=== PATIENT | female | born 1945 | race Caucasian/White ===

== ENCOUNTER 2022-07-02 09:07 | Outpatient (CLI) | payer MEDICARE, BC, SELFPAY ==
--- OUTSIDE RECORDS SUMMARY | 2022-07-02 09:15 | XMS_ITS | Encounter Summary ---
:1945 Author Organization [facility] Address [address] [place] [address] Care Team Providers Name Role Phone Elsewhere, Pcp Primary Care Provider Unavailable Encounter Details Date Type Department Care Team Description 11/05/2021 Clinical Communication Department of Arron Patricio Ophthalmology ar Knox M.D. [place], [place] [address] [place] [address] [address] [place] [phone] Social History Tobacco Use Types Packs/Day Years Used Date Smoking Tobacco: Never Smokeless Tobacco: Never Alcohol Habits Answer Date Recorded How often do you have a drink containing alcohol? Never 04/09/2022 How many drinks containing alcohol do you have on a typical Not asked day when you are drinking? How often do you have six or more drinks on one occasion? No t asked Social Isolation Answer Date Recorded In a typical week, how many times do you More than three fany es a week 04/09/2022 talk on the phone with family, friends, or neighbors? How often do you get together with friends More than three t imes a week 04/09/2022 or relatives? How often do you attend yazdanism or More than 4 times per year 04/09/2022 jain services? Do you belong to any clubs or Yes 04/09/2022 organizations such as yazdanism groups, unions, fraternal or athletic groups, or school groups? How often do you attend meetings of the More than 4 times pe r year 04/09/2022 clubs or organizations you belong to? Are you now , , , 04/09/2022 , never or living with a partner? Physical Activity Answer Date Recorded On average, how many days per week do you engage in moderate to 2 days 04/09/2022 strenuous exercise (like walking fast, running, jogging, dancing, swimming, biking, or other activities that cause a light or heavy sweat)? On average, how many minutes do you engage in exercise at th is 20 min 04/09/2022 level? Stress Answer Date Recorded Do you feel stress - tense, restless, nervous, or anxious, N ot at all 04/09/2022 or unable to sleep at night because your mind is troubled all the time - these days? Financial Resource Strain Answer Date Recorded How hard is it for you to pay for the very basics like Not h eloy at all 04/09/2022 food, housing, medical care, and heating? Intimate Partner Violence Answer Date Recorded Within the last year, have you been afraid of your partner o r No 04/09/2022 ex-partner? Within the last year, have you been humiliated or emotionall y No 04/09/2022 abused in other ways by your partner or ex-partner? Within the last year, have you been kicked, hit, slapped, or No 04/09/2022 otherwise physically hurt by your partner or ex-partner? Within the last year, have you been raped or forced to have any No 04/09/2022 kind of sexual activity by your partner or ex-partner? Food Insecurity Answer Date Recorded Within the past 12 months, you worried that your food would Never true 04/09/2022 run out before you got money to buy more. Within the past 12 months, the food you bought just didn't N ever true 04/09/2022 last and you didn't have money to get more. Transportation Needs Answer Date Recorded In the past 12 months, has lack of transportation kept you f rom No 04/09/2022 medical appointments or from getting medications? In the past 12 months, has lack of transportation kept you f rom No 04/09/2022 meetings, work, or getting things needed for daily living? Housing Stability Answer Date Recorded In the last 12 months, was there a time when you were not ab le No 04/09/2022 to pay the mortgage or rent on time? In the last 12 months, how many places have you lived? 1 04/09/2022 In the last 12 months, was there a time when you did not hav e a No 04/09/[address] or slept in a snf (including now)? Education Answer Date Recorded What is the highest level of school Associate degree: gerardo talbert, 04/02/2020 you have completed or the highest technical, or vocational p nasir degree you have received? Sex Assigned at Date Recorded Female 03/05/2018 7:34 PM CDT documented as of this encounter Miscellaneous Notes Telephone Encounter - Arielle Adams C.OMelissa - 11/05/2021 4:11 PM CDT ordered Telephone Encounter - Lalito Florentino - 11/05/2021 3:[address] order for Dr Patricio Lymphoma, ptosis lid Per CONSULTANT DIETITIAN: Slit lamp photos Thanks documented in this encounter Plan of Treatment Not on filedocumented as of this encounter Results Slit Lamp Photography - OU - Both Eyes (12/14/2021 4:03 PM CDT) Specimen (Source) Anatomical Location Collection Method / Collectio n Time Received Time / Laterality Volume Narrative OPHTHALMOLGY NON-IMAGING ORDERS - 4:49 PM CDT Left Eye Photos confirm and document clinical fin dings of diagnosis and are of sufficient quality to permit their use t o follow disease progression. Notes Subconjunctival lymphoma, left eye; ptos is, left upper eyelid; similar to previous photograph Arron Patricio M.D. 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
--- OUTSIDE RECORDS SUMMARY | 2022-07-02 09:15 | XMS_ITS | Encounter Summary ---
:1945 Author Organization [facility] Address [address] [place] [address] Care Team Providers Name Role Phone Elsewhere, Pcp Primary Care Provider Unavailable Reason for Visit Reason Comments Pre-visit Intake Intake Assessment Encounter Details Date Type Department Care Team Description 10/02/2021 Clinical Division of Kevin Pre-visit Tera hodges; Communication Hematology in Arturo Ricks, Intake As avery Castillo M.D. [place] [address] [facility] [address] [place] [phone] Social History Tobacco Use Types Packs/Day Years [...] or relatives? How often do you attend islam or More than 4 times per year 04/09/2022 scientology services? Do you belong to any clubs or Yes 04/09/2022 organizations such as islam groups, unions, fraternal or athletic groups, or [...] PM CDT documented as of this encounter Plan of Treatment Not on filedocumented as of this encounter Visit Diagnoses Not on filedocumented in this encounter Care Teams District Commercial Superintendent Relationship Specialty Start Date End Date Elsewhere, Pcp PCP - General Family Medicine 03/04/21 documented as of this encounter
--- OUTSIDE RECORDS SUMMARY | 2022-07-02 09:15 | XMS_ITS | Encounter Summary ---
:1945 Author Organization [facility] Address [address] [place] [address] Care Team Providers Name Role Phone Elsewhere, Pcp Primary Care Provider Unavailable Encounter Details Date Type Department Care Team Description 10/28/2021 Orders Only Division of [place] [facility] Hematology in Arturo Ricks Macroglobu linemia (HCC) Ana Castillo (Primary Dx) [place] [address] [facility] [address] [place] [phone] Social History Tobacco Use Types Packs/Day Years [...] or relatives? How often do you attend spiritism or More than 4 times per year 04/09/2022 mandaen services? Do you belong to any clubs or Yes 04/09/2022 organizations such as spiritism groups, unions, fraternal or athletic groups, or [...] minutes do you engage in exercise at is 20 min 04/09/2022 level? Stress Answer [...] place to sleep or slept in a penitentiary (including now)? Education Answer Date Recorded What is the highest level of school Associate degree: gerardo ubaldoraul, 04/02/2020 you have completed or the highest technical, or vocational p nasir degree you have received? Sex Assigned at Date Recorded Female 03/05/2018 7:34 PM CDT documented as of this encounter Plan of Treatment Not on filedocumented as of this encounter Results (ABNORMAL) Immunoglobulin Free Light Chains (04/07/2022 8:15 AM CDT) Analysis Performed At Patho logist Time Signature Crumpler Free 2.58 (H) 0.3300 - 04/08/2022 [facility] Light Chain, S 1.94 mg/dL 10:03 AM CDT Lambda Free 0.4300 (L) 0.5700 - 04/08/2022 [facility] Light Chain, S 2.63 mg/dL 10:18 AM CDT Crumpler/Lambda 6.00 (H) 0.2600 - 04/08/2022 [facility] FLC Ratio 1.65 10:18 AM CDT Specimen Anatomical Collection Method Collection Time Receive d Time (Source) Location / / Volume Laterality Blood (Blood, 04/07/2022 8:15 AM 04/08/20 22 6:23 Venous) CDT AM CDT Resulting Agency Comment Mailed In Specimen Arturo Ricks M.D. LAB BLOOD ADD-ON Performing Organization Address City/State/ZIP Code Phon e Number [facility] [address] [place], [place] [address] [facility] [place] [address] Laboratory Medicine and Pathology [address] [place] (ABNORMAL) Electrophoresis, Protein (04/07/2022 8:15 AM CDT) Patholo gist Method Time Signature Total Protein, 6.7 6.3 - 7.9 04/08/2022 [facility] S g/dL 7:17 AM CDT Albumin 3.5 3.4 - 4.7 04/08/2022 [facility] g/dL 1:23 PM CDT Alpha-1 0.3 0.1 - 0.3 04/08/2022 [facility] Globulin g/dL 1:23 PM CDT Alpha-2 1.1 (H) 0.6 - 1.0 04/08/2022 [facility] Globulin g/dL 1:23 PM CDT Beta-Globulin 0.9 0.7 - 1.2 04/08/2022 [facility] g/dL 1:23 PM CDT Gamma-Globulin 1.0 0.6 - 1.6 04/08/2022 [facility] g/dL 1:23 PM CDT A/G Ratio 1.12 04/08/2022 [facility] 1:23 PM CDT M spike 0.8 (H) g/dL 04/08/2022 [facility] 1:23 PM CDT Impression M-spike in 04/08/2022 [facility] gamma 1:23 PM CDT fraction. Specimen Anatomical Collection Method Collection Time Receive d Time (Source) Location / / Volume Laterality Blood (Blood, 04/07/2022 8:15 AM 04/08/20 22 6:21 Venous) CDT AM CDT Resulting Agency Comment Mailed In Specimen Authorizing Provider Result Sammi Ricks M.D. LAB BLOOD ADD-ON Performing Organization Address City/State/ZIP Code Phon e Number [facility] [address] [place], [place] [address] SUPPORT CENTER [facility] [place] [place] [address] Laboratory Medicine and Pathology [address] [place] LD (Lactate Dehydrogenase) (04/07/2022 8:15 AM CDT) Analysis Performed At Patho logist Time Signature Lactate 189 122 - 222 04/07/2022 [facility] Dehydrogenase U/L 9:31 PM CDT (LD), S Specimen Anatomical Collection Method Collection Time Receive d Time (Source) Location / / Volume Laterality Blood (Blood, 04/07/2022 8:15 AM 04/07/20 22 7:43 Venous) CDT PM CDT Resulting Agency Comment Mailed In Specimen Arturo Rciks M.D. LAB BLOOD NON ADD-ON Performing Organization Address City/State/ZIP Code Phon e Number [facility] - [address] [place], [place] [address] [facility] [place] [address] [facility] 200 [facility] (ABNORMAL) Comprehensive Metabolic Panel (04/07/2022 8:15 AM CDT) P athologist Signature Potassium, S 3.8 3.6 - 5.2 04/07/2022 DTL mmol/L 8:03 PM CDT Sodium, S 136 135 - 145 04/07/2022 DTL mmol/L 8:03 PM CDT Chloride, S 97 (L) 98 - 107 04/07/2022 DTL mmol/L 8:03 PM CDT Bicarbonate, S 26 22 - 29 04/07/2022 DTL mmol/L 8:03 PM CDT Anion Gap 13 7 - 15 04/07/2022 DTL 8:03 PM CDT BUN (Blood Urea 20 6 - 21 04/07/2022 DTL Nitrogen), S mg/dL 8:03 PM CDT Creatinine 0.76 0.59 - 04/07/2022 DTL 1.04 mg/dL 8:03 PM CDT eGFR-Non 76 >=60 04/07/2022 DTL Black/ mL/min/BSA 8:03 PM CDT Armenian Comment: ----ADDITIONAL INFORMATION---- Estimated GFR calculated using the 2009 CKD_EPI creatinine equation. eGFR-Black/ 88 >=60 mL/min/BSA 2021 8:03 PM CDT DTL Comment: ----ADDITIONAL INFORMATION---- Estimated GFR calculated using the 2009 CKD_EPI creatinine equation. Calcium, Total, S 9.0 8.8 - 10.2 mg/dL 04/07/2022 8:03 PM CDT DTL Glucose, S 96 70 - 140 mg/dL 04/07/2022 8:03 PM CDT D TL Protein, Total, S 6.6 6.3 - 7.9 g/dL 04/07/2022 8:03 P M CDT DTL Albumin, S 4.4 3.5 - 5.0 g/dL 04/07/2022 8:03 PM CDT D TL Aspartate Aminotransferase (AST), 23 8 - 43 U/L 04/07 8:03 PM CDT DTL S Alkaline Phosphatase, S 62 35 - 104 U/L 04/07/2022 8: 03 PM CDT DTL Alanine Aminotransferase (ALT), S 19 7 - 45 U/L 04/07 8:03 PM CDT DTL Bilirubin, Total, S 0.8 <=1.2 mg/dL 04/07/2022 8:03 PM CDT DTL Specimen Anatomical Collection Method Collection Time Receive d Time (Source) Location / / Volume Laterality Blood (Blood, 04/07/2022 8:15 AM 04/07/20 7:43 Venous) CDT PM CDT Resulting Agency Comment Mailed In Specimen Arturo Ricks M.D. LAB BLOOD ADD-ON Performing Organization Address City/State/ZIP Code Phon e Number [facility] - [address] [place] [address] [facility] [place] [address] [facility] 200 [facility] (ABNORMAL) CBC with Differential, Blood (04/07/2022 8:15 AM CDT) [facility] gist Method Time Signature Hemoglobin 13.0 11.6 - 04/07/2022 DTL 15.0 g/dL 7:52 PM CDT Hematocrit 39.7 35.5 - 04/07/2022 DTL 44.9 % 7:52 PM CDT Erythrocytes 4.47 3.92 - 04/07/2022 DTL 5.13 7:52 PM CDT x10(12)/L MCV 88.8 78.2 - 04/07/2022 DTL 97.9 fL 7:52 PM CDT RBC Distrib Width 12.9 12.2 - 04/07/2022 DTL 16.1 % 7:52 PM CDT Platelet Count 225 157 - 371 04/07/2022 DTL x10(9)/L 7:52 PM CDT Leukocytes 3.1 (L) 3.4 - 9.6 04/07/2022 DTL x10(9)/L 7:52 PM CDT Neutrophils 1.94 1.56 - 04/07/2022 DTL 6.45 7:52 PM CDT x10(9)/L Lymphocytes 0.65 (L) 0.95 - 04/07/2022 DTL 3.07 7:52 PM CDT x10(9)/L Monocytes 0.30 0.26 - 04/07/2022 DTL 0.81 7:52 PM CDT x10(9)/L Eosinophils 0.19 0.03 - 04/07/2022 DTL 0.48 7:52 PM CDT x10(9)/L Basophils 0.03 0.01 - 04/07/2022 DTL 0.08 7:52 PM CDT x10(9)/L Specimen Anatomical Collection Method Collection Time Receive d Time (Source) Location / / Volume Laterality Blood (Blood, 04/07/2022 8:15 AM 04/07/20 22 7:43 Venous) CDT PM CDT Resulting Agency Comment Mailed In Specimen Arturo Ricks M.D. LAB BLOOD ADD-ON Performing Organization Address City/State/ZIP Code Phon e Number [facility] - [address] [place], [place] [address] [facility] [place] [address] [facility] [address] documented in this encounter Visit Diagnoses Diagnosis Waldenstrom's Macroglobulinemia (HCC) - Primary documented in this encounter Care Teams Wellness Trainer Relationship Specialty Start Date End Date Elsewhere, Pcp PCP - General Family Medicine 03/04/21 documented as of this encounter
--- OUTSIDE RECORDS SUMMARY | 2022-07-02 09:15 | XMS_ITS | Encounter Summary ---
:1945 Author Organization [facility] Address [address] [place] [address] Care Team Providers Name Role Phone Elsewhere, Pcp Primary Care Provider Unavailable Encounter Details Date Type Department Care Team Description 05/11/2022 Ancillary Procedure Department of Ophthalmology Social History Tobacco Use Types Packs/Day Years [...] or relatives? How often do you attend hindu or More than 4 times per year 04/09/2022 mormonism services? Do you belong to any clubs or Yes 04/09/2022 organizations such as hindu groups, unions, fraternal or athletic groups, or [...] place to sleep or slept in a long-term (including now)? Education Answer Date Recorded What is the highest level of school Associate degree: gerardo talbert, 04/02/2020 you have completed or the highest technical, or vocational p nasir degree you have received? Sex Assigned at Date Recorded Female 03/05/2018 7:34 PM CDT documented as of this encounter Plan of Treatment Not on filedocumented as of this encounter Procedures Procedure Name Priority Date/Time Associated Comments Diagnosis OPHTHALMOLOGY IMAGE Routine 05/11/2022 12:00 Resu lts for this EXAM AM CDT procedure are i n the results section. documented in this encounter Results Eyes Slit Lamp-Ophthalmology Image Exam (05/11/2022 12:00 AM CDT) Specimen (Source) Anatomical Location Collection Method / Collectio n Time Received Time / Laterality Volume Narrative IIMS - 05/11/2022 2:50 PM CDT This order has been created and auto-finalized to support the import of images acquired without order. The clini italo documentation to support these images can be found on the encounter melita t produced images. Provider Not In System IMG NON RAD IMAGING PROCEDUR ES Performing Organization Address City/State/ZIP Code Phon e Number [facility] IIMS NA documented in this encounter Visit Diagnoses Not on filedocumented in this encounter Care Teams Bog Worker Relationship Specialty Start Date End Date Elsewhere, Pcp PCP - General Family Medicine 03/04/21 documented as of this encounter
--- OUTSIDE RECORDS SUMMARY | 2022-07-02 09:15 | XMS_ITS | Encounter Summary ---
:1945 Author Organization [facility] Address [address] [place] [address] Care Team Providers Name Role Phone Elsewhere, [...] More than 4 times per year 04/09/2022 islam services? Do you belong to any clubs [...] place to sleep or slept in a longterm (including now)? Education Answer Date Recorded What [...] on filedocumented in this encounter Care Teams Cutter Plastics Rolls Relationship Specialty Start Date End Date Elsewhere, Pcp PCP - General Family Medicine 03/04/21 documented as of this encounter
--- OUTSIDE RECORDS SUMMARY | 2022-07-02 09:15 | XMS_ITS | Encounter Summary ---
:1945 Author Organization [facility] Address [address] [place] [address] Care Team Providers Name Role Phone Elsewhere, Pcp Primary Care Provider Unavailable Reason for Visit Reason Comments Intraocular Lens Implant Status Post Appointment Request (Routine) - Closed Specialty Diagnoses / Procedures Referred By Contact Refer red To Contact Ophthalmology Diagnoses Ptosis Eyelid Arron Patricio M.D. [address] [place] [phone] Referral ID Status Reason Start Date Expiration Date Visits Requ ested Visits Authorized [id number] Closed 11/05/2021 11/05/2022 1 Encounter Details Date Type Department Care Team Description 12/14/2021 Office Visit Department of Arron Patricio Blurred Visserenity mazariegos Ophthalmology ar Knox M.D. (Primary Dx) [place], [place] [address] [place] [address] [place] [phone] Social History Tobacco Use Types Packs/Day Years [...] or relatives? How often do you attend druze or More than 4 times per year 04/09/2022 orthodoxy services? Do you belong to any clubs or Yes 04/09/2022 organizations such as druze groups, unions, fraternal or athletic groups, or [...] place to sleep or slept in a fci (including now)? Education Answer Date Recorded What is the highest level of school Associate degree: gerardo talbert, 04/02/2020 you have completed or the highest technical, or vocational p nasir degree you have received? Sex Assigned at Date Recorded Female 03/05/2018 7:34 PM CDT documented as of this encounter Progress Notes Arron Patricio M.D. - 12/14/2021 2:45 PM CDT #1 Blurred and double vision Mainly when she does not wear her glasses and is looking in extreme gaze. One wearing glasses she says she is doing well. Discussed and reassured that this can be normal. 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 Discussed that this might interfere with vision and if it is bothering her then we should consider treating the lymphoma followed by reassessing the eyelid position. She understands. 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 s/p chemo, ended February 2017 Today looks stable, mild thickening of subconj tissue. Plan: Continue to observe. Continue follow-up with heme. #4 Waldenstrom macroglobulinemia #5 Pseudophakia, both eyes Stable documented in this encounter Plan of Treatment Not on filedocumented as of this encounter Visit Diagnoses Diagnosis Blurred Vision - Primary documented in this encounter Care Teams Packager Relationship Specialty Start Date End Date Elsewhere, Pcp PCP - General Family Medicine 03/04/21 documented as of this encounter
--- OUTSIDE RECORDS SUMMARY | 2022-07-02 09:15 | XMS_ITS | Clinical Summary ---
:1945 Author Organization [facility] [place] [address] Care Team Providers Name Role Phone Brijesh Ken MD Primary Care Provider Allergies No known active allergies Medications Medication Sig Dispensed Refills Start Date End Date Status FISH OIL 1,000 MG 2 bid (500 mg EPA 0 01/02/2007 Active CAPIndications: + DHA per Palpitations capusule) COQ10 SG 100 100 MG-100 one daily 0 01/02/2007 Active UNIT CAPIndications: Palpitations GARLIC 400 MG TAB, two tabs daily 0 06/25/2008 Active DELAYED RELEASE VITAMIN D-3 400 UNIT taking 5000 IU 0 06/25/2009 Active TAB daily multivitamin (MVI) Take 1 tablet by 0 10/28/2009 Active tablet mouth once daily. Active Problems Problem Noted Date MDRO (multiple drug resistant organisms) resistance Unspecified essential hypertension 01/02/2007 Waldenstrom's 01/02/2007 Overview: Followed by Dr. Freitas Gets intermittan Retuxan treatment when Hemoglobin<10.0 or IGA > 6000 Immunizations Name Administration Dates Next Due Pneumococcal Poly,23-Valent (Pneumovax) 01/30/2003 Td (Age >=7 Years) 01/30/2003 Td, Preservative Free (age >= 7 Years) 04/16/2010 Family History Medical History Relation Name Comments Heart Disease Father Cancer-colon Mother Cancer Sister uterine cancer Relation Name Status Comments Father (Age 80) CHF Mother (Age 85) colon cancer Sister Social History Tobacco Use Types Packs/Day Years Used Date Never Smoker Tobacco Cessation: Counseling Given: Yes Alcohol Use Standard Drinks/Week Comments No 0 (1 standard drink = 0.6 oz pure alcoho l) Sex Assigned at Date Recorded Not on file Obstetrics History Para Term AB IAB SAB Ectopic Multiple Living Live Births 4 3 2 1 1 0 1 0 0 3 Date Outcome GA Total Labor/2nd/3rd Weight Sex Delivery Anes PTL Izzy A 1 A5 Name Clin Labor SAB Term Term Last Filed Vital Signs Vital Sign Reading Time Taken Comments Blood Pressure 158/79 08/31/2014 2:51 PM B[employer]ER [employer] BOX BUILDER Pulse 76 08/31/2014 2:51 PM [employer]OX BUILDER Temperature 36.8 ??C (98.2 ??F) 08/31/2014 2:51 PM B[employer] B[employer] BUILDER Respiratory Rate - - Oxygen Saturation 97% 08/31/2014 2:51 PM B[employer]OX BUILDER Inhaled Oxygen Concentration - - Weight 71.7 kg (158 lb) 08/31/2014 2:51 PM B[employer]ER [employer] BOX BUILDER Height 165.1 cm (5' 5) 07/11/2009 8:05 AM B[employer] BOX BUILDER Body Mass Index 26.29 07/11/2009 8:05 AM B[employer] BOX BUILDER Plan of Treatment Health Maintenance Due Date Last Done Comments COVID-19 vaccine series (#1) 05/18/1946 Tdap 11/16/1955 Depression screening for age 12+ 1956 BMI (ht and wt on same day) for age 18+ 1962 Hepatitis C screening for age 18-79 1962 Zoster (shingles) series for age 50+ (1 of 1994 2) Pneumococcal series for age 65+ (2 - PCV) 01/31/20042002 Tetanus booster 04/16/2020 04/16/2010, 01/30/2003 Influenza for age 65+ 04/22/2022 DEXA/DXA scan for age 65+ Completed 11/04/2009, 07/06/2007 Results Not on filefrom Last 3 Months Insurance Payer Benefit Plan / Subscriber ID Effective Dates Phone Addre ss Type Group BLUE CROSS MR BLUE CROSS [id number] 2014-Giselle GOMEZ [id number] [employer] BLUE MR luma [facility] [place] PB ONLY [phone] (Work) [id number] Care Teams Dry Cleaning Manager Relationship Specialty Start Date End Date Brijesh Ken MD PCP - General 08/31/141999 [place] [address]
--- OUTSIDE RECORDS SUMMARY | 2022-07-02 09:15 | XMS_ITS | Encounter Summary ---
:1945 Author Organization [facility] Address [address] [place] [address] Care Team Providers Name Role Phone Elsewhere, [...] or relatives? How often do you attend sikh or More than 4 times per year 04/09/2022 adventist services? Do you belong to any clubs or Yes 04/09/2022 organizations such as sikh groups, unions, fraternal or athletic groups, or [...] place to sleep or slept in a assisted (including now)? Education Answer Date Recorded What [...] Associated Comments Diagnosis OPHTHALMOLOGY IMAGE Routine 05/11/2022 12:20 Resu lts for this EXAM AM CDT procedure are i n the results section. documented in this encounter Results Eyes Slit Lamp-Ophthalmology Image Exam (05/11/2022 12:20 AM CDT) Specimen (Source) Anatomical Location Collection Method / Collectio n Time Received Time / Laterality Volume Narrative IIMS - 05/11/2022 3:20 PM CDT This order has been created [...] on filedocumented in this encounter Care Teams Lathe Operator Contact Lens Relationship Specialty Start Date End Date Elsewhere, Pcp PCP - General Family Medicine 03/04/21 documented as of this encounter
--- OUTSIDE RECORDS SUMMARY | 2022-07-02 09:15 | XMS_ITS | Encounter Summary ---
:1945 Author Organization [facility] Address [address] [place] [address] Care Team Providers Name Role Phone Elsewhere, [...] or relatives? How often do you attend christianity or More than 4 times per year 04/09/2022 yazidi services? Do you belong to any clubs or Yes 04/09/2022 organizations such as christianity groups, unions, fraternal or athletic groups, or [...] place to sleep or slept in a detention (including now)? Education Answer Date Recorded What [...] on filedocumented in this encounter Care Teams Inbound Sales Consultant Relationship Specialty Start Date End Date Elsewhere, Pcp PCP - General Family Medicine 03/04/21 documented as of this encounter
--- OUTSIDE RECORDS SUMMARY | 2022-07-02 09:15 | XMS_ITS | Encounter Summary ---
:1945 Author Organization [facility] Address [address] [place] [address] Care Team Providers Name Role Phone Elsewhere, Pcp Primary Care Provider Unavailable Reason for Referral Outpatient (Routine) - Closed Specialty Diagnoses / Procedures Referred By Contact Refer red To Contact Video Medicine Diagnoses Waldenstrom's Macroglobulinemia (HCC) [facility] Arturo Mckeon M.D. [address] [place] [address] Referral ID Status Reason Start Date Expiration Date Visits Requ ested Visits Authorized [id number] Closed 10/06/2021 10/06/2022 1 1 HAT LINUX ADMINISTRATOR Reason for Visit Appointment Request (Routine) - Closed Specialty Diagnoses / Procedures Referred By Contact Refer red To Contact Hematology Diagnoses Lymphoma (HCC) Referral ID Status Reason Start Date Expiration Date Visits Requ ested Visits Authorized [id number] Closed 07/23/2021 07/23/2022 1 1 Encounter Details Date Type Department Care Team Description 10/06/2021 [facility] Arturo Ricks, Macroglobu linemia (HCC) Ana Castillo (Primary Dx) [address] [place] [phone] [phone] Social History Tobacco Use Types Packs/Day Years [...] or relatives? How often do you attend adventism or More than 4 times per year 04/09/2022 yarsanism services? Do you belong to any clubs or Yes 04/09/2022 organizations such as adventism groups, unions, fraternal or athletic groups, or [...] place to sleep or slept in a correction (including now)? Education Answer Date Recorded What is the highest level of school Associate degree: gerardo talbert, 04/02/2020 you have completed or the highest technical, or vocational p nasir degree you have received? Sex Assigned at Date Recorded Female 03/05/2018 7:34 PM CDT documented as of this encounter Progress Notes Arturo Aleman M.D. - 10/06/2021 9:30 AM CST SUBJECTIVE REASON FOR VISIT Waldentrom's macroglobulinemia Consult conducted via real-time audio/video technology by Soraya Ricks M.D. in [facility] to the patient in Patient's Home HISTORY OF PRESENT ILLNESS Patient is a 75 y.o. woman with Waldentrom's macroglobulinemia whose hematological history may be summarized as follows: 1. 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 9439-2799: Treated with rituximab, intermittently, totaling 10 different series. 3. November 14 to March 07, 2012: Treated with dexamethasone plus rituximab plus cyclophosphamide for 6 cycles. 4. November 08 to January 25, 2017: Treated with rituximab plus bendamustine for 3 cycles. 5. January 2017 to present: Observed without treatment, maintaining partial response. INTERVAL HISTORY Real-time video visit to follow-up on Waldentrom's macroglobulinemia. Last visit was on April 07, 2021. No clinical events in the interim. On my interview today she reports to be feeling well and denies constitutional symptoms such as fevers, chills, drenching night sweats, unintentional weight loss. REVIEW OF SYSTEMS All systems reviewed and negative except for HPI. OBJECTIVE There were no vitals filed for this visit. There is no height or weight on file to calculate BSA. PHYSICAL EXAM General: Accompanied by . No acute distress. ECOG performance statis is 0. Real-time video visit, patient not fully examined. DIAGNOSTICS Mail-in labs from September 28, 2021 reviewed today. CBC with differential is within normal limits with exception of stable mild lymphopenia. Blood chemistry is unremarkable. LDH is normal. Special protein studies from the serum shows M spike of 0.9. [place] free light chain is 2.6 with a ratio of 6.19. IgM is 1230. ASSESSMENT / PLAN #1 Waldentrom's macroglobulinemia She continues to do well with no hematological manifestations of her disease. Special protein studies are largely stable. At this time she is maintaining a good response from her previous therapy and there is no indication for treatment at this time. Will continue to monitor with the next touch point in 6 months. She will do labs locally and send to [facility] as a mail in. I will review those results with her in a video visit. Follow-up: Local labs in 6 months followed by a video visit. Education We discussed the diagnosis and treatment plan in detail. The patient expressed understanding of the content. No apparent learning barriers were identified; learning preferences include listening. I personally spent over half of a total 35 minutes face to face with the patient in counseling and discussion and/or coordination of care as described above. Signed by: Soraya Ricks M.D. 10/06/2021 HAT LINUX ADMINISTRATOR documented in this encounter Plan of Treatment Scheduled Referrals Name Type Priority Associated Diagnoses Order S chedule Video anyplace Outpatient Routine Waldenstrom's Expected: visit Referral Macroglobulinemia (HCC) 03/23 (Approximate), Expires: 01/03/2023 documented as of this encounter Visit Diagnoses Diagnosis Waldenstrom's Macroglobulinemia (HCC) - Primary documented in this encounter Care Teams Boarder Steam Relationship Specialty Start Date End Date Elsewhere, Pcp PCP - General Family Medicine 03/04/21 documented as of this encounter
--- OUTSIDE RECORDS SUMMARY | 2022-07-02 09:15 | XMS_ITS | Encounter Summary ---
:1945 Author Organization [facility] Address [address] [place] [address] Care Team Providers Name Role Phone Elsewhere, Pcp Primary Care Provider Unavailable Reason for Referral Outpatient (Routine) - Authorized Specialty Diagnoses / Procedures Referred By Contact Refer red To Contact Video Medicine Diagnoses Waldenstrom's Macroglobulinemia (HCC) [facility] Arturo Mckeon M.D. [address] [place] [address] Referral ID Status Reason Start Date Expiration Date Visits V isits Requested Authorized [id number] Authorized 04/16/2022 04/16/2023 1 1 Reason for Visit Outpatient (Routine) - Closed Specialty Diagnoses / Procedures Referred By Contact Refer red To Contact Video Medicine Diagnoses Waldenstrom's Macroglobulinemia (HCC) [facility] Arturo Mckeon M.D. [address] [place] [address] Referral ID Status Reason Start Date Expiration Date Visits Requ ested Visits Authorized [id number] Closed 10/06/2021 10/06/2022 1 1 Encounter Details Date Type Department Care Team Description 04/16/2022 Telemedicine Division of [facility] in Arturo Ricks, Macroglobu linemia (HCC) Ana Castillo [place] [address] [place] [phone] Social History Tobacco Use Types Packs/Day Years [...] or relatives? How often do you attend amish or More than 4 times per year 04/09/2022 catholic services? Do you belong to any clubs or Yes 04/09/2022 organizations such as amish groups, unions, fraternal or athletic groups, or [...] or the highest technical, or vocational p rogram degree you have received? Sex Assigned at Date Recorded Female 03/05/2018 7:34 PM CDT documented as of this encounter Progress Notes Arturo Aleman M.D. - 04/16/2022 10:00 AM CDT SUBJECTIVE REASON FOR VISIT Waldentrom's macroglobulinemia Consult conducted via real-time audio/video technology by Soraya Ricks M.D. in [facility] to the patient in Patient's Home HISTORY OF PRESENT ILLNESS Patient is a 76 y.o. woman with Waldentrom's macroglobulinemia whose hematological history may be summarized as follows: 1. 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 [id number]: Treated with rituximab, intermittently, totaling 10 different [...] on Waldentrom's macroglobulinemia. Last visit was on September. No clinical events in the interim with the exception of an uncomplicated UTI about a month agotreated successfully with antibiotics. On my interview today she reports to [...] not fully examined. DIAGNOSTICS Mail-in labs from April 07, 2022 reviewed today. CBC with differential is within normal limits withexception of mild leukopenia with white blood cell count of 3.1 and stable mild lymphopenia. Blood chemistry is unremarkable. LDH is normal. Special protein studies from the serum shows M spike of 0.8,stable from prior. [place] free light chain is 2.6 with a ratio of 6.0, both also stable from prior. ASSESSMENT / PLAN #1 Waldentrom's macroglobulinemia She [...] will do labs locally and send to [facility] as a mail in. I will [...] described above. Signed by: Soraya Ricks M.D. 04/16/2022 documented in this encounter Plan of Treatment Scheduled Referrals Name Type Priority Associated Diagnoses Order S chedule Video anyplace Outpatient Routine Waldenstrom's Expected: visit Referral Macroglobulinemia (HCC) 09/23 (Approximate), Expires: 07/17/2023 documented as of this encounter Visit Diagnoses Diagnosis Waldenstrom's Macroglobulinemia (HCC) documented in this encounter Care Teams Customer Experience Leader Relationship Specialty Start Date End Date Elsewhere, Pcp PCP - General Family Medicine 03/04/21 documented as of this encounter
--- OUTSIDE RECORDS SUMMARY | 2022-07-02 09:15 | XMS_ITS | Encounter Summary ---
:1945 Author Organization [facility] Address [address] [place] [address] Care Team Providers Name Role Phone Elsewhere, Pcp Primary Care Provider Unavailable Encounter Details Date Type Department Care Team Description 12/14/2021 Ancillary Procedure Department of Ophthalmology Social History [...] More than 4 times per year 04/09/2022 temple services? Do you belong to any clubs [...] place to sleep or slept in a group home (including now)? Education Answer Date Recorded What [...] Date/Time Associated Comments Diagnosis OPHTHALMOLOGY IMAGE Routine 12/14/2021 12:00 Resu lts for this EXAM AM CDT procedure are i n the results section. documented in this encounter Results Eyes Slit Lamp-Ophthalmology Image Exam (12/14/2021 12:00 AM CDT) Specimen (Source) Anatomical Location Collection Method / Collectio n Time Received Time / Laterality Volume Narrative IIMS - 12/14/2021 4:05 PM CDT This order has been created [...] on filedocumented in this encounter Care Teams Labor Economist Relationship Specialty Start Date End Date Elsewhere, Pcp PCP - General Family Medicine 03/04/21 documented as of this encounter
--- OUTSIDE RECORDS SUMMARY | 2022-07-02 09:15 | XMS_ITS | Encounter Summary ---
:1945 Author Organization [facility] Address [address] [place] [address] Care Team Providers Name Role Phone Elsewhere, Pcp Primary Care Provider Unavailable Encounter Details Date Type Department Care Team Description 03/17/2022 [facility] Arturo Ricks, Macroglobul inemia (HCC) Medicine and M.D. Pathology, [place] [address] [place] [address] [facility] [address] [place] [phone] [place] [address] (Work) [place], [place] [phone] [phone] (Fax) [phone] Social History Tobacco Use Types Packs/Day Years [...] or relatives? How often do you attend uatsdin or More than 4 times per year 04/09/2022 druze services? Do you belong to any clubs or Yes 04/09/2022 organizations such as uatsdin groups, unions, fraternal or athletic groups, or [...] place to sleep or slept in a residential (including now)? Education Answer Date Recorded What is the highest level of school Associate degree: gerardo nitish, 04/02/2020 you have completed or the highest technical, or vocational p nasir degree you have received? Sex Assigned at Date Recorded Female 03/05/2018 7:34 PM CDT documented as of this encounter Medications at Time of Discharge Medication Sig Dispensed Refills Start Date End Date CALCIUM ORAL Take 1 capsule by mouth 0 12/07/2016 daily. MICROCRYSTALLINE HYDROXYAPATITE Calcium supplement cholecalciferol Take 1 tablet by mouth 0 07/12/20 13 (VITAMIN D3) 125 mcg daily. (5,000 Unit) tablet magnesium oxide daily. 0 (MAG-OX) 400 mg (241.3 mg magnesium) tablet omega-3 fatty Take 2 capsules by 0 12/07/2016 acids/fish oil (OMEGA mouth daily. 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) [employer] TURMERIC ROOT EXTRACT Take 1 tablet by mouth 0 ORAL as needed. vit A and D3 in cod daily. 0 liver oiL 1,250-135 unit capsule zinc acetate (GALZIN) Take 50 mg by mouth 2 0 25 mg (zinc) capsule (two) times a week. multivitamin tablet Take 1 tablet by mouth. 0 04/201004/16/2022 documented as of this encounter Plan of Treatment Not on filedocumented as of this encounter Procedures Procedure Name Priority Date/Time Associated Diagnosis Comme nts IMMUNOGLOBULIN FREE Routine 04/07/2022 8:15 [facility] Resu lts for LIGHT CHAINS, S AM CDT Macroglobulinemia (HCC) t his procedure are in the results section. CBC WITH Routine 04/07/2022 8:15 [facility] Results for DIFFERENTIAL, B AM CDT Macroglobulinemia (HCC) t his procedure are in the results section. ELECTROPHORESIS, Routine 04/07/2022 8:15 [facility] Results for PROTEIN, S AM CDT Macroglobulinemia (HCC) this procedure are in the results section. LACTATE DEHYDROGENASE Routine 04/07/2022 8:15 [facility] Re sults for (LD), S AM CDT Macroglobulinemia (HCC) this procedure are in the results section. COMPREHENSIVE Routine 04/07/2022 8:15 [facility]strom's Results fo r METABOLIC PANEL, S/P AM CDT Macroglobulinemia (H CC) this procedure are in the results section. documented in this encounter Results (ABNORMAL) Immunoglobulin Free Light Chains (04/07/2022 8:15 AM CDT) Analysis Performed At Patho logist Time Signature [place] Free 2.58 (H) 0.3300 - 04/08/2022 [facility] Light Chain, S 1.94 mg/dL 10:03 AM CDT Lambda Free 0.4300 (L) 0.5700 - 04/08/2022 [facility] Light Chain, S 2.63 mg/dL 10:18 AM CDT [place]/Lambda 6.00 (H) 0.2600 - 04/08/2022 [facility] FLC Ratio 1.65 10:18 AM CDT Specimen Anatomical Collection Method Collection Time Receive d Time (Source) Location / / Volume Laterality Blood (Blood, 04/07/2022 8:15 AM 04/08/20 22 6:23 Venous) CDT AM CDT Resulting Agency Comment Mailed In Specimen Arturo Ricks M.D. LAB BLOOD ADD-ON Performing Organization Address City/State/ZIP Code Phon e Number [facility] [address] [place], [place] [address] [facility] [place] [address] Laboratory Medicine and Pathology [address] [...] M.D. LAB BLOOD ADD-ON Performing Organization Address City/[facility]/ZIP [facility] Phon e Number [facility] [address] [place], [place] [address] [facility] [place] [address] Laboratory Medicine and Pathology [address] PORTILLO YI (Lactate Dehydrogenase) (04/07/2022 8:15 AM CDT) Analysis [...] In Specimen Arturo Ricks M.D. LAB BLOOD NON ADD-ON Performing Organization Address City/[facility]/ZIP [facility] Phon e Number [facility] - [address] [place], [place] [address] [facility] [place] [place] [address] Laboratories-[facility] [address] (ABNORMAL) Comprehensive Metabolic Panel (04/07/2022 8:15 AM [...] 04/07/2022 DTL Black/ mL/min/BSA 8:03 PM CDT [place]er Comment: ----ADDITIONAL INFORMATION---- Estimated GFR calculated using [...] Organization Address City/State/ZIP Code Phon e Number [facility] - [address] [place] [phone] [facility] [place] [place] [address] [facility] [address] [facility] (ABNORMAL) CBC with Differential, Blood (04/07/2022 8:15 AM CDT) [facility] gist Method Time Signature Hemoglobin 13.0 [...] Organization Address City/State/ZIP Code Phon e Number [facility] - [address] [place], [place] [address] [facility] [place] [address] Laboratories[facility] [address] documented in this encounter Visit Diagnoses Diagnosis Waldenstrom's Macroglobulinemia (HCC) documented in this encounter Care Teams Rotary Driller Relationship Specialty Start Date End Date Elsewhere, Pcp PCP - General Family Medicine 03/04/21 documented as of this encounter
--- OUTSIDE RECORDS SUMMARY | 2022-07-02 09:15 | XMS_ITS | Encounter Summary ---
:1945 Author Organization [facility] Address [address] [place] [address] Care Team Providers Name Role Phone Elsewhere, Pcp Primary Care Provider Unavailable Encounter Details Date Type Department Care Team Description 04/19/2022 Orders Only Division of [facility] Hematology in A, R.N. Macroglobulinemia (HCC) [place], [place] [address] [place] [address] (Primary Dx) [address] [place] [phone] [phone] Social History Tobacco Use Types Packs/Day Years [...] or relatives? How often do you attend mandaeism or More than 4 times per year 04/09/2022 restoration services? Do you belong to any clubs or Yes 04/09/2022 organizations such as mandaeism groups, unions, fraternal or athletic groups, or [...] place to sleep or slept in a fpc (including now)? Education Answer Date Recorded What is the highest level of school Associate degree: gerardo talbert, 04/02/2020 you have completed or the highest technical, or vocational p nasir degree you have received? Sex Assigned at Date Recorded Female 03/05/2018 7:34 PM CDT documented as of this encounter Plan of Treatment Scheduled Orders Name Type Priority Associated Diagnoses Order S chedule CBC with Differential, Lab Routine Waldenstrom's Expe cted: Blood Macroglobulinemia (HCC) 09/23 (Approximate), Expires: 07/20/2023 Comprehensive Metabolic Lab Routine Waldenstrom's Exp ected: Panel Macroglobulinemia (HCC) 09/23 (Approximate), Expires: 07/20/2023 LD (Lactate Dehydrogenase) Lab Routine [facility]strom's Expected: Macroglobulinemia (HCC) 09/23 (Approximate), Expires: 07/20/2023 Monoclonal Gammopathy Lab Routine Waldenstrom's Expec robert: Monitoring Macroglobulinemia (HCC) 09/23 (Approximate), Expires: 07/20/2023 Immunoglobulins (IgG, IgA, Lab Routine Waldenstrom's Expected: and IgM) Macroglobulinemia (HCC) 09/23 (Approximate), Expires: 07/20/2023 documented as of this encounter Visit Diagnoses Diagnosis Waldenstrom's Macroglobulinemia (HCC) - Primary documented in this encounter Care Teams Filling Machine Operator Relationship Specialty Start Date End Date Elsewhere, Pcp PCP - General Family Medicine 03/04/21 documented as of this encounter
--- OUTSIDE RECORDS SUMMARY | 2022-07-02 09:15 | XMS_ITS | Clinical Summary ---
:1945 Author Organization [facility] Address [address] [place] [address] Care Team Providers Name Role Phone Elsewhere, Pcp Primary Care Provider Unavailable Source Comments Patient records contain information from all sites at [facility]. For routine questions regarding patient records, call [phone] during business hours, M-F 8:00 AM - 5:00 PM Central Time. Record requests for emergency care only can be directed to [phone] at any time.[facility] Allergies No known active allergies Medications Medication Sig Dispensed Refills Start Date End Date Status CALCIUM ORAL Take 1 capsule by 0 12/07/2016 Active mouth daily. MICROCRYSTALLINE HYDROXYAPATITE Calcium supplement omega-3 fatty Take 2 capsules by 0 12/07/2016 Active acids/fish oil mouth daily. (OMEGA 3 FISH OIL Omega[employer]ics by ORAL) [employer]ics TURMERIC ROOT Take 1 tablet by 0 04/26/2017 Active EXTRACT ORAL mouth as needed. cholecalciferol Take 1 tablet by 0 07/12/2013 Active (VITAMIN D3) 125 mcg mouth daily. (5,000 Unit) tablet zinc acetate Take 50 mg by mouth 2 0 Active (GALZIN) 25 mg (two) times a week. (zinc) capsule magnesium oxide daily. 0 Acti ve (MAG-OX) 400 mg (241.3 mg magnesium) tablet vit A and D3 in cod daily. 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 Macroglobulinem ia (HCC) (Primary Dx) 04/16/2022 Telemedicine Hematology [place] [facility]strom's Arturo Ricks, Macroglobul inemia (HCC) Ana from Last 3 Months Family History Medical History Relation Name Comments Glaucoma Sister Macular degeneration Neg Hx Relation Name Status Comments Sister Social History Tobacco Use Types Packs/Day [...] or relatives? How often do you attend jewish or More than 4 times per year 04/09/2022 presybeterian services? Do you belong to any clubs or Yes 04/09/2022 organizations such as jewish groups, unions, fraternal or athletic groups, or [...] place to sleep or slept in a [facility] (including now)? Education Answer Date Recorded What is the highest level of school Associate degree: occupa tional, 04/02/2020 you have completed or the highest technical, or vocational p nasir degree you have received? Sex Assigned at Date Recorded Female 03/05/2018 7:34 PM CDT Last Filed Vital Signs Vital Sign Reading Time Taken Comments Blood Pressure 155/84 04/07/2021 10:32 AM CDT Pulse 68 04/07/2021 10:32 AM CDT Temperature 35.6 ??C (96.1 ??F) 04/07/2021 10:32 AM CDT Respiratory Rate 16 03/04/2021 9:40 AM CDT Oxygen Saturation 96% 03/04/2021 9:40 AM CDT Inhaled Oxygen Concentration - - Weight 66.5 kg (146 lb 9.7 oz) 04/07/2021 10:32 AM CDT Height 165.4 cm (5' 5.12) 04/07/2021 10:32 AM CDT Body Mass Index 24.31 04/07/2021 10:32 AM CDT Plan of Treatment Health Maintenance Due Date Last Done Comments Hepatitis C Screening 1945 COVID-19 Vaccine (#1) 05[birth year]18/1946 Zoster Vaccines (1 of 2) 11/16/1963 Pneumococcal vaccine (65+ years) 09/25/2016 09/25/2015, 06/2003 (3 - PCV) Office Visit for Blood Pressure 07/08/2021 04/07/2021 Check / Re-check Depression Screening (Annual 08/22/2021 PHQ-2) Influenza Vaccine (#1) 2022 DTaP,Tdap,and Td Vaccines (2 - Td 07/16/2030 07/16/2020, , or Tdap) 01/30/2003 Mammogram Discontinued 03/22/2016 (Performed elsewhere), 10/08/2015, 10/02/2012, Additional history exists Fall Risk Screen (Annual) Completed 12/14/2021 Medical Devices Implanted Type Area Cinder Pitman Device Shelf Model / Identifier Expiration Serial / Date Lot Breast Other Breast Right: Other Breast Description: Marker Conversions - Default Historical Implant Device Mesh or Patch Abdomen Implanted: 11/04/2016 (Quantity not on file) Description: Body Location - Abdominal. Device Status Text - MeshPatch. Lens Nasir 17.0d X 6.0mm - [id number] Ocular Lens Other/Leg acy - See NasirTidal Implanted: Qty: 1 on 10/23/2014 Implant Description Description: Device Cinder Pitman - Nasir [employer]. Body Location - Other. Left. Device Status Text - [id number]. Lens Tcn [id number] Bicnvx +17.5d - [id number] - [id number] Ocular Lens Right: Eye [employer] 11/02/2024 [id number] / Implanted: Qty: 1 on 03/04/2021 by Arron Patricio M.D. at [facility] (Previously [facility]) [id number] / Procedures Procedure Name Priority Date/Time Associated Diagnosis Comme nts OPHTHALMOLOGY IMAGE Routine 05/11/2022 12:20 Resu lts for EXAM AM CDT this procedure are in the results section. OPHTHALMOLOGY IMAGE Routine 05/11/2022 12:15 Resu lts for EXAM AM CDT this procedure are in the results section. OPHTHALMOLOGY IMAGE Routine 05/11/2022 12:00 Resu lts for EXAM AM CDT this procedure are in the results section. IMMUNOGLOBULIN FREE Routine 04/07/2022 8:15 Waldenstrom's Resu [...] this procedure are in the results section. CBC WITH Routine 04/07/2022 8:15 Wal[facility]strom's Results for DIFFERENTIAL, B AM CDT Macroglobulinemia (HCC) t his procedure are in the results section. from Last 3 Months Results Eyes Slit Lamp-Ophthalmology Image Exam (05/11/2022 12:20 AM CDT)Only the most recent of3 resultswithin the time period is included. Specimen (Source) Anatomical Location Collection Method / [...] Organization Address City/State/ZIP Code [facility]) Immunoglobulin Free Light Chains (04/07/2022 8:15 AM CDT) Analysis Performed At Patho logist Time Signature [place] Free 2.58 (H) 0.3300 - 04/08/2022 [facility] Light Chain, S 1.94 mg/dL 10:03 AM CDT Lambda Free 0.4300 (L) 0.5700 - 04/08/2022 [facility] Light Chain, S 2.63 mg/dL 10:18 AM CDT [place]/Lambda 6.00 (H) 0.2600 - 04/08/2022 [facility] FLC Ratio 1.65 10:18 AM CDT Specimen Anatomical Collection Method Collection Time Receive d Time (Source) Location / / Volume Laterality Blood (Blood, 04/07/2022 8:15 AM 04/08/20 22 6:23 Venous) CDT AM CDT Resulting Agency Comment Mailed In Specimen Arturo Ricks M.D. LAB BLOOD ADD-ON Performing Organization Address City/State/ZIP Code Phon e Number [facility] [address] [place], [place] [address] SUPPORT CENTER [facility] [place] [address] Laboratory Medicine and Pathology [address] [place] (ABNORMAL) CBC with Differential, Blood (04/07/2022 8:15 AM CDT) Patholo gist Method Time Signature Hemoglobin 13.0 11.6 [...] Resulting Agency Comment Mailed In Specimen Arturo Rikcs M.D. LAB BLOOD ADD-ON Performing Organization Address City/State/ZIP Code Phon e Number [facility] - [address] [place], [place] [address] [facility] [place] [address] [facility] [address] (ABNORMAL) Electrophoresis, Protein (04/07/2022 8:15 AM CDT) [facility] Method Time Signature Total Protein, 6.7 6.3 [...] LAB BLOOD ADD-ON Performing Organization Address City/[facility]/ZIP Code Phon e Number [facility] [address] [place], [place] [address] SUPPORT CENTER [facility] [place] [address] Laboratory Medicine and Pathology [address] [place] LD (Lactate Dehydrogenase) (04/07/2022 8:15 [...] City/State/ZIP Code Phon e Number [facility] - [address] [place], [place] [address] [facility] [place] [address] [facility] [address] (ABNORMAL) Comprehensive [...] 04/07/2022 DTL Black/ mL/min/BSA 8:03 PM CDT Nigerien Comment: ----ADDITIONAL INFORMATION---- Estimated GFR calculated using [...] City/State/ZIP Code Phon e Number [facility] - [address] [place], [place] [address] [facility] [place] [address] [facility] [address] from Last 3 Months Insurance Payer Benefit Plan Subscriber ID Effective Phone Address Typ e / Group Dates MEDICARE MEDICARE A [id number] 2009-Pres [address] [place] [address] BLUE CROSS BCBS [employer] [place] [id number] 2016-Pres [phone] PO SHRUTHI X Cost Share BLUE SHIELD BLUE COST ent [phone] [place] [address] Care Teams Limo Driver Relationship Specialty Start Date End Date Elsewhere, Pcp PCP - General Family Medicine 03/04/21
--- OUTSIDE RECORDS SUMMARY | 2022-07-02 09:15 | XMS_ITS | Encounter Summary ---
:1945 Author Organization [facility] Address [address] [place] [address] Care Team Providers Name Role Phone Elsewhere, [...] or relatives? How often do you attend scientology or More than 4 times per year 04/09/2022 moravian services? Do you belong to any clubs or Yes 04/09/2022 organizations such as scientology groups, unions, fraternal or athletic groups, or [...] place to sleep or slept in a jail (including now)? Education Answer Date Recorded What [...] Associated Comments Diagnosis OPHTHALMOLOGY IMAGE Routine 05/11/2022 12:15 Resu lts for this EXAM AM CDT procedure are i n the results section. documented in this encounter Results Eyes External-Ophthalmology Image Exam (05/11/2022 12:15 AM CDT) Specimen (Source) Anatomical Location Collection Method / Collectio n Time Received Time / Laterality Volume Narrative IIMS - 05/11/2022 3:19 PM CDT This order has been created [...] on filedocumented in this encounter Care Teams Ski Edge Painter Relationship Specialty Start Date End Date Elsewhere, Pcp PCP - General Family Medicine 03/04/21 documented as of this encounter
--- OUTSIDE RECORDS SUMMARY | 2022-07-02 09:15 | XMS_ITS | Encounter Summary ---
:1945 Author Organization [facility] Address [address] [place] [address] Care Team Providers Name Role Phone Elsewhere, Pcp Primary Care Provider Unavailable Encounter Details Date Type Department Care Team Description 09/28/2021 Clinical Communication Division of Kevin Ricks , Hematology in Arturo Mckeon M.D. [place], [place] [address] [facility] [address] [place] [phone] Social History Tobacco Use Types Packs/Day Years [...] More than 4 times per year 04/09/2022 synagogue services? Do you belong to any clubs [...] place to sleep or slept in a long term (including now)? Education Answer Date Recorded What [...] on filedocumented in this encounter Care Teams Water Main Inspector Relationship Specialty Start Date End Date Elsewhere, Pcp PCP - General Family Medicine 03/04/21 documented as of this encounter
--- OUTSIDE RECORDS SUMMARY | 2022-07-02 09:15 | XMS_ITS | Encounter Summary ---
:1945 Author Organization [facility] Address [address] [place] [address] Care Team Providers Name Role Phone Elsewhere, Pcp Primary Care Provider Unavailable Encounter Details Date Type Department Care Team Description 12/14/2021 Ancillary Department of Arron Patricio Lymphoma Eye (HCC) Procedure Ophthalmology ar Knox M.D. [place], [place] [address] [place] [address] [address] [place] [id number] [phone] Social History Tobacco Use Types Packs/Day Years [...] More than 4 times per year 04/09/2022 sabianism services? Do you belong to any clubs [...] place to sleep or slept in a retirement (including now)? Education Answer Date Recorded What [...] Procedure Name Priority Date/Time Associated Comments Diagnosis SLIT LAMP PHOTOGRAPHY Routine 12/14/2021 4:03 PM Lymphoma Eye (HCC) Results for this - OU - BOTH EYES CDT procedure a re in the results section. documented in this encounter Results Slit Lamp Photography - [...] encounter Visit Diagnoses Diagnosis Lymphoma Eye (HCC) documented in this encounter Care Teams Glass Cutting Machine Operator Relationship Specialty Start Date End Date Elsewhere, Pcp PCP - General Family Medicine 03/04/21 documented as of this encounter
--- OUTSIDE RECORDS SUMMARY | 2022-07-02 09:16 | XMS_ITS | Encounter Summary ---
:1945 Author Organization [facility] Address [address] [place] [address] Care Team Providers Name Role Phone Unavailable Primary Care Provider Unavailable Encounter Details Date Type Department Care Team Description 11/10/2020 Clinical Communication Department of Arron Patricio Ophthalmology ar Knox M.D. [place], [place] [address] [facility] [address] [place] [phone] Social History Tobacco Use Types Packs/Day Years [...] or relatives? How often do you attend oriental orthodox or More than 4 times per year 04/09/2022 episcopalian services? Do you belong to any clubs or Yes 04/09/2022 organizations such as oriental orthodox groups, unions, fraternal or athletic groups, or [...] or the highest technical, or vocational p karthikram degree you have received? Sex Assigned at Date Recorded Female 03/05/2018 7:34 PM CDT documented as of this encounter Miscellaneous Notes Telephone Encounter - Sergio Nix - 11/10/2020 10:49 AM CDT What is the purpose of the call?: Standard Appointment Process Standard Appointment Process Have you tested positive for COVID-19 in the last 20 days OR do you have a pending COVID-19 test because you had symptoms?: No, neither apply What region is the appointment being requested?: More than 20 days [facility], [facility] or [facility] In the past 14 days have you had close contact* with a person who has a LABORATORY CONFIRMED case ofCOVID-19?: No exposure noted. Follow local process (End Screening) Testing Recommendation Endpoint Is testing recommended? : Not recommended to test Plan: Endpoint recommendation: Followed regional [facility] *Reminder if sending patient for testing in [facility] or [facility], route encounter to the correct testing pool. documented in this encounter Plan of Treatment Not on filedocumented as of this encounter Visit Diagnoses Not on filedocumented in this encounter
--- OUTSIDE RECORDS SUMMARY | 2022-07-02 09:16 | XMS_ITS | Encounter Summary ---
:1945 Author Organization [facility] Address [address] [place] [address] Care Team Providers Name Role Phone Elsewhere, Pcp Primary Care Provider Unavailable Reason for Visit Reason Comments Intake Assessment Encounter Details Date Type Department Care Team Description 04/06/2021 Clinical Division of Kevin Intake Assessme nt Communication Hematology in Arturo Ricks [place], M.D. [place] [address] [address] [facility] [address] [place] [phone] Social History Tobacco Use Types Packs/Day Years [...] or relatives? How often do you attend shinto or More than 4 times per year 04/09/2022 jain services? Do you belong to any clubs or Yes 04/09/2022 organizations such as shinto groups, unions, fraternal or athletic groups, or [...] this encounter Miscellaneous Notes Telephone Encounter - Lyndsay Ramirez - 04/06/2021 1:05 PM CDT 04/06 campus active M&A done 03/31 documented in this encounter Plan of Treatment Not on filedocumented as of this encounter Visit Diagnoses Not on filedocumented in this encounter Care Teams Floater Operator Relationship Specialty Start Date End Date Elsewhere, Pcp PCP - General Family Medicine 03/04/21 documented as of this encounter
--- OUTSIDE RECORDS SUMMARY | 2022-07-02 09:16 | XMS_ITS | Encounter Summary ---
:1945 Author Organization [facility] Address [address] [place] [address] Care Team Providers Name Role Phone Unavailable Primary Care Provider Unavailable Reason for Visit Reason Comments Lab and urine results Encounter Details Date Type Department Care Team Description 10/03/2020 Clinical Division of [place] Lab and urine Communication Hematology in Arturo Ricks, caleb Castillo M.D. [place] [address] [facility] [address] [place] [phone] Social History Tobacco Use Types Packs/Day Years [...] or relatives? How often do you attend pentecostalism or More than 4 times per year 04/09/2022 religion services? Do you belong to any clubs or Yes 04/09/2022 organizations such as pentecostalism groups, unions, fraternal or athletic groups, or [...] place to sleep or slept in a [facility] (including now)? Education Answer Date Recorded What is the highest level of school Associate degree: gerardo talbert, 04/02/2020 you have completed or the highest technical, or vocational p nasir degree you have received? Sex Assigned at Date Recorded Female 03/05/2018 7:34 PM CDT documented as of this encounter Miscellaneous Notes Telephone Encounter - Stephanie Pierre - 10/03/2020 11:21 AM CST Name of caller: Sarah Meyer Reason for call: Patient requests that lab and urine results from 09/09/2020 be faxed to [facility] - Attention: Dr. Brijesh Ken at [phone]. Patient also requests a paper copy sent to her home address. Call back number is [phone] Is it okay to leave a voicemail on answering machine? yes Thank you, Stephanie Hematology [facility] DORA ITORY MANAGER documented in this encounter Plan of Treatment Not on filedocumented as of this encounter Visit Diagnoses Not on filedocumented in this encounter
--- OUTSIDE RECORDS SUMMARY | 2022-07-02 09:16 | XMS_ITS | Encounter Summary ---
:1945 Author Organization [facility] Address [address] [place] [address] Care Team Providers Name Role Phone Elsewhere, Pcp Primary Care Provider Unavailable Encounter Details Date Type Department Care Team Description 04/14/2021 Orders Only Division of Daisy L[facility]pez's Hematology in A, R.N. Macroglobulinemia (HCC) [place], [place] [address] [place] [address] (Primary Dx) [address] [place] [phone] Social History Tobacco Use Types Packs/Day Years [...] or relatives? How often do you attend temple or More than 4 times per year 04/09/2022 buddhism services? Do you belong to any clubs or Yes 04/09/2022 organizations such as temple groups, unions, fraternal or athletic groups, or [...] filedocumented as of this encounter Results (ABNORMAL) Monoclonal Gammopathy Monitoring (09/28/2021 10:25 AM LABEL MACHINE OPERATOR) [facility] Method Time Signature Therapeutic No 09/30/2021 SDSC Antibody 6:07 AM LABEL MACHINE OPERATOR Administered? Total Protein, S 7.1 6.3 - 7.9 09/30/2021 SDSC g/dL 8:37 AM LABEL MACHINE OPERATOR Albumin 3.8 3.4 - 4.7 09/30/2021 SDSC g/dL 3:00 PM LABEL MACHINE OPERATOR Alpha-1 Globulin 0.3 0.1 - 0.3 09/30/2021 SDSC g/dL 3:00 PM LABEL MACHINE OPERATOR Alpha-2 Globulin 1.0 0.6 - 1.0 09/30/2021 SDSC g/dL 3:00 PM LABEL MACHINE OPERATOR Beta-Globulin 0.9 0.7 - 1.2 09/30/2021 SDSC g/dL 3:00 PM LABEL MACHINE OPERATOR Gamma-Globulin 1.1 0.6 - 1.6 09/30/2021 SDSC g/dL 3:00 PM LABEL MACHINE OPERATOR A/G Ratio 1.12 09/30/2021 SDSC 3:00 PM LABEL MACHINE OPERATOR M spike 0.9 (H) g/dL 09/30/2021 SDSC 3:00 PM LABEL MACHINE OPERATOR Impression M-spike in 09/30/2021 SDSC gamma 3:00 PM LABEL MACHINE OPERATOR fraction. Specimen Anatomical Collection Method Collection Time Receive d Time (Source) Location / / Volume Laterality Blood (Blood, 09/28/2021 10:25 09/30/2021 6:07 Venous) AM LABEL MACHINE OPERATOR AM LABEL MACHINE OPERATOR Resulting Agency Comment Mailed In Specimen Arturo Ricks M.D. LAB BLOOD ADD-ON Performing Organization Address City/[facility]/ZIP Code Phon e Number [address] [place] [id number] 05 [facility] [place] [address] Laboratory Medicine and Pathology [address] [place] [address] Dr. NATH (ABNORMAL) Immunoglobulins (IgG, IgA, and IgM) (09/28/2021 10:25 AM LABEL MACHINE OPERATOR) Patholo gist Method Time Signature Immunoglobulin A 30 (L) 61 - 356 09/29/2021 SDSC (IgA), S mg/dL 5:38 PM LABEL MACHINE OPERATOR Immunoglobulin M 1230 (H) 37 - 286 09/29/2021 SDSC (IgM), S mg/dL 6:07 PM LABEL MACHINE OPERATOR Immunoglobulin G 301 (L) 767 - 09/29/2021 SDSC (IgG), S 1590 5:39 PM LABEL MACHINE OPERATOR mg/dL Specimen Anatomical Collection Method Collection Time Receive d Time (Source) Location / / Volume Laterality Blood (Blood, 09/28/2021 10:25 09/29/2021 4:22 Venous) AM LABEL MACHINE OPERATOR PM LABEL MACHINE OPERATOR Resulting Agency Comment Mailed In Specimen Arturo Ricks M.D. LAB BLOOD ADD-ON Performing Organization Address City/[facility] Code Phon e Number [address] [place] [phone] 05 SU[address] [facility] [address] Laboratory Medicine and Pathology [address] [place] [address] Dr. NATH (ABNORMAL) Immunoglobulin Free Light Chains (09/28/2021 10:25 AM LABEL MACHINE OPERATOR) Analysis Performed At Patho logist Time Signature [place] Free 2.60 (H) 0.3300 - 09/29/2021 SDSC Light Chain, S 1.94 mg/dL 5:18 PM LABEL MACHINE OPERATOR Lambda Free 0.4200 (L) 0.5700 - 09/29/2021 SDSC Light Chain, S 2.63 mg/dL 5:34 PM LABEL MACHINE OPERATOR [place]/Lambda 6.19 (H) 0.2600 - 09/29/2021 SDSC FLC Ratio 1.65 5:34 PM LABEL MACHINE OPERATOR Specimen Anatomical Collection Method Collection Time Receive d Time (Source) Location / / Volume Laterality Blood (Blood, 09/28/2021 10:25 09/29/2021 4:22 Venous) AM LABEL MACHINE OPERATOR PM LABEL MACHINE OPERATOR Resulting Agency Comment Mailed In Specimen Arturo Ricks M.D. LAB BLOOD ADD-ON Performing Organization Address City/[facility]/ZIP Code Phon e Number [facility] [address] [place], [place] [address] [address] [facility] [place] [address] Laboratory Medicine and Pathology [address] NATH LD (Lactate Dehydrogenase) (09/28/2021 10:25 AM LABEL MACHINE OPERATOR) Analysis Performed At Patho logist Time Signature Lactate 168 122 - 222 09/29/2021 DTL Dehydrogenase U/L 2:36 PM LABEL MACHINE OPERATOR (LD), S Specimen Anatomical Collection Method Collection Time Receive d Time (Source) Location / / Volume Laterality Blood (Blood, 09/28/2021 10:25 09/29/2021 Venous) AM LABEL MACHINE OPERATOR 12:43 PM LABEL MACHINE OPERATOR Resulting Agency Comment Mailed In Specimen Arturo Ricks M.D. LAB BLOOD NON ADD-ON Performing Organization Address City/[facility]/ZIP Code Phon e Number [facility]IES - 200 [place], [place] [address] [facility] [place] [address] Laboratories-[facility] 200 [facility] (ABNORMAL) Comprehensive Metabolic Panel (09/28/2021 10:25 AM LABEL MACHINE OPERATOR) P athologist Signature Potassium, S 4.0 3.6 - 5.2 09/29/2021 DTL mmol/L 2:42 PM LABEL MACHINE OPERATOR Sodium, S 137 135 - 145 09/29/2021 DTL mmol/L 2:42 PM LABEL MACHINE OPERATOR Chloride, S 95 (L) 98 - 107 09/29/2021 DTL mmol/L 2:42 PM LABEL MACHINE OPERATOR Bicarbonate, S 27 22 - 29 09/29/2021 DTL mmol/L 2:42 PM LABEL MACHINE OPERATOR Anion Gap 15 7 - 15 09/29/2021 DTL 2:42 PM LABEL MACHINE OPERATOR BUN (Blood Urea 14 6 - 21 09/29/2021 DTL Nitrogen), S mg/dL 2:42 PM LABEL MACHINE OPERATOR Creatinine 0.71 0.59 - 09/29/2021 DTL 1.04 mg/dL 2:42 PM LABEL MACHINE OPERATOR eGFR-Non 83 >=60 09/29/2021 DTL Black/ mL/min/BSA 2:42 PM LABEL MACHINE OPERATOR [place] Comment: ----ADDITIONAL INFORMATION---- Estimated GFR calculated using the 2009 CKD_EPI creatinine equation. eGFR-Black/ >90 >=60 mL/min/BSA 2021 2:42 PM LABEL MACHINE OPERATOR DTL Comment: ----ADDITIONAL INFORMATION---- Estimated GFR calculated using the 2009 CKD_EPI creatinine equation. Calcium, Total, S 9.5 8.8 - 10.2 mg/dL 09/29/2021 2:42 PM LABEL MACHINE OPERATOR DTL Glucose, S 99 70 - 140 mg/dL 09/29/2021 2:42 PM LABEL MACHINE OPERATOR D TL Protein, Total, S 7.2 6.3 - 7.9 g/dL 09/29/2021 2:42 P M LABEL MACHINE OPERATOR DTL Albumin, S 4.6 3.5 - 5.0 g/dL 09/29/2021 2:42 PM LABEL MACHINE OPERATOR D TL Aspartate Aminotransferase (AST), 23 8 - 43 U/L 09/29 2:42 PM LABEL MACHINE OPERATOR DTL S Alkaline Phosphatase, S 80 35 - 104 U/L 09/29/2021 2: 42 PM LABEL MACHINE OPERATOR DTL Alanine Aminotransferase (ALT), S 24 7 - 45 U/L 09/29 2:42 PM LABEL MACHINE OPERATOR DTL Bilirubin, Total, S 0.8 <=1.2 mg/dL 09/29/2021 2:42 PM LABEL MACHINE OPERATOR DTL Specimen Anatomical Collection Method Collection Time Receive d Time (Source) Location / / Volume Laterality Blood (Blood, 09/28/2021 10:25 09/29/2021 Venous) AM LABEL MACHINE OPERATOR 12:43 PM LABEL MACHINE OPERATOR Resulting Agency Comment Mailed In Specimen Arturo Ricks M.D. LAB BLOOD ADD-ON Performing Organization Address City/State/ZIP Code Phon e Number [facility]IES - [address] [place], [place] [address] [facility] [place] [address] Laboratories-[facility] [address] (ABNORMAL) CBC with Differential, Blood (09/28/2021 10:25 AM LABEL MACHINE OPERATOR) [facility] gist Method Time Signature Hemoglobin 14.5 11.6 - 09/29/2021 DTL 15.0 g/dL 2:15 PM LABEL MACHINE OPERATOR Hematocrit 42.1 35.5 - 09/29/2021 DTL 44.9 % 2:15 PM LABEL MACHINE OPERATOR Erythrocytes 4.79 3.92 - 09/29/2021 DTL 5.13 2:15 PM LABEL MACHINE OPERATOR x10(12)/L MCV 87.9 78.2 - 09/29/2021 DTL 97.9 fL 2:15 PM LABEL MACHINE OPERATOR RBC Distrib Width 13.2 12.2 - 09/29/2021 DTL 16.1 % 2:15 PM LABEL MACHINE OPERATOR Platelet Count 269 157 - 371 09/29/2021 DTL x10(9)/L 2:15 PM LABEL MACHINE OPERATOR Leukocytes 3.4 3.4 - 9.6 09/29/2021 DTL x10(9)/L 2:15 PM LABEL MACHINE OPERATOR Neutrophils 2.26 1.56 - 09/29/2021 DTL 6.45 2:15 PM LABEL MACHINE OPERATOR x10(9)/L Lymphocytes 0.59 (L) 0.95 - 09/29/2021 DTL 3.07 2:15 PM LABEL MACHINE OPERATOR x10(9)/L Monocytes 0.38 0.26 - 09/29/2021 DTL 0.81 2:15 PM LABEL MACHINE OPERATOR x10(9)/L Eosinophils 0.12 0.03 - 09/29/2021 DTL 0.48 2:15 PM LABEL MACHINE OPERATOR x10(9)/L Basophils <0.03 0.01 - 09/29/2021 DTL 0.08 2:15 PM LABEL MACHINE OPERATOR x10(9)/L Specimen Anatomical Collection Method Collection Time Receive d Time (Source) Location / / Volume Laterality Blood (Blood, 09/28/2021 10:25 09/29/2021 Venous) AM LABEL MACHINE OPERATOR 12:43 PM LABEL MACHINE OPERATOR Resulting Agency Comment Mailed In Specimen Arturo Ricks M.D. LAB BLOOD ADD-ON Performing Organization Address City/State/ZIP Code Phon e Number [facility] - [address] [place], [place] [address] [facility] [place] [address] Laboratories-[facility] [address] documented in this encounter Visit Diagnoses Diagnosis Waldenstrom's Macroglobulinemia (HCC) - Primary documented in this encounter Care Teams Adjustment Clerk Relationship Specialty Start Date End Date Elsewhere, Pcp PCP - General Family Medicine 03/04/21 documented as of this encounter
--- OUTSIDE RECORDS SUMMARY | 2022-07-02 09:16 | XMS_ITS | Encounter Summary ---
:1945 Author Organization [facility] Address [address] [place] [address] Care Team Providers Name Role Phone Elsewhere, Pcp Primary Care Provider Unavailable Reason for Visit Reason Comments External Lab Entry Encounter Details Date Type Department Care Team Description 02/19/2021 Clinical Department of Arron Patricio External Lab Entry Communication Ophthalmology ar Knox M.D. [place], [place] [address] [place] [address] [address] [place] [phone] Social History Tobacco Use Types Packs/Day Years [...] or relatives? How often do you attend latter day or More than 4 times per year 04/09/2022 catholic services? Do you belong to any clubs or Yes 04/09/2022 organizations such as latter day groups, unions, fraternal or athletic groups, or [...] place to sleep or slept in a custodial (including now)? Education Answer Date Recorded What [...] Name Priority Date/Time Associated Diagnosis Comme nts LABEXT SARS Routine 01/28/2021 4:15 PM Results f or this CORONAVIRUS-2 CDT procedure are in (COVID-19) RNA the results section. documented in this encounter Results (ABNORMAL) EXT SARS Coronavirus-2 (COVID-19) RNA (01/28/2021 4:15 PM CDT) [facility] gist Method Time Signature EXT Detected (A) [facility] SARS-CoV-2 [facility] RNA Indetermi LABORATORY vicente, Invalid, Negative, Not Detected, Undetecte d, Other (specify in comment) Specimen (Source) Anatomical Collection Method Collection Time Re ceived Time Location / / Volume Laterality Swab 01/28/2021 4:15 PM CDT Narrative This result has an attachment that is no t available. Arron Patricio M.D. LAB MICROBIOLOGY - GENERAL O RDERABLES Performing Organization Address City/State/ZIP Code Phon e Number [facility] [address] [place] [id number] documented in this encounter Visit Diagnoses Not on filedocumented in this encounter Care Teams Digital Marketing Coordinator Relationship Specialty Start Date End Date Elsewhere, Pcp PCP - General Family Medicine 03/04/21 documented as of this encounter
--- OUTSIDE RECORDS SUMMARY | 2022-07-02 09:16 | XMS_ITS | Encounter Summary ---
:1945 Author Organization [facility] Address [address] [place] [address] Care Team Providers Name Role Phone Elsewhere, Pcp Primary Care Provider Unavailable Reason for Visit Appointment Request (Routine) - Closed Specialty Diagnoses / Procedures Referred By Contact Refer red To Contact Ophthalmology Diagnoses Eye Examination Normal Arron Patricio M.D. [address] [place] [address] Referral ID Status Reason Start Date Expiration Date Visits Requ ested Visits Authorized [id number] Closed 07/01/2021 07/01/2022 1 1 Encounter Details Date Type Department Care Team Description 07/03/2021 Comprehensive Visit Department of Wing Lana Peter, Refract ion Disorder Ophthalmology in O.D. (Primary Dx) [place], [place] [address] [facility] [address] [place] [phone] Social History Tobacco Use Types Packs/Day Years [...] or relatives? How often do you attend nondenominational or More than 4 times per year 04/09/2022 judaism services? Do you belong to any clubs or Yes 04/09/2022 organizations such as nondenominational groups, unions, fraternal or athletic groups, or [...] place to sleep or slept in a usp (including now)? Education Answer Date Recorded What is the highest level of school Associate degree: gerardo talbert, 04/02/2020 you have completed or the highest technical, or vocational p nasir degree you have received? Sex Assigned at Date Recorded Female 03/05/2018 7:34 PM CDT documented as of this encounter Progress Notes Wing Lana Peter O.D. - 07/03/2021 10:40 AM CST Sarah Meyer was seen today for Rx check. #1 Refraction Disorder No change to spectacle prescription. Emphasized she needs to wear her glasses in order to see clearly. Her symptoms are only when the glasses are off. If her left eye feels dry, she can use over the counter artificial tears. 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 s/p chemo, ended February 2017 Plan: Continue care w/ Dr. Patricio should she develop new concerns with her left eye. O SCRIBE OPERATOR documented in this encounter Plan of Treatment Not on filedocumented as of this encounter Visit Diagnoses Diagnosis Refraction Disorder - Primary documented in this encounter Care Teams Shelter Case Manager Relationship Specialty Start Date End Date Elsewhere, Pcp PCP - General Family Medicine 03/04/21 documented as of this encounter
--- OUTSIDE RECORDS SUMMARY | 2022-07-02 09:16 | XMS_ITS | Encounter Summary ---
:1945 Author Organization [facility] Address [address] [place] [address] Care Team Providers Name Role Phone Unavailable Primary Care Provider Unavailable Reason for Visit Reason Comments Surgery questions Encounter Details Date Type Department Care Team Description 02/24/2021 Clinical Department of Arron Patricio Surgery [facility] Communication Ophthalmology ar Knox M.D. [place], [place] [address] [place] [address] [place] [phone] Social History Tobacco Use Types Packs/Day Years [...] or relatives? How often do you attend religious or More than 4 times per year 04/09/2022 anabaptism services? Do you belong to any clubs or Yes 04/09/2022 organizations such as religious groups, unions, fraternal or athletic groups, or [...] place to sleep or slept in a senior living (including now)? Education Answer Date Recorded What is the highest level of school Associate degree: gerardo talbert, 04/02/2020 you have completed or the highest technical, or vocational p nasir degree you have received? Sex Assigned at Date Recorded Female 03/05/2018 7:34 PM CDT documented as of this encounter Miscellaneous Notes Telephone Encounter - Pam Rodriguez - 02/24/2021 2:29 PM CDT Relayed the information from Dr. Patricio to the patient. She understands and will stop the baby aspirin 1 week before the surgery. Telephone Encounter - Arron Patricio M.D. - 02/24/2021 2:11 PM CDT If it is safe for her to stop the aspirin, that would be great. Otherwise will not be a major issue if still on aspirin or fish oil. Telephone Encounter - Tierney Wyatt - 02/24/2021 9:04 AM CDT Patient checking regarding if she should stop taking her baby aspirin and fish oil prior to surgery?If so, how many days ahead. She is feeling better from her Covid in January, mostly just symptoms of tired more than used to be. She will be meeting with her GP on to see what he says regarding if still move forward with eye surgery. She has Waldenstrom's. Her sodium had been very low, however that's back to more normal now. documented in this encounter Plan of Treatment Not on filedocumented as of this encounter Visit Diagnoses Not on filedocumented in this encounter
--- OUTSIDE RECORDS SUMMARY | 2022-07-02 09:16 | XMS_ITS | Encounter Summary ---
:1945 Author Organization [facility] Address [address] [place] [address] Care Team Providers Name Role Phone Elsewhere, Pcp Primary Care Provider Unavailable Reason for Visit Reason Comments appt/insurance coverage Encounter Details Date Type Department Care Team Description 04/23/2021 Clinical Department of Arron Patricio appt/insuranc e Communication Ophthalmology ar Knox M.D. coverage [place], [place] [address] [facility] [address] [place] [phone] Social History Tobacco Use Types Packs/Day Years [...] More than 4 times per year 04/09/2022 lutheran services? Do you belong to any clubs [...] this encounter Miscellaneous Notes Telephone Encounter - Arron Patricio M.D. - 04/23/2021 11:35 AM CDT I'm not clear on which exam this refers to? If this is about a postop visit, then it would be a no charge because of the global period. If this is about the preop visit, then let me know and I will look to see what I did. If this is about the refraction, then the department has asked us to bill for postop refractions. Let me know what exactly I need to address, thanks. Telephone Encounter - Tierney Cho - 04/23/2021 11:12 AM CDT Pt insurance saying no exam, they are paying for refraction however nothing showing pt had an exam. Is there something that can be changed so that she is covered for both? 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 Insurance and Business office are stating they do not have correct info and/or wording on the appt. from ophthalmology. Try home number first: [phone] Cell 2nd: [phone] documented in this encounter Plan of Treatment Not on filedocumented as of this encounter Visit Diagnoses Not on filedocumented in this encounter Care Teams Burlap Worker Relationship Specialty Start Date End Date Elsewhere, Pcp PCP - General Family Medicine 03/04/21 documented as of this encounter
--- OUTSIDE RECORDS SUMMARY | 2022-07-02 09:16 | XMS_ITS | Encounter Summary ---
:1945 Author Organization [facility] Address [address] [place] [address] Care Team Providers Name Role Phone Unavailable Primary Care Provider Unavailable Reason for Referral Outpatient (Routine) - Closed Specialty Diagnoses / Procedures Referred By Contact Refer red To Contact Ophthalmology Arron Patricio M. D. [address] [phone] Referral ID Status Reason Start Date Expiration Date Visits Requ ested Visits Authorized [id number] Closed 01/01/2021 01/01/2022 1 1 Scheduling Instructions 3-4 weeks after surgery Outpatient (Routine) - Closed Specialty Diagnoses / Procedures Referred By Contact Refer red To Contact Ophthalmology Arron Patricio M. D. [address] [address] Referral ID Status Reason Start Date Expiration Date Visits Requ ested Visits Authorized [id number] Closed 01/01/2021 01/01/2022 1 1 Reason for Visit Reason Comments Blurred Vision Appointment Request (Routine) - Closed Specialty Diagnoses / Procedures Referred By Contact Refer red To Contact Ophthalmology Diagnoses Cataract Referral ID Status Reason Start Date Expiration Date Visits Requ ested Visits Authorized [id number] Closed 11/10/2020 11/10/2021 1 1 Encounter Details Date Type Department Care Team Description 01/01/2021 Office Visit Department of Arron Patricio Combined Form s Age Related Cataract Right Eye (Primary Dx); Ophthalmology in [place] Contact With And (Suspected) Exposure To COVID-19; [place], [place] [address] [facility] Encounter For Screening For Other Viral Diseases (COVID-19); [address] [place], [place] Lymphoma Eye (HCC); [place] [phone] Intraocular Lens Implant Status Post [phone] Social History Tobacco Use Types Packs/Day Years [...] encounter Progress Notes Arron Patricio M.D. - 01/01/2021 3:00 PM CDT #1 Cataract, right eye Visually significant. Discussed the options. Plan: Cataract surgery right eye; see below. Cataract surgery was discussed in detail with the patient (or legal bottling equipment sales representative and others present during the discussion), including the risks, goals, alternatives, advanced directives, and potential complications. Patient verbalizes understanding and wishes to proceed. Will aim to match the refractive error of the fellow eye. Will proceed under local anesthesia. 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 s/p recent chemo, ended February 2017 Today looks stable, possible subtle thickening of subconj tissue. Plan: Continue to observe. Continue follow-up with heme. #3 Waldenstrom macroglobulinemia #4 Pseudophakia, left eye Stable documented in this encounter Plan of Treatment Scheduled Referrals Name Type Priority Associated Order Schedule Diagnoses Ophthalmology Post Op Outpatient Referral Routine Expected: (clinic) 03/05/2021, Expires: 01/02/2024 Ophthalmology Post Op Outpatient Referral Routine Expected: (clinic) 03/30/2021 (Approximate), Expires: 01/02/2024 documented as of this encounter Visit Diagnoses Diagnosis Combined Forms Age Related Cataract Righ t Eye - Primary Contact With And (Suspected) Exposure To COVID-19 Encounter For Screening For Other Viral Diseases (COVID-19) Lymphoma Eye (HCC) Intraocular Lens Implant Status Post documented in this encounter
--- OUTSIDE RECORDS SUMMARY | 2022-07-02 09:16 | XMS_ITS | Encounter Summary ---
:[address] [facility] Address [address] [place] [address] Care Team Providers Name Role Phone Elsewhere, Pcp Primary Care Provider Unavailable Encounter Details Date Type Department Care Team Description 03/04/2021 Hospital Encounter Outpatient [facility] [address] [facility] [address] [place] [phone] (Wo rk) Social History Tobacco Use Types Packs/Day Years [...] or relatives? How often do you attend rastafari or More than 4 times per year 04/09/2022 christian services? Do you belong to any clubs or Yes 04/09/2022 organizations such as rastafari groups, unions, fraternal or athletic groups, or [...] place to sleep or slept in a care home (including now)? Education Answer Date Recorded What is the highest level of school Associate degree: gerardo talbert, 04/02/2020 you have completed or the highest technical, or vocational p nasir degree you have received? Sex Assigned at Date Recorded Female 03/05/2018 7:34 PM CDT documented as of this encounter Last Filed Vital Signs Vital Sign Reading Time Taken Comments Blood Pressure 148/83 03/04/2021 9:38 AM CDT Pulse 74 03/04/2021 9:40 AM CDT Temperature 36.8 ??C (98.2 ??F) 03/04/2021 8:20 AM CDT Respiratory Rate 16 03/04/2021 9:40 AM CDT Oxygen Saturation 96% 03/04/2021 9:40 AM CDT Inhaled Oxygen Concentration - - Weight 66 kg (145 lb 8.1 oz) 03/04/2021 8:20 AM CDT Height - - Body Mass Index 24.07 04/04/2020 2:03 PM CDT documented in this encounter Discharge Instructions Discharge InstructionsAnay Elias R.N. - 03/04/2021 8:22 AM CDT Images from the original note were not included. Care after Cataract Surgery: Instructions for the first day and night of surgery After IV sedation After you have been sedated, it is common to have lapses of memory, slowed reaction time and impaired judgment. For the rest of the day after being sedated: ?? Rest. ?? Do not drive or operate motorized vehicles or equipment. ?? Do not return to work or school. ?? Do not take on responsibility for children or anyone who depends on your care. ?? Do not use exercise equipment or take part in rough play or sports. ?? Do not drink alcoholic beverages. ?? You can resume your usual diet as you feel able. Activities & Restrictions ?? Keep eye shield on until your next appointment. ?? You may bathe or shower; avoid getting water in the eye. ?? You may bend over and lift things that do not require straining. ?? Do not rub your operated eye. ?? Do not use eyedrops in operated eye until your next appointment. Normal Symptoms ?? Itching and mild irritation. ?? Foreign body sensation. ?? Tearing sensation. Warning Signs (call the numbers below if you experience these) ?? Severe eye pain (uncommon). ?? Headache sensation around the operated eye, especially if associated with nausea or vomiting (uncommon). For discomfort ?? Significant pain after cataract surgery is uncommon. ?? You may take acetaminophen (e.g. Tylenol) for any discomfort/irritation. Contact Information If you have immediate or urgent concerns, please contact Dr. Arron Patricio, Tue 8-5 at [phone] [facility] Hotel Staff Member, (after business hours, and ask for the building construction supervisor eye doctor) Please bring all of your eyedrops with you to your next appointment. documented in this encounter Medications at Time of Discharge Medication Sig Dispensed Refills Start Date End Date CALCIUM ORAL Take 1 capsule by mouth 0 12/07/2016 daily. MICROCRYSTALLINE HYDROXYAPATITE Calcium supplement cholecalciferol Take 1 tablet by mouth 0 07/12/20 13 (VITAMIN D3) 125 mcg daily. (5,000 Unit) tablet omega-3 fatty Take 2 capsules by 0 12/07/2016 acids/fish oil (OMEGA mouth daily. 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) [employer] by [employer] TURMERIC ROOT EXTRACT Take 1 tablet by mouth 0 ORAL as needed. zinc acetate (GALZIN) Take 50 mg by mouth 2 0 25 mg (zinc) capsule (two) times a week. ascorbic acid, vitamin Take 1,000 mg by mouth 0 03/31/2021 C, (ascorbic acid with daily. jayne hips) 500 mg tablet ascorbic acid, vitamin Take 1,000 mg by mouth. 0 03/31/2021 C, (Vitamin C) powder azithromycin See Admin Instructions. 0 12/11/2020 12/14/2021 (ZITHROMAX) 250 mg tablet B complex-vitamins Take 1 tablet by mouth 0 03/31/2021 (BALANCE B-50) tablet daily. DIETARY SUPPLEMENT Take by mouth daily. 0 017 03/31/2021 ORAL [employer] - Traditional; 1 Tablespoon by mouth daily DIETARY SUPPLEMENT Take by mouth as 0 04/26/2017 03/31/2021 ORAL needed. GI Revive- take 1 Tablespoon by mouth daily MAGNESIUM ORAL Take 0.5-1 tablets by 0 01/24/2017 03/31/2021 mouth daily as needed. 150 mg tablets, helps adrenal symptoms moxifloxacin (VIGAMOX) 1 drop to operated eye 3 mL 1 0 01/01/2021 12/14/2021 0.5 % ophthalmic 4 times per day for 1 solution week, starting the day before surgery multivitamin tablet Take 1 tablet by mouth. 0 04/201004/16/2022 nitrofurantoin Take 100 mg by mouth 2 0 1 12/14/2021 monohydrate (MACROBID) (two) times a day. 100 mg capsule prednisoLONE acetate After surgery, 1 drop 10 mL 1 12/2012/14/2021 (PRED FORTE) 1 % to operated eye 4x/day ophthalmic suspension and then as directed by your physician UNABLE TO FIND A&D capsule 1 daily Med 0 03/31/2021 Name: UNABLE TO FIND as needed. Adrena Calm Cream 0 03/31/2021 Med Name: UNABLE TO FIND adrenal resilience 0 UNABLE TO FIND Teramin - 1 tsp of powder 0 03/31/2021 Blend of minerals documented as of this encounter OR Notes Op Note - Arron Patricio M.D. 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 Complications None Description of Procedure A final pause occurred just before the start of the procedure, during which the entire procedure team actively confirmed the correct patient, procedure, site, special equipment, and special requirements. The eye was prepared and draped in the usual sterile ophthalmic fashion, and a lid speculum was placed. A paracentesis port was placed clockwise to the planned main incision, and viscoelastic was used to fill the anterior chamber. A temporal clear corneal incision was created using a 2.75-mm keratome. A continuous-tear circular capsulorrhexis was created. The lens was hydrodissected and hydrodelineated using balanced salt solution. The nucleus was removed by using phacoemulsification, and the remaining cortex was removed with irrigation and aspiration. The capsular bag was reinflated with viscoelastic, and the intraocular lens was inserted into the capsular bag and the haptics rotated into position. The intraocular lens power calculation (optical biometry) was reviewed, and the best lens power was selected to produce the desired postoperative refractive state. The viscoelastic was removed using irrigation and aspiration. The anterior chamber was reinflated with balanced salt solution, and thewound was checked to be watertight at the end of the procedure. Intracameral cefuroxime 1 mg in 0.1 mL was administered. Polymyxin B/neomycin/dexamethasone ointment was applied followed by a patch and Salomon shield. The patient tolerated the procedure well. Arron Patricio M.D. documented in this encounter Plan of Treatment Not on filedocumented as of this encounter Procedures Procedure Name Priority Date/Time Associated Comments Diagnosis PHACOEMULSIFICATION CATARACT 03/04/2021 8:56 AM Combin ed Forms Age WITH INTRAOCULAR LENS CDT Related Cataract IMPLANTATION Right Eye documented in this encounter Visit Diagnoses Diagnosis Combined Forms Age Related Cataract Righ t Eye - Primary documented in this encounter Admitting Diagnoses Diagnosis Combined Forms Age Related Cataract Righ t Eye documented in this encounter Administered Medications Inactive Administered Medications - up to 3 most recent administrations Medication Order MAR Action Action Date Dose Rate Site cyclopentolate-phenylephrine Given 03/04/2021 8:05 AM CDT 1 appl ication in hypromellose 0.125-1.25 % ophthalmic solution 1 application (DILATING DROPS) 1 application, ophthalmic, Once, On Tue03/04/21 at 0800, For 1 dose, Pre-Op, Apply over cornea in operative eye, towards superior fornix and towards inferior fornix. Apply at least 30 minutes prior to case. fentaNYL injection 25 mcg (SUBLIMAZE) Given 03/04/2021 9:09 AM CDT 25 mcg 25 mcg, intravenous, Every 2 min PRN, moderate pain or score 4-6 of 10, severe pain or score 7-10 of 10, sedation, Starting on Tue03/04/21 at 0829, Intra-Op, Administer over 1 minute immediately prior to the procedure. May repeat every 2 minutes to a maximum of 200 mcg, until pain score of 3 or less, or until the patient meets the pain comfort goal. Do not give if respiratory rate is less than 8 breaths/minute lactated ringers New Bag 03/04/2021 8:56 AM CDT 20 mL/hr 20 mL/hr 20 mL/hr, intravenous, Continuous, Starting on Tue03/04/21 at 0845, Intra-Op midazolam (PF) injection 0.5 mg (VERSED) Given 03/04/2021 9:09 AM CDT 1 mg 0.5 mg, intravenous, Every 2 min PRN, sedation, Starting on Tue03/04/21 at 0829, Intra-Op, If RASS greater than -3, give additional dose(s) of 0.5 mg IV every 2 minutes for a maximum of 5 mg. Do not give if respiratory rate is less than 8 breaths/minute. sodium chloride 0.9 % injection 10 mL 10 mL, intravenous, As needed, line care , Starting on Tue03/04/21 at 0754, Pre-Op, Peripheral Intravenous Catheter and Rapid Infusion Cat heter, prior to blood sampling, post blood transfusion or post blood samplin g sodium chloride 0.9 % injection 3 mL 3 mL, intravenous, As needed, line care, Starting on Tue03/04/21 at 0754, Pre-Op, Prior to and following infusion and betw een multiple consecutive infusions: sodium chloride 0.9 % injection sodium chloride 0.9 % injection 3 mL 3 mL, intravenous, Every 12 hours scheduled, First dos e on Tue03/04/21 at 0900, Pre-Op, Peripheral Intravenous Catheter and Rapid Infu bud Catheter, when no infusion to maintain patency documented in this encounter Active and Recently Administered Medications Times are shown in CDT. Scheduled Medication Order 03/02/2021 03/03/2021 03/04/2021 acetaminophen tablet 1,000 mg (TYLENOL) 0857 (Not Given - Provider: Anay Elias R.N. - Reason: Patient/family refused) 1,000 mg, oral, Once, On Tue03/04/21 at 0845, For 1 dose, Pre-Op cyclopentolate-phenylephrine in hypromel lose 0.125-1.25 % ophthalmic solution 1 application (DILATING DROPS) (COMPLETED) 804 (Given - Provider: Anay Elias R.N.) 1 application, ophthalmic, Once, On Tue03/04/21 at 0800, For 1 dose, Pre-Op, Apply over cornea in operative eye, towards superior fornix and towards inferior fornix. Apply at least 30 minutes prior to case. sodium chloride 0.9 % injection 3 mL 0900 (Due) 3 mL, intravenous, Every 12 hours schedu led, First dose on Tue03/04/21 at 0900, Pre-Op, Peripheral Intravenous Catheter and Rapid Infusion Catheter, when no infusion to maintain patency Continuous Medication Order 03/02/2021 03/03/2021 03/04/2021 lactated ringers 0856 (New Bag - Provider: Anay Elias R.N.)0943 (Stopped - Provider: Anay Elias R.N.) 20 mL/hr, intravenous, Continuous, Starting on Tue03/04/21 at 08 45, Intra-Op PRN Medication Order 03/02/2021 03/03/2021 03/04/2021 balanced salt solution ophthalmic irrigation (BSS) (CANCELED) 0915 (Given - Provider: Arron Patricio M.D.) As needed, Starting on Tue03/04/21 at 0915, Intra-Op cefUROXime 1 mg/0.1 mL intraocular injection 1 mg (ZINACEF) (COM PLETED) 0927 (Given - Provider: Arron Patricio M.D.) 1 mg, intraocular, Once in surgery, OR u se only, Starting on Tue03/04/21 at 0855, For 1 dose, Intra-Op, INTRAOCULAR Use Only. Amount Dispensed Exceeds Dose. 1 mL vial., Drug Monitoring Program: Pharmaci st to adjust medication dosing based on indication and drug clearance factors. EPINEPHrine (PF) 0.1 mg in balanced salt solution 500 mL ophthalmic irrigation (COMPLETED) 918 (Given - Provid er: Arron Patricio M.D.) 500 mL, intraocular irrigation, Once in surgery, OR use only, Starting on Tue03/04/21 at 0855, For 1 dose, Intra-Op fentaNYL injection 25 mcg (SUBLIMAZE) 908 (Given - Provider: Atul Arambula RBre) 25 mcg, intravenous, Every 2 min PRN, mo derate pain or score 4-6 of 10, severe pain or score 7-10 of 10, sedation, Starting on Tue03/04/21 at 0829, Intra-Op, Administer over 1 minute immediately prior t o the procedure. May repeat every 2 mary angel to a maximum of 200 mcg, until pain score of 3 or less, or until the patient meets the pain comfort goal. Do not give if respiratory rate is less than 8 breaths/minute flumazeniL injection 0.2 mg (ROMAZICON) 0.2 mg, intravenous, Once as needed, rev ersal, Starting on Tue03/04/21 at 0829, For 1 dose, Intra-Op, Administer once if patient has a RASS score of -4, -5 and has a respiratory rate less than 8 breaths/minute. dpkupggch-hliseulxznm-kdqqyedsopnug faisal n recombinant (Ophthalmic Block Solution #2) 9.5 mg-2.4 mg-7.5 Units/mL 12 mL (COMPLETED) 09 (Given - Provider: Arron Patricio M.D.) 12 mL, ophthalmic, Once in surgery, OR u se only, Starting on Tue03/04/21 at 0855, For 1 dose, Intra-Op midazolam (PF) injection 0.5 mg (VERSED) 0.5 mg, intravenous, Once as needed, sed ation, Starting on Tue03/04/21 at 0829, For 1 dose, Intra-Op midazolam (PF) injection 0.5 mg (VERSED) 09 (Given - Provider: Atul Arambula R.N.) 0.5 mg, intravenous, Every 2 min PRN, se dation, Starting on Tue03/04/21 at 0829, Intra-Op, If RASS greater than -3, give additional dose(s) of 0.5 mg IV every 2 minutes for a maximum of 5 mg. Do not giv e if respiratory rate is less than 8 breaths/minute. naloxone injection 0.2 mg (NARCAN) 0.2 mg, intravenous, Once as needed, res piratory depression, Starting on Tue03/04/21 at 0829, For 1 dose, Intra-Op, Administer once if patient has a RASS score of -4, -5 and has a respiratory rate less than 8 breaths/minute. neomycin-polymyxin B-dexameth ophthalmic ointment (MAXITROL) (CA NCELED) 0929 (Given - Provider: Arrno Patricio M.D.) As needed, Starting on Tue03/04/21 at 0929, Intra-Op ondansetron (PF) injection 4 mg (ZOFRAN) 4 mg, intravenous, Once as needed, nause a, vomiting, Starting on Tue03/04/21 at 0829, For 1 dose, Intra-Op povidone-iodine 10 % external solution (BETADINE) (CANCELED) 0913 (Given - Provider: Holley Guzman R.N.) As needed, Starting on Tue03/04/21 at 0913, Intra-Op povidone-iodine 5 % ophthalmic solution (BETADINE) (CANCELED) 09 (Given - Provider: Arron Patricio M.D.) As needed, Starting on Tue03/04/21 at 0908, Intra-Op proparacaine 0.5 % ophthalmic solution (ALCAINE) (CANCELED) 09 (Given - Provider: Arron Patricio M.D.) As needed, Starting on Tue03/04/21 at 0908, Intra-Op sodium chloride 0.9 % injection 10 mL 10 mL, intravenous, As needed, line care , Starting on Tue03/04/21 at 0754, Pre- Op, Peripheral Intravenous Catheter and Rapid Infusion Catheter, prior to blood sampling, post blood transfusion or post blood sampling sodium chloride 0.9 % injection 3 mL 3 mL, intravenous, As needed, line care, Starting on Tue03/04/21 at 0754, Pre- Op, Prior to and following infusion and between multiple consecutive infusions: sodium chloride 0.9 % injection documented in this encounter Care Teams Rope Laying Machine Operator Relationship Specialty Start Date End Date Elsewhere, Pcp PCP - General Family Medicine 03/04/21 documented as of this encounter
--- OUTSIDE RECORDS SUMMARY | 2022-07-02 09:16 | XMS_ITS | Encounter Summary ---
:1945 Author Organization [facility] Address [address] [place] [address] Care Team Providers Name Role Phone Unavailable Primary Care Provider Unavailable Reason for Visit Reason Comments Pre-Surgical COVID-19 screening Encounter Details Date Type Department Care Team Description 02/26/2021 Clinical Department of Arron Patricio Pre-Surgical Communication Ophthalmology ar Knox M.D. COVID-19 screening [place], [place] [address] [place] [address] [address] [place] [phone] Social History Tobacco Use Types Packs/Day Years [...] or relatives? How often do you attend jainism or More than 4 times per year 04/09/2022 baptist services? Do you belong to any clubs or Yes 04/09/2022 organizations such as jainism groups, unions, fraternal or athletic groups, or [...] Notes Telephone Encounter - Pam Rodriguez - 02/26/2021 2:20 PM CDT Patient is now 30-90 days out from the positive test result and is asymptomatic. Therefore, okay to proceed with surgery without completing another PCR swab test per protocol. Instructions were given for the following tests prior to surgery. A. Self-Quarantine -Pt was informed of self-quarantine at home if local/regional or in their hotel. -Pt was informed of temperature checks -Pt Understands and will contact the Membership Sales Advisor if there are any changes or new symptoms (symptoms that are listed above). documented in this encounter Plan of Treatment Not on filedocumented as of this encounter Visit Diagnoses Not on filedocumented in this encounter
--- OUTSIDE RECORDS SUMMARY | 2022-07-02 09:16 | XMS_ITS | Encounter Summary ---
:1945 Author Organization [facility] Address [address] [place] [address] Care Team Providers Name Role Phone Elsewhere, Pcp Primary Care Provider Unavailable Encounter Details Date Type Department Care Team Description 03/04/2021 Surgery Outpatient Procedure Arron Patricio V., [facility] [place] INTRAOCULAR LENS [place] [address] [facility] IMPLANTATION. [address] [place] [phone] Social History Tobacco Use Types Packs/Day Years [...] or relatives? How often do you attend anabaptism or More than 4 times per year 04/09/2022 adventism services? Do you belong to any clubs or Yes 04/09/2022 organizations such as anabaptism groups, unions, fraternal or athletic groups, or [...] urgent concerns, please contact Dr. Arron Patricio, Tue- Tue 8-5 at [phone] [facility] Senior Product Engineer, (after business hours, and ask for the cash applications analyst eye doctor) Please bring all of your [...] daily. 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) [employer] by [employer] TURMERIC ROOT EXTRACT Take 1 tablet by [...] Take 100 mg by mouth 2 0 12/14/2021 monohydrate (MACROBID) (two) times a day. [...] Related Cataract Righ t Eye - Primary Combined Forms Age Related Cataract Righ t Eye documented in this encounter Admitting Diagnoses Diagnosis Combined Forms Age Related Cataract Righ t Eye documented in this encounter Administered Medications Inactive Administered Medications - up to 3 most recent administrations Medication Order MAR Action Action Date Dose Rate Site balanced salt solution Given 03/04/2021 9:15 AM CDT 15 mL Right Eye ophthalmic irrigation (BSS) As needed, Starting on Tue03/04/21 at 0915, Intra-Op cefUROXime 1 mg/0.1 mL intraocular Given 03/04/2021 9:27 AM CDT 1 mg Right Eye injection 1 mg (ZINACEF) 1 mg, intraocular, Once in surgery, OR use only, Starting on Tue03/04/21 at 0855, For 1 dose, Intra-Op, INTRAOCULAR Use Only. Amount Dispensed Exceeds Dose. 1 mL vial., Drug Monitoring Program: Pharmacist to adjust medication dosing based on indication and drug clearance factors. cyclopentolate-phenylephrine in Given 03/04/2021 8:05 AM 1 appli cation hypromellose 0.125-1.25 % ophthalmic CDT solution 1 application (DILATING DROPS) 1 application, ophthalmic, Once, On Tue03/04/21 at 0800, For 1 dose, Pre-Op, Apply over cornea in operative eye, towards superior fornix and towards inferior fornix. Apply at least 30 minutes prior to case. EPINEPHrine (PF) 0.1 mg in balanced Given 03/04/2021 9:19 AM CDT 500 mL Right Eye salt solution 500 mL ophthalmic irrigation 500 mL, intraocular irrigation, Once in surgery, OR use only, Starting on Tue03/04/21 at 0855, For 1 dose, Intra-Op fentaNYL injection 25 mcg (SUBLIMAZE) Given 03/04/2021 [...] Continuous, Starting on Tue03/04/21 at 0845, Intra-Op acbcjbqsy-nbrffeahibh-cbnzesmklqnas human Given 03/04/2021 9:11 4.6 mL Right Eye recombinant (Ophthalmic Block Solution #2) AM CDT 9.5 mg-2.4 mg-7.5 Units/mL 12 mL 12 mL, ophthalmic, Once in surgery, OR use only, Starting [...] respiratory rate is less than 8 breaths/minute. neomycin-polymyxin B-dexameth Given 03/04/2021 9:29 AM CDT 1 sam lication Right Eye ophthalmic ointment (MAXITROL) As needed, Starting on Tue03/04/21 at 0929, Intra-Op povidone-iodine 10 % external solution Given 03/04/2021 9:13 AM CDT 5 mL Right Eye (BETADINE) As needed, Starting on Tue03/04/21 at 0913, Intra-Op povidone-iodine 5 % ophthalmic Given 03/04/2021 9:[address] Right Eye solution (BETADINE) As needed, Starting on Tue03/04/21 at 0908, Intra-Op proparacaine 0.5 % ophthalmic Given 03/04/2021 9:08 AM CDT 2 kyle ps Right Eye solution (ALCAINE) As needed, Starting on Tue03/04/21 at 0908, [...] 03/03/2021 03/04/2021 acetaminophen tablet 1,000 mg (TYLENOL) 0828 (Not Given - Provider: Anay Elias R.N. [...] (SUBLIMAZE) 908 (Given - Provider: Atul Arambula R.N.) 25 mcg, intravenous, Every 2 min PRN, [...] a respiratory rate less than 8 breaths/minute. etrmeevfl-nflngldizhj-cqzrbtomdffsj faisal n recombinant (Ophthalmic Block Solution #2) [...] (MAXITROL) (CA NCELED) 0929 (Given - Provider: Arron Patricio M.D.) As [...] povidone-iodine 5 % ophthalmic solution (BETADINE) (CANCELED) 0908 (Given - Provider: Arron Patricio M.D.) As needed, Starting on Tue03/04/21 at 0908, Intra-Op proparacaine 0.5 % ophthalmic solution (ALCAINE) (CANCELED) 0908 (Given - Provider: Arron Patricio M.D.) As [...] injection documented in this encounter Care Teams Deburr Technician Relationship Specialty Start Date End Date Elsewhere, Pcp PCP - General Family Medicine 03/04/21 documented as of this encounter
--- OUTSIDE RECORDS SUMMARY | 2022-07-02 09:16 | XMS_ITS | Encounter Summary ---
:1945 Author Organization [facility] Address [address] [place] [address] Care Team Providers Name Role Phone Elsewhere, Pcp Primary Care Provider Unavailable Reason for Visit Outpatient (Routine) - Closed Specialty Diagnoses / Procedures Referred By Contact Refer red To Contact Hematology Oncology [facility] medicineJudy Zavala M.D. [address] [place] [phone] Referral ID Status Reason Start Date Expiration Date Visits Requ ested Visits Authorized [id number] Closed 10/02/2020 10/02/2021 1 1 Encounter Details Date Type Department Care Team Description 04/07/2021 [facility] Arturo Ricks Macroglobu linechristi (HCC) Ana Castillo (Primary Dx) [address] [place] [phone] Social History Tobacco Use Types Packs/Day Years [...] or relatives? How often do you attend worship or More than 4 times per year 04/09/2022 voodoo services? Do you belong to any clubs or Yes 04/09/2022 organizations such as worship groups, unions, fraternal or athletic groups, or [...] ??F) 04/07/2021 10:32 AM CDT Respiratory Rate - - Oxygen Saturation - - Inhaled Oxygen Concentration - - Weight 66.5 kg (146 lb 9.7 oz) 04/07/2021 10:32 AM CDT Height 165.4 cm (5' 5.12) 04/07/2021 10:32 AM CDT Body Mass Index 24.31 04/07/2021 10:32 AM CDT documented in this encounter Progress Notes Arturo Aleman M.D. - 04/07/2021 10:30 AM CDT SUBJECTIVE REFERRING PROVIDER Arturo Aleman M.D. REASON FOR VISIT Waldentrom's macroglobulinemia HISTORY OF PRESENT ILLNESS Patient is a 75 y.o. woman with Waldentrom's macroglobulinemia whose hematological history may be summarized as follows: 1. 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 [id number]: Treated with rituximab, intermittently, totaling 10 different series. 3. November 14 to March 07, 2012: Treated with dexamethasone plus rituximab plus cyclophosphamide for 6 cycles. 4. November 08 to January 25, 2017: Treated with rituximab plus bendamustine for 3 cycles. 5. January 2017 to present: Observed without treatment, maintaining partial response. INTERVAL HISTORY Patient returns to the clinic for scheduled follow-up. Our last encounter was a phone visit on October 02, 2020. In January of this year she was diagnosed with COVID-19 but had only mild symptoms, did not require hospitalization. She has no residual symptoms from this infection. This month she had surgery for cataract. On interview today she reports no active symptoms or concerns. Denies constitutionalsymptoms such as fevers, chills, drenching night sweats, unintentional weight loss. REVIEW OF SYSTEMS All systems reviewed and negative except for HPI. OBJECTIVE Vitals: 04/07/21 1032 BP: 155/84 Patient Position: Sitting Pulse: 68 Temp: (!) 35.6 ??C Height: 165.4 cm Weight: 66.5 kg TempSrc: Tympanic Body surface area is 1.75 meters squared. PHYSICAL EXAM General: Accompanied by . No acute distress. ECOG performance statis is 0. Eyes: Examined and normal. ENT: No oral lesions or thrush. Lymph: No palpable lymphadenopathy on the neck, supraclavicular, infraclavicular, axillary, epitrochlear regions. Heart: Regular rate and rhythm, S1 and S2 presents, no murmurs or gallops. Lungs: Symmetric expansion, no crackles, rales, rhonchi or wheezing. Abdomen: Soft, not tender to palpation, no peritoneal signs. No palpable masses or organomegaly. Spine: No tenderness to palpation or percussion of the entire spine. Joints: Examined and normal. Extremities: No clubbing, cyanosis, or edema. Neuro: Grossly nonfocal. Vascular access: No indwelling catheter. Skin: No rash on limited examination. DIAGNOSTICS Labs from today reviewed. Monoclonal protein study and immunoglobulins are still pending. Otherwise CBCs within normal limits except for stable chronic lymphopenia. Blood chemistry is within normal limits as well. ASSESSMENT / PLAN #1 Waldentrom's macroglobulinemia She continues to do well with no hematological manifestations of her disease. Special protein studies are still pending however. At this time she is maintaining a good response from her previous therapy and there is no indication for treatment at this time. Will continue to monitor with the next touchpoint in 6 months. She will do labs locally and send sent to [facility] as a mail in. I will reviewthose results with her in a video visit. Follow-up: Local labs in 6 months followed by a p video visit. Education We discussed the diagnosis and treatment plan in detail. The patient expressed understanding of the content. No apparent learning barriers were identified; learning preferences include listening. I personally spent over half of a total 30 minutes face to face with the patient in counseling and discussion and/or coordination of care as described above. Signed by: Soraya Ricks M.D. 04/07/2021 2:33 PM CDT documented in this encounter Plan of Treatment Not on filedocumented as of this encounter Visit Diagnoses Diagnosis Waldenstrom's Macroglobulinemia (HCC) - Primary documented in this encounter Care Teams Bench Worker Binding Relationship Specialty Start Date End Date Elsewhere, Pcp PCP - General Family Medicine 03/04/21 documented as of this encounter
--- OUTSIDE RECORDS SUMMARY | 2022-07-02 09:16 | XMS_ITS | Encounter Summary ---
:1945 Author Organization [facility] Address [address] [place] [address] Care Team Providers Name Role Phone Unavailable Primary Care Provider Unavailable Encounter Details Date Type Department Care Team Description 02/19/2021 Nurse Triage Department of [facility] Jennifer Troy R.N. Medicine, [facility], in [address] [place], [place] [address] [place] [address] [place] [address] [phone] Social History Tobacco Use Types Packs/Day Years [...] or relatives? How often do you attend buddhism or More than 4 times per year 04/09/2022 pentecostal services? Do you belong to any clubs or Yes 04/09/2022 organizations such as buddhism groups, unions, fraternal or athletic groups, or [...] this encounter Miscellaneous Notes Telephone Encounter - Makenzie Troy - 02/19/2021 1:34 PM CDT Chief Complaint / Reason for Call Patient is a 75 y.o. female calling regarding upcoming cataract surgery . Assessment Concern: Surgery scheduled 03/04. Supposed to be covid swabbed presurgery on 03/01 . However, she had Covid 01/29 , was tested in [place]. She calls for further recommendations. Her call was warm transferred to Angie in Ophthalmology for further advice documented in this encounter Plan of Treatment Not on filedocumented as of this encounter Visit Diagnoses Not on filedocumented in this encounter
--- OUTSIDE RECORDS SUMMARY | 2022-07-02 09:16 | XMS_ITS | Encounter Summary ---
:1945 Author Organization [facility] Address [address] [place] [address] Care Team Providers Name Role Phone Elsewhere, Pcp Primary Care Provider Unavailable Reason for Visit Reason Comments Post-op Follow-up Outpatient (Routine) - Closed Specialty Diagnoses / Procedures Referred By Contact Refer red To Contact Ophthalmology Arron Patricio [facility]. [facility] [address] [place] [phone] Referral ID Status Reason Start Date Expiration Date Visits Requ ested Visits Authorized [id number] Closed 01/01/2021 01/01/2022 1 1 Encounter Details Date Type Department Care Team Description 03/05/2021 Office Visit Department of Arron Patricio Ophthalmology ar Knox M.D. Implant Status Post [place], [place] [address] [place] [address] (Primary Dx) [address] [place] [phone] Social History Tobacco Use Types Packs/Day Years [...] or relatives? How often do you attend yarsani or More than 4 times per year 04/09/2022 yazidi services? Do you belong to any clubs or Yes 04/09/2022 organizations such as yarsani groups, unions, fraternal or athletic groups, or [...] place to sleep or slept in a intermediate (including now)? Education Answer Date Recorded What is the highest level of school Associate degree: gerardo talbert, 04/02/2020 you have completed or the highest technical, or vocational p nasir degree you have received? Sex Assigned at Date Recorded Female 03/05/2018 7:34 PM CDT documented as of this encounter Progress Notes Arrno Patricio M.D. - 03/05/2021 10:30 AM CDT #1 s/p Cataract surgery with intraocular lens implant, right eye. Doing well. Topical antibiotic, 1 drop 4x/day for 1 week into operative eye. Prednisolone acetate 1% 4x/day, then taper by 1drop/day each week into operative eye as per written instructions. Wear shield at night and glasses during the day. Call if decreased vision, increased photophobia, pain, discharge or increased redness occurs. Follow-up in 3-4 weeks. #2 Subconjunctival lymphoma, left eye s/p incisional [...] as of this encounter Visit Diagnoses Diagnosis Intraocular Lens Implant Status Post - P rimary documented in this encounter Care Teams Grain Blender Relationship Specialty Start Date End Date Elsewhere, Pcp PCP - General Family Medicine 03/04/21 documented as of this encounter
--- OUTSIDE RECORDS SUMMARY | 2022-07-02 09:16 | XMS_ITS | Encounter Summary ---
:1945 Author Organization [facility] Address [address] [place] [address] Care Team Providers Name Role Phone Elsewhere, Pcp Primary Care Provider Unavailable Reason for Visit Reason Comments D3 level Encounter Details Date Type Department Care Team Description 09/14/2021 Clinical Communication Division of Kevin Ricks , D3 level Hematology in Arturo Mckeon M.D. [place], [place] [address] [place] [address] [address] [place] [phone] Social History Tobacco Use Types Packs/Day Years [...] or relatives? How often do you attend scientologist or More than 4 times per year 04/09/2022 advent services? Do you belong to any clubs or Yes 04/09/2022 organizations such as scientologist groups, unions, fraternal or athletic groups, or [...] this encounter Miscellaneous Notes Telephone Encounter - Daisy López RMarcelloN. - 09/14/2021 4:11 PM CST Sent a treatment letter to the [facility] to add to Mail out labs. FACTURED BUILDINGS SUPERVISOR Telephone Encounter - Mary Jo Michelle - 09/14/2021 1:20 PM CST Pt called and is wondering if you could order a D3 level with the blood tests that are coming up. Phone; [phone] FACTURED BUILDINGS SUPERVISOR documented in this encounter Plan of Treatment Not on filedocumented as of this encounter Visit Diagnoses Not on filedocumented in this encounter Care Teams Waiter/Waitress Buffet Relationship Specialty Start Date End Date Elsewhere, Pcp PCP - General Family Medicine 03/04/21 documented as of this encounter
--- OUTSIDE RECORDS SUMMARY | 2022-07-02 09:16 | XMS_ITS | Encounter Summary ---
:[address] [facility] Address [address] [place] [address] Care Team Providers Name Role Phone Elsewhere, Pcp Primary Care Provider Unavailable Encounter Details Date Type Department Care Team Description 09/07/2021 [facility] En[facility] Laboratory Arturo Ricks, Macroglobul inemia (HCC) Medicine and M.D. Pathology, [place] [address] [place] [address] in [facility] [address] [place] [phone] [place] [address] (Work) [place], [place] [phone] (Fax) [phone] Social History Tobacco Use Types Packs/Day Years [...] or relatives? How often do you attend orthodox or More than 4 times per year 04/09/2022 christian services? Do you belong to any clubs or Yes 04/09/2022 organizations such as orthodox groups, unions, fraternal or athletic groups, [...] the highest level of school Associate degree: braxtonmary talbert, 04/02/2020 you have completed or the [...] daily. 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) [employer] TURMERIC ROOT EXTRACT Take 1 tablet by mouth 0 ORAL as needed. vit A and D3 in cod daily. 0 liver oiL 1,250-135 unit capsule zinc acetate (GALZIN) Take 50 mg by mouth 2 0 25 mg (zinc) capsule (two) times a week. azithromycin See Admin Instructions. 0 12/11/2020 12/14/2021 (ZITHROMAX) 250 mg tablet calcium carbonate daily. 0 022 (OS-ERIC) 1,250 mg (500 mg calcium) tablet moxifloxacin (VIGAMOX) 1 drop to operated eye [...] and then as directed by your physician zinc sulfate (ZINCATE) Daily 0 220 (50 mg zinc) capsule documented as of this encounter Plan of Treatment Not on filedocumented as of this encounter Procedures Procedure Name Priority Date/Time Associated Diagnosis Comme nts MONOCLONAL GAMMOPATHY Routine 09/28/2021 10:25 Waldenstrom's R esults for MONITOR, S AM MACHINING TECHNICIAN Macroglobulinemia (HCC) this procedure are in the results section. IMMUNOGLOBULIN FREE Routine 09/28/2021 10:25 Waldenstrom's Res ults for LIGHT CHAINS, S AM MACHINING TECHNICIAN Macroglobulinemia (HCC) t his procedure are in the results section. CBC WITH DIFFERENTIAL, Routine 09/28/2021 10:25 Waldenstrom's Results for B AM MACHINING TECHNICIAN Macroglobulinemia (HCC) this procedure are in the results section. IMMUNOGLOBULINS (IGG, Routine 09/28/2021 10:25 Waldenstrom's R esults for IGA, AND IGM), S AM MACHINING TECHNICIAN Macroglobulinemia (HCC) this procedure are in the results section. LACTATE DEHYDROGENASE Routine 09/28/2021 10:25 Waldenstrom's R esults for (LD), S AM MACHINING TECHNICIAN Macroglobulinemia (HCC) this procedure are in the results section. COMPREHENSIVE Routine 09/28/2021 10:25 Waldenstrom's Results f or METABOLIC PANEL, S/P AM MACHINING TECHNICIAN Macroglobulinemia (H CC) this procedure are in the results section. documented in this encounter Results (ABNORMAL) Monoclonal Gammopathy Monitoring (09/28/2021 10:25 AM MACHINING TECHNICIAN) [facility] Method Time Signature Therapeutic No 09/30/2021 [facility] Antibody 6:07 AM MACHINING TECHNICIAN Administered? Total Protein, S 7.1 6.3 - 7.9 09/30/2021 [facility] g/dL 8:37 AM MACHINING TECHNICIAN Albumin 3.8 3.4 - 4.7 09/30/2021 [facility] g/dL 3:00 PM MACHINING TECHNICIAN Alpha-1 Globulin 0.3 0.1 - 0.3 09/30/2021 [facility] g/dL 3:00 PM MACHINING TECHNICIAN Alpha-2 Globulin 1.0 0.6 - 1.0 09/30/2021 [facility] g/dL 3:00 PM MACHINING TECHNICIAN Beta-Globulin 0.9 0.7 - 1.2 09/30/2021 [facility] g/dL 3:00 PM MACHINING TECHNICIAN Gamma-Globulin 1.1 0.6 - 1.6 09/30/2021 [facility] g/dL 3:00 PM MACHINING TECHNICIAN A/G Ratio 1.12 09/30/2021 [facility] 3:00 PM MACHINING TECHNICIAN M spike 0.9 (H) g/dL 09/30/2021 [facility] 3:00 PM MACHINING TECHNICIAN Impression M-spike in 09/30/2021 [facility] gamma 3:00 PM MACHINING TECHNICIAN fraction. Specimen Anatomical Collection Method Collection Time Receive d Time (Source) Location / / Volume Laterality Blood (Blood, 09/28/2021 10:25 09/30/2021 6:07 Venous) AM MACHINING TECHNICIAN AM MACHINING TECHNICIAN Resulting Agency Comment Mailed In Specimen Arturo Ricks M.D. LAB BLOOD ADD-ON Performing Organization Address City/State/ZIP Code Phon e Number [facility] [address] [place] [address] [address] [facility] [facility] [place] [address] Laboratory Medicine and Pathology [address] [place] (ABNORMAL) Immunoglobulins (IgG, IgA, and IgM) (09/28/2021 10:25 AM MACHINING TECHNICIAN) Patholo gist Method Time Signature Immunoglobulin A 30 (L) 61 - 356 09/29/2021 [facility] (IgA), S mg/dL 5:38 PM MACHINING TECHNICIAN Immunoglobulin M 1230 (H) 37 - 286 09/29/2021 [facility] (IgM), S mg/dL 6:07 PM MACHINING TECHNICIAN Immunoglobulin G 301 (L) 767 - 09/29/2021 [facility] (IgG), S 1590 5:39 PM MACHINING TECHNICIAN mg/dL Specimen Anatomical Collection Method Collection Time Receive d Time (Source) Location / / Volume Laterality Blood (Blood, 09/28/2021 10:25 09/29/2021 4:22 Venous) AM MACHINING TECHNICIAN PM MACHINING TECHNICIAN Resulting Agency Comment Mailed In Specimen Arturo Ricks M.D. LAB BLOOD ADD-ON Performing Organization Address City/State/ZIP Code Phon e Number [facility] [address] [place], [place] [address] [place] [address] Laboratory Medicine and Pathology [address] [place] [address] Dr. [place] (ABNORMAL) Immunoglobulin Free Light Chains (09/28/2021 10:25 AM MACHINING TECHNICIAN) Analysis Performed At Patho logist Time Signature Garnet Free 2.60 (H) 0.3300 - 09/29/2021 [facility] Light Chain, S 1.94 mg/dL 5:18 PM MACHINING TECHNICIAN Lambda Free 0.4200 (L) 0.5700 - 09/29/2021 [facility] Light Chain, S 2.63 mg/dL 5:34 PM MACHINING TECHNICIAN Garnet/Lambda 6.19 (H) 0.2600 - 09/29/2021 [facility] FLC Ratio 1.65 5:34 PM MACHINING TECHNICIAN Specimen Anatomical Collection Method Collection Time Receive d Time (Source) Location / / Volume Laterality Blood (Blood, 09/28/2021 10:25 09/29/2021 4:22 Venous) AM MACHINING TECHNICIAN PM MACHINING TECHNICIAN Resulting Agency Comment Mailed In Specimen Arturo Ricks M.D. LAB BLOOD ADD-ON Performing Organization Address City/[facility]/ZIP Code Phon e Number [place] [id number] [place] [address] [address] [facility] [place] [address] Laboratory Medicine and Pathology [address] [place] [address] Dr. NATH LD (Lactate Dehydrogenase) (09/28/2021 10:25 AM MACHINING TECHNICIAN) Analysis Performed At Path logis Time Signature Lactate 168 122 - 222 09/29/2021 DTL Dehydrogenase U/L 2:36 PM MACHINING TECHNICIAN (LD), S Specimen Anatomical Collection Method Collection Time Receive d Time (Source) Location / / Volume Laterality Blood (Blood, 09/28/2021 10:25 09/29/2021 Venous) AM MACHINING TECHNICIAN 12:43 PM MACHINING TECHNICIAN Resulting Agency Comment Mailed In Specimen Arturo Ricks M.D. LAB BLOOD NON ADD-ON Performing Organization Address City/State/ZIP Code Phon e Number [facility] - [address] [place], [place] [address] [facility] [place] [address] [facility] [address] [place] [address] (ABNORMAL) Comprehensive Metabolic Panel (09/28/2021 10:25 AM MACHINING TECHNICIAN) P athologist Signature Potassium, S 4.0 3.6 - 5.2 09/29/2021 DTL mmol/L 2:42 PM MACHINING TECHNICIAN Sodium, S 137 135 - 145 09/29/2021 DTL mmol/L 2:42 PM MACHINING TECHNICIAN Chloride, S 95 (L) 98 - 107 09/29/2021 DTL mmol/L 2:42 PM MACHINING TECHNICIAN Bicarbonate, S 27 22 - 29 09/29/2021 DTL mmol/L 2:42 PM MACHINING TECHNICIAN Anion Gap 15 7 - 15 09/29/2021 DTL 2:42 PM MACHINING TECHNICIAN BUN (Blood Urea 14 6 - 21 09/29/2021 DTL Nitrogen), S mg/dL 2:42 PM MACHINING TECHNICIAN Creatinine 0.71 0.59 - 09/29/2021 DTL 1.04 mg/dL 2:42 PM MACHINING TECHNICIAN eGFR-Non 83 >=60 09/29/2021 DTL Black/ mL/min/BSA 2:42 PM MACHINING TECHNICIAN Tongan Comment: ----ADDITIONAL INFORMATION---- Estimated GFR calculated using the 2009 CKD_EPI creatinine equation. eGFR-Black/ >90 >=60 mL/min/BSA 2021 2:42 PM MACHINING TECHNICIAN DTL Comment: ----ADDITIONAL INFORMATION---- Estimated GFR calculated using the 2009 CKD_EPI creatinine equation. Calcium, Total, S 9.5 8.8 - 10.2 mg/dL 09/29/2021 2:42 PM MACHINING TECHNICIAN DTL Glucose, S 99 70 - 140 mg/dL 09/29/2021 2:42 PM MACHINING TECHNICIAN D TL Protein, Total, S 7.2 6.3 - 7.9 g/dL 09/29/2021 2:42 P M MACHINING TECHNICIAN DTL Albumin, S 4.6 3.5 - 5.0 g/dL 09/29/2021 2:42 PM MACHINING TECHNICIAN D TL Aspartate Aminotransferase (AST), 23 8 - 43 U/L 09/29 2:42 PM MACHINING TECHNICIAN DTL S Alkaline Phosphatase, S 80 35 - 104 U/L 09/29/2021 2: 42 PM MACHINING TECHNICIAN DTL Alanine Aminotransferase (ALT), S 24 7 - 45 U/L 09/29 2:42 PM MACHINING TECHNICIAN DTL Bilirubin, Total, S 0.8 <=1.2 mg/dL 09/29/2021 2:42 PM MACHINING TECHNICIAN DTL Specimen Anatomical Collection Method Collection Time Receive d Time (Source) Location / / Volume Laterality Blood (Blood, 09/28/2021 10:25 09/29/2021 Venous) AM MACHINING TECHNICIAN 12:43 PM MACHINING TECHNICIAN Resulting Agency Comment Mailed In Specimen Arturo Ricks M.D. LAB BLOOD ADD-ON Performing Organization Address City/State/ZIP Code Phon e Number [facility] - [address] [place], [place] [address] [facility] [place] [place] [address] [facility] [address] [facility] (ABNORMAL) CBC with Differential, Blood (09/28/2021 10:25 AM MACHINING TECHNICIAN) [facility] gist Method Time Signature Hemoglobin 14.5 11.6 - 09/29/2021 DTL 15.0 g/dL 2:15 PM MACHINING TECHNICIAN Hematocrit 42.1 35.5 - 09/29/2021 DTL 44.9 % 2:15 PM MACHINING TECHNICIAN Erythrocytes 4.79 3.92 - 09/29/2021 DTL 5.13 2:15 PM MACHINING TECHNICIAN x10(12)/L MCV 87.9 78.2 - 09/29/2021 DTL 97.9 fL 2:15 PM MACHINING TECHNICIAN RBC Distrib Width 13.2 12.2 - 09/29/2021 DTL 16.1 % 2:15 PM MACHINING TECHNICIAN Platelet Count 269 157 - 371 09/29/2021 DTL x10(9)/L 2:15 PM MACHINING TECHNICIAN Leukocytes 3.4 3.4 - 9.6 09/29/2021 DTL x10(9)/L 2:15 PM MACHINING TECHNICIAN Neutrophils 2.26 1.56 - 09/29/2021 DTL 6.45 2:15 PM MACHINING TECHNICIAN x10(9)/L Lymphocytes 0.59 (L) 0.95 - 09/29/2021 DTL 3.07 2:15 PM MACHINING TECHNICIAN x10(9)/L Monocytes 0.38 0.26 - 09/29/2021 DTL 0.81 2:15 PM MACHINING TECHNICIAN x10(9)/L Eosinophils 0.12 0.03 - 09/29/2021 DTL 0.48 2:15 PM MACHINING TECHNICIAN x10(9)/L Basophils <0.03 0.01 - 09/29/2021 DTL 0.08 2:15 PM MACHINING TECHNICIAN x10(9)/L Specimen Anatomical Collection Method Collection Time Receive d Time (Source) Location / / Volume Laterality Blood (Blood, 09/28/2021 10:25 09/29/2021 Venous) AM MACHINING TECHNICIAN 12:43 PM MACHINING TECHNICIAN Resulting Agency Comment Mailed In Specimen Arturo Ricks M.D. LAB BLOOD ADD-ON Performing Organization Address City/State/ZIP Code Phon e Number [facility] - [address] [place], [place] [address] [facility] [place] [place] [address] [facility] [address] documented in this encounter Visit Diagnoses Diagnosis Waldenstrom's Macroglobulinemia (HCC) documented in this encounter Care Teams Plastics Technician Relationship Specialty Start Date End Date Elsewhere, Pcp PCP - General Family Medicine 03/04/21 documented as of this encounter
--- OUTSIDE RECORDS SUMMARY | 2022-07-02 09:16 | XMS_ITS | Encounter Summary ---
:1945 Author Organization [facility] Address [address] [place] [address] Care Team Providers Name Role Phone Elsewhere, Pcp Primary Care Provider Unavailable Encounter Details Date Type Department Care Team Description 04/07/2021 Hospital Department of [facility] Encounter Laboratory Arturo Ricks, Macroglobul inemia (HCC) Medicine and M.D. Pathology, [place] [address] [place] [address] in [facility] [address] [place] [phone] [place] [address] (Work) [place], [place] [phone] (Fax) [phone] Social History Tobacco Use Types Packs/Day Years [...] daily. 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 CBC NO CALL BACK, Routine 04/07/2021 8:04 [facility] Result s for REFLEX T/S AM CDT Macroglobulinemia (HCC) this procedure are in the results section. IMMUNOGLOBULIN FREE Routine 04/07/2021 8:04 [facility] Resu lts for LIGHT CHAINS, S AM CDT Macroglobulinemia (HCC) t his procedure are in the results section. IMMUNOGLOBULINS (IGG, Routine 04/07/2021 8:04 [facility] Re sults for IGA, AND IGM), S AM CDT Macroglobulinemia (HCC) this procedure are in the results section. ASPARTATE Routine 04/07/2021 8:04 [facility] Results for AMINOTRANSFERASE (AST), AM CDT Macroglobulinemia (HCC) this procedure S/P are in the results section. SODIUM, S/P Routine 04/07/2021 8:04 [facility] Results for AM CDT Macroglobulinemia (HCC) this procedure are in the results section. POTASSIUM, S/P Routine 04/07/2021 8:04 [facility] Results f or AM CDT Macroglobulinemia (HCC) this procedure are in the results section. ALKALINE PHOSPHATASE, Routine 04/07/2021 8:04 [facility] Re sults for S/P AM CDT Macroglobulinemia (HCC) this procedure are in the results section. CREATININE WITH EGFR, Routine 04/07/2021 8:04 [facility] Re sults for S/P AM CDT Macroglobulinemia (HCC) this procedure are in the results section. CALCIUM, TOT, S/P Routine 04/07/2021 8:04 [facility] Result s for AM CDT Macroglobulinemia (HCC) this procedure are in the results section. documented in this encounter Results (ABNORMAL) Immunoglobulins (IgG, IgA, and IgM) (04/07/2021 8:04 AM CDT) Patholo gist Method Time Signature Immunoglobulin A 29 (L) 61 - 356 04/07/2021 SDSC (IgA), S mg/dL 10:57 AM CDT Immunoglobulin M 1050 (H) 37 - 286 04/07/2021 SDSC (IgM), S mg/dL 11:26 AM CDT Immunoglobulin G 321 (L) 767 - 04/07/2021 SDS (IgG), S 1590 10:57 AM CDT mg/dL Specimen Anatomical Collection Method Collection Time Receive d Time (Source) Location / / Volume Laterality Blood (Blood, 04/07/2021 8:04 AM 04/07/20 Venous) CDT 10:21 AM CDT Arturo Ricks M.D. LAB BLOOD ADD-ON Performing Organization Address City/[facility]/ZIP [facility] Phon e Number [facility] [address] [place], [place] [address] [facility] [place] [address] Laboratory Medicine and Pathology [address] [place] Sodium (04/07/2021 8:04 AM CDT) athologist Signature Sodium, S 137 135 - 145 04/07/2021 9:29 DTL mmol/L AM CDT Specimen Anatomical Collection Method Collection Time Receive d Time (Source) Location / / Volume Laterality Blood (Blood, 04/07/2021 8:04 AM 04/07/20 21 8:58 Venous) CDT AM CDT Authorizing Provider Result Sammi Ricks M.D. LAB BLOOD ADD-ON Performing Organization Address City/[facility]/ZIP [facility] Phon e Number [facility] - [address] [place], [place] [address] [facility] [place] [place] [address] [facility] [address] Potassium (04/07/2021 8:04 AM CDT) P athologist Signature Potassium, S 4.0 3.6 - 5.2 04/07/2021 DTL mmol/L 9:29 AM CDT Specimen Anatomical Collection Method Collection Time Receive d Time (Source) Location / / Volume Laterality Blood (Blood, 04/07/2021 8:04 AM 04/07/20 8:58 Venous) CDT AM CDT Arturo Ricks M.D. LAB BLOOD ADD-ON Performing Organization Address City/State/ZIP Code Phon e Number [facility] - [address] [place], [place] [address] [facility] [place] [address] [facility] [address] (ABNORMAL) Monoclonal Gammopathy Monitoring (04/07/2021 8:04 AM CDT) Patholo gist Method Time Signature Therapeutic Unspecified 04/07/2021 SDSC Antibody 10:25 AM Administered? CDT Total Protein, 6.3 6.3 - 7.9 04/07/2021 SDSC S g/dL 10:40 AM CDT Albumin 3.4 3.4 - 4.7 04/07/2021 SDSC g/dL 4:53 PM CDT Alpha-1 0.3 0.1 - 0.3 04/07/2021 SDSC Globulin g/dL 4:53 PM CDT Alpha-2 0.9 0.6 - 1.0 04/07/2021 SDSC Globulin g/dL 4:53 PM CDT Beta-Globulin 0.8 0.7 - 1.2 04/07/2021 SDSC g/dL 4:53 PM CDT Gamma-Globulin 1.0 0.6 - 1.6 04/07/2021 SDSC g/dL 4:53 PM CDT A/G Ratio 1.20 04/07/2021 SDSC 4:53 PM CDT M spike 0.7 (H) g/dL 04/07/2021 SDSC 4:53 PM CDT Impression M-spike in 04/07/2021 SDSC gamma fraction. 4:53 PM CDT Specimen Anatomical Collection Method Collection Time Receive d Time (Source) Location / / Volume Laterality Blood (Blood, 04/07/2021 8:04 AM 04/07/20 Venous) CDT 10:21 AM CDT Arturo Ricks M.D. LAB BLOOD ADD-ON Performing Organization Address City/[facility]/ZIP Code Phon e Number [facility] [address] [place] [address] [facility] [place] [address] Laboratory Medicine and Pathology [address] [place] [address] Dr. NATH (ABNORMAL) Immunoglobulin Free Light Chains (04/07/2021 8:04 AM CDT) Analysis Performed At Patho logist Time Signature [place] Free 2.17 (H) 0.3300 - 04/07/2021 SDSC Light Chain, S 1.94 mg/dL 11:18 AM CDT Lambda Free 0.4200 (L) 0.5700 - 04/07/2021 SDSC Light Chain, S 2.63 mg/dL 11:33 AM CDT [place]/Lambda 5.17 (H) 0.2600 - 04/07/2021 SDS FLC Ratio 1.65 11:33 AM CDT Specimen Anatomical Collection Method Collection Time Receive d Time (Source) Location / / Volume Laterality Blood (Blood, 04/07/2021 8:04 AM 04/07/20 Venous) CDT 10:52 AM CDT Arturo Ricks M.D. LAB BLOOD ADD-ON Performing Organization Address City/[facility] Code Phon e Number [facility] [address] [place] [address] [facility] [place] [place] [address] Laboratory Medicine and Pathology [address] [place] [address] Dr. NATH Creatinine with Estimated GFR (04/07/2021 8:04 AM CDT) P athologist Signature Creatinine 0.69 0.59 - 04/07/2021 DTL 1.04 mg/dL 9:29 AM CDT eGFR-Non 85 >=60 04/07/2021 DTL Black/ mL/min/BSA 9:29 AM CDT [place] Comment: ----ADDITIONAL INFORMATION---- Estimated GFR calculated using the 2009 CKD_EPI creatinine equation. eGFR-Black/ >90 >=60 mL/min/BSA 2020 9:29 AM CDT DTL Comment: ----ADDITIONAL INFORMATION---- Estimated GFR calculated using the 2009 CKD_EPI creatinine equation. Specimen Anatomical Collection Method Collection Time Receive d Time (Source) Location / / Volume Laterality Blood (Blood, 04/07/2021 8:04 AM 04/07/20 8:58 Venous) CDT AM CDT Arturo Ricks M.D. LAB BLOOD ADD-ON Performing Organization Address City/State/ZIP Code Phon e Number [facility] - [address] [place], [place] [address] [facility] [place] [address] Laboratories[facility] [address] (ABNORMAL) CBC no call back, reflex T/S HGB <8 (04/07/2021 8:04 AM CDT) [facility] gist Method Time Signature Hemoglobin 13.0 11.6 - 04/07/2021 DTL 15.0 g/dL 8:54 AM CDT Hematocrit 39.2 35.5 - 04/07/2021 DTL 44.9 % 8:54 AM CDT Erythrocytes 4.42 3.92 - 04/07/2021 DTL 5.13 8:54 AM CDT x10(12)/L MCV 88.7 78.2 - 04/07/2021 DTL 97.9 fL 8:54 AM CDT RBC Distrib Width 14.0 12.2 - 04/07/2021 DTL 16.1 % 8:54 AM CDT Platelet Count 236 157 - 371 04/07/2021 DTL x10(9)/L 8:54 AM CDT Leukocytes 3.0 (L) 3.4 - 9.6 04/07/2021 DTL x10(9)/L 8:54 AM CDT Neutrophils 1.89 1.56 - 04/07/2021 DTL 6.45 8:54 AM CDT x10(9)/L Lymphocytes 0.53 (L) 0.95 - 04/07/2021 DTL 3.07 8:54 AM CDT x10(9)/L Monocytes 0.34 0.26 - 04/07/2021 DTL 0.81 8:54 AM CDT x10(9)/L Eosinophils 0.18 0.03 - 04/07/2021 DTL 0.48 8:54 AM CDT x10(9)/L Basophils <0.03 0.01 - 04/07/2021 DTL 0.08 8:54 AM CDT x10(9)/L Specimen Anatomical Collection Method Collection Time Receive d Time (Source) Location / / Volume Laterality Blood (Blood, 04/07/2021 8:04 AM 04/07/20 8:29 Venous) CDT AM CDT Authorizing Provider Result Sammi Ricks M.D. LAB BLOOD NON ADD-ON Performing Organization Address City/[facility]/ZIP Code Phon e Number [facility] - [address] [place], [place] [address] [facility] [place] [place] [address] Calcium, Total (04/07/2021 8:04 AM CDT) P athologist Signature Calcium, Total, 9.6 8.8 - 10.2 04/07/2021 DTL S mg/dL 9:29 AM CDT Specimen Anatomical Collection Method Collection Time Receive d Time (Source) Location / / Volume Laterality Blood (Blood, 04/07/2021 8:04 AM 04/07/20 8:58 Venous) CDT AM CDT Authorizing Provider Result Sammi Ricks M.D. LAB BLOOD ADD-ON Performing Organization Address City/[facility]/ZIP Code Phon e Number [facility] - [address] [place], [place] [address] [facility] [place] [address] [place] [address] AST (Aspartate Aminotransferase) (04/07/2021 8:04 AM CDT) Patholo gist Method Time Signature Aspartate 20 8 - 43 04/07/2021 DTL Aminotransferase U/L 9:29 AM CDT (AST), S Specimen Anatomical Collection Method Collection Time Receive d Time (Source) Location / / Volume Laterality Blood (Blood, 04/07/2021 8:04 AM 04/07/20 8:58 Venous) CDT AM CDT Arturo Ricks M.D. LAB BLOOD ADD-ON Performing Organization Address City/State/ZIP Code Phon e Number [facility] - [address] [place], [place] [address] [place] [address] [facility] [address] [facility] Alkaline Phosphatase (04/07/2021 8:04 AM CDT) athologist Signature Alkaline 70 35 - 104 04/07/2021 DTL Phosphatase, S U/L 9:29 AM CDT Specimen Anatomical Collection Method Collection Time Receive d Time (Source) Location / / Volume Laterality Blood (Blood, 04/07/2021 8:04 AM 04/07/20 8:58 Venous) CDT AM CDT Arturo Ricks M.D. LAB BLOOD ADD-ON Performing Organization Address City/State/ZIP Code Phon e Number [facility] - [address] [place], [place] [address] [place] [address] Laboratories-[place] [address] [address] [facility] documented in this encounter Visit Diagnoses Diagnosis Waldenstrom's Macroglobulinemia (HCC) documented in this encounter Care Teams Anesthesia Assistant Relationship Specialty Start Date End Date Elsewhere, Pcp PCP - General Family Medicine 03/04/21 documented as of this encounter
--- OUTSIDE RECORDS SUMMARY | 2022-07-02 09:16 | XMS_ITS | Encounter Summary ---
:1945 Author Organization [facility] Address [address] [place] [address] Care Team Providers Name Role Phone Elsewhere, Pcp Primary Care Provider Unavailable Reason for Visit Reason Comments Post-op Follow-up Outpatient (Routine) - Closed Specialty Diagnoses / Procedures Referred By Contact Refer red To Contact Ophthalmology Arorn Patricio M. D. [facility] [address] [place] [phone] Referral ID Status Reason Start Date Expiration Date Visits Requ ested Visits Authorized [id number] Closed 01/01/2021 01/01/2022 1 1 Encounter Details Date Type Department Care Team Description 03/31/2021 Office Visit Department of Arron Patricio Ophthalmology ar Knox M.D. Implant Status Post [place], [place] [address] [place] [address] (Primary Dx) [address] [place] [phone] Social History Tobacco Use Types Packs/Day Years [...] or relatives? How often do you attend jain or More than 4 times per year 04/09/2022 gnosticist services? Do you belong to any clubs or Yes 04/09/2022 organizations such as jain groups, unions, fraternal or athletic groups, or [...] encounter Progress Notes Arron Patricio M.D. - 03/31/2021 10:45 AM CDT #1 s/p Cataract surgery with intraocular lens implant, right eye. Doing well. Discontinue postoperative drops. Rx given. #2 Subconjunctival lymphoma, left eye s/p incisional [...] rimary documented in this encounter Care Teams Digester Operator Helper Relationship Specialty Start Date End Date Elsewhere, Pcp PCP - General Family Medicine 03/04/21 documented as of this encounter
--- OUTSIDE RECORDS SUMMARY | 2022-07-02 09:17 | XMS_ITS | Encounter Summary ---
:1945 Author Organization [facility] Address [address] [place] [address] Care Team Providers Name Role Phone Unavailable Primary Care Provider Unavailable Reason for Referral Outpatient (Routine) - Closed Specialty Diagnoses / Procedures Referred By Referred To Contact Contact Hematology Oncology Diagnoses Waldenstrom's Macroglobulinemia (HCC) Rika Cameron M.D. [address] [place] [address] Referral ID Status Reason Start Date Expiration Date Visits Requ ested Visits Authorized [id number] Closed 09/11/2018 09/11/2019 1 1 OTECHNOLOGIST SUPERVISOR Reason for Visit Outpatient (Routine) - Closed Specialty Diagnoses / Procedures Referred By Contact Refer red To Contact Hematology Oncology Rika Cameron [place] M.D. [address] [place] [address] Referral ID Status Reason Start Date Expiration Date Visits Requ ested Visits Authorized [id number] Closed 03/09/2018 03/09/2019 1 1 Encounter Details Date Type Department Care Team Description 09/11/2018 Office Visit Division of Kiko Cameron (Primary Dx); Hematology in Rika Smith M.D. Waldenstrom's Macroglobulinemia (HCC) [place], [place] [address] [facility] [address] [place] [address] [phone] Social History Tobacco Use Types Packs/Day Years [...] More than 4 times per year 04/09/2022 zoroastrianism services? Do you belong to any clubs [...] slept in a group home (including now)? Sex Assigned at Date Recorded Female 03/05/2018 7:34 PM CDT documented as of this encounter Last Filed Vital Signs Vital Sign Reading Time Taken Comments Blood Pressure 128/74 09/11/2018 10:12 AM HISTOTECHNOLOGIST SUPERVISOR Pulse 69 09/11/2018 10:12 AM HISTOTECHNOLOGIST SUPERVISOR Temperature 36.5 ??C (97.7 ??F) 09/11/2018 10:12 AM HISTOTECHNOLOGIST SUPERVISOR Respiratory Rate - - Oxygen Saturation - - Inhaled Oxygen Concentration - - Weight 64.7 kg (142 lb 10.2 oz) 09/11/2018 10:12 AM HISTOTECHNOLOGIST SUPERVISOR Height 167.3 cm (5' 5.87) 09/11/2018 10:12 AM HISTOTECHNOLOGIST SUPERVISOR Body Mass Index 23.12 09/11/2018 10:12 AM HISTOTECHNOLOGIST SUPERVISOR documented in this encounter Progress Notes Rika Cameron M.D. - 09/11/2018 10:00 AM CST SUBJECTIVE REASON FOR VISIT Follow-up Waldenstrom's macroglobulinemia HISTORY OF PRESENT ILLNESS Sarah Meyer is a 72 y.o. year old female who presents today for follow-up of Waldenstrom's macroglobulinemia. The history of lymphoma as listed below. Patient is doing well. She denies lymphadenopathy, fevers, unexplained weight loss, and drenching night sweats. Since I last saw her, she did have laser treatment to the left eye which greatly improvedher vision. She was under quite a bit of stress with the illness and subsequent of her [id number] in July. About a week after the , she developed symptoms of anxiousness, palpitations, and weakness. She found that the symptoms improved when she ate food or drink liquids that contained sodium. She also found that exercise helped. Her chiropractor suggested that she may have adrenalexhaustion and gave her a supplement. The supplement was not particularly helpful. However, she started using a topical cream for adrenal insufficiency and her symptoms have greatly improved over the last few days. She denies any GI symptoms, respiratory symptoms, fever, or sleep difficulties. Waldenstrom's Macroglobulinemia (HCC) 2001 Initial Diagnosis Waldenstrom's Macroglobulinemia (HCC) 2001 - 2010 Chemotherapy Intermittent Rituxan x10 different series. 2011 - 03/07/2012 Chemotherapy Dexamethasone + Rituximab + Cyclophosphamide x6 cycles for Waldenstrom Macroglobulinemia 11/08/2016 - 01/25/2017 Chemotherapy Rituxan-Bendamustine x3 cycles. The following portions of the patient's history were reviewed and updated as appropriate: allergies,current medications, family history, medical history, social history, surgical history and problem list. REVIEW OF SYSTEMS Psychiatric/Behavioral: Positive for feeling nervous, anxious, or on edge in past two weeks. The following systems were negative: Constitutional, Skin, Eyes, ENT, CV, Respiratory, GI, , Hematologic, Musculoskeletal, Neuro OBJECTIVE Vitals: 09/11/18 1012 BP: 128/74 Patient Position: Sitting Pulse: 69 Temp: 36.5 ??C Height: 167.3 cm Weight: 64.7 kg TempSrc: Tympanic Body surface area is 1.73 meters squared. PHYSICAL EXAM Constitutional: She is oriented to person, place, and time. She appears well- developed and well-nourished. Eyes: Left eye lid drooping, conjunctival Framingham colored lesion noted at the superior portion of the globe, improved Cardiovascular: Normal rate, regular rhythm and normal heart sounds. Pulmonary/Chest: Effort normal and breath sounds normal. Abdominal: Soft. Bowel sounds are normal. There is no hepatosplenomegaly. Lymphadenopathy: She has no cervical adenopathy. She has no axillary adenopathy. Right: No inguinal and no supraclavicular adenopathy present. Left: No inguinal and no supraclavicular adenopathy present. Neurological: She is alert and oriented to person, place, and time. Skin: Skin is warm and dry. Psychiatric: She has a normal mood and affect. Her behavior is normal. Judgment and thought content normal. Nursing note and vitals reviewed. DIAGNOSTICS I have reviewed the recent relevant labs. No results found. Recent Results (from the past 72 hour(s)) Alkaline Phosphatase Collection Time: 09/11/18 7:04 AM Result Value Alkaline Phosphatase, S 62 AST (Aspartate Aminotransferase) Collection Time: 09/11/18 7:04 AM Result Value Aspartate Aminotransferase (AST), S 15 Bilirubin, Total Collection Time: 09/11/18 7:04 AM Result Value Bilirubin, Total, S 0.7 CBC with Differential Collection Time: 09/11/18 7:04 AM Result Value Hemoglobin 13.3 Hematocrit 38.9 Erythrocytes 4.38 MCV 88.8 RBC Distrib Width 13.4 Platelet Count 194 Leukocytes 2.8 (L) Neutrophils 1.96 Lymphocytes 0.29 (L) Monocytes 0.26 Eosinophils 0.24 Basophils <0.03 Creatinine with Estimated GFR Collection Time: 09/11/18 7:04 AM Result Value Creatinine, S 0.72 eGFR-Non Black 83 eGFR-Black >90 Glucose, Fasting Collection Time: 09/11/18 7:04 AM Result Value Glucose, P 95 Last Intake 13 ASSESSMENT / PLAN #1 Weakness General Unclear if this was related to exhaustion related to chronic stressful events versus other etiology.Symptoms thankfully have started to improve. I have added on a.m. cortisol, sodium, and potassium levels on to the labs that were drawn this morning and I will let her know the results via the patient portal. #2 Waldenstrom's macroglobulinemia Full laboratory studies are pending including a monoclonal gammopathy studies and IgM level. I will let her know the results later today. However, hemoglobin is normal and total protein level is similar to 6 months ago, so I suspect that her monoclonal protein levels are stable and will continue observation every 6 months. Notably, patient had a bone density test checked locally which reported about a 10% decrease in the total mean bone mineral density, meeting osteopenia definition. Likely the steroids and chemotherapy that she really has received over the years has exacerbated this. I encouraged her to continue weight-bearing exercise such as walking. Follow-up: Return to clinic in 6 months Education We discussed the diagnosis and treatment plan in detail. The patient expressed understanding of the content. No apparent learning barriers were identified; learning preferences include listening. I personally spent over half of a total 30 minutes face to face with the patient in counseling and discussion and/or coordination of care as described above. Signed by: Rika Cameron M.D. 09/11/2018 11:12 AM OTECHNOLOGIST SUPERVISOR documented in this encounter Plan of Treatment Scheduled Referrals Name Type Priority Associated Diagnoses Order S [facility] Hematology office Outpatient Routine Waldenstrom's Expected: visit (clinic) Referral Macroglobulinemia (HCC) (Approximate), Expires: 09/11/2019 documented as of this encounter Procedures Procedure Name Priority Date/Time Associated Diagnosis Comme nts SODIUM, S/P Routine 09/11/2018 7:01 AM Weakness General Resul ts for this HISTOTECHNOLOGIST SUPERVISOR procedure are i n the results section . POTASSIUM, S/P Routine 09/11/2018 7:01 AM Weakness General Res ults for this HISTOTECHNOLOGIST SUPERVISOR procedure are i n the results section . CORTISOL, S Routine 09/11/2018 7:01 AM Weakness General Resul ts for this HISTOTECHNOLOGIST SUPERVISOR procedure are i n the results section . documented in this encounter Results (ABNORMAL) Immunoglobulin M (IgM) (03/05/2019 9:18 AM CDT) [facility] Method Time Signature Immunoglobulin M 1310 (H) 37 - 286 03/05/2019 (IgM), S mg/dL 5:13 PM CDT Specimen Anatomical Collection Method Collection Time Receive d Time (Source) Location / / Volume Laterality Blood (Blood, 03/05/2019 9:18 AM 03/05/20 19 1:27 Venous) CDT PM CDT Rika Cameron M.D. LAB BLOOD ADD-ON Performing Organization Address City/State/ZIP Code Phon e Number [facility] [address] [place] [phone] [address] [facility] Sodium (03/05/2019 9:18 AM CDT) P athologist Signature Sodium, S 136 135 - 145 03/05/2019 mmol/L 10:21 AM CDT Specimen Anatomical Collection Method Collection Time Receive d Time (Source) Location / / Volume Laterality Blood (Blood, 03/05/2019 9:18 AM 03/05/20 19 9:39 Venous) CDT AM CDT Rika Cameron M.D. LAB BLOOD ADD-ON Performing Organization Address City/[facility]/ZIP Code Phon e Number [facility] - [address] [place] [address] [facility] Potassium (03/05/2019 9:18 AM CDT) P athologist Signature Potassium, S 3.9 3.6 - 5.2 03/05/2019 mmol/L 10:21 AM CDT Specimen Anatomical Collection Method Collection Time Receive d Time (Source) Location / / Volume Laterality Blood (Blood, 03/05/2019 9:18 AM 03/05/20 19 9:39 Venous) CDT AM CDT Rika Cameron M.D. LAB BLOOD ADD-ON Performing Organization Address City/[facility]/ZIP Code Phon e Number [facility] - [address] [place] [address] [address] [facility] (ABNORMAL) Monoclonal Gammopathy Screen (03/05/2019 9:18 AM CDT) Component Value Ref Test Analysis Performed At Patholo gist Range Method Time Signature Total 6.5 6.3 - 03/05/2019 Protein, S 7.9 g/dL 2:44 PM CDT [place] Free 2.25 (H) 0.3300 - 03/05/2019 Light Chain, 1.94 7:08 PM CDT S mg/dL Lambda Free 0.5970 0.5700 - 03/05/2019 Light Chain, 2.63 4:33 PM CDT S mg/dL [place]/Lambda 3.77 (H) 0.2600 - 03/05/2019 FLC Ratio 1.65 7:08 PM CDT Albumin 3.3 (L) 3.4 - 03/06/2019 4.7 g/dL 12:05 PM CDT Alpha-1 0.3 0.1 - 03/06/2019 Globulin 0.3 g/dL 12:05 PM CDT Alpha-2 1.0 0.6 - 03/06/2019 Globulin 1.0 g/dL 12:05 PM CDT Beta-Globulin 0.8 0.7 - 03/06/2019 1.2 g/dL 12:05 PM CDT Gamma-Globuli 1.2 0.6 - 03/06/2019 n 1.6 g/dL 12:05 PM CDT A/G Ratio 1.01 03/06/2019 12:05 PM CDT M spike 0.9 g/dL 03/06/2019 12:05 PM CDT Impression M-spike in gamma fraction. 03/06/2019 See Isotype. 12:05 PM CDT M-protein Monoclonal IgM 03/07/2019 Isotype kappa.D~Suggest 5:17 PM CDT MALDI-TOF MS protein electrophoresis to follow patient rather than isotyping. Comment: ----ADDITIONAL INFORMATION---- The submitted sample was assayed by five separate immunopurifications for IgG, IgA, IgM, kappa and lambda. ??The r esult reflects the findings of either no monoclonal protein detected or those monoclonal immunoglobulins that were detected. This test was developed and its performa nce characteristics determined by [facility] in a manner consistent with CLIA requirements. This test has not been cleared or approved by the [place] d and Drug Administration. Specimen Anatomical Collection Method Collection Time Receive d Time (Source) Location / / Volume Laterality Blood (Blood, 03/05/2019 9:18 AM 03/05/20 19 1:27 Venous) CDT PM CDT Rika Cameron M.D. LAB BLOOD ADD-ON Performing Organization Address City/State/ZIP Code Phon e Number [facility] [address] [place], [place] [address] [facility] Creatinine with Estimated GFR (03/05/2019 9:18 AM CDT) athologist Signature Creatinine 0.64 0.59 - 03/05/2019 1.04 mg/dL 10:21 AM CDT eGFR-Non 88 >=60 03/05/2019 Black/ mL/min/BSA 10:21 AM CDT [place] Comment: ----ADDITIONAL INFORMATION---- Estimated GFR calculated using the 2009 CKD_EPI creatinine equation. eGFR-Black/ >90 >=60 mL/min/BSA 2018 10:21 AM CDT Comment: ----ADDITIONAL INFORMATION---- Estimated GFR calculated using the 2009 CKD_EPI creatinine equation. Specimen Anatomical Collection Method Collection Time Receive d Time (Source) Location / / Volume Laterality Blood (Blood, 03/05/2019 9:18 AM 03/05/20 19 9:39 Venous) CDT AM CDT Rika Cameron M.D. LAB BLOOD ADD-ON Performing Organization Address City/State/ZIP Code Phon e Number [facility] - [address] [place], [place] [address] [facility] (ABNORMAL) CBC with Differential (03/05/2019 9:18 AM CDT) [facility] Method Time Signature Hemoglobin 12.4 11.6 - 03/05/2019 15.0 g/dL 9:54 AM CDT Hematocrit 38.4 35.5 - 03/05/2019 44.9 % 9:54 AM CDT Erythrocytes 4.28 3.92 - 03/05/2019 5.13 9:54 AM CDT x10(12)/L MCV 89.7 78.2 - 03/05/2019 97.9 fL 9:54 AM CDT RBC Distrib Width 13.7 12.2 - 03/05/2019 16.1 % 9:54 AM CDT Platelet Count 215 157 - 371 03/05/2019 x10(9)/L 9:54 AM CDT Leukocytes 3.6 3.4 - 9.6 03/05/2019 x10(9)/L 9:54 AM CDT Neutrophils 2.24 1.56 - 03/05/2019 6.45 9:54 AM CDT x10(9)/L Lymphocytes 0.45 (L) 0.95 - 03/05/2019 3.07 9:54 AM CDT x10(9)/L Monocytes 0.37 0.26 - 03/05/2019 0.81 9:54 AM CDT x10(9)/L Eosinophils 0.49 (H) 0.03 - 03/05/2019 0.48 9:54 AM CDT x10(9)/L Basophils <0.03 0.01 - 03/05/2019 0.08 9:54 AM CDT x10(9)/L Specimen Anatomical Collection Method Collection Time Receive d Time (Source) Location / / Volume Laterality Blood (Blood, 03/05/2019 9:18 AM 03/05/20 9:39 Venous) CDT AM CDT Rika Cameron M.D. LAB BLOOD ADD-ON Performing Organization Address City/[facility]/ZIP [facility] Phon e Number [facility] - [address] Bilirubin, Total (03/05/2019 9:18 AM CDT) P athologist Signature Bilirubin, 0.5 <=1.2 mg/dL 03/05/2019 Total, S 10:21 AM CDT Specimen Anatomical Collection Method Collection Time Receive d Time (Source) Location / / Volume Laterality Blood (Blood, 03/05/2019 9:18 AM 03/05/20 9:39 Venous) CDT AM CDT Rika Cameron M.D. LAB BLOOD ADD-ON Performing Organization Address City/[facility] Code Phon e Number [facility] - [address] AST (Aspartate Aminotransferase) (03/05/2019 9:18 AM CDT) Patholo gist Method Time Signature Aspartate 16 8 - 43 03/05/2019 Aminotransferase U/L 10:21 AM CDT (AST), S Specimen Anatomical Collection Method Collection Time Receive d Time (Source) Location / / Volume Laterality Blood (Blood, 03/05/2019 9:18 AM 03/05/20 9:39 Venous) CDT AM CDT Rika Cameron M.D. LAB BLOOD ADD-ON Performing Organization Address City/[facility] Phon e Number [facility] - [address] Alkaline Phosphatase (03/05/2019 9:18 AM CDT) P athologist Signature Alkaline 58 35 - 104 03/05/2019 Phosphatase, S U/L 10:21 AM CDT Specimen Anatomical Collection Method Collection Time Receive d Time (Source) Location / / Volume Laterality Blood (Blood, 03/05/2019 9:18 AM 03/05/20 9:39 Venous) CDT AM CDT Rika Cameron M.D. LAB BLOOD ADD-ON Performing Organization Address City/[facility]/ZIP Code Phon e Number [facility] - [address] [place] [phone] [address] [facility] Potassium (09/11/2018 7:01 AM HISTOTECHNOLOGIST SUPERVISOR) P athologist Signature Potassium, S 4.4 3.6 - 5.2 09/11/2018 [facility] mmol/L 11:23 AM HISTOTECHNOLOGIST SUPERVISOR [facility] Specimen Anatomical Collection Method Collection Time Receive d Time (Source) Location / / Volume Laterality Blood (Blood, 09/11/2018 7:01 AM 09/11/19 Venous) HISTOTECHNOLOGIST SUPERVISOR 10:59 AM HISTOTECHNOLOGIST SUPERVISOR Rika Cameron M.D. LAB BLOOD ADD-ON Performing Organization Address City/[facility]/ZIP Code Phon e Number [facility] - [address] [place] [phone] [address] [facility] Sodium (09/11/2018 7:01 AM HISTOTECHNOLOGIST SUPERVISOR) P athologist Signature Sodium, S 136 135 - 145 09/11/2018 [facility] mmol/L 11:23 AM HISTOTECHNOLOGIST SUPERVISOR [facility] Specimen Anatomical Collection Method Collection Time Receive d Time (Source) Location / / Volume Laterality Blood (Blood, 09/11/2018 7:01 AM 09/11/19 Venous) HISTOTECHNOLOGIST SUPERVISOR 10:59 AM HISTOTECHNOLOGIST SUPERVISOR Rika Cameron M.D. LAB BLOOD ADD-ON Performing Organization Address City/[facility]/ZIP [facility] Phon e Number [facility] - [address] [place] [address] [address] [facility] Cortisol (09/11/2018 7:01 AM HISTOTECHNOLOGIST SUPERVISOR) P athologist Signature Cortisol AM 19 7 - 25 09/11/2018 [facility] Result mcg/dL 12:03 PM HISTOTECHNOLOGIST SUPERVISOR LAB[facility]ATORIES [facility] Specimen Anatomical Collection Method Collection Time Receive d Time (Source) Location / / Volume Laterality Blood (Blood, 09/11/2018 7:01 AM 09/11/19 Venous) HISTOTECHNOLOGIST SUPERVISOR 10:59 AM HISTOTECHNOLOGIST SUPERVISOR Rika Cameron M.D. LAB BLOOD ADD-ON Performing Organization Address City/State/ZIP Code Phon e Number [facility] - [address] [place] [address] [address] [facility] documented in this encounter Visit Diagnoses Diagnosis Weakness General - Primary Waldenstrom's Macroglobulinemia (HCC) documented in this encounter
--- OUTSIDE RECORDS SUMMARY | 2022-07-02 09:17 | XMS_ITS | Encounter Summary ---
:1945 Author Organization [facility] Address [address] [place] [address] Care Team Providers Name Role Phone Unavailable Primary Care Provider Unavailable Encounter Details Date Type Department Care Team Description 03/31/2020 Clinical Communication Division of Kevin Ricks , Hematology in Arturo Mckeon M.D. [place], [place] [address] [facility] [address] [place] [phone] Social History Tobacco Use Types Packs/Day Years [...] or relatives? How often do you attend cheondoism or More than 4 times per year 04/09/2022 islam services? Do you belong to any clubs or Yes 04/09/2022 organizations such as cheondoism groups, unions, fraternal or athletic groups, or [...] the highest level of school Associate degree: academ program 03/01/2019 you have completed or the highest degree you have received? Sex Assigned at Date Recorded Female 03/05/2018 7:34 PM CDT documented as of this encounter Plan of Treatment Not on filedocumented as of this encounter Visit Diagnoses Not on filedocumented in this encounter
--- OUTSIDE RECORDS SUMMARY | 2022-07-02 09:17 | XMS_ITS | Encounter Summary ---
:1945 Author Organization [facility] Address [address] [place] [address] Care Team Providers Name Role Phone Unavailable Primary Care Provider Unavailable Reason for Visit Reason Comments Please call pt Encounter Details Date Type Department Care Team Description 03/25/2020 Clinical Communication Division of Rika Cameron call pt Hematology in Ana Smith [place], [place] [address] [place] [address] [place] [phone] Social History Tobacco Use Types Packs/Day Years [...] or relatives? How often do you attend synagogue or More than 4 times per year 04/09/2022 congregational services? Do you belong to any clubs or Yes 04/09/2022 organizations such as synagogue groups, unions, fraternal or athletic groups, or [...] place to sleep or slept in a skilled nursing (including now)? Education Answer Date Recorded What is the highest level of school Associate degree: [employer] program 03/01/2019 you have completed or the highest degree you have received? Sex Assigned at Date Recorded Female 03/05/2018 7:34 PM CDT documented as of this encounter Miscellaneous Notes Telephone Encounter - Bel Gomez R.N. - 03/28/2020 3:17 PM CDT Returned call to patient. Because of her 's appointments in [place] next week, patient asks to have her labs done Tuesday at the [facility] (not part of the [facility]). That way, her full set of resultsshould be available when she sees Dr. Brown on Tuesday, 04/04. Patient's blood tests here will be cancelled. Patient appreciated the phone call. Telephone Encounter - Arturo Aleman M.D. - 03/28/2020 3:12 PM CDT I am fine with her doing labs locally. Regarding the appointment, yes I can see her in the afternoonbut I will ask her to keep her appointment as is. In essence, she can just show up late. Telephone Encounter - Mary Majano - 03/27/2020 11:10 AM CDT Patient called to follow up on this. She wanted to know if a lab order had been sent yet. Please send to the [facility] She is requesting that we please call her to let her know when the order has been sent: [phone] Or send her a portal message Thank you, Mary Telephone Encounter - Daisy López R.N. - 03/26/2020 8:[address] Brown, Sarah's also was diagnosed with Waldnstrom's with treatment in [place]. Micah, , has appointments on April 04. Sarah would like to draw her labs in [place] (I will arrange in advance of the appointment), but she questions if you could see her in the afternoon on April 04. 1 pm or later? She cannot make the morning appointment. Telephone Encounter - Ann Marie Massey - 03/25/2020 4:29 PM CDT Summer, Please call pt at [phone]. She wanted to speak with a nurse regarding her upcoming appointments. Thank you for your time. documented in this encounter Plan of Treatment Not on filedocumented as of this encounter Visit Diagnoses Not on filedocumented in this encounter
--- OUTSIDE RECORDS SUMMARY | 2022-07-02 09:17 | XMS_ITS | Encounter Summary ---
:1945 Author Organization [facility] Address [address] [place] [address] Care Team Providers Name Role Phone Unavailable Primary Care Provider Unavailable Reason for Visit Reason Comments Outside labs Encounter Details Date Type Department Care Team Description 04/03/2020 Clinical Communication Division of R[facility] Cameron labs Hematology in [place], [place] [address] [place] [address] [address] [place] [phone] Social History Tobacco Use Types Packs/Day Years [...] or relatives? How often do you attend [employer] or More than 4 times per year 04/09/2022 amish services? Do you belong to any clubs or Yes 04/09/2022 organizations such as [employer] groups, unions, fraternal or athletic groups, or [...] place to sleep or slept in a alf (including now)? Education Answer Date Recorded What is the highest level of school Associate degree: gerardo talbert, 04/02/2020 you have completed or the highest technical, or vocational p nasir degree you have received? Sex Assigned at Date Recorded Female 03/05/2018 7:34 PM CDT documented as of this encounter Miscellaneous Notes Telephone Encounter - Tricia Emery - 04/03/2020 2:36 PM CDT Outside labs collected on March 31, 2020, have been received. The fax has been placed in the eFax folder, and the CBC results are as noted below. Hemoglobin: 12.6 Hematocrit: 37.6 WBC: 3.29 ANC: 2.04 Platelets: 241 documented in this encounter Plan of Treatment Not on filedocumented as of this encounter Procedures Procedure Name Priority Date/Time Associated Diagnosis Comme nts HEMATOLOGY/ONCOLOGY - Routine 03/31/2020 Result s for this BLOOD, EXTERNAL LAB procedur e are in the RESULTS results section . documented in this encounter Results Hematology/Oncology - Blood, External Lab Results (03/31/2020) Analysis Performed At Patho logist Time Signature EXT Hemoglobin 12.6 EXT Hematocrit 37.6 EXT Leukocytes 3.29 EXT Absolute 2.04 Neutrophil Count EXT Lymphs 0.63 Absolute EXT Platelet Count 241 EXT AST 29 EXT Alkaline 55 Phosphatase EXT Bilirubin, 0.7 Total EXT Lactate 508 Dehydrogenase (LD), S EXT Potassium 4.2 EXT Calcium, Total 9.1 EXT Creatinine 0.4 mg/dL Comment: GFR 109 EXT [place]/Lambda-Free Light Chain Ratio 3.70 EXT 25-Hydroxy D Total 48.6 ng/mL EXT Total IgG 233 IgA 17 EXT Toxoplasma Ab, IgM, S 1110 Specimen (Source) Anatomical Location Collection Method / Collectio n Time Received Time / Laterality Volume Blood 03/31/2020 Narrative This result has an attachment that is no t available. Historical Provider LAB BLOOD NON ADD-ON documented in this encounter Visit Diagnoses Not on filedocumented in this encounter
--- OUTSIDE RECORDS SUMMARY | 2022-07-02 09:17 | XMS_ITS | Encounter Summary ---
:[address] [facility] Address [address] [place] [address] Care Team Providers Name Role Phone Unavailable Primary Care Provider Unavailable Encounter Details Date Type Department Care Team Description 08/28/2020 Hospital Encounter Department of [facility] Laboratory Medicine Macroglo bulinemia (HCC) and Pathology, [facility], in [place], [place] [address] [place] [address] Social History Tobacco Use Types Packs/Day Years [...] More than 4 times per year 04/09/2022 restorationist services? Do you belong to any clubs [...] daily. 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 B complex-vitamins Take 1 tablet by mouth [...] needed. 150 mg tablets, helps adrenal symptoms multivitamin tablet Take 1 tablet by mouth. 0 04/201004/16/2022 UNABLE TO FIND A&D capsule 1 daily Med 0 03/31/2021 Name: UNABLE TO FIND as needed. Adrena Calm Cream 0 03/31/2021 Med Name: documented as of this encounter Plan of Treatment Not on filedocumented as of this encounter Procedures Procedure Name Priority Date/Time Associated Diagnosis Comme nts CBC NO CALL BACK, Routine 09/09/2020 1:25 [facility] Result s for REFLEX T/S PM LIVER TRIMMER Macroglobulinemia (HCC) this procedure are in the results section. M-SPIKE FOLLOW-UP, S Routine 09/09/2020 1:25 [facility] Res ults for PM LIVER TRIMMER Macroglobulinemia (HCC) this procedure are in the results section. IMMUNOGLOBULIN FREE Routine 09/09/2020 1:25 [facility] Resu lts for LIGHT CHAINS, S PM LIVER TRIMMER Macroglobulinemia (HCC) t his procedure are in the results section. IMMUNOGLOBULINS (IGG, Routine 09/09/2020 1:25 [facility] Re sults for IGA, AND IGM), S PM LIVER TRIMMER Macroglobulinemia (HCC) this procedure are in the results section. ASPARTATE Routine 09/09/2020 1:25 [facility] Results for AMINOTRANSFERASE (AST), PM LIVER TRIMMER Macroglobulinemia (HCC) this procedure S/P are in the results section. SODIUM, S/P Routine 09/09/2020 1:25 [facility] Results for PM LIVER TRIMMER Macroglobulinemia (HCC) this procedure are in the results section. POTASSIUM, S/P Routine 09/09/2020 1:25 [facility] Results f or PM LIVER TRIMMER Macroglobulinemia (HCC) this procedure are in the results section. ALKALINE PHOSPHATASE, Routine 09/09/2020 1:25 [facility] Re sults for S/P PM LIVER TRIMMER Macroglobulinemia (HCC) this procedure are in the results section. CREATININE WITH EGFR, Routine 09/09/2020 1:25 [facility] Re sults for S/P PM LIVER TRIMMER Macroglobulinemia (HCC) this procedure are in the results section. CALCIUM, TOT, S/P Routine 09/09/2020 1:25 [facility] Result s for PM LIVER TRIMMER Macroglobulinemia (HCC) this procedure are in the results section. documented in this encounter Results Sodium (09/09/2020 1:25 PM LIVER TRIMMER) P athologist Signature Sodium, S 135 135 - 145 09/10/2020 9:46 DTL mmol/L AM LIVER TRIMMER Specimen Anatomical Collection Method Collection Time Receive d Time (Source) Location / / Volume Laterality Blood (Blood, 09/09/2020 1:25 PM 09/10/19 21 8:37 Venous) LIVER TRIMMER AM LIVER TRIMMER Resulting Agency Comment Mailed In Specimen Arturo Ricks M.D. LAB BLOOD ADD-ON Performing Organization Address City/State/[facility] Phon e Number [facility] - [address] (ABNORMAL) Potassium (09/09/2020 1:25 PM LIVER TRIMMER) P athologist Signature Potassium, S 3.5 (L) 3.6 - 5.2 09/10/2020 DTL mmol/L 9:46 AM LIVER TRIMMER Specimen Anatomical Collection Method Collection Time Receive d Time (Source) Location / / Volume Laterality Blood (Blood, 09/09/2020 1:25 PM 09/10/19 8:37 Venous) LIVER TRIMMER AM LIVER TRIMMER Resulting Agency Comment Mailed In Specimen Arturo Ricks M.D. LAB BLOOD ADD-ON Performing Organization Address [facility] Phon e Number [facility] - [address] [place] [phone] (ABNORMAL) M-Alok Follow-Up (09/09/2020 1:25 PM LIVER TRIMMER) Patholo gist Method Time Signature Total Protein, 6.6 6.3 - 7.9 09/10/2020 [facility] S g/dL 12:28 PM LIVER TRIMMER Albumin 3.4 3.4 - 4.7 09/10/2020 [facility] g/dL 4:10 PM LIVER TRIMMER Alpha-1 0.3 0.1 - 0.3 09/10/2020 [facility] Globulin g/dL 4:10 PM LIVER TRIMMER Alpha-2 1.1 (H) 0.6 - 1.0 09/10/2020 [facility] Globulin g/dL 4:10 PM LIVER TRIMMER Beta-Globulin 0.8 0.7 - 1.2 09/10/2020 [facility] g/dL 4:10 PM LIVER TRIMMER Gamma-Globulin 1.0 0.6 - 1.6 09/10/2020 [facility] g/dL 4:10 PM LIVER TRIMMER A/G Ratio 1.05 09/10/2020 [facility] 4:10 PM LIVER TRIMMER M spike 0.8 (H) g/dL 09/10/2020 [facility] 4:10 PM LIVER TRIMMER Impression M-spike in 09/10/2020 [facility] gamma 4:10 PM LIVER TRIMMER fraction. Specimen Anatomical Collection Method Collection Time Receive d Time (Source) Location / / Volume Laterality Blood (Blood, 09/09/2020 1:25 PM 09/10/19 Venous) LIVER TRIMMER 10:27 AM LIVER TRIMMER Resulting Agency Comment Mailed In Specimen Arturo Ricks M.D. LAB BLOOD ADD-ON Performing Organization Address City/[facility] Phon e Number [facility] [address] [place] [phone] [address] [facility] [place] [address] Laboratory Medicine and Pathology [address] [place] [address] Dr. NATH (ABNORMAL) Immunoglobulin Free Light Chains (09/09/2020 1:25 PM LIVER TRIMMER) athologist Signature [place] Free 1.89 0.3300 - 09/10/2020 [facility] Light Chain, S 1.94 mg/dL 5:20 PM LIVER TRIMMER Lambda Free 0.6380 0.5700 - 09/10/2020 [facility] Light Chain, S 2.63 mg/dL 5:20 PM LIVER TRIMMER [place]/Lambda 2.96 (H) 0.2600 - 09/10/2020 [facility] FLC Ratio 1.65 5:20 PM LIVER TRIMMER Comment: Elevated free light chain ratios between 1.66 and 3.00 may occur due to polyclonal hypergammaglobul inemia or impaired renal clearance. An isolated increased f ree light chain ratio in this range should be interprete d with caution, and clinical correlation is recommended. Specimen Anatomical Collection Method Collection Time Receive d Time (Source) Location / / Volume Laterality Blood (Blood, 09/09/2020 1:25 PM 09/10/19 Venous) LIVER TRIMMER 10:29 AM LIVER TRIMMER Resulting Agency Comment Mailed In Specimen Arturo Ricks M.D. LAB BLOOD ADD-ON Performing Organization Address City/[facility] Code Phon e Number [facility] [address] [place], [place] [address] [facility] [facility] [place] [address] Laboratory Medicine and Pathology [address] [place] [address] Dr. NATH (ABNORMAL) Immunoglobulins (IgG, IgA, and IgM) (09/09/2020 1:25 PM LIVER TRIMMER) Patholo gist Method Time Signature Immunoglobulin A 19 (L) 61 - 356 09/10/2020 [facility] (IgA), S mg/dL 2:35 PM LIVER TRIMMER Immunoglobulin M 1020 (H) 37 - 286 09/10/2020 [facility] (IgM), S mg/dL 2:18 PM LIVER TRIMMER Immunoglobulin G 279 (L) 767 - 09/10/2020 [facility] (IgG), S 1590 1:35 PM LIVER TRIMMER mg/dL Specimen Anatomical Collection Method Collection Time Receive d Time (Source) Location / / Volume Laterality Blood (Blood, 09/09/2020 1:25 PM 09/10/19 21 Venous) LIVER TRIMMER 10:29 AM LIVER TRIMMER Resulting Agency Comment Mailed In Specimen Arturo Ricks M.D. LAB BLOOD ADD-ON Performing Organization Address City/[facility] Code Phon e Number [facility] [address] [place] [address] CENTER [facility] [place] [address] Laboratory Medicine and Pathology [address] NATH (ABNORMAL) Creatinine with Estimated GFR (09/09/2020 1:25 PM LIVER TRIMMER) Analysis Performed At Patho logist Time Signature Creatinine 1.09 (H) 0.59 - 09/10/2020 DTL 1.04 mg/dL 9:46 AM LIVER TRIMMER eGFR-Non 50 (L) >=60 09/10/2020 DTL Black/ mL/min/BSA 9:46 AM LIVER TRIMMER [place] Comment: ----ADDITIONAL INFORMATION---- Estimated GFR calculated using the 2009 CKD_EPI creatinine equation. eGFR-Black/ 57 (L) >=60 mL/min/BSA 2020 9:46 AM LIVER TRIMMER DTL Comment: ----ADDITIONAL INFORMATION---- Estimated GFR calculated using the 2009 CKD_EPI creatinine equation. Specimen Anatomical Collection Method Collection Time Receive d Time (Source) Location / / Volume Laterality Blood (Blood, 09/09/2020 1:25 PM 09/10/19 21 8:37 Venous) LIVER TRIMMER AM LIVER TRIMMER Resulting Agency Comment Mailed In Specimen Arturo Ricks M.D. LAB BLOOD ADD-ON Performing Organization Address City/State/ZIP Code Phon e Number [facility] - [address] [facility] [place] [address] [facility] [place] [address] Laboratories-[facility] 200 [facility] (ABNORMAL) CBC no call back, reflex T/S HGB <8 (09/09/2020 1:25 PM LIVER TRIMMER) [facility] Method Time Signature Hemoglobin 13.0 11.6 - 09/10/2020 DTL 15.0 g/dL 9:09 AM LIVER TRIMMER Hematocrit 39.6 35.5 - 09/10/2020 DTL 44.9 % 9:09 AM LIVER TRIMMER Erythrocytes 4.43 3.92 - 09/10/2020 DTL 5.13 9:09 AM LIVER TRIMMER x10(12)/L MCV 89.4 78.2 - 09/10/2020 DTL 97.9 fL 9:09 AM LIVER TRIMMER RBC Distrib Width 13.2 12.2 - 09/10/2020 DTL 16.1 % 9:09 AM LIVER TRIMMER Platelet Count 248 157 - 371 09/10/2020 DTL x10(9)/L 9:09 AM LIVER TRIMMER Leukocytes 3.9 3.4 - 9.6 09/10/2020 DTL x10(9)/L 9:09 AM LIVER TRIMMER Neutrophils 2.82 1.56 - 09/10/2020 DTL 6.45 9:09 AM LIVER TRIMMER x10(9)/L Lymphocytes 0.56 (L) 0.95 - 09/10/2020 DTL 3.07 9:09 AM LIVER TRIMMER x10(9)/L Monocytes 0.34 0.26 - 09/10/2020 DTL 0.81 9:09 AM LIVER TRIMMER x10(9)/L Eosinophils 0.16 0.03 - 09/10/2020 DTL 0.48 9:09 AM LIVER TRIMMER x10(9)/L Basophils 0.03 0.01 - 09/10/2020 DTL 0.08 9:09 AM LIVER TRIMMER x10(9)/L Specimen Anatomical Collection Method Collection Time Receive d Time (Source) Location / / Volume Laterality Blood (Blood, 09/09/2020 1:25 PM 09/10/19 21 8:37 Venous) LIVER TRIMMER AM LIVER TRIMMER Resulting Agency Comment Mailed In Specimen Arturo Ricks M.D. LAB BLOOD NON ADD-ON Performing Organization Address City/State/[facility] Phon e Number [facility] - [address] [place], [place] [address] [place], [place] [phone] [place] [address] Calcium, Total (09/09/2020 1:25 PM LIVER TRIMMER) P athologist Signature Calcium, Total, 9.6 8.8 - 10.2 09/10/2020 DTL S mg/dL 9:46 AM LIVER TRIMMER Specimen Anatomical Collection Method Collection Time Receive d Time (Source) Location / / Volume Laterality Blood (Blood, 09/09/2020 1:25 PM 09/10/19 8:37 Venous) LIVER TRIMMER AM LIVER TRIMMER Resulting Agency Comment Mailed In Specimen Arturo Ricks M.D. LAB BLOOD ADD-ON Performing Organization Address City/[facility]/ZIP [facility] Phon e Number [facility] - [address] [place], [place] [address] [place], [place] [phone] [place] [address]-[facility] [address] AST (Aspartate Aminotransferase) (09/09/2020 1:25 PM LIVER TRIMMER) Patholo gist Method Time Signature Aspartate 17 8 - 43 09/10/2020 DTL Aminotransferase U/L 9:46 AM LIVER TRIMMER (AST), S Specimen Anatomical Collection Method Collection Time Receive d Time (Source) Location / / Volume Laterality Blood (Blood, 09/09/2020 1:25 PM 09/10/19 21 8:37 Venous) LIVER TRIMMER AM LIVER TRIMMER Resulting Agency Comment Mailed In Specimen Arturo Ricks M.D. LAB BLOOD ADD-ON Performing Organization Address City/State/ZIP Code Phon e Number [facility] - [address] [place], [place] [address] [facility] [place] [phone] [place] [address] Alkaline Phosphatase (09/09/2020 1:25 PM LIVER TRIMMER) P athologist Signature Alkaline 65 35 - 104 09/10/2020 DTL Phosphatase, S U/L 9:46 AM LIVER TRIMMER Specimen Anatomical Collection Method Collection Time Receive d Time (Source) Location / / Volume Laterality Blood (Blood, 09/09/2020 1:25 PM 09/10/19 21 8:37 Venous) LIVER TRIMMER AM LIVER TRIMMER Resulting Agency Comment Mailed In Specimen Arturo Ricks M.D. LAB BLOOD ADD-ON Performing Organization Address City/State/ZIP Code Phon e Number [facility] - [address] [place], [place] [address] [facility] [place] [address] Laboratories-[facility] [address] documented in this encounter Visit Diagnoses Diagnosis Waldenstrom's Macroglobulinemia (HCC) documented in this encounter
--- OUTSIDE RECORDS SUMMARY | 2022-07-02 09:17 | XMS_ITS | Encounter Summary ---
:1945 Author Organization [facility] Address [address] [place] [address] Care Team Providers Name Role Phone Unavailable Primary Care Provider Unavailable Reason for Referral Outpatient (Routine) - Closed Specialty Diagnoses / Procedures Referred By Contact Refer red To Contact Hematology Oncology Rika Cameron [place] M.D. 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 Macroglobulinemia (HCC) [place], [place] [address] [place] [address] (Primary Dx) [address] [place] [phone] Social History Tobacco Use Types Packs/Day Years [...] or relatives? How often do you attend restorationism or More than 4 times per year 04/09/2022 shinto services? Do you belong to any clubs or Yes 04/09/2022 organizations such as restorationism groups, unions, fraternal or athletic groups, or [...] the highest level of school Associate degree: [employer] 03/01/2019 you have completed or the highest degree you have received? Sex Assigned at Date Recorded Female 03/05/2018 7:34 PM CDT documented as of this encounter Plan of Treatment Scheduled Referrals Name Type Priority Associated Order Schedule Diagnoses Hematology office Outpatient Referral Routine Exp ected: visit (clinic) 03/26/2020 (Approximate), Expires: 09/26/2022 documented as of this encounter Visit Diagnoses Diagnosis Waldenstrom's Macroglobulinemia (HCC) - Primary documented in this encounter
--- OUTSIDE RECORDS SUMMARY | 2022-07-02 09:17 | XMS_ITS | Encounter Summary ---
:1945 Author Organization [facility] Address [address] [place] [id number] Care Team Providers Name Role Phone Unavailable Primary Care Provider Unavailable Encounter Details Date Type Department Care Team Description 03/05/2019 Hospital Department of [facility] Encounter Laboratory Rika Smith M.D. Macroglobulinemia (HCC) Medicine and [address] [place] [address] [facility] [address] [facility] [phone] [place] (Work) [address] [place] [address] [place], [place] (Fax) [phone] Social History Tobacco Use Types Packs/Day [...] the highest level of school Associate degree: [employer] program 03/01/2019 you have completed or the [...] daily. 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 CBC WITH DIFFERENTIAL, Routine 03/05/2019 9:18 [facility] R esults for B AM CDT Macroglobulinemia (HCC) this procedure are in the results section. ASPARTATE Routine 03/05/2019 9:18 [facility] Results for AMINOTRANSFERASE (AST), AM CDT Macroglobulinemia (HCC) this procedure S/P are in the results section. SODIUM, S/P Routine 03/05/2019 9:18 [facility] Results for AM CDT Macroglobulinemia (HCC) this procedure are in the results section. POTASSIUM, S/P Routine 03/05/2019 9:18 [facility] Results f or AM CDT Macroglobulinemia (HCC) this procedure are in the results section. ALKALINE PHOSPHATASE, Routine 03/05/2019 9:18 [facility] Re sults for S/P AM CDT Macroglobulinemia (HCC) this procedure are in the results section. IMMUNOGLOBULIN M (IGM), Routine 03/05/2019 9:18 [facility] Results for S AM CDT Macroglobulinemia (HCC) this procedure are in the results section. CREATININE WITH EGFR, Routine 03/05/2019 9:18 [facility] Re sults for S/P AM CDT Macroglobulinemia (HCC) this procedure are in the results section. BILIRUBIN, TOT, S/P Routine 03/05/2019 9:18 [facility] Resu lts for AM CDT Macroglobulinemia (HCC) this procedure are in the results section. documented in this encounter Results (ABNORMAL) Immunoglobulin M (IgM) (03/05/2019 9:18 AM CDT) [facility] Method Time Signature Immunoglobulin M 1310 (H) 37 - 286 03/05/2019 (IgM), S mg/dL 5:13 PM CDT Specimen Anatomical Collection Method Collection Time Receive d Time (Source) Location / / Volume Laterality Blood (Blood, 03/05/2019 9:18 AM 03/05/20 19 1:27 Venous) CDT PM CDT Rika Cameron M.D. LAB BLOOD ADD-ON Performing Organization Address City/[facility]/ZIP Code Phon e Number [facility] [address] [place] [phone] [facility] Sodium (03/05/2019 9:18 AM CDT) athologist Signature Sodium, S 136 135 - 145 03/05/2019 mmol/L 10:21 AM CDT Specimen Anatomical Collection Method Collection Time Receive d Time (Source) Location / / Volume Laterality Blood (Blood, 03/05/2019 9:18 AM 03/05/20 9:39 Venous) CDT AM CDT Rika Cameron M.D. LAB BLOOD ADD-ON Performing Organization Address [facility]/ZIP Code Phon e Number [facility] - [address] [place] [phone] [facility] Potassium (03/05/2019 9:18 AM CDT) athologist Signature Potassium, S 3.9 3.6 - 5.2 03/05/2019 mmol/L 10:21 AM CDT Specimen Anatomical Collection Method Collection Time Receive d Time (Source) Location / / Volume Laterality Blood (Blood, 03/05/2019 9:18 AM 03/05/20 9:39 Venous) CDT AM CDT Rika Cameron M.D. LAB BLOOD ADD-ON Performing Organization Address City/[facility] Code Phon e Number [facility] - [address] [place] [phone] [facility] (ABNORMAL) Monoclonal Gammopathy Screen (03/05/2019 9:18 AM CDT) Component Value Ref Test Analysis Performed At [facility] Range Method Time Signature Total 6.5 6.3 - 03/05/2019 Protein, S 7.9 g/dL 2:44 PM CDT Institute Free 2.25 (H) 0.3300 - 03/05/2019 Light Chain, 1.94 7:08 PM CDT S mg/dL Lambda Free 0.5970 0.5700 - 03/05/2019 Light Chain, 2.63 4:33 PM CDT S mg/dL Institute/Lambda 3.77 (H) 0.2600 - 03/05/2019 FLC Ratio [...] and its performa nce characteristics determined by [facility] in a manner consistent with CLIA requirements. [...] Address City/State/ZIP Code Phon e Number [facility] [address] [place], [place] [address] [facility] Creatinine with Estimated GFR (03/05/2019 9:18 AM CDT) P athologist Signature Creatinine 0.64 0.59 - 03/05/2019 1.04 mg/dL 10:21 AM CDT eGFR-Non 88 >=60 03/05/2019 Black/ mL/min/BSA 10:21 AM CDT [place] Comment: ----ADDITIONAL INFORMATION---- Estimated GFR calculated using [...] Address City/State/ZIP Code Phon e Number [facility] - [address] [place], [place] [address] [facility] (ABNORMAL) CBC with Differential (03/05/2019 9:18 AM CDT) [facility] Method Time Signature Hemoglobin 12.4 11.6 - [...] M.D. LAB BLOOD ADD-ON Performing Organization Address City/[facility]/ZIP Code Phon e Number [facility] - [address] [place] [phone] [facility] Bilirubin, Total (03/05/2019 9:18 AM CDT) P athologist Signature Bilirubin, 0.5 <=1.2 mg/dL 03/05/2019 Total, S 10:21 AM CDT Specimen Anatomical Collection Method Collection Time Receive d Time (Source) Location / / Volume Laterality Blood (Blood, 03/05/2019 9:18 AM 03/05/20 9:39 Venous) CDT AM CDT Rika Cameron M.D. LAB BLOOD ADD-ON Performing Organization Address City/[facility]/ZIP Code Phon e Number [facility] - [address] [place] [phone] [facility] AST (Aspartate Aminotransferase) (03/05/2019 9:18 AM CDT) [facility] Method Time Signature Aspartate 16 8 - 43 03/05/2019 Aminotransferase U/L 10:21 AM CDT (AST), S Specimen Anatomical Collection Method Collection Time Receive d Time (Source) Location / / Volume Laterality Blood (Blood, 03/05/2019 9:18 AM 03/05/20 19 9:39 Venous) CDT AM CDT Rika Cameron M.D. LAB BLOOD ADD-ON Performing Organization Address City/[facility]/ZIP Code Phon e Number [facility] - [address] [place] [phone] [facility] Alkaline Phosphatase (03/05/2019 9:18 AM CDT) P athologist Signature Alkaline 58 35 - 104 03/05/2019 Phosphatase, S U/L 10:21 AM CDT Specimen Anatomical Collection Method Collection Time Receive d Time (Source) Location / / Volume Laterality Blood (Blood, 03/05/2019 9:18 AM 03/05/20 9:39 Venous) CDT AM CDT Rika Cameron M.D. LAB BLOOD ADD-ON Performing Organization Address City/State/ZIP Code Phon e Number [facility] - [address] [place] [address] [facility] documented in this encounter Visit Diagnoses Diagnosis Wal[facility]strom's Macroglobulinemia (HCC) documented in this encounter
--- OUTSIDE RECORDS SUMMARY | 2022-07-02 09:17 | XMS_ITS | Encounter Summary ---
:1945 Author Organization [facility] Address [address] [place] [address] Care Team Providers Name Role Phone Unavailable Primary Care Provider Unavailable Encounter Details Date Type Department Care Team Description 08/28/2020 Hospital Encounter Department of [facility] Laboratory Medicine Macroglo bulinemia (HCC) and Pathology, [facility], in [place], [place] [address] [place] [address] Social History Tobacco Use Types Packs/Day Years [...] More than 4 times per year 04/09/2022 mormon services? Do you belong to any clubs [...] daily. 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 documented in this encounter Results Electrophoresis, Protein, 24 Hour, Urine (09/09/2020 7:00 AM UTILITY MECHANIC SUPERVISOR) P athologist Signature Total Protein, <142 <229 mg/24 09/10/2020 ED 24 HR, U h 9:12 AM UTILITY MECHANIC SUPERVISOR Comment: ----ADDITIONAL INFORMATION---- On 02/15/2017 the total protein assay me thod changed resulting in approximately a 15% increase in prote in values. Collection Duration 24 h 09/10/2020 7:[address] ED Urine Volume 3550 mL 09/10/2020 7:22 AM UTILITY MECHANIC SUPERVISOR ED Concentration <4 mg/dL 09/10/2020 9:12 AM UTILITY MECHANIC SUPERVISOR SCOTT A Albumin, % 100 % 09/11/2020 4:23 PM UTILITY MECHANIC SUPERVISOR SDSC Impression Albumin is the only protein 09/11/2020 4:23 PM UTILITY MECHANIC SUPERVISOR SDSC detected. Specimen Anatomical Collection Method Collection Time Receive d Time (Source) Location / / Volume Laterality Urine (Urine, 24 09/09/2020 7:00 AM 09/10 7:21 Hours) UTILITY MECHANIC SUPERVISOR AM UTILITY MECHANIC SUPERVISOR Resulting Agency Comment Mailed In Specimen Arturo Ricks M.D. LAB URINE ORDERABLES Performing Organization Address City/State/ZIP Code Phon e Number [facility] [address] [place], [place] [address] [place] [address] [facility] [address] [facility] [place] [address] Laboratory Medicine and Pathology [address] [place] documented in this encounter Visit Diagnoses Diagnosis Waldenstrom's Macroglobulinemia (HCC) documented in this encounter
--- OUTSIDE RECORDS SUMMARY | 2022-07-02 09:17 | XMS_ITS | Encounter Summary ---
:1945 Author Organization [facility] Address [address] [place] [address] Care Team Providers Name Role Phone Unavailable Primary Care Provider Unavailable Reason for Visit Outpatient (Routine) - Closed Specialty Diagnoses / Procedures Referred By Referred To Contact Contact Hematology Oncology Diagnoses [facility]strom's Macroglobulinemia (HCC) Rika Cameron M.D. [address] [place] [address] Referral ID Status Reason Start Date Expiration Date Visits Requ ested Visits Authorized [id number] Closed 09/11/2018 09/11/2019 1 1 Encounter Details Date Type Department Care Team Description 03/05/2019 Office Visit Division of Rika Cameron M.D. [address] [place] [phone] [facility] Hematology in Woo Valdez M.D. Macroglobulinemia (HCC) [facility] (Primary Dx) [place] [address] [place] [phone] Social History Tobacco Use Types Packs/Day Years [...] or relatives? How often do you attend gnosticism or More than 4 times per year 04/09/2022 christianity services? Do you belong to any clubs or Yes 04/09/2022 organizations such as gnosticism groups, unions, fraternal or athletic groups, or [...] the highest level of school Associate degree: [employer] program 03/01/2019 you have completed or the highest degree you have received? Sex Assigned at Date Recorded Female 03/05/2018 7:34 PM CDT documented as of this encounter Last Filed Vital Signs Vital Sign Reading Time Taken Comments Blood Pressure 152/75 03/05/2019 2:16 PM CDT Pulse 65 03/05/2019 2:16 PM CDT Temperature 36.3 ??C (97.3 ??F) 03/05/2019 2:16 PM CDT Respiratory Rate - - Oxygen Saturation - - Inhaled Oxygen Concentration - - Weight 64.7 kg (142 lb 10.2 oz) 03/05/2019 2:16 PM CDT Height 166 cm (5' 5.35) 03/05/2019 2:16 PM CDT Body Mass Index 23.48 03/05/2019 2:16 PM CDT documented in this encounter Progress Notes Woo Valdez M.D. - 03/05/2019 3:00 PM CDT SUBJECTIVE CHIEF COMPLAINT / REASON FOR VISIT Sarah Meyer is a 73 y.o. female who presents for follow up regarding her Waldenstroms macroglobulinemia. HISTORY OF PRESENT ILLNESS 73 year old female who presents with follow up with Waldenstr??m macroglobulinemia. Overall since her follow-up visit 6 months ago the patient is doing well. She reports no vision issues, fevers. She reports that her weakness and exhaustion feel improved from August. She reports no chest pain, shortness of breath no headaches or diarrhea. She does not have any dyspnea on exertion. She has continued seeing a chiropractor locally. Continues to take magnesium supplement and eating a healthy balanced diet with kale and salads. She continues to exercise. ?? Waldenstrom's Macroglobulinemia (HCC) ?? 2001 Initial Diagnosis ? Waldenstrom's Macroglobulinemia (HCC) ? 2001 - 2010 Chemotherapy ? Intermittent Rituxan x10 different series. ? 2011 - 03/07/2012 Chemotherapy ? Dexamethasone + Rituximab + Cyclophosphamide x6 cycles for Waldenstrom Macroglobulinemia ? 11/08/2016 - 01/25/2017 Chemotherapy ? Rituxan-Bendamustine x3 cycles. REVIEW OF SYSTEMS ENT: Positive for difficulty hearing. Cardiovascular: Positive for rapid or fluttering heart beat. Psychiatric/Behavioral: Positive for feeling nervous, anxious, or on edge in past two weeks. The following systems were negative: Constitutional, Skin, Eyes, Respiratory, GI, , Hematologic, Musculoskeletal, Neuro OBJECTIVE PHYSICAL EXAM Constitutional: She is oriented to person, place, and time. She appears well- developed and well-nourished. No distress. HENT: Head: Normocephalic and atraumatic. Eyes: Right eye exhibits no discharge. Left eye exhibits no discharge. No scleral icterus. Cardiovascular: Normal rate, regular rhythm, normal heart sounds and intact distal pulses. She exhibits no edema. Exam reveals no gallop and no friction rub. No murmur heard. Pulmonary/Chest: Effort normal, breath sounds normal and breasts normal. No respiratory distress. She has no wheezes. She has no rales. She exhibits no tenderness. Lymphadenopathy: She has no cervical adenopathy. Neurological: She is alert and oriented to person, place, and time. Skin: Skin is warm and dry. No rash noted. She is not diaphoretic. No erythema. No pallor. ASSESSMENT / PLAN # Waldenstrom's macroglobulinemia Patient's history and initial laboratory studies including CBC, BMP and liver function testing are all very reassuring. She continues to stay active and to eat a balanced diet. Her vision has been stable to improved. We are still awaiting total IgM and results of her serum protein study. However her total protein has come back at 6.5. Down from 7.1 in August of 2018. Discussed with her and encouraged continued balance diet and exercise. She will plan on checking a common blood count locally with her primary care physician. Discussed that if results of her IgM and total serum protein study come back reassuring she can follow up with Hematology in 1 year in the summer. We will be in contact with her regarding her pending lab studies and send out a letter. Recommendations 1. Will continue to await IgM, SPEP results 2. CBC in 6 months with local PCP 3. If lab testing remains stable will plan on follow up in 1 year. Associated attestation - Rika Cameron M.D. - 03/05/2019 5:02 PM CDT This is a supervisory note for Dr. Valdez. I have discussed the evaluation and management plans for Mrs. Sarah Meyer. I agree with the note dated 03/05/19. Patient is doing quite well. We are waitingher full serum protein electrophoresis studies, and I will review them when available in send her a n ote with the final results. As long as the numbers are stable, she can have a CBC done with her local provider in [place] in about 6 months and return to [facility] in about a year to see me. For additional details, please see associated progress note. Rika Cameron M.D. documented in this encounter Plan of Treatment Not on filedocumented as of this encounter Visit Diagnoses Diagnosis Waldenstrom's Macroglobulinemia (HCC) - Primary documented in this encounter
--- OUTSIDE RECORDS SUMMARY | 2022-07-02 09:17 | XMS_ITS | Encounter Summary ---
:1945 Author Organization [facility] Address [address] [place] [address] Care Team Providers Name Role Phone Unavailable Primary Care Provider Unavailable Reason for Visit Reason Onset Date Comments Reschedule 09/08/2018 Automatic Appointmen t Reminder Encounter Details Date Type Department Care Team Description 09/08/2018 Clinical Communication Division of Jenny Cameron Hematology in Rika Smith M.D. ([employer] [place], 200 [facility] Appointment [place], [place] Reminder) [address] [facility] [address] [place], [place] [phone] (Work) [phone] Social History Tobacco Use Types Packs/Day Years [...] or relatives? How often do you attend restorationist or More than 4 times per year 04/09/2022 christianity services? Do you belong to any clubs or Yes 04/09/2022 organizations such as restorationist groups, unions, fraternal or athletic groups, or [...] place to sleep or slept in a fdc (including now)? Sex Assigned at Date Recorded Female 03/05/2018 7:34 PM CDT documented as of this encounter Miscellaneous Notes Telephone Encounter - Casey Urban - 09/08/2018 2:08 PM CST Patient submitted an Automated Appointment Reminder to reschedule appointments. Please contact the patient to determine which appointments to update and reschedule as appropriate. Thank you. 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
--- OUTSIDE RECORDS SUMMARY | 2022-07-02 09:17 | XMS_ITS | Encounter Summary ---
:1945 Author Organization [facility] Address [address] [place] [address] Care Team Providers Name Role Phone Unavailable Primary Care Provider Unavailable Encounter Details Date Type Department Care Team Description 09/11/2018 Hospital Department of CameronA[facility]antrom[facility] Encounter Laboratory Rika Smith M.D. Macroglobulinemia (HCC) Medicine and [address] [place] [address] [facility] [place] [address] [facility] [phone] [place] (Work) [address] [place] [address] [place], [place] (Fax) [phone] Social History Tobacco Use [...] or relatives? How often do you attend episcopal or More than 4 times per year 04/09/2022 hinduism services? Do you belong to any clubs or Yes 04/09/2022 organizations such as episcopal groups, unions, fraternal or athletic groups, or [...] place to sleep or slept in a [place] [facility] [place] (including now)? Sex Assigned at Date Recorded [...] daily. 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) [employer] by [employer] TURMERIC ROOT EXTRACT Take 1 tablet by [...] Name Priority Date/Time Associated Diagnosis Comme nts PROT ELECTROPHORESIS Routine 09/11/2018 7:04 Resu lts for AND ISOTYPE, S AM [employer] this procedur e are in the results section. 25-HYDROXYVITAMIN D2 Routine 09/11/2018 7:04 Waldenstrom's Res ults for AND D3, S AM [employer] Macroglobulinemia (HCC) this procedure are in the results section. CBC WITH DIFFERENTIAL, Routine 09/11/2018 7:04 Waldenstrom's R esults for B AM [employer] Macroglobulinemia (HCC) this procedure are in the results section. ASPARTATE Routine 09/11/2018 7:04 Waldenstrom's Results for AMINOTRANSFERASE (AST), AM [employer] Macroglobulinemia (HCC) this procedure S/P are in the results section. ALKALINE PHOSPHATASE, Routine 09/11/2018 7:04 Wal[facility]strom's Re sults for S/P AM [employer] Macroglobulinemia (HCC) this procedure are in the results section. GLUCOSE, FASTING, S/P Routine 09/11/2018 7:04 Waldenstrom's Re sults for AM [employer] Macroglobulinemia (HCC) this procedure are in the results section. IMMUNOGLOBULIN M (IGM), Routine 09/11/2018 7:04 Waldenstrom's Results for S AM [employer] Macroglobulinemia (HCC) this procedure are in the results section. CREATININE WITH EGFR, Routine 09/11/2018 7:04 Waldenstrom's Re sults for S/P AM [employer] Macroglobulinemia (HCC) this procedure are in the results section. BILIRUBIN, TOT, S/P Routine 09/11/2018 7:04 Waldenstrom's Resu lts for AM [employer] Macroglobulinemia (HCC) this procedure are in the results section. documented in this encounter Results Prot Electrophoresis and Isotype (09/11/2018 7:04 AM [employer]) Component Value Ref Test Analysis Performed At [facility] gist Range Method Time Signature Total 7.1 6.3 - 09/11/2018 [facility] Protein, S 7.9 g/dL 9:12 AM [facility] Albumin 3.6 3.4 - 09/11/2018 [facility] 4.7 g/dL 3:07 PM [facility] Alpha-1 0.3 0.1 - 09/11/2018 [facility] Globulin 0.3 g/dL 3:07 PM [facility] Alpha-2 1.0 0.6 - 09/11/2018 [facility] Globulin 1.0 g/dL 3:07 PM [facility] Beta-Globulin 0.8 0.7 - 09/11/2018 [facility] 1.2 g/dL 3:07 PM [facility] Gamma-Globuli 1.4 0.6 - 09/11/2018 [facility] n 1.6 g/dL 3:07 PM [facility] A/G Ratio 1.02 09/11/2018 [facility] 3:07 PM [facility] M spike 1.2 g/dL 09/11/2018 [facility] 3:07 PM [facility] Impression M-spike in gamma fraction. 09/11/2018 [facility] See Isotype. 3:07 PM [facility] M-protein Monoclonal IgM 09/12/2018 [facility] Isotype kappa.D~Size of 3:30 PM [facility] monoclonal protein [facility] decreased [facility] since 04/26/2017.D~Sug st protein electrophoresis to follow patient rather than isotyping. Comment: ----ADDITIONAL INFORMATION---- The submitted sample was assayed by five separate immunopurifications for IgG, IgA, IgM, kappa and lambda. ??The r esult reflects the findings of either no monoclonal protein detected or those monoclonal immunoglobulins that were detected. This test was developed and its performa nce characteristics determined by [facility] in a manner consistent with CLIA requirements. This test has not been cleared or approved by the [place] d and Drug Administration. Specimen Anatomical Collection Method Collection Time Receive d Time (Source) Location / / Volume Laterality Blood 09/11/2018 7:04 AM 9 8:20 [facility] AM [employer] Rika Cameron M.D. LAB BLOOD ADD-ON Performing Organization Address City/State/ZIP Code Phon e Number [facility] - [address] [place], [place] [address] [facility] 25-Hydroxyvitamin D2 and D3 (09/11/2018 7:04 AM [employer]) athologist Signature 25-Hydroxy D2 <4.0 ng/mL 09/12/2018 [facility] 3:17 PM [facility] [facility] [address] [facility] 25-Hydroxy D3 59 ng/mL 09/12/2018 [facility] 3:17 PM [facility] [employer] [facility] [address] [facility] 25-Hydroxy D 59 ng/mL 09/12/2018 [facility] Total 3:17 PM [facility] [employer] [address] [facility] Comment: Interpretation: 51-80 ng/mL (increased r isk of hypercalciuria) ----REFERENCE VALUE---- 25-HYDROXY D TOTAL (D2+D3) Optimum level s in the healthy population are 20-50, patients with bone disease may benefit from higher levels within this r jean-pierre. ----ADDITIONAL INFORMATION---- This test was developed and its performa nce characteristics determined by [facility] in a manner consistent with CLIA requirements. This test has not been cleared or approved by the [place] d and Drug Administration. Specimen Anatomical Collection Method Collection Time Receive d Time (Source) Location / / Volume Laterality Blood (Blood, 09/11/2018 7:04 AM 09/11/19 Venous) [facility] 10:31 AM [employer] Rika Cameron M.D. LAB BLOOD ADD-ON Performing Organization Address City/[facility]/ZIP Code Phon e Number [facility] [address] [address] [facility] (ABNORMAL) Immunoglobulin M (IgM) (09/11/2018 7:04 AM [employer]) Patholo gist Method Time Signature Immunoglobulin M 1490 (H) 37 - 286 09/11/2018 [facility] (IgM), S mg/dL 11:47 AM [facility] Specimen Anatomical Collection Method Collection Time Receive d Time (Source) Location / / Volume Laterality Blood (Blood, 09/11/2018 7:04 AM 09/11/19 8:20 Venous) [employer] AM [employer] Rika Cameron M.D. LAB BLOOD ADD-ON Performing Organization Address City/State/ZIP Code Phon e Number [facility] - [address] [place] [address] [facility] Glucose, Fasting (09/11/2018 7:04 AM [employer]) P athologist Signature Glucose, P 95 70 - 100 09/11/2018 [facility] mg/dL 8:03 AM [facility] Last Intake 13 hr 09/11/2018 [facility] 7:26 AM [facility] [employer] [facility] Specimen Anatomical Collection Method Collection Time Receive d Time (Source) Location / / Volume Laterality Blood (Blood, 09/11/2018 7:04 AM 09/11/19 7:26 Venous) [employer] AM [employer] Rika Cameron M.D. LAB BLOOD NON ADD-ON Performing Organization Address City/[facility] Code Phon e Number [facility] - [address] [place] [address] [facility] Creatinine with Estimated GFR (09/11/2018 7:04 AM [employer]) Analysis Performed At [facility] logist Time Signature Creatinine 0.72 0.59 - 09/11/2018 [facility] 1.04 mg/dL 8:09 AM [facility]IES - [facility] eGFR-Non 83 >=60 09/11/2018 [facility] Black/ mL/min/BSA 8:09 AM [facility] [facility]ATOR[facility] - [facility] Comment: ----ADDITIONAL INFORMATION---- Estimated GFR calculated using the 2009 CKD_EPI creatinine equation. eGFR-Black/ >90 >=60 mL/min/BSA 09/11/2018 8:09 [facility] [place] AM [employer] [facility] - [facility] Comment: ----ADDITIONAL INFORMATION---- Estimated GFR calculated using the 2009 CKD_EPI creatinine equation. Specimen Anatomical Collection Method Collection Time Receive d Time (Source) Location / / Volume Laterality Blood (Blood, 09/11/2018 7:04 AM 09/11/19 19 7:25 Venous) [employer] AM [employer] Rika Cameron M.D. LAB BLOOD ADD-ON Performing Organization Address City/[facility] Code Phon e Number [facility] - [address] [place] [address] [facility] (ABNORMAL) CBC with Differential (09/11/2018 7:04 AM [employer]) [facility] gist Method Time Signature Hemoglobin 13.3 11.6 - 09/11/2018 [facility] 15.0 g/dL 7:30 AM [facility]ATORIES - [facility] Hematocrit 38.9 35.5 - 09/11/2018 [facility] 44.9 % 7:30 AM [facility] LAB[facility]ATORIES - [facility] Erythrocytes 4.38 3.92 - 09/11/2018 [facility] 5.13 7:30 AM [facility] [employer] LABORATORIES - x10(12)/L [facility] MCV 88.8 78.2 - 09/11/2018 [facility] 97.9 fL 7:30 AM [facility] [employer] [facility]ATORIES - [facility] RBC Distrib 13.4 12.2 - 09/11/2018 [facility] Width 16.1 % 7:30 AM [facility] [facility]ATORIES - [facility] Platelet Count 194 157 - 371 09/11/2018 [facility] x10(9)/L 7:30 AM [facility] [facility]ATORIES - [facility] Leukocytes 2.8 (L) 3.4 - 9.6 09/11/2018 [facility] x10(9)/L 7:30 AM [facility]ATORIES - [facility] Neutrophils 1.96 1.56 - 09/11/2018 [facility] 6.45 7:30 AM [facility] [facility] LABORATORIES - x10(9)/L [facility] Lymphocytes 0.29 (L) 0.95 - 09/11/2018 [facility] 3.07 7:30 AM [facility] [facility] LABORATORIES - x10(9)/L [facility] Monocytes 0.26 0.26 - 09/11/2018 [facility] 0.81 7:30 AM [facility] LABORATORIES - x10(9)/L [facility] Eosinophils 0.24 0.03 - 09/11/2018 [facility] 0.48 7:30 AM [facility] LABORATORIES - x10(9)/L [facility] Basophils <0.03 0.01 - 09/11/2018 [facility] 0.08 7:30 AM [facility] [facility] LABORATORIES - x10(9)/L [facility] Specimen Anatomical Collection Method Collection Time Receive d Time (Source) Location / / Volume Laterality Blood (Blood, 09/11/2018 7:04 AM 09/11/19 7:26 Venous) [employer] AM [employer] Rika Cameron M.D. LAB BLOOD ADD-ON Performing Organization Address City/[facility] Code Phon e Number [facility] - [address] Bilirubin, Total (09/11/2018 7:04 AM [employer]) P athologist Signature Bilirubin, 0.7 <=1.2 09/11/2018 [facility] Total, S mg/dL 8:09 AM [facility] LABORATORIES - [facility] Specimen Anatomical Collection Method Collection Time Receive d Time (Source) Location / / Volume Laterality Blood (Blood, 09/11/2018 7:04 AM 09/11/19 7:25 Venous) [employer] AM [employer] Rika Cameron M.D. LAB BLOOD ADD-ON Performing Organization Address [facility] Phon e Number [facility] - [address] [place] [address] [address] [facility] AST (Aspartate Aminotransferase) (09/11/2018 7:04 AM [employer]) Patholo gist Method Time Signature Aspartate 15 8 - 43 09/11/2018 [facility] Aminotransferase U/L 8:09 AM [facility] LABORATORIE S - (AST), S [facility] Specimen Anatomical Collection Method Collection Time Receive d Time (Source) Location / / Volume Laterality Blood (Blood, 09/11/2018 7:04 AM 09/11/19 19 7:25 Venous) [employer] AM [employer] Rika Cameron M.D. LAB BLOOD ADD-ON Performing Organization Address City/[facility] Phon e Number [facility] - [address] [place] [address] [address] [facility] Alkaline Phosphatase (09/11/2018 7:04 AM [employer]) P athologist Signature Alkaline 62 35 - 104 09/11/2018 [facility] Phosphatase, S U/L 9:24 AM [facility] [facility]ATORIES - [facility] Specimen Anatomical Collection Method Collection Time Receive d Time (Source) Location / / Volume Laterality Blood (Blood, 09/11/2018 7:04 AM 09/11/19 19 7:25 Venous) [employer] AM [employer] Rika Cameron M.D. LAB BLOOD ADD-ON Performing Organization Address City/[facility] Phon e Number [facility] - [address] documented in this encounter Visit Diagnoses Diagnosis Waldenstrom's Macroglobulinemia (HCC) documented in this encounter
--- OUTSIDE RECORDS SUMMARY | 2022-07-02 09:17 | XMS_ITS | Encounter Summary ---
:1945 Author Organization [facility] Address [address] [place] [address] Care Team Providers Name Role Phone Unavailable Primary Care Provider Unavailable Reason for Visit Reason Comments Lab work question Encounter Details Date Type Department Care Team Description 09/04/2020 Clinical Division of [facility]oc[facility] Lab work questi on Communication Hematology in Arturo Ricks [place], M.D. [place] [address] [facility] [address] [place] [phone] Social History Tobacco Use Types Packs/Day Years [...] place to sleep or slept in a halfway (including now)? Education Answer Date Recorded What is the highest level of school Associate degree: ger[employer], 04/02/2020 you have completed or the highest technical, or vocational p nasir degree you have received? Sex Assigned at Date Recorded Female 03/05/2018 7:34 PM CDT documented as of this encounter Miscellaneous Notes Telephone Encounter - Daisy López R.N. - 09/04/2020 10:58 AM CST Phoned patient. She does not need to fast for labs. Patient verbalized understanding. [facility]CE SPECIALIST Telephone Encounter - Mary Majano - 09/04/2020 10:08 AM CST Patient called. She is wondering if she will need to fast for her lab kit collection. Please reach her at: [phone] Thank you, Mary UCE SPECIALIST documented in this encounter Plan of Treatment Not on filedocumented as of this encounter Visit Diagnoses Not on filedocumented in this encounter
--- OUTSIDE RECORDS SUMMARY | 2022-07-02 09:17 | XMS_ITS | Encounter Summary ---
:1945 Author Organization [facility] Address [address] [place] [address] Care Team Providers Name Role Phone Unavailable Primary Care Provider Unavailable Reason for Visit Reason Comments COVID Nurse Line Encounter Details Date Type Department Care Team Description 02/07/2020 Clinical Communication Division of ALVINA Cameron Nurse Rosalie Hematology in Rika Smith M.D. [place], [address] [place], [place] [address] [place] [address] [place], [place] [phone] (Work) [phone] Social History Tobacco Use Types Packs/Day Years [...] or relatives? How often do you attend sabianist or More than 4 times per year 04/09/2022 mandaen services? Do you belong to any clubs or Yes 04/09/2022 organizations such as sabianist groups, unions, fraternal or athletic groups, or [...] encounter Miscellaneous Notes Telephone Encounter - Makenzie Fontanez - 02/07/2020 1:50 PM CDT (Note for [facility] locations only: If the patient states they are asking for testing because attended a protest, villanueva, community cleanup or other mass gathering in the last 7 days and is asking for testing, complete the below questions and transfer to the COVID Nurse Line). Do you have a pending COVID test because you had symptoms or exposure to someone with COVID or you have tested positive for COVID in the last 30 days?no 1. In the past 14 days, do you, anyone in the household, or anyone you have had prolonged exposure have any of the following? a. Fever greater than or equal to 37.8 C (100.0 F)? no New symptoms (Specifically: headache, cough, shortness of breath, respiratory distress, sore throat,diarrhea, nausea, vomiting, chills and repeated shaking with chills, myalgia's (muscle aches), loss of smell, or change or loss of taste sensation)? no b. Had close contact with a patient with known or possible COVID-19 in the last 14 days? no Route reply to:benedicto hem psychic reader Scheduling Contact Number: [phone] documented in this encounter Plan of Treatment Not on filedocumented as of this encounter Visit Diagnoses Not on filedocumented in this encounter
--- OUTSIDE RECORDS SUMMARY | 2022-07-02 09:17 | XMS_ITS | Encounter Summary ---
:1945 Author Organization [facility] Address [address] [place] [address] Care Team Providers Name Role Phone Unavailable Primary Care Provider Unavailable Reason for Visit Reason Comments April 04 appt Encounter Details Date Type Department Care Team Description 04/01/2020 Clinical Communication Division of Rika Cameron 14 appt Hematology in Ana Smith [place], [place] [address] [place] [address] [place] [phone] Social History Tobacco Use Types Packs/Day Years [...] or relatives? How often do you attend holiness or More than 4 times per year 04/09/2022 adventism services? Do you belong to any clubs or Yes 04/09/2022 organizations such as holiness groups, unions, fraternal or athletic groups, or [...] place to sleep or slept in a [facility] (including now)? Education Answer Date Recorded What is the highest level of school Associate degree: [employer] program 03/01/2019 you have completed or the highest degree you have received? Sex Assigned at Date Recorded Female 03/05/2018 7:34 PM CDT documented as of this encounter Miscellaneous Notes Telephone Encounter - Daisy López, RMarcelloN. - 04/01/2020 3:49 PM CDT Sarah had her blood drawn today. Reviewed April [address] Brown. Telephone Encounter - Erika Denise - 04/01/2020 2:44 PM CDT Due to her 's appointments, the earliest she is able to be here on April 04, is 1:00pm. Please let her know if this will not work. She can be reached at [phone]. documented in this encounter Plan of Treatment Not on filedocumented as of this encounter Visit Diagnoses Not on filedocumented in this encounter
--- OUTSIDE RECORDS SUMMARY | 2022-07-02 09:17 | XMS_ITS | Encounter Summary ---
:1945 Author Organization [facility] Address [address] [place] [address] Care Team Providers Name Role Phone Unavailable Primary Care Provider Unavailable Reason for Referral Outpatient (Routine) - Closed Specialty Diagnoses / Procedures Referred By Contact Refer red To Contact Arturo Aleman M.D. [address] [phone] Referral ID Status Reason Start Date Expiration Date Visits Requ ested Visits Authorized [id number] Closed 04/04/2020 04/04/2021 1 1 Reason for Visit Outpatient (Routine) - Closed Specialty Diagnoses / Procedures Referred By Contact Refer red To Contact Hematology Oncology Rika Cameron [place] M.D. [address] [place] [phone] Referral ID Status Reason Start Date Expiration Date Visits Requ ested Visits Authorized [id number] Closed 10/02/2019 10/01/2020 1 1 Encounter Details Date Type Department Care Team Description 04/04/2020 Office Visit Division of [facility] in Arturo Ricks Macroglperez linechristi (HCC) Ana Castillo (Primary Dx) [place] [address] [address] [facility] [address] [place] [phone] Social History Tobacco Use Types Packs/Day [...] or relatives? How often do you attend voodoo or More than 4 times per year 04/09/2022 bahai services? Do you belong to any clubs or Yes 04/09/2022 organizations such as voodoo groups, unions, fraternal or athletic groups, or [...] Sign Reading Time Taken Comments Blood Pressure 148/80 04/04/2020 2:03 PM CDT Pulse 71 04/04/2020 2:03 PM CDT Temperature 36.3 ??C (97.3 ??F) 04/04/2020 2:03 PM CDT Respiratory Rate - - Oxygen Saturation - - Inhaled Oxygen Concentration - - Weight 66.7 kg (147 lb 0.8 oz) 04/04/2020 2:03 PM CDT Height 165.6 cm (5' 5.2) 04/04/2020 2:03 PM CDT Body Mass Index 24.32 04/04/2020 2:03 PM CDT documented in this encounter Progress Notes Arturo Aleman M.D. - 04/04/2020 10:30 AM CDT SUBJECTIVE REFERRING PROVIDER Rika Cameron M.D. REASON FOR VISIT Waldentrom's macroglobulinemia HISTORY OF PRESENT ILLNESS Patient is a 74 y.o. woman with Waldentrom's macroglobulinemia whose hematological history may be summarized as follows: 1. 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 [id number]: Treated with rituximab, intermittently, totaling 10 different series. 3. November 14 to March 07, 2012: Treated with dexamethasone plus rituximab plus cyclophosphamide for 6 cycles. 4. November 08 to January 25, 2017: Treated with rituximab plus bendamustine for 3 cycles. 5. January 2017 to present: Observed without treatment, maintaining partial response. INTERVAL HISTORY Patient returns to the clinic for scheduled follow-up. She was a patient of my colleague Dr. Cameron and her care is now being transition to me. She was last seen in clinic on March 05, 2019. She had aset of labs in August of 2019 for follow-up. Since August there had been no clinical events. On myinterview today she denies any symptoms including fevers, chills, drenching night sweats, unintentional weight loss, pruritus, lymphadenopathy, abdominal pain, cough, shortness of breath, chest pain, peripheral neuropathy, headaches. On a personal note, her was recently diagnosed with Waldentrom's macroglobulinemia himself and has started treatment with bortezomib plus rituximab with local oncologist. REVIEW OF SYSTEMS All systems reviewed and negative except for HPI. OBJECTIVE Vitals: 04/04/20 1403 BP: 148/80 Patient Position: Sitting Pulse: 71 Temp: 36.3 ??C Height: 165.6 cm Weight: 66.7 kg TempSrc: Tympanic Body surface area is [...] Skin: No rash on limited examination. DIAGNOSTICS I have reviewed the recent relevant labs obtained at her local laboratory. They have been added to our EPIC chart. Blood counts are normal, renal function and liver profile normal, LDH is within normallimit for the reference of the laboratory. Paraprotein studies remain stable including a IgM level, M spike, and light chain ratio. ASSESSMENT / PLAN #1 Waldentrom's macroglobulinemia She seems to be maintaining a very good partial response. She is asymptomatic and laboratory resultshave remained stable. There is no evidence of disease progression this time. I am glad she is enjoying a long remission with excellent quality of life. I recommend we continue to monitor her without intervention at this time. We have agreed on a follow-up visit in 1 year from now. However, I would like her to draw labs locally in about 6 months so that we can review via a phone visit. Should there beany new issues or concerns in the meantime she knows how to reach me. Follow-up: Local labs in 6 months followed by a phone call. Return to clinic in 1 year. Education We discussed the diagnosis and treatment plan in detail. The patient expressed understanding of the content. No apparent learning barriers were identified; learning preferences include listening. I personally spent over half of a total 30 minutes face to face with the patient in counseling and discussion and/or coordination of care as described above. Signed by: Soraya Ricks M.D. 04/04/2020 2:33 PM CDT documented in this encounter Plan of Treatment Scheduled Referrals Name Type Priority Associated Diagnoses Order S chedule NonF2F phone Outpatient Referral Routine Expected : visit 10/05/2020, Expires: 2022 documented as of this encounter Visit Diagnoses Diagnosis Waldenstrom's Macroglobulinemia (HCC) - Primary documented in this encounter
--- OUTSIDE RECORDS SUMMARY | 2022-07-02 09:17 | XMS_ITS | Encounter Summary ---
:1945 Author Organization [facility] Address [address] [place] [address] Care Team Providers Name Role Phone Unavailable Primary Care Provider Unavailable Reason for Referral Outpatient (Routine) - Closed Specialty Diagnoses / Procedures Referred By Contact Refer red To Contact Hematology Oncology Judy Aleman [facility] Arturo Mckeon M.D. 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 [address] [phone] Referral ID Status Reason Start Date Expiration Date Visits Requ ested Visits Authorized [id number] Closed 04/04/2020 04/04/2021 1 1 Encounter Details Date Type Department Care Team Description 10/02/2020 [facility] Arturo Ricks Macroglobu linechristi (HCC) Ana Castillo (Primary Dx) [address] [phone] Social History Tobacco Use Types Packs/Day Years [...] More than 4 times per year 04/09/2022 anglican services? Do you belong to any clubs [...] encounter Progress Notes Arturo Aleman M.D. - 10/02/2020 2:00 PM CST Sarah Meyer last appoingment date: April 04, 2020 I personally spent 35 minutes completing extensive medical record review and an extensive phone callwith the patient and/or family member. concerning Sarah Sherly [place] 's Waldentrom's macroglobulinemia. Patient last seen by me on April 04, 2020. No major clinical events in the interim. On July 23, 2020 she underwent surgery for a torn meniscus on the left knee. This was uneventful and she has recovered well. Denies constitutional symptoms such as fevers, chills, drenching night sweats, unintentional weight loss. Reviewed with her results of her lab tests obtained September 09, 2020. Pertinent results include a normal CBC, interval increase in creatinine to 1.09 (compared to 0.4 on March 2020). Stable free lightchains and IgM levels. Stable M spike. No evidence of monoclonal protein on 24 hour urine electrophoresis. From a Waldentrom's standpoint I recommend to continue observation with a repeat visit, [id number], in approximately 6 months. Orders placed. We discussed the elevation of her creatinine and the only contributing factor I could identify from her history is the presence of untreated hypertension. She has a primary care physician who she sees routinely. I asked her to connect with this provider to begin investigation for CKD and looking to starting treatment for hypertension. I offered an appointment at the Nephrology hypertension Clinic here [facility] if he needs a 2nd opinion. I recommended immunization against COVID-19 as soon as available in her community. No further questions at this time. SHOVEL OPERATOR documented in this encounter Plan of Treatment Scheduled Referrals Name Type Priority Associated Order Schedule Diagnoses Hematology office Outpatient Referral Routine Exp ected: visit (clinic) 04/01/2021 (Approximate), Expires: 10/02/2023 documented as of this encounter Results (ABNORMAL) Immunoglobulins (IgG, IgA, and IgM) (04/07/2021 8:04 AM CDT) [facility] gist Method Time Signature Immunoglobulin A 29 (L) 61 - 356 04/07/2021 SDSC (IgA), S mg/dL 10:57 AM CDT Immunoglobulin M 1050 (H) 37 - 286 04/07/2021 SDSC (IgM), S mg/dL 11:26 AM CDT Immunoglobulin G 321 (L) 767 - 04/07/2021 SDSC (IgG), S 1590 10:57 AM CDT mg/dL Specimen Anatomical Collection Method Collection Time Receive d Time (Source) Location / / Volume Laterality Blood (Blood, 04/07/2021 8:04 AM 04/07/20 Venous) CDT 10:21 AM CDT Authorizing Provider Result Sammi Ricsk M.D. LAB BLOOD ADD-ON Performing Organization Address City/[facility]/ZIP Code Phon e Number [facility] [address] [place], [place] [address] [facility] [place] [address] Laboratory Medicine and Pathology [address] [place] Sodium (04/07/2021 8:04 AM CDT) P athologist Signature Sodium, S 137 135 - 145 04/07/2021 9:29 DTL mmol/L AM CDT Specimen Anatomical Collection Method Collection Time Receive d Time (Source) Location / / Volume Laterality Blood (Blood, 04/07/2021 8:04 AM 04/07/20 8:58 Venous) CDT AM CDT Arturo Ricks M.D. LAB BLOOD ADD-ON Performing Organization Address City/State/ZIP Code Phon e Number [facility] - [address] [place], [place] [address] [facility] [place] [address] [facility] [address] Potassium (04/07/2021 8:04 [...] Organization Address City/State/ZIP Code Phon e Number [facility] - [address] [place], [place] [address] [facility] [place] [address] [facility] [address] (ABNORMAL) Monoclonal Gammopathy Monitoring [...] Organization Address City/State/ZIP Code Phon e Number [facility] [address] [place], [place] [address] [facility] [place] [address] Laboratory Medicine and Pathology [address] [place] (ABNORMAL) Immunoglobulin Free Light Chains (04/07/2021 8:04 AM CDT) Analysis Performed At Patho logist Time Signature [place] Free 2.17 (H) 0.3300 - 04/07/2021 SDSC Light Chain, S 1.94 mg/dL 11:18 AM CDT Lambda Free 0.4200 (L) 0.5700 - 04/07/2021 SDSC Light Chain, S 2.63 mg/dL 11:33 AM CDT [place]/Lambda 5.17 (H) 0.2600 - 04/07/2021 [facility] Ratio 1.65 11:33 AM CDT Specimen Anatomical Collection Method Collection Time Receive d Time (Source) Location / / Volume Laterality Blood (Blood, 04/07/2021 8:04 AM 04/07/20 21 Venous) CDT 10:52 AM CDT Arturo Rikcs M.D. LAB BLOOD ADD-ON Performing Organization Address City/State/ZIP Code Phon e Number [facility] [address] [place], [place] [address] SUPPORT CENTER [facility] [place] [address] Laboratory Medicine and Pathology [address] [place] Creatinine with Estimated GFR (04/07/2021 8:04 AM CDT) P athologist Signature Creatinine 0.69 0.59 - 04/07/2021 DTL 1.04 mg/dL 9:29 AM CDT eGFR-Non 85 >=60 04/07/2021 DTL Black/ mL/min/BSA 9:29 AM CDT [place] Comment: ----ADDITIONAL INFORMATION---- Estimated GFR calculated using the 2009 CKD_EPI creatinine equation. eGFR-Black/ >90 >=60 mL/min/BSA 2020 9:29 AM CDT DTL Comment: ----ADDITIONAL INFORMATION---- Estimated GFR calculated using the 2009 CKD_EPI creatinine equation. Specimen Anatomical Collection Method Collection Time Receive d Time (Source) Location / / Volume Laterality Blood (Blood, 04/07/2021 8:04 AM 04/07/20 21 8:58 Venous) CDT AM CDT Arturo Ricks M.D. LAB BLOOD ADD-ON Performing Organization Address City/State/ZIP Code Phon e Number [facility] - [address] [place], [place] [address] [facility] [place] [address] [facility] [address] (ABNORMAL) CBC no call back, reflex T/S HGB <8 (04/07/2021 8:04 AM CDT) Patholo gist Method [...] Blood (Blood, 04/07/2021 8:04 AM 04/07/20 21 8:29 Venous) CDT AM CDT Arturo Ricks M.D. LAB BLOOD NON ADD-ON Performing Organization Address City/State/ZIP Code Phon e Number [facility] - [address] [place], [place] [address] [facility] [place] [address] [facility] [address] Calcium, Total (04/07/2021 8:04 AM CDT) P athologist Signature Calcium, Total, 9.6 8.8 - 10.2 04/07/2021 DTL S mg/dL 9:29 AM CDT Specimen Anatomical Collection Method Collection Time Receive d Time (Source) Location / / Volume Laterality Blood (Blood, 04/07/2021 8:04 AM 04/07/20 8:58 Venous) CDT AM CDT Authorizing Provider Result Sammi Ricks M.D. LAB BLOOD ADD-ON Performing Organization Address City/State/[facility] Phon e Number [facility] - [address] [place], [place] [address] [place] [address] First [facility] AST (Aspartate Aminotransferase) (04/07/2021 8:04 AM CDT) [...] M.D. LAB BLOOD ADD-ON Performing Organization Address City/[facility]/ZIP Code Phon e Number [facility] - 200 [place], [place] [address] [place] [address] [place], [place] [id number] [place] [address] Alkaline Phosphatase (04/07/2021 8:04 AM CDT) P athologist Signature Alkaline 70 35 - 104 04/07/2021 DTL Phosphatase, S U/L 9:29 AM CDT Specimen Anatomical Collection Method Collection Time Receive d Time (Source) Location / / Volume Laterality Blood (Blood, 04/07/2021 8:04 AM 04/07/20 8:58 Venous) CDT AM CDT Authorizing Provider Result Sammi Ricks M.D. LAB BLOOD ADD-ON Performing Organization Address City/State/ZIP Code Phon e Number [facility] - [address] [place], [place] [address] [place] [address] [place], [place] [id number] [place] [address] [place] [address] documented in this encounter Visit Diagnoses Diagnosis Waldenstrom's Macroglobulinemia (HCC) - Primary documented in this encounter
--- OUTSIDE RECORDS SUMMARY | 2022-07-02 09:17 | XMS_ITS | Encounter Summary ---
:1945 Author Organization [facility] Address [address] [place] [address] Care Team Providers Name Role Phone Unavailable Primary Care Provider Unavailable Reason for Visit Reason Comments Intake Assessment Encounter Details Date Type Department Care Team Description 09/29/2020 [facility] Communication Hematology in Arturo Ricks [place], M.D. [address] [place] [phone] Social History Tobacco Use Types Packs/Day Years [...] or relatives? How often do you attend roman catholic or More than 4 times per year 04/09/2022 spiritism services? Do you belong to any clubs or Yes 04/09/2022 organizations such as roman catholic groups, unions, fraternal or athletic groups, or [...] this encounter Miscellaneous Notes Telephone Encounter - Dayami Virgen - 09/29/2020 2:58 PM CST Intake completed 09/29 BOX WIRER documented in this encounter Plan of Treatment Not on filedocumented as of this encounter Visit Diagnoses Not on filedocumented in this encounter
--- OUTSIDE RECORDS SUMMARY | 2022-07-02 09:17 | XMS_ITS | Encounter Summary ---
:1945 Author Organization [facility] Address [address] [place] [address] Care Team Providers Name Role Phone Unavailable Primary Care Provider Unavailable Reason for Visit Reason Comments COVID Inquiry Encounter Details Date Type Department Care Team Description 04/03/2020 Clinical Communication Division of Kevin Ricks , COVID Inquiry Hematology in Arturo Mckeon M.D. [place], [address] [place], [place] [address] [place] [phone] [place], [place] [phone] (Wo rk) [phone] Social History Tobacco Use Types Packs/Day Years [...] this encounter Miscellaneous Notes Telephone Encounter - Deisi Feng - 04/03/2020 9:54 AM CDT ([facility] and [facility] locations only: If the patient is not having symptoms and is requesting COVID-19 Nasal Swab testing only, use the process listed in the COVID-19 Patient Requesting COVID PCR Test OTG COVID-19 [place] Patient Requesting COVID PCR Test). 1. Do you have a pending COVID test because you had symptoms or exposure to someone with COVID or you have tested positive for COVID in the last 30 days? no 2. In the past 14 days, do you, anyone in the household, or anyone you have had prolonged exposure have any of the following? a. Fever greater than or equal to 37.8 C (100.0 F)? no b. New symptoms (Specifically: headache, cough, shortness of breath, respiratory distress, sore throat, diarrhea, nausea, vomiting, chills and repeated shaking with chills, myalgia's (muscle aches), loss of smell, or change or loss of taste sensation)? no c. Had close contact with a patient with known or possible COVID-19 in the last 14 days? no Route reply to: desk 1 Scheduling Contact Number: [phone] documented in this encounter Plan of Treatment Not on filedocumented as of this encounter Visit Diagnoses Not on filedocumented in this encounter
--- OUTSIDE RECORDS SUMMARY | 2022-07-02 09:17 | XMS_ITS | Encounter Summary ---
:1945 Author Organization [facility] Address [address] [place] [address] Care Team Providers Name Role Phone Unavailable Primary Care Provider Unavailable Encounter Details Date Type Department Care Team Description 07/04/2018 Clinical Communication Division of Hematology Rika Cameron in Sarah Castillo M.D. [place] [address] [address] [facility] [address] [place] [phone] Social History Tobacco Use Types Packs/Day Years [...] or relatives? How often do you attend samaritan or More than 4 times per year 04/09/2022 moravian services? Do you belong to any clubs or Yes 04/09/2022 organizations such as samaritan groups, unions, fraternal or athletic groups, or [...] slept in a care home (including now)? Sex Assigned at Date Recorded Female 03/05/2018 7:34 PM CDT documented as of this encounter Miscellaneous Notes Telephone Encounter - Rika Cameron M.D. - 07/04/2018 3:01 PM MISSIONARY COORDINATOR That would be fine, thanks IONARY COORDINATOR documented in this encounter Plan of Treatment Not on filedocumented as of this encounter Visit Diagnoses Not on filedocumented in this encounter
--- OUTSIDE RECORDS SUMMARY | 2022-07-02 09:17 | XMS_ITS | Encounter Summary ---
:1945 Author Organization [facility] Address [address] [place] [address] Care Team Providers Name Role Phone Unavailable Primary Care Provider Unavailable Encounter Details Date Type Department Care Team Description 04/08/2020 Orders Only Division of Daisy L[facility]pez[facility] Hematology in A, R.N. Macroglobulinemia (HCC) [place], [place] [address] [place] [address] (Primary Dx) [address] [place] [phone] Social History Tobacco Use Types Packs/Day Years [...] or relatives? How often do you attend adventist or More than 4 times per year 04/09/2022 synagogue services? Do you belong to any clubs or Yes 04/09/2022 organizations such as adventist groups, unions, fraternal or athletic groups, or [...] or slept in a fdc (including now)? Education Answer Date Recorded What [...]
--- OUTSIDE RECORDS SUMMARY | 2022-07-02 09:18 | XMS_ITS | Encounter Summary ---
:1945 Author Organization [facility] Address [address] [place] [address] Care Team Providers Name Role Phone Elsewhere, Pcp Primary Care Provider Unavailable Encounter Details Date Type Department Care Team Description 09/29/2016 Historical Ophthalmology [facility] Arron Patricio M.D. [address] [place], [place] [phone] (Wo rk) Social History Tobacco Use Types Packs/Day Years Used Date Smoking Tobacco: Never Assessed Alcohol Habits Answer Date Recorded How often [...] or slept in a alf (including now)? Sex Assigned at Date Recorded Female 03/05/2018 7:34 PM CDT documented as of this encounter Progress Notes Arron Patricio M.D. - 09/29/2016 9:10 AM CST Eye General CHIEF COMPLAINT Follow-up left eye lymphoma HISTORY OF PRESENT ILLNESS Blurred vision; left eye; x several years; on and off. Dryness; discomfort; left eye x several years; on and off. Patient notes increased dryness and fluctuating vision in the left eye since last visit. 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 Plan: Get SL photos today or Oct 13. See Dr. Cameron Oct 13 to determine if systemic therapy will be implemented; if not, consider intralesional rituximab. Photo Interpretation: Photos confirm and document clinical findings of diagnosis and are of sufficient quality to permit their use to follow disease progression. #[address] Waldenstrom [address] Cameron. #3 Pseudophakia, left eye Stable #4 Cataract, right eye She is seeing well. Observe. 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
--- OUTSIDE RECORDS SUMMARY | 2022-07-02 09:18 | XMS_ITS | Encounter Summary ---
:1945 Author Organization [facility] Address [address] [place] [address] Care Team Providers Name Role Phone Unavailable Primary Care Provider Unavailable Encounter Details Date Type Department Care Team Description 12/06/2016 Hospital Encounter HX NO MAPPING Social History Tobacco Use Types Packs/Day Years [...] or relatives? How often do you attend restoration or More than 4 times per year 04/09/2022 nondenominational services? Do you belong to any clubs or Yes 04/09/2022 organizations such as restoration groups, unions, fraternal or athletic groups, or [...] Sig Dispensed Refills Start Date End Date cholecalciferol (VITAMIN Take 1 tablet by 0 07/12 D3) 125 mcg (5,000 Unit) mouth daily. tablet multivitamin tablet Take 1 tablet by 0 10/28/2009 04/16/2022 mouth. documented as of this encounter Plan of Treatment Not on filedocumented as of this encounter Visit Diagnoses Not on filedocumented in this encounter
--- OUTSIDE RECORDS SUMMARY | 2022-07-02 09:18 | XMS_ITS | Encounter Summary ---
:1945 Author Organization [facility] Address [address] [place] [address] Care Team Providers Name Role Phone Elsewhere, Pcp Primary Care Provider Unavailable Encounter Details Date Type Department Care Team Description 01/10/2013 Historical Ophthalmology RST OPH Arron Patricio M.D. [address] [place], [place] [phone] (Wo rk) Social History [...] encounter Progress Notes Arron Patricio M.D. - 01/10/2013 9:04 AM CDT Eye General CHIEF COMPLAINT Subconjunctival lymphoma, left eye, recheck HISTORY OF PRESENT ILLNESS pt denies any big changes since her last visit. occasional dryness. uses refresh optive as needed for this. given by her DR at home IMPRESSION / REPORT / PLAN The following tests have been completed and need interpretation. Slit Lamp photos..... 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 Recommend continue observation without biopsy after discussion with her. Recheck 6 months. #[address] Cameron #3 Cataract, both eyes Mild, observe. DIAGNOSIS #1 Subconjunctival lymphoma, left eye #2 Waldenstrom macroglobulinemia #3 Cataract, both eyes CDM Reports - EYEGEN Id: [id number] Status: Fnl documented in this encounter Plan of Treatment Not on filedocumented as of this encounter Visit Diagnoses Not on filedocumented in this encounter Care Teams Ornamental Plasterer Helper Relationship Specialty Start Date End Date Elsewhere, Pcp PCP - General Family Medicine 03/04/21 documented as of this encounter
--- OUTSIDE RECORDS SUMMARY | 2022-07-02 09:18 | XMS_ITS | Encounter Summary ---
:1945 Author Organization [facility] Address [address] [place] [address] Care Team Providers Name Role Phone Unavailable Primary Care Provider Unavailable Encounter Details Date Type Department Care Team Description 02/27/2018 Clinical Communication Division of Hematology Rika Cameron in Sarah Castillo M.D. [place] [address] [facility] [address] [place] [phone] Social History Tobacco Use Types Packs/Day Years Used Date Smoking Tobacco: Never Alcohol Habits Answer Date Recorded [...] or relatives? How often do you attend congregation or More than 4 times per year 04/09/2022 shinto services? Do you belong to any clubs or Yes 04/09/2022 organizations such as congregation groups, unions, fraternal or athletic groups, or [...] or slept in a longterm (including now)? Sex Assigned at Date Recorded Female 03/05/2018 7:34 PM CDT documented as of this encounter Plan of Treatment Not on filedocumented as of this encounter Results (ABNORMAL) Lipid Panel (03/09/2018 8:44 AM CDT) [facility] Method Time Signature Cholesterol, 228 (H) mg/dL 03/09/2018 [facility] Total 9:50 AM CDT [facility] Comment: ----REFERENCE VALUE---- Desirable: < 200 Borderline high: 200 - 239 High: > or = 240 Triglycerides 55 mg/dL 03/09/2018 9:50 AM CDT [facility] Comment: ----REFERENCE VALUE---- Normal: <150 Borderline high: 150-199 High: 200-499 Very high: > or =500 Cholesterol, HDL, S 75 >=50 mg/dL 03/09/2018 9:50 AM [facility] S Calculated LDL 142 (H) mg/dL 03/09/2018 9:50 AM [facility] Comment: ----REFERENCE VALUE---- Desirable: <100 Above Desirable: 100-129 Borderline high: 130-159 High: 160-189 Very high: > or =190 Cholesterol, Non-HDL, 153 mg/dL 03/09/2018 9:5 0 AM CDT [facility] Comment: ----REFERENCE VALUE---- Desirable: <130 Above Desirable: 130-159 Borderline high: 160-189 High: 190-219 Very high: > or =220 Specimen Anatomical Collection Method Collection Time Receive d Time (Source) Location / / Volume Laterality Blood (Blood, 03/09/2018 8:44 AM 03/09/20 18 9:07 Venous) CDT AM CDT Rika Cameron M.D. LAB BLOOD ADD-ON Performing Organization Address City/State/ZIP Code Phon e Number [facility] - [address] [place], [place] [address] [facility] documented in this encounter Visit Diagnoses Diagnosis Hyperlipidemia - Primary documented in this encounter
--- OUTSIDE RECORDS SUMMARY | 2022-07-02 09:18 | XMS_ITS | Encounter Summary ---
:[address] [facility] Address [address] [place] [address] Care Team Providers Name Role Phone Elsewhere, Pcp Primary Care Provider Unavailable Encounter Details Date Type Department Care Team Description 07/12/2013 Historical Ophthalmology RST OPH Arron Patricio M.D. [address] [place], [place] [phone] (Wo rk) Social History [...] or relatives? How often do you attend baptist or More than 4 times per year 04/09/2022 scientologist services? Do you belong to any clubs or Yes 04/09/2022 organizations such as baptist groups, unions, fraternal or athletic groups, or [...] or slept in a intermediate (including now)? Sex Assigned at Date Recorded Female 03/05/2018 7:34 PM CDT documented as of this encounter Progress Notes Arron Patricio M.D. - 07/12/2013 9:09 AM CST Eye General CHIEF COMPLAINT Subconjunctival lymphoma, left eye, recheck HISTORY OF PRESENT ILLNESS No vision changes either eye, constant since December visit. Patient denies ocular pain, floaters or flashing lights. No conjunctiva changes. IMPRESSION / REPORT / PLAN The following tests have been completed and need interpretation. Slit Lamp photos..... stable subconj thickening from before #1 Subconjunctival lymphoma, left eye s/p incisional biopsy. s/p 6 cycles of chemo (last in February 2012) Overall has improved from September 2011; still has residual subconjunctival thickening which might represent infiltration.....discussed again and can only prove with biopsy. Plan: Discussed, and OK to observe for now unless changing/growing. She is getting systemic evaluation today. Recheck in 9 months with SL photos then. #[address] Cameron #3 Cataract, both eyes Mild, observe. DIAGNOSIS #1 Subconjunctival lymphoma, left eye #2 Waldenstrom macroglobulinemia #3 Cataract, both eyes CDM Reports - EYEGEN Id: [id number] Status: Fnl documented in this encounter Plan of Treatment Not on filedocumented as of this encounter Visit Diagnoses Not on filedocumented in this encounter Care Teams Operations Intelligence Relationship Specialty Start Date End Date Elsewhere, Pcp PCP - General Family Medicine 03/04/21 documented as of this encounter
--- OUTSIDE RECORDS SUMMARY | 2022-07-02 09:18 | XMS_ITS | Encounter Summary ---
:1945 Author Organization [facility] Address [address] [place] [address] Care Team Providers Name Role Phone Unavailable Primary Care Provider Unavailable Reason for Visit Reason Onset Date Comments Outside labs 12/28/2017 Encounter Details Date Type Department Care Team Description 12/28/2017 Clinical Communication Division of Rika Cameron [facility] Hematology in [place], [place] [address] [place] [address] [address] [place] [phone] Social History Tobacco Use Types Packs/Day Years [...] or relatives? How often do you attend evangelical or More than 4 times per year 04/09/2022 mandaen services? Do you belong to any clubs or Yes 04/09/2022 organizations such as evangelical groups, unions, fraternal or athletic groups, or [...] or slept in a fpc (including now)? Sex Assigned at Date Recorded Female 03/05/2018 7:34 PM CDT documented as of this encounter Miscellaneous Notes Telephone Encounter - Mary Lam - 12/28/2017 9:11 AM CDT Outside labs from 12/27/17 received. The fax has been placed in the eFax folder, and the CBC results are as noted below. Hemoglobin: 11.9 Hematocrit: 35.9 WBC: 3.16 ANC: 2.14 Platelets: 226 documented in this encounter Plan of Treatment Not on filedocumented as of this encounter Visit Diagnoses Not on filedocumented in this encounter
--- OUTSIDE RECORDS SUMMARY | 2022-07-02 09:18 | XMS_ITS | Encounter Summary ---
:1945 Author Organization [facility] Address [address] [place] [address] Care Team Providers Name Role Phone Unavailable Primary Care Provider Unavailable Encounter Details Date Type Department Care Team Description 05/16/2017 Telemedicine Department of Ophthalmology Social History Tobacco Use [...] or relatives? How often do you attend anabaptist or More than 4 times per year 04/09/2022 hindu services? Do you belong to any clubs or Yes 04/09/2022 organizations such as anabaptist groups, unions, fraternal or athletic groups, or [...] or slept in a retirement (including now)? Sex Assigned at Date Recorded Female 03/05/2018 7:34 PM CDT documented as of this encounter Plan of Treatment Not on filedocumented as of this encounter Procedures Procedure Name Priority Date/Time Associated Comments Diagnosis OPHTHALMOLOGY IMAGE Routine 05/16/2017 12:00 Resu lts for this EXAM PM CDT procedure are i n the results section. documented in this encounter Results OPHTHALMOLOGY IMAGE EXAM (05/16/2017 12:00 PM CDT) Specimen (Source) Anatomical Collection Method Collection Time Re ceived Time Location / / Volume Laterality 05/16/2017 12:00 PM CDT Narrative [facility] - 05/16/2017 3:10 PM CDT This order has been created [...]
--- OUTSIDE RECORDS SUMMARY | 2022-07-02 09:18 | XMS_ITS | Encounter Summary ---
:1945 Author Organization [facility] Address [address] [place] [address] Care Team Providers Name Role Phone Elsewhere, Pcp Primary Care Provider Unavailable Encounter Details Date Type Department Care Team Description 11/14/2014 Historical Ophthalmology RST OPH Arron Patricio M.D. [address] [place], [place] [phone] (Wo rk) Social History [...] or relatives? How often do you attend mormon or More than 4 times per year 04/09/2022 muslim services? Do you belong to any clubs or Yes 04/09/2022 organizations such as mormon groups, unions, fraternal or athletic groups, or [...] or slept in a fci (including now)? Sex Assigned at Date Recorded Female 03/05/2018 7:34 PM CDT documented as of this encounter Progress Notes Arron Patricio M.D. - 11/14/2014 7:28 AM CDT Eye General CHIEF COMPLAINT s/p IOL left eye HISTORY OF PRESENT ILLNESS Patient denies ocular pain. Vision improved. IMPRESSION / REPORT / PLAN #1 Subconjunctival lymphoma, left eye s/p incisional biopsy 09/2011 s/p 6 cycles of chemo (last in February 2012) s/p repeat biopsy 10/2014......showed lymphoma Systemic workup pending next month. Consider intralesional treatment if isolated to eye, ?rituxan. Will await Dr. Cameron's thoughts. #2 Waldenstrom [address] Cameron. #3 s/p Cataract surgery with intraocular lens implant, left eye. Doing well. Discontinue all postoperative drops. Spectacle prescription given. DIAGNOSIS #1 Subconjunctival lymphoma, left eye #2 Waldenstrom macroglobulinemia #3 s/p Cataract surgery with intraocular lens implant, left eye. CD Reports - EYEGEN Id: [id number] Status: Fnl documented in this encounter Plan of Treatment Not on filedocumented as of this encounter Visit Diagnoses Not on filedocumented in this encounter Care Teams Chief Of Vital Statistics Relationship Specialty Start Date End Date Elsewhere, Pcp PCP - General Family Medicine 03/04/21 documented as of this encounter
--- OUTSIDE RECORDS SUMMARY | 2022-07-02 09:18 | XMS_ITS | Encounter Summary ---
:1945 Author Organization [facility] Address [address] [place] [address] Care Team Providers Name Role Phone Elsewhere, Pcp Primary Care Provider Unavailable Encounter Details Date Type Department Care Team Description 04/15/2014 Historical Ophthalmology RST OPH Arron Patricio M.D. [address] [place], [place] [phone] (Wo rk) Social History [...] or relatives? How often do you attend latter-day or More than 4 times per year 04/09/2022 taoist services? Do you belong to any clubs or Yes 04/09/2022 organizations such as latter-day groups, unions, fraternal or athletic groups, or [...] encounter Progress Notes Arron Patricio M.D. - 04/15/2014 1:33 PM CDT Eye General CHIEF COMPLAINT Subconjunctival lymphoma, left eye, recheck HISTORY OF PRESENT ILLNESS Blurred vision; left eye; x 9 months; slowly progressive; symptoms are moderate. Feels the eye gets more tired when on the computer. Reading has gotten more difficult. Is not notingan increase in glare or halos. IMPRESSION / REPORT / PLAN The following tests have been completed and need interpretation. Slit Lamp photos....Photo Interpretation: Photos confirm and document clinical findings of diagnosis and are of sufficient quality to permit their use to follow disease progression. #1 Subconjunctival lymphoma, left eye s/p incisional biopsy. s/p 6 cycles of chemo (last in February 2012) Overall has improved from September 2011; still has residual subconjunctival thickening which might represent infiltration.....discussed again and can only prove with biopsy. Plan: Discussed, and continue to observe for now unless #2 Waldenstrom [address] Cameron. Systemically is stable #3 Cataract, left>right eye Mild, observe for now, though could consider surgery OS when bothers.....consider combining with conj biopsy OS. Recheck in 6 months. DIAGNOSIS #1 Subconjunctival lymphoma, left eye #2 Waldenstrom macroglobulinemia #3 Cataract, left>right eye CDM Reports - EYEGEN Id: [id number] Status: Fnl documented in this encounter Plan of Treatment Not on filedocumented as of this encounter Visit Diagnoses Not on filedocumented in this encounter Care Teams Clothes Marker Relationship Specialty Start Date End Date Elsewhere, Pcp PCP - General Family Medicine 03/04/21 documented as of this encounter
--- OUTSIDE RECORDS SUMMARY | 2022-07-02 09:18 | XMS_ITS | Encounter Summary ---
:1945 Author Organization [facility] Address [address] [place] [id number] Care Team Providers Name Role Phone Unavailable Primary Care Provider Unavailable Encounter Details Date Type Department Care Team Description 03/09/2018 Hospital Department of Cameron, Waldenstrom's Macroglobulinemia (HCC); Encounter Laboratory Rika Smith M.D. Hyperlipidemia Medicine and [address] [place] [address], [place] [phone] [facility] [phone] [place] (Work) [address] [place] [address] [place], [place] (Fax) [phone] Social History Tobacco Use [...] daily. 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 DIETARY SUPPLEMENT Take by mouth daily. 0 [...] Name Priority Date/Time Associated Diagnosis Comme nts GLUCOSE, FASTING, S/P Routine 03/09/2018 8:45 Waldenstrom's Re sults for AM CDT Macroglobulinemia (HCC) this procedure are in the results section. LIPID PANEL, S Routine 03/09/2018 8:44 Hyperlipidemia Results for AM CDT this procedure are in the results section. MONOCLONAL PROTEIN Routine 03/09/2018 8:44 Waldenstrom's Resul ts for STUDY, S AM CDT Macroglobulinemia (HCC) this procedure are in the results section. CBC WITH DIFFERENTIAL, Routine 03/09/2018 8:44 Waldenstrom's R esults for B AM CDT Macroglobulinemia (HCC) this procedure are in the results section. ASPARTATE Routine 03/09/2018 8:44 Waldenstrom's Results for AMINOTRANSFERASE (AST), AM CDT Macroglobulinemia (HCC) this procedure S/P are in the results section. SODIUM, S/P Routine 03/09/2018 8:44 Waldenstrom's Results for AM CDT Macroglobulinemia (HCC) this procedure are in the results section. POTASSIUM, S/P Routine 03/09/2018 8:44 Waldenstrom's Results f or AM CDT Macroglobulinemia (HCC) this procedure are in the results section. ALKALINE PHOSPHATASE, Routine 03/09/2018 8:44 Waldenstrom's Re sults for S/P AM CDT Macroglobulinemia (HCC) this procedure are in the results section. IMMUNOGLOBULIN M (IGM), Routine 03/09/2018 8:44 Waldenstrom's Results for S AM CDT Macroglobulinemia (HCC) this procedure are in the results section. CREATININE WITH EGFR, Routine 03/09/2018 8:44 Waldenstrom's Re sults for S/P AM CDT Macroglobulinemia (HCC) this procedure are in the results section. BILIRUBIN, TOT, S/P Routine 03/09/2018 8:44 Waldenstrom's Resu lts for AM CDT Macroglobulinemia (HCC) this procedure are in the results section. documented in this encounter Results Glucose, Fasting (03/09/2018 8:45 AM CDT) P athologist Signature Glucose, P 85 70 - 100 03/09/2018 [facility] mg/dL 9:41 AM CDT [facility] Last Intake 13 hr 03/09/2018 [facility] 9:08 AM CDT [facility] Specimen Anatomical Collection Method Collection Time Receive d Time (Source) Location / / Volume Laterality Blood 03/09/2018 8:45 AM 8 9:08 CDT AM CDT Rika Cameron M.D. LAB BLOOD NON ADD-ON Performing Organization Address City/State/ZIP Code Phon e Number [facility] LABORATORIES - [address] [place] [address] 05 [facility] (ABNORMAL) Lipid Panel (03/09/2018 8:44 AM CDT) Patholo gist Method Time Signature Cholesterol, 228 (H) mg/dL 03/09/2018 [facility] Total 9:50 AM CDT [facility] Comment: ----REFERENCE VALUE---- Desirable: < 200 Borderline high: 200 - 239 High: > or = 240 Triglycerides 55 mg/dL 03/09/2018 9:50 AM CDT [facility] [place] Comment: ----REFERENCE VALUE---- Normal: <150 Borderline high: 150-199 High: 200-499 Very high: > or =500 Cholesterol, HDL, S 75 >=50 mg/dL 03/09/2018 9:50 AM [facility] Calculated LDL 142 (H) mg/dL 03/09/2018 9:50 AM [facility] Comment: ----REFERENCE VALUE---- Desirable: <100 Above Desirable: 100-129 Borderline high: 130-159 High: 160-189 Very high: > or =190 Cholesterol, Non-HDL, 153 mg/dL 03/09/2018 9:5 0 AM CDT [facility] [place] [facility] Comment: ----REFERENCE VALUE---- Desirable: <130 Above Desirable: 130-159 Borderline high: 160-189 High: 190-219 Very high: > or =220 Specimen Anatomical Collection Method Collection Time Receive d Time (Source) Location / / Volume Laterality Blood (Blood, 03/09/2018 8:44 AM 03/09/20 18 9:07 Venous) CDT AM CDT Rika Cameron M.D. LAB BLOOD ADD-ON Performing Organization Address City/State/ZIP Code Phon e Number [facility] LABORATORIES - [address] [place] [address] 05 [facility] Sodium (03/09/2018 8:44 AM CDT) P athologist Signature Sodium, S 138 135 - 145 03/09/2018 [facility] mmol/L 9:51 AM CDT [facility] Specimen Anatomical Collection Method Collection Time Receive d Time (Source) Location / / Volume Laterality Blood 03/09/2018 8:44 AM 8 9:07 CDT AM CDT Rika Cameron M.D. LAB BLOOD ADD-ON Performing Organization Address City/State/ZIP Code Phon e Number [facility]IES - [address] [place] [address] [facility] Potassium (03/09/2018 8:44 AM CDT) P athologist Signature Potassium, S 4.0 3.6 - 5.2 03/09/2018 [facility] mmol/L 9:51 AM CDT LABORATORIES - [facility] Specimen Anatomical Collection Method Collection Time Receive d Time (Source) Location / / Volume Laterality Blood 03/09/2018 8:44 AM 8 9:07 CDT AM CDT Rika Cameron M.D. LAB BLOOD ADD-ON Performing Organization Address City/[facility] Phon e Number [facility]IES - [address] [place] [address] [facility] Monoclonal Protein Study (03/09/2018 8:44 AM CDT) Component Value Ref Test Analysis Performed At Patholo gist Range Method Time Signature Total Protein, S 7.1 6.3 - 03/09/2018 [facility] 7.9 10:34 AM LABORATORIES - g/dL CDT [facility] Albumin 3.4 3.4 - 03/09/2018 [facility] 4.7 3:28 PM LABORATORIES - g/dL CDT [facility] Alpha-1 Globulin 0.3 0.1 - 03/09/2018 [facility] 0.3 3:28 PM LABORATORIES - g/dL CDT [facility] Alpha-2 Globulin 1.0 0.6 - 03/09/2018 [facility] 1.0 3:28 PM LABORATORIES - g/dL CDT [facility] Beta-Globulin 0.8 0.7 - 03/09/2018 [facility] 1.2 3:28 PM LABORATORIES - g/dL CDT [facility] Gamma-Globulin 1.5 0.6 - 03/09/2018 [facility] 1.6 3:28 PM LABORATORIES - g/dL CDT [facility] A/G Ratio 0.92 03/09/2018 [facility] 3:28 PM LABORATORIES - CDT [facility] M spike 1.4 g/dL 03/09/2018 [facility] 3:28 PM LABORATORIES - CDT [facility] Impression M-spike in gamma fraction. 03/09/2018 [facility] See Immunofixation. 3:28 PM LABORATORI ES - CDT [facility] Immunofixation Monoclonal IgM kappa. 03/10/2018 [facility] Size of monoclonal protein not changed significantly s andria 11/18/2017. 1:39 PM LABORATORIES - Suggest protein electrophoresis only to follow the patient rather than CDT [facility] immunofixation. JARRATT Specimen Anatomical Collection Method Collection Time Receive d Time (Source) Location / / Volume Laterality Blood 03/09/2018 8:44 AM 8 9:37 CDT AM CDT Rika Cameron M.D. LAB BLOOD ADD-ON Performing Organization Address City/[facility]/ZIP Code Phon e Number [facility]IES - [address] [place] [address] [facility] (ABNORMAL) Immunoglobulin M (IgM) (03/09/2018 8:44 AM CDT) Patholo gist Method Time Signature Immunoglobulin M 1800 (H) 37 - 286 03/09/2018 [facility] (IgM), S mg/dL 12:20 PM LABORATORIES - CDT [facility] Specimen Anatomical Collection Method Collection Time Receive d Time (Source) Location / / Volume Laterality Blood 03/09/2018 8:44 AM 8 9:37 CDT AM CDT Rika Cameron M.D. LAB BLOOD ADD-ON Performing Organization Address City/[facility]/ZIP Code Phon e Number [facility]IES - [address] [place] [address] [facility] Creatinine with Estimated GFR (MDRD) (03/09/2018 8:44 AM CDT) Analysis Performed At Path logist Time Signature Creatinine 0.74 0.59 - 03/09/2018 [facility] 1.04 mg/dL 9:51 AM CDT LABORATORIES - [facility] eGFR-Non 81 >=60 03/09/2018 [facility] Black/ mL/min/BSA 9:51 AM CDT LABORATORIES - [facility] Comment: ----ADDITIONAL INFORMATION---- Estimated GFR calculated using the 2009 CKD_EPI creatinine equation. eGFR-Black/ >90 >=60 mL/min/BSA 03/09/2018 9:51 [facility] South African AM CDT LABORATORIES - [facility] Comment: ----ADDITIONAL INFORMATION---- Estimated GFR calculated using the 2009 CKD_EPI creatinine equation. Specimen Anatomical Collection Method Collection Time Receive d Time (Source) Location / / Volume Laterality Blood 03/09/2018 8:44 AM 8 9:07 CDT AM CDT Rika Cameron M.D. LAB BLOOD ADD-ON Performing Organization Address City/State/ZIP Code Phon e Number [facility] LABORATORIES - [address] [place], [place] [address] [facility] (ABNORMAL) CBC with Differential (03/09/2018 8:44 AM CDT) [facility] gist Method Time Signature Hemoglobin 12.6 11.6 - 03/09/2018 [facility] 15.0 g/dL 9:30 AM CDT LABORATORIES - [facility] Hematocrit 37.7 35.5 - 03/09/2018 [facility] 44.9 % 9:30 AM CDT LABORATORIES - [facility] Erythrocytes 4.27 3.92 - 03/09/2018 [facility] 5.13 9:30 AM CDT LABORATORIES - x10(12)/L [facility] MCV 88.3 78.2 - 03/09/2018 [facility] 97.9 fL 9:30 AM CDT LABORATORIES - [facility] RBC Distrib 13.8 12.2 - 03/09/2018 [facility] Width 16.1 % 9:30 AM CDT LABORATORIES - [facility] Platelet Count 205 157 - 371 03/09/2018 [facility] x10(9)/L 9:30 AM CDT LABORATORIES - [facility] Leukocytes 2.9 (L) 3.4 - 9.6 03/09/2018 [facility] x10(9)/L 9:30 AM CDT LABORATORIES - [facility] Neutrophils 1.94 1.56 - 03/09/2018 [facility] 6.45 9:30 AM CDT LABORATORIES - x10(9)/L [facility] Lymphocytes 0.30 (L) 0.95 - 03/09/2018 [facility] 3.07 9:30 AM CDT LABORATORIES - x10(9)/L [facility] Monocytes 0.32 0.26 - 03/09/2018 [facility] 0.81 9:30 AM CDT LABORATORIES - x10(9)/L [facility] Eosinophils 0.36 0.03 - 03/09/2018 [facility] 0.48 9:30 AM CDT LABORATORIES - x10(9)/L [facility] Basophils <0.03 0.01 - 03/09/2018 [facility] 0.08 9:30 AM CDT LABORATORIES - x10(9)/L [facility] Specimen Anatomical Collection Method Collection Time Receive d Time (Source) Location / / Volume Laterality Blood 03/09/2018 8:44 AM 8 9:08 CDT AM CDT Rika Cameron M.D. LAB BLOOD ADD-ON Performing Organization Address City/State/ZIP Code Phon e Number [facility] LABORATORIES - [address] [place] [address] [facility] Bilirubin, Total (03/09/2018 8:44 AM CDT) P athologist Signature Bilirubin, 0.8 <=1.2 03/09/2018 [facility] Total, S mg/dL 9:51 AM CDT LABORATORIES - [facility] Specimen Anatomical Collection Method Collection Time Receive d Time (Source) Location / / Volume Laterality Blood 03/09/2018 8:44 AM 8 9:07 CDT AM CDT Rika Cameron M.D. LAB BLOOD ADD-ON Performing Organization Address City/State/ZIP Code Phon e Number [facility]IES - [address] [place] [address] [facility] AST (Aspartate Aminotransferase) (03/09/2018 8:44 AM CDT) Patholo gist Method Time Signature Aspartate 15 8 - 43 03/09/2018 [facility] Aminotransferase U/L 9:51 AM CDT LABORATORIE S - (AST), S [facility] Specimen Anatomical Collection Method Collection Time Receive d Time (Source) Location / / Volume Laterality Blood 03/09/2018 8:44 AM 8 9:07 CDT AM CDT Rika Cameron M.D. LAB BLOOD ADD-ON Performing Organization Address City/State/ZIP Code Phon e Number [facility]IES - [address] [place] [address] [facility] Alkaline Phosphatase (03/09/2018 8:44 AM CDT) P athologist Signature Alkaline 57 55 - 142 03/09/2018 [facility] Phosphatase, S U/L 9:51 AM CDT LABORATORIES - [facility] Specimen Anatomical Collection Method Collection Time Receive d Time (Source) Location / / Volume Laterality Blood 03/09/2018 8:44 AM 8 9:07 CDT AM CDT Rika Cameron M.D. LAB BLOOD ADD-ON Performing Organization Address City/State/ZIP Code Phon e Number [facility] LABORATORIES - [address] [place], [place] [address] [facility] documented in this encounter Visit Diagnoses Diagnosis Waldenstrom's Macroglobulinemia (HCC) Hyperlipidemia documented in this encounter
--- OUTSIDE RECORDS SUMMARY | 2022-07-02 09:18 | XMS_ITS | Encounter Summary ---
:1945 Author Organization [facility] Address [address] [place] [address] Care Team Providers Name Role Phone Unavailable Primary Care Provider Unavailable Reason for Referral Outpatient (Routine) - Closed Specialty Diagnoses / Procedures Referred By Contact Refer red To Contact Hematology Oncology Rika Cameron [place] M.D. [address] [place] [address] Referral ID Status Reason Start Date Expiration Date Visits Requ ested Visits Authorized [id number] Closed 03/09/2018 03/09/2019 1 1 Reason for Visit Outpatient (Routine) - Closed Specialty Diagnoses / Procedures Referred By Referred To Contact Contact Hematology Oncology Diagnoses Waldenstrom's Macroglobulinemia (HCC) Rika aCmeron M.D. [address] [place] [address] Referral ID Status Reason Start Date Expiration Date Visits Requ ested Visits Authorized [id number] Closed 12/09/2017 06/07/2018 1 1 Encounter Details Date Type Department Care Team Description 03/09/2018 Office Visit Division of Sumit Cameron (Primar y Dx); Hematology in Rika Smith M.D. Waldenstrom's Macroglobulinemia (HCC) [place], [place] [address] [facility] [address] [place] [phone] Social History Tobacco Use Types Packs/Day Years [...] or relatives? How often do you attend mormonism or More than 4 times per year 04/09/2022 jainism services? Do you belong to any clubs or Yes 04/09/2022 organizations such as mormonism groups, unions, fraternal or athletic groups, or [...] Sign Reading Time Taken Comments Blood Pressure 140/73 03/09/2018 1:50 PM CDT Pulse 61 03/09/2018 1:50 PM CDT Temperature 36 ??C (96.8 ??F) 03/09/2018 1:50 PM CDT Respiratory Rate - - Oxygen Saturation - - Inhaled Oxygen Concentration - - Weight 68.6 kg (151 lb 5.5 oz) 03/09/2018 1:50 PM CDT Height 167 cm (5' 5.75) 03/09/2018 1:50 PM CDT Body Mass Index 24.62 03/09/2018 1:50 PM CDT documented in this encounter Progress Notes Rika Cameron M.D. - 03/09/2018 2:00 PM CDT SUBJECTIVE REASON FOR VISIT Follow-up Waldenstrom's macroglobulinemia HISTORY OF PRESENT ILLNESS Sarah Meyer is a 72 y.o. year old female who presents today for follow-up of Waldenstrom's macroglobulinemia. Her hematological history is listed below. Patient is doing well, in general. She denies lymphadenopathy, fevers, unexplained weight loss, and drenching night sweats. The history is significant for significant fatigue over the last week, which is better today. She has not had any symptoms of infection. Patient and her have been alternating spending nights with the patient elderly [id number], which may contribute to her fatigue. Otherwise, she notes that the vision in her left eye is not as sharp as it use to be. The eyelid has notchanged significantly, but she describes seeing as if there is a smudge on her glasses at times. Shecalled to see Dr. Patricio today, but he was unable to fit her in. She is exploring the option of seeing his colleague in [place], [place] which would be closer her home. She also states that she had breast tomosynthesis done in [place]. There was a slight abnormalitynoted in the outer quadrant of the left breast. Followup done 3 months later showed stability. She has not noted any palpable abnormalities in this region. [facility] the near future. Waldenstrom's Macroglobulinemia (HCC) 2002 Initial Diagnosis Waldenstrom's [...] history and problem list. REVIEW OF SYSTEMS The following systems were negative: Constitutional, Skin, Eyes, ENT, CV, Respiratory, GI, , Hematologic, Musculoskeletal, Neuro, Psych OBJECTIVE Vitals: 03/09/18 1350 BP: 140/73 Patient Position: Sitting Pulse: 61 Temp: 36 ??C Height: 167 cm Weight: 68.6 kg TempSrc: Tympanic Body surface area is 1.78 meters squared. PHYSICAL EXAM Constitutional: She is oriented to person, place, and time. She appears well- developed and well-nourished. Cardiovascular: Normal rate, regular rhythm and normal [...] is normal. Judgment and thought content normal. Vitals reviewed. DIAGNOSTICS I have reviewed the recent relevant labs. No results found. Recent Results (from the past 72 hour(s)) Alkaline Phosphatase Collection Time: 03/09/18 8:44 AM Result Value Alkaline Phosphatase, S 57 AST (Aspartate Aminotransferase) Collection Time: 03/09/18 8:44 AM Result Value Aspartate Aminotransferase (AST), S 15 Bilirubin, Total Collection Time: 03/09/18 8:44 AM Result Value Bilirubin, Total, S 0.8 CBC with Differential Collection Time: 03/09/18 8:44 AM Result Value Hemoglobin 12.6 Hematocrit 37.7 Erythrocytes 4.27 MCV 88.3 RBC Distrib Width 13.8 Platelet Count 205 Leukocytes 2.9 (L) Neutrophils 1.94 Lymphocytes 0.30 (L) Monocytes 0.32 Eosinophils 0.36 Basophils <0.03 Creatinine with Estimated GFR (MDRD) Collection Time: 03/09/18 8:44 AM Result Value Creatinine, S 0.74 eGFR-Non Black 81 eGFR-Black >90 Immunoglobulin M (IgM) Collection Time: 03/09/18 8:44 AM Result Value Immunoglobulin M (IgM), S 1800 (H) Potassium Collection Time: 03/09/18 8:44 AM Result Value Potassium, S 4.0 Sodium Collection Time: 03/09/18 8:44 AM Result Value Sodium, S 138 Lipid Panel Collection Time: 03/09/18 8:44 AM Result Value Cholesterol, Total, S 228 (H) Triglycerides, S 55 Cholesterol, HDL, S 75 Calculated LDL 142 (H) Non HDL Cholesterol 153 Glucose, Fasting Collection Time: 03/09/18 8:45 AM Result Value Glucose, P 85 Last Intake 13 ASSESSMENT / PLAN #1 Waldenstrom's Macroglobulinemia (HCC) Overall, patient is doing well. The IgM is 1800, which is improved compared to 3 months ago. In addition, hemoglobin and platelets are normal, and leukocytes are much improved compared to 3 months ago.We will continue to monitor her at regular intervals. #2 Fatigue I suspect this was related to poor sleep patterns in recent weeks as results of watching her elderlymother in law, versus an infectious virus. However, I will send her down for additional laboratory studies to be certain there are no other abnormalities. I will let her know these results in follow-up. Follow-up: Return to clinic in 6 months [...] described above. Signed by: Rika Cameron M.D. 03/09/2018 2:39 PM documented in this encounter Plan of Treatment Scheduled Referrals Name Type Priority Associated Order Schedule Diagnoses Hematology office Outpatient Referral Routine Exp ected: visit (clinic) 09/09/2018 (Approximate), Expires: 03/09/2021 documented as of this encounter Results 25-Hydroxyvitamin D2 and D3 (09/11/2018 7:04 AM RN FACULTY) P athologist Signature 25-Hydroxy D2 <4.0 ng/mL 09/12/[address] [facility] 3:17 PM RN FACULTY [address] [facility] 25-Hydroxy D3 59 ng/mL 09/12/[address] [facility] 3:17 PM RN FACULTY [address] [facility] 25-Hydroxy D 59 ng/mL 09/12/[address] [facility] Total 3:17 PM RN FACULTY [address] [facility] Comment: Interpretation: 51-80 ng/mL (increased r isk of hypercalciuria) ----REFERENCE VALUE---- 25-HYDROXY D TOTAL (D2+D3) Optimum level s in the healthy population are 20-50, patients with bone disease may benefit from higher levels within this r jean-pierre. ----ADDITIONAL INFORMATION---- This test was developed and its performa nce characteristics determined by [facility] in a manner consistent with CLIA requirements. This test has not been cleared or approved by the [place] d and Drug Administration. Specimen Anatomical Collection Method Collection Time Receive d Time (Source) Location / / Volume Laterality Blood (Blood, 09/11/2018 7:04 AM 09/11/19 Venous) RN FACULTY 10:31 AM RN FACULTY Rika Cameron M.D. LAB BLOOD ADD-ON Performing Organization Address City/[facility]/ZIP Code Phon e Number [facility] [address], [place] [address] [facility] (ABNORMAL) Immunoglobulin M (IgM) (09/11/2018 7:04 AM RN FACULTY) Patholo gist Method Time Signature Immunoglobulin M 1490 (H) 37 - 286 09/11/[address] [facility] (IgM), S mg/dL 11:47 AM LABORATORIES - [facility] Specimen Anatomical Collection Method Collection Time Receive d Time (Source) Location / / Volume Laterality Blood (Blood, 09/11/2018 7:04 AM 09/11/19 8:20 Venous) RN FACULTY AM RN FACULTY Rika Cameron M.D. LAB BLOOD ADD-ON Performing Organization Address City/[facility]/ZIP Code Phon e Number [facility] LABORATORIES - [address] [phone] [facility] Glucose, Fasting (09/11/2018 7:04 AM RN FACULTY) P athologist Signature Glucose, P 95 70 - 100 09/11/[address] [facility] mg/dL 8:03 AM RN FACULTY LABORATORIES - [facility] Last Intake 13 hr 09/11/[address] [facility] 7:26 AM RN FACULTY LABORATORIES - [facility] Specimen Anatomical Collection Method Collection Time Receive d Time (Source) Location / / Volume Laterality Blood (Blood, 09/11/2018 7:04 AM 09/11/19 7:26 Venous) RN FACULTY AM RN FACULTY Rika Cameron M.D. LAB BLOOD NON ADD-ON Performing Organization Address City/[facility]/ZIP Code Phon e Number [facility] LABORATORIES - [address] [phone] [facility] Creatinine with Estimated GFR (09/11/2018 7:04 AM RN FACULTY) Analysis Performed At [facility] logist Time Signature Creatinine 0.72 0.59 - 09/11/[address] [facility] 1.04 mg/dL 8:09 AM RN FACULTY LABORATORIES [facility] eGFR-Non 83 >=60 09/11/[address] [facility] Black/ mL/min/BSA 8:09 AM RN FACULTY LABORATORIES - [facility] Comment: ----ADDITIONAL INFORMATION---- Estimated GFR calculated using the 2009 CKD_EPI creatinine equation. eGFR-Black/ >90 >=60 mL/min/BSA 09/11/2018 8:[address] [facility] Palauan AM RN FACULTY LABORATORIES [facility] Comment: ----ADDITIONAL INFORMATION---- Estimated GFR calculated using the 2009 CKD_EPI creatinine equation. Specimen Anatomical Collection Method Collection Time Receive d Time (Source) Location / / Volume Laterality Blood (Blood, 09/11/2018 7:04 AM 09/11/19 19 7:25 Venous) RN FACULTY AM RN FACULTY Rika Cameron M.D. LAB BLOOD ADD-ON Performing Organization Address City/State/ZIP Code Phon e Number [facility] LABORATORIES - [address] [place] [address] [facility] (ABNORMAL) CBC with Differential (09/11/2018 7:04 AM RN FACULTY) [facility] gist Method Time Signature Hemoglobin 13.3 11.6 - 09/11/[address] [facility] 15.0 g/dL 7:30 AM RN FACULTY LABORATORIES [facility] Hematocrit 38.9 35.5 - 09/11/2018 [facility] 44.9 % 7:30 AM RN FACULTY LABORATORIES [facility] Erythrocytes 4.38 3.92 - 09/11/[address] [facility] 5.13 7:30 AM RN FACULTY LABORATORIES - x10(12)/L [facility] MCV 88.8 78.2 - 09/11/[address] [facility] 97.9 fL 7:30 AM RN FACULTY LABORATORIES [facility] RBC Distrib 13.4 12.2 - 09/11/[address] [facility] Width 16.1 % 7:30 AM RN FACULTY LABORATORIES [facility] Platelet Count 194 157 - 371 09/11/[address] [facility] x10(9)/L 7:30 AM RN FACULTY LABORATORIES [facility] Leukocytes 2.8 (L) 3.4 - 9.6 09/11/[address] [facility] x10(9)/L 7:30 AM RN FACULTY LABORATORIES - [facility] Neutrophils 1.96 1.56 - 09/11/[address] [facility] 6.45 7:30 AM RN FACULTY LABORATORIES - x10(9)/L [facility] Lymphocytes 0.29 (L) 0.95 - 09/11/[address] [facility] 3.07 7:30 AM RN FACULTY LABORATORIES - x10(9)/L [facility] Monocytes 0.26 0.26 - 09/11/[address] [facility] 0.81 7:30 AM RN FACULTY LABORATORIES - x10(9)/L [facility] Eosinophils 0.24 0.03 - 09/11/[address] [facility] 0.48 7:30 AM RN FACULTY LABORATORIES - x10(9)/L [facility] Basophils <0.03 0.01 - 09/11/[address] [facility] 0.08 7:30 AM RN FACULTY LABORATORIES - x10(9)/L [facility] Specimen Anatomical Collection Method Collection Time Receive d Time (Source) Location / / Volume Laterality Blood (Blood, 09/11/2018 7:04 AM 09/11/19 19 7:26 Venous) RN FACULTY AM RN FACULTY Rika Cameron M.D. LAB BLOOD ADD-ON Performing Organization Address City/State/ZIP Code Phon e Number [facility] LABORATORIES - [address] Bilirubin, Total (09/11/2018 7:04 AM RN FACULTY) P athologist Signature Bilirubin, 0.7 <=1.2 09/11/[address] [facility] Total, S mg/dL 8:09 AM RN FACULTY LABORATORIES - [facility] Specimen Anatomical Collection Method Collection Time Receive d Time (Source) Location / / Volume Laterality Blood (Blood, 09/11/2018 7:04 AM 09/11/19 19 7:25 Venous) RN FACULTY AM RN FACULTY Rika Cameron M.D. LAB BLOOD ADD-ON Performing Organization Address City/State/[facility] Code Phon e Number [facility] LABORATORIES - [address] [phone] [facility] AST (Aspartate Aminotransferase) (09/11/2018 7:04 AM RN FACULTY) Patholo gist Method Time Signature Aspartate 15 8 - 43 09/11/[address] [facility] Aminotransferase U/L 8:09 AM RN FACULTY LABORATORIE S - (AST), S [facility] Specimen Anatomical Collection Method Collection Time Receive d Time (Source) Location / / Volume Laterality Blood (Blood, 09/11/2018 7:04 AM 09/11/19 19 7:25 Venous) RN FACULTY AM RN FACULTY Rika Cameron M.D. LAB BLOOD ADD-ON Performing Organization Address City/[facility]/ZIP Code Phon e Number [facility] LABORATORIES - [address] [phone] [facility] Alkaline Phosphatase (09/11/2018 7:04 AM RN FACULTY) athologist Signature Alkaline 62 35 - 104 09/11/[address] [facility] Phosphatase, S U/L 9:24 AM RN FACULTY LABORATORIES - [facility] Specimen Anatomical Collection Method Collection Time Receive d Time (Source) Location / / Volume Laterality Blood (Blood, 09/11/2018 7:04 AM 09/11/19 19 7:25 Venous) RN FACULTY AM RN FACULTY Rika Cameron M.D. LAB BLOOD ADD-ON Performing Organization Address City/[facility]/ZIP Code Phon e Number [facility] LABORATORIES - [address] [phone] [facility] CK (Creatine Kinase) (03/09/2018 3:01 PM CDT) athologist Signature Creatine 63 26 - 192 03/09/[address] [facility] Kinase (CK), S U/L 3:57 PM CDT LABORATORIES - [facility] Specimen Anatomical Collection Method Collection Time Receive d Time (Source) Location / / Volume Laterality Blood (Blood, 03/09/2018 3:01 PM 03/09/20 18 3:20 Venous) CDT PM CDT Rika Cameron M.D. LAB BLOOD ADD-ON Performing Organization Address City/[facility] Phon e Number [facility] LABORATORIES - [address] [phone] [facility] C-Reactive Protein, High Sensitivity (03/09/2018 3:01 PM CDT) athologist Signature C-Reactive 1.8 <2.0 mg/L 03/10/[address] [facility] Protein, High 9:21 AM CDT LABORATORIES - Sens, S [facility] Comment: Lower risk Specimen Anatomical Collection Method Collection Time Receive d Time (Source) Location / / Volume Laterality Blood (Blood, 03/09/2018 3:01 PM 03/09/20 18 4:22 Venous) CDT PM CDT Rika Cameron M.D. LAB BLOOD ADD-ON Performing Organization Address City/[facility]/ZIP Code Phon e Number [facility] LABORATORIES - [address] [phone] [facility] Iron (03/09/2018 3:01 PM CDT) P athologist Signature Iron, S 71 35 - 145 03/09/[address] [facility] mcg/dL 3:57 PM CDT LABORATORIES [facility] Specimen Anatomical Collection Method Collection Time Receive d Time (Source) Location / / Volume Laterality Blood (Blood, 03/09/2018 3:01 PM 03/09/20 18 3:20 Venous) CDT PM CDT Rika Cameron M.D. LAB BLOOD ADD-ON Performing Organization Address City/[facility]/ZIP Code Phon e Number [facility] LABORATORIES - [address] [phone] [facility] S-TSH (Thyroid-Stimulating Hormone - Sensitive) (03/09/2018 3:01 PM CDT) athologist [facility] TSH, Sensitive 3.2 0.3 - 4.2 03/09/[address] [facility] mIU/L 3:57 PM CDT [facility] Specimen Anatomical Collection Method Collection Time Receive d Time (Source) Location / / Volume Laterality Blood (Blood, 03/09/2018 3:01 PM 03/09/20 18 3:20 Venous) CDT PM CDT Rika Cameron M.D. LAB BLOOD ADD-ON Performing Organization Address City/State/ZIP Code Phon e Number [facility] LABORATORIES - [address] [phone] [facility] Lipase (03/09/2018 3:01 PM CDT) athologist Signature Lipase, S 27 12 - 61 U/L 03/09/[address] [facility] 3:57 PM CDT LABORATORIES [facility] Specimen Anatomical Collection Method Collection Time Receive d Time (Source) Location / / Volume Laterality Blood (Blood, 03/09/2018 3:01 PM 03/09/20 18 3:20 Venous) CDT PM CDT Rika Cameron M.D. LAB BLOOD ADD-ON Performing Organization Address City/[facility]/ZIP Code Phon e Number [facility] LABORATORIES - [address] [phone] [facility] GGT (Gamma-Glutamyltransferase) (03/09/2018 3:01 PM CDT) Component Value Ref Test Analysis Performed At Patholo gist Range Method Time Signature Gamma 12 5 - 36 03/09/[address] [facility] Glutamyltransferase U/L 3:57 PM CDT LABORATO ARYAN - (GGT), S [facility] Specimen Anatomical Collection Method Collection Time Receive d Time (Source) Location / / Volume Laterality Blood (Blood, 03/09/2018 3:01 PM 03/09/20 18 3:20 Venous) CDT PM CDT Rika Cameron M.D. LAB BLOOD ADD-ON Performing Organization Address City/[facility]/ZIP Code Phon e Number [facility] LABORATORIES - [address] [phone] [facility] BUN (Blood Urea Nitrogen) (03/09/2018 3:01 PM CDT) P athologist Signature BUN (Blood 19 6 - 21 03/09/[address] [facility] Urea mg/dL 3:57 PM CDT LABORATORIES - Nitrogen), [facility] Specimen Anatomical Collection Method Collection Time Receive d Time (Source) Location / / Volume Laterality Blood (Blood, 03/09/2018 3:01 PM 03/09/20 18 3:20 Venous) CDT PM CDT Rika Cameron M.D. LAB BLOOD ADD-ON Performing Organization Address City/[facility]/ZIP Code Phon e Number [facility] LABORATORIES - [address] [phone] [facility] Uric Acid (03/09/2018 3:01 PM CDT) P athologist Signature Uric Acid, S 3.9 2.7 - 6.1 03/09/[address] [facility] mg/dL 3:57 PM CDT LABORATORIES - [facility] Specimen Anatomical Collection Method Collection Time Receive d Time (Source) Location / / Volume Laterality Blood (Blood, 03/09/2018 3:01 PM 03/09/20 18 3:20 Venous) CDT PM CDT Rika A Cameron M.D. LAB BLOOD ADD-ON Performing Organization Address City/[facility]/ZIP Code Phon e Number [facility] LABORATORIES - [address] [place], [place] [address] [facility] LD (Lactate Dehydrogenase) (03/09/2018 3:01 PM CDT) [facility] Method Time Signature Lactate 149 122 - 222 03/09/[address] [facility] Dehydrogenase U/L 3:57 PM CDT LABORATORIES - (LD), [facility] Specimen Anatomical Collection Method Collection Time Receive d Time (Source) Location / / Volume Laterality Blood (Blood, 03/09/2018 3:01 PM 03/09/20 18 3:20 Venous) CDT PM CDT Rika Cameron M.D. LAB BLOOD NON ADD-ON Performing Organization Address City/[facility]/ZIP Code Phon e Number [facility] LABORATORIES - [address] [phone] [facility] Calcium, Total (03/09/2018 3:01 PM CDT) P athologist Signature Calcium, 9.3 8.8 - 10.2 03/09/[address] [facility] Total, S mg/dL 3:57 PM CDT LABORATORIES - [facility] Specimen Anatomical Collection Method Collection Time Receive d Time (Source) Location / / Volume Laterality Blood (Blood, 03/09/2018 3:01 PM 03/09/20 18 3:20 Venous) CDT PM CDT Rika Cameron M.D. LAB BLOOD ADD-ON Performing Organization Address City/[facility]/ZIP Code Phon e Number [facility] LABORATORIES - [address] [phone] [facility] ALT (Alanine Aminotransferase) (03/09/2018 3:01 PM CDT) [facility] Method Time Signature Alanine 18 7 - 45 03/09/[address] [facility] Aminotransferase U/L 3:57 PM CDT LABORATORIE S - (ALT), S [facility] Specimen Anatomical Collection Method Collection Time Receive d Time (Source) Location / / Volume Laterality Blood (Blood, 03/09/2018 3:01 PM 03/09/20 18 3:20 Venous) CDT PM CDT Rika Cameron M.D. LAB BLOOD ADD-ON Performing Organization Address City/[facility]/ZIP Code Phon e Number [facility] LABORATORIES - [address] [phone] [facility] documented in this encounter Visit Diagnoses Diagnosis Fatigue - Primary Waldenstrom's Macroglobulinemia (HCC) documented in this encounter
--- OUTSIDE RECORDS SUMMARY | 2022-07-02 09:18 | XMS_ITS | Encounter Summary ---
:1945 Author Organization [facility] Address [address] [place] [address] Care Team Providers Name Role Phone Unavailable Primary Care Provider Unavailable Encounter Details Date Type Department Care Team Description 02/15/2018 Abstract DATA ABSTRACTION Provider, Historical Social History Tobacco Use Types Packs/Day Years [...] or relatives? How often do you attend episcopalian or More than 4 times per year 04/09/2022 catholic services? Do you belong to any clubs or Yes 04/09/2022 organizations such as episcopalian groups, unions, fraternal or athletic groups, or [...]
--- OUTSIDE RECORDS SUMMARY | 2022-07-02 09:18 | XMS_ITS | Encounter Summary ---
:1945 Author Organization [facility] Address [address] [place] [address] Care Team Providers Name Role Phone Elsewhere, Pcp Primary Care Provider Unavailable Encounter Details Date Type Department Care Team Description 10/16/2014 Historical Ophthalmology RST OPH Arron Patricio M.D. [address] [place], [place] [phone] (Wo rk) Social History [...] or relatives? How often do you attend judaism or More than 4 times per year 04/09/2022 hinduism services? Do you belong to any clubs or Yes 04/09/2022 organizations such as judaism groups, unions, fraternal or athletic groups, or [...] or slept in a long-term (including now)? Sex Assigned at Date Recorded Female 03/05/2018 7:34 PM CDT documented as of this encounter Progress Notes Arron Patricio M.D. - 10/16/2014 9:17 AM CST Eye General CHIEF COMPLAINT 6 month f/u Subconjunctival lymphoma, left eye HISTORY OF PRESENT ILLNESS Patient states others have noticed her eyelid coming down more. She agrees. Some dryness noticed this winter. Vision unchanged from last visit. 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 Plan: Incisional biopsy with cataract surgery, left eye Discussed risks, goals, alternatives, advance directives, and the necessity of other members of the healthcare team participating in the procedure with the patient (or legal major account representative and others present during the discussion). The patient understands. All questions answered and consent given. #[address] Cameron. #3 Cataract, left>right eye Visually significant Plan: Cataract surgery, left eye The alternatives to cataract surgery were discussed in detail with the patient (or legal major account representative and others present during the discussion). The risks, goals, advanced directives, alternatives and potential complications of surgery were discussed. Also discussed the necessity of other members ofthe surgical team participating in the interventional procedure. Patient verbalizes understanding and wishes to proceed with cataract surgery and probable intraocular lens implantation left eye (OS) atthe present time. This is a reasonable course. Will aim for -2.00 diopters. Will proceed under local anesthesia. Get IOL measurements both eyes (OU). DIAGNOSIS #1 Subconjunctival lymphoma, left eye #2 Waldenstrom macroglobulinemia #3 Cataract, left>right eye CDM Reports - EYEGEN Id: [id number] Status: Fnl documented in this encounter Plan of Treatment Not on filedocumented as of this encounter Visit Diagnoses Not on filedocumented in this encounter Care Teams Animal Care Attendant Relationship Specialty Start Date End Date Elsewhere, Pcp PCP - General Family Medicine 03/04/21 documented as of this encounter
--- OUTSIDE RECORDS SUMMARY | 2022-07-02 09:18 | XMS_ITS | Encounter Summary ---
:1945 Author Organization [facility] Address [address] [place] [address] Care Team Providers Name Role Phone Unavailable Primary Care Provider Unavailable Encounter Details Date Type Department Care Team Description 11/04/2016 Hospital Encounter HX RST BONE MARROW ITC Estrellita Acevedo, MEGAN R.N. Social History Tobacco Use Types Packs/Day Years [...] or relatives? How often do you attend zoroastrianism or More than 4 times per year 04/09/2022 rastafari services? Do you belong to any clubs or Yes 04/09/2022 organizations such as zoroastrianism groups, unions, fraternal or athletic groups, or [...] or slept in a chcf (including now)? Sex Assigned at Date Recorded [...]
--- OUTSIDE RECORDS SUMMARY | 2022-07-02 09:18 | XMS_ITS | Encounter Summary ---
:1945 Author Organization [facility] Address [address] [place] [address] Care Team Providers Name Role Phone Elsewhere, Pcp Primary Care Provider Unavailable Encounter Details Date Type Department Care Team Description 09/14/2012 Historical Ophthalmology RST OPH Arron Patricio M.D. [address] [place], [place] [phone] (Wo rk) Social History [...] or relatives? How often do you attend congregational or More than 4 times per year 04/09/2022 quaker services? Do you belong to any clubs or Yes 04/09/2022 organizations such as congregational groups, unions, fraternal or athletic groups, or [...] encounter Progress Notes Arron Patricio M.D. - 09/14/2012 8:49 AM CST Eye General CHIEF COMPLAINT Subconjunctival lymphoma, left eye, recheck HISTORY OF PRESENT ILLNESS Patient denies changes since last visit; new glasses (from elsewhere) working very well. 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 Plan: Get SL photos today. Patient will see Dr. Cameron today for systemic evaluation. If no systemic treatment indicated, will need to decide between repeat biopsy (to determine if residual disease present) versus empiric radiation. ?role of perilesional rituximab? Photo Interpretation: Photos confirm and document clinical findings of today. Suggest increased salmon appearance compared to May 2012. #[address] Cameron DIAGNOSIS #1 Subconjunctival lymphoma, left eye #2 Waldenstrom macroglobulinemia CDM Reports - EYEGEN Id: [id number] Status: Fnl documented in this encounter Plan of Treatment Not on filedocumented as of this encounter Visit Diagnoses Not on filedocumented in this encounter Care Teams Documentation Coordinator Relationship Specialty Start Date End Date Elsewhere, Pcp PCP - General Family Medicine 03/04/21 documented as of this encounter
--- OUTSIDE RECORDS SUMMARY | 2022-07-02 09:18 | XMS_ITS | Encounter Summary ---
:1945 Author Organization [facility] Address [address] [place] [address] Care Team Providers Name Role Phone Elsewhere, Pcp Primary Care Provider Unavailable Encounter Details Date Type Department Care Team Description 06/26/2015 Historical Ophthalmology RST OPH Arron Patricio M.D. [address] [place], [place] [phone] (Wo rk) Social History [...] More than 4 times per year 04/09/2022 samaritan services? Do you belong to any clubs [...] place to sleep or slept in a prison (including now)? Sex Assigned at Date Recorded Female 03/05/2018 7:34 PM CDT documented as of this encounter Progress Notes Arron Patricio M.D. - 06/26/2015 9:12 AM CST Eye General CHIEF COMPLAINT Decreased vision HISTORY OF PRESENT ILLNESS Vision left eye fluctuates. Eyes don't work well together since October. History of subconjunctival lymphoma, left eye. Occasional monocular shadowing left eye. 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 Cameron today. The lesion is more obvious than previous. Consider intralesional (?rituximab) treatment if isolated to eye, versus systemic treatment per Dr. Cameron. See back in 6 months, unless wants to proceed with intralesional treatment. #[address] Waldenstrom [address] Cameron. #3 Pseudophakia, left eye Stable #4 Cataract, right eye She is seeing well. Observe. DIAGNOSIS #1 Subconjunctival lymphoma, left eye #2 Waldenstrom macroglobulinemia #3 Pseudophakia, left eye #4 Cataract, right eye CDM Reports - EYEGEN Id: [id number] Status: Fnl documented in this encounter Plan of Treatment Not on filedocumented as of this encounter Visit Diagnoses Not on filedocumented in this encounter Care Teams Waiter/Waitress Dining Car Relationship Specialty Start Date End Date Elsewhere, Pcp PCP - General Family Medicine 03/04/21 documented as of this encounter
--- OUTSIDE RECORDS SUMMARY | 2022-07-02 09:18 | XMS_ITS | Encounter Summary ---
:1945 Author Organization [facility] Address [address] [place] [address] Care Team Providers Name Role Phone Unavailable Primary Care Provider Unavailable Reason for Referral Outpatient (Routine) - Closed Specialty Diagnoses / Procedures Referred By Referred To Contact Contact Hematology Oncology Diagnoses Waldenstrom's Macroglobulinemia (HCC) Rika Cameron [facility] [place] [address] [place] [address] Referral ID Status Reason Start Date Expiration Date Visits Requ ested Visits Authorized [id number] Closed 12/09/2017 06/07/2018 1 1 Encounter Details Date Type Department Care Team Description 12/09/2017 Orders Only Division of Rika Cameron oz Hematology in [place] Macroglobulinemia (HCC) [place], [place] [address] [place] [address] [place] [phone] Social History Tobacco Use Types Packs/Day Years [...] More than 4 times per year 04/09/2022 sabianist services? Do you belong to any clubs [...] place to sleep or slept in a nursing home (including now)? Sex Assigned at Date Recorded Female 03/05/2018 7:34 PM CDT documented as of this encounter Plan of Treatment Scheduled Referrals Name Type Priority Associated Diagnoses Order S [facility] Hematology office Outpatient Routine Waldenstrom's Expected: visit (clinic) Referral Macroglobulinemia (HCC) (Approximate), Expires: 12/09/2020 documented as of this encounter Results Glucose, Fasting (03/09/2018 8:45 AM CDT) athologist Signature Glucose, P 85 70 - 100 03/09/2018 [facility] mg/dL 9:[address] [facility] Last Intake 13 hr 03/09/2018 [facility] 9:[address] [facility] Specimen Anatomical Collection Method Collection Time Receive d Time (Source) Location / / Volume Laterality Blood 03/09/2018 8:45 AM 8 9:08 CDT AM CDT Rika Cameron M.D. LAB BLOOD NON ADD-ON Performing Organization Address City/State/ZIP Code Phon e Number [facility] LABORATORIES - [address] [place], [place] [address] [facility] Sodium (03/09/2018 8:44 AM CDT) athologist Signature Sodium, S 138 135 - 145 03/09/2018 [facility] mmol/L 9:51 AM CDT LABORATORIES - [facility] Specimen Anatomical Collection Method Collection Time Receive d Time (Source) Location / / Volume Laterality Blood 03/09/2018 8:44 AM 8 9:07 CDT AM CDT Rika Cameron M.D. LAB BLOOD ADD-ON Performing Organization Address City/[facility] Phon e Number [facility] LABORATORIES - [address] [place] [address] [facility] Potassium (03/09/2018 8:44 AM CDT) P athologist Signature Potassium, S 4.0 3.6 - 5.2 03/09/2018 [facility] mmol/L 9:51 AM CDT LABORATORIES - [facility] Specimen Anatomical Collection Method Collection Time Receive d Time (Source) Location / / Volume Laterality Blood 03/09/2018 8:44 AM 8 9:07 CDT AM CDT Rika Cameron M.D. LAB BLOOD ADD-ON Performing Organization Address City/[facility] Code Phon e Number [facility] LABORATORIES - [address] [place] [address] [facility] Monoclonal Protein Study (03/09/2018 8:44 AM CDT) Component Value Ref Test Analysis Performed At Patholo gist Range Method Time Signature Total Protein, S 7.1 6.3 - 03/09/2018 [facility] 7.9 10:34 AM LABORATORIES - g/dL CDT [facility] Albumin 3.4 3.4 - 03/09/2018 [facility] 4.7 3:28 PM LABORATORIES - g/dL CDT [facility] Alpha-1 Globulin 0.3 0.1 - 03/09/2018 [facility] 0.3 3:28 PM LABORATORIES - g/dL CDT [facility] Alpha-2 Globulin 1.0 0.6 - 03/09/2018 [facility] 1.0 3:28 PM LABORATORIES - g/dL CDT [facility] Beta-Globulin 0.8 0.7 - 03/09/2018 [facility] 1.2 3:28 PM LABORATORIES - g/dL CDT [facility] Gamma-Globulin 1.5 0.6 - 03/09/2018 [facility] 1.6 3:28 PM LABORATORIES - g/dL CDT [facility] A/G Ratio 0.92 03/09/2018 [facility] 3:28 PM LABORATORIES - T [facility] M spike 1.4 g/dL 03/09/2018 [facility] 3:28 PM LABORATORIES - T [facility] Impression M-spike in gamma fraction. 03/09/2018 [facility] See Immunofixation. 3:28 PM LABORATORI ES - T [facility] Immunofixation Monoclonal IgM kappa. 03/10/2018 [facility] Size of monoclonal protein not changed significantly s andria 11/18/2017. 1:39 PM LABORATORIES - Suggest protein electrophoresis only to follow the patient rather than CDT [facility] immunofixation. CAMPUS Specimen Anatomical Collection Method Collection Time Receive d Time (Source) Location / / Volume Laterality Blood 03/09/2018 8:44 AM 8 9:37 CDT AM CDT Rika Cameron M.D. LAB BLOOD ADD-ON Performing Organization Address City/[facility]/ZIP Code Phon e Number [facility] LABORATORIES - [address] [place] [address] [facility] (ABNORMAL) Immunoglobulin M (IgM) (03/09/2018 8:44 AM CDT) Patholo gist Method Time Signature Immunoglobulin M 1800 (H) 37 - 286 03/09/2018 [facility] (IgM), S mg/dL 12:20 PM LABORATORIES - T [facility] Specimen Anatomical Collection Method Collection Time Receive d Time (Source) Location / / Volume Laterality Blood 03/09/2018 8:44 AM 8 9:37 CDT AM CDT Rika Cameron M.D. LAB BLOOD ADD-ON Performing Organization Address City/State/ZIP Code Phon e Number [facility] LABORATORIES - [address] [address] [facility] Creatinine with Estimated GFR (MDRD) (03/09/2018 8:44 AM CDT) Analysis Performed At Patho logist Time Signature Creatinine 0.74 0.59 - 03/09/2018 [facility] 1.04 mg/dL 9:51 AM CDT LABORATORIES - [facility] eGFR-Non 81 >=60 03/09/2018 [facility] Black/ mL/min/BSA 9:51 AM CDT LABORATORIES - [place] [facility] Comment: ----ADDITIONAL INFORMATION---- Estimated GFR calculated using the 2009 CKD_EPI creatinine equation. eGFR-Black/ >90 >=60 mL/min/BSA 03/09/2018 9:51 [facility] [place] AM CDT LABORATORIES - [facility] Comment: ----ADDITIONAL INFORMATION---- Estimated GFR calculated using the 2009 CKD_EPI creatinine equation. Specimen Anatomical Collection Method Collection Time Receive d Time (Source) Location / / Volume Laterality Blood 03/09/2018 8:44 AM 8 9:07 CDT AM CDT Rika Cameron M.D. LAB BLOOD ADD-ON Performing Organization Address City/State/ZIP Code Phon e Number [facility] LABORATORIES - [address] [place], [place] [address] [facility] (ABNORMAL) CBC with Differential (03/09/2018 8:44 AM CDT) [facility] Method Time Signature Hemoglobin 12.6 11.6 - 03/09/2018 [facility] 15.0 g/dL 9:30 AM CDT LABORATORIES - [facility] Hematocrit 37.7 35.5 - 03/09/2018 [facility] 44.9 % 9:30 AM CDT LABORATORIES - [facility] Erythrocytes 4.27 3.92 - 03/09/2018 [facility] 5.13 9:30 AM CDT LABORATORIES - x10(12)/L [facility] MCV 88.3 78.2 - 03/09/2018 [facility] 97.9 fL 9:30 AM CDT LABORATORIES [place] RBC Distrib 13.8 12.2 - 03/09/2018 [facility] Width 16.1 % 9:30 AM CDT LABORATORIES - [facility] Platelet Count 205 157 - 371 03/09/2018 [facility] x10(9)/L 9:30 AM CDT LABORATORIES [place] Leukocytes 2.9 (L) 3.4 - 9.6 03/09/2018 [facility] x10(9)/L 9:30 AM CDT LABORATORIES - [facility] Neutrophils 1.94 1.56 - 03/09/2018 [facility] 6.45 9:30 AM CDT LABORATORIES - x10(9)/L [facility] Lymphocytes 0.30 (L) 0.95 - 03/09/2018 [facility] 3.07 9:30 AM CDT LABORATORIES - x10(9)/L [facility] Monocytes 0.32 0.26 - 03/09/2018 [facility] 0.81 9:30 AM CDT LABORATORIES - x10(9)/L [facility] Eosinophils 0.36 0.03 - 03/09/2018 [facility] 0.48 9:30 AM CDT LABORATORIES - x10(9)/L [facility] Basophils <0.03 0.01 - 03/09/2018 [facility] 0.08 9:30 AM CDT LABORATORIES - x10(9)/L [facility] Specimen Anatomical Collection Method Collection Time Receive d Time (Source) Location / / Volume Laterality Blood 03/09/2018 8:44 AM 8 9:08 CDT AM CDT Rika Cameron M.D. LAB BLOOD ADD-ON Performing Organization Address City/[facility]/ZIP Code Phon e Number [facility] LABORATORIES - [address] [place] [address] [facility] Bilirubin, Total (03/09/2018 8:44 AM CDT) P athologist Signature Bilirubin, 0.8 <=1.2 03/09/2018 [facility] Total, S mg/dL 9:51 AM CDT LABORATORIES - [facility] Specimen Anatomical Collection Method Collection Time Receive d Time (Source) Location / / Volume Laterality Blood 03/09/2018 8:44 AM 8 9:07 CDT AM CDT Rika Cameron M.D. LAB BLOOD ADD-ON Performing Organization Address City/State/ZIP Code Phon e Number [facility] LABORATORIES - [address] [place] [address] [facility] AST (Aspartate Aminotransferase) (03/09/2018 8:44 AM CDT) Patholo gist Method Time Signature Aspartate 15 8 - 43 03/09/2018 [facility] Aminotransferase U/L 9:51 AM CDT LABORATORIE S - (AST), S [facility] Specimen Anatomical Collection Method Collection Time Receive d Time (Source) Location / / Volume Laterality Blood 03/09/2018 8:44 AM 8 9:07 CDT AM CDT Rika Cameron M.D. LAB BLOOD ADD-ON Performing Organization Address City/State/ZIP Code Phon e Number [facility] LABORATORIES - [address] [address] [facility] Alkaline Phosphatase (03/09/2018 8:44 AM CDT) P athologist Signature Alkaline 57 55 - 142 03/09/2018 [facility] Phosphatase, S U/L 9:51 AM CDT LABORATORIES - [facility] Specimen Anatomical Collection Method Collection Time Receive d Time (Source) Location / / Volume Laterality Blood 03/09/2018 8:44 AM 8 9:07 CDT AM CDT Rika Cameron M.D. LAB BLOOD ADD-ON Performing Organization Address City/State/ZIP Code Phon e Number [facility] LABORATORIES - [address] [place] [address] [facility] documented in this encounter Visit Diagnoses Diagnosis Waldenstrom's Macroglobulinemia (HCC) documented in this encounter
--- OUTSIDE RECORDS SUMMARY | 2022-07-02 09:18 | XMS_ITS | Encounter Summary ---
:1945 Author Organization [facility] Address [address] [place] [id number] Care Team Providers Name Role Phone Unavailable Primary Care Provider Unavailable Encounter Details Date Type Department Care Team Description 03/09/2018 Hospital Department of Cameron, Waldenstrom's Macroglobulinemia (HCC); Encounter Laboratory Rika Smith M.D. Fatigue Medicine and [address] [place] [address], [place] [address] [facility] [phone] [place] (Work) [address] [place] [address] [place], [place] (Fax) [phone] Social History Tobacco Use [...] daily. 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 URIC ACID, S/P Routine 03/09/2018 3:01 Fatouenstrom's Results f or PM CDT Macroglobulinemi a (HCC) this procedure Fatigue are in the results section. BUN (BLOOD UREA Routine 03/09/2018 3:01 Waldenstrom's Results for NITROGEN), S/P PM CDT Macroglobulinemi a (HCC) this procedure Fatigue are in the results section. ALANINE Routine 03/09/2018 3:01 Waldenstrom's Results for AMINOTRANSFERASE (ALT), PM CDT Macroglo bulinemia (HCC) this procedure S/P Fatigue are in the results section. THYROID-STIMULATING Routine 03/09/2018 3:01 Waldenstrom's Resu lts for HORMONE-SENSITIVE PM CDT Macroglobuline christi (HCC) this procedure (S-TSH) Fatigue are in the results section. LIPASE, S/P Routine 03/09/2018 3:01 Waldenstrom's Results for PM CDT Macroglobulinemi a (HCC) this procedure Fatigue are in the results section. LACTATE DEHYDROGENASE Routine 03/09/2018 3:01 Waldenstrom's Re sults for (LD), S PM CDT Macroglobulinemi a (HCC) this procedure Fatigue are in the results section. IRON, S/P Routine 03/09/2018 3:01 Waldenstrom's Results for PM CDT Macroglobulinemi a (HCC) this procedure Fatigue are in the results section. GAMMA-GLUTAMYLTRANSFERA Routine 03/09/2018 3:01 Waldenstrom's Results for SE (GGT), S/P PM CDT Macroglobulinemi a (HCC) this procedure Fatigue are in the results section. CREATINE KINASE (CK), S Routine 03/09/2018 3:01 Waldenstrom's Results for PM CDT Macroglobulinemi a (HCC) this procedure Fatigue are in the results section. CALCIUM, TOT, S/P Routine 03/09/2018 3:01 Waldenstrom's Result s for PM CDT Macroglobulinemi a (HCC) this procedure Fatigue are in the results section. documented in this encounter Results CK (Creatine Kinase) (03/09/2018 3:01 PM CDT) P athologist Signature Creatine 63 26 - 192 03/09/2018 [facility] Kinase (CK), S U/L 3:57 PM CDT LABORATORIES - [facility] Specimen Anatomical Collection Method Collection Time Receive d Time (Source) Location / / Volume Laterality Blood (Blood, 03/09/2018 3:01 PM 07/19/20 18 3:20 Venous) CDT PM CDT Rika Cameron M.D. LAB BLOOD ADD-ON Performing Organization Address City/[facility] Code Phon e Number [facility] LABORATORIES - [address] C-Reactive Protein, High Sensitivity (03/09/2018 3:01 PM CDT) athologist [facility] C-Reactive 1.8 <2.0 mg/L 03/10/2018 [facility] Protein, High 9:21 AM CDT LABORATORIES - Sens, S [facility] Comment: Lower risk Specimen Anatomical Collection Method Collection Time Receive d Time (Source) Location / / Volume Laterality Blood (Blood, 03/09/2018 3:01 PM 03/09/20 18 4:22 Venous) CDT PM CDT Rika Cameron M.D. LAB BLOOD ADD-ON Performing Organization Address [facility] Phon e Number [facility] LABORATORIES - [address] [place] [address] 05 [facility] Iron (03/09/2018 3:01 PM CDT) athologist [facility] Iron, S 71 35 - 145 03/09/2018 [facility] mcg/dL 3:57 PM CDT LABORATORIES - [facility] Specimen Anatomical Collection Method Collection Time Receive d Time (Source) Location / / Volume Laterality Blood (Blood, 03/09/2018 3:01 PM 03/09/20 18 3:20 Venous) CDT PM CDT Rika Cameron M.D. LAB BLOOD ADD-ON Performing Organization Address City/[facility] Code Phon e Number [facility] LABORATORIES - [address] S-TSH (Thyroid-Stimulating Hormone - Sensitive) (03/09/2018 3:01 PM CDT) athologist [facility] TSH, Sensitive 3.2 0.3 - 4.2 03/09/2018 [facility] mIU/L 3:57 PM CDT LABORATORIES - [facility] Specimen Anatomical Collection Method Collection Time Receive d Time (Source) Location / / Volume Laterality Blood (Blood, 03/09/2018 3:01 PM 03/09/20 18 3:20 Venous) CDT PM CDT Rika Cameron M.D. LAB BLOOD ADD-ON Performing Organization Address City/State/ZIP Code Phon e Number [facility] LABORATORIES - [address] [place] [address] [facility] Lipase (03/09/2018 3:01 PM CDT) P athologist Signature Lipase, S 27 12 - 61 U/L 03/09/2018 [facility] 3:57 PM CDT LABORATORIES - [facility] Specimen Anatomical Collection Method Collection Time Receive d Time (Source) Location / / Volume Laterality Blood (Blood, 03/09/2018 3:01 PM 03/09/20 18 3:20 Venous) CDT PM CDT Rika Cameron M.D. LAB BLOOD ADD-ON Performing Organization Address City/[facility]/ZIP Code Phon e Number [facility] LABORATORIES - [address] [place] [address] [facility] GGT (Gamma-Glutamyltransferase) (03/09/2018 3:01 PM CDT) Component Value Ref Test Analysis Performed At [facility] gist Range Method Time Signature Gamma 12 5 - 36 03/09/2018 [facility] Glutamyltransferase U/L 3:57 PM CDT LABORATO ARYAN - (GGT), [facility] Specimen Anatomical Collection Method Collection Time Receive d Time (Source) Location / / Volume Laterality Blood (Blood, 03/09/2018 3:01 PM 03/09/20 18 3:20 Venous) CDT PM CDT Rika Cameron M.D. LAB BLOOD ADD-ON Performing Organization Address City/[facility]/ZIP Code Phon e Number [facility] LABORATORIES - [address] [place] [address] [facility] BUN (Blood Urea Nitrogen) (03/09/2018 3:01 PM CDT) P athologist Signature BUN (Blood 19 6 - 21 03/09/2018 [facility] Urea mg/dL 3:57 PM CDT LABORATORIES - Nitrogen), [facility] Specimen Anatomical Collection Method Collection Time Receive d Time (Source) Location / / Volume Laterality Blood (Blood, 03/09/2018 3:01 PM 03/09/20 18 3:20 Venous) CDT PM CDT Rika Cameron M.D. LAB BLOOD ADD-ON Performing Organization Address City/State/ZIP Code Phon e Number [facility] LABORATORIES - [address] [place] [address] [facility] Uric Acid (03/09/2018 3:01 PM CDT) athologist Signature Uric Acid, S 3.9 2.7 - 6.1 03/09/2018 [facility] mg/dL 3:57 PM CDT LABORATORIES - [facility] Specimen Anatomical Collection Method Collection Time Receive d Time (Source) Location / / Volume Laterality Blood (Blood, 03/09/2018 3:01 PM 03/09/20 18 3:20 Venous) CDT PM CDT Rika Cameron M.D. LAB BLOOD ADD-ON Performing Organization Address City/[facility]/ZIP Code Phon e Number [facility] LABORATORIES - [address] [place] [address] [facility] LD (Lactate Dehydrogenase) (03/09/2018 3:01 PM CDT) [facility] gist Method Time Signature Lactate 149 122 - 222 03/09/2018 [facility] Dehydrogenase U/L 3:57 PM CDT LABORATORIES - (LD), S [facility] Specimen Anatomical Collection Method Collection Time Receive d Time (Source) Location / / Volume Laterality Blood (Blood, 03/09/2018 3:01 PM 03/09/20 18 3:20 Venous) CDT PM CDT Rika Cameron M.D. LAB BLOOD NON ADD-ON Performing Organization Address City/State/ZIP Code Phon e Number [facility] LABORATORIES - [address] [place] [address] [facility] Calcium, Total (03/09/2018 3:01 PM CDT) athologist [facility] Calcium, 9.3 8.8 - 10.2 03/09/2018 [facility] Total, S mg/dL 3:57 PM CDT LABORATORIES - [facility] Specimen Anatomical Collection Method Collection Time Receive d Time (Source) Location / / Volume Laterality Blood (Blood, 03/09/2018 3:01 PM 03/09/20 18 3:20 Venous) CDT PM CDT Rika Cameron M.D. LAB BLOOD ADD-ON Performing Organization Address City/State/ZIP Code Phon e Number [facility] LABORATORIES - [address] [place] [address] [facility] ALT (Alanine Aminotransferase) (03/09/2018 3:01 PM CDT) Patholo gist Method Time Signature Alanine 18 7 - 45 03/09/2018 [facility] Aminotransferase U/L 3:57 PM CDT LABORATORIE S - (ALT), S [facility] Specimen Anatomical Collection Method Collection Time Receive d Time (Source) Location / / Volume Laterality Blood (Blood, 03/09/2018 3:01 PM 03/09/20 18 3:20 Venous) CDT PM CDT Rika Cameron M.D. LAB BLOOD ADD-ON Performing Organization Address City/State/ZIP Code Phon e Number [facility] LABORATORIES - [address] [place], [place] [address] [facility] documented in this encounter Visit Diagnoses Diagnosis Waldenstrom's Macroglobulinemia (HCC) Fatigue documented in this encounter
--- OUTSIDE RECORDS SUMMARY | 2022-07-02 09:18 | XMS_ITS | Encounter Summary ---
:[address] [facility] Address [address] [place] [address] Care Team Providers Name Role Phone Unavailable Primary Care Provider Unavailable Encounter Details Date Type Department Care Team Description 01/24/2017 - Hospital Encounter HX RST INFUSION Ban Jacome, 01/31/2017 THERAPY R.N. [address] [place] [address] Social History Tobacco Use Types Packs/Day Years [...] Sign Reading Time Taken Comments Blood Pressure 136/70 01/24/2017 4:31 PM CDT Pulse 70 01/24/2017 4:31 PM CDT Temperature - - Respiratory Rate 16 01/24/2017 4:31 PM CDT Oxygen Saturation - - Inhaled Oxygen Concentration - - Weight - - Height - - Body Mass Index - - documented in this encounter Medications at Time [...] daily. 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 0 017 03/31/2021 ORAL [employer] - Traditional; 1 Tablespoon by mouth daily MAGNESIUM ORAL Take 0.5-1 tablets by 0 01/24/2017 03/31/2021 mouth daily as needed. 150 mg tablets, helps adrenal symptoms multivitamin tablet Take 1 tablet by mouth. 0 04/201004/16/2022 documented as of this encounter Plan of Treatment Not on filedocumented as of this encounter Visit Diagnoses Not on filedocumented in this encounter
--- OUTSIDE RECORDS SUMMARY | 2022-07-02 09:18 | XMS_ITS | Encounter Summary ---
:1945 Author Organization [facility] Address [address] [place] [address] Care Team Providers Name Role Phone Unavailable Primary Care Provider Unavailable Encounter Details Date Type Department Care Team Description 10/23/2014 Hospital Encounter HX NO MAPPING Social History [...] More than 4 times per year 04/09/2022 holiness services? Do you belong to any clubs [...]
--- OUTSIDE RECORDS SUMMARY | 2022-07-02 09:18 | XMS_ITS | Encounter Summary ---
:1945 Author Organization [facility] Address [address] [place] [address] Care Team Providers Name Role Phone Unavailable Primary Care Provider Unavailable Reason for Visit Reason Onset Date Comments Appointment 02/21/2018 Encounter Details Date Type Department Care Team Description 02/21/2018 Clinical Communication Department of Arron Patricio Ophthalmology ar Knox M.D. [place], [place] [address] [place] [address] [address] [place] [phone] Social History Tobacco Use Types Packs/Day Years [...] this encounter Miscellaneous Notes Telephone Encounter - Matt Kasper - 02/21/2018 3:57 PM CDT Patient called requesting to see Dr. Patricio again. She says her vision is not clear in her left eye. She had cataract surgery with Dr. 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 She is requesting an appointment of 03/09. documented in this encounter Plan of Treatment Not on filedocumented as of this encounter Visit Diagnoses Not on filedocumented in this encounter
--- OUTSIDE RECORDS SUMMARY | 2022-07-02 09:18 | XMS_ITS | Encounter Summary ---
:1945 Author Organization [facility] Address [address] [place] [address] Care Team Providers Name Role Phone Unavailable Primary Care Provider Unavailable Encounter Details Date Type Department Care Team Description 11/26/2017 Abstract Division of Hematology in Daisy López R.N. [place], [place] [address] [facility] [address] [place] [address] [place] [address] [phone] Social History Tobacco Use Types Packs/Day Years [...] or slept in a detention (including now)? Sex Assigned at Date Recorded Female 03/05/2018 7:34 PM CDT documented as of this encounter Plan of Treatment Not on filedocumented as of this encounter Visit Diagnoses Not on filedocumented in this encounter
--- OUTSIDE RECORDS SUMMARY | 2022-07-02 09:18 | XMS_ITS | Encounter Summary ---
:1945 Author Organization [facility] Address [address] [place] [address] Care Team Providers Name Role Phone Unavailable Primary Care Provider Unavailable Encounter Details Date Type Department Care Team Description 01/24/2017 Hospital Encounter HX NO MAPPING Social History [...] or relatives? How often do you attend yazidism or More than 4 times per year 04/09/2022 druze services? Do you belong to any clubs or Yes 04/09/2022 organizations such as yazidism groups, unions, fraternal or athletic groups, or [...] or slept in a residential (including now)? Sex Assigned at Date Recorded [...] daily. 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 0 [...]
--- OUTSIDE RECORDS SUMMARY | 2022-07-02 09:18 | XMS_ITS | Encounter Summary ---
:1945 Author Organization [facility] Address [address] [place] [address] Care Team Providers Name Role Phone Elsewhere, Pcp Primary Care Provider Unavailable Encounter Details Date Type Department Care Team Description 10/24/2014 Historical Ophthalmology RST OPH Arron Patricio M.D. [address] [place], [place] [phone] (Wo rk) Social History [...] or relatives? How often do you attend yazidi or More than 4 times per year 04/09/2022 yarsanism services? Do you belong to any clubs or Yes 04/09/2022 organizations such as yazidi groups, unions, fraternal or athletic groups, or [...] encounter Progress Notes Arron Patricio M.D. - 10/24/2014 7:02 AM CST Eye General CHIEF COMPLAINT one day s/p IOL left eye. HISTORY OF PRESENT ILLNESS Patient denies ocular pain. IMPRESSION / REPORT / PLAN #1 Subconjunctival lymphoma, left eye s/p incisional biopsy 09/2011 s/p 6 cycles of chemo (last in February 2012) s/p repeat biopsy 10/2014......result pending #[address]den[address] Cameron. #3 s/p Cataract surgery with intraocular lens implant, left eye. Doing well. Moxifloxacin 0.5%, 1 drop 4x/day for 1 week into operative eye. Prednisolone acetate 1% 4x/day, thentaper by 1drop/day each week into operative eye as per written instructions. Wear shield at night and glasses during the day. , Call if decreased vision, increased photophobia, pain, discharge or increased redness occurs., Instruction pamphlet given, Care following cataract surgery ( [id number]) Follow-up in 3-4 weeks. DIAGNOSIS #1 Subconjunctival lymphoma, left eye #2 Waldenstrom macroglobulinemia #3 s/p Cataract surgery with intraocular lens implant, left eye. CDM Reports - [facility] Id: [id number] Status: Fnl documented in this encounter Plan of Treatment Not on filedocumented as of this encounter Visit Diagnoses Not on filedocumented in this encounter Care Teams Jet Dyeing Machine Tender Relationship Specialty Start Date End Date Elsewhere, Pcp PCP - General Family Medicine 03/04/21 documented as of this encounter
--- OUTSIDE RECORDS SUMMARY | 2022-07-02 09:18 | XMS_ITS | Encounter Summary ---
:1945 Author Organization [facility] Address [address] [place] [address] Care Team Providers Name Role Phone Elsewhere, Pcp Primary Care Provider Unavailable Encounter Details Date Type Department Care Team Description 05/16/2017 Historical Ophthalmology RST OPH Arron Patricio M.D. [address] [place], [place] [phone] (Wo rk) Social History [...] More than 4 times per year 04/09/2022 anabaptist services? Do you belong to any clubs [...] encounter Progress Notes Arron Patricio M.D. - 05/16/2017 1:23 PM CDT Eye General CHIEF COMPLAINT Follow-up left eye lymphoma HISTORY OF PRESENT ILLNESS chemo from October to March; thinks the lymphoma is decreased but still present. Eyelid droop has gotten better, but still drooping more than her right. Vision has not changed, fluctuates throughout theday. IMPRESSION / REPORT / PLAN The following [...] s/p recent chemo, ended February 2017 Today has almost complete regression of the conj lesion and there is no indication for local treatment. Plan: See me as needed. Continue follow-up with heme. #[address]den[address] Cameron. #3 Pseudophakia, left eye Stable #4 Cataract, right eye She is seeing well. Observe. DIAGNOSIS #1 Subconjunctival lymphoma, left eye #2 Waldenstrom macroglobulinemia #3 Pseudophakia, left eye #4 Cataract, right eye CDM Reports - [facility] Id: [id number] Status: Fnl documented in this encounter Plan of Treatment Not on filedocumented as of this encounter Visit Diagnoses Not on filedocumented in this encounter Care Teams Fish Housekeeper Relationship Specialty Start Date End Date Elsewhere, Pcp PCP - General Family Medicine 03/04/21 documented as of this encounter
--- OUTSIDE RECORDS SUMMARY | 2022-07-02 09:19 | XMS_ITS | Encounter Summary ---
:1945 Author Organization [facility] Address [address] [place] [address] Care Team Providers Name Role Phone Elsewhere, Pcp Primary Care Provider Unavailable Encounter Details Date Type Department Care Team Description 02/07/2012 Historical Ophthalmology RST OPH Arron Patricio M.D. [address] [place], [place] [phone] (Wo rk) Social History [...] More than 4 times per year 04/09/2022 methodist services? Do you belong to any clubs [...] for the very basics like Not h leoy at all 04/09/2022 food, housing, medical care, [...] encounter Progress Notes Arron Patricio M.D. - 02/07/2012 1:34 PM CDT Eye General CHIEF COMPLAINT s/p biopsy of subconjunctival mass, left eye HISTORY OF PRESENT ILLNESS Patient denies ocular pain. 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 s/p 4 cycles of chemo.....2 remain. Mild improvement, but not resolved. The SL photos show a reduction in density of the salmon patch with underlying large vessels more visible than before. Plan: Will recheck in 4 months. #[address] Cameron DIAGNOSIS #1 Subconjunctival lymphoma, left eye #2 Waldenstrom macroglobulinemia [facility] Id: [id number] Status: Fnl documented in this encounter Plan of Treatment Not on filedocumented as of this encounter Visit Diagnoses Not on filedocumented in this encounter Care Teams Agricultural Produce Washer Relationship Specialty Start Date End Date Elsewhere, Pcp PCP - General Family Medicine 03/04/21 documented as of this encounter
--- OUTSIDE RECORDS SUMMARY | 2022-07-02 09:19 | XMS_ITS | Encounter Summary ---
:1945 Author Organization [facility] Address [address] [place] [address] Care Team Providers Name Role Phone Unavailable Primary Care Provider Unavailable Encounter Details Date Type Department Care Team Description 12/07/2011 - Hospital Encounter HX RST INFUSION Nneka Grier, 12/14/2011 THERAPY R.N. [address] [place] [address] Social History Tobacco Use Types Packs/Day Years [...] or slept in a custodial (including now)? Sex Assigned at Date Recorded Female 03/05/2018 7:34 PM CDT documented as of this encounter Last Filed Vital Signs Vital Sign Reading Time Taken Comments Blood Pressure 155/83 12/07/2011 4:09 PM CDT Pulse 85 12/07/2011 4:09 PM CDT Temperature - - Respiratory Rate 16 12/07/2011 4:09 PM CDT Oxygen Saturation - - Inhaled Oxygen Concentration - - Weight - - Height - - Body Mass Index - - documented in this encounter Medications at Time of Discharge Medication Sig Dispensed Refills Start Date End Date multivitamin tablet Take 1 tablet by mouth. 0 04/201004/16/2022 documented as of this encounter Plan of Treatment Not on filedocumented as of this encounter Visit Diagnoses Not on filedocumented in this encounter
--- OUTSIDE RECORDS SUMMARY | 2022-07-02 09:19 | XMS_ITS | Encounter Summary ---
:1945 Author Organization [facility] Address [address] [place] [address] Care Team Providers Name Role Phone Elsewhere, Pcp Primary Care Provider Unavailable Encounter Details Date Type Department Care Team Description 10/07/2011 Historical Ophthalmology RST OPH Arron Patricio M.D. [address] [place], [place] [phone] (Wo rk) Social History [...] More than 4 times per year 04/09/2022 orthodox services? Do you belong to any clubs [...] encounter Progress Notes Arron Patricio M.D. - 10/07/2011 8:38 AM CST Eye General CHIEF COMPLAINT blurred vision HISTORY OF PRESENT ILLNESS Blurred vision; both eyes (right > left); x several months; slowly progressive; symptoms are moderate. Noted redness in left eye 2-3 weeks ago, no change. Occasional sticky tears, left eye more than right, for past 1-2 weeks. Has occasional pressure and swelling sensation in left eye especiallywhen working at computer. Old floaters unchanged; no flashes or diplopia. IMPRESSION / REPORT / PLAN Consult requested by: hJonatan [id number] #1 Subconjunctival mass, less eye Etiology uncertain. Get external and SL photos LE superior conj. Will consider biopsy (CBC wnl). Slit-lamp and external photos document the exam findings from today are of sufficient quality to monitor progression. #2 Waldenstrom macroglobulinemia Overall controlled, with occasional rituximab when IgM>6000. Currently systemically well and without any concerns. ADDENDUM Rare reports in the literature of solid lymphoplasmoid tumors associated with Waldenstrom. Discussedwith patient and indicated that we should proceed to biopsy. She agrees. MAC. Consent on day of surgery. DIAGNOSIS #1 Subconjunctival mass, less eye #2 Waldenstrom macroglobulinemia CDM Reports - [facility] Id: [id number] Status: Fnl documented in this encounter Plan of Treatment Not on filedocumented as of this encounter Visit Diagnoses Not on filedocumented in this encounter Care Teams Route Salesman Relationship Specialty Start Date End Date Elsewhere, Pcp PCP - General Family Medicine 03/04/21 documented as of this encounter
--- OUTSIDE RECORDS SUMMARY | 2022-07-02 09:19 | XMS_ITS | Encounter Summary ---
:1945 Author Organization [facility] Address [address] [place] [address] Care Team Providers Name Role Phone Unavailable Primary Care Provider Unavailable Encounter Details Date Type Department Care Team Description 10/13/2011 Hospital Encounter HX NO MAPPING Social History [...] More than 4 times per year 04/09/2022 cheondoism services? Do you belong to any clubs [...]
--- OUTSIDE RECORDS SUMMARY | 2022-07-02 09:19 | XMS_ITS | Encounter Summary ---
:1945 Author Organization [facility] Address [address] [place] [address] Care Team Providers Name Role Phone Unavailable Primary Care Provider Unavailable Encounter Details Date Type Department Care Team Description 2011 - Hospital Encounter HX RST INFUSION Doreen Dukes 11/22/2011 THERAPY N, MOLDING LINE OPERATOR, CNM [address] [place] [phone] Social History Tobacco Use Types Packs/Day Years [...] More than 4 times per year 04/09/2022 alevism services? Do you belong to any clubs [...] or slept in a penitentiary (including now)? Sex Assigned at Date Recorded Female 03/05/2018 7:34 PM CDT documented as of this encounter Last Filed Vital Signs Vital Sign Reading Time Taken Comments Blood Pressure 154/80 2011 2:13 PM CDT Pulse 88 2011 2:13 PM CDT Temperature - - Respiratory Rate 16 2011 2:13 PM CDT Oxygen Saturation - - Inhaled [...]
--- OUTSIDE RECORDS SUMMARY | 2022-07-02 09:19 | XMS_ITS | Encounter Summary ---
:1945 Author Organization [facility] Address [address] [place] [address] Care Team Providers Name Role Phone Unavailable Primary Care Provider Unavailable Encounter Details Date Type Department Care Team Description 03/07/2012 - Hospital Encounter HX RST INFUSION Roni Wharton 03/14/2012 THERAPY E, R.N. [address] [place] [address] Social History Tobacco Use Types Packs/Day Years [...] slept in a skilled nursing (including now)? Sex Assigned at Date Recorded Female 03/05/2018 7:34 PM CDT documented as of this encounter Last Filed Vital Signs Vital Sign Reading Time Taken Comments Blood Pressure 139/73 03/07/2012 11:02 AM CDT Pulse 70 03/07/2012 11:02 AM CDT Temperature - - Respiratory Rate 18 03/07/2012 11:02 AM CDT Oxygen Saturation - - Inhaled Oxygen [...]
--- OUTSIDE RECORDS SUMMARY | 2022-07-02 09:19 | XMS_ITS | Encounter Summary ---
:1945 Author Organization [facility] Address [address] [place] [address] Care Team Providers Name Role Phone Unavailable Primary Care Provider Unavailable Encounter Details Date Type Department Care Team Description 12/28/2011 - Hospital Encounter HX RST INFUSION Doreen Dukes 01/04/2012 THERAPY N, SOLAR PROCESS ENGINEER, CNM [address] [place] [phone] Social History Tobacco Use Types Packs/Day Years [...] More than 4 times per year 04/09/2022 tenriism services? Do you belong to any clubs [...] or slept in a halfway (including now)? Sex Assigned at Date Recorded Female 03/05/2018 7:34 PM CDT documented as of this encounter Last Filed Vital Signs Vital Sign Reading Time Taken Comments Blood Pressure 149/75 12/28/2011 6:19 PM CDT Pulse 79 12/28/2011 6:19 PM CDT Temperature - - Respiratory Rate 18 12/28/2011 6:19 PM CDT Oxygen Saturation - - Inhaled [...]
--- OUTSIDE RECORDS SUMMARY | 2022-07-02 09:19 | XMS_ITS | Encounter Summary ---
:1945 Author Organization [facility] Address [address] [place] [address] Care Team Providers Name Role Phone Unavailable Primary Care Provider Unavailable Encounter Details Date Type Department Care Team Description 11/08/2011 Hospital Encounter HX RST BONE MARROW ITC Curt Garcia, MEGAN R.N. [address] [place] [address] Social History Tobacco Use Types Packs/Day Years [...] or relatives? How often do you attend zoroastrian or More than 4 times per year 04/09/2022 holiness services? Do you belong to any clubs or Yes 04/09/2022 organizations such as zoroastrian groups, unions, fraternal or athletic groups, or [...] slept in a long term (including now)? Sex Assigned at Date Recorded Female 03/05/2018 7:34 PM CDT documented as of this encounter Medications at Time of Discharge Medication Sig Dispensed Refills Start Date End Date multivitamin tablet Take 1 tablet by mouth. 0 04/201004/16/2022 documented as of this encounter Plan of Treatment Not on filedocumented as of this encounter Procedures Procedure Name Priority Date/Time Associated Comments Diagnosis CT CHEST WITH IV Routine 11/08/2011 2:49 PM Resul ts for this CONTRAST WITH 3D CDT procedure a re in DEPENDENT WORKSTATION the re sults section. CT ABDOMEN PELVIS Routine 11/08/2011 2:49 PM Resu lts for this WITH IV CONTRAST CDT procedure a re in the results section. HX PLASMA CELL Routine 11/08/2011 10:40 Results f or this LABELING INDEX AM CDT procedure are in PROFILE the results section. documented in this encounter Results CT Abdomen Pelvis with IV Contrast (11/08/2011 2:49 PM CDT) Anatomical Region Laterality Modality Abdomen, Pelvis N/A Computed Tomography Specimen (Source) Anatomical Collection Method Collection Time Re ceived Time Location / / Volume Laterality 11/08/2011 2:49 PM CDT Narrative 11/08/2011 5:24 PM CDT 08-Nov-2011 14:49:00 ??Exam: CT ABDOMEN w & PELVIS w Indications: Lymphoma NOS ORIGINAL REPORT - 08-Nov-2011 17:24:00 EXAM: CT scan of the Chest with IV contr ast including 3D maximum intensity projections/volume renderings on a non-independent workstation and CT scan of the Abdomen and Pelvis with IV contrast. ??No prior CTs are available for comparison. ? SUMMARY: No abnormal lymphadenopathy in the chest, abdomen or pelvis. ??Normal spleen size. ?? CHEST CT: No hilar, mediastinal or axill melisa lymphadenopathy. ??No pulmonary nodules or infiltrates. ??Mild apical fibrosis. ?? ABDOMEN AND PELVIS CT: No retroperitonea l or iliac lymphadenopathy. ??The spleen size is normal. ??Benign hepatic cysts. ??Cholelithiasis. Mild dilatation of the left gonadal vein measuring 10mm in diam eter. ??Subcutaneous inflammatory change s in the anterior abdominal wall most consistent with subcutaneous injection. ??Hypertrophic and degenerative changes in the lumbar spine. ??Benign vertebral hemangiomas at L3 and L4. ?? [id number] Electronically signed by: ?? Patricia Gallego MD. ?? [phone] 08-Nov-2011 1 7:24 Procedure Note Milagros Gallego M.D. - 11/19/2017Forma tting of this note might be different from the original. 08-Nov-2011 14:49:00 Exam: CT ABDOMEN w & PELVIS w Indications: Lymphoma NOS ORIGINAL REPORT - 08-Nov-2011 17:24:00 EXAM: CT scan of the Chest with IV contr ast including 3D maximum intensity projections/volume renderings on a non-independent workstation and CT scan of the Abdomen and Pelvis with IV contrast. No prior CTs are available for comparison. SUMMARY: No abnormal lymphadenopathy in the chest, abdomen or pelvis. Normal spleen size. CHEST CT: No hilar, mediastinal or axill melisa lymphadenopathy. No pulmonary nodules or infiltrates. Mild apical fibrosis. ABDOMEN AND PELVIS CT: No retroperitonea l or iliac lymphadenopathy. The spleen size is normal. Benign hepatic cysts. Cholelithiasis. Mild dilatation of the left gonadal vein measuring 10mm in diameter. Subcutaneous inflammatory changes in the anterior abdominal wall most consistent with subcutaneous injection. Hypertrophic and degenerative changes in the lumbar spine. Benign vertebral hemangiomas at L3 and L4. [id number] Electronically signed by: Patricia Gallego MD. [phone] 08-Nov-2011 17:2 4 Rika Cameron M.D. [facility] CT PROCEDURES CT Chest with IV Contrast with 3D Dependent Workstation (11/08/2011 2:49 PM CDT) Anatomical Region Laterality Modality Abdomen, Pelvis Computed Tomography Specimen (Source) Anatomical Collection Method Collection Time Re ceived Time Location / / Volume Laterality 11/08/2011 2:49 PM CDT Narrative 11/08/2011 5:24 PM CDT 08-Nov-2011 14:49:00 ??Exam: CT CHEST w + 3D Depend WS Indications: Lymphoma NOS ORIGINAL REPORT - 08-Nov-2011 17:24:00 EXAM: CT scan of the Chest with IV contr ast including 3D maximum intensity projections/volume renderings on a non-independent workstation and CT scan of the Abdomen and Pelvis with IV contrast. ??No prior CTs are available for comparison. ? SUMMARY: No abnormal lymphadenopathy in the chest, abdomen or pelvis. ??Normal spleen size. ?? CHEST CT: No hilar, mediastinal or axill melisa lymphadenopathy. ??No pulmonary nodules or infiltrates. ??Mild apical fibrosis. ?? ABDOMEN AND PELVIS CT: No retroperitonea l or iliac lymphadenopathy. ??The spleen size is normal. ??Benign hepatic cysts. ??Cholelithiasis. Mild dilatation of the left gonadal vein measuring 10mm in diam eter. ??Subcutaneous inflammatory change s in the anterior abdominal wall most consistent with subcutaneous injection. ??Hypertrophic and degenerative changes in the lumbar spine. ??Benign vertebral hemangiomas at L3 and L4. ?? [id number] Electronically signed by: ?? Patricia Gallego MD. ?? [phone] 08-Nov-2011 1 7:24 Procedure Note Milagros Gallego M.D. - 11/19/2017Forma tting of this note might be different from the original. 08-Nov-2011 14:49:00 Exam: CT CHEST w + 3D Depend WS Indications: Lymphoma NOS ORIGINAL REPORT - 08-Nov-2011 17:24:00 EXAM: CT scan of the Chest with IV contr ast including 3D maximum intensity projections/volume renderings on a non-independent workstation and CT scan of the Abdomen and Pelvis with IV contrast. No prior CTs are available for comparison. SUMMARY: No abnormal lymphadenopathy in the chest, abdomen or pelvis. Normal spleen size. CHEST CT: No hilar, mediastinal or axill melisa lymphadenopathy. No pulmonary nodules or infiltrates. Mild apical fibrosis. ABDOMEN AND PELVIS CT: No retroperitonea l or iliac lymphadenopathy. The spleen size is normal. Benign hepatic cysts. Cholelithiasis. Mild dilatation of the left gonadal vein measuring 10mm in diameter. Subcutaneous inflammatory changes in the anterior abdominal wall most consistent with subcutaneous injection. Hypertrophic and degenerative changes in the lumbar spine. Benign vertebral hemangiomas at L3 and L4. [id number] Electronically signed by: Patricia Gallego MD. [phone] 08-Nov-2011 17:2 4 Rika Cameron M.D. IMG CT PROCEDURES HX Plasma Cell Labeling Index Profile (11/08/2011 10:40 AM CDT) athologist Signature HX %PC (Cyto 3 [facility] lg pos) LABORATORIES - [facility] HX Labeling 0.0 [facility] Index [facility] Comment . 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 ??A ccording to the [place] Stratification of Myeloma and Risk Adapted Therapy (mSMART) this labeling index res ult is in the standard risk category. ??However, comprehensive mSMART assessment requires correlation w ith cytogenetic analyses. ??If mSMART testing has been ordered, please see the Cytogenetics report for a complete interpretation of results. ??mSMART stratification is for multiple myeloma only, and is not in tended for application in other plasma cell proliferative or B-cell lymphoproliferative disorders. Reviewed by: MONY STORM 0 9:13:33 Blood Plasma Cell Light Chain . [facility] Comment: Monotypic kappa plasma cells pr esent. HX Flow Reviewed By. . [facility] Comment: The monotypic plasma cells are CD19 and CD45 positive. ??In addition,monotypic [place] B-cell lymphocytes are present. ??These findings suggest a lymphoplasmacytic proliferative disorder. Reviewed by: John Ya II, M.D. , Ph.D. 02:28:15 Specimen Anatomical Collection Method Collection Time Receive d Time (Source) Location / / Volume Laterality 11/08/2011 10:40 11/08/2011 AM CDT 10:40 AM CDT Rika Cameron M.D. LAB HISTORICAL ORDERS Performing Organization Address City/State/ZIP Code Phon e Number [facility] LABORATORIES - [address] [place], [place] [address] [facility] documented in this encounter Visit Diagnoses Not on filedocumented in this encounter
--- OUTSIDE RECORDS SUMMARY | 2022-07-02 09:19 | XMS_ITS | Encounter Summary ---
:1945 Author Organization [facility] Address [address] [place] [address] Care Team Providers Name Role Phone Unavailable Primary Care Provider Unavailable Encounter Details Date Type Department Care Team Description 2011 - 11/22/2011 Hospital Encounter HX NO MAPPING Social History [...]
--- OUTSIDE RECORDS SUMMARY | 2022-07-02 09:19 | XMS_ITS | Encounter Summary ---
:1945 Author Organization [facility] Address [address] [place] [address] Care Team Providers Name Role Phone Elsewhere, Pcp Primary Care Provider Unavailable Encounter Details Date Type Department Care Team Description 06/01/2012 Historical Ophthalmology RST OPH Arron Patricio M.D. [address] [place], [place] [phone] (Wo rk) Social History [...] or slept in a mcc (including now)? Sex Assigned at Date Recorded Female 03/05/2018 7:34 PM CDT documented as of this encounter Progress Notes Arron Patricio M.D. - 06/01/2012 9:09 AM CDT Eye General CHIEF COMPLAINT s/p biopsy of subconjunctival mass, left eye HISTORY OF PRESENT ILLNESS Vision better than when she was here in January. Offered a refraction today and pt declined, get her glasses at home. We come here for the hard stuff. 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 s/p 6 cycles of chemo Overall has improved from September, though might be some residual subconjunctival infiltration. Vision is stable and unlikely to be affected by this disease process. Further chemo would be per Dr. Cameron (seeing today). Will get SL photos again today, left eye. Photo Interpretation: Photos confirm and document clinical findings of diagnosis and are of sufficient quality to permit their use to follow disease progression. #[address] Waldenstrom [address] Cameron DIAGNOSIS #1 Subconjunctival lymphoma, left eye #2 Waldenstrom macroglobulinemia CDM Reports - [facility] Id: [id number] Status: Fnl documented in this encounter Plan of Treatment Not on filedocumented as of this encounter Visit Diagnoses Not on filedocumented in this encounter Care Teams Tube Machine Operator Helper Relationship Specialty Start Date End Date Elsewhere, Pcp PCP - General Family Medicine 03/04/21 documented as of this encounter
--- OUTSIDE RECORDS SUMMARY | 2022-07-02 09:19 | XMS_ITS | Encounter Summary ---
:1945 Author Organization [facility] Address [address] [place] [address] Care Team Providers Name Role Phone Unavailable Primary Care Provider Unavailable Encounter Details Date Type Department Care Team Description 03/07/2012 - 03/14/2012 Hospital Encounter HX NO MAPPING Social History [...] or slept in a [facility] (including now)? Sex Assigned at Date Recorded [...]
--- OUTSIDE RECORDS SUMMARY | 2022-07-02 09:19 | XMS_ITS | Encounter Summary ---
:1945 Author Organization [facility] Address [address] [place] [address] Care Team Providers Name Role Phone Unavailable Primary Care Provider Unavailable Encounter Details Date Type Department Care Team Description 01/18/2012 - Hospital Encounter HX RST INFUSION Jeff Betancur, 01/25/2012 THERAPY R.N. [address] [place] [address] Social History Tobacco Use Types Packs/Day Years [...] for the very basics like Not h eoly at all 04/09/2022 food, housing, medical care, [...] Sign Reading Time Taken Comments Blood Pressure 150/82 01/18/2012 3:35 PM CDT Pulse 82 01/18/2012 3:35 PM CDT Temperature - - Respiratory Rate 18 01/18/2012 3:35 PM CDT Oxygen Saturation - - Inhaled [...]
--- OUTSIDE RECORDS SUMMARY | 2022-07-02 09:19 | XMS_ITS | Encounter Summary ---
:1945 Author Organization [facility] Address [address] [place] [address] Care Team Providers Name Role Phone Elsewhere, Pcp Primary Care Provider Unavailable Encounter Details Date Type Department Care Team Description 10/28/2011 Historical Ophthalmology RST OPH Arron Patricio M.D. [address] [place], [place] [phone] (Wo rk) Social History [...] or relatives? How often do you attend mosque or More than 4 times per year 04/09/2022 judaism services? Do you belong to any clubs or Yes 04/09/2022 organizations such as mosque groups, unions, fraternal or athletic groups, or [...] encounter Progress Notes Arron Patricio M.D. - 10/28/2011 8:51 AM CST Eye General CHIEF COMPLAINT s/p biopsy of subconjunctival mass, left eye HISTORY OF PRESENT ILLNESS Slight increased blurred vision left eye, notes in the distance, since last visit. Patient denies ocular pain. Difficulty reading signs when driving, Increased mattering left eye when first awakens. 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 Plan: Get CT orbits axial and coronal to rule out orbital extension/component. Obtain Hematology opinion or advice and possible management or treatment options for lymphoma/#2. Patient would like to do all imaging at once if possible.....D/w Dr. Cameron.....will need CT chest, abdomen, pelvis too. Return after treatment to assess ocular mass. #2 Waldenstrom macroglobulinemia DIAGNOSIS #1 Subconjunctival lymphoma, left eye #2 Waldenstrom macroglobulinemia CDM Reports - [facility] Id: [id number] Status: Fnl documented in this encounter Plan of Treatment Not on filedocumented as of this encounter Visit Diagnoses Not on filedocumented in this encounter Care Teams Leather Repairer Relationship Specialty Start Date End Date Elsewhere, Pcp PCP - General Family Medicine 03/04/21 documented as of this encounter
--- OUTSIDE RECORDS SUMMARY | 2022-07-02 09:19 | XMS_ITS | Encounter Summary ---
:1945 Author Organization [facility] Address [address] [place] [address] Care Team Providers Name Role Phone Unavailable Primary Care Provider Unavailable Encounter Details Date Type Department Care Team Description 02/08/2012 - Hospital Encounter HX RST INFUSION Joyce Lianet 02/15/2012 THERAPY B, R.N. Social History Tobacco Use Types Packs/Day [...] More than 4 times per year 04/09/2022 latter-day services? Do you belong to any clubs [...] or slept in a correction (including now)? Sex Assigned at Date Recorded Female 03/05/2018 7:34 PM CDT documented as of this encounter Last Filed Vital Signs Vital Sign Reading Time Taken Comments Blood Pressure 147/80 02/08/2012 12:53 PM CDT Pulse 73 02/08/2012 12:53 PM CDT Temperature - - Respiratory Rate 18 02/08/2012 12:53 PM CDT Oxygen Saturation - - Inhaled [...]
--- OUTSIDE RECORDS SUMMARY | 2022-07-02 09:19 | XMS_ITS | Encounter Summary ---
:1945 Author Organization [facility] Address [address] [place] [address] Care Team Providers Name Role Phone Unavailable Primary Care Provider Unavailable Encounter Details Date Type Department Care Team Description 12/28/2011 Hospital Encounter HX NO MAPPING Natividad Monte Phar m.D., R.Ph. [address] [place], [place] [phone] Social History Tobacco Use Types Packs/Day Years [...] or relatives? How often do you attend caodaism or More than 4 times per year 04/09/2022 cheondoism services? Do you belong to any clubs or Yes 04/09/2022 organizations such as caodaism groups, unions, fraternal or athletic groups, or [...] Sign Reading Time Taken Comments Blood Pressure 157/76 12/28/2011 1:57 PM CDT Pulse 82 12/28/2011 1:57 PM CDT Temperature - - Respiratory Rate 18 12/28/2011 1:57 PM CDT Oxygen Saturation - - Inhaled [...]
--- OUTSIDE RECORDS SUMMARY | 2022-07-02 09:19 | XMS_ITS | Encounter Summary ---
:1945 Author Organization [facility] Address [address] [place] [address] Care Team Providers Name Role Phone Elsewhere, Pcp Primary Care Provider Unavailable Encounter Details Date Type Department Care Team Description 10/14/2011 Historical Ophthalmology RST OPH Arron Patricio M.D. [address] [place], [place] [phone] (Wo rk) Social History [...] place to sleep or slept in a half-way (including now)? Sex Assigned at Date Recorded Female 03/05/2018 7:34 PM CDT documented as of this encounter Progress Notes Arron Patricio M.D. - 10/14/2011 8:28 AM CST Eye General CHIEF COMPLAINT s/p conj bx Lt 1 day HISTORY OF PRESENT ILLNESS Patient denies ocular pain. IMPRESSION / REPORT / PLAN #1 s/p biopsy of subconjunctival mass, left eye Doing well. Ofloxacin 1 drop left eye 4x/day for [address] orbits to rule out orbital extension. Recheck in [address] Will call with biopsy results. #2 Waldenstrom macroglobulinemia DIAGNOSIS #1 s/p biopsy of subconjunctival mass, left eye #2 Waldenstrom macroglobulinemia CDM Reports - [facility] Id: [id number] Status: Fnl documented in this encounter Plan of Treatment Not on filedocumented as of this encounter Visit Diagnoses Not on filedocumented in this encounter Care Teams Inspector Heating And Refrigeration Relationship Specialty Start Date End Date Elsewhere, Pcp PCP - General Family Medicine 03/04/21 documented as of this encounter
[2022-07-02 09:59] LABS: Creatinine* 0.5 mg/dL (0.5-1.5); Estimated Glomerular Filt Rate 97 ml/min
--- NOTE | 2022-07-02 10:00 | CRLHL7_ITS ---
For Patients: As a result of the Century Cures Act, medical imaging exams and procedure reports are released immediately into your electronic medical record. You may view this report before your referring provider. If you have questions, please contact your health care provider. INDICATION: Mass of neck not otherwise specified. Tonsillectomy. COMPARISON: None. TECHNIQUE: A CT volumetric acquisition was performed of the neck during intravenous infusion of 71 cc of Isovue 370 nonionic intravenous contrast. FINDINGS: The CT images demonstrate normal aeration of the mastoid air cells and middle ear cavities. Subtotal opacification of the left maxillary sinus, a few left-sided ethmoid sinuses, and mucosal thickening/partial opacification within the left sphenoid sinus. The left ostiomeatal complex is obscured. The paranasal sinuses are otherwise clear. The nasopharynx appears normal. The parotid and submandibular glands are of normal size and have uniform enhancement. The oropharynx appears normal. The tonsils are surgically absent. The valleculae, epiglottis, aryepiglottic folds and piriform sinuses appear normal. There is a normal appearance of the larynx and subglottic trachea. The thyroid gland is of normal size and has uniform density. There is no evidence of lymphadenopathy within the anterior and posterior cervical triangles or within the supraclavicular region. Clear lung apices. Normal medial clavicular heads. Mild degenerative disc disease at C5 and C6. IMPRESSION: No neck mass identified. Mucosal thickening and partial opacification within the left maxillary sinus, a few left-sided ethmoid air cell, and left sphenoid sinuses as described above. Please note that all CT scans at this facility use dose modulation, iterative reconstruction, and/or weight-based dosing when appropriate to reduce radiation dose to as low as reasonably achievable. Dictated by Kenny Jacobo MD @ 07/02/2022 11:29:46 AM (Electronically Signed)
== END 2022-07-02 09:08 | disposition home or self-care (01) ==
LOC: CT 09:07
PROVIDERS: PCP Internal Medicine; Visit Provider Internal Medicine
DX: R22.1 Localized swelling, mass and lump, neck (principal)
CPT/HCPCS: 36415; 70491; 82565; Q9967

== ENCOUNTER 2022-07-10 23:19 | Emergency (ER) | payer MEDICARE, BC, SELFPAY ==
[2022-07-10 23:36] VITALS: BP 192/103; PULSE 84; RESP 16; TEMP 36.2; O2SAT 97
--- NOTE | 2022-07-10 23:37 | CRLHL7_ITS ---
For Patients: As a result of the Century Cures Act, medical imaging exams and procedure reports are released immediately into your electronic medical record. You may view this report before your referring provider. If you have questions, please contact your health care provider. INDICATION: Right-sided weakness.. TECHNIQUE: Head CT without contrast. COMPARISON: None. FINDINGS: CSF spaces: Within normal limits for age. Brain parenchyma and extra-axial spaces: There are nonspecific low attenuation white matter changes consistent with chronic microvascular disease. No sign of mass, hemorrhage, or midline shift. Skull base and calvarium: Opacification the left maxillary sinus otherwise, the visualized paranasal sinuses and mastoid air cells demonstrate no acute or significant findings. The visualized orbits are grossly unremarkable. Bilateral lens prostheses. No skull fractures. IMPRESSION: No definite acute intra cranial process identified. If there is persistent concern for acute infarct, consider further evaluation with MRI. Nonspecific low-attenuation white matter changes consistent chronic microvascular disease. Left maxillary sinus disease. Please note that all CT scans at this facility use dose modulation, iterative reconstruction, and/or weight-based dosing when appropriate to reduce radiation dose to as low as reasonably achievable. Dictated by Sylvie Rogers MD @ 07/11/2022 12:29:55 AM (Electronically Signed)
--- NOTE | 2022-07-10 23:57 | ED_ITS ---
HPI - Weakness General Time Seen by Provider: 23:58 Date Seen: 07/10/22 Chief complaint: Weakness Stated complaint: Right side weakness Time Seen by Provider: 07/10/22 23:57 Source: patient, RN notes reviewed and old records reviewed Mode of arrival: ambulatory Limitations: no limitations History of Present Illness HPI Narrative: Sarah is a very pleasant 76-year-old female with a history of Waldenstrom's macroglobulinemia who presents to the emergency room with ongoing symptoms of right hand and leg tingling. Patient notes that throughout the afternoon of July 10 she had been experiencing some tingling in her right sided extremities. She states initially this tingling was in her toes and her right leg but she felt her pulse in her foot and felt that that was okay. She states it felt like her toes were asleep. This occurred after her nap. She states that it faded to the point where was only in her toes but then she noticed that this would occur in her hand and fingers. She had no loss of strength during this time. She notes that she took her evening shower and had symptoms in both her arm and hand fingers and toes and decided to go to bed at approximately 0750. She went to sleep at 0815 and awoke at 2230 hours and states that her right arm and her right leg felt like they were heavy logs. In spite of that she was able to walk downstairs and had no difficulty holding onto items or reaching for items. Because she felt her symptoms had worsened she and her presented to the [facility] emergency room shortly before midnight. As I am seeing her she has already returned from CT. Has a contrast allergy with recent rash. At this time patient notes that she is feeling better. She notes that she still has some residual tingling in her right fingertips but only notices that when she tries to touch with her thumb. She notes no loss of strength and shows me that she has a negative Romberg. 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 She is not currently on any treatment. Patient did take a whole aspirin this afternoon. Otherwise, she is not on any blood thinners. She denies rapid heart rate or skipped beats. She denies shortness of breath. Patient notes that she did have a sinus infection 2 weeks ago but that is now clearing up. She still has a mild cough during the day and often laryngitis at night but she states even that is improved. Today she would have an occasional headache but relates this to the sinus infection and notes that that is improved as well. No recent fever or chills. No dysuria hematuria. No nausea vomiting. Also notes history of hyponatremia in the past. Related Data Home Medications Medication Instructions Recorded Confirmed ascorbic acid (vitamin C) 1,000 mg 1 g PO DAILY 07/10/22 07/10/22 capsule calcium carbonate 500 mg calcium 500 mg PO DAILY 07/10/22 07/10/22 (1,250 mg) tablet cholecalciferol (vitamin D3) 100 400 unit PO DAILY 07/10/22 07/10/22 mcg (4,000 unit) tablet cod liver oil 1 cap PO DAILY 07/10/22 07/10/22 magnesium oxide 400 mg PO DAILY 07/10/22 07/10/22 turmeric 400 mg capsule 450 mg PO DAILY 07/10/22 07/10/22 vitamins A and D 1 cap PO DAILY 07/10/22 07/10/22 zinc sulfate 50 mg zinc (220 mg) 50 mg PO DAILY 07/10/22 07/10/22 capsule Allergies Allergy/AdvReac Type Severity Reaction Status Date / Time contrast dye Allergy Mild Rash Uncoded 07/10/22 23:58 Review of Systems Status of ROS: Reports: 10 or more systems reviewed and unremarkable except as noted in History and below Const: Denies: fever, chills or fatigue Eyes: Denies: change in vision ENMT: Reports: hoarseness (Improving); Denies: throat pain or difficulty swallowing Cardio: Denies: chest pain, palpitations, swelling of feet/ankles or shortness of breath with exertion Resp: Reports: cough (Mild); Denies: shortness of breath or wheezing GI: Denies: abdominal pain, nausea, vomiting or difficulty swallowing : Denies: painful urination Musculo: Denies: back pain or extremity swelling Integ/Breast: Reports: changes in skin color (Right posterior medial half with resolving ecchymosis.) Neuro: Reports: headache and numbness in extremities; Denies: weakness in extremities, lack of coordination, dizziness or confusion Endo: Denies: fatigue Allergy/Immuno: Denies: wheezing PFSH [facility] Medical History Elevated blood pressure reading Encounter for screening for severe acute respiratory syndrome coronavirus 2 (SARS-CoV-2) infection Social History Smoking Status: Never smoker How often do you have a drink containing alcohol: never AUDIT-C Alcohol total score: 0 Non-prescribed substance use: denies use Exam Narrative: Exam Narrative: Patient is alert and oriented. No acute distress. Mentation normal and very well-spoken. EOM is full. Pupils are equal round reactive. Left eyelid ptosis. Raising of eyebrows symmetrical. Puffing of the cheeks and smile symmetrical. Tongue is midline. Neck is supple. Heart with a regular rate and rhythm. Rare additional systole with without compensatory pause. No murmur or rub. Lungs are clear in all lung cobb. Patient has good trunk strengthen able to sit up without difficulty. Lower extremities without edema. No calf tenderness. No significant erythema or ecchymosis noted on the right calf. Upper and lower extremity strength 5/5. DTRs on lower extremities intact at 1 to 2+. Visual cobb intact bilaterally. Romberg is negative. Finger to nose intact. Subjected altered sensation on fingertips especially 4 in 5 and toes. Const: Vital Signs, click to edit/add: Vital Signs - 24 hr 07/10/22 23:36 07/11/22 00:04 07/11/22 01:00 Temperature 97.2 F L Pulse Rate Pulse Rate [Left P ulse Oximeter] 84 81 Respiratory Rate 16 16 Blood Pressure Blood Pressure [Le ft Upper Arm] 192/103 H 185/94 H 187/83 H Pulse Oximetry 97 96 Oxygen Delivery Me thod Room Air Room Air 07/11/22 02:00 07/11/22 03:00 07/11/22 04:00 Temperature Pulse Rate Pulse Rate [Left P ulse Oximeter] 85 85 77 Respiratory Rate 16 16 Blood Pressure Blood Pressure [Le ft Upper Arm] 162/79 H 165/84 H 149/70 H Pulse Oximetry 96 96 98 Oxygen Delivery Me thod Room Air Room Air Room Air 07/11/22 05:01 07/11/22 06:01 Temperature Pulse Rate 73 70 Pulse Rate [Left P ulse Oximeter] Respiratory Rate Blood Pressure 150/81 H 150/75 H Blood Pressure [Le ft Upper Arm] Pulse Oximetry 95 95 Oxygen Delivery Me thod Documenting provider has reviewed patient's vital signs: yes Course Course Hospital Course: Patient noted to have waxing and waning subjective alteration of sensation since approximately 1400 hours on 07/10/2022. Worsened during sleeping hours and now improving once again. Head CT done and awaiting results at this time. Will also check laboratory values to include a CBC, comprehensive panel, CRP, urinalysis, troponin as well as EKG. Unable to follow with CT a given patient's recently diagnosed contrast allergy. Reevaluation(s) Reevaluation #1: Patient noted to have improvement of her symptoms. I did state to her that I had spoken with neurology and they feel MRI is of course the next step. We do not have MRI coverage at this time but will have that available to us tomorrow morning at approximately 0900 hours. Neurology felt that this was okay. I will keep patient in the ED with neuro checks. Will give additional dose of aspirin 324. Patient is tested positive for COVID. However she describes illness 2 weeks ago in which she had sinus type symptoms that have been gradually resolving. In addition 1 month ago she had 2-3 days of a fever like illness. At neither of those times did she test for COVID. I have added a COVID antigen as I suspect that the PCR is actually picking up old infection. Reevaluation #2: Patient observed overnight without any changes. Vital Signs Vital signs: Initial Vital Signs Temperature 97.2 F L 07/10/22 23:36 Temperature Source Temporal Artery Scan 07/10/22 23:36 Pulse Rate 84 07/10/22 23:36 Pulse Rhythm 07/10/22 23:36 Respiratory Rate 16 07/10/22 23:36 Blood Pressure 192/103 H 07/10/22 23:36 Blood Pressure Mean 132 07/10/22 23:36 Blood Pressure Position Sitting 07/10/22 23:36 Pulse Oximetry 97 07/10/22 23:36 Oxygen Delivery Method 07/10/22 23:36 Vital Signs Temperature 97.2 F L 07/10/22 23:36 Pulse Rate 84 07/10/22 23:36 Respiratory Rate 16 07/10/22 23:36 Blood Pressure 192/103 H 07/10/22 23:36 Pulse Oximetry 97 07/10/22 23:36 Oxygen Delivery Method 07/10/22 23:36 Temperature 97.2 F L 07/10/22 23:36 Pulse Rate 70 07/11/22 06:01 Respiratory Rate 16 07/11/22 04:00 Blood Pressure 150/75 H 07/11/22 06:01 Pulse Oximetry 95 07/11/22 06:01 Oxygen Delivery Method 07/11/22 04:00 MDM - Weakness MDM Narrative Medical decision making narrative: 1. Right-sided altered sensation -head CT negative. NIHSS 0. Spoke to Neurology who felt that MRI was next step. MRI scheduled for 0900 hours this morning. 2.Waldenstrom's macroglobulinemia-stable 3. COVID positive-patient is COVID positive on PCR testing. However, given recent ?sinus infection? 2 weeks ago and a febrile illness for about month ago I elected to do a antigen thinking that perhaps this was a reflection of past infection. Antigen was negative. Patient has no COVID symptoms at this time. If, however, she develops URI type symptoms she would be a candidate for Paxilovid given her Waldentroms. 3. Disposition -this case was be signed out to my partner Dr. Tariq for radiological review and disposition. Medical Records Attestation: I reviewed the patient's medical records. Lab Data Attestation: I reviewed the patient's lab results. Labs: Lab Results 07/11/22 07/11/22 07/11/22 Range/Units 00:05 00:47 01:10 WBC 5.17 (4.50-11.00) K/uL RBC 4.53 (4.00-5.20) m/uL Hgb 13.2 (12.0-16.0) gm/dL Hct 39.8 (33.0-51.0) % MCV 88 (80-100) fL MCH 29 (26-34) pg MCHC 33 (32-36) gm/dL RDW Coeff of Dilia 13.0 (11.5-15.5) % Plt Count 249 (140-440) K/uL Neut % (Auto) 73.1 H (42.0-72.0) % Lymph % (Auto) 15.9 L (20-44) % [place] % (Auto) 7.5 (0.0-11.0) % Eos % (Auto) 3.1 (0.0-7.0) % Baso % (Auto) 0.2 (0.0-3.0) % Neut # (Auto) 3.80 (1.7-7.0) K/uL Lymph # (Auto) 0.80 L (0.90-2.90) K/uL [place] # (Auto) 0.40 (0.00-0.90) K/UL Eos # (Auto) 0.16 (0.00-0.50) K/uL Baso # (Auto) 0.01 (0.00-0.30) K/uL Abs Immat Gran (auto) 0.01 (0.00-0.30) K/uL Imm/Tot Granulo (auto) 0.2 % Sodium (135-149) mmol/L Potassium (3.6-5.1) mmol/L Chloride (96-114) mmol/L Carbon Dioxide (20-32) mmol/L BUN (7-30) mg/dL Creatinine (0.5-1.5) mg/dL Estimated Creat Clear Estimated GFR ml/min Glucose (60-115) mg/dL Calcium (8.4-10.6) mg/dL Total Bilirubin (0.1-1.5) mg/dL AST (12-35) U/L ALT (4-35) U/L Alkaline Phosphatase (40-150) U/L Troponin I (0.01-0.04) ng/mL C-Reactive Protein (0.5-1.0) mg/dL Total Protein (6.0-8.3) g/dL Albumin (3.3-5.0) g/dL Urine Color Yellow (Yellow) Urine Appearance Clear (Clear) Urine pH 7.5 (5.0-8.5) Ur Specific [place] 1.015 (1.000-1.030) Urine Protein Negative (Negative) Urine Glucose (UA) Negative (Negative) Urine Ketones Negative (Negative) Urine Blood Negative (Negative) Urine Nitrite Negative (Negative) Urine Bilirubin Negative (Negative) Urine Urobilinogen 0.2 (0.2-1.0) Ur Leukocyte Esterase Negative (Negative) Urine RBC 0-2 (0-2) Urine WBC 0-2 (0-5) Ur Squamous Epith Cells None (None-Few) Urine Bacteria None (None) SARS-CoV-2 (PCR) POSITIVE SARS-CoV-2 A (Negative) SARS-CoV-2 Ag (Rapid) (Negative) 07/11/22 07/11/22 Range/Units 01:10 01:45 WBC (4.50-11.00) K/uL RBC (4.00-5.20) m/uL Hgb (12.0-16.0) gm/dL Hct (33.0-51.0) % MCV (80-100) fL MCH (26-34) pg MCHC (32-36) gm/dL RDW Coeff of Dilia (11.5-15.5) % Plt Count (140-440) K/uL Neut % (Auto) (42.0-72.0) % Lymph % (Auto) (20-44) % [place] % (Auto) (0.0-11.0) % Eos % (Auto) (0.0-7.0) % Baso % (Auto) (0.0-3.0) % Neut # (Auto) (1.7-7.0) K/uL Lymph # (Auto) (0.90-2.90) K/uL [place] # (Auto) (0.00-0.90) K/UL Eos # (Auto) (0.00-0.50) K/uL Baso # (Auto) (0.00-0.30) K/uL Abs Immat Gran (auto) (0.00-0.30) K/uL Imm/Tot Granulo (auto) % Sodium 137 (135-149) mmol/L Potassium 3.7 (3.6-5.1) mmol/L Chloride 100 (96-114) mmol/L Carbon Dioxide 30 (20-32) mmol/L BUN 18 (7-30) mg/dL Creatinine 0.6 (0.5-1.5) mg/dL Estimated Creat Clear 48.92 Estimated GFR 92 ml/min Glucose 126 H (60-115) mg/dL Calcium 8.8 (8.4-10.6) mg/dL Total Bilirubin 0.5 (0.1-1.5) mg/dL AST 27 (12-35) U/L ALT 29 (4-35) U/L Alkaline Phosphatase 70 (40-150) U/L Troponin I < 0.01 L (0.01-0.04) ng/mL C-Reactive Protein < 0.5 L (0.5-1.0) mg/dL Total Protein 7.7 (6.0-8.3) g/dL Albumin 4.4 (3.3-5.0) g/dL Urine Color (Yellow) Urine Appearance (Clear) Urine pH (5.0-8.5) Ur Specific [place] (1.000-1.030) Urine Protein (Negative) Urine Glucose (UA) (Negative) Urine Ketones (Negative) Urine Blood (Negative) Urine Nitrite (Negative) Urine Bilirubin (Negative) Urine Urobilinogen (0.2-1.0) Ur Leukocyte Esterase (Negative) Urine RBC (0-2) Urine WBC (0-5) Ur Squamous Epith Cells (None-Few) Urine Bacteria (None) SARS-CoV-2 (PCR) (Negative) SARS-CoV-2 Ag (Rapid) Negative (Negative) Imaging Data CT scan - head: Attestation: I have reviewed the pertinent imaging results. My impression: No acute evidence of bleed or stroke Radiologist's impression: CSF spaces: Within normal limits for age.? Brain parenchyma and extra-axial spaces: There are nonspecific low attenuation white matter changes consistent with chronic microvascular disease.? No sign of mass, hemorrhage, or midline shift.? Skull base and calvarium: Opacification the left maxillary sinus otherwise, the visualized paranasal sinuses and mastoid air cells demonstrate no acute or significant findings.? The visualized orbits are grossly unremarkable. Bilateral lens prostheses. No skull fractures.? ? ? IMPRESSION: No definite acute intra cranial process identified. If there is persistent concern for acute infarct, consider further evaluation with MRI. Nonspecific low-attenuation white matter changes consistent chronic microvascular disease. Left maxillary sinus disease. ECG Data Attestation: I personally reviewed and interpreted this ECG as follows: ECG interpretation date: 07/11/22 ECG interpretation time: 00:40 Interpretation: EKG by my read shows sinus rhythm at a rate of 75. I do not note any acute ST or T-wave changes. Perhaps evidence of old septal infarct. Discharge Plan Discharge Clinical Impression: Waldenstrom's macroglobulinemia, Neurological complaint Patient Disposition: Home, Self-Care Condition: Improved Additional Instructions: If you would developed COVID like symptoms with fever, runny nose, cough, contact your physician as you are a candidate for the antiviral called Paxlovid Prescriptions: No Action ascorbic acid (vitamin C) 1,000 mg capsule 1 g PO DAILY zinc sulfate 50 mg zinc (220 mg) capsule 50 mg PO DAILY turmeric 400 mg capsule 450 mg PO DAILY magnesium oxide 400 mg magnesium tablet 400 mg PO DAILY vitamins A and D Capsule 1 cap PO DAILY Rx Instructions: administer with a meal calcium carbonate 500 mg calcium (1,250 mg) tablet 500 mg PO DAILY cod liver oil Capsule 1 cap PO DAILY cholecalciferol (vitamin D3) 100 mcg (4,000 unit) tablet 400 unit PO DAILY Follow Up/Referrals: Brijesh Ken MD [Primary Care Provider] - Stand Alone Forms: [facility] Info Instructions
[2022-07-11] VITALS (10 sets, daily range): BP systolic 149–187; BP diastolic 70–94; PULSE 70–85; RESP 16–18; O2SAT 95–98
[2022-07-11 00:30] LABS: Appearance Urine Clear (Clear); Bilirubin Urine Negative (Negative); Blood Urine Negative (Negative); Color Urine Yellow (Yellow); Glucose Urine Negative (Negative); Ketones Urine Negative (Negative); Leukocyte Esterase Urine Negative (Negative); Nitrite Urine Negative (Negative); Protein Urine Negative (Negative); Specific Gravity Urine 1.015 (1.000-1.030); Urobilinogen Urine 0.2 (0.2-1.0); pH Urine 7.5 (5.0-8.5)
--- OUTSIDE RECORDS SUMMARY | 2022-07-11 01:12 | XMS_ITS | Clinical Summary ---
:1945 Author Organization [employer] [facility] [place] [address] Care Team Providers Name Role Phone Brijesh [...] Comments Blood Pressure 158/79 08/31/2014 2:51 PM DIRECTOR ENVIRONMENTAL Pulse 76 08/31/2014 2:51 PM DIRECTOR ENVIRONMENTAL Temperature 36.8 ??C (98.2 ??F) 08/31/2014 2:51 PM DIRECTOR ENVIRONMENTAL Respiratory Rate - - Oxygen Saturation 97% 08/31/2014 2:51 PM DIRECTOR ENVIRONMENTAL Inhaled Oxygen Concentration - - Weight 71.7 kg (158 lb) 08/31/2014 2:51 PM DIRECTOR ENVIRONMENTAL Height 165.1 cm (5' 5) 07/11/2009 8:05 AM DIRECTOR ENVIRONMENTAL Body Mass Index 26.29 07/11/2009 8:05 AM DIRECTOR ENVIRONMENTAL Plan of Treatment Health Maintenance Due Date [...] Type Group BLUE CROSS MR BLUE CROSS [id number] 2014-Giselle GOMEZ [id number] [facility] BLUE MR luma [facility] [place] PB ONLY [id number] (Work) [id number] Care Teams [employer] Dispatcher Relationship Specialty Start Date End Date Brijesh Ken MD PCP - General 08/31/141999 [place] [address]
--- OUTSIDE RECORDS SUMMARY | 2022-07-11 01:13 | XMS_ITS | Encounter Summary ---
:1945 Author Organization [facility] Address [address] [place] [address] Care Team Providers Name Role Phone Elsewhere, Pcp Primary Care Provider Unavailable Reason for Referral Outpatient (Routine) - Authorized Specialty Diagnoses / Procedures Referred By Contact Refer red To Contact Video Medicine Diagnoses Waldenstrom's Macroglobulinemia (HCC) [facility] Arturo Mckeon M.D. [address] [place] [address] Referral ID Status Reason Start Date Expiration Date Visits V isits Requested Authorized [id number] Authorized 04/16/2022 04/16/2023 1 1 Reason for Visit Outpatient (Routine) - Closed Specialty Diagnoses / Procedures Referred By Contact Refer red To Contact Video Medicine Diagnoses Waldenstrom's Macroglobulinemia (HCC) [facility] Arturo Mckeon M.D. [address] [place] [address] Referral ID Status Reason Start Date Expiration Date Visits Requ ested Visits Authorized [id number] Closed 10/06/2021 10/06/2022 1 1 Encounter Details Date Type Department Care Team Description 04/16/2022 Telemedicine Division of [facility] Waldenstrom's Hematology in Arturo Ricks, Macroglobu linemia (HCC) Ana Castillo [place] [address] [facility] [address] [place] [id number] [phone] Social History Tobacco Use Types Packs/Day Years [...] audio/video technology by Soraya Ricks M.D. in [facility] to the patient in Patient's Home HISTORY OF PRESENT ILLNESS Patient is a 76 y.o. woman with Waldentrom's macroglobulinemia whose hematological history may be summarized as follows: 1. 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 [id number]: Treated with rituximab, intermittently, totaling 10 different [...] shows M spike of 0.8,stable from prior. [place] free light chain is 2.6 with a [...] will do labs locally and send to [facility] as a mail in. I will review [...] (HCC) documented in this encounter Care Teams Engineering Department Chair Relationship Specialty Start Date End Date Elsewhere, Pcp PCP - General Family Medicine 03/04/21 documented as of this encounter
--- OUTSIDE RECORDS SUMMARY | 2022-07-11 01:13 | XMS_ITS | Encounter Summary ---
:1945 Author Organization [facility] Address [address] [place] [address] Care Team Providers Name Role Phone Elsewhere, [...] on filedocumented in this encounter Care Teams Carbon Grinder Relationship Specialty Start Date End Date Elsewhere, Pcp PCP - General Family Medicine 03/04/21 documented as of this encounter
--- OUTSIDE RECORDS SUMMARY | 2022-07-11 01:13 | XMS_ITS | Encounter Summary ---
:1945 Author Organization [facility] Address [address] [place] [address] Care Team Providers Name Role Phone Elsewhere, [...] or relatives? How often do you attend hoahaoism or More than 4 times per year 04/09/2022 sikh services? Do you belong to any clubs or Yes 04/09/2022 organizations such as hoahaoism groups, unions, fraternal or athletic groups, or [...] or slept in a half-way (including now)? Education Answer Date Recorded What [...] on filedocumented in this encounter Care Teams Senior Officer Relationship Specialty Start Date End Date Elsewhere, Pcp PCP - General Family Medicine 03/04/21 documented as of this encounter
--- OUTSIDE RECORDS SUMMARY | 2022-07-11 01:13 | XMS_ITS | Encounter Summary ---
:1945 Author Organization [facility] Address [address] [place] [address] Care Team Providers Name Role Phone Elsewhere, [...] or relatives? How often do you attend hinduism or More than 4 times per year 04/09/2022 restoration services? Do you belong to any clubs or Yes 04/09/2022 organizations such as hinduism groups, unions, fraternal or athletic groups, or [...] on filedocumented in this encounter Care Teams Research Soil Scientist Relationship Specialty Start Date End Date Elsewhere, Pcp PCP - General Family Medicine 03/04/21 documented as of this encounter
--- OUTSIDE RECORDS SUMMARY | 2022-07-11 01:13 | XMS_ITS | Clinical Summary ---
:1945 Author Organization [facility] Address [address] [place] [address] Care Team Providers Name Role Phone Elsewhere, Pcp Primary Care Provider Unavailable Source Comments Patient records contain information from all sites at [facility]. For routine questions regarding patient records, call [phone] during business hours, M-F 8:00 AM - 5:00 PM Central Time. Record requests for emergency care only can be directed to [phone] at any time.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 How often do you attend taoism or More than 4 times per year 04/09/2022 religion services? Do you belong to any clubs or Yes 04/09/2022 organizations such as taoism groups, unions, fraternal or athletic groups, or [...] or slept in a prison (including now)? Education Answer Date Recorded What [...] Completed 12/14/2021 Medical Devices Implanted Type Area Vision Care Associate Device Shelf Model / Identifier Expiration Serial / Date Lot Breast Other Breast Right: Other Breast Description: Marker Conversions - Default Historical Implant Device Mesh or Patch Abdomen Implanted: 11/04/2016 (Quantity not on file) Description: Body Location - Abdominal. Device Status Text - MeshPatch. Lens Nasir 17.0d X 6.0mm - [id number] Ocular Lens Other/Leg acy - See [facility] Implanted: Qty: 1 on 10/23/2014 Implant Description Description: Device Vision Care Associate - [employer]. Body Location - Other. Left. Device Status Text - [id number]. Lens Tcn [id number] Bicnvx +17.5d - [id number] - [id number] Ocular Lens Right: Eye [employer] 11/02/2024 [id number] / Implanted: Qty: 1 on 03/04/2021 by Arron Patricio M.D. at [facility] (Previously GUY) [id number] / Procedures Procedure Name Priority Date/Time Associated Comments Diagnosis OPHTHALMOLOGY IMAGE Routine 05/11/2022 12:20 Resu lts for this EXAM AM CDT procedure are i n the results section. OPHTHALMOLOGY IMAGE Routine 05/11/2022 12:15 Resu lts for this EXAM AM CDT procedure are i n the results section. OPHTHALMOLOGY IMAGE Routine 05/11/2022 12:00 Resu lts for this EXAM AM CDT procedure are i n the results section. from Last 3 Months [...] Code Phon e Number IIMS IIMS NA from Last 3 Months Insurance Payer Benefit Plan Subscriber ID Effective Phone Address Typ e / Group Dates MEDICARE MEDICARE A [id number] 2009-Pres [address] [place] [address] BLUE CROSS BCBS [place] [id number] 2016-Pres [phone] PO SHRUTHI X Cost Share BLUE SHIELD BLUE COST ent [phone] [place] [address] Care Teams Gravure Press Set Up Operator Relationship Specialty Start Date End Date Elsewhere, Pcp PCP - General Family Medicine 03/04/21
--- OUTSIDE RECORDS SUMMARY | 2022-07-11 01:13 | XMS_ITS | Encounter Summary ---
:1945 Author Organization [facility] Address [address] [place] [address] Care Team Providers Name Role Phone Elsewhere, Pcp Primary Care Provider Unavailable Encounter Details Date Type Department Care Team Description 10/28/2021 Orders Only Division of [place] [facility]'s Hematology in Arturo Ricks, Macroglobu samaria (HCC) Ana Castillo (Primary Dx) [place] [address] [place] [address] [address] [place] [phone] [phone] Social History Tobacco Use Types Packs/Day Years [...] More than 4 times per year 04/09/2022 jehovah's witness services? Do you belong to any clubs [...] Analysis Performed At Patho logist Time Signature [place] Free 2.58 (H) 0.3300 - 04/08/2022 [facility] Light Chain, S 1.94 mg/dL 10:03 AM CDT Lambda Free 0.4300 (L) 0.5700 - 04/08/2022 [facility] Light Chain, S 2.63 mg/dL 10:18 AM CDT [place]/Lambda 6.00 (H) 0.2600 - 04/08/2022 [facility] FLC Ratio 1.65 10:18 AM CDT Specimen Anatomical Collection Method Collection Time Receive d Time (Source) Location / / Volume Laterality Blood (Blood, 04/07/2022 8:15 AM 04/08/20 6:23 Venous) CDT AM CDT Resulting Agency Comment Mailed In Specimen Arturo Ricks M.D. LAB BLOOD ADD-ON Performing Organization Address City/State/ZIP Code Phon e Number [facility] [address] [place], [place] [address] SUPPORT CENTER [facility] [place] [address] Laboratory Medicine and Pathology [address] [place] (ABNORMAL) Electrophoresis, Protein (04/07/2022 8:15 AM CDT) [facility] gist Method Time Signature Total Protein, 6.7 [...] CENTER [address] [place], [place] [address] SUPPORT CENTER [facility] [place] [address] Laboratory Medicine and Pathology [address] [...] REGIONAL MEDICAL [facility] LABORATORIES - [address] [place], [place] [address] [facility] [place] [address] Laboratories-[facility] [address] [facility] (ABNORMAL) Comprehensive Metabolic Panel (04/07/2022 8:15 AM [...] 04/07/2022 DTL Black/ mL/min/BSA 8:03 PM CDT Malian Comment: ----ADDITIONAL INFORMATION---- Estimated GFR calculated using [...] Number [facility] LABORATORIES - [address] [place] [address] [facility] [place] [address] Laboratories-[facility] 200 [facility] (ABNORMAL) CBC with Differential, Blood (04/07/2022 8:15 AM CDT) [facility] gist Method Time Signature Hemoglobin 13.0 [...] MEDICAL CENTER LABORATORIES - [address] [place], [place] [address] [facility] [place] [address] Laboratories-[facility] [address] documented in this encounter Visit Diagnoses Diagnosis Waldenstrom's Macroglobulinemia (HCC) - Primary documented in this encounter Care Teams Machine Pecan Gatherer Relationship Specialty Start Date End Date Elsewhere, Pcp PCP - General Family Medicine 03/04/21 documented as of this encounter
--- OUTSIDE RECORDS SUMMARY | 2022-07-11 01:13 | XMS_ITS | Encounter Summary ---
:1945 Author Organization [facility] Address [address] [place] [address] Care Team Providers Name Role Phone Elsewhere, [...] or relatives? How often do you attend mandaen or More than 4 times per year 04/09/2022 christianity services? Do you belong to any clubs or Yes 04/09/2022 organizations such as mandaen groups, unions, fraternal or athletic groups, or [...] on filedocumented in this encounter Care Teams Oil Drilling Engineer Relationship Specialty Start Date End Date Elsewhere, Pcp PCP - General Family Medicine 03/04/21 documented as of this encounter
--- OUTSIDE RECORDS SUMMARY | 2022-07-11 01:13 | XMS_ITS | Encounter Summary ---
:1945 Author Organization [facility] Address [address] [place] [address] Care Team Providers Name Role Phone Elsewhere, [...] More than 4 times per year 04/09/2022 yazdanism services? Do you belong to any clubs [...] on filedocumented in this encounter Care Teams Technical Laboratory Asst Relationship Specialty Start Date End Date Elsewhere, Pcp PCP - General Family Medicine 03/04/21 documented as of this encounter
--- OUTSIDE RECORDS SUMMARY | 2022-07-11 01:13 | XMS_ITS | Encounter Summary ---
:1945 Author Organization [facility] Address [address] [place] [address] Care Team Providers Name Role Phone Elsewhere, Pcp Primary Care Provider Unavailable Encounter Details Date Type Department Care Team Description 04/19/2022 Orders Only Division of Daisy López's Hematology in A, R.N. Macroglobulinemia (HCC) [place], [place] [address] [place] [address] (Primary Dx) [address] [place] [phone] Social History Tobacco Use Types Packs/Day Years [...] or relatives? How often do you attend catholic or More than 4 times per year 04/09/2022 nondenominational services? Do you belong to any clubs or Yes 04/09/2022 organizations such as catholic groups, unions, fraternal or athletic groups, [...] Primary documented in this encounter Care Teams Marketing Finance Manager Relationship Specialty Start Date End Date Elsewhere, Pcp PCP - General Family Medicine 03/04/21 documented as of this encounter
--- OUTSIDE RECORDS SUMMARY | 2022-07-11 01:13 | XMS_ITS | Encounter Summary ---
:1945 Author Organization [facility] Address [address] [place] [address] Care Team Providers Name Role Phone Elsewhere, Pcp Primary Care Provider Unavailable Encounter Details Date Type Department Care Team Description 03/17/2022 Hospital Department of [place] Wal[facility]strom's Encounter Laboratory Arturo Ricks, Macroglobul inemia (HCC) Medicine and M.D. Pathology, [place] [address] [place] [address] [facility] [address] [place] [phone] [place] [address] (Work) [place], [place] [phone] [phone] (Fax) [phone] Social History Tobacco Use Types Packs/Day Years [...] More than 4 times per year 04/09/2022 mu-ism services? Do you belong to any clubs [...] daily. 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) [employer] by [employer] TURMERIC ROOT EXTRACT Take 1 tablet by [...] Analysis Performed At Patho logist Time Signature [place] Free 2.58 (H) 0.3300 - 04/08/2022 [facility] Light Chain, S 1.94 mg/dL 10:03 AM CDT Lambda Free 0.4300 (L) 0.5700 - 04/08/2022 [facility] Light Chain, S 2.63 mg/dL 10:18 AM CDT [place]/Lambda 6.00 (H) 0.2600 - 04/08/2022 [facility] FLC Ratio 1.65 10:18 AM CDT Specimen Anatomical Collection Method Collection Time Receive d Time (Source) Location / / Volume Laterality Blood (Blood, 04/07/2022 8:15 AM 04/08/20 22 6:23 Venous) CDT AM CDT Resulting Agency Comment Mailed In Specimen Arturo Ricks M.D. LAB BLOOD ADD-ON Performing Organization Address City/State/ZIP Code Phon e Number [facility] [address] [place], [place] [address] SUPPORT CENTER [facility] [place] [address] Laboratory Medicine and Pathology [address] [...] [facility]/ZIP Code Phon e Number [facility] [address] [place], [place] [address] SUPPORT CENTER [facility] [place] [address] Laboratory Medicine and Pathology [address] [...] City/State/ZIP Code Phon e Number [facility] LABORATORIES - [address] [place], [place] [address] [place] [address] Laboratories-[facility] [address] (ABNORMAL) Comprehensive Metabolic [...] 04/07/2022 DTL Black/ mL/min/BSA 8:03 PM CDT Bolivian Comment: ----ADDITIONAL INFORMATION---- Estimated GFR calculated using [...] City/State/ZIP Code Phon e Number [facility] LABORATORIES - [address] [place], [place] [address] [facility] [place] [address] Laboratories-[facility] [address] [facility] (ABNORMAL) CBC with Differential, Blood (04/07/2022 8:15 AM CDT) [employer] gist Method Time Signature Hemoglobin 13.0 11.6 [...] City/State/ZIP Code Phon e Number [facility] LABORATORIES - [address] [place], [place] [address] [facility] [place] [address] Laboratories-[facility] [address] documented in this encounter Visit Diagnoses Diagnosis Waldenstrom's Macroglobulinemia (HCC) documented in this encounter Care Teams Accounting Generalist Relationship Specialty Start Date End Date Elsewhere, Pcp PCP - General Family Medicine 03/04/21 documented as of this encounter
--- OUTSIDE RECORDS SUMMARY | 2022-07-11 01:13 | XMS_ITS | Encounter Summary ---
:1945 Author Organization [facility] Address [address] [place] [address] Care Team Providers Name Role Phone Elsewhere, Pcp Primary Care Provider Unavailable Encounter Details Date Type Department Care Team Description 12/14/2021 Ancillary Department of Arron Patricio Lymphoma Eye (HCC) Procedure Ophthalmology ar Knox M.D. [place], [place] [address] [place] [address] [address] [place] [phone] [phone] Social History Tobacco Use Types Packs/Day Years [...] (HCC) documented in this encounter Care Teams Lead Slot Technician Relationship Specialty Start Date End Date Elsewhere, Pcp PCP - General Family Medicine 03/04/21 documented as of this encounter
--- OUTSIDE RECORDS SUMMARY | 2022-07-11 01:13 | XMS_ITS | Encounter Summary ---
:1945 Author Organization [facility] Address [address] [place] [address] Care Team Providers Name Role Phone Elsewhere, Pcp Primary Care Provider Unavailable Reason for Visit Reason Comments Intraocular Lens Implant Status Post Appointment Request (Routine) - Closed Specialty Diagnoses / Procedures Referred By Contact Refer red To Contact Ophthalmology Diagnoses Ptosis Eyelid Arron Patricio M.D. [address] [place] [phone] Referral ID Status Reason Start Date Expiration Date Visits Requ ested Visits Authorized [id number] Closed 11/05/2021 11/05/2022 1 Encounter Details Date Type Department Care Team Description 12/14/2021 Office Visit Department of Arron Patricio Blurred Visio yair Ophthalmology ar Knox M.D. (Primary Dx) [place], [place] [address] [place] [address] [place] [phone] [phone] Social History Tobacco Use Types Packs/Day Years [...] Primary documented in this encounter Care Teams Fairground Operator Relationship Specialty Start Date End Date Elsewhere, Pcp PCP - General Family Medicine 03/04/21 documented as of this encounter
--- OUTSIDE RECORDS SUMMARY | 2022-07-11 01:13 | XMS_ITS | Encounter Summary ---
:1945 Author Organization [facility] Address [address] [place] [address] Care Team Providers Name Role Phone Elsewhere, Pcp Primary Care Provider Unavailable Encounter Details Date Type Department Care Team Description 11/05/2021 Clinical Communication Department of Arron Patricio Ophthalmology ar Knox M.D. [place], [place] [address] [place] [address] [address] [place] [phone] [phone] Social History Tobacco Use Types Packs/Day Years [...] More than 4 times per year 04/09/2022 yarsani services? Do you belong to any clubs [...] Miscellaneous Notes Telephone Encounter - Arielle Adams C.O.Peter - 11/05/2021 4:11 PM CDT ordered Telephone Encounter - Lalito Florentino - 11/05/2021 3:[address] order for Dr Patricio Lymphoma, ptosis lid Per INSEAM LEVELER: Slit lamp photos Thanks documented in this [...] (HCC) documented in this encounter Care Teams Adult Ministries Director Relationship Specialty Start Date End Date Elsewhere, Pcp PCP - General Family Medicine 03/04/21 documented as of this encounter
--- OUTSIDE RECORDS SUMMARY | 2022-07-11 01:13 | XMS_ITS | Encounter Summary ---
:[address] [facility] Address [address] [place] [address] Care Team Providers Name Role Phone Elsewhere, [...] More than 4 times per year 04/09/2022 roman catholic services? Do you belong to any [...] filedocumented in this encounter Care Teams Chief Concierge Relationship Specialty Start Date End Date Elsewhere, Pcp PCP - General Family Medicine 03/04/21 documented as of this encounter
--- OUTSIDE RECORDS SUMMARY | 2022-07-11 01:14 | XMS_ITS | Encounter Summary ---
:1945 Author Organization [facility] Address [address] [place] [address] Care Team Providers Name Role Phone Elsewhere, Pcp Primary Care Provider Unavailable Reason for Visit Outpatient (Routine) - Closed Specialty Diagnoses / Procedures Referred By Contact Refer red To Contact Hematology Oncology Judy Aleman M.D. [address] [place] [phone] Referral ID Status Reason Start Date Expiration Date Visits Requ ested Visits Authorized [id number] Closed 10/02/2020 10/02/2021 1 1 Encounter Details Date Type Department Care Team Description 04/07/2021 [facility] Arturo Ricks, Macroglobu linemia (HCC) Ana Castillo (Primary Dx) [address] [place] [phone] Social History Tobacco Use Types Packs/Day Years [...] 1. 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 9790-0125: Treated with rituximab, intermittently, totaling 10 different [...] do labs locally and send sent to [facility] as a mail in. I will reviewthose [...] Primary documented in this encounter Care Teams Benefit Authorizer Relationship Specialty Start Date End Date Elsewhere, Pcp PCP - General Family Medicine 03/04/21 documented as of this encounter
--- OUTSIDE RECORDS SUMMARY | 2022-07-11 01:14 | XMS_ITS | Encounter Summary ---
:1945 Author Organization [facility] Address [address] [place] [address] Care Team Providers Name Role Phone Elsewhere, Pcp Primary Care Provider Unavailable Reason for Visit Reason Comments D3 level Encounter Details Date Type Department Care Team Description 09/14/2021 Clinical Communication Division of Kevin Ricks , D3 level Hematology in Arturo Mckeon M.D. [place], [place] [address] [facility] [address] [place] [phone] Social History Tobacco Use Types Packs/Day Years [...] CST Sent a treatment letter to the [facility] to add to Mail out labs. SURANCE CLAIM ANALYST Telephone Encounter - Mary Jo Michelle - 09/14/2021 1:20 PM CST Pt called and is wondering if you could order a D3 level with the blood tests that are coming up. Phone; [phone] SURANCE CLAIM ANALYST documented in this encounter Plan of Treatment Not on filedocumented as of this encounter Visit Diagnoses Not on filedocumented in this encounter Care Teams Supervisor Pipe Finishing Relationship Specialty Start Date End Date Elsewhere, Pcp PCP - General Family Medicine 03/04/21 documented as of this encounter
--- OUTSIDE RECORDS SUMMARY | 2022-07-11 01:14 | XMS_ITS | Encounter Summary ---
:[address] [facility] Address [address] [place] [address] Care Team Providers Name Role Phone Elsewhere, Pcp Primary Care Provider Unavailable Encounter Details Date Type Department Care Team Description 04/14/2021 Orders Only Division of Daisy López's Hematology in A, R.N. Macroglobulinemia (HCC) [place], [place] [address] [place] [address] (Primary Dx) [address] [place] [phone] Social History Tobacco Use Types Packs/Day Years [...] (ABNORMAL) Monoclonal Gammopathy Monitoring (09/28/2021 10:25 AM DINING ROOM MANAGER) [facility] Method Time Signature Therapeutic No 09/30/2021 SDSC Antibody 6:07 AM DINING ROOM MANAGER Administered? Total Protein, S 7.1 6.3 - 7.9 09/30/2021 SDSC g/dL 8:37 AM DINING ROOM MANAGER Albumin 3.8 3.4 - 4.7 09/30/2021 [facility]SC g/dL 3:00 PM DINING ROOM MANAGER Alpha-1 Globulin 0.3 0.1 - 0.3 09/30/2021 SDSC g/dL 3:00 PM DINING ROOM MANAGER Alpha-2 Globulin 1.0 0.6 - 1.0 09/30/2021 SDSC g/dL 3:00 PM DINING ROOM MANAGER Beta-Globulin 0.9 0.7 - 1.2 09/30/2021 [facility]SC g/dL 3:00 PM DINING ROOM MANAGER Gamma-Globulin 1.1 0.6 - 1.6 09/30/2021 SDSC g/dL 3:00 PM DINING ROOM MANAGER A/G Ratio 1.12 09/30/2021 SDSC 3:00 PM DINING ROOM MANAGER M spike 0.9 (H) g/dL 09/30/2021 SDSC 3:00 PM DINING ROOM MANAGER Impression M-spike in 09/30/2021 SDSC gamma 3:00 PM DINING ROOM MANAGER fraction. Specimen Anatomical Collection Method Collection Time Receive d Time (Source) Location / / Volume Laterality Blood (Blood, 09/28/2021 10:25 09/30/2021 6:07 Venous) AM DINING ROOM MANAGER AM DINING ROOM MANAGER Resulting Agency Comment Mailed In Specimen Arturo Ricks M.D. LAB BLOOD ADD-ON Performing Organization Address City/State/ZIP Code Phon e Number [facility] [address] [place] [phone] [address] [facility] [facility] [place] [address] Laboratory Medicine and Pathology [address] [place] [address] Dr. NATH (ABNORMAL) Immunoglobulins (IgG, IgA, and IgM) (09/28/2021 10:25 AM DINING ROOM MANAGER) Patholo gist Method Time Signature Immunoglobulin A 30 (L) 61 - 356 09/29/2021 SDSC (IgA), S mg/dL 5:38 PM DINING ROOM MANAGER Immunoglobulin M 1230 (H) 37 - 286 09/29/2021 [facility] (IgM), S mg/dL 6:07 PM DINING ROOM MANAGER Immunoglobulin G 301 (L) 767 - 09/29/2021 SDSC (IgG), S 1590 5:39 PM DINING ROOM MANAGER mg/dL Specimen Anatomical Collection Method Collection Time Receive d Time (Source) Location / / Volume Laterality Blood (Blood, 09/28/2021 10:25 09/29/2021 4:22 Venous) AM DINING ROOM MANAGER PM DINING ROOM MANAGER Resulting Agency Comment Mailed In Specimen Arturo Ricks M.D. LAB BLOOD ADD-ON Performing Organization Address City/[facility] Phon e Number [address] [place] [phone] [facility] [facility] [address] Laboratory Medicine and Pathology [address] [place] [address] Dr. NATH (ABNORMAL) Immunoglobulin Free Light Chains (09/28/2021 10:25 AM DINING ROOM MANAGER) Analysis Performed At Patho logist Time Signature [place] Free 2.60 (H) 0.3300 - 09/29/2021 SDSC Light Chain, S 1.94 mg/dL 5:18 PM DINING ROOM MANAGER Lambda Free 0.4200 (L) 0.5700 - 09/29/2021 SDSC Light Chain, S 2.63 mg/dL 5:34 PM DINING ROOM MANAGER [place]/Lambda 6.19 (H) 0.2600 - 09/29/2021 SDSC FLC Ratio 1.65 5:34 PM DINING ROOM MANAGER Specimen Anatomical Collection Method Collection Time Receive d Time (Source) Location / / Volume Laterality Blood (Blood, 09/28/2021 10:25 09/29/2021 4:22 Venous) AM DINING ROOM MANAGER PM DINING ROOM MANAGER Resulting Agency Comment Mailed In Specimen Arturo Ricks M.D. LAB BLOOD ADD-ON Performing Organization Address City/[facility]/ZIP Code Phon e Number [facility] [address] [place], [place] [address] [address] [facility] [place] [address] Laboratory Medicine and Pathology [address] [place] LD (Lactate Dehydrogenase) (09/28/2021 10:25 AM DINING ROOM MANAGER) Analysis Performed At Patho logist Time Signature Lactate 168 122 - 222 09/29/2021 DTL Dehydrogenase U/L 2:36 PM DINING ROOM MANAGER (LD), S Specimen Anatomical Collection Method Collection Time Receive d Time (Source) Location / / Volume Laterality Blood (Blood, 09/28/2021 10:25 09/29/2021 Venous) AM DINING ROOM MANAGER 12:43 PM DINING ROOM MANAGER Resulting Agency Comment Mailed In Specimen Arturo Ricks M.D. LAB BLOOD NON ADD-ON Performing Organization Address City/[facility]/ZIP Code Phon e Number [facility] - [address] [place], [place] [address] [facility] [place] [address] Laboratories-[facility] 200 [facility] (ABNORMAL) Comprehensive Metabolic Panel (09/28/2021 10:25 AM DINING ROOM MANAGER) P athologist Signature Potassium, S 4.0 3.6 - 5.2 09/29/2021 DTL mmol/L 2:42 PM DINING ROOM MANAGER Sodium, S 137 135 - 145 09/29/2021 DTL mmol/L 2:42 PM DINING ROOM MANAGER Chloride, S 95 (L) 98 - 107 09/29/2021 DTL mmol/L 2:42 PM DINING ROOM MANAGER Bicarbonate, S 27 22 - 29 09/29/2021 DTL mmol/L 2:42 PM DINING ROOM MANAGER Anion Gap 15 7 - 15 09/29/2021 DTL 2:42 PM DINING ROOM MANAGER BUN (Blood Urea 14 6 - 21 09/29/2021 DTL Nitrogen), S mg/dL 2:42 PM DINING ROOM MANAGER Creatinine 0.71 0.59 - 09/29/2021 DTL 1.04 mg/dL 2:42 PM DINING ROOM MANAGER eGFR-Non 83 >=60 09/29/2021 DTL Black/ mL/min/BSA 2:42 PM DINING ROOM MANAGER Tanz[place] Comment: ----ADDITIONAL INFORMATION---- Estimated GFR calculated using the 2009 CKD_EPI creatinine equation. eGFR-Black/ >90 >=60 mL/min/BSA 2021 2:42 PM DINING ROOM MANAGER DTL Comment: ----ADDITIONAL INFORMATION---- Estimated GFR calculated using the 2009 CKD_EPI creatinine equation. Calcium, Total, S 9.5 8.8 - 10.2 mg/dL 09/29/2021 2:42 PM DINING ROOM MANAGER DTL Glucose, S 99 70 - 140 mg/dL 09/29/2021 2:42 PM DINING ROOM MANAGER D TL Protein, Total, S 7.2 6.3 - 7.9 g/dL 09/29/2021 2:42 P M DINING ROOM MANAGER DTL Albumin, S 4.6 3.5 - 5.0 g/dL 09/29/2021 2:42 PM DINING ROOM MANAGER D TL Aspartate Aminotransferase (AST), 23 8 - 43 U/L 09/29 2:42 PM DINING ROOM MANAGER DTL S Alkaline Phosphatase, S 80 35 - 104 U/L 09/29/2021 2: 42 PM DINING ROOM MANAGER DTL Alanine Aminotransferase (ALT), S 24 7 - 45 U/L 09/29 2:42 PM DINING ROOM MANAGER DTL Bilirubin, Total, S 0.8 <=1.2 mg/dL 09/29/2021 2:42 PM DINING ROOM MANAGER DTL Specimen Anatomical Collection Method Collection Time Receive d Time (Source) Location / / Volume Laterality Blood (Blood, 09/28/2021 10:25 09/29/2021 Venous) AM DINING ROOM MANAGER 12:43 PM DINING ROOM MANAGER Resulting Agency Comment Mailed In Specimen Arturo Ricks M.D. LAB BLOOD ADD-ON Performing Organization Address City/State/ZIP Code Phon e Number [facility] - [address] [place], [place] [address] [facility] [address] Laboratories-[facility] [address] (ABNORMAL) CBC with Differential, Blood (09/28/2021 10:25 AM DINING ROOM MANAGER) Patholo gist Method Time Signature Hemoglobin 14.5 11.6 - 09/29/2021 DTL 15.0 g/dL 2:15 PM DINING ROOM MANAGER Hematocrit 42.1 35.5 - 09/29/2021 DTL 44.9 % 2:15 PM DINING ROOM MANAGER Erythrocytes 4.79 3.92 - 09/29/2021 DTL 5.13 2:15 PM DINING ROOM MANAGER x10(12)/L MCV 87.9 78.2 - 09/29/2021 DTL 97.9 fL 2:15 PM DINING ROOM MANAGER RBC Distrib Width 13.2 12.2 - 09/29/2021 DTL 16.1 % 2:15 PM DINING ROOM MANAGER Platelet Count 269 157 - 371 09/29/2021 DTL x10(9)/L 2:15 PM DINING ROOM MANAGER Leukocytes 3.4 3.4 - 9.6 09/29/2021 DTL x10(9)/L 2:15 PM DINING ROOM MANAGER Neutrophils 2.26 1.56 - 09/29/2021 DTL 6.45 2:15 PM DINING ROOM MANAGER x10(9)/L Lymphocytes 0.59 (L) 0.95 - 09/29/2021 DTL 3.07 2:15 PM DINING ROOM MANAGER x10(9)/L Monocytes 0.38 0.26 - 09/29/2021 DTL 0.81 2:15 PM DINING ROOM MANAGER x10(9)/L Eosinophils 0.12 0.03 - 09/29/2021 DTL 0.48 2:15 PM DINING ROOM MANAGER x10(9)/L Basophils <0.03 0.01 - 09/29/2021 DTL 0.08 2:15 PM DINING ROOM MANAGER x10(9)/L Specimen Anatomical Collection Method Collection Time Receive d Time (Source) Location / / Volume Laterality Blood (Blood, 09/28/2021 10:25 09/29/2021 Venous) AM DINING ROOM MANAGER 12:43 PM DINING ROOM MANAGER Resulting Agency Comment Mailed In Specimen Arturo Ricks M.D. LAB BLOOD ADD-ON Performing Organization Address City/State/ZIP Code Phon e Number [facility] - [address] [place], [place] [address] [facility] [address] Laboratories-[facility] [address] documented in this encounter Visit Diagnoses Diagnosis Waldenstrom's Macroglobulinemia (HCC) - Primary documented in this encounter Care Teams Production Controller Relationship Specialty Start Date End Date Elsewhere, Pcp PCP - General Family Medicine 03/04/21 documented as of this encounter
--- OUTSIDE RECORDS SUMMARY | 2022-07-11 01:14 | XMS_ITS | Encounter Summary ---
:1945 Author Organization [facility] Address [address] [place] [address] Care Team Providers Name Role Phone Unavailable Primary Care Provider Unavailable Reason for Visit Reason Comments Lab and urine results Encounter Details Date Type Department Care Team Description 10/03/2020 Clinical Division of [place] Lab and urine Communication Hematology in Arturo Ricks, results [place] [address] [place] [address] [address] [place] [phone] Social History Tobacco Use Types Packs/Day Years [...] or relatives? How often do you attend orthodoxy or More than 4 times per year 04/09/2022 temple services? Do you belong to any clubs or Yes 04/09/2022 organizations such as orthodoxy groups, unions, fraternal or athletic groups, or school groups? How often do you attend meetings of the More than 4 times pe belkis year 04/09/2022 clubs or organizations you belong [...] urine results from 09/09/2020 be faxed to [facility] - Attention: Dr. Brijesh Ken at [phone]. Patient also requests a paper copy sent to her home address. Call back number is [phone] Is it okay to leave a voicemail on answering machine? yes Thank you, Stephanie Hematology [facility] DORA TION ACCOUNTANT documented in this encounter Plan of Treatment Not on filedocumented as of this encounter Visit Diagnoses Not on filedocumented in this encounter
--- OUTSIDE RECORDS SUMMARY | 2022-07-11 01:14 | XMS_ITS | Encounter Summary ---
:1945 Author Organization [facility] Address [address] [place] [address] Care Team Providers Name Role Phone Elsewhere, Pcp Primary Care Provider Unavailable Reason for Visit Appointment Request (Routine) - Closed Specialty Diagnoses / Procedures Referred By Contact Refer red To Contact Ophthalmology Diagnoses Eye Examination Normal Arron Patricio M.D. [address] [place] [address] Referral ID Status Reason Start Date Expiration Date Visits Requ ested Visits Authorized [id number] Closed 07/01/2021 07/01/2022 1 1 Encounter Details Date Type Department Care Team Description 07/03/2021 Comprehensive Visit Department of Wing Lana Peter, Refract ion Disorder Ophthalmology in O.D. (Primary Dx) [place], [place] [address] [place] [address] [address] [place] [phone] Social History Tobacco Use Types Packs/Day Years [...] develop new concerns with her left eye. 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
--- OUTSIDE RECORDS SUMMARY | 2022-07-11 01:14 | XMS_ITS | Encounter Summary ---
:1945 Author Organization [facility] Address [address] [place] [address] Care Team Providers Name Role Phone Elsewhere, Pcp Primary Care Provider Unavailable Encounter Details Date Type Department Care Team Description 09/28/2021 Clinical Communication Division of Kevin Ricks , Hematology in Arturo Mckeon M.D. [place], [place] [address] [place] [address] [address] [place] [phone] Social History Tobacco Use Types Packs/Day Years [...] or relatives? How often do you attend quaker or More than 4 times per year 04/09/2022 taoist services? Do you belong to any clubs or Yes 04/09/2022 organizations such as quaker groups, unions, fraternal or athletic groups, or [...] on filedocumented in this encounter Care Teams Replanter Relationship Specialty Start Date End Date Elsewhere, Pcp PCP - General Family Medicine 03/04/21 documented as of this encounter
--- OUTSIDE RECORDS SUMMARY | 2022-07-11 01:14 | XMS_ITS | Encounter Summary ---
:1945 Author Organization [facility] Address [address] [place] [address] Care Team Providers Name Role Phone Elsewhere, Pcp Primary Care Provider Unavailable Reason for Visit Reason Comments External Lab Entry Encounter Details Date Type Department Care Team Description 02/19/2021 Clinical Department of Arron Patricio External Lab Entry Communication Ophthalmology ar Knox M.D. [place], [place] [address] [place] [address] [address] [place] [phone] Social History Tobacco Use Types Packs/Day Years [...] More than 4 times per year 04/09/2022 yazidism services? Do you belong to any clubs [...] Coronavirus-2 (COVID-19) RNA (01/28/2021 4:15 PM CDT) [facility] gist Method Time Signature EXT Detected (A) [facility] SARS-CoV-2 [facility] RNA Indetermi LABORATORY vicente, Invalid, Negative, Not Detected, Undetecte d, Other (specify in comment) Specimen (Source) Anatomical Collection Method Collection Time Re ceived Time Location / / Volume Laterality Swab 01/28/2021 4:15 PM CDT Narrative This result has an attachment that is no t available. Arron Patricio M.D. LAB MICROBIOLOGY - GENERAL O RDERABLES Performing Organization Address City/State/ZIP Code Phon e Number [facility] [address] [place] [address] documented in this encounter Visit Diagnoses Not on filedocumented in this encounter Care Teams Healthcare Risk Control Consultant Relationship Specialty Start Date End Date Elsewhere, Pcp PCP - General Family Medicine 03/04/21 documented as of this encounter
--- OUTSIDE RECORDS SUMMARY | 2022-07-11 01:14 | XMS_ITS | Encounter Summary ---
:1945 Author Organization [facility] Address [address] [place] [address] Care Team Providers Name Role Phone Elsewhere, Pcp Primary Care Provider Unavailable Encounter Details Date Type Department Care Team Description 03/04/2021 Surgery Outpatient Procedure Arron Patricio V., [facility] [place] in [place] Castillo INTRAOCULAR LENS [place] [address] [facility] IMPLANTATION. [address] [place] [address] [phone] Social History Tobacco Use Types Packs/Day Years [...] Dr. Arron Patricio, Tue- Tue 8-5 at [phone] [facility] Planting Material Unloader, (after business hours, and ask for the subcontract administrator eye doctor) Please bring all of your [...] daily. 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) [email or web address] TURMERIC ROOT EXTRACT Take 1 tablet by [...] Continuous, Starting on Tue03/04/21 at 0845, Intra-Op cxxfectxp-uifcjuhqybp-gzacapbkntjsk human Given 03/04/2021 9:11 4.6 mL Right [...] 03/03/2021 03/04/2021 acetaminophen tablet 1,000 mg (TYLENOL) 0847 (Not Given - Provider: Anay Elias R.N. - Reason: Patient/family refused) 1,000 mg, oral, Once, On Tue03/04/21 at 0845, For 1 dose, Pre-Op cyclopentolate-phenylephrine in hypromel lose 0.125-1.25 % ophthalmic solution 1 application (DILATING DROPS) (COMPLETED) 08 (Given - Provider: Anay Elias R.N.) 1 [...] salt solution 500 mL ophthalmic irrigation (COMPLETED) 09 (Given - Provid er: Arron Patricio M.D.) 500 mL, intraocular irrigation, Once in surgery, OR use only, Starting on Tue03/04/21 at 0855, For 1 dose, Intra-Op fentaNYL injection 25 mcg (SUBLIMAZE) 908 (Given - Provider: Atul Arambula RMarcelloNMarcello) 25 mcg, intravenous, Every 2 min PRN, [...] a respiratory rate less than 8 breaths/minute. yxpaoxpfu-znjijoypplq-ufwjqfcuqqlmb faisal n recombinant (Ophthalmic Block Solution #2) 9.5 mg-2.4 mg-7.5 Units/mL 12 mL (COMPLETED) 910 (Given - Provider: Arron Patricio M.D.) 12 mL, ophthalmic, Once in surgery, OR u se only, Starting on Tue03/04/21 at 0855, For 1 dose, Intra-Op midazolam (PF) injection 0.5 mg (VERSED) 0.5 mg, intravenous, Once as needed, sed ation, Starting on Tue03/04/21 at 0829, For 1 dose, Intra-Op midazolam (PF) injection 0.5 mg (VERSED) 908 (Given - Provider: Atul Arambula R.N.) 0.5 [...] injection documented in this encounter Care Teams Head Start Coordinator Relationship Specialty Start Date End Date Elsewhere, Pcp PCP - General Family Medicine 03/04/21 documented as of this encounter
--- OUTSIDE RECORDS SUMMARY | 2022-07-11 01:14 | XMS_ITS | Encounter Summary ---
:1945 Author Organization [facility] Address [address] [place] [address] Care Team Providers Name Role Phone Unavailable Primary Care Provider Unavailable Encounter Details Date Type Department Care Team Description 02/19/2021 Nurse Triage Department of [facility] Jennifer Troy R.N. Medicine, [facility], in [address] [place], [place] [address] [place] [address] [place] [address] [phone] Social History Tobacco Use Types Packs/Day Years [...] had Covid 01/29 , was tested in [place]. She calls for further recommendations. Her call was warm transferred to Angie in Ophthalmology for further advice documented in this encounter Plan of Treatment Not on filedocumented as of this encounter Visit Diagnoses Not on filedocumented in this encounter
--- OUTSIDE RECORDS SUMMARY | 2022-07-11 01:14 | XMS_ITS | Encounter Summary ---
:1945 Author Organization [facility] Address [address] [place] [address] Care Team Providers Name Role Phone Elsewhere, Pcp Primary Care Provider Unavailable Encounter Details Date Type Department Care Team Description 04/07/2021 [facility] Arturo Ricks, Macroglobul inemia (HCC) Medicine and M.D. Pathology, [place] [address] [place] [address] [facility] [address] [place] [phone] [place] [address] (Work) [place], [place] [phone] (Fax) [phone] Social History Tobacco Use Types Packs/Day Years [...] daily. 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) [employer] by [employer] TURMERIC ROOT EXTRACT Take 1 tablet by [...] M 1050 (H) 37 - 286 04/07/2021 SDS (IgM), S mg/dL 11:26 AM CDT Immunoglobulin G 321 (L) 767 - 04/07/2021 SDS (IgG), S 1590 10:57 AM CDT mg/dL Specimen Anatomical Collection Method Collection Time Receive d Time (Source) Location / / Volume Laterality Blood (Blood, 04/07/2021 8:04 AM 04/07/20 Venous) CDT 10:21 AM CDT Arturo Ricks M.D. LAB BLOOD ADD-ON Performing Organization Address City/[facility] Phon e Number [facility] [address] NATH [place], [place] [address] [facility] [place] [address] Laboratory Medicine and Pathology [address] NATH Sodium (04/07/2021 8:04 AM CDT) P athologist Signature Sodium, S 137 135 - 145 04/07/2021 9:29 DTL mmol/L AM CDT Specimen Anatomical Collection Method Collection Time Receive d Time (Source) Location / / Volume Laterality Blood (Blood, 04/07/2021 8:04 AM 04/07/20 8:58 Venous) CDT AM CDT Arturo Ricks M.D. LAB BLOOD ADD-ON Performing Organization Address City/[facility]/ZIP [facility] Phon e Number [facility] - [address] [place], [place] [address] [facility] [place] [address] Laboratories-[facility] [address] Potassium (04/07/2021 8:04 AM CDT) P athologist Signature Potassium, S 4.0 3.6 - 5.2 04/07/2021 DTL mmol/L 9:29 AM CDT Specimen Anatomical Collection Method Collection Time Receive d Time (Source) Location / / Volume Laterality Blood (Blood, 04/07/2021 8:04 AM 04/07/20 8:58 Venous) CDT AM CDT Arturo Ricks M.D. LAB BLOOD ADD-ON Performing Organization Address City/State/ZIP Code Phon e Number [facility] - [address] [place] [address] [facility] [place] [place] [address] [address] (ABNORMAL) Monoclonal Gammopathy Monitoring (04/07/2021 8:04 [...] Organization Address City/State/ZIP Code Phon e Number [facility] [address] [place] [address] [facility] [place] [address] Laboratory Medicine and Pathology [address] NATH (ABNORMAL) Immunoglobulin Free Light Chains (04/07/2021 8:04 AM CDT) Analysis Performed At Patho logist Time Signature [place] Free 2.17 (H) 0.3300 - 04/07/2021 SDSC Light Chain, S 1.94 mg/dL 11:18 AM CDT Lambda Free 0.4200 (L) 0.5700 - 04/07/2021 SDSC Light Chain, S 2.63 mg/dL 11:33 AM CDT [place]/Lambda 5.17 (H) 0.2600 - 04/07/2021 SDSC FLC Ratio 1.65 11:33 AM CDT Specimen Anatomical Collection Method Collection Time Receive d Time (Source) Location / / Volume Laterality Blood (Blood, 04/07/2021 8:04 AM 04/07/20 Venous) CDT 10:52 AM CDT Arturo Ricks M.D. LAB BLOOD ADD-ON Performing Organization Address City/State/ZIP Code Phon e Number [facility] [address] [place], [place] [address] [facility] [place] [address] Laboratory Medicine and Pathology [address] [place] [address] Dr. NATH Creatinine with Estimated GFR (04/07/2021 8:04 AM CDT) P athologist Signature Creatinine 0.69 0.59 - 04/07/2021 DTL 1.04 mg/dL 9:29 AM CDT eGFR-Non 85 >=60 04/07/2021 DTL Black/ mL/min/BSA 9:29 AM CDT Guyanese Comment: ----ADDITIONAL INFORMATION---- Estimated GFR calculated using [...] Organization Address City/State/ZIP Code Phon e Number [facility] - [address] [place], [place] [address] [facility] [place] [place] [address] Laboratories-[facility] [address] (ABNORMAL) CBC no call back, reflex T/S HGB <8 (04/07/2021 8:04 AM CDT) [facility] gist Method Time Signature Hemoglobin 13.0 [...] AM 04/07/20 8:29 Venous) CDT AM CDT Arturo Ricks M.D. LAB BLOOD NON ADD-ON Performing Organization Address City/[facility]/ZIP [facility] Phon e Number [facility] - 200 [place], [place] [address] [place] [address] [place] [id number] Calcium, Total (04/07/2021 8:04 AM CDT) P athologist Signature Calcium, Total, 9.6 8.8 - 10.2 04/07/2021 DTL S mg/dL 9:29 AM CDT Specimen Anatomical Collection Method Collection Time Receive d Time (Source) Location / / Volume Laterality Blood (Blood, 04/07/2021 8:04 AM 04/07/20 8:58 Venous) CDT AM CDT Authorizing Provider Result Sammi Ricks M.D. LAB BLOOD ADD-ON Performing Organization Address City/[facility] Phon e Number [facility] - 200 [place], [place] [address] [facility] [place] [place] [address] AST (Aspartate Aminotransferase) (04/07/2021 8:04 AM [...] M.D. LAB BLOOD ADD-ON Performing Organization Address City/State/[facility] Phon e Number [facility] - [address] [address] Laboratories-[facility] [address] [facility] Alkaline Phosphatase (04/07/2021 8:04 AM CDT) athologist Signature Alkaline 70 35 - 104 04/07/2021 DTL Phosphatase, S U/L 9:29 AM CDT Specimen Anatomical Collection Method Collection Time Receive d Time (Source) Location / / Volume Laterality Blood (Blood, 04/07/2021 8:04 AM 04/07/20 8:58 Venous) CDT AM CDT Arturo Ricks M.D. LAB BLOOD ADD-ON Performing Organization Address City/[facility] Phon e Number [facility] - [address] documented in this encounter Visit Diagnoses Diagnosis Waldenstrom's Macroglobulinemia (HCC) documented in this encounter Care Teams Oil Well Logging Engineer Relationship Specialty Start Date End Date Elsewhere, Pcp PCP - General Family Medicine 03/04/21 documented as of this encounter
--- OUTSIDE RECORDS SUMMARY | 2022-07-11 01:14 | XMS_ITS | Encounter Summary ---
:1945 Author Organization [facility] Address [address] [place] [address] Care Team Providers Name Role Phone Unavailable Primary Care Provider Unavailable Reason for Visit Reason Comments Surgery questions Encounter Details Date Type Department Care Team Description 02/24/2021 Clinical Department of Arron Patricio Surgery [facility] Communication Ophthalmology ar Knox M.D. [place], [place] [address] [place] [address] [address] [place] [address] [phone] Social History Tobacco Use Types Packs/Day Years [...]
--- OUTSIDE RECORDS SUMMARY | 2022-07-11 01:14 | XMS_ITS | Encounter Summary ---
:1945 Author Organization [facility] Address [address] [place] [address] Care Team Providers Name Role Phone Elsewhere, Pcp Primary Care Provider Unavailable Encounter Details Date Type Department Care Team Description 03/04/2021 Hospital Encounter Outpatient Procedure Arron Patricio V., [place] [facility] [place] [address] [place] [address] [address] [place] [address] [phone] (Wo rk) Social History Tobacco Use Types [...] More than 4 times per year 04/09/2022 congregation services? Do you belong to any clubs [...] Dr. Arron Patricio, Tue- Tue 8-5 at [phone] [facility] Facility Assistant, (after business hours, and ask for the education program manager eye doctor) Please bring all of your [...] daily. 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) [employer] by [employer] TURMERIC ROOT EXTRACT Take 1 tablet by [...] 03/03/2021 03/04/2021 acetaminophen tablet 1,000 mg (TYLENOL) 0835 (Not Given - Provider: Anay Elias R.N. [...] a respiratory rate less than 8 breaths/minute. abekarfgg-nxsdbodzizd-gaelcdwojhbdg faisal n recombinant (Ophthalmic Block Solution #2) [...] injection documented in this encounter Care Teams Plan Coordinator Relationship Specialty Start Date End Date Elsewhere, Pcp PCP - General Family Medicine 03/04/21 documented as of this encounter
--- OUTSIDE RECORDS SUMMARY | 2022-07-11 01:14 | XMS_ITS | Encounter Summary ---
:1945 Author Organization [facility] Address [address] [place] [address] Care Team Providers Name Role Phone Elsewhere, Pcp Primary Care Provider Unavailable Reason for Visit Reason Comments Post-op Follow-up Outpatient (Routine) - Closed Specialty Diagnoses / Procedures Referred By Contact Refer red To Contact Ophthalmology Arron Patricio M. D. [facility] [address] [place] [phone] Referral ID Status Reason Start Date Expiration Date Visits Requ ested Visits Authorized [id number] Closed 01/01/2021 01/01/2022 1 1 Encounter Details Date Type Department Care Team Description 03/05/2021 Office Visit Department of Arron Patricio Ophthalmology ar Knox M.D. Implant Status Post [place], [place] [address] [place] [address] (Primary Dx) [address] [place] [phone] [phone] Social History Tobacco Use Types Packs/Day Years [...] or relatives? How often do you attend confucianist or More than 4 times per year 04/09/2022 mu-ism services? Do you belong to any clubs or Yes 04/09/2022 organizations such as confucianist groups, unions, fraternal or athletic groups, or [...] encounter Progress Notes Arron Patricio M.D. - 03/05/2021 10:30 AM CDT [...] rimary documented in this encounter Care Teams Quantitative Software Engineer Relationship Specialty Start Date End Date Elsewhere, Pcp PCP - General Family Medicine 03/04/21 documented as of this encounter
--- OUTSIDE RECORDS SUMMARY | 2022-07-11 01:14 | XMS_ITS | Encounter Summary ---
:1945 Author Organization [facility] Address [address] [place] [address] Care Team Providers Name Role Phone Elsewhere, Pcp Primary Care Provider Unavailable Reason for Visit Reason Comments Pre-visit Intake Intake Assessment Encounter Details Date Type Department Care Team Description 10/02/2021 Clinical Division of Kevin Pre-visit Tera hodges; Communication Hematology in Arturo Ricks, Intake As avery Castillo M.D. [place] [address] [place] [address] [address] [place] [address] [phone] Social History Tobacco Use Types Packs/Day Years [...] on filedocumented in this encounter Care Teams Detective Homicide Squad Relationship Specialty Start Date End Date Elsewhere, Pcp PCP - General Family Medicine 03/04/21 documented as of this encounter
--- OUTSIDE RECORDS SUMMARY | 2022-07-11 01:14 | XMS_ITS | Encounter Summary ---
:[address] [facility] Address [address] [place] [address] Care Team Providers Name Role Phone Unavailable Primary Care Provider Unavailable Encounter Details Date Type Department Care Team Description 11/10/2020 Clinical Communication Department of Arron Patricio Ophthalmology ar Knox M.D. [place], [place] [address] [place] [address] [address] [place] [address] [phone] Social History Tobacco Use Types Packs/Day Years [...] More than 4 times per year 04/09/2022 jewish services? Do you belong to any clubs [...]
--- OUTSIDE RECORDS SUMMARY | 2022-07-11 01:14 | XMS_ITS | Encounter Summary ---
:1945 Author Organization [facility] Address [address] [place] [address] Care Team Providers Name Role Phone Elsewhere, Pcp Primary Care Provider Unavailable Reason for Visit Reason Comments Post-op Follow-up Outpatient (Routine) - Closed Specialty Diagnoses / Procedures Referred By Contact Refer red To Contact Ophthalmology Arron Patricio M. D. [facility] [address] [place] [phone] Referral ID Status Reason Start Date Expiration Date Visits Requ ested Visits Authorized [id number] Closed 01/01/2021 01/01/2022 1 1 Encounter Details Date Type Department Care Team Description 03/31/2021 Office Visit Department of Arron Patricio Ophthalmology ar Knox M.D. Implant Status Post [place], [place] [address] [place] [address] (Primary Dx) [address] [place] [phone] Social History Tobacco Use Types Packs/Day Years [...] rimary documented in this encounter Care Teams Aircraft Time Clerk Relationship Specialty Start Date End Date Elsewhere, Pcp PCP - General Family Medicine 03/04/21 documented as of this encounter
--- OUTSIDE RECORDS SUMMARY | 2022-07-11 01:14 | XMS_ITS | Encounter Summary ---
:1945 Author Organization [facility] Address [address] [place] [address] Care Team Providers Name Role Phone Unavailable Primary Care Provider Unavailable Reason for Visit Reason Comments Pre-Surgical COVID-19 screening Encounter Details Date Type Department Care Team Description 02/26/2021 Clinical Department of Arron Patricio Pre-Surgical Communication Ophthalmology ar Knox M.D. COVID-19 screening [place], [place] [address] [place] [address] [address] [place] [phone] [phone] Social History Tobacco Use Types Packs/Day Years [...] or relatives? How often do you attend christian or More than 4 times per year 04/09/2022 jainism services? Do you belong to any clubs or Yes 04/09/2022 organizations such as christian groups, unions, fraternal or athletic groups, or [...] checks -Pt Understands and will contact the Room Manager if there are any changes or new symptoms (symptoms that are listed above). documented in this encounter Plan of Treatment Not on filedocumented as of this encounter Visit Diagnoses Not on filedocumented in this encounter
--- OUTSIDE RECORDS SUMMARY | 2022-07-11 01:14 | XMS_ITS | Encounter Summary ---
:1945 Author Organization [facility] Address [address] [place] [address] Care Team Providers Name Role Phone Elsewhere, Pcp Primary Care Provider Unavailable Reason for Referral Outpatient (Routine) - Closed Specialty Diagnoses / Procedures Referred By Contact Refer red To Contact Video Medicine Diagnoses [facility]CC[facility] Arturo Mckeon M.[facility] [address] [place] [address] Referral ID Status Reason Start Date Expiration Date Visits Requ ested Visits Authorized [id number] Closed 10/06/2021 10/06/2022 1 1 DING INSPECTOR Reason for Visit Appointment Request (Routine) - Closed Specialty Diagnoses / Procedures Referred By Contact Refer red To Contact Hematology Diagnoses Lymphoma (HCC) Referral ID Status Reason Start Date Expiration Date Visits Requ ested Visits Authorized [id number] Closed 07/23/2021 07/23/2022 1 1 Encounter Details Date Type Department Care Team Description 10/06/2021 Telemedicine Division of [facility] Waldenstrom's Hematology in Arturo Ricks Macroglobu linemia (HCC) [place] (Primary Dx) [place] [address] [facility] [address] [place] [phone] Social History Tobacco Use Types Packs/Day Years [...] audio/video technology by Soraya Ricks M.D. in [facility] to the patient in Patient's Home HISTORY OF PRESENT ILLNESS Patient is a 75 y.o. woman with Waldentrom's macroglobulinemia whose hematological history may be summarized as follows: 1. 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 6837-2280: Treated with rituximab, intermittently, totaling 10 different [...] the serum shows M spike of 0.9. [place]ona free light chain is 2.6 with a [...] labs locally and send to [facility] as a mail in. I will [...] above. Signed by: Soraya Ricks M.D. 10/06/2021 DING INSPECTOR documented in this encounter Plan of Treatment Scheduled Referrals Name Type Priority Associated Diagnoses Order S chedule Video anyplace Outpatient Routine Waldenstrom's Expected: visit Referral Macroglobulinemia (HCC) 03/23 (Approximate), Expires: 01/03/2023 documented as of this encounter Visit Diagnoses Diagnosis Waldenstrom's Macroglobulinemia (HCC) - Primary documented in this encounter Care Teams Hand Candle Molder Relationship Specialty Start Date End Date Elsewhere, Pcp PCP - General Family Medicine 03/04/21 documented as of this encounter
--- OUTSIDE RECORDS SUMMARY | 2022-07-11 01:14 | XMS_ITS | Encounter Summary ---
:1945 Author Organization [facility] Address [address] [place] [address] Care Team Providers Name Role Phone Unavailable Primary Care Provider Unavailable Reason for Referral Outpatient (Routine) - Closed Specialty Diagnoses / Procedures Referred By Contact Refer red To Contact Ophthalmology Arron Patricio M. D. [address] [phone] Referral ID Status Reason Start Date Expiration Date Visits Requ ested Visits Authorized [id number] Closed 01/01/2021 01/01/2022 1 1 Scheduling Instructions 3-4 weeks after surgery Outpatient (Routine) - Closed Specialty Diagnoses / Procedures Referred By Contact Refer red To Contact Ophthalmology Arron Patricio M. D. [address] [phone] Referral ID Status Reason Start Date Expiration Date Visits Requ ested Visits Authorized [id number] Closed 01/01/2021 01/01/2022 1 1 Reason for Visit Reason Comments Blurred Vision Appointment Request (Routine) - Closed Specialty Diagnoses / Procedures Referred By Contact Refer red To Contact Ophthalmology Diagnoses Cataract Referral ID Status Reason Start Date Expiration Date Visits Requ ested Visits Authorized [id number] Closed 11/10/2020 11/10/2021 1 1 Encounter Details Date Type Department Care Team Description 01/01/2021 Office Visit Department of Arron Patricio 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
--- OUTSIDE RECORDS SUMMARY | 2022-07-11 01:14 | XMS_ITS | Encounter Summary ---
:1945 Author Organization [facility] Address [address] [place] [address] Care Team Providers Name Role Phone Elsewhere, Pcp Primary Care Provider Unavailable Reason for Visit Reason Comments appt/insurance coverage Encounter Details Date Type Department Care Team Description 04/23/2021 Clinical Department of Arron Patricio appt/insuranc e Communication Ophthalmology ar Knox M.D. coverage [place], [place] [address] [place] [address] [address] [place] [phone] [phone] Social History Tobacco Use Types Packs/Day Years [...] or relatives? How often do you attend methodist or More than 4 times per year 04/09/2022 anabaptist services? Do you belong to any clubs or Yes 04/09/2022 organizations such as methodist groups, unions, fraternal or athletic groups, or [...] is covered for both? She had an financial analyst intern that day along w/provider so checking to see if entry was different. Insurance and Business office are stating they do not have correct info and/or wording on the appt. from ophthalmology. Try home number first: [phone] Cell 2nd: [phone] documented in this encounter Plan of Treatment Not on filedocumented as of this encounter Visit Diagnoses Not on filedocumented in this encounter Care Teams Car Worker Relationship Specialty Start Date End Date Elsewhere, Pcp PCP - General Family Medicine 03/04/21 documented as of this encounter
--- OUTSIDE RECORDS SUMMARY | 2022-07-11 01:14 | XMS_ITS | Encounter Summary ---
:1945 Author Organization [facility] Address [address] [place] [address] Care Team Providers Name Role Phone Elsewhere, Pcp Primary Care Provider Unavailable Encounter Details Date Type Department Care Team Description 09/07/2021 Hospital Department of Odeboltbo Waldenstrom's Encounter Laboratory Arturo Rciks, Macroglobul inemia (HCC) Medicine and M.D. Pathology, [place] [address] [place] [address] in [facility] [phone] [place] [phone] [place] [address] (Work) [place], [place] [phone] (Fax) [phone] Social History Tobacco Use Types Packs/Day Years [...] daily. 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 IMMUNOGLOBULIN FREE Routine 09/28/2021 10:25 Waldenstrom's Res ults for LIGHT CHAINS, S AM PASSEMENTERIE WORKER Macroglobulinemia (HCC) t his procedure are in the results section. CBC WITH DIFFERENTIAL, Routine 09/28/2021 10:25 Waldenstrom's Results for B AM PASSEMENTERIE WORKER Macroglobulinemia (HCC) this procedure are in the results section. IMMUNOGLOBULINS (IGG, Routine 09/28/2021 10:25 Waldenstrom's R esults for IGA, AND IGM), S AM PASSEMENTERIE WORKER Macroglobulinemia (HCC) this procedure are in the results section. LACTATE DEHYDROGENASE Routine 09/28/2021 10:25 Waldenstrom's R esults for (LD), S AM PASSEMENTERIE WORKER Macroglobulinemia (HCC) this procedure are in the results section. COMPREHENSIVE Routine 09/28/2021 10:25 Waldenstrom's Results f or METABOLIC PANEL, S/P AM PASSEMENTERIE WORKER Macroglobulinemia (H CC) this procedure are in the results section. documented in this encounter Results (ABNORMAL) Monoclonal Gammopathy Monitoring (09/28/2021 10:25 AM PASSEMENTERIE WORKER) [facility] Method Time Signature Therapeutic No 09/30/2021 [facility] Antibody 6:07 AM PASSEMENTERIE WORKER Administered? Total Protein, S 7.1 6.3 - 7.9 09/30/2021 [facility] g/dL 8:37 AM PASSEMENTERIE WORKER Albumin 3.8 3.4 - 4.7 09/30/2021 [facility] g/dL 3:00 PM PASSEMENTERIE WORKER Alpha-1 Globulin 0.3 0.1 - 0.3 09/30/2021 [facility] g/dL 3:00 PM PASSEMENTERIE WORKER Alpha-2 Globulin 1.0 0.6 - 1.0 09/30/2021 [facility] g/dL 3:00 PM PASSEMENTERIE WORKER Beta-Globulin 0.9 0.7 - 1.2 09/30/2021 [facility] g/dL 3:00 PM PASSEMENTERIE WORKER Gamma-Globulin 1.1 0.6 - 1.6 09/30/2021 [facility] g/dL 3:00 PM PASSEMENTERIE WORKER A/G Ratio 1.12 09/30/2021 [facility] 3:00 PM PASSEMENTERIE WORKER M spike 0.9 (H) g/dL 09/30/2021 [facility] 3:00 PM PASSEMENTERIE WORKER Impression M-spike in 09/30/2021 [facility] gamma 3:00 PM PASSEMENTERIE WORKER fraction. Specimen Anatomical Collection Method Collection Time Receive d Time (Source) Location / / Volume Laterality Blood (Blood, 09/28/2021 10:25 09/30/2021 6:07 Venous) AM PASSEMENTERIE WORKER AM PASSEMENTERIE WORKER Resulting Agency Comment Mailed In Specimen Arturo Ricks M.D. LAB BLOOD ADD-ON Performing Organization Address City/State/ZIP Code Phon e Number [facility] [address] [place] [address] [facility] [place] [address] Laboratory Medicine and Pathology [address] NATH (ABNORMAL) Immunoglobulins (IgG, IgA, and IgM) (09/28/2021 10:25 AM PASSEMENTERIE WORKER) Patholo gist Method Time Signature Immunoglobulin A 30 (L) 61 - 356 09/29/2021 [facility] (IgA), S mg/dL 5:38 PM PASSEMENTERIE WORKER Immunoglobulin M 1230 (H) 37 - 286 09/29/2021 [facility] (IgM), S mg/dL 6:07 PM PASSEMENTERIE WORKER Immunoglobulin G 301 (L) 767 - 09/29/2021 [facility] (IgG), S 1590 5:39 PM PASSEMENTERIE WORKER mg/dL Specimen Anatomical Collection Method Collection Time Receive d Time (Source) Location / / Volume Laterality Blood (Blood, 09/28/2021 10:25 09/29/2021 4:22 Venous) AM PASSEMENTERIE WORKER PM PASSEMENTERIE WORKER Resulting Agency Comment Mailed In Specimen Arturo Ricks M.D. LAB BLOOD ADD-ON Performing Organization Address City/State/ZIP Code Phon e Number [facility] [address] [place] [address] [facility] [place] [address] Laboratory Medicine and Pathology [address] [place] [address] Dr. NATH (ABNORMAL) Immunoglobulin Free Light Chains (09/28/2021 10:25 AM PASSEMENTERIE WORKER) Analysis Performed At Patho logist Time Signature [place] Free 2.60 (H) 0.3300 - 09/29/2021 [facility] Light Chain, S 1.94 mg/dL 5:18 PM PASSEMENTERIE WORKER Lambda Free 0.4200 (L) 0.5700 - 09/29/2021 [facility] Light Chain, S 2.63 mg/dL 5:34 PM PASSEMENTERIE WORKER [place]/Lambda 6.19 (H) 0.2600 - 09/29/2021 [facility] FLC Ratio 1.65 5:34 PM PASSEMENTERIE WORKER Specimen Anatomical Collection Method Collection Time Receive d Time (Source) Location / / Volume Laterality Blood (Blood, 09/28/2021 10:25 09/29/2021 4:22 Venous) AM PASSEMENTERIE WORKER PM PASSEMENTERIE WORKER Resulting Agency Comment Mailed In Specimen Arturo Ricks M.D. LAB BLOOD ADD-ON Performing Organization Address City/[facility]/ZIP Code Phon e Number [facility] [address] [place] [address] [place] [place] [address] Laboratory Medicine and Pathology [address] [place] [address] Dr. NATH LD (Lactate Dehydrogenase) (09/28/2021 10:25 AM PASSEMENTERIE WORKER) Analysis Performed At Patho logis Time Signature Lactate 168 122 - 222 09/29/2021 DTL Dehydrogenase U/L 2:36 PM PASSEMENTERIE WORKER (LD), S Specimen Anatomical Collection Method Collection Time Receive d Time (Source) Location / / Volume Laterality Blood (Blood, 09/28/2021 10:25 09/29/2021 Venous) AM PASSEMENTERIE WORKER 12:43 PM PASSEMENTERIE WORKER Resulting Agency Comment Mailed In Specimen Arturo Ricks M.D. LAB BLOOD NON ADD-ON Performing Organization Address City/State/ZIP Code Phon e Number [facility]IES - [address] [place], [place] [address] [facility] [place] [address] Laboratories-[facility] [address] (ABNORMAL) Comprehensive Metabolic Panel (09/28/2021 10:25 AM PASSEMENTERIE WORKER) P athologist Signature Potassium, S 4.0 3.6 - 5.2 09/29/2021 DTL mmol/L 2:42 PM PASSEMENTERIE WORKER Sodium, S 137 135 - 145 09/29/2021 DTL mmol/L 2:42 PM PASSEMENTERIE WORKER Chloride, S 95 (L) 98 - 107 09/29/2021 DTL mmol/L 2:42 PM PASSEMENTERIE WORKER Bicarbonate, S 27 22 - 29 09/29/2021 DTL mmol/L 2:42 PM PASSEMENTERIE WORKER Anion Gap 15 7 - 15 09/29/2021 DTL 2:42 PM PASSEMENTERIE WORKER BUN (Blood Urea 14 6 - 21 09/29/2021 DTL Nitrogen), S mg/dL 2:42 PM PASSEMENTERIE WORKER Creatinine 0.71 0.59 - 09/29/2021 DTL 1.04 mg/dL 2:42 PM PASSEMENTERIE WORKER eGFR-Non 83 >=60 09/29/2021 DTL Black/ mL/min/BSA 2:42 PM PASSEMENTERIE WORKER [place] Comment: ----ADDITIONAL INFORMATION---- Estimated GFR calculated using the 2009 CKD_EPI creatinine equation. eGFR-Black/ >90 >=60 mL/min/BSA 2021 2:42 PM PASSEMENTERIE WORKER DTL Comment: ----ADDITIONAL INFORMATION---- Estimated GFR calculated using the 2009 CKD_EPI creatinine equation. Calcium, Total, S 9.5 8.8 - 10.2 mg/dL 09/29/2021 2:42 PM PASSEMENTERIE WORKER DTL Glucose, S 99 70 - 140 mg/dL 09/29/2021 2:42 PM PASSEMENTERIE WORKER D TL Protein, Total, S 7.2 6.3 - 7.9 g/dL 09/29/2021 2:42 P M PASSEMENTERIE WORKER DTL Albumin, S 4.6 3.5 - 5.0 g/dL 09/29/2021 2:42 PM PASSEMENTERIE WORKER D TL Aspartate Aminotransferase (AST), 23 8 - 43 U/L 09/29 2:42 PM PASSEMENTERIE WORKER DTL S Alkaline Phosphatase, S 80 35 - 104 U/L 09/29/2021 2: 42 PM PASSEMENTERIE WORKER DTL Alanine Aminotransferase (ALT), S 24 7 - 45 U/L 09/29 2:42 PM PASSEMENTERIE WORKER DTL Bilirubin, Total, S 0.8 <=1.2 mg/dL 09/29/2021 2:42 PM PASSEMENTERIE WORKER DTL Specimen Anatomical Collection Method Collection Time Receive d Time (Source) Location / / Volume Laterality Blood (Blood, 09/28/2021 10:25 09/29/2021 Venous) AM PASSEMENTERIE WORKER 12:43 PM PASSEMENTERIE WORKER Resulting Agency Comment Mailed In Specimen Arturo Ricks M.D. LAB BLOOD ADD-ON Performing Organization Address City/State/ZIP Code Phon e Number [facility]IES - [address] [place], [place] [address] [facility] [place] [address] Laboratories-[facility] [address] [facility] (ABNORMAL) CBC with Differential, Blood (09/28/2021 10:25 AM PASSEMENTERIE WORKER) [facility] gist Method Time Signature Hemoglobin 14.5 11.6 - 09/29/2021 DTL 15.0 g/dL 2:15 PM PASSEMENTERIE WORKER Hematocrit 42.1 35.5 - 09/29/2021 DTL 44.9 % 2:15 PM PASSEMENTERIE WORKER Erythrocytes 4.79 3.92 - 09/29/2021 DTL 5.13 2:15 PM PASSEMENTERIE WORKER x10(12)/L MCV 87.9 78.2 - 09/29/2021 DTL 97.9 fL 2:15 PM PASSEMENTERIE WORKER RBC Distrib Width 13.2 12.2 - 09/29/2021 DTL 16.1 % 2:15 PM PASSEMENTERIE WORKER Platelet Count 269 157 - 371 09/29/2021 DTL x10(9)/L 2:15 PM PASSEMENTERIE WORKER Leukocytes 3.4 3.4 - 9.6 09/29/2021 DTL x10(9)/L 2:15 PM PASSEMENTERIE WORKER Neutrophils 2.26 1.56 - 09/29/2021 DTL 6.45 2:15 PM PASSEMENTERIE WORKER x10(9)/L Lymphocytes 0.59 (L) 0.95 - 09/29/2021 DTL 3.07 2:15 PM PASSEMENTERIE WORKER x10(9)/L Monocytes 0.38 0.26 - 09/29/2021 DTL 0.81 2:15 PM PASSEMENTERIE WORKER x10(9)/L Eosinophils 0.12 0.03 - 09/29/2021 DTL 0.48 2:15 PM PASSEMENTERIE WORKER x10(9)/L Basophils <0.03 0.01 - 09/29/2021 DTL 0.08 2:15 PM PASSEMENTERIE WORKER x10(9)/L Specimen Anatomical Collection Method Collection Time Receive d Time (Source) Location / / Volume Laterality Blood (Blood, 09/28/2021 10:25 09/29/2021 Venous) AM PASSEMENTERIE WORKER 12:43 PM PASSEMENTERIE WORKER Resulting Agency Comment Mailed In Specimen Arturo Ricks M.D. LAB BLOOD ADD-ON Performing Organization Address City/State/ZIP Code Phon e Number [facility] - [address] [place], [place] [address] [facility] [place] [address] Laboratories-[facility] [address] documented in this encounter Visit Diagnoses Diagnosis Waldenstrom's Macroglobulinemia (HCC) documented in this encounter Care Teams Military Administrative Technician Relationship Specialty Start Date End Date Elsewhere, Pcp PCP - General Family Medicine 03/04/21 documented as of this encounter
--- OUTSIDE RECORDS SUMMARY | 2022-07-11 01:15 | XMS_ITS | Encounter Summary ---
:1945 Author Organization [facility] Address [address] [place] [address] Care Team Providers Name Role Phone Unavailable Primary Care Provider Unavailable Reason for Referral Outpatient (Routine) - Closed Specialty Diagnoses / Procedures Referred By Contact Refer red To Contact Hematology Oncology Rika [place] M.D. [address] [place] [phone] Referral ID Status Reason Start Date Expiration Date Visits Requ ested Visits Authorized [id number] Closed 10/02/2019 10/01/2020 1 1 PRODUCTION WORKER Encounter Details Date Type Department Care Team Description 09/26/2019 Orders Only Division of Daisy López's Hematology in A, R.N. Macroglobulinemia (HCC) [place], [place] [address] [place] [address] (Primary Dx) [address] [place] [phone] Social History Tobacco Use Types Packs/Day Years [...] or relatives? How often do you attend sabianism or More than 4 times per year 04/09/2022 congregational services? Do you belong to any clubs or Yes 04/09/2022 organizations such as sabianism groups, unions, fraternal or athletic groups, or [...] highest level of school Associate degree: academ [email or web address] program 03/01/2019 you have completed or the [...]
--- OUTSIDE RECORDS SUMMARY | 2022-07-11 01:15 | XMS_ITS | Encounter Summary ---
:1945 Author Organization [facility] Address [address] [place] [address] Care Team Providers Name Role Phone Unavailable Primary Care Provider Unavailable Encounter Details Date Type Department Care Team Description 03/09/2018 Hospital Department of Cameron, Waldenstrom's Macroglobulinemia (HCC); Encounter Laboratory Rika Smith M.D. [facility] Medicine and [address] [place] [address] [place] [address] [facility] [phone] [place] (Work) [address] [place] [address] [place], [place] (Fax) [phone] Social History Tobacco Use [...] daily. 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 URIC ACID, S/P Routine 03/09/2018 3:01 Waldenstrom's Results f or PM CDT Macroglobulinemi a [...] Signature Creatine 63 26 - 192 03/09/2018 [facility] Kinase (CK), S U/L 3:57 PM CDT LABORATORIES - [facility] Specimen Anatomical Collection Method Collection Time Receive d Time (Source) Location / / Volume Laterality Blood (Blood, 03/09/2018 3:01 PM 03/09/20 18 3:20 Venous) CDT PM CDT Rika Cameron M.D. LAB BLOOD ADD-ON Performing Organization Address City/[facility]/ZIP Code Phon e Number [facility] LABORATORIES - [address] C-Reactive Protein, High Sensitivity (03/09/2018 3:01 PM CDT) athologist [facility] C-Reactive 1.8 <2.0 mg/L 03/10/2018 [facility] Protein, High 9:21 AM CDT LABORATORIES - Sens, S [facility] Comment: Lower risk Specimen Anatomical Collection Method Collection Time Receive d Time (Source) Location / / Volume Laterality Blood (Blood, 03/09/2018 3:01 PM 03/09/20 18 4:22 Venous) CDT PM CDT Rika Cameron M.D. LAB BLOOD ADD-ON Performing Organization Address [facility]/ZIP Code Phon e Number [facility] LABORATORIES - 200 [place] [address] [facility] Iron (03/09/2018 3:01 PM CDT) athologist [facility] Iron, S 71 35 - 145 03/09/2018 [facility] mcg/dL 3:57 PM CDT [facility] - [facility] Specimen Anatomical Collection Method Collection Time Receive d Time (Source) Location / / Volume Laterality Blood (Blood, 03/09/2018 3:01 PM 03/09/20 18 3:20 Venous) CDT PM CDT Rika Cameron M.D. LAB BLOOD ADD-ON Performing Organization Address City/[facility]/ZIP Code Phon e Number [facility] LABORATORIES - 200 [place] [address] [facility] S-TSH (Thyroid-Stimulating Hormone - Sensitive) (03/09/2018 3:01 PM CDT) athologist [facility] TSH, Sensitive 3.2 0.3 - 4.2 03/09/2018 [facility] mIU/L 3:57 PM CDT LABORATORIES - [facility] Specimen Anatomical Collection Method Collection Time Receive d Time (Source) Location / / Volume Laterality Blood (Blood, 03/09/2018 3:01 PM 03/09/20 18 3:20 Venous) CDT PM CDT Rika Cameron M.D. LAB BLOOD ADD-ON Performing Organization Address City/State/ZIP Code Phon e Number [facility] LABORATORIES - 200 [place] [address] [facility] Lipase (03/09/2018 3:01 PM CDT) P athologist Signature Lipase, S 27 12 - 61 U/L 03/09/2018 [facility] 3:57 PM CDT LABORATORIES - [facility] Specimen Anatomical Collection Method Collection Time Receive d Time (Source) Location / / Volume Laterality Blood (Blood, 03/09/2018 3:01 PM 03/09/20 18 3:20 Venous) CDT PM CDT Rika Cameron M.D. LAB BLOOD ADD-ON Performing Organization Address City/State/ZIP Code Phon e Number [facility] LABORATORIES - 200 [place] [address] 05 [facility] GGT (Gamma-Glutamyltransferase) (03/09/2018 3:01 PM CDT) Component Value Ref Test Analysis Performed At Patholo gist Range Method Time Signature Gamma 12 5 - 36 03/09/2018 [facility] Glutamyltransferase U/L 3:57 PM CDT LABORATO ARYAN - (GGT), [facility] Specimen Anatomical Collection Method Collection Time Receive d Time (Source) Location / / Volume Laterality Blood (Blood, 03/09/2018 3:01 PM 03/09/20 18 3:20 Venous) CDT PM CDT Rika Cameron M.D. LAB BLOOD ADD-ON Performing Organization Address City/State/ZIP Code Phon e Number [facility] LABORATORIES - [address] [place] [address] 05 [facility] BUN (Blood Urea Nitrogen) (03/09/2018 3:01 PM CDT) P athologist Signature BUN (Blood 19 6 - 21 03/09/2018 [facility] Urea mg/dL 3:57 PM CDT LABORATORIES - Nitrogen), [facility] Specimen Anatomical Collection Method Collection Time Receive d Time (Source) Location / / Volume Laterality Blood (Blood, 03/09/2018 3:01 PM 03/09/20 18 3:20 Venous) CDT PM CDT Rika Cameron M.D. LAB BLOOD ADD-ON Performing Organization Address City/State/ZIP Code Phon e Number [facility] LABORATORIES - [address] [place] [address] [facility] Uric Acid (03/09/2018 3:01 PM CDT) athologist Signature Uric Acid, S 3.9 2.7 - 6.1 03/09/2018 [facility] mg/dL 3:57 PM CDT LABORATORIES - [facility] Specimen Anatomical Collection Method Collection Time Receive d Time (Source) Location / / Volume Laterality Blood (Blood, 03/09/2018 3:01 PM 03/09/20 18 3:20 Venous) CDT PM CDT Rika Cameron M.D. LAB BLOOD ADD-ON Performing Organization Address City/[facility]/ZIP Code Phon e Number [facility] LABORATORIES - [address] [place] [address] [facility] LD (Lactate Dehydrogenase) (03/09/2018 3:01 PM CDT) [facility] gist Method Time Signature Lactate 149 122 - 222 03/09/2018 [facility] Dehydrogenase U/L 3:57 PM CDT LABORATORIES - (LD), S [facility] Specimen Anatomical Collection Method Collection Time Receive d Time (Source) Location / / Volume Laterality Blood (Blood, 03/09/2018 3:01 PM 03/09/20 18 3:20 Venous) CDT PM CDT Rika Cameron M.D. LAB BLOOD NON ADD-ON Performing Organization Address City/[facility]/ZIP Code Phon e Number [facility] LABORATORIES - [address] [place] [address] [facility] Calcium, Total (03/09/2018 3:01 PM CDT) athologist [facility] Calcium, 9.3 8.8 - 10.2 03/09/2018 [facility] Total, S mg/dL 3:57 PM CDT LABORATORIES - [facility] Specimen Anatomical Collection Method Collection Time Receive d Time (Source) Location / / Volume Laterality Blood (Blood, 03/09/2018 3:01 PM 03/09/20 18 3:20 Venous) CDT PM CDT Rika Cameron M.D. LAB BLOOD ADD-ON Performing Organization Address City/State/ZIP Code Phon e Number [facility] LABORATORIES - [address] [place] [address] 05 [facility] ALT (Alanine Aminotransferase) (03/09/2018 3:01 PM CDT) Patholo gist Method Time Signature Alanine 18 7 - 45 03/09/2018 [facility] Aminotransferase U/L 3:57 PM CDT LABORATORIE S - (ALT), S [facility] Specimen Anatomical Collection Method Collection Time Receive d Time (Source) Location / / Volume Laterality Blood (Blood, 03/09/2018 3:01 PM 03/09/20 18 3:20 Venous) CDT PM CDT Rika Cameron M.D. LAB BLOOD ADD-ON Performing Organization Address City/State/ZIP Code Phon e Number [facility] LABORATORIES - [address] [place], [place] [address] [facility] documented in this encounter Visit Diagnoses Diagnosis Waldenstrom's Macroglobulinemia (HCC) Fatigue documented in this encounter
--- OUTSIDE RECORDS SUMMARY | 2022-07-11 01:15 | XMS_ITS | Encounter Summary ---
:1945 Author Organization [facility] Address [address] [place] [address] Care Team Providers Name Role Phone Unavailable Primary Care Provider Unavailable Reason for Visit Reason Comments Please call pt Encounter Details Date Type Department Care Team Description 03/25/2020 Clinical Communication Division of Rika Cameron call pt Hematology in [place], [place] [address] [place] [address] [address] [place] [address] [phone] Social History Tobacco Use Types Packs/Day Years [...] More than 4 times per year 04/09/2022 zoroastrian services? Do you belong to any clubs [...] the highest level of school Associate degree: [employer] program 03/01/2019 you have completed or the highest degree you have received? Sex Assigned at Date Recorded Female 03/05/2018 7:34 PM CDT documented as of this encounter Miscellaneous Notes Telephone Encounter - Bel Gomez R.N. - 03/28/2020 3:17 PM CDT Returned call to patient. Because of her 's appointments in [place] next week, patient asks to have her labs done Tuesday at the [facility] (not part of the [facility]). That way, her full set [...] been sent yet. Please send to the [facility] She is requesting that we please call her to let her know when the order has been sent: [phone] Or send her a portal message Thank you, Mary Telephone Encounter - Daisy López R.N. - 03/26/2020 8:[address] Brown, Sarah's also was diagnosed with Waldnstrom's with treatment in [place]. Micah, , has appointments on April 04. Sarah would like to draw her labs in [place] (I will arrange in advance of the appointment), but she questions if you could see her in the afternoon on April 04. 1 pm or later? She cannot make the morning appointment. Telephone Encounter - Ann Marie Massey - 03/25/2020 4:29 PM CDT Summer, Please call pt at [phone]. She wanted to speak with a nurse regarding her upcoming appointments. Thank you for your time. documented in this encounter Plan of Treatment Not on filedocumented as of this encounter Visit Diagnoses Not on filedocumented in this encounter
--- OUTSIDE RECORDS SUMMARY | 2022-07-11 01:15 | XMS_ITS | Encounter Summary ---
:1945 Author Organization [facility] Address [address] [place] [address] Care Team Providers Name Role Phone Unavailable Primary Care Provider Unavailable Encounter Details Date Type Department Care Team Description 12/23/2018 Clinical Communication Division of Hematology Rika Cameron in Sarah Castillo M.D. [address] [place] [phone] Social History Tobacco Use Types Packs/Day Years [...] Telephone Encounter - Rika Cameron M.D. - 12/25/2018 1:16 PM CDT I can see her when I am scheduled on [facility] - Mon 03/05 at 3pm. Thanks! Telephone Encounter - Ann Marie Massey - 12/23/2018 11:[address] Cameron, I called pt to schedule her February return. She is fine seeing Yuan but would prefer to see you - I explained I only have openings with Yuan the last couple weeks in February so far. She was wondering, since her labs last time were fine - could she have labs done locally again and sent for your review and if they continue to be fine, she could skip the trip here for a visit? Please advise, and thank you for your time. AO: Call pt at [phone]. documented in this encounter Plan of Treatment Not on filedocumented as of this encounter Visit Diagnoses Not on filedocumented in this encounter
--- OUTSIDE RECORDS SUMMARY | 2022-07-11 01:15 | XMS_ITS | Encounter Summary ---
:1945 Author Organization [facility] Address [address] [place] [address] Care Team Providers Name Role Phone Unavailable Primary Care Provider Unavailable Reason for Referral Outpatient (Routine) - Closed Specialty Diagnoses / Procedures Referred By Contact Refer red To Contact Hematology Oncology Judy Aleman [facility] Arturo Mckeon M.D. [address] [place] [phone] Referral ID Status Reason Start Date Expiration Date Visits Requ ested Visits Authorized [id number] Closed 10/02/2020 10/02/2021 1 1 YARD SUPERVISOR Reason for Visit Outpatient (Routine) - Closed Specialty Diagnoses / Procedures Referred By Contact Refer red To Contact Arturo Aleman M.D. [address] [phone] Referral ID Status Reason Start Date Expiration Date Visits Requ ested Visits Authorized [id number] Closed 04/04/2020 04/04/2021 1 1 Encounter Details Date Type Department Care Team Description 10/02/2020 Virtual Visit Division of [place] [facility] Hematology in Arturo Ricks Macroglperez linechristi (HCC) Ana Castillo (Primary Dx) [address] [phone] Social History Tobacco Use Types Packs/Day Years [...] the patient and/or family member. concerning Sarah Meyer 's Waldentrom's macroglobulinemia. Patient last seen by [...] to continue observation with a repeat visit, fgor-eg-sdyu, in approximately 6 months. Orders placed. We [...] the Nephrology hypertension Clinic here [facility] if he needs a 2nd opinion. I recommended immunization against COVID-19 as soon as available in her community. No further questions at this time. YARD SUPERVISOR documented in this encounter Plan of Treatment Scheduled Referrals Name Type Priority Associated Order Schedule Diagnoses Hematology office Outpatient Referral Routine Exp ected: visit (clinic) 04/01/2021 (Approximate), Expires: 10/02/2023 documented as of this encounter Results (ABNORMAL) Immunoglobulins (IgG, IgA, and IgM) (04/07/2021 8:04 AM CDT) [facility] Time Signature Immunoglobulin A 29 (L) 61 [...] 10:21 AM CDT Authorizing Provider Result Sammi Ricks M.D. LAB BLOOD ADD-ON Performing Organization Address City/State/ZIP Code Phon e Number [facility] [address] [place], [place] [address] [facility] [place] [address] Laboratory Medicine and Pathology [address] [...] [facility] [address] [place], [place] [address] [facility] [place] [address] [facility] [place] [address] Potassium (04/07/2021 8:04 AM CDT) athologist Signature Potassium, S 4.0 3.6 - [...] [facility] - [address] [place], [place] [address] [facility] [place] [address] [facility] [place] [address] (ABNORMAL) Monoclonal Gammopathy Monitoring [...] HOSPITAL [address] [place], [place] [address] [facility] [place] [address] Laboratory Medicine and Pathology [address] [place] (ABNORMAL) Immunoglobulin Free Light Chains (04/07/2021 8:04 AM CDT) Analysis Performed At Patho logist Time Signature [place] Free 2.17 (H) 0.3300 - 04/07/2021 [facility] Light Chain, S 1.94 mg/dL 11:18 AM CDT Lambda Free 0.4200 (L) 0.5700 - 04/07/2021 [facility] Light Chain, S 2.63 mg/dL 11:33 AM CDT [place]/Lambda 5.17 (H) 0.2600 - 04/07/2021 [facility] Ratio 1.65 11:33 AM CDT Specimen Anatomical Collection Method Collection Time Receive d Time (Source) Location / / Volume Laterality Blood (Blood, 04/07/2021 8:04 AM 04/07/20 Venous) CDT 10:52 AM CDT Arturo Ricks M.D. LAB BLOOD ADD-ON Performing Organization Address City/State/ZIP Code Phon e Number [facility] [address] [place], [place] [address] [facility] [place] [address] Laboratory Medicine and Pathology [address] [place] Creatinine with Estimated GFR (04/07/2021 8:04 AM CDT) P athologist Signature Creatinine 0.69 0.59 - 04/07/2021 DTL 1.04 mg/dL 9:29 AM CDT eGFR-Non 85 >=60 04/07/2021 DTL Black/ mL/min/BSA 9:29 AM CDT [place] Comment: ----ADDITIONAL INFORMATION---- Estimated GFR calculated using [...] [facility] - [address] [place], [place] [address] [facility] [place] [address] [facility] [address] (ABNORMAL) CBC no call back, reflex T/S [...] [facility] - [address] [place], [place] [address] [facility] [place] [address] [facility] [address] Calcium, Total (04/07/2021 8:04 AM CDT) P athologist Signature Calcium, Total, 9.6 8.8 - 10.2 04/07/2021 DTL S mg/dL 9:29 AM CDT Specimen Anatomical Collection Method Collection Time Receive d Time (Source) Location / / Volume Laterality Blood (Blood, 04/07/2021 8:04 AM 04/07/20 8:58 Venous) CDT AM CDT Arturo Ricks M.D. LAB BLOOD ADD-ON Performing Organization Address City/State/[facility] Code Phon e Number [facility] - [address] [place], [place] [address] [place] [address] First [facility] AST (Aspartate Aminotransferase) (04/07/2021 8:04 [...] M.D. LAB BLOOD ADD-ON Performing Organization Address City/[facility]/ZIP Code Phon e Number [facility] - 200 [place], [place] [address] [place] [address] [place] [address] [address] [facility] Alkaline Phosphatase (04/07/2021 8:04 AM CDT) P athologist Signature Alkaline 70 35 - 104 04/07/2021 DTL Phosphatase, S U/L 9:29 AM CDT Specimen Anatomical Collection Method Collection Time Receive d Time (Source) Location / / Volume Laterality Blood (Blood, 04/07/2021 8:04 AM 04/07/20 8:58 Venous) CDT AM CDT Authorizing Provider Result Sammi Ricks M.D. LAB BLOOD ADD-ON Performing Organization Address City/[facility]/ZIP Code Phon e Number [facility] - [address] [place], [place] [address] [place] [address] [facility] [address] documented in this encounter Visit Diagnoses Diagnosis Waldenstrom's Macroglobulinemia (HCC) - Primary documented in this encounter
--- OUTSIDE RECORDS SUMMARY | 2022-07-11 01:15 | XMS_ITS | Encounter Summary ---
:1945 Author Organization [facility] Address [address] [place] [address] Care Team Providers Name Role Phone Unavailable Primary Care Provider Unavailable Reason for Visit Reason Comments April 04 appt Encounter Details Date Type Department Care Team Description 04/01/2020 Clinical Communication Division of Rika Cameron 14 appt Hematology in Ana Smith [place], [place] [address] [facility] [address] [place] [phone] Social History Tobacco Use Types Packs/Day Years [...] the highest level of school Associate degree: [employer] program 03/01/2019 you have completed or the highest degree you have received? Sex Assigned at Date Recorded Female 03/05/2018 7:34 PM CDT documented as of this encounter Miscellaneous Notes Telephone Encounter - Daisy López RGhislaine. - 04/01/2020 3:49 PM CDT Sarah had her blood drawn today. Reviewed April [address] Brown. Telephone Encounter - Erika Denise - 04/01/2020 2:44 PM CDT Due to her 's appointments, the earliest she is able to be here on April 04, is 1:00pm. Please let her know if this will not work. She can be reached at [phone]. documented in this encounter Plan of Treatment Not on filedocumented as of this encounter Visit Diagnoses Not on filedocumented in this encounter
--- OUTSIDE RECORDS SUMMARY | 2022-07-11 01:15 | XMS_ITS | Encounter Summary ---
:1945 Author Organization [facility] Address [address] [place] [address] Care Team Providers Name Role Phone Unavailable Primary Care Provider Unavailable Reason for Visit Reason Comments COVID Inquiry Encounter Details Date Type Department Care Team Description 04/03/2020 Clinical Communication Division of Kevin Ricks , ALVINA Cast Hematology in Arturo Mckeon M.D. [place], [facility] [address] [place], [place] [address] [place] [phone] [place], [place] [phone] (Wo rk) [phone] Social History Tobacco Use Types Packs/Day Years [...] More than 4 times per year 04/09/2022 protestant services? Do you belong to any clubs [...] - 04/03/2020 9:54 AM CDT ([facility] and [facility] locations only: If the patient is [...] reply to: desk 1 Scheduling Contact Number: [phone] documented in this encounter Plan of Treatment Not on filedocumented as of this encounter Visit Diagnoses Not on filedocumented in this encounter
--- OUTSIDE RECORDS SUMMARY | 2022-07-11 01:15 | XMS_ITS | Encounter Summary ---
:1945 Author Organization [facility] Address [address] [place] [address] Care Team Providers Name Role Phone Unavailable Primary Care Provider Unavailable Reason for Visit Reason Comments COVID Nurse Line Encounter Details Date Type Department Care Team Description 02/07/2020 Clinical Communication Division of ALVINA Cameron Nurse Rosalie Hematology in Rika Smith M.D. [place], [address] [place], [place] [address] [address] [place], [place] [phone] (Work) [phone] Social History Tobacco Use Types Packs/Day Years [...] highest level of school Associate degree: [employer] 03/01/2019 you have completed or the highest degree you have received? Sex Assigned at Date Recorded Female 03/05/2018 7:34 PM CDT documented as of this encounter Miscellaneous Notes Telephone Encounter - Makenzie Fontanez - 02/07/2020 1:50 PM CDT (Note for [facility] locations only: If the patient states [...] 14 days? 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
--- OUTSIDE RECORDS SUMMARY | 2022-07-11 01:15 | XMS_ITS | Encounter Summary ---
:1945 Author Organization [facility] Address [address] [place] [address] Care Team Providers Name Role Phone Unavailable Primary Care Provider Unavailable Reason for Referral Outpatient (Routine) - Closed Specialty Diagnoses / Procedures Referred By Referred To Contact Contact Hematology Oncology Diagnoses Waldenstrom's Macroglobulinemia (HCC) Rika Cameron M.D. [address] [place] [address] Referral ID Status Reason Start Date Expiration Date Visits Requ ested Visits Authorized [id number] Closed 09/11/2018 09/11/2019 1 1 WORK FINISHER HAND Reason for Visit Outpatient (Routine) - Closed Specialty Diagnoses / Procedures Referred By Contact Refer red To Contact Hematology Oncology Rika Cameron [place] M.D. [address] [place] [address] Referral ID Status Reason Start Date Expiration Date Visits Requ ested Visits Authorized [id number] Closed 03/09/2018 03/09/2019 1 1 Encounter Details Date Type Department Care Team Description 09/11/2018 Office Visit Division of Kiko Cameron (Primary Dx); Hematology in Rika Smith M.D. Waldenstrom's Macroglobulinemia (HCC) [place], [place] [address] [facility] [address] [place] [phone] Social History Tobacco Use Types Packs/Day Years [...] More than 4 times per year 04/09/2022 church services? Do you belong to any clubs [...] Comments Blood Pressure 128/74 09/11/2018 10:12 AM FLATWORK FINISHER HAND Pulse 69 09/11/2018 10:12 AM FLATWORK FINISHER HAND Temperature 36.5 ??C (97.7 ??F) 09/11/2018 10:12 AM FLATWORK FINISHER HAND Respiratory Rate - - Oxygen Saturation - - Inhaled Oxygen Concentration - - Weight 64.7 kg (142 lb 10.2 oz) 09/11/2018 10:12 AM FLATWORK FINISHER HAND Height 167.3 cm (5' 5.87) 09/11/2018 10:12 AM FLATWORK FINISHER HAND Body Mass Index 23.12 09/11/2018 10:12 AM FLATWORK FINISHER HAND documented in this encounter Progress Notes Rika [...] with the illness and subsequent of her lrlidt-pa-epl in July. About a week after the [...] well-nourished. Eyes: Left eye lid drooping, conjunctival [place] colored lesion noted at the superior portion [...] by: Rika Cameron M.D. 09/11/2018 11:12 AM WORK FINISHER HAND documented in this encounter Plan of Treatment Scheduled Referrals Name Type Priority Associated Diagnoses Order S [facility] Hematology office Outpatient Routine Waldenstrom's Expected: visit (clinic) Referral Macroglobulinemia (HCC) (Approximate), Expires: 09/11/2019 documented as of this encounter Procedures Procedure Name Priority Date/Time Associated Diagnosis Comme nts SODIUM, S/P Routine 09/11/2018 7:01 AM Weakness General Resul ts for this FLATWORK FINISHER HAND procedure are i n the results section . POTASSIUM, S/P Routine 09/11/2018 7:01 AM Weakness General Res ults for this FLATWORK FINISHER HAND procedure are i n the results section . CORTISOL, S Routine 09/11/2018 7:01 AM Weakness General Resul ts for this FLATWORK FINISHER HAND procedure are i n the results section . documented in this encounter Results (ABNORMAL) Immunoglobulin M (IgM) (03/05/2019 9:18 AM CDT) [facility] Method Time Signature Immunoglobulin M 1310 (H) 37 - 286 03/05/2019 (IgM), S mg/dL 5:13 PM CDT Specimen Anatomical Collection Method Collection Time Receive d Time (Source) Location / / Volume Laterality Blood (Blood, 03/05/2019 9:18 AM 03/05/20 19 1:27 Venous) CDT PM CDT Rika Cameron M.D. LAB BLOOD ADD-ON Performing Organization Address City/State/ZIP Code Phon e Number [facility] [address], [place] [address] [facility] Sodium (03/05/2019 9:18 AM CDT) P athologist Signature Sodium, S 136 135 - 145 03/05/2019 mmol/L 10:21 AM CDT Specimen Anatomical Collection Method Collection Time Receive d Time (Source) Location / / Volume Laterality Blood (Blood, 03/05/2019 9:18 AM 03/05/20 19 9:39 Venous) CDT AM CDT Rika Cameron M.D. LAB BLOOD ADD-ON Performing Organization Address City/[facility]/ZIP Code Phon e Number [facility] - [address] [place] [address] [facility] Potassium (03/05/2019 9:18 AM CDT) P athologist Signature Potassium, S 3.9 3.6 - 5.2 03/05/2019 mmol/L 10:21 AM CDT Specimen Anatomical Collection Method Collection Time Receive d Time (Source) Location / / Volume Laterality Blood (Blood, 03/05/2019 9:18 AM 03/05/20 19 9:39 Venous) CDT AM CDT Rika Cameron M.D. LAB BLOOD ADD-ON Performing Organization Address City/[facility]/ZIP Code Phon e Number [facility] - [address] [place] [address] [facility] (ABNORMAL) Monoclonal Gammopathy Screen (03/05/2019 9:18 AM CDT) Component Value Ref Test Analysis Performed At Patholo gist Range Method Time Signature Total 6.5 6.3 - 03/05/2019 Protein, S 7.9 g/dL 2:44 PM CDT [place] Free 2.25 (H) 0.3300 - 03/05/2019 Light Chain, 1.94 7:08 PM CDT S mg/dL Lambda Free 0.5970 0.5700 - 03/05/2019 Light Chain, 2.63 4:33 PM CDT S mg/dL [place]/Lambda 3.77 (H) 0.2600 - 03/05/2019 [facility] Ratio [...] and its performa nce characteristics determined by [facility] in a manner consistent with CLIA requirements. [...] Address City/State/ZIP Code Phon e Number [facility] [address], [place] [address] [facility] Creatinine with Estimated GFR (03/05/2019 9:18 AM CDT) P athologist Signature Creatinine 0.64 0.59 - 03/05/2019 1.04 mg/dL 10:21 AM CDT eGFR-Non 88 >=60 03/05/2019 Black/ mL/min/BSA 10:21 AM CDT [place] Comment: ----ADDITIONAL INFORMATION---- Estimated GFR calculated using [...] Address City/State/ZIP Code Phon e Number [facility] - [address] [place] [address] [facility] (ABNORMAL) CBC with Differential (03/05/2019 9:18 AM CDT) [facility] Method Time Signature Hemoglobin 12.4 11.6 [...] M.D. LAB BLOOD ADD-ON Performing Organization Address City/[facility]/ZIP [facility] [place] Number [facility] - [address] Bilirubin, Total (03/05/2019 9:18 AM CDT) P athologist Signature Bilirubin, 0.5 <=1.2 mg/dL 03/05/2019 Total, S 10:21 AM CDT Specimen Anatomical Collection Method Collection Time Receive d Time (Source) Location / / Volume Laterality Blood (Blood, 03/05/2019 9:18 AM 03/05/20 9:39 Venous) CDT AM CDT Rika Cameron M.D. LAB BLOOD ADD-ON Performing Organization Address City/[facility]/ZIP Code Phon e Number [facility] - [address] AST (Aspartate Aminotransferase) (03/05/2019 9:18 AM CDT) [facility] Method Time Signature Aspartate 16 8 - 43 03/05/2019 Aminotransferase U/L 10:21 AM CDT (AST), S Specimen Anatomical Collection Method Collection Time Receive d Time (Source) Location / / Volume Laterality Blood (Blood, 03/05/2019 9:18 AM 03/05/20 9:39 Venous) CDT AM CDT Rika Cameron M.D. LAB BLOOD ADD-ON Performing Organization Address City/[facility]/ZIP Code Phon e Number [facility] - [address] [place] [address] [facility] Alkaline Phosphatase (03/05/2019 9:18 AM CDT) P athologist Signature Alkaline 58 35 - 104 03/05/2019 Phosphatase, S U/L 10:21 AM CDT Specimen Anatomical Collection Method Collection Time Receive d Time (Source) Location / / Volume Laterality Blood (Blood, 03/05/2019 9:18 AM 03/05/20 9:39 Venous) CDT AM CDT Rika Cameron M.D. LAB BLOOD ADD-ON Performing Organization Address City/[facility]/ZIP Code Phon e Number [facility] - [address] [place] [address] [facility] Potassium (09/11/2018 7:01 AM FLATWORK FINISHER HAND) P athologist Signature Potassium, S 4.4 3.6 - 5.2 09/11/2018 [facility] mmol/L 11:23 AM FLATWORK FINISHER HAND [facility]ATORIES [facility] Specimen Anatomical Collection Method Collection Time Receive d Time (Source) Location / / Volume Laterality Blood (Blood, 09/11/2018 7:01 AM 09/11/19 Venous) FLATWORK FINISHER HAND 10:59 AM FLATWORK FINISHER HAND Rika Cameron M.D. LAB BLOOD ADD-ON Performing Organization Address City/[facility]/ZIP Code Phon e Number [facility] - [address] [place] [address] [facility] Sodium (09/11/2018 7:01 AM FLATWORK FINISHER HAND) P athologist Signature Sodium, S 136 135 - 145 09/11/2018 [facility] mmol/L 11:23 AM FLATWORK FINISHER HAND [facility] Specimen Anatomical Collection Method Collection Time Receive d Time (Source) Location / / Volume Laterality Blood (Blood, 09/11/2018 7:01 AM 09/11/19 Venous) FLATWORK FINISHER HAND 10:59 AM FLATWORK FINISHER HAND Rika Cameron M.D. LAB BLOOD ADD-ON Performing Organization Address City/[facility]/ZIP Code Phon e Number [facility] - [address] [place] [address] [facility] Cortisol (09/11/2018 7:01 AM FLATWORK FINISHER HAND) P athologist Signature Cortisol AM 19 7 - 25 09/11/2018 [facility] Result mcg/dL 12:03 PM FLATWORK FINISHER HAND [facility] Specimen Anatomical Collection Method Collection Time Receive d Time (Source) Location / / Volume Laterality Blood (Blood, 09/11/2018 7:01 AM 09/11/19 19 Venous) FLATWORK FINISHER HAND 10:59 AM FLATWORK FINISHER HAND Rika Cameron M.D. LAB BLOOD ADD-ON Performing Organization Address City/State/ZIP Code Phon e Number [facility] - [address] [place] [address] [facility] documented in this encounter Visit Diagnoses Diagnosis Weakness General - Primary Waldenstrom's Macroglobulinemia (HCC) documented in this encounter
--- OUTSIDE RECORDS SUMMARY | 2022-07-11 01:15 | XMS_ITS | Encounter Summary ---
:1945 Author Organization [facility] Address [address] [place] [address] Care Team Providers Name Role Phone Unavailable Primary Care Provider Unavailable Encounter Details Date Type Department Care Team Description 04/08/2020 Orders Only Division of Daisy López's Hematology in A, R.N. Macroglobulinemia (HCC) [place], [place] [address] [place] [address] (Primary Dx) [address] [place] [address] [phone] Social History Tobacco Use Types Packs/Day Years [...]
--- OUTSIDE RECORDS SUMMARY | 2022-07-11 01:15 | XMS_ITS | Encounter Summary ---
:1945 Author Organization [facility] Address [address] [place] [address] Care Team Providers Name Role Phone Unavailable Primary Care Provider Unavailable Reason for Visit Reason Onset Date Comments Reschedule 09/08/2018 Automatic Appointmen t Reminder Encounter Details Date Type Department Care Team Description 09/08/2018 Clinical Communication Division of Jenny Cameron Hematology in Rika Smith M.D. (Automatic [place], [address] Appointment [place], [place] Reminder) [address] [facility] [address] [place], [place] [phone] (Work) [phone] Social History Tobacco Use Types Packs/Day Years [...] update and reschedule as appropriate. Thank you. AGENT documented in this encounter Plan of Treatment Not on filedocumented as of this encounter Visit Diagnoses Not on filedocumented in this encounter
--- OUTSIDE RECORDS SUMMARY | 2022-07-11 01:15 | XMS_ITS | Encounter Summary ---
:1945 Author Organization [facility] Address [address] [place] [address] Care Team Providers Name Role Phone Unavailable Primary Care Provider Unavailable Encounter Details Date Type Department Care Team Description 03/31/2020 Clinical Communication Division of Kevin Ricks , Hematology in Arturo Mckeon M.D. [place], [place] [address] [place] [address] [address] [place] [address] [phone] Social History Tobacco Use Types Packs/Day Years [...] the highest level of school Associate degree: [employer] program 03/01/2019 you have completed or the highest degree you have received? Sex Assigned at Date Recorded Female 03/05/2018 7:34 PM CDT documented as of this encounter Plan of Treatment Not on filedocumented as of this encounter Visit Diagnoses Not on filedocumented in this encounter
--- OUTSIDE RECORDS SUMMARY | 2022-07-11 01:15 | XMS_ITS | Encounter Summary ---
:1945 Author Organization [facility] Address [address] [place] [address] Care Team Providers Name Role Phone Unavailable Primary Care Provider Unavailable Reason for Visit Reason Comments Lab work question Encounter Details Date Type Department Care Team Description 09/04/2020 Clinical Division of J[facility] Lab work questi on Communication Hematology in Arturo Ricks [place], M.D. [place] [address] [place] [address] [address] [place] [phone] Social History Tobacco Use Types Packs/Day Years [...] More than 4 times per year 04/09/2022 worship services? Do you belong to any clubs [...] to sleep or slept in a senior care (including now)? Education Answer Date Recorded What [...] to fast for labs. Patient verbalized understanding. PS ENGINEER Telephone Encounter - Mary Majano - 09/04/2020 10:08 AM CST Patient called. She is wondering if she will need to fast for her lab kit collection. Please reach her at: [phone] Thank you, Mary PS ENGINEER documented in this encounter Plan of Treatment Not on filedocumented as of this encounter Visit Diagnoses Not on filedocumented in this encounter
--- OUTSIDE RECORDS SUMMARY | 2022-07-11 01:15 | XMS_ITS | Encounter Summary ---
:1945 Author Organization [facility] Address [address] [place] [address] Care Team Providers Name Role Phone Unavailable Primary Care Provider Unavailable Reason for Visit Outpatient (Routine) - Closed Specialty Diagnoses / Procedures Referred By Referred To Contact Contact Hematology Oncology Diagnoses Wal[facility]strom's Macroglobulinemia (HCC) Rika Cameron M.D. [address] [place] [address] Referral ID Status Reason Start Date Expiration Date Visits Requ ested Visits Authorized [id number] Closed 09/11/2018 09/11/2019 1 1 Encounter Details Date Type Department Care Team Description 03/05/2019 Office Visit Division of Rika Cameron M.D. [address] [place] [phone] [facility] Hematology in [place] M.D. Macroglobulinemia (HCC) [facility] (Primary Dx) [place] [address] [place] [phone] Social History Tobacco Use Types Packs/Day Years [...] the highest level of school Associate degree: [employer] program 03/01/2019 you have completed or the [...] CBC done with her local provider in [place] in about 6 months and return to [facility] in about a year to see me. For additional details, please see associated progress note. Rika Cameron M.D. documented in this encounter Plan of Treatment Not on filedocumented as of this encounter Visit Diagnoses Diagnosis Waldenstrom's Macroglobulinemia (HCC) - Primary documented in this encounter
--- OUTSIDE RECORDS SUMMARY | 2022-07-11 01:15 | XMS_ITS | Encounter Summary ---
:1945 Author Organization [facility] Address [address] [place] [address] Care Team Providers Name Role Phone Unavailable Primary Care Provider Unavailable Reason for Referral Outpatient (Routine) - Closed Specialty Diagnoses / Procedures Referred By Contact Refer red To Contact Arturo Aleman M.D. [address] [phone] Referral ID Status Reason Start Date Expiration Date Visits Requ ested Visits Authorized [id number] Closed 04/04/2020 04/04/2021 1 1 Reason for Visit Outpatient (Routine) - Closed Specialty Diagnoses / Procedures Referred By Contact Refer red To Contact Hematology Oncology Rika Cameron [place] M.D. [address] [place] [phone] Referral ID Status Reason Start Date Expiration Date Visits Requ ested Visits Authorized [id number] Closed 10/02/2019 10/01/2020 1 1 Encounter Details Date Type Department Care Team Description 04/04/2020 Office Visit Division of Annieastrisha [facility] Hematology in Arturo Ricks Macroglperez linechristi (HCC) [facility] (Primary Dx) [address] [place] [phone] Social History Tobacco Use Types Packs/Day [...] or relatives? How often do you attend mu-ism or More than 4 times per year 04/09/2022 jehovah's witness services? Do you belong to any clubs or Yes 04/09/2022 organizations such as mu-ism groups, unions, fraternal or athletic groups, or [...] 1. 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 [id number]: Treated with rituximab, intermittently, totaling 10 different [...]
--- OUTSIDE RECORDS SUMMARY | 2022-07-11 01:15 | XMS_ITS | Encounter Summary ---
:1945 Author Organization [facility] Address [address] [place] [address] Care Team Providers Name Role Phone Unavailable Primary Care Provider Unavailable Reason for Visit Reason Comments Outside labs Encounter Details Date Type Department Care Team Description 04/03/2020 Clinical Communication Division of Rika Cameron labs Hematology in [place], [place] [address] [place] [address] [address] [place] [phone] Social History Tobacco Use Types Packs/Day Years [...] More than 4 times per year 04/09/2022 restorationism services? Do you belong to any clubs [...] Creatinine 0.4 mg/dL Comment: GFR 109 EXT [place]/Lambda-Free Light Chain Ratio 3.70 EXT 25-Hydroxy D [...]
--- OUTSIDE RECORDS SUMMARY | 2022-07-11 01:15 | XMS_ITS | Encounter Summary ---
:1945 Author Organization [facility] Address [address] [place] [address] Care Team Providers Name Role Phone Unavailable Primary Care Provider Unavailable Encounter Details Date Type Department Care Team Description 08/28/2020 Hospital Encounter Department of [facility] Laboratory Medicine Macroglo bulinemia (HCC) and Pathology, [facility] in [place], [place] [address] [place] [address] Social History Tobacco Use Types Packs/Day Years [...] highest level of school Associate degree: gerardo talbetr, 04/02/2020 you have completed or the highest technical, or vocational shakira best degree you have received? Sex Assigned at [...] daily. 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 M-SPIKE FOLLOW-UP, S Routine 09/09/2020 1:25 [facility] Res ults for PM GLOST TILE SHADER Macroglobulinemia (HCC) this procedure are in the results section. IMMUNOGLOBULIN FREE Routine 09/09/2020 1:25 [facility] Resu lts for LIGHT CHAINS, S PM GLOST TILE SHADER Macroglobulinemia (HCC) t his procedure are in the results section. IMMUNOGLOBULINS (IGG, Routine 09/09/2020 1:25 [facility] Re sults for IGA, AND IGM), S PM GLOST TILE SHADER Macroglobulinemia (HCC) this procedure are in the results section. ASPARTATE Routine 09/09/2020 1:25 [facility] Results for AMINOTRANSFERASE (AST), PM GLOST TILE SHADER Macroglobulinemia (HCC) this procedure S/P are in the results section. SODIUM, S/P Routine 09/09/2020 1:25 [facility] Results for PM GLOST TILE SHADER Macroglobulinemia (HCC) this procedure are in the results section. POTASSIUM, S/P Routine 09/09/2020 1:25 [facility] Results f or PM GLOST TILE SHADER Macroglobulinemia (HCC) this procedure are in the results section. ALKALINE PHOSPHATASE, Routine 09/09/2020 1:25 [facility] Re sults for S/P PM GLOST TILE SHADER Macroglobulinemia (HCC) this procedure are in the results section. CREATININE WITH EGFR, Routine 09/09/2020 1:25 [facility] Re sults for S/P PM GLOST TILE SHADER Macroglobulinemia (HCC) this procedure are in the results section. CALCIUM, TOT, S/P Routine 09/09/2020 1:25 [facility] Result s for PM GLOST TILE SHADER Macroglobulinemia (HCC) this procedure are in the results section. documented in this encounter Results Sodium (09/09/2020 1:25 PM GLOST TILE SHADER) athologist Signature Sodium, S 135 135 - 145 09/10/2020 9:46 DTL mmol/L AM GLOST TILE SHADER Specimen Anatomical Collection Method Collection Time Receive d Time (Source) Location / / Volume Laterality Blood (Blood, 09/09/2020 1:25 PM 09/10/19 8:37 Venous) GLOST TILE SHADER AM GLOST TILE SHADER Resulting Agency Comment Mailed In Specimen Arturo Ricks M.D. LAB BLOOD ADD-ON Performing Organization Address City/State/ZIP [facility] Phon e Number [facility] - [address] [place] [address] (ABNORMAL) Potassium (09/09/2020 1:25 PM GLOST TILE SHADER) P athologist Signature Potassium, S 3.5 (L) 3.6 - 5.2 09/10/2020 DTL mmol/L 9:46 AM GLOST TILE SHADER Specimen Anatomical Collection Method Collection Time Receive d Time (Source) Location / / Volume Laterality Blood (Blood, 09/09/2020 1:25 PM 09/10/19 8:37 Venous) GLOST TILE SHADER AM GLOST TILE SHADER Resulting Agency Comment Mailed In Specimen Arturo Ricks M.D. LAB BLOOD ADD-ON Performing Organization Address [facility] Phon e Number [facility] - [address] (ABNORMAL) M-Alok Follow-Up (09/09/2020 1:25 PM GLOST TILE SHADER) Patholo gist Method Time Signature Total Protein, 6.6 6.3 - 7.9 09/10/2020 [facility]SC S g/dL 12:28 PM GLOST TILE SHADER Albumin 3.4 3.4 - 4.7 09/10/2020 [facility] g/dL 4:10 PM GLOST TILE SHADER Alpha-1 0.3 0.1 - 0.3 09/10/2020 [facility] Globulin g/dL 4:10 PM GLOST TILE SHADER Alpha-2 1.1 (H) 0.6 - 1.0 09/10/2020 [facility] Globulin g/dL 4:10 PM GLOST TILE SHADER Beta-Globulin 0.8 0.7 - 1.2 09/10/2020 [facility] g/dL 4:10 PM GLOST TILE SHADER Gamma-Globulin 1.0 0.6 - 1.6 09/10/2020 [facility] g/dL 4:10 PM GLOST TILE SHADER A/G Ratio 1.05 09/10/2020 [facility]SC 4:10 PM GLOST TILE SHADER M spike 0.8 (H) g/dL 09/10/2020 [facility] 4:10 PM GLOST TILE SHADER Impression M-spike in 09/10/2020 [facility] gamma 4:10 PM GLOST TILE SHADER fraction. Specimen Anatomical Collection Method Collection Time Receive d Time (Source) Location / / Volume Laterality Blood (Blood, 09/09/2020 1:25 PM 09/10/19 Venous) GLOST TILE SHADER 10:27 AM GLOST TILE SHADER Resulting Agency Comment Mailed In Specimen Arturo Ricks M.D. LAB BLOOD ADD-ON Performing Organization Address City/State/ZIP Code Phon e Number [facility] [address] [place] [phone] 05 SUPPORT CENTER [facility] [place] [address] Laboratory Medicine and Pathology [address] [place] [address] Dr. NATH (ABNORMAL) Immunoglobulin Free Light Chains (09/09/2020 1:25 PM GLOST TILE SHADER) athologist Signature [place] Free 1.89 0.3300 - 09/10/2020 SD[facility] Light Chain, S 1.94 mg/dL 5:20 PM GLOST TILE SHADER Lambda Free 0.6380 0.5700 - 09/10/2020 [facility] Light Chain, S 2.63 mg/dL 5:20 PM GLOST TILE SHADER [place]/Lambda 2.96 (H) 0.2600 - 09/10/2020 [facility] FLC Ratio 1.65 5:20 PM GLOST TILE SHADER Comment: Elevated free light chain ratios between [...] (Blood, 09/09/2020 1:25 PM 09/10/19 21 Venous) GLOST TILE SHADER 10:29 AM GLOST TILE SHADER Resulting Agency Comment Mailed In Specimen Arturo Ricks M.D. LAB BLOOD ADD-ON Performing Organization Address City/State/ZIP Code Phon e Number [facility] [address] [address] [place], [place] [address] [facility] [place] [address] Laboratory Medicine and Pathology [address] [place] [address] Dr. NATH (ABNORMAL) Immunoglobulins (IgG, IgA, and IgM) (09/09/2020 1:25 PM GLOST TILE SHADER) Patholo gist Method Time Signature Immunoglobulin A 19 (L) 61 - 356 09/10/2020 [facility]SC (IgA), S mg/dL 2:35 PM GLOST TILE SHADER Immunoglobulin M 1020 (H) 37 - 286 09/10/2020 [facility] (IgM), S mg/dL 2:18 PM GLOST TILE SHADER Immunoglobulin G 279 (L) 767 - 09/10/2020 [facility] (IgG), S 1590 1:35 PM GLOST TILE SHADER mg/dL Specimen Anatomical Collection Method Collection Time Receive d Time (Source) Location / / Volume Laterality Blood (Blood, 09/09/2020 1:25 PM 09/10/19 21 Venous) GLOST TILE SHADER 10:29 AM GLOST TILE SHADER Resulting Agency Comment Mailed In Specimen Arturo Ricks M.D. LAB BLOOD ADD-ON Performing Organization Address City/State/ZIP Code Phon e Number [facility] [address] [place], [place] [address] SU[facility] CENTER [facility] [place] [address] Laboratory Medicine and Pathology [address] [place] (ABNORMAL) Creatinine with Estimated GFR (09/09/2020 1:25 PM GLOST TILE SHADER) Analysis Performed At Patho logist Time Signature Creatinine 1.09 (H) 0.59 - 09/10/2020 DTL 1.04 mg/dL 9:46 AM GLOST TILE SHADER eGFR-Non 50 (L) >=60 09/10/2020 DTL Black/ mL/min/BSA 9:46 AM GLOST TILE SHADER Danish Comment: ----ADDITIONAL INFORMATION---- Estimated GFR calculated using the 2009 CKD_EPI creatinine equation. eGFR-Black/ 57 (L) >=60 mL/min/BSA 2020 9:46 AM GLOST TILE SHADER DTL Comment: ----ADDITIONAL INFORMATION---- Estimated GFR calculated using the 2009 CKD_EPI creatinine equation. Specimen Anatomical Collection Method Collection Time Receive d Time (Source) Location / / Volume Laterality Blood (Blood, 09/09/2020 1:25 PM 09/10/19 21 8:37 Venous) GLOST TILE SHADER AM GLOST TILE SHADER Resulting Agency Comment Mailed In Specimen Arturo Ricks M.D. LAB BLOOD ADD-ON Performing Organization Address City/State/ZIP Code Phon e Number [facility] [address] [place] [address] [facility] [place] [address] [facility] 200 [facility] (ABNORMAL) CBC no call back, reflex T/S HGB <8 (09/09/2020 1:25 PM GLOST TILE SHADER) [facility] Method Time Signature Hemoglobin 13.0 11.6 - 09/10/2020 DTL 15.0 g/dL 9:09 AM GLOST TILE SHADER Hematocrit 39.6 35.5 - 09/10/2020 DTL 44.9 % 9:09 AM GLOST TILE SHADER Erythrocytes 4.43 3.92 - 09/10/2020 DTL 5.13 9:09 AM GLOST TILE SHADER x10(12)/L MCV 89.4 78.2 - 09/10/2020 DTL 97.9 fL 9:09 AM GLOST TILE SHADER RBC Distrib Width 13.2 12.2 - 09/10/2020 DTL 16.1 % 9:09 AM GLOST TILE SHADER Platelet Count 248 157 - 371 09/10/2020 DTL x10(9)/L 9:09 AM GLOST TILE SHADER Leukocytes 3.9 3.4 - 9.6 09/10/2020 DTL x10(9)/L 9:09 AM GLOST TILE SHADER Neutrophils 2.82 1.56 - 09/10/2020 DTL 6.45 9:09 AM GLOST TILE SHADER x10(9)/L Lymphocytes 0.56 (L) 0.95 - 09/10/2020 DTL 3.07 9:09 AM GLOST TILE SHADER x10(9)/L Monocytes 0.34 0.26 - 09/10/2020 DTL 0.81 9:09 AM GLOST TILE SHADER x10(9)/L Eosinophils 0.16 0.03 - 09/10/2020 DTL 0.48 9:09 AM GLOST TILE SHADER x10(9)/L Basophils 0.03 0.01 - 09/10/2020 DTL 0.08 9:09 AM GLOST TILE SHADER x10(9)/L Specimen Anatomical Collection Method Collection Time Receive d Time (Source) Location / / Volume Laterality Blood (Blood, 09/09/2020 1:25 PM 09/10/19 8:37 Venous) GLOST TILE SHADER AM GLOST TILE SHADER Resulting Agency Comment Mailed In Specimen Arturo Ricks M.D. LAB BLOOD NON ADD-ON Performing Organization Address City/[facility]/ZIP [facility] Phon e Number [facility] - [address] [place], [place] [address] [place] [address] [address] [facility] Calcium, Total (09/09/2020 1:25 PM GLOST TILE SHADER) P athologist Signature Calcium, Total, 9.6 8.8 - 10.2 09/10/2020 DTL S mg/dL 9:46 AM GLOST TILE SHADER Specimen Anatomical Collection Method Collection Time Receive d Time (Source) Location / / Volume Laterality Blood (Blood, 09/09/2020 1:25 PM 09/10/19 8:37 Venous) GLOST TILE SHADER AM GLOST TILE SHADER Resulting Agency Comment Mailed In Specimen Arturo Ricks M.D. LAB BLOOD ADD-ON Performing Organization Address City/[facility] Phon e Number [facility] - [address] [place] [address] 200 [facility] AST (Aspartate Aminotransferase) (09/09/2020 1:25 PM GLOST TILE SHADER) [facility] gist Method Time Signature Aspartate 17 8 - 43 09/10/2020 DTL Aminotransferase U/L 9:46 AM GLOST TILE SHADER (AST), S Specimen Anatomical Collection Method Collection Time Receive d Time (Source) Location / / Volume Laterality Blood (Blood, 09/09/2020 1:25 PM 09/10/19 8:37 Venous) GLOST TILE SHADER AM GLOST TILE SHADER Resulting Agency Comment Mailed In Specimen Arturo Ricks M.D. LAB BLOOD ADD-ON Performing Organization Address City/[facility] Phon e Number [facility] - [address] [place], [place] [address] 200 [facility] Alkaline Phosphatase (09/09/2020 1:25 PM GLOST TILE SHADER) P athologist Signature Alkaline 65 35 - 104 09/10/2020 DTL Phosphatase, S U/L 9:46 AM GLOST TILE SHADER Specimen Anatomical Collection Method Collection Time Receive d Time (Source) Location / / Volume Laterality Blood (Blood, 09/09/2020 1:25 PM 09/10/19 21 8:37 Venous) GLOST TILE SHADER AM GLOST TILE SHADER Resulting Agency Comment Mailed In Specimen Arturo Ricks M.D. LAB BLOOD ADD-ON Performing Organization Address City/State/ZIP Code Phon e Number [facility] - [address] [place], [place] [address] [facility] [place] [address] [facility] [address] documented in this encounter Visit Diagnoses Diagnosis Waldenstrom's Macroglobulinemia (HCC) documented in this encounter
--- OUTSIDE RECORDS SUMMARY | 2022-07-11 01:15 | XMS_ITS | Encounter Summary ---
:1945 Author Organization [facility] Address [address] [place] [address] Care Team Providers Name Role Phone Unavailable Primary Care Provider Unavailable Encounter Details Date Type Department Care Team Description 09/11/2018 Hospital Department of Andrey Cameron's Encounter Laboratory Rika Smith M.D. Macroglobulinemia (HCC) Medicine and [address] [place] [address] [place] [address] [facility] [phone] [place] (Work) [address] [place] [address] [place], [place] (Fax) [phone] Social History Tobacco Use [...] or relatives? How often do you attend anglican or More than 4 times per year 04/09/2022 restoration services? Do you belong to any clubs or Yes 04/09/2022 organizations such as anglican groups, unions, fraternal or athletic groups, or [...] daily. 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) [employer] by [employer] TURMERIC ROOT EXTRACT Take 1 tablet by [...] Resu lts for AND ISOTYPE, S AM MANAGEMENT SUPERVISOR this procedur e are in the results section. 25-HYDROXYVITAMIN D2 Routine 09/11/2018 7:04 Waldenstrom's Res ults for AND D3, S AM MANAGEMENT SUPERVISOR Macroglobulinemia (HCC) this procedure are in the results section. CBC WITH DIFFERENTIAL, Routine 09/11/2018 7:04 Waldenstrom's R esults for B AM MANAGEMENT SUPERVISOR Macroglobulinemia (HCC) this procedure are in the results section. ASPARTATE Routine 09/11/2018 7:04 Waldenstrom's Results for AMINOTRANSFERASE (AST), AM MANAGEMENT SUPERVISOR Macroglobulinemia (HCC) this procedure S/P are in the results section. ALKALINE PHOSPHATASE, Routine 09/11/2018 7:04 Waldenstrom's Re sults for S/P AM MANAGEMENT SUPERVISOR Macroglobulinemia (HCC) this procedure are in the results section. GLUCOSE, FASTING, S/P Routine 09/11/2018 7:04 Waldenstrom's Re sults for AM MANAGEMENT SUPERVISOR Macroglobulinemia (HCC) this procedure are in the results section. IMMUNOGLOBULIN M (IGM), Routine 09/11/2018 7:04 Waldenstrom's Results for S AM MANAGEMENT SUPERVISOR Macroglobulinemia (HCC) this procedure are in the results section. CREATININE WITH EGFR, Routine 09/11/2018 7:04 Waldenstrom's Re sults for S/P AM MANAGEMENT SUPERVISOR Macroglobulinemia (HCC) this procedure are in the results section. BILIRUBIN, TOT, S/P Routine 09/11/2018 7:04 Waldenstrom's Resu lts for AM MANAGEMENT SUPERVISOR Macroglobulinemia (HCC) this procedure are in the results section. documented in this encounter Results Prot Electrophoresis and Isotype (09/11/2018 7:04 AM MANAGEMENT SUPERVISOR) Component Value Ref Test Analysis Performed At [facility] gist Range Method Time Signature Total 7.1 6.3 - 09/11/2018 [facility] Protein, S 7.9 g/dL 9:12 AM [facility] - [facility] Albumin 3.6 3.4 - 09/11/2018 [facility] 4.7 g/dL 3:07 PM [facility] - [facility] Alpha-1 0.3 0.1 - 09/11/2018 [facility] Globulin 0.3 g/dL 3:07 PM [facility] - [facility] Alpha-2 1.0 0.6 - 09/11/2018 [facility] Globulin 1.0 g/dL 3:07 PM [facility] - [facility] Beta-Globulin 0.8 0.7 - 09/11/2018 [facility] 1.2 g/dL 3:07 PM [facility] - [facility] Gamma-Globuli 1.4 0.6 - 09/11/2018 [facility] n 1.6 g/dL 3:07 PM [facility] - [facility] A/G Ratio 1.02 09/11/2018 [facility] 3:07 PM [facility] M spike 1.2 g/dL 09/11/2018 [facility] 3:07 PM [facility] Impression M-spike in gamma fraction. 09/11/2018 M [facility] See Isotype. 3:07 PM [facility] - [facility] M-protein Monoclonal IgM 09/12/2018 [facility] Isotype kappa.D~Size of 3:30 PM LABORATORIES - [facility]-TOF MS monoclonal protein [facility] PERRYWill [facility] decreased [facility] since 04/26/2017.D~Sug st protein electrophoresis to follow patient rather than isotyping. Comment: ----ADDITIONAL INFORMATION---- The submitted sample was assayed by five separate immunopurifications for IgG, IgA, IgM, kappa and lambda. ??The r esult reflects the findings of either no monoclonal protein detected or those monoclonal immunoglobulins that were detected. This test was developed and its performa nce characteristics determined by [facility] in a manner consistent with CLIA requirements. This test has not been cleared or approved by the U.[place] d and Drug Administration. Specimen Anatomical Collection Method Collection Time Receive d Time (Source) Location / / Volume Laterality Blood 09/11/2018 7:04 AM 9 8:20 MANAGEMENT SUPERVISOR AM MANAGEMENT SUPERVISOR Rika Cameron M.D. LAB BLOOD ADD-ON Performing Organization Address City/State/ZIP Code Phon e Number [facility] LABORATORIES - [address] [place], [place] [address] [facility] 25-Hydroxyvitamin D2 and D3 (09/11/2018 7:04 AM MANAGEMENT SUPERVISOR) P athologist Signature 25-Hydroxy D2 <4.0 ng/mL 09/12/2018 [facility] 3:17 PM MANAGEMENT SUPERVISOR [address] [facility] 25-Hydroxy D3 59 ng/mL 09/12/2018 [facility] 3:17 PM MANAGEMENT SUPERVISOR [address] [facility] 25-Hydroxy D 59 ng/mL 09/12/2018 [facility] Total 3:17 PM [facility] Comment: Interpretation: 51-80 ng/mL (increased r isk of hypercalciuria) ----REFERENCE VALUE---- 25-HYDROXY D TOTAL (D2+D3) Optimum level s in the healthy population are 20-50, patients with bone disease may benefit from higher levels within this r jean-pierre. ----ADDITIONAL INFORMATION---- This test was developed and its performa nce characteristics determined by [facility] in a manner consistent with CLIA requirements. This test has not been cleared or approved by the U.[place]. Jenn d and Drug Administration. Specimen Anatomical Collection Method Collection Time Receive d Time (Source) Location / / Volume Laterality Blood (Blood, 09/11/2018 7:04 AM 09/11/19 19 Venous) MANAGEMENT SUPERVISOR 10:31 AM MANAGEMENT SUPERVISOR Rika Cameron M.D. LAB BLOOD ADD-ON Performing Organization Address City/[facility]/ZIP [facility] Phon e Number [facility] [address] [place] [address] [facility] (ABNORMAL) Immunoglobulin M (IgM) (09/11/2018 7:04 AM MANAGEMENT SUPERVISOR) Patholo gist Method Time Signature Immunoglobulin M 1490 (H) 37 - 286 09/11/2018 [facility] (IgM), S mg/dL 11:47 AM [facility] - [facility] Specimen Anatomical Collection Method Collection Time Receive d Time (Source) Location / / Volume Laterality Blood (Blood, 09/11/2018 7:04 AM 09/11/19 8:20 Venous) MANAGEMENT SUPERVISOR AM MANAGEMENT SUPERVISOR Rika Cameron M.D. LAB BLOOD ADD-ON Performing Organization Address City/[facility]/ZIP [facility] Phon e Number [facility] LABORATORIES - [address] [place] [address] [facility] Glucose, Fasting (09/11/2018 7:04 AM MANAGEMENT SUPERVISOR) P athologist Signature Glucose, P 95 70 - 100 09/11/2018 [facility] mg/dL 8:03 AM MANAGEMENT SUPERVISOR LABORATORIES [facility] Last Intake 13 hr 09/11/2018 [facility] 7:26 AM MANAGEMENT SUPERVISOR LABORATORIES [facility] Specimen Anatomical Collection Method Collection Time Receive d Time (Source) Location / / Volume Laterality Blood (Blood, 09/11/2018 7:04 AM 09/11/19 7:26 Venous) MANAGEMENT SUPERVISOR AM MANAGEMENT SUPERVISOR Rika Cameron M.D. LAB BLOOD NON ADD-ON Performing Organization Address City/[facility] Code Phon e Number [facility] LABORATORIES - [address] [place] [address] [facility] Creatinine with Estimated GFR (09/11/2018 7:04 AM MANAGEMENT SUPERVISOR) Analysis Performed At [facility] logist Time Signature Creatinine 0.72 0.59 - 09/11/2018 [facility] 1.04 mg/dL 8:09 AM MANAGEMENT SUPERVISOR LABORATORIES - [facility] eGFR-Non 83 >=60 09/11/2018 [facility] Black/ mL/min/BSA 8:09 AM MANAGEMENT SUPERVISOR LABORATORIES - [facility] Comment: ----ADDITIONAL INFORMATION---- Estimated GFR calculated using the 2009 CKD_EPI creatinine equation. eGFR-Black/ >90 >=60 mL/min/BSA 09/11/2018 8:09 [facility] [place] AM MANAGEMENT SUPERVISOR LABORATORIES - [facility] Comment: ----ADDITIONAL INFORMATION---- Estimated GFR calculated using the 2009 CKD_EPI creatinine equation. Specimen Anatomical Collection Method Collection Time Receive d Time (Source) Location / / Volume Laterality Blood (Blood, 09/11/2018 7:04 AM 09/11/19 19 7:25 Venous) MANAGEMENT SUPERVISOR AM MANAGEMENT SUPERVISOR Rika Cameron M.D. LAB BLOOD ADD-ON Performing Organization Address City/[facility] Code Phon e Number [facility] LABORATORIES - [address] [place] [address] [facility] (ABNORMAL) CBC with Differential (09/11/2018 7:04 AM MANAGEMENT SUPERVISOR) [facility] gist Method Time Signature Hemoglobin 13.3 11.6 - 09/11/2018 [facility] 15.0 g/dL 7:30 AM MANAGEMENT SUPERVISOR LABORATORIES - [facility] Hematocrit 38.9 35.5 - 09/11/2018 [facility] 44.9 % 7:30 AM MANAGEMENT SUPERVISOR LABORATORIES - [facility] Erythrocytes 4.38 3.92 - 09/11/2018 [facility] 5.13 7:30 AM MANAGEMENT SUPERVISOR LABORATORIES - x10(12)/L [facility] MCV 88.8 78.2 - 09/11/2018 [facility] 97.9 fL 7:30 AM MANAGEMENT SUPERVISOR LABORATORIES [facility] RBC Distrib 13.4 12.2 - 09/11/2018 [facility] Width 16.1 % 7:30 AM MANAGEMENT SUPERVISOR LABORATORIES - [facility] Platelet Count 194 157 - 371 09/11/2018 [facility] x10(9)/L 7:30 AM MANAGEMENT SUPERVISOR LABORATORIES - [facility] Leukocytes 2.8 (L) 3.4 - 9.6 09/11/2018 [facility] x10(9)/L 7:30 AM MANAGEMENT SUPERVISOR LABORATORIES - [facility] Neutrophils 1.96 1.56 - 09/11/2018 [facility] 6.45 7:30 AM MANAGEMENT SUPERVISOR LABORATORIES - x10(9)/L [facility] Lymphocytes 0.29 (L) 0.95 - 09/11/2018 [facility] 3.07 7:30 AM MANAGEMENT SUPERVISOR LABORATORIES - x10(9)/L [facility] Monocytes 0.26 0.26 - 09/11/2018 [facility] 0.81 7:30 AM MANAGEMENT SUPERVISOR LABORATORIES - x10(9)/L [facility] Eosinophils 0.24 0.03 - 09/11/2018 [facility] 0.48 7:30 AM MANAGEMENT SUPERVISOR LABORATORIES - x10(9)/L [facility] Basophils <0.03 0.01 - 09/11/2018 [facility] 0.08 7:30 AM MANAGEMENT SUPERVISOR LABORATORIES - x10(9)/L [facility] Specimen Anatomical Collection Method Collection Time Receive d Time (Source) Location / / Volume Laterality Blood (Blood, 09/11/2018 7:04 AM 09/11/19 19 7:26 Venous) MANAGEMENT SUPERVISOR AM MANAGEMENT SUPERVISOR Rika Cameron M.D. LAB BLOOD ADD-ON Performing Organization Address [facility] Code Phon e Number [facility] LABORATORIES - [address] [place] [address] [facility] Bilirubin, Total (09/11/2018 7:04 AM MANAGEMENT SUPERVISOR) P athologist Signature Bilirubin, 0.7 <=1.2 09/11/2018 [facility] Total, S mg/dL 8:09 AM MANAGEMENT SUPERVISOR LABORATORIES - [facility] Specimen Anatomical Collection Method Collection Time Receive d Time (Source) Location / / Volume Laterality Blood (Blood, 09/11/2018 7:04 AM 09/11/19 19 7:25 Venous) MANAGEMENT SUPERVISOR AM MANAGEMENT SUPERVISOR Rika Cameron M.D. LAB BLOOD ADD-ON Performing Organization Address City/[facility] Phon e Number [facility] LABORATORIES - [address] [place] [address] [facility] AST (Aspartate Aminotransferase) (09/11/2018 7:04 AM MANAGEMENT SUPERVISOR) Patholo gist Method Time Signature Aspartate 15 8 - 43 09/11/2018 [facility] Aminotransferase U/L 8:09 AM MANAGEMENT SUPERVISOR LABORATORIE S - (AST), S [facility] Specimen Anatomical Collection Method Collection Time Receive d Time (Source) Location / / Volume Laterality Blood (Blood, 09/11/2018 7:04 AM 09/11/19 19 7:25 Venous) MANAGEMENT SUPERVISOR AM MANAGEMENT SUPERVISOR Rika Cameron M.D. LAB BLOOD ADD-ON Performing Organization Address City/State/[facility] Phon e Number [facility] LABORATORIES - [address] [place] [address] [facility] Alkaline Phosphatase (09/11/2018 7:04 AM MANAGEMENT SUPERVISOR) P athologist Signature Alkaline 62 35 - 104 09/11/2018 [facility] Phosphatase, S U/L 9:24 AM MANAGEMENT SUPERVISOR LABORATORIES - [facility] Specimen Anatomical Collection Method Collection Time Receive d Time (Source) Location / / Volume Laterality Blood (Blood, 09/11/2018 7:04 AM 09/11/19 19 7:25 Venous) MANAGEMENT SUPERVISOR AM MANAGEMENT SUPERVISOR Rika Cameron M.D. LAB BLOOD ADD-ON Performing Organization Address City/[facility]/ZIP Code Phon e Number [facility] LABORATORIES - [address] documented in this encounter Visit Diagnoses Diagnosis Waldenstrom's Macroglobulinemia (HCC) documented in this encounter
--- OUTSIDE RECORDS SUMMARY | 2022-07-11 01:15 | XMS_ITS | Encounter Summary ---
:1945 Author Organization [facility] Address [address] [place] [address] Care Team Providers Name Role Phone Unavailable Primary Care Provider Unavailable Reason for Visit Reason Comments Intake Assessment Encounter Details Date Type Department Care Team Description 09/29/2020 [facility] Communication Hematology in Arturo Ricks [place], M.D. [place] [address] [facility] [address] [place] [phone] Social History Tobacco Use Types Packs/Day Years [...] or relatives? How often do you attend jehovah's witness or More than 4 times per year 04/09/2022 congregational services? Do you belong to any clubs or Yes 04/09/2022 organizations such as jehovah's witness groups, unions, fraternal or athletic groups, or [...] 09/29/2020 2:58 PM CST Intake completed 09/29 CTOR OF HEMOPHILIA documented in this encounter Plan of Treatment Not on filedocumented as of this encounter Visit Diagnoses Not on filedocumented in this encounter
--- OUTSIDE RECORDS SUMMARY | 2022-07-11 01:15 | XMS_ITS | Encounter Summary ---
:1945 Author Organization [facility] Address [address] [place] [address] Care Team Providers Name Role Phone Unavailable Primary Care Provider Unavailable Encounter Details Date Type Department Care Team Description 03/05/2019 Hospital Department of Andrey Cameron's Encounter Laboratory Rika Smith M.D. Macroglobulinemia (HCC) Medicine and [address] [place] [address] [place] [address] [facility] [phone] [place] (Work) [address] [place] [address] [place], [place] (Fax) [phone] Social History Tobacco Use [...] slept in a nursing home (including now)? Education Answer Date Recorded What is the highest level of school Associate degree: EQ works program 03/01/2019 you have completed or the [...] daily. 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) [employer] TURMERIC ROOT EXTRACT Take 1 tablet by [...] Immunoglobulin M (IgM) (03/05/2019 9:18 AM CDT) [facility] Method Time Signature Immunoglobulin M 1310 (H) [...] EMERGENC[address] [place] [address] [facility] Sodium (03/05/2019 9:18 AM CDT) athologist Signature Sodium, S 136 135 - 145 03/05/2019 mmol/L 10:21 AM CDT Specimen Anatomical Collection Method Collection Time Receive d Time (Source) Location / / Volume Laterality Blood (Blood, 03/05/2019 9:18 AM 03/05/20 19 9:39 Venous) CDT AM CDT Rika Cameron M.D. LAB BLOOD ADD-ON Performing Organization Address City/[facility]/ZIP Code Phon e Number [facility] - [address] [place] [address] [facility] Potassium (03/05/2019 9:18 AM CDT) athologist Signature Potassium, S 3.9 3.6 - 5.2 03/05/2019 mmol/L 10:21 AM CDT Specimen Anatomical Collection Method Collection Time Receive d Time (Source) Location / / Volume Laterality Blood (Blood, 03/05/2019 9:18 AM 03/05/20 19 9:39 Venous) CDT AM CDT Rika Cameron M.D. LAB BLOOD ADD-ON Performing Organization Address City/[facility] Phon e Number [facility] - [address] [place] [address] [facility] (ABNORMAL) Monoclonal Gammopathy Screen (03/05/2019 9:18 AM CDT) Component Value Ref Test Analysis Performed At [facility] gist Range Method Time Signature Total 6.5 6.3 - 03/05/2019 Protein, S 7.9 g/dL 2:44 PM CDT [place] Free 2.25 (H) 0.3300 - 03/05/2019 Light Chain, 1.94 7:08 PM CDT S mg/dL Lambda Free 0.5970 0.5700 - 03/05/2019 Light Chain, 2.63 4:33 PM CDT S mg/dL [place]/Lambda 3.77 (H) 0.2600 - 03/05/2019 [facility] Ratio [...] and its performa nce characteristics determined by [facility] in a manner consistent with CLIA requirements. [...] EMERGENC[address] [place], [place] [address] [facility] Creatinine with Estimated GFR (03/05/2019 9:18 AM CDT) P athologist Signature Creatinine 0.64 0.59 - 03/05/2019 1.04 mg/dL 10:21 AM CDT eGFR-Non 88 >=60 03/05/2019 Black/ mL/min/BSA 10:21 AM CDT [place] Comment: ----ADDITIONAL INFORMATION---- Estimated GFR calculated using [...] [facility] - [address] [place], [place] [address] [facility] (ABNORMAL) CBC with Differential (03/05/2019 9:18 AM CDT) [facility] Method Time Signature Hemoglobin 12.4 11.6 - [...] M.D. LAB BLOOD ADD-ON Performing Organization Address City/[facility]/ZIP Code Phon e Number [facility] - [address] [place] [address] [facility] Bilirubin, Total (03/05/2019 9:18 AM CDT) P athologist Signature Bilirubin, 0.5 <=1.2 mg/dL 03/05/2019 Total, S 10:21 AM CDT Specimen Anatomical Collection Method Collection Time Receive d Time (Source) Location / / Volume Laterality Blood (Blood, 03/05/2019 9:18 AM 03/05/20 9:39 Venous) CDT AM CDT Rika Cameron M.D. LAB BLOOD ADD-ON Performing Organization Address City/[facility]/ZIP Code Phon e Number [facility] - [address] [place] [address] [facility] AST (Aspartate Aminotransferase) (03/05/2019 9:18 AM CDT) [facility] Signature Aspartate 16 8 - 43 03/05/2019 Aminotransferase U/L 10:21 AM CDT (AST), S Specimen Anatomical Collection Method Collection Time Receive d Time (Source) Location / / Volume Laterality Blood (Blood, 03/05/2019 9:18 AM 03/05/20 19 9:39 Venous) CDT AM CDT Rika Cameron M.D. LAB BLOOD ADD-ON Performing Organization Address City/[facility]/ZIP Code Phon e Number [facility] - [address] [place] [address] [facility] Alkaline Phosphatase (03/05/2019 9:18 AM CDT) P [...] [facility] - [address] [place] [address] [facility] documented in this encounter Visit Diagnoses Diagnosis Waldenstrom's Macroglobulinemia (HCC) documented in this encounter
--- OUTSIDE RECORDS SUMMARY | 2022-07-11 01:15 | XMS_ITS | Encounter Summary ---
:1945 Author Organization [facility] Address [address] [place] [address] Care Team Providers Name Role Phone Unavailable Primary Care Provider Unavailable Encounter Details Date Type Department Care Team Description 07/04/2018 Clinical Communication Division of Hematology Rika Cameron in Sarah Castillo M.D. [address] [place] [phone] [phone] Social History Tobacco Use Types Packs/Day Years [...] or relatives? How often do you attend muslim or More than 4 times per year 04/09/2022 holiness services? Do you belong to any clubs or Yes 04/09/2022 organizations such as muslim groups, unions, fraternal or athletic groups, or [...] Rika Cameron M.D. - 07/04/2018 3:01 PM CUTTING SUPERVISOR That would be fine, thanks ING SUPERVISOR documented in this encounter Plan of Treatment Not on filedocumented as of this encounter Visit Diagnoses Not on filedocumented in this encounter
--- OUTSIDE RECORDS SUMMARY | 2022-07-11 01:15 | XMS_ITS | Encounter Summary ---
:1945 Author Organization [facility] Address [address] [place] [address] Care Team Providers Name Role Phone Unavailable Primary Care Provider Unavailable Encounter Details Date Type Department Care Team Description 08/28/2020 Hospital Encounter Department of [facility] Laboratory Medicine Macroglo bulinemia (HCC) and Pathology, [facility] in [place], [place] [address] [place] [address] Social History Tobacco Use Types Packs/Day Years [...] More than 4 times per year 04/09/2022 oriental orthodox services? Do you belong to any [...] daily. 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) [employer] by [employer] TURMERIC ROOT EXTRACT Take 1 tablet by [...] for this PROTEIN, 24 HR, U AM [facility] Macroglobulinemia (HCC) procedure are in the results section. documented in this encounter Results Electrophoresis, Protein, 24 Hour, Urine (09/09/2020 7:00 AM BOTTOM TURNER) P athologist Signature Total Protein, <142 <229 mg/24 09/10/2020 ED 24 HR, U h 9:12 AM B[facility] TURNER Comment: ----ADDITIONAL INFORMATION---- On 02/15/2017 the total protein assay me thod changed resulting in approximately a 15% increase in prote in values. Collection Duration 24 h 09/10/2020 7:[address] ED Urine Volume 3550 mL 09/10/2020 7:22 AM [facility] ED Concentration <4 mg/dL 09/10/2020 9:12 AM [facility] T[facility] SCOTT A Albumin, % 100 % 09/11/2020 4:23 PM [facility] SDSC Impression Albumin is the only protein 09/11/2020 4:23 PM [facility] SDSC detected. Specimen Anatomical Collection Method Collection Time Receive d Time (Source) Location / / Volume Laterality Urine (Urine, 24 09/09/2020 7:00 AM 09/10 7:21 Hours) [facility] AM [facility] Resulting Agency Comment Mailed In Specimen Arturo Ricks M.D. LAB URINE ORDERABLES Performing Organization Address City/State/ZIP Code Phon e Number [facility] [address] [place], [place] [address] [place] [address] Laboratories-[facility] [address] [facility] [place] [address] Laboratory Medicine and Pathology [address] [place] documented in this encounter Visit Diagnoses Diagnosis Waldenstrom's Macroglobulinemia (HCC) documented in this encounter
--- OUTSIDE RECORDS SUMMARY | 2022-07-11 01:16 | XMS_ITS | Encounter Summary ---
:1945 Author Organization [facility] Address [address] [place] [address] Care Team Providers Name Role Phone Elsewhere, Pcp Primary Care Provider Unavailable Encounter Details Date Type Department Care Team Description 11/14/2014 Historical Ophthalmology RST OPH rAron Patricio M.D. [address] [place], [place] [phone] (Wo rk) Social History [...] or relatives? How often do you attend advent or More than 4 times per year 04/09/2022 restoration services? Do you belong to any clubs or Yes 04/09/2022 organizations such as advent groups, unions, fraternal or athletic groups, or [...] left eye. CD Reports - EYEGEN Id: [id number] Status: Fnl documented in this encounter Plan of Treatment Not on filedocumented as of this encounter Visit Diagnoses Not on filedocumented in this encounter Care Teams Skill Training Program Coordinator Relationship Specialty Start Date End Date Elsewhere, Pcp PCP - General Family Medicine 03/04/21 documented as of this encounter
--- OUTSIDE RECORDS SUMMARY | 2022-07-11 01:16 | XMS_ITS | Encounter Summary ---
:1945 Author Organization [facility] Address [address] [place] [address] Care Team Providers Name Role Phone Unavailable [...] More than 4 times per year 04/09/2022 baptism services? Do you belong to any clubs [...]
--- OUTSIDE RECORDS SUMMARY | 2022-07-11 01:16 | XMS_ITS | Encounter Summary ---
:1945 Author Organization [facility] Address [address] [place] [address] Care Team Providers Name Role Phone Unavailable [...] or slept in a jail (including now)? Sex Assigned at Date Recorded [...]
--- OUTSIDE RECORDS SUMMARY | 2022-07-11 01:16 | XMS_ITS | Encounter Summary ---
:1945 Author Organization [facility] Address [address] [place] [address] Care Team Providers Name Role Phone Elsewhere, Pcp Primary Care Provider Unavailable Encounter Details Date Type Department Care Team Description 01/10/2013 Historical Ophthalmology RST OPH Arron Patricio M.D. [address] [place], [place] [phone] (Wo rk) Social History [...] both eyes CDM Reports - EYEGEN Id: [id number] Status: Fnl documented in this encounter Plan of Treatment Not on filedocumented as of this encounter Visit Diagnoses Not on filedocumented in this encounter Care Teams Solar Project Engineer Relationship Specialty Start Date End Date Elsewhere, Pcp PCP - General Family Medicine 03/04/21 documented as of this encounter
--- OUTSIDE RECORDS SUMMARY | 2022-07-11 01:16 | XMS_ITS | Encounter Summary ---
:1945 Author Organization [facility] Address [address] [place] [address] Care Team Providers Name Role Phone Unavailable Primary Care Provider Unavailable Reason for Referral Outpatient (Routine) - Closed Specialty Diagnoses / Procedures Referred By Contact Refer red To Contact Hematology Oncology Rika Cameron [place] M.D. [address] [place] [address] Referral ID Status Reason Start Date Expiration Date Visits Requ ested Visits Authorized [id number] Closed 03/09/2018 03/09/2019 1 1 Reason for Visit Outpatient (Routine) - Closed Specialty Diagnoses / Procedures Referred By Referred To Contact Contact Hematology Oncology Diagnoses Waldenstrom's Macroglobulinemia (HCC) Rika Cameron M.D. [address] [place] [address] Referral ID Status Reason Start Date Expiration Date Visits Requ ested Visits Authorized [id number] Closed 12/09/2017 06/07/2018 1 1 Encounter Details Date Type Department Care Team Description 03/09/2018 Office Visit Division of Sumit Cameron (Primar y Dx); Hematology in Rika Smith M.D. Waldenstrom's Macroglobulinemia (HCC) [place], [place] [address] [facility] [address] [place] [phone] Social History Tobacco Use Types Packs/Day Years [...] alternating spending nights with the patient elderly [id number], which may contribute to her fatigue. Otherwise, [...] the option of seeing his colleague in [place], [place] which would be closer her home. She also states that she had breast tomosynthesis done in [place]. There was a slight abnormalitynoted in the [...] 25-Hydroxyvitamin D2 and D3 (09/11/2018 7:04 AM RADIATION PROTECTION TECHNICIAN) P athologist Signature 25-Hydroxy D2 <4.0 ng/mL 09/12/2018 [facility] 3:17 PM RADIATION PROTECTION TECHNICIAN [address] [facility] 25-Hydroxy D3 59 ng/mL 09/12/2018 [facility] 3:17 PM RADIATION PROTECTION TECHNICIAN [address] [facility] 25-Hydroxy D 59 ng/mL 09/12/2018 [facility] Total 3:17 PM RADIATION PROTECTION TECHNICIAN [address] [facility] Comment: Interpretation: 51-80 ng/mL (increased r isk of hypercalciuria) ----REFERENCE VALUE---- 25-HYDROXY D TOTAL (D2+D3) Optimum level s in the healthy population are 20-50, patients with bone disease may benefit from higher levels within this r jean-pierre. ----ADDITIONAL INFORMATION---- This test was developed and its performa nce characteristics determined by [facility] in a manner consistent with CLIA requirements. This test has not been cleared or approved by the [place] d and Drug Administration. Specimen Anatomical Collection Method Collection Time Receive d Time (Source) Location / / Volume Laterality Blood (Blood, 09/11/2018 7:04 AM 09/11/19 19 Venous) RADIATION PROTECTION TECHNICIAN 10:31 AM RADIATION PROTECTION TECHNICIAN Rika Cameron M.D. LAB BLOOD ADD-ON Performing Organization Address City/[facility]/ZIP Code Phon e Number [facility] [address] [place] [phone] [facility] (ABNORMAL) Immunoglobulin M (IgM) (09/11/2018 7:04 AM RADIATION PROTECTION TECHNICIAN) Patholo gist Method Time Signature Immunoglobulin M 1490 (H) 37 - 286 09/11/2018 [facility] (IgM), S mg/dL 11:47 AM LABORATORIES - [facility] Specimen Anatomical Collection Method Collection Time Receive d Time (Source) Location / / Volume Laterality Blood (Blood, 09/11/2018 7:04 AM 09/11/19 8:20 Venous) RADIATION PROTECTION TECHNICIAN AM RADIATION PROTECTION TECHNICIAN Rika Cameron M.D. LAB BLOOD ADD-ON Performing Organization Address City/[facility]/ZIP Code Phon e Number [facility] LABORATORIES - [address] [place] [address] [facility] Glucose, Fasting (09/11/2018 7:04 AM RADIATION PROTECTION TECHNICIAN) P athologist Signature Glucose, P 95 70 - 100 09/11/2018 [facility] mg/dL 8:03 AM RADIATION PROTECTION TECHNICIAN LABORATORIES - [facility] Last Intake 13 hr 09/11/2018 [facility] 7:26 AM RADIATION PROTECTION TECHNICIAN LABORATORIES - [facility] Specimen Anatomical Collection Method Collection Time Receive d Time (Source) Location / / Volume Laterality Blood (Blood, 09/11/2018 7:04 AM 09/11/19 7:26 Venous) RADIATION PROTECTION TECHNICIAN AM RADIATION PROTECTION TECHNICIAN Rika Cameron M.D. LAB BLOOD NON ADD-ON Performing Organization Address City/State/ZIP Code Phon e Number [facility] LABORATORIES - [address] [place] [address] [facility] Creatinine with Estimated GFR (09/11/2018 7:04 AM RADIATION PROTECTION TECHNICIAN) Analysis Performed At [facility] logist Time Signature Creatinine 0.72 0.59 - 09/11/2018 [facility] 1.04 mg/dL 8:09 AM RADIATION PROTECTION TECHNICIAN LABORATORIES [facility] eGFR-Non 83 >=60 09/11/2018 [facility] Black/ mL/min/BSA 8:09 AM RADIATION PROTECTION TECHNICIAN LABORATORIES - [facility] Comment: ----ADDITIONAL INFORMATION---- Estimated GFR calculated using the 2009 CKD_EPI creatinine equation. eGFR-Black/ >90 >=60 mL/min/BSA 09/11/2018 8:09 [facility] [place] RADIATION PROTECTION TECHNICIAN LABORATORIES [facility] Comment: ----ADDITIONAL INFORMATION---- Estimated GFR calculated using the 2009 CKD_EPI creatinine equation. Specimen Anatomical Collection Method Collection Time Receive d Time (Source) Location / / Volume Laterality Blood (Blood, 09/11/2018 7:04 AM 09/11/19 19 7:25 Venous) RADIATION PROTECTION TECHNICIAN AM RADIATION PROTECTION TECHNICIAN Rika Cameron M.D. LAB BLOOD ADD-ON Performing Organization Address City/State/[facility] Code Phon e Number [facility] LABORATORIES - [address] [place] [address] [facility] (ABNORMAL) CBC with Differential (09/11/2018 7:04 AM RADIATION PROTECTION TECHNICIAN) [facility] gist Method Time Signature Hemoglobin 13.3 11.6 - 09/11/2018 [facility] 15.0 g/dL 7:30 AM RADIATION PROTECTION TECHNICIAN LABORATORIES [facility] Hematocrit 38.9 35.5 - 09/11/2018 [facility] 44.9 % 7:30 AM RADIATION PROTECTION TECHNICIAN LABORATORIES [facility] Erythrocytes 4.38 3.92 - 09/11/2018 [facility] 5.13 7:30 AM RADIATION PROTECTION TECHNICIAN LABORATORIES - x10(12)/L [facility] MCV 88.8 78.2 - 09/11/2018 [facility] 97.9 fL 7:30 AM RADIATION PROTECTION TECHNICIAN LABORATORIES [facility] RBC Distrib 13.4 12.2 - 09/11/2018 [facility] Width 16.1 % 7:30 AM RADIATION PROTECTION TECHNICIAN LABORATORIES [facility] Platelet Count 194 157 - 371 09/11/2018 [facility] x10(9)/L 7:30 AM RADIATION PROTECTION TECHNICIAN LABORATORIES [facility] Leukocytes 2.8 (L) 3.4 - 9.6 09/11/2018 [facility] x10(9)/L 7:30 AM RADIATION PROTECTION TECHNICIAN LABORATORIES - [facility] Neutrophils 1.96 1.56 - 09/11/2018 [facility] 6.45 7:30 AM RADIATION PROTECTION TECHNICIAN LABORATORIES - x10(9)/L [facility] Lymphocytes 0.29 (L) 0.95 - 09/11/2018 [facility] 3.07 7:30 AM RADIATION PROTECTION TECHNICIAN LABORATORIES - x10(9)/L [facility] Monocytes 0.26 0.26 - 09/11/2018 [facility] 0.81 7:30 AM RADIATION PROTECTION TECHNICIAN LABORATORIES - x10(9)/L [facility] Eosinophils 0.24 0.03 - 09/11/2018 [facility] 0.48 7:30 AM RADIATION PROTECTION TECHNICIAN LABORATORIES - x10(9)/L [facility] Basophils <0.03 0.01 - 09/11/2018 [facility] 0.08 7:30 AM RADIATION PROTECTION TECHNICIAN LABORATORIES - x10(9)/L [facility] Specimen Anatomical Collection Method Collection Time Receive d Time (Source) Location / / Volume Laterality Blood (Blood, 09/11/2018 7:04 AM 09/11/19 19 7:26 Venous) RADIATION PROTECTION TECHNICIAN AM RADIATION PROTECTION TECHNICIAN Rika Cameron M.D. LAB BLOOD ADD-ON Performing Organization Address City/State/[facility] Code Phon e Number [facility] LABORATORIES - [address] Bilirubin, Total (09/11/2018 7:04 AM RADIATION PROTECTION TECHNICIAN) P athologist Signature Bilirubin, 0.7 <=1.2 09/11/2018 [facility] Total, S mg/dL 8:09 AM RADIATION PROTECTION TECHNICIAN LABORATORIES - [facility] Specimen Anatomical Collection Method Collection Time Receive d Time (Source) Location / / Volume Laterality Blood (Blood, 09/11/2018 7:04 AM 09/11/19 19 7:25 Venous) RADIATION PROTECTION TECHNICIAN AM RADIATION PROTECTION TECHNICIAN Rika Cameron M.D. LAB BLOOD ADD-ON Performing Organization Address City/State/[facility] Phon e Number [facility] LABORATORIES - [address] [place] [address] [facility] AST (Aspartate Aminotransferase) (09/11/2018 7:04 AM RADIATION PROTECTION TECHNICIAN) Patholo gist Method Time Signature Aspartate 15 8 - 43 09/11/2018 [facility] Aminotransferase U/L 8:09 AM RADIATION PROTECTION TECHNICIAN LABORATORIE S - (AST), S [facility] Specimen Anatomical Collection Method Collection Time Receive d Time (Source) Location / / Volume Laterality Blood (Blood, 09/11/2018 7:04 AM 09/11/19 19 7:25 Venous) RADIATION PROTECTION TECHNICIAN AM RADIATION PROTECTION TECHNICIAN Rika Cameron M.D. LAB BLOOD ADD-ON Performing Organization Address City/[facility] Phon e Number [facility] LABORATORIES - [address] [place] [address] [facility] Alkaline Phosphatase (09/11/2018 7:04 AM RADIATION PROTECTION TECHNICIAN) athologist Signature Alkaline 62 35 - 104 09/11/2018 [facility] Phosphatase, S U/L 9:24 AM RADIATION PROTECTION TECHNICIAN LABORATORIES - [facility] Specimen Anatomical Collection Method Collection Time Receive d Time (Source) Location / / Volume Laterality Blood (Blood, 09/11/2018 7:04 AM 09/11/19 19 7:25 Venous) RADIATION PROTECTION TECHNICIAN AM RADIATION PROTECTION TECHNICIAN Rika Cameron M.D. LAB BLOOD ADD-ON Performing Organization Address City/[facility] Code Phon e Number [facility] LABORATORIES - [address] [place] [address] [facility] CK (Creatine Kinase) (03/09/2018 3:01 PM CDT) athologist Signature Creatine 63 26 - 192 03/09/2018 [facility] Kinase (CK), S U/L 3:57 PM CDT LABORATORIES - [facility] Specimen Anatomical Collection Method Collection Time Receive d Time (Source) Location / / Volume Laterality Blood (Blood, 03/09/2018 3:01 PM 03/09/20 18 3:20 Venous) CDT PM CDT Rika Cameron M.D. LAB BLOOD ADD-ON Performing Organization Address City/[facility] Phon e Number [facility] LABORATORIES - [address] [place] [address] [facility] C-Reactive Protein, High Sensitivity (03/09/2018 3:01 PM CDT) athologist Signature C-Reactive 1.8 <2.0 mg/L 03/10/2018 [facility] Protein, High 9:21 AM CDT LABORATORIES - Sens, S [facility] Comment: Lower risk Specimen Anatomical Collection Method Collection Time Receive d Time (Source) Location / / Volume Laterality Blood (Blood, 03/09/2018 3:01 PM 03/09/20 18 4:22 Venous) CDT PM CDT Rika Cameron M.D. LAB BLOOD ADD-ON Performing Organization Address City/[facility]/ZIP Code Phon e Number [facility] LABORATORIES - [address] [place] [address] [facility] Iron (03/09/2018 3:01 PM CDT) athologist Signature Iron, S 71 35 - 145 03/09/2018 [facility] mcg/dL 3:57 PM CDT LABORATORIES - [facility] Specimen Anatomical Collection Method Collection Time Receive d Time (Source) Location / / Volume Laterality Blood (Blood, 03/09/2018 3:01 PM 03/09/20 18 3:20 Venous) CDT PM CDT Rika Cameron M.D. LAB BLOOD ADD-ON Performing Organization Address City/[facility]/ZIP Code Phon e Number [facility] LABORATORIES - [address] [place] [address] [facility] S-TSH (Thyroid-Stimulating Hormone - Sensitive) (03/09/2018 3:01 PM CDT) athologist [facility] TSH, Sensitive 3.2 0.3 - 4.2 03/09/2018 [facility] mIU/L 3:57 PM CDT LABORATORIES - [facility] Specimen Anatomical Collection Method Collection Time Receive d Time (Source) Location / / Volume Laterality Blood (Blood, 03/09/2018 3:01 PM 03/09/20 18 3:20 Venous) CDT PM CDT Rika Cameron M.D. LAB BLOOD ADD-ON Performing Organization Address City/[facility]/ZIP Code Phon e Number [facility] LABORATORIES - [address] [address] [facility] Lipase (03/09/2018 3:01 PM CDT) athologist Signature Lipase, S 27 12 - 61 U/L 03/09/2018 [facility] 3:57 PM CDT LABORATORIES [facility] Specimen Anatomical Collection Method Collection Time Receive d Time (Source) Location / / Volume Laterality Blood (Blood, 03/09/2018 3:01 PM 03/09/20 18 3:20 Venous) CDT PM CDT Rika Cameron M.D. LAB BLOOD ADD-ON Performing Organization Address City/[facility]/ZIP Code Phon e Number [facility] LABORATORIES - [address] [place] [address] [facility] GGT (Gamma-Glutamyltransferase) (03/09/2018 3:01 PM CDT) Component Value Ref Test [facility] gist Range Method Time Signature Gamma 12 5 - 36 03/09/2018 [facility] Glutamyltransferase U/L 3:57 PM CDT LABORATO ARYAN - (GGT), S [facility] Specimen Anatomical Collection Method Collection Time Receive d Time (Source) Location / / Volume Laterality Blood (Blood, 03/09/2018 3:01 PM 03/09/20 18 3:20 Venous) CDT PM CDT Rika Cameron M.D. LAB BLOOD ADD-ON Performing Organization Address [facility]/ZIP Code Phon e Number [facility] LABORATORIES - [address] [place] [address] [facility] BUN (Blood Urea Nitrogen) (03/09/2018 3:01 PM CDT) P athologist Signature BUN (Blood 19 6 - 21 03/09/2018 [facility] Urea mg/dL 3:57 PM CDT LABORATORIES - Nitrogen), S [facility] Specimen Anatomical Collection Method Collection Time Receive d Time (Source) Location / / Volume Laterality Blood (Blood, 03/09/2018 3:01 PM 03/09/20 18 3:20 Venous) CDT PM CDT Rika Cameron M.D. LAB BLOOD ADD-ON Performing Organization Address City/[facility]/ZIP Code Phon e Number [facility] LABORATORIES - [address] [place] [address] [facility] Uric Acid (03/09/2018 3:01 PM CDT) P athologist Signature Uric Acid, S 3.9 2.7 - 6.1 03/09/2018 [facility] mg/dL 3:57 PM CDT LABORATORIES - [facility] Specimen Anatomical Collection Method Collection Time Receive d Time (Source) Location / / Volume Laterality Blood (Blood, 03/09/2018 3:01 PM 03/09/20 18 3:20 Venous) CDT PM CDT Rika Cameron M.D. LAB BLOOD ADD-ON Performing Organization Address City/State/ZIP Code Phon e Number [facility] LABORATORIES - [address] [place] [address] [facility] LD (Lactate Dehydrogenase) (03/09/2018 3:01 PM CDT) [facility] Method Time Signature Lactate 149 122 - 222 03/09/2018 [facility] Dehydrogenase U/L 3:57 PM CDT LABORATORIES - (LD), [facility] Specimen Anatomical Collection Method Collection Time Receive d Time (Source) Location / / Volume Laterality Blood (Blood, 03/09/2018 3:01 PM 03/09/20 18 3:20 Venous) CDT PM CDT Rika Cameron M.D. LAB BLOOD NON ADD-ON Performing Organization Address City/[facility] Code Phon e Number [facility] LABORATORIES - [address] [place] [address] [facility] Calcium, Total (03/09/2018 3:01 PM CDT) P athologist Signature Calcium, 9.3 8.8 - 10.2 03/09/2018 [facility] Total, S mg/dL 3:57 PM CDT LABORATORIES - [facility] Specimen Anatomical Collection Method Collection Time Receive d Time (Source) Location / / Volume Laterality Blood (Blood, 03/09/2018 3:01 PM 03/09/20 18 3:20 Venous) CDT PM CDT Rika Cameron M.D. LAB BLOOD ADD-ON Performing Organization Address City/[facility]/ZIP Code Phon e Number [facility] LABORATORIES - [address] [place] [address] [facility] ALT (Alanine Aminotransferase) (03/09/2018 3:01 PM CDT) [facility] Method Time Signature Alanine 18 7 - 45 03/09/2018 [facility] Aminotransferase U/L 3:57 PM CDT LABORATORIE S - (ALT), S [facility] Specimen Anatomical Collection Method Collection Time Receive d Time (Source) Location / / Volume Laterality Blood (Blood, 03/09/2018 3:01 PM 03/09/20 18 3:20 Venous) CDT PM CDT Rika Cameron M.D. LAB BLOOD ADD-ON Performing Organization Address City/[facility]/ZIP Code Phon e Number [facility] LABORATORIES - [address] [place], [place] [address] [facility] documented in this encounter Visit Diagnoses Diagnosis Fatigue - Primary Waldenstrom's Macroglobulinemia (HCC) documented in this encounter
--- OUTSIDE RECORDS SUMMARY | 2022-07-11 01:16 | XMS_ITS | Encounter Summary ---
:1945 Author Organization [facility] Address [address] [place] [address] Care Team Providers Name Role Phone Unavailable Primary Care Provider Unavailable Encounter Details Date Type Department Care Team Description 02/27/2018 Clinical Communication Division of Hematology Rika Cameron in Sarah Castillo M.D. [address] [place] [phone] Social History Tobacco Use Types Packs/Day Years [...] (ABNORMAL) Lipid Panel (03/09/2018 8:44 AM CDT) [facility] Method Time Signature Cholesterol, 228 (H) mg/dL 03/09/2018 [facility] Total 9:50 AM CDT [facility] Comment: ----REFERENCE VALUE---- Desirable: < 200 Borderline high: 200 - 239 High: > or = 240 Triglycerides 55 mg/dL 03/09/2018 9:50 AM CDT [facility] Comment: ----REFERENCE VALUE---- Normal: <150 Borderline high: 150-199 High: 200-499 Very high: > or =500 Cholesterol, HDL, S 75 >=50 mg/dL 03/09/2018 9:50 AM [facility] Calculated LDL 142 (H) mg/dL 03/09/2018 9:50 AM [facility] Comment: ----REFERENCE VALUE---- Desirable: <100 Above Desirable: 100-129 Borderline high: 130-159 High: 160-189 Very high: > or =190 Cholesterol, Non-HDL, 153 mg/dL 03/09/2018 9:[address] [facility] Comment: ----REFERENCE VALUE---- Desirable: <130 Above Desirable: 130-159 Borderline high: 160-189 High: 190-219 Very high: > or =220 Specimen Anatomical Collection Method Collection Time Receive d Time (Source) Location / / Volume Laterality Blood (Blood, 03/09/2018 8:44 AM 03/09/20 9:07 Venous) CDT AM CDT Rika A Cameron M.D. LAB BLOOD ADD-ON Performing Organization Address City/State/ZIP Code Phon e Number [facility] - [address] [place], [place] [address] [facility] documented in this encounter Visit Diagnoses Diagnosis Hyperlipidemia - Primary documented in this encounter
--- OUTSIDE RECORDS SUMMARY | 2022-07-11 01:16 | XMS_ITS | Encounter Summary ---
:1945 Author Organization [facility] Address [address] [place] [address] Care Team Providers Name Role Phone Unavailable [...] or relatives? How often do you attend faith or More than 4 times per year 04/09/2022 hoahaoism services? Do you belong to any clubs or Yes 04/09/2022 organizations such as faith groups, unions, fraternal or athletic groups, or [...]
--- OUTSIDE RECORDS SUMMARY | 2022-07-11 01:16 | XMS_ITS | Encounter Summary ---
:1945 Author Organization [facility] Address [address] [place] [address] Care Team Providers Name Role Phone Elsewhere, Pcp Primary Care Provider Unavailable Encounter Details Date Type Department Care Team Description 09/14/2012 Historical Ophthalmology RST OPH Arron Patricio M.D. [address] [place], [place] [phone] (Wo rk) Social History [...] Waldenstrom macroglobulinemia CDM Reports - EYEGEN Id: [id number] Status: Fnl documented in this encounter Plan of Treatment Not on filedocumented as of this encounter Visit Diagnoses Not on filedocumented in this encounter Care Teams Manager Talent Management Relationship Specialty Start Date End Date Elsewhere, Pcp PCP - General Family Medicine 03/04/21 documented as of this encounter
--- OUTSIDE RECORDS SUMMARY | 2022-07-11 01:16 | XMS_ITS | Encounter Summary ---
:1945 Author Organization [facility] Address [address] [place] [address] Care Team Providers Name Role Phone Unavailable Primary Care Provider Unavailable Encounter Details Date Type Department Care Team Description 11/26/2017 Abstract Division of Hematology in Daisy López R.N. [place], [place] [address] [facility] [address] [place] [address] [place] [address] [phone] Social History Tobacco Use Types Packs/Day Years [...] More than 4 times per year 04/09/2022 latter day services? Do you belong to any clubs [...] slept in a senior living (including now)? Sex Assigned at Date Recorded Female 03/05/2018 7:34 PM CDT documented as of this encounter Plan of Treatment Not on filedocumented as of this encounter Visit Diagnoses Not on filedocumented in this encounter
--- OUTSIDE RECORDS SUMMARY | 2022-07-11 01:16 | XMS_ITS | Encounter Summary ---
:1945 Author Organization [facility] Address [address] [place] [address] Care Team Providers Name Role Phone Unavailable [...] for the very basics like Not h elyo at all 04/09/2022 food, housing, medical care, [...]
--- OUTSIDE RECORDS SUMMARY | 2022-07-11 01:16 | XMS_ITS | Encounter Summary ---
:1945 Author Organization [facility] Address [address] [place] [address] Care Team Providers Name Role Phone Elsewhere, Pcp Primary Care Provider Unavailable Encounter Details Date Type Department Care Team Description 09/29/2016 Historical Ophthalmology RST OPH Arron Patricio M.D. 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 Plan: Get SL photos today or Nov 01. See Dr. Cameron Nov 01 to determine if systemic therapy will be [...] right eye CDM Reports - EYEGEN Id: [id number] Status: Fnl documented in this encounter Plan of Treatment Not on filedocumented as of this encounter Visit Diagnoses Not on filedocumented in this encounter Care Teams Fagot Maker Relationship Specialty Start Date End Date Elsewhere, Pcp PCP - General Family Medicine 03/04/21 documented as of this encounter
--- OUTSIDE RECORDS SUMMARY | 2022-07-11 01:16 | XMS_ITS | Encounter Summary ---
:1945 Author Organization [facility] Address [address] [place] [address] Care Team Providers Name Role Phone Elsewhere, Pcp Primary Care Provider Unavailable Encounter Details Date Type Department Care Team Description 06/01/2012 Historical Ophthalmology RST OPH Arron Patricio M.D. [address] [place], [place] [phone] (Wo rk) Social History [...] More than 4 times per year 04/09/2022 taoism services? Do you belong to any clubs [...] or slept in a snf (including now)? Sex Assigned at Date Recorded [...] eye #2 Waldenstrom macroglobulinemia [facility] Id: [id number] Status: Fnl documented in this encounter Plan of Treatment Not on filedocumented as of this encounter Visit Diagnoses Not on filedocumented in this encounter Care Teams Director Of Medical Staff Services Relationship Specialty Start Date End Date Elsewhere, Pcp PCP - General Family Medicine 03/04/21 documented as of this encounter
--- OUTSIDE RECORDS SUMMARY | 2022-07-11 01:16 | XMS_ITS | Encounter Summary ---
:1945 Author Organization [facility] Address [address] [place] [address] Care Team Providers Name Role Phone Unavailable Primary Care Provider Unavailable Reason for Visit Reason Onset Date Comments Appointment 02/21/2018 Encounter Details Date Type Department Care Team Description 02/21/2018 Clinical Communication Department of Arron Patricio Ophthalmology ar Knox M.D. [place], [place] [address] [place] [address] [address] [place] [address] [phone] Social History Tobacco Use Types Packs/Day Years [...]
--- OUTSIDE RECORDS SUMMARY | 2022-07-11 01:16 | XMS_ITS | Encounter Summary ---
:1945 Author Organization [facility] Address [address] [place] [address] Care Team Providers Name Role Phone Unavailable Primary Care Provider Unavailable Reason for Visit Reason Onset Date Comments Outside labs 12/28/2017 Encounter Details Date Type Department Care Team Description 12/28/2017 Clinical Communication Division of Rika Cameron labs Hematology ar Smith M.D. [place], [place] [address] [place] [address] [address] [place] [phone] Social History Tobacco Use Types Packs/Day Years [...]
--- OUTSIDE RECORDS SUMMARY | 2022-07-11 01:16 | XMS_ITS | Encounter Summary ---
:1945 Author Organization [facility] [place] Address [address] [place] [address] Care Team Providers Name Role Phone Unavailable [...] or slept in a assisted (including now)? Sex Assigned at Date Recorded [...] daily. 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 0 [...]
--- OUTSIDE RECORDS SUMMARY | 2022-07-11 01:16 | XMS_ITS | Encounter Summary ---
:1945 Author Organization [facility] Address [address] [place] [address] Care Team Providers Name Role Phone Elsewhere, Pcp Primary Care Provider Unavailable Encounter Details Date Type Department Care Team Description 05/16/2017 Historical Ophthalmology RST OPH Arron Patricio M.D. [address] [place], [place] [phone] (Wo rk) Social History [...] More than 4 times per year 04/09/2022 confucianism services? Do you belong to any clubs [...] right eye CDM Reports - EYEGEN Id: [id number] Status: Fnl documented in this encounter Plan of Treatment Not on filedocumented as of this encounter Visit Diagnoses Not on filedocumented in this encounter Care Teams Road Machine Operator Relationship Specialty Start Date End Date Elsewhere, Pcp PCP - General Family Medicine 03/04/21 documented as of this encounter
--- OUTSIDE RECORDS SUMMARY | 2022-07-11 01:16 | XMS_ITS | Encounter Summary ---
:1945 Author Organization [facility] Address [address] [place] [address] Care Team Providers Name Role Phone Elsewhere, Pcp Primary Care Provider Unavailable Encounter Details Date Type Department Care Team Description 04/15/2014 Historical Ophthalmology RST OPH Arron Patricio M.D. [address] [place], [place] [phone] (Wo rk) Social History [...] left>right eye CDM Reports - EYEGEN Id: [id number] Status: Fnl documented in this encounter Plan of Treatment Not on filedocumented as of this encounter Visit Diagnoses Not on filedocumented in this encounter Care Teams Cosmetics Demonstrator Relationship Specialty Start Date End Date Elsewhere, Pcp PCP - General Family Medicine 03/04/21 documented as of this encounter
--- OUTSIDE RECORDS SUMMARY | 2022-07-11 01:16 | XMS_ITS | Encounter Summary ---
:1945 Author Organization [facility] Address [address] [place] [address] Care Team Providers Name Role Phone Unavailable Primary Care Provider Unavailable Reason for Referral Outpatient (Routine) - Closed Specialty Diagnoses / Procedures Referred By Referred To Contact Contact Hematology Oncology Diagnoses Waldenstrom's Macroglobulinemia (HCC) Rika Cameron [facility] Ana Smith [address] [place] [address] Referral ID Status Reason Start Date Expiration Date Visits Requ ested Visits Authorized [id number] Closed 12/09/2017 06/07/2018 1 1 Encounter Details Date Type Department Care Team Description 12/09/2017 Orders Only Division of Rika Cameron 'oz Hematology ut Ana Smith Macroglobulinemia (HCC) [place], [place] [address] [place] [address] [address] [place] [phone] Social History Tobacco Use Types Packs/Day Years [...] Name Type Priority Associated Diagnoses Order S [facility] Hematology office Outpatient Routine Waldenstrom's Expected: visit (clinic) Referral Macroglobulinemia (HCC) (Approximate), Expires: 12/09/2020 documented as of this encounter Results Glucose, Fasting (03/09/2018 8:45 AM CDT) athologist Signature Glucose, P 85 70 - 100 03/09/2018 [facility] mg/dL 9:41 AM CDT [facility] Last Intake 13 hr 03/09/2018 [facility] 9:08 AM CDT [facility] Specimen Anatomical Collection Method Collection Time Receive d Time (Source) Location / / Volume Laterality Blood 03/09/2018 8:45 AM 8 9:08 CDT AM CDT Rika Cameron M.D. LAB BLOOD NON ADD-ON Performing Organization Address City/State/ZIP Code Phon e Number [facility]ORATORIES - [address] [place], [place] [address] [facility] Sodium (03/09/2018 8:44 AM CDT) P athologist Signature Sodium, S 138 135 - 145 03/09/2018 [facility] mmol/L 9:51 AM CDT LABORATORIES - [facility] Specimen Anatomical Collection Method Collection Time Receive d Time (Source) Location / / Volume Laterality Blood 03/09/2018 8:44 AM 8 9:07 CDT AM CDT Rika Cameron M.D. LAB BLOOD ADD-ON Performing Organization Address City/[facility] Phon e Number [facility]ORATORIES - [address] [place] [address] [facility] Potassium (03/09/2018 8:44 AM CDT) P athologist Signature Potassium, S 4.0 3.6 - 5.2 03/09/2018 [facility] mmol/L 9:51 AM CDT LABORATORIES - [facility] Specimen Anatomical Collection Method Collection Time Receive d Time (Source) Location / / Volume Laterality Blood 03/09/2018 8:44 AM 8 9:07 CDT AM CDT Rika Cameron M.D. LAB BLOOD ADD-ON Performing Organization Address City/State/[facility] Code Phon e Number [facility] LABORATORIES - [address] [place] [address] [facility] Monoclonal Protein Study (03/09/2018 8:44 AM CDT) Component Value Ref Test Analysis Performed At [facility] gist Range Method Time Signature Total Protein, S 7.1 6.3 - 03/09/2018 [facility] 7.9 10:34 AM LABORATORIES - g/dL CDT [facility] Albumin 3.4 3.4 - 03/09/2018 [facility] 4.7 3:28 PM LABORATORIES - g/dL CDT [facility] Alpha-1 Globulin 0.3 0.1 - 03/09/2018 [facility] 0.3 3:28 PM LABORATORIES - g/dL CDT [facility] Alpha-2 Globulin 1.0 0.6 - 03/09/2018 [facility] 1.0 3:28 PM LABORATORIES - g/dL T [facility] Beta-Globulin 0.8 0.7 - 03/09/2018 [facility] 1.2 3:28 PM LABORATORIES - g/dL T [facility] Gamma-Globulin 1.5 0.6 - 03/09/2018 [facility] 1.6 3:28 PM LABORATORIES - g/dL T [facility] A/G Ratio 0.92 03/09/2018 [facility] 3:28 PM LABORATORIES - [facility] M spike 1.4 g/dL 03/09/2018 [facility] 3:28 PM LABORATORIES - T [facility] Impression M-spike in gamma fraction. 03/09/2018 [facility] See Immunofixation. 3:28 PM LABORATORI ES - T [facility] Immunofixation Monoclonal IgM kappa. 03/10/2018 [facility] Size of monoclonal protein not changed significantly s andria 11/18/2017. 1:39 PM LABORATORIES - Suggest protein electrophoresis only to follow the patient rather than CDT [facility] immunofixation. CAMPUS Specimen Anatomical Collection Method Collection Time Receive d Time (Source) Location / / Volume Laterality Blood 03/09/2018 8:44 AM 8 9:37 CDT AM CDT Rika Cameron M.D. LAB BLOOD ADD-ON Performing Organization Address City/[facility]/ZIP Code Phon e Number [facility] LABORATORIES - [address] [place] [address] [facility] (ABNORMAL) Immunoglobulin M (IgM) (03/09/2018 8:44 AM CDT) Patholo gist Method Time Signature Immunoglobulin M 1800 (H) 37 - 286 03/09/2018 [facility] (IgM), S mg/dL 12:20 PM LABORATORIES - T [facility] Specimen Anatomical Collection Method Collection Time Receive d Time (Source) Location / / Volume Laterality Blood 03/09/2018 8:44 AM 8 9:37 CDT AM CDT Rika Cameron M.D. LAB BLOOD ADD-ON Performing Organization Address City/State/[facility] Code Phon e Number [facility] LABORATORIES - [address] [place] [address] [facility] Creatinine with Estimated GFR (MDRD) (03/09/2018 8:44 AM CDT) Analysis Performed At Path logist Time Signature Creatinine 0.74 0.59 - 03/09/2018 [facility] 1.04 mg/dL 9:51 AM CDT LABORATORIES - [facility] eGFR-Non 81 >=60 03/09/2018 [facility] Black/ mL/min/BSA 9:51 AM CDT LABORATORIES - [facility] Comment: ----ADDITIONAL INFORMATION---- Estimated GFR calculated using the 2009 CKD_EPI creatinine equation. eGFR-Black/ >90 >=60 mL/min/BSA 03/09/2018 9:51 [facility] Namibian AM CDT LABORATORIES - [facility] Comment: ----ADDITIONAL INFORMATION---- Estimated GFR calculated using the 2009 CKD_EPI creatinine equation. Specimen Anatomical Collection Method Collection Time Receive d Time (Source) Location / / Volume Laterality Blood 03/09/2018 8:44 AM 8 9:07 CDT AM CDT Rika Cameron M.D. LAB BLOOD ADD-ON Performing Organization Address City/State/ZIP Code Phon e Number [facility] LABORATORIES - [address] [place], [place] [address] [facility] (ABNORMAL) CBC with Differential (03/09/2018 8:44 AM CDT) [facility] Method Time Signature Hemoglobin 12.6 11.6 - 03/09/2018 [facility] 15.0 g/dL 9:30 AM CDT LABORATORIES - [facility] Hematocrit 37.7 35.5 - 03/09/2018 [facility] 44.9 % 9:30 AM CDT LABORATORIES - [facility] Erythrocytes 4.27 3.92 - 03/09/2018 [facility] 5.13 9:30 AM CDT LABORATORIES - x10(12)/L [facility] MCV 88.3 78.2 - 03/09/2018 [facility] 97.9 fL 9:30 AM CDT LABORATORIES [facility] RBC Distrib 13.8 12.2 - 03/09/2018 [facility] Width 16.1 % 9:30 AM CDT LABORATORIES - [facility] Platelet Count 205 157 - 371 03/09/2018 [facility] x10(9)/L 9:30 AM CDT LABORATORIES [facility] Leukocytes 2.9 (L) 3.4 - 9.6 03/09/2018 [facility] x10(9)/L 9:30 AM CDT LABORATORIES - [facility] Neutrophils 1.94 1.56 - 03/09/2018 [facility] 6.45 9:30 AM CDT LABORATORIES - x10(9)/L [facility] Lymphocytes 0.30 (L) 0.95 - 03/09/2018 [facility] 3.07 9:30 AM CDT LABORATORIES - x10(9)/L [facility] Monocytes 0.32 0.26 - 03/09/2018 [facility] 0.81 9:30 AM CDT LABORATORIES - x10(9)/L [facility] Eosinophils 0.36 0.03 - 03/09/2018 [facility] 0.48 9:30 AM CDT LABORATORIES - x10(9)/L [facility] Basophils <0.03 0.01 - 03/09/2018 [facility] 0.08 9:30 AM CDT LABORATORIES - x10(9)/L [facility] Specimen Anatomical Collection Method Collection Time Receive d Time (Source) Location / / Volume Laterality Blood 03/09/2018 8:44 AM 8 9:08 CDT AM CDT Rika Cameron M.D. LAB BLOOD ADD-ON Performing Organization Address City/[facility]/ZIP Code Phon e Number [facility] LABORATORIES - [address] [place] [address] [facility] Bilirubin, Total (03/09/2018 8:44 AM CDT) P athologist Signature Bilirubin, 0.8 <=1.2 03/09/2018 [facility] Total, S mg/dL 9:51 AM CDT LABORATORIES - [facility] Specimen Anatomical Collection Method Collection Time Receive d Time (Source) Location / / Volume Laterality Blood 03/09/2018 8:44 AM 8 9:07 CDT AM CDT Rika Cameron M.D. LAB BLOOD ADD-ON Performing Organization Address City/[facility]/ZIP Code Phon e Number [facility] LABORATORIES - [address] [place] [address] [facility] AST (Aspartate Aminotransferase) (03/09/2018 8:44 AM CDT) Patholo gist Method Time Signature Aspartate 15 8 - 43 03/09/2018 [facility] Aminotransferase U/L 9:51 AM CDT LABORATORIE S - (AST), S [facility] Specimen Anatomical Collection Method Collection Time Receive d Time (Source) Location / / Volume Laterality Blood 03/09/2018 8:44 AM 8 9:07 CDT AM CDT Rika Cameron M.D. LAB BLOOD ADD-ON Performing Organization Address City/[facility]/ZIP Code Phon e Number [facility] LAB[facility]ATORIES - [address] [place] [address] [facility] Alkaline Phosphatase (03/09/2018 8:44 AM CDT) P athologist Signature Alkaline 57 55 - 142 03/09/2018 [facility] Phosphatase, S U/L 9:51 AM CDT LABORATORIES - [facility] Specimen Anatomical Collection Method Collection Time Receive d Time (Source) Location / / Volume Laterality Blood 03/09/2018 8:44 AM 8 9:07 CDT AM CDT Rika Cameron M.D. LAB BLOOD ADD-ON Performing Organization Address City/State/ZIP Code Phon e Number [facility] LAB[facility]ATORIES - [address] [place] [address] [facility] documented in this encounter Visit Diagnoses Diagnosis Waldenstrom's Macroglobulinemia (HCC) documented in this encounter
--- OUTSIDE RECORDS SUMMARY | 2022-07-11 01:16 | XMS_ITS | Encounter Summary ---
:1945 Author Organization [facility] Address [address] [place] [address] Care Team Providers Name Role Phone Elsewhere, Pcp Primary Care Provider Unavailable Encounter Details Date Type Department Care Team Description 10/16/2014 Historical Ophthalmology RST OPH Arron Patricio M.D. [address] [place], [place] [phone] (Wo rk) Social History [...] the procedure with the patient (or legal outside industrial sales representative and others present during the discussion). The patient understands. All questions answered and consent given. #[address]strom [address] Cameron. #3 Cataract, left>right eye Visually significant Plan: Cataract surgery, left eye The alternatives to cataract surgery were discussed in detail with the patient (or legal outside industrial sales representative and others present during the discussion). [...] left>right eye CDM Reports - EYEGEN Id: [id number] Status: Fnl documented in this encounter Plan of Treatment Not on filedocumented as of this encounter Visit Diagnoses Not on filedocumented in this encounter Care Teams Community Pharmacist Relationship Specialty Start Date End Date Elsewhere, Pcp PCP - General Family Medicine 03/04/21 documented as of this encounter
--- OUTSIDE RECORDS SUMMARY | 2022-07-11 01:16 | XMS_ITS | Encounter Summary ---
:1945 Author Organization [facility] Address [address] [place] [address] Care Team Providers Name Role Phone Unavailable Primary Care Provider Unavailable Encounter Details Date Type Department Care Team Description 01/24/2017 - Hospital Encounter HX RST INFUSION Ban Jacome, 01/31/2017 THERAPY R.N. [address] [place] [address] Social History Tobacco Use Types Packs/Day Years [...] daily. 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 0 [...]
--- OUTSIDE RECORDS SUMMARY | 2022-07-11 01:16 | XMS_ITS | Encounter Summary ---
:1945 Author Organization [facility] Address [address] [place] [address] Care Team Providers Name Role Phone Unavailable [...] or relatives? How often do you attend protestant or More than 4 times per year 04/09/2022 mandaeism services? Do you belong to any clubs or Yes 04/09/2022 organizations such as protestant groups, unions, fraternal or athletic groups, or [...]
--- OUTSIDE RECORDS SUMMARY | 2022-07-11 01:16 | XMS_ITS | Encounter Summary ---
:1945 Author Organization [facility] Address [address] [place] [address] Care Team Providers Name Role Phone Elsewhere, Pcp Primary Care Provider Unavailable Encounter Details Date Type Department Care Team Description 06/26/2015 Historical Ophthalmology RST OPH Arron Patricio M.D. [address] [place], [place] [phone] (Wo rk) Social History [...] / PLAN Consult requested by: Bereket Espino [id number] #1 Subconjunctival lymphoma, left eye s/p incisional [...] right eye CDM Reports - EYEGEN Id: [id number] Status: Fnl documented in this encounter Plan of Treatment Not on filedocumented as of this encounter Visit Diagnoses Not on filedocumented in this encounter Care Teams Training Systems Officer Relationship Specialty Start Date End Date Elsewhere, Pcp PCP - General Family Medicine 03/04/21 documented as of this encounter
--- OUTSIDE RECORDS SUMMARY | 2022-07-11 01:16 | XMS_ITS | Encounter Summary ---
:1945 Author Organization [facility] Address [address] [place] [address] Care Team Providers Name Role Phone Elsewhere, Pcp Primary Care Provider Unavailable Encounter Details Date Type Department Care Team Description 10/24/2014 Historical Ophthalmology RST OPH Arron Patricio M.D. [address] [place], [place] [phone] (Wo rk) Social History [...] or relatives? How often do you attend rastafarian or More than 4 times per year 04/09/2022 jehovah's witness services? Do you belong to any clubs or Yes 04/09/2022 organizations such as rastafarian groups, unions, fraternal or athletic groups, or [...] left eye. CDM Reports - EYEGEN Id: [id number] Status: Fnl documented in this encounter Plan of Treatment Not on filedocumented as of this encounter Visit Diagnoses Not on filedocumented in this encounter Care Teams Control Panel Operator Crude Unit Relationship Specialty Start Date End Date Elsewhere, Pcp PCP - General Family Medicine 03/04/21 documented as of this encounter
--- OUTSIDE RECORDS SUMMARY | 2022-07-11 01:16 | XMS_ITS | Encounter Summary ---
:1945 Author Organization [facility] Address [address] [place] [address] Care Team Providers Name Role Phone Elsewhere, Pcp Primary Care Provider Unavailable Encounter Details Date Type Department Care Team Description 07/12/2013 Historical Ophthalmology RST OPH Arron Patricio M.D. [address] [place], [place] [phone] (Wo rk) Social History [...] as of this encounter Progress Notes Arron Patrciio M.D. - 07/12/2013 9:09 AM CST Eye [...] both eyes CDM Reports - EYEGEN Id: [id number] Status: Fnl documented in this encounter Plan of Treatment Not on filedocumented as of this encounter Visit Diagnoses Not on filedocumented in this encounter Care Teams Guest Specialist Relationship Specialty Start Date End Date Elsewhere, Pcp PCP - General Family Medicine 03/04/21 documented as of this encounter
--- OUTSIDE RECORDS SUMMARY | 2022-07-11 01:16 | XMS_ITS | Encounter Summary ---
:[address] [facility] Address [address] [place] [address] Care Team Providers Name Role Phone Unavailable Primary Care Provider Unavailable Encounter Details Date Type Department Care Team Description 03/09/2018 Hospital Department of Cameron, Waldenstrom's Macroglobulinemia (HCC); Encounter Laboratory Rika Smith M.D. Hyperlipidemia Medicine and [address] [place] [address] [place] [address] [facility] [phone] [place] (Work) [address] [place] [address] [place], [place] (Fax) [phone] Social History Tobacco Use [...] daily. 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 LAB BLOOD NON ADD-ON Performing Organization Address City/State/ZIP Code Phon e Number [facility] LABORATORIES - [address] [place] [address] [facility] (ABNORMAL) Lipid Panel (03/09/2018 8:44 AM CDT) Patholo gist Method Time Signature Cholesterol, 228 (H) mg/dL 03/09/2018 [facility] Total 9:50 AM CDT [facility] Comment: ----REFERENCE VALUE---- Desirable: < 200 Borderline high: 200 - 239 High: > or = 240 Triglycerides 55 mg/dL 03/09/2018 9:50 AM CDT [facility] Comment: ----REFERENCE VALUE---- Normal: <150 Borderline high: 150-199 High: 200-499 Very high: > or =500 Cholesterol, HDL, S 75 >=50 mg/dL 03/09/2018 9:50 AM [facility] Calculated LDL 142 (H) mg/dL 03/09/2018 9:50 AM [facility] Comment: ----REFERENCE VALUE---- Desirable: <100 Above Desirable: 100-129 Borderline high: 130-159 High: 160-189 Very high: > or =190 Cholesterol, Non-HDL, 153 mg/dL 03/09/2018 9:5 0 AM CDT [facility] Comment: ----REFERENCE VALUE---- Desirable: [...] Phon e Number [facility] - [address] [place] [address] [facility] Sodium (03/09/2018 8:44 AM CDT) P athologist Signature Sodium, S 138 135 - 145 03/09/2018 [facility] mmol/L 9:51 AM CDT [facility] Specimen Anatomical Collection Method Collection Time Receive d Time (Source) Location / / Volume Laterality Blood 03/09/2018 8:44 AM 8 9:07 CDT AM CDT Rika Cameron M.D. LAB BLOOD ADD-ON Performing Organization Address City/[facility]/ZIP Code Phon e Number [facility] LABORATORIES - [address] [place] [address] [facility] Potassium (03/09/2018 8:44 AM CDT) P athologist Signature Potassium, S 4.0 3.6 - 5.2 03/09/2018 [facility] mmol/L 9:51 AM CDT LABORATORIES - [facility] Specimen Anatomical Collection Method Collection Time Receive d Time (Source) Location / / Volume Laterality Blood 03/09/2018 8:44 AM 8 9:07 CDT AM CDT Rika Cameron M.D. LAB BLOOD ADD-ON Performing Organization Address City/[facility] Phon e Number [facility] LABORATORIES - [address] [place] [address] [facility] Monoclonal Protein Study (03/09/2018 8:44 AM CDT) Component Value Ref Test Analysis Performed At Patholo gist Range Method Time Signature Total Protein, S 7.1 6.3 - 03/09/2018 [facility] 7.9 10:34 AM LABORATORIES - g/dL CDT [facility] Albumin 3.4 3.4 - 03/09/2018 [facility] 4.7 3:28 PM LABORATORIES - g/dL CDT [facility] Alpha-1 Globulin 0.3 0.1 - 03/09/2018 [facility] 0.3 3:28 PM LABORATORIES - g/dL CDT [facility] Alpha-2 Globulin 1.0 0.6 - 03/09/2018 [facility] 1.0 3:28 PM LABORATORIES - g/dL CDT [facility] Beta-Globulin 0.8 0.7 - 03/09/2018 [facility] 1.2 3:28 PM LABORATORIES - g/dL CDT [facility] Gamma-Globulin 1.5 0.6 - 03/09/2018 [facility] 1.6 3:28 PM LABORATORIES - g/dL CDT [facility] A/G Ratio 0.92 03/09/2018 [facility] 3:28 PM LABORATORIES - CDT [facility] M spike 1.4 g/dL 03/09/2018 [facility] 3:28 PM LABORATORIES - CDT [facility] Impression M-spike in gamma fraction. 03/09/2018 [facility] See Immunofixation. 3:28 PM LABORATORI ES - CDT [facility] Immunofixation Monoclonal IgM kappa. 03/10/2018 [facility] Size of monoclonal protein not changed significantly s andria 11/18/2017. 1:39 PM LABORATORIES - Suggest protein electrophoresis only to follow the patient rather than CDT [facility] immunofixation. CAMPUS Specimen Anatomical Collection Method Collection Time Receive d Time (Source) Location / / Volume Laterality Blood 03/09/2018 8:44 AM 8 9:37 CDT AM CDT Rika Cameron M.D. LAB BLOOD ADD-ON Performing Organization Address City/[facility]/ZIP Code Phon e Number [facility] LABORATORIES - [address] [place] [phone] [facility] (ABNORMAL) Immunoglobulin M (IgM) (03/09/2018 8:44 AM CDT) [facility] Method Time Signature Immunoglobulin M 1800 (H) 37 - 286 03/09/2018 [facility] (IgM), S mg/dL 12:20 PM LABORATORIES - CDT [facility] Specimen Anatomical Collection Method Collection Time Receive d Time (Source) Location / / Volume Laterality Blood 03/09/2018 8:44 AM 8 9:37 CDT AM CDT Rika Cameron M.D. LAB BLOOD ADD-ON Performing Organization Address City/State/ZIP Code Phon e Number [facility] LABORATORIES - [address] [place] [address] [facility] Creatinine with Estimated GFR (MDRD) (03/09/2018 8:44 AM CDT) Analysis Performed At Path logist Time Signature Creatinine 0.74 0.59 - 03/09/2018 [facility] 1.04 mg/dL 9:51 AM CDT LABORATORIES - [facility] eGFR-Non 81 >=60 03/09/2018 [facility] Black/ mL/min/BSA 9:51 AM CDT LABORATORIES - [facility] Comment: ----ADDITIONAL INFORMATION---- Estimated GFR calculated using the 2009 CKD_EPI creatinine equation. eGFR-Black/ >90 >=60 mL/min/BSA 03/09/2018 9:51 [facility] Senegalese AM CDT LABORATORIES - [facility] Comment: ----ADDITIONAL INFORMATION---- Estimated GFR calculated using the 2009 CKD_EPI creatinine equation. Specimen Anatomical Collection Method Collection Time Receive d Time (Source) Location / / Volume Laterality Blood 03/09/2018 8:44 AM 8 9:07 CDT AM CDT Rika Cameron M.D. LAB BLOOD ADD-ON Performing Organization Address City/State/ZIP Code Phon e Number [facility] LABORATORIES - [address] [place], [place] [address] [facility] (ABNORMAL) CBC with Differential (03/09/2018 8:44 AM CDT) [facility] Method Time Signature Hemoglobin 12.6 11.6 - 03/09/2018 [facility] 15.0 g/dL 9:30 AM CDT LABORATORIES - [facility] Hematocrit 37.7 35.5 - 03/09/2018 [facility] 44.9 % 9:30 AM CDT LABORATORIES - [facility] Erythrocytes 4.27 3.92 - 03/09/2018 [facility] 5.13 9:30 AM CDT LABORATORIES - x10(12)/L [facility] MCV 88.3 78.2 - 03/09/2018 [facility] 97.9 fL 9:30 AM CDT LABORATORIES - [facility] RBC Distrib 13.8 12.2 - 03/09/2018 [facility] Width 16.1 % 9:30 AM CDT LABORATORIES - [facility] Platelet Count 205 157 - 371 03/09/2018 [facility] x10(9)/L 9:30 AM CDT LABORATORIES - [facility] Leukocytes 2.9 (L) 3.4 - 9.6 03/09/2018 [facility] x10(9)/L 9:30 AM CDT LABORATORIES - [facility] Neutrophils 1.94 1.56 - 03/09/2018 [facility] 6.45 9:30 AM CDT LABORATORIES - x10(9)/L [facility] Lymphocytes 0.30 (L) 0.95 - 03/09/2018 [facility] 3.07 9:30 AM CDT LABORATORIES - x10(9)/L [facility] Monocytes 0.32 0.26 - 03/09/2018 [facility] 0.81 9:30 AM CDT LABORATORIES - x10(9)/L [facility] Eosinophils 0.36 0.03 - 03/09/2018 [facility] 0.48 9:30 AM CDT LABORATORIES - x10(9)/L [facility] Basophils <0.03 0.01 - 03/09/2018 [facility] 0.08 9:30 AM CDT LABORATORIES - x10(9)/L [facility] Specimen Anatomical Collection Method Collection Time Receive d Time (Source) Location / / Volume Laterality Blood 03/09/2018 8:44 AM 8 9:08 CDT AM CDT Rika Cameron M.D. LAB BLOOD ADD-ON Performing Organization Address City/State/ZIP Code Phon e Number [facility] LABORATORIES - [address] [place] [address] [facility] Bilirubin, Total (03/09/2018 8:44 AM CDT) P athologist Signature Bilirubin, 0.8 <=1.2 03/09/2018 [facility] Total, S mg/dL 9:51 AM CDT LABORATORIES - [facility] Specimen Anatomical Collection Method Collection Time Receive d Time (Source) Location / / Volume Laterality Blood 03/09/2018 8:44 AM 8 9:07 CDT AM CDT Rika Cameron M.D. LAB BLOOD ADD-ON Performing Organization Address City/State/ZIP Code Phon e Number [facility] LABORATORIES - [address] [place] [address] [facility] AST (Aspartate Aminotransferase) (03/09/2018 8:44 AM CDT) Patholo gist Method Time Signature Aspartate 15 8 - 43 03/09/2018 [facility] Aminotransferase U/L 9:51 AM CDT LABORATORIE S - (AST), S [facility] Specimen Anatomical Collection Method Collection Time Receive d Time (Source) Location / / Volume Laterality Blood 03/09/2018 8:44 AM 8 9:07 CDT AM CDT Rika Cameron M.D. LAB BLOOD ADD-ON Performing Organization Address City/State/ZIP Code Phon e Number [facility] LABORATORIES - [address] [place] [address] [facility] Alkaline Phosphatase (03/09/2018 8:44 AM CDT) P athologist Signature Alkaline 57 55 - 142 03/09/2018 [facility] Phosphatase, S U/L 9:51 AM CDT LABORATORIES - [facility] Specimen Anatomical Collection Method Collection Time Receive d Time (Source) Location / / Volume Laterality Blood 03/09/2018 8:44 AM 8 9:07 CDT AM CDT Rika Cameron M.D. LAB BLOOD ADD-ON Performing Organization Address City/State/ZIP Code Phon e Number [facility] LABORATORIES - [address] [place] [address] [facility] documented in this encounter Visit Diagnoses Diagnosis Waldenstrom's Macroglobulinemia (HCC) Hyperlipidemia documented in this encounter
--- OUTSIDE RECORDS SUMMARY | 2022-07-11 01:17 | XMS_ITS | Encounter Summary ---
:1945 Author Organization [facility] Address [address] [place] [address] Care Team Providers Name Role Phone Unavailable [...]
--- OUTSIDE RECORDS SUMMARY | 2022-07-11 01:17 | XMS_ITS | Encounter Summary ---
:1945 Author Organization [facility] Address [address] [place] [address] Care Team Providers Name Role Phone Unavailable [...]
--- OUTSIDE RECORDS SUMMARY | 2022-07-11 01:17 | XMS_ITS | Encounter Summary ---
:1945 Author Organization [facility] Address [address] [place] [address] Care Team Providers Name Role Phone Elsewhere, Pcp Primary Care Provider Unavailable Encounter Details Date Type Department Care Team Description 10/28/2011 Historical Ophthalmology RST OPH Arron Patricio M.D. [address] [place], [place] [phone] (Wo rk) Social History [...] More than 4 times per year 04/09/2022 episcopal services? Do you belong to any clubs [...] Waldenstrom macroglobulinemia CDM Reports - EYEGEN Id: [id number] Status: Fnl documented in this encounter Plan of Treatment Not on filedocumented as of this encounter Visit Diagnoses Not on filedocumented in this encounter Care Teams Forestry And Wildlife Manager Relationship Specialty Start Date End Date Elsewhere, Pcp PCP - General Family Medicine 03/04/21 documented as of this encounter
--- OUTSIDE RECORDS SUMMARY | 2022-07-11 01:17 | XMS_ITS | Encounter Summary ---
:1945 Author Organization [facility] Address [address] [place] [address] Care Team Providers Name Role Phone Unavailable Primary Care Provider Unavailable Encounter Details Date Type Department Care Team Description 12/07/2011 - Hospital Encounter HX RST INFUSION Nneka Grier, 12/14/2011 THERAPY R.N. [address] [place] [address] Social History Tobacco Use Types Packs/Day Years [...] or relatives? How often do you attend lutheran or More than 4 times per year 04/09/2022 episcopalian services? Do you belong to any clubs or Yes 04/09/2022 organizations such as lutheran groups, unions, fraternal or athletic groups, or [...]
--- OUTSIDE RECORDS SUMMARY | 2022-07-11 01:17 | XMS_ITS | Encounter Summary ---
:[address] [facility] Address [address] [place] [address] Care Team Providers Name Role Phone Elsewhere, Pcp Primary Care Provider Unavailable Encounter Details Date Type Department Care Team Description 10/07/2011 Historical Ophthalmology RST OPH Arron Patricio M.D. [address] [place], [place] [phone] (Wo rk) Social History [...] / REPORT / PLAN Consult requested by: Jhonatan [id number] #1 Subconjunctival mass, less eye Etiology uncertain. [...] Waldenstrom macroglobulinemia CDM Reports - EYEGEN Id: [id number] Status: Fnl documented in this encounter Plan of Treatment Not on filedocumented as of this encounter Visit Diagnoses Not on filedocumented in this encounter Care Teams Admission Nurse Coordinator Relationship Specialty Start Date End Date Elsewhere, Pcp PCP - General Family Medicine 03/04/21 documented as of this encounter
--- OUTSIDE RECORDS SUMMARY | 2022-07-11 01:17 | XMS_ITS | Encounter Summary ---
:1945 Author Organization [facility] Address [address] [place] [address] Care Team Providers Name Role Phone Unavailable Primary Care Provider Unavailable Encounter Details Date Type Department Care Team Description 02/08/2012 - Hospital Encounter HX RST INFUSION Lianet Cook 02/15/2012 THERAPY B, R.N. Social History Tobacco [...]
--- OUTSIDE RECORDS SUMMARY | 2022-07-11 01:17 | XMS_ITS | Encounter Summary ---
:[address] [facility] Address [address] [place] [address] Care Team Providers Name Role Phone Unavailable Primary Care Provider Unavailable Encounter Details Date Type Department Care Team Description 12/28/2011 - Hospital Encounter HX RST INFUSION Doreen Dukes 01/04/2012 THERAPY N, COKE STILL CLEANER, CNM [address] [place] [phone] Social History Tobacco Use Types Packs/Day Years [...] slept in a senior care (including now)? Sex Assigned at Date Recorded [...]
--- OUTSIDE RECORDS SUMMARY | 2022-07-11 01:17 | XMS_ITS | Encounter Summary ---
:1945 Author Organization [facility] Address [address] [place] [address] Care Team Providers Name Role Phone Unavailable Primary Care Provider Unavailable Encounter Details Date Type Department Care Team Description 2011 - Hospital Encounter HX RST INFUSION Doreen Dukes 11/22/2011 THERAPY N, SET OFF BLOCKER, CNM [address] [place] [phone] Social History Tobacco Use Types Packs/Day Years [...]
--- OUTSIDE RECORDS SUMMARY | 2022-07-11 01:17 | XMS_ITS | Encounter Summary ---
:1945 Author Organization [facility] Address [address] [place] [address] Care Team Providers Name Role Phone Unavailable Primary Care Provider Unavailable Encounter Details Date Type Department Care Team Description 01/18/2012 - Hospital Encounter HX RST INFUSION Jeff Betancur, 01/25/2012 THERAPY R.N. [address] [place] [address] Social History Tobacco Use Types Packs/Day Years [...]
--- OUTSIDE RECORDS SUMMARY | 2022-07-11 01:17 | XMS_ITS | Encounter Summary ---
:1945 Author Organization [facility] Address [address] [place] [address] Care Team Providers Name Role Phone Unavailable Primary Care Provider Unavailable Encounter Details Date Type Department Care Team Description 03/07/2012 - Hospital Encounter HX RST INFUSION Roni Wharton 03/14/2012 THERAPY E, R.N. [address] [place] [address] Social History Tobacco Use Types Packs/Day Years [...]
--- OUTSIDE RECORDS SUMMARY | 2022-07-11 01:17 | XMS_ITS | Encounter Summary ---
:1945 Author Organization [facility] Address [address] [place] [address] Care Team Providers Name Role Phone Unavailable Primary Care Provider Unavailable Encounter Details Date Type Department Care Team Description 11/08/2011 Hospital Encounter HX RST BONE MARROW ITC Curt Garcia, MEGAN R.N. [address] [place] [address] Social History Tobacco Use Types Packs/Day Years [...] More than 4 times per year 04/09/2022 confucianist services? Do you belong to any clubs [...] [id number] 08-Nov-2011 17:2 4 Rika Cameron M.D. IMJohn CT PROCEDURES CT Chest with IV Contrast [...] [phone] 08-Nov-2011 17:2 4 Rika Cameron M[address] IMG [address] PROCEDURES HX Plasma Cell Labeling Index Profile (11/08/2011 10:40 AM CDT) P athologist Signature HX %PC (Cyto 3 [facility] lg pos) LABORATORIES - [facility] HX Labeling 0.0 [facility] Index LABORATORIES [facility] Comment . 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 ??A ccording to the [place] Stratification of Myeloma and Risk Adapted Therapy [...] 9:13:33 Blood Plasma Cell Light Chain . [facility] Comment: Monotypic kappa plasma cells pr esent. HX Flow Reviewed By. . [facility] Comment: The monotypic plasma cells are CD19 and CD45 positive. ??In addition,monotypic [place] B-cell lymphocytes are present. ??These findings suggest a lymphoplasmacytic proliferative disorder. Reviewed by: John Ya II, M.D. , Ph.D. 02:28:15 Specimen Anatomical Collection Method Collection Time Receive d Time (Source) Location / / Volume Laterality 11/08/2011 10:40 11/08/2011 AM CDT 10:40 AM CDT Rika Cameron M.D. LAB HISTORICAL ORDERS Performing Organization Address City/State/ZIP Code Phon e Number [facility] LABORATORIES - [address] [place], [place] [address] [facility] documented in this encounter Visit Diagnoses Not on filedocumented in this encounter
--- OUTSIDE RECORDS SUMMARY | 2022-07-11 01:17 | XMS_ITS | Encounter Summary ---
:1945 Author Organization [facility] Address [address] [place] [address] Care Team Providers Name Role Phone Elsewhere, Pcp Primary Care Provider Unavailable Encounter Details Date Type Department Care Team Description 10/14/2011 Historical Ophthalmology RST OPH Arron Patricio M.D. [address] [place], [place] [phone] (Wo rk) Social History [...] More than 4 times per year 04/09/2022 faith services? Do you belong to any clubs [...] Waldenstrom macroglobulinemia CDM Reports - EYEGEN Id: [id number] Status: Fnl documented in this encounter Plan of Treatment Not on filedocumented as of this encounter Visit Diagnoses Not on filedocumented in this encounter Care Teams Scientologist Relationship Specialty Start Date End Date Elsewhere, Pcp PCP - General Family Medicine 03/04/21 documented as of this encounter
--- OUTSIDE RECORDS SUMMARY | 2022-07-11 01:17 | XMS_ITS | Encounter Summary ---
:1945 Author Organization [facility] Address [address] [place] [address] Care Team Providers Name Role Phone Unavailable [...] or relatives? How often do you attend yarsanism or More than 4 times per year 04/09/2022 restorationism services? Do you belong to any clubs or Yes 04/09/2022 organizations such as yarsanism groups, unions, fraternal or athletic groups, or [...]
--- OUTSIDE RECORDS SUMMARY | 2022-07-11 01:17 | XMS_ITS | Encounter Summary ---
:1945 Author Organization [facility] Address [address] [place] [address] Care Team Providers Name Role Phone Elsewhere, Pcp Primary Care Provider Unavailable Encounter Details Date Type Department Care Team Description 02/07/2012 Historical Ophthalmology RST OPH Arron Patricio M.D. [address] [place], [place] [phone] (Wo rk) Social History [...] eye #2 Waldenstrom macroglobulinemia CDM Reports - [facility] Id: [id number] Status: Fnl documented in this encounter Plan of Treatment Not on filedocumented as of this encounter Visit Diagnoses Not on filedocumented in this encounter Care Teams Software Lead Relationship Specialty Start Date End Date Elsewhere, Pcp PCP - General Family Medicine 03/04/21 documented as of this encounter
--- OUTSIDE RECORDS SUMMARY | 2022-07-11 01:17 | XMS_ITS | Encounter Summary ---
:1945 Author Organization [facility] Address [address] [place] [address] Care Team Providers Name Role Phone Unavailable Primary Care Provider Unavailable Encounter Details Date Type Department Care Team Description 12/28/2011 Hospital Encounter HX NO MAPPING Natividad Monte Phar m.D., R.Ph. [address] [place], [place] [phone] Social History Tobacco Use [...]
[2022-07-11 01:27] LABS: Basophils Absolute Auto 0.01 K/uL (0.00-0.30); Basophils Percent Auto 0.2 % (0.0-3.0); Eosinophils Absolute Auto 0.16 K/uL (0.00-0.50); Eosinophils Percent Auto 3.1 % (0.0-7.0); Hematocrit 39.8 % (33.0-51.0); Hemoglobin* 13.2 gm/dL (12.0-16.0); Immature Granulocytes Abs Auto 0.01 K/uL (0.00-0.30); Immature Granulocytes Pct Auto 0.2 %; Lymphocytes Percent Auto 15.9 % (20-44); Mean Corpuscular HGB Conc 33 gm/dL (32-36); Mean Corpuscular Hemoglobin 29 pg (26-34); Mean Corpuscular Volume 88 fL (80-100); Monocytes Percent Auto 7.5 % (0.0-11.0); Neutrophils Percent Auto 73.1 % (42.0-72.0); Platelet Count* 249 K/uL (140-440); Red Blood Count 4.53 m/uL (4.00-5.20); White Blood Count* 5.17 K/uL (4.50-11.00)
[2022-07-11 01:32] LABS: SARS PCR* POSITIVE SARS-CoV-2 (Negative)
[2022-07-11 01:33] LABS: Slide Review Reflex No
[2022-07-11 01:40] LABS: Albumin* 4.4 g/dL (3.3-5.0); Chloride* 100 mmol/L (96-114); Sodium* 137 mmol/L (135-149)
[2022-07-11 01:41] LABS: RBC Urine 0-2 (0-2); WBC Urine 0-2 (0-5)
[2022-07-11 01:41] LABS: Potassium* 3.7 mmol/L (3.6-5.1)
[2022-07-11 01:43] LABS: Bilirubin Total* 0.5 mg/dL (0.1-1.5); Creatinine* 0.6 mg/dL (0.5-1.5); Est. Creatinine Clearance* 48.92; Estimated Glomerular Filt Rate 92 ml/min
[2022-07-11 01:44] LABS: Alanine Aminotransferase* 29 U/L (4-35); Alkaline Phosphatase* 70 U/L (40-150); Aspartate Amino Transferase* 27 U/L (12-35); Blood Urea Nitrogen* 18 mg/dL (7-30); Calcium* 8.8 mg/dL (8.4-10.6); Carbon Dioxide* 30 mmol/L (20-32); Glucose* 126 mg/dL (60-115); Total Protein* 7.7 g/dL (6.0-8.3)
[2022-07-11 01:53] LABS: C Reactive Protein* < 0.5 mg/dL (0.5-1.0)
[2022-07-11] MEDS: ASPIRIN 81 MG TAB.CHEW 324 MG PO (01:55)
[2022-07-11 01:59] LABS: Troponin I* < 0.01 ng/mL (0.01-0.04)
[2022-07-11 02:48] LABS: SARS Antigen* Negative (Negative)
--- NOTE | 2022-07-11 04:38 | ED.NURSE ---
pt states no change in tingle/numb in R side, up to bathroom then back to bed.
--- NOTE | 2022-07-11 06:24 | ED.NURSE ---
pt up in bed, denies any changes in neuro status.
--- NOTE | 2022-07-11 08:18 | CRLHL7_ITS ---
For Patients: As a result of the Century Cures Act, medical imaging exams and procedure reports are released immediately into your electronic medical record. You may view this report before your referring provider. If you have questions, please contact your health care provider. INDICATION: Right arm and leg weakness. Tingling. TECHNIQUE: Multiplanar multisequence noncontrast MR images acquired through the brain. COMPARISON: CT brain 07/10/2022. FINDINGS: Prominence of the ventricles and sulci compatible with minimal diffuse cerebral volume loss. No mass effect or midline shift. Patchy T2 FLAIR hyperintensities in the supratentorial white matter and renetta, typical for moderate chronic microvascular ischemic changes. Chronic lacunar infarctions in the bilateral basal ganglia, thalami, and right cerebellar hemisphere. No diffusion restriction to suggest acute infarction. No recent intracranial hemorrhage or pathologic extra-axial fluid collection. The major arterial flow voids of the skullbase are preserved. Thinning of the ocular lenses. The left maxillary sinus is severely opacified secondary to mucosal thickening and aerated secretions. Trace mastoid fluid bilaterally. IMPRESSION: 1. No acute infarction, mass effect, or intracranial hemorrhage. 2. Moderate chronic microvascular changes with superimposed chronic lacunar infarctions in the bilateral basal ganglia, thalami, and right cerebellar hemisphere. 3. Severe left maxillary sinus opacification secondary to mucosal thickening and aerated secretions. Findings can be seen in the setting of acute sinusitis. Dictated by Fred Sahu MD @ 07/11/2022 10:37:25 AM (Electronically Signed)
== END 2022-07-11 11:30 | disposition home or self-care (01) ==
PROVIDERS: Family Medicine; Emergency Provider Family Medicine; PCP Internal Medicine
DX: R20.2 Paresthesia of skin (principal); Z85.79 Personal history of other malignant neoplasms of lymphoid, hematopoietic and related tissues
CPT/HCPCS: 36415; 70450; 70551; 80053; 81001; 84484; 85025; 86140; 87426; 87635; 93005; 99284; 99285; A9270

== ENCOUNTER 2022-07-13 08:21 | Outpatient (CLI) | payer MEDICARE, BC, SELFPAY ==
--- OUTSIDE RECORDS SUMMARY | 2022-07-13 09:05 | XMS_ITS | Clinical Summary ---
:1945 Author Organization [facility] [place] [address] Care Team Providers Name Role Phone Brijesh [...] Comments Blood Pressure 158/79 08/31/2014 2:51 PM FOUNDRY WORKER APPRENTICE Pulse 76 08/31/2014 2:51 PM FOUNDRY WORKER APPRENTICE Temperature 36.8 ??C (98.2 ??F) 08/31/2014 2:51 PM FOUNDRY WORKER APPRENTICE Respiratory Rate - - Oxygen Saturation 97% 08/31/2014 2:51 PM FOUNDRY WORKER APPRENTICE Inhaled Oxygen Concentration - - Weight 71.7 kg (158 lb) 08/31/2014 2:51 PM FOUNDRY WORKER APPRENTICE Height 165.1 cm (5' 5) 07/11/2009 8:05 AM FOUNDRY WORKER APPRENTICE Body Mass Index 26.29 07/11/2009 8:05 AM FOUNDRY WORKER APPRENTICE Plan of Treatment Health Maintenance Due Date [...] Type Group BLUE CROSS MR BLUE CROSS [id number] 2014-Giselle GOMEZ [id number] [place] [employer] [place] BLUE MR luma [facility] [place], [place] PB ONLY [phone] (Work) [address] Care Teams Carry In Worker Relationship Specialty Start Date End Date Brijesh eKn MD PCP - General 08/31/141999 [place] [address]
--- OUTSIDE RECORDS SUMMARY | 2022-07-13 09:05 | XMS_ITS | Encounter Summary ---
:1945 Author Organization [facility] Address [address] [place] [address] Care Team Providers Name Role Phone Elsewhere, [...] on filedocumented in this encounter Care Teams Cable Tender Relationship Specialty Start Date End Date Elsewhere, Pcp PCP - General Family Medicine 03/04/21 documented as of this encounter
--- OUTSIDE RECORDS SUMMARY | 2022-07-13 09:05 | XMS_ITS | Clinical Summary ---
:1945 Author Organization [facility] Address [address] [place] [address] Care Team Providers Name Role Phone Elsewhere, Pcp Primary Care Provider Unavailable Source Comments Patient records contain information from all sites at [facility]. For routine questions regarding patient records, call [phone] during business hours, M-F 8:00 AM - 5:00 PM Central Time. Record requests for emergency care only can be directed to [phone] at any time.[facility] Allergies No known active allergies Medications [...] Completed 12/14/2021 Medical Devices Implanted Type Area Horse Wrangler Device Shelf Model / Identifier Expiration Serial / Date Lot Breast Other Breast Right: Other Breast Description: Marker Conversions - Default Historical Implant Device Mesh or Patch Abdomen Implanted: 11/04/2016 (Quantity not on file) Description: Body Location - Abdominal. Device Status Text - MeshPatch. Lens Nasir 17.0d X 6.0mm - [id number] Ocular Lens Other/Leg acy - See [facility] Implanted: Qty: 1 on 10/23/2014 Implant Description Description: Device Horse Wrangler - [employer]. Body Location - Other. Left. Device Status Text - [id number]. Lens Tcn [id number] Bicnvx +17.5d - [id number] - [id number] Ocular Lens Right: Eye [employer] 11/02/2024 [id number] / Implanted: Qty: 1 on 03/04/2021 by Arron Patricio M.D. at [facility] (Previously GUY) [id number] / Procedures Procedure Name Priority Date/Time Associated [...] e / Group Dates MEDICARE MEDICARE A [id number] 2009-Pres [address] [place] [address] BLUE CROSS BCBS [place] [id number] 2016-Pres [phone] PO SHRUTHI X Cost Share BLUE SHIELD BLUE COST ent [phone] [place] [address] Care Teams Egg Caser Relationship Specialty Start Date End Date Elsewhere, Pcp PCP - General Family Medicine 03/04/21
--- OUTSIDE RECORDS SUMMARY | 2022-07-13 09:06 | XMS_ITS | Encounter Summary ---
:1945 Author Organization [facility] Address [address] [place] [address] Care Team Providers Name Role Phone Elsewhere, Pcp Primary Care Provider Unavailable Encounter Details Date Type Department Care Team Description 09/07/2021 Hospital Department of [place] Waldenstrom's Encounter Laboratory Arturo Ricks, Macroglobul inemia (HCC) Medicine and M.D. Pathology, [place] [address] [place] [address] [facility] [address] [place] [phone] [place] [address] (Work) [place], [place] [phone] (Fax) [phone] Social History Tobacco Use Types Packs/Day Years [...] daily. 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 IMMUNOGLOBULIN FREE Routine 09/28/2021 10:25 Waldenstrom's Res ults for LIGHT CHAINS, S AM ENTERPRISE SOFTWARE ENGINEER Macroglobulinemia (HCC) t his procedure are in the results section. CBC WITH DIFFERENTIAL, Routine 09/28/2021 10:25 Waldenstrom's Results for B AM ENTERPRISE SOFTWARE ENGINEER Macroglobulinemia (HCC) this procedure are in the results section. IMMUNOGLOBULINS (IGG, Routine 09/28/2021 10:25 Waldenstrom's R esults for IGA, AND IGM), S AM ENTERPRISE SOFTWARE ENGINEER Macroglobulinemia (HCC) this procedure are in the results section. LACTATE DEHYDROGENASE Routine 09/28/2021 10:25 Waldenstrom's R esults for (LD), S AM ENTERPRISE SOFTWARE ENGINEER Macroglobulinemia (HCC) this procedure are in the results section. COMPREHENSIVE Routine 09/28/2021 10:25 Waldenstrom's Results f or METABOLIC PANEL, S/P AM ENTERPRISE SOFTWARE ENGINEER Macroglobulinemia (H CC) this procedure are in the results section. documented in this encounter Results (ABNORMAL) Monoclonal Gammopathy Monitoring (09/28/2021 10:25 AM ENTERPRISE SOFTWARE ENGINEER) [facility] Method Time Signature Therapeutic No 09/30/2021 SD[facility] Antibody 6:07 AM ENTERPRISE SOFTWARE ENGINEER Administered? Total Protein, S 7.1 6.3 - 7.9 09/30/2021 [facility] g/dL 8:37 AM ENTERPRISE SOFTWARE ENGINEER Albumin 3.8 3.4 - 4.7 09/30/2021 [facility] g/dL 3:00 PM ENTERPRISE SOFTWARE ENGINEER Alpha-1 Globulin 0.3 0.1 - 0.3 09/30/2021 [facility] g/dL 3:00 PM ENTERPRISE SOFTWARE ENGINEER Alpha-2 Globulin 1.0 0.6 - 1.0 09/30/2021 [facility] g/dL 3:00 PM ENTERPRISE SOFTWARE ENGINEER Beta-Globulin 0.9 0.7 - 1.2 09/30/2021 [facility] g/dL 3:00 PM ENTERPRISE SOFTWARE ENGINEER Gamma-Globulin 1.1 0.6 - 1.6 09/30/2021 [facility] g/dL 3:00 PM ENTERPRISE SOFTWARE ENGINEER A/G Ratio 1.12 09/30/2021 [facility] 3:00 PM ENTERPRISE SOFTWARE ENGINEER M spike 0.9 (H) g/dL 09/30/2021 [facility] 3:00 PM ENTERPRISE SOFTWARE ENGINEER Impression M-spike in 09/30/2021 [facility] gamma 3:00 PM ENTERPRISE SOFTWARE ENGINEER fraction. Specimen Anatomical Collection Method Collection Time Receive d Time (Source) Location / / Volume Laterality Blood (Blood, 09/28/2021 10:25 09/30/2021 6:07 Venous) AM ENTERPRISE SOFTWARE ENGINEER AM ENTERPRISE SOFTWARE ENGINEER Resulting Agency Comment Mailed In Specimen Arturo Ricks M.D. LAB BLOOD ADD-ON Performing Organization Address City/State/ZIP Code Phon e Number [facility] [address] [place] [address] SUPPORT CENTER [facility] [place] [address] Laboratory Medicine and Pathology [address] [place] (ABNORMAL) Immunoglobulins (IgG, IgA, and IgM) (09/28/2021 10:25 AM ENTERPRISE SOFTWARE ENGINEER) Patholo gist Method Time Signature Immunoglobulin A 30 (L) 61 - 356 09/29/2021 [facility] (IgA), S mg/dL 5:38 PM ENTERPRISE SOFTWARE ENGINEER Immunoglobulin M 1230 (H) 37 - 286 09/29/2021 [facility] (IgM), S mg/dL 6:07 PM ENTERPRISE SOFTWARE ENGINEER Immunoglobulin G 301 (L) 767 - 09/29/2021 [facility] (IgG), S 1590 5:39 PM ENTERPRISE SOFTWARE ENGINEER mg/dL Specimen Anatomical Collection Method Collection Time Receive d Time (Source) Location / / Volume Laterality Blood (Blood, 09/28/2021 10:25 09/29/2021 4:22 Venous) AM ENTERPRISE SOFTWARE ENGINEER PM ENTERPRISE SOFTWARE ENGINEER Resulting Agency Comment Mailed In Specimen Arturo Ricks M.D. LAB BLOOD ADD-ON Performing Organization Address City/State/ZIP Code Phon e Number [facility] [address] [place] [address] SUPPORT [facility] [address] Laboratory Medicine and Pathology [address] [place] [address] Dr. NATH (ABNORMAL) Immunoglobulin Free Light Chains (09/28/2021 10:25 AM ENTERPRISE SOFTWARE ENGINEER) Analysis Performed At Patho logist Time Signature [place] Free 2.60 (H) 0.3300 - 09/29/2021 SDSC Light Chain, S 1.94 mg/dL 5:18 PM ENTERPRISE SOFTWARE ENGINEER Lambda Free 0.4200 (L) 0.5700 - 09/29/2021 SD[facility] Light Chain, S 2.63 mg/dL 5:34 PM ENTERPRISE SOFTWARE ENGINEER [place]/Lambda 6.19 (H) 0.2600 - 09/29/2021 [facility] FLC Ratio 1.65 5:34 PM ENTERPRISE SOFTWARE ENGINEER Specimen Anatomical Collection Method Collection Time Receive d Time (Source) Location / / Volume Laterality Blood (Blood, 09/28/2021 10:25 09/29/2021 4:22 Venous) AM ENTERPRISE SOFTWARE ENGINEER PM ENTERPRISE SOFTWARE ENGINEER Resulting Agency Comment Mailed In Specimen Arturo Ricks M.D. LAB BLOOD ADD-ON Performing Organization Address City/[facility]/ZIP Code Phon e Number [facility] [address] [place] [address] SU[address] [facility] [address] Laboratory Medicine and Pathology [address] [place] [address] Dr. NATH LD (Lactate Dehydrogenase) (09/28/2021 10:25 AM ENTERPRISE SOFTWARE ENGINEER) Analysis Performed At Patho logis Time Signature Lactate 168 122 - 222 09/29/2021 DTL Dehydrogenase U/L 2:36 PM ENTERPRISE SOFTWARE ENGINEER (LD), S Specimen Anatomical Collection Method Collection Time Receive d Time (Source) Location / / Volume Laterality Blood (Blood, 09/28/2021 10:25 09/29/2021 Venous) AM ENTERPRISE SOFTWARE ENGINEER 12:43 PM ENTERPRISE SOFTWARE ENGINEER Resulting Agency Comment Mailed In Specimen Arturo Ricks M.D. LAB BLOOD NON ADD-ON Performing Organization Address City/State/ZIP Code Phon e Number [facility] - [address] [place], [place] [address] [facility] [place] [address] Laboratories-[facility] [address] (ABNORMAL) Comprehensive Metabolic Panel (09/28/2021 10:25 AM ENTERPRISE SOFTWARE ENGINEER) P athologist Signature Potassium, S 4.0 3.6 - 5.2 09/29/2021 DTL mmol/L 2:42 PM ENTERPRISE SOFTWARE ENGINEER Sodium, S 137 135 - 145 09/29/2021 DTL mmol/L 2:42 PM ENTERPRISE SOFTWARE ENGINEER Chloride, S 95 (L) 98 - 107 09/29/2021 DTL mmol/L 2:42 PM ENTERPRISE SOFTWARE ENGINEER Bicarbonate, S 27 22 - 29 09/29/2021 DTL mmol/L 2:42 PM ENTERPRISE SOFTWARE ENGINEER Anion Gap 15 7 - 15 09/29/2021 DTL 2:42 PM ENTERPRISE SOFTWARE ENGINEER BUN (Blood Urea 14 6 - 21 09/29/2021 DTL Nitrogen), S mg/dL 2:42 PM ENTERPRISE SOFTWARE ENGINEER Creatinine 0.71 0.59 - 09/29/2021 DTL 1.04 mg/dL 2:42 PM ENTERPRISE SOFTWARE ENGINEER eGFR-Non 83 >=60 09/29/2021 DTL Black/ mL/min/BSA 2:42 PM ENTERPRISE SOFTWARE ENGINEER [place] Comment: ----ADDITIONAL INFORMATION---- Estimated GFR calculated using the 2009 CKD_EPI creatinine equation. eGFR-Black/ >90 >=60 mL/min/BSA 2021 2:42 PM ENTERPRISE SOFTWARE ENGINEER DTL Comment: ----ADDITIONAL INFORMATION---- Estimated GFR calculated using the 2009 CKD_EPI creatinine equation. Calcium, Total, S 9.5 8.8 - 10.2 mg/dL 09/29/2021 2:42 PM ENTERPRISE SOFTWARE ENGINEER DTL Glucose, S 99 70 - 140 mg/dL 09/29/2021 2:42 PM ENTERPRISE SOFTWARE ENGINEER D TL Protein, Total, S 7.2 6.3 - 7.9 g/dL 09/29/2021 2:42 P M ENTERPRISE SOFTWARE ENGINEER DTL Albumin, S 4.6 3.5 - 5.0 g/dL 09/29/2021 2:42 PM ENTERPRISE SOFTWARE ENGINEER D TL Aspartate Aminotransferase (AST), 23 8 - 43 U/L 09/29 2:42 PM ENTERPRISE SOFTWARE ENGINEER DTL S Alkaline Phosphatase, S 80 35 - 104 U/L 09/29/2021 2: 42 PM ENTERPRISE SOFTWARE ENGINEER DTL Alanine Aminotransferase (ALT), S 24 7 - 45 U/L 09/29 2:42 PM ENTERPRISE SOFTWARE ENGINEER DTL Bilirubin, Total, S 0.8 <=1.2 mg/dL 09/29/2021 2:42 PM ENTERPRISE SOFTWARE ENGINEER DTL Specimen Anatomical Collection Method Collection Time Receive d Time (Source) Location / / Volume Laterality Blood (Blood, 09/28/2021 10:25 09/29/2021 Venous) AM ENTERPRISE SOFTWARE ENGINEER 12:43 PM ENTERPRISE SOFTWARE ENGINEER Resulting Agency Comment Mailed In Specimen Arturo Ricks M.D. LAB BLOOD ADD-ON Performing Organization Address City/State/ZIP Code Phon e Number [facility] - [address] [place], [place] [address] [facility] [place] [place] [address] Laboratories-[facility] [address] [facility] (ABNORMAL) CBC with Differential, Blood (09/28/2021 10:25 AM ENTERPRISE SOFTWARE ENGINEER) [facility] gist Method Time Signature Hemoglobin 14.5 11.6 - 09/29/2021 DTL 15.0 g/dL 2:15 PM ENTERPRISE SOFTWARE ENGINEER Hematocrit 42.1 35.5 - 09/29/2021 DTL 44.9 % 2:15 PM ENTERPRISE SOFTWARE ENGINEER Erythrocytes 4.79 3.92 - 09/29/2021 DTL 5.13 2:15 PM ENTERPRISE SOFTWARE ENGINEER x10(12)/L MCV 87.9 78.2 - 09/29/2021 DTL 97.9 fL 2:15 PM ENTERPRISE SOFTWARE ENGINEER RBC Distrib Width 13.2 12.2 - 09/29/2021 DTL 16.1 % 2:15 PM ENTERPRISE SOFTWARE ENGINEER Platelet Count 269 157 - 371 09/29/2021 DTL x10(9)/L 2:15 PM ENTERPRISE SOFTWARE ENGINEER Leukocytes 3.4 3.4 - 9.6 09/29/2021 DTL x10(9)/L 2:15 PM ENTERPRISE SOFTWARE ENGINEER Neutrophils 2.26 1.56 - 09/29/2021 DTL 6.45 2:15 PM ENTERPRISE SOFTWARE ENGINEER x10(9)/L Lymphocytes 0.59 (L) 0.95 - 09/29/2021 DTL 3.07 2:15 PM ENTERPRISE SOFTWARE ENGINEER x10(9)/L Monocytes 0.38 0.26 - 09/29/2021 DTL 0.81 2:15 PM ENTERPRISE SOFTWARE ENGINEER x10(9)/L Eosinophils 0.12 0.03 - 09/29/2021 DTL 0.48 2:15 PM ENTERPRISE SOFTWARE ENGINEER x10(9)/L Basophils <0.03 0.01 - 09/29/2021 DTL 0.08 2:15 PM ENTERPRISE SOFTWARE ENGINEER x10(9)/L Specimen Anatomical Collection Method Collection Time Receive d Time (Source) Location / / Volume Laterality Blood (Blood, 09/28/2021 10:25 09/29/2021 Venous) AM ENTERPRISE SOFTWARE ENGINEER 12:43 PM ENTERPRISE SOFTWARE ENGINEER Resulting Agency Comment Mailed In Specimen Arturo Ricks M.D. LAB BLOOD ADD-ON Performing Organization Address City/State/ZIP Code Phon e Number [facility] - [address] [place], [place] [address] [facility] [place] [place] [address] [facility] [address] documented in this encounter Visit Diagnoses Diagnosis Waldenstrom's Macroglobulinemia (HCC) documented in this encounter Care Teams Laminator Relationship Specialty Start Date End Date Elsewhere, Pcp PCP - General Family Medicine 03/04/21 documented as of this encounter
--- OUTSIDE RECORDS SUMMARY | 2022-07-13 09:06 | XMS_ITS | Encounter Summary ---
:1945 Author Organization [facility] Address [address] [place] [address] Care Team Providers Name Role Phone Elsewhere, Pcp Primary Care Provider Unavailable Encounter Details Date Type Department Care Team Description 03/17/2022 Hospital Department of [place] Wal[place]strom's Encounter Laboratory Arturo Ricks, Macroglobul inemia (HCC) Medicine and M.D. Pathology, [place] [address] [place] [address] in [facility][1] [address] [place] [phone] [place] [address] (Work) [place], [place] [phone] [address] (Fax) [phone] Social History Tobacco Use Types Packs/Day Years [...] daily. 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) [employer] by [employer] TURMERIC ROOT EXTRACT Take 1 tablet by [...] Analysis Performed At Patho logist Time Signature [place] Free 2.58 (H) 0.3300 - 04/08/2022 [facility] Light Chain, S 1.94 mg/dL 10:03 AM CDT Lambda Free 0.4300 (L) 0.5700 - 04/08/2022 SD[facility] Light Chain, S 2.63 mg/dL 10:18 AM CDT [place]/Lambda 6.00 (H) 0.2600 - 04/08/2022 [facility] FLC Ratio 1.65 10:18 AM CDT Specimen Anatomical Collection Method Collection Time Receive d Time (Source) Location / / Volume Laterality Blood (Blood, 04/07/2022 8:15 AM 04/08/20 22 6:23 Venous) CDT AM CDT Resulting Agency Comment Mailed In Specimen Arturo Ricks M.D. LAB BLOOD ADD-ON Performing Organization Address City/State/ZIP Code Phon e Number [facility] [address] [place], [place] [address] SUPPORT CENTER [facility] [place] [address] Laboratory Medicine and Pathology [address] [...] BLOOD ADD-ON Performing Organization Address City/[facility]/ZIP Code Phon e Number [facility] [address] [place], [place] [address] SUPPORT [facility]ENTER [place] [address] Laboratory Medicine and Pathology [address] [...] City/State/ZIP Code Phon e Number [facility] - [address] [place], [place] [address] [place] [address] [facility] [address] (ABNORMAL) Comprehensive Metabolic [...] 04/07/2022 DTL Black/ mL/min/BSA 8:03 PM CDT [place] Comment: ----ADDITIONAL INFORMATION---- Estimated GFR calculated using [...] City/State/ZIP Code Phon e Number [facility] - [address] [place], [place] [address] [facility] [place] [address] [facility] [address] [facility] (ABNORMAL) CBC with Differential, Blood (04/07/2022 8:15 AM CDT) [facility] [place] gist Method Time Signature Hemoglobin 13.0 11.6 [...] City/State/ZIP Code Phon e Number [facility] - [address] [place], [place] [address] [facility] [place] [place] [address] [facility] [address] documented in this encounter Visit Diagnoses Diagnosis Waldenstrom's Macroglobulinemia (HCC) documented in this encounter Care Teams Container Packer Operator Relationship Specialty Start Date End Date Elsewhere, Pcp PCP - General Family Medicine 03/04/21 documented as of this encounter
--- OUTSIDE RECORDS SUMMARY | 2022-07-13 09:06 | XMS_ITS | Encounter Summary ---
:1945 Author Organization [facility] Address [address] [place] [address] Care Team Providers Name Role Phone Elsewhere, Pcp Primary Care Provider Unavailable Reason for Visit Reason Comments Intraocular Lens Implant Status Post Appointment Request (Routine) - Closed Specialty Diagnoses / Procedures Referred By Contact Refer red To Contact Ophthalmology Diagnoses Ptosis Eyelid Arron Patricio M.D. [address] [place] [phone] Referral ID Status Reason Start Date Expiration Date Visits Requ ested Visits Authorized [id number] Closed 11/05/2021 11/05/2022 1 Encounter Details Date Type Department Care Team Description 12/14/2021 Office Visit Department of Arron Patricio Blurred Visio yair Ophthalmology ar Knox M.D. (Primary Dx) [place], [place] [address] [place] [address] [place] [phone] [phone] Social History Tobacco Use Types Packs/Day Years [...] Primary documented in this encounter Care Teams Mineral Economist Relationship Specialty Start Date End Date Elsewhere, Pcp PCP - General Family Medicine 03/04/21 documented as of this encounter
--- OUTSIDE RECORDS SUMMARY | 2022-07-13 09:06 | XMS_ITS | Encounter Summary ---
:1945 Author Organization [facility] Address [address] [place] [address] Care Team Providers Name Role Phone Elsewhere, Pcp Primary Care Provider Unavailable Encounter Details Date Type Department Care Team Description 04/19/2022 Orders Only Division of Daisy López's Hematology in A, R.N. Macroglobulinemia (HCC) [place], [place] [address] [place] [address] (Primary Dx) [address] [place] [phone] Social History Tobacco Use Types Packs/Day Years [...] Primary documented in this encounter Care Teams Shove Up Relationship Specialty Start Date End Date Elsewhere, Pcp PCP - General Family Medicine 03/04/21 documented as of this encounter
--- OUTSIDE RECORDS SUMMARY | 2022-07-13 09:06 | XMS_ITS | Encounter Summary ---
:1945 Author Organization [facility] Address [address] [place] [address] Care Team Providers Name Role Phone Elsewhere, Pcp Primary Care Provider Unavailable Reason for Visit Appointment Request (Routine) - Closed Specialty Diagnoses / Procedures Referred By Contact Refer red To Contact Ophthalmology Diagnoses Eye Examination Normal Arron Patricio M.D. [address] [place] [address] Referral ID Status Reason Start Date Expiration Date Visits Requ ested Visits Authorized [id number] Closed 07/01/2021 07/01/2022 1 1 Encounter Details Date Type Department Care Team Description 07/03/2021 Comprehensive Visit Department of Wing Lana Peter, Refract ion Disorder Ophthalmology in O.D. (Primary Dx) [place], [place] [address] [place] [address] [address] [place] [address] [phone] Social History Tobacco Use Types Packs/Day Years [...] develop new concerns with her left eye. NING ROOM OPERATOR documented in this encounter Plan of Treatment Not on filedocumented as of this encounter Visit Diagnoses Diagnosis Refraction Disorder - Primary documented in this encounter Care Teams Infusion Rn Relationship Specialty Start Date End Date Elsewhere, Pcp PCP - General Family Medicine 03/04/21 documented as of this encounter
--- OUTSIDE RECORDS SUMMARY | 2022-07-13 09:06 | XMS_ITS | Encounter Summary ---
:1945 Author Organization [facility] Address [address] [place] [address] Care Team Providers Name Role Phone Elsewhere, Pcp Primary Care Provider Unavailable Encounter Details Date Type Department Care Team Description 10/28/2021 Orders Only Division of [place] [facility] H[facility] in Arturo Ricks, Macroglobu samaria (HCC) Ana Castillo (Primary Dx) [place] [address] [place] [address] [address] [place] [phone] Social History Tobacco Use Types Packs/Day Years [...] Analysis Performed At Patho logist Time Signature [place] Free 2.58 (H) 0.3300 - 04/08/2022 [facility] Light Chain, S 1.94 mg/dL 10:03 AM CDT [place] Free 0.4300 (L) 0.5700 - 04/08/2022 [facility] Light Chain, S 2.63 mg/dL 10:18 AM CDT [place]/Lambda 6.00 (H) 0.2600 - 04/08/2022 [facility] FLC Ratio 1.65 10:18 AM CDT Specimen Anatomical Collection Method Collection Time Receive d Time (Source) Location / / Volume Laterality Blood (Blood, 04/07/2022 8:15 AM 04/08/20 6:23 Venous) CDT AM CDT Resulting Agency Comment Mailed In Specimen Arturo Ricks M.D. LAB BLOOD ADD-ON Performing Organization Address City/State/ZIP Code Phon e Number [facility] [address] [place], [place] [address] SUPPORT CENTER [facility] [place] [address] Laboratory Medicine and Pathology [address] [place] (ABNORMAL) Electrophoresis, Protein (04/07/2022 8:15 AM CDT) [facility] gist Method Time Signature Total Protein, 6.7 [...] Organization Address City/State/ZIP Code Phon e Number [facility] [address] [place], [place] [address] SUPPORT CENTER [facility] [place] [address] Laboratory Medicine and Pathology [address] [...] Organization Address City/State/ZIP Code Phon e Number [facility] - [address] [place], [place] [address] [facility] [address] [facility] [address] [facility] (ABNORMAL) Comprehensive Metabolic Panel (04/07/2022 8:15 [...] 04/07/2022 DTL Black/ mL/min/BSA 8:03 PM CDT Icelandic Comment: ----ADDITIONAL INFORMATION---- Estimated GFR calculated using [...] Organization Address City/State/ZIP Code Phon e Number [facility] - [address] [place] [address] [facility] [place] [address] [facility] 200 [facility] (ABNORMAL) CBC with Differential, Blood (04/07/2022 8:15 AM CDT) [facility] gist Method Time Signature Hemoglobin 13.0 11.6 [...] Organization Address City/State/ZIP Code Phon e Number [facility] - [address] [place], [place] [address] [facility] [place] [address] [facility] [address] documented in this encounter Visit Diagnoses Diagnosis Waldenstrom's Macroglobulinemia (HCC) - Primary documented in this encounter Care Teams Sampler Radioactive Waste Relationship Specialty Start Date End Date Elsewhere, Pcp PCP - General Family Medicine 03/04/21 documented as of this encounter
--- OUTSIDE RECORDS SUMMARY | 2022-07-13 09:06 | XMS_ITS | Encounter Summary ---
:1945 Author Organization [facility] Address [address] [place] [address] Care Team Providers Name Role Phone Elsewhere, Pcp Primary Care Provider Unavailable Reason for Referral Outpatient (Routine) - Authorized Specialty Diagnoses / Procedures Referred By Contact Refer red To Contact Video Medicine Diagnoses Waldenstrom's Macroglobulinemia (HCC) [facility] Arturo Mckeon M.D. [address] [place] [address] Referral ID Status Reason Start Date Expiration Date Visits V isits Requested Authorized [id number] Authorized 04/16/2022 04/16/2023 1 1 Reason for Visit Outpatient (Routine) - Closed Specialty Diagnoses / Procedures Referred By Contact Refer red To Contact Video Medicine Diagnoses Waldenstrom's Macroglobulinemia (HCC) [facility] Arturo Mckeon M.D. [address] [place] [address] Referral ID Status Reason Start Date Expiration Date Visits Requ ested Visits Authorized [id number] Closed 10/06/2021 10/06/2022 1 1 Encounter Details Date Type Department Care Team Description 04/16/2022 Telemedicine Division of [facility] in Arturo Ricks, Macroglobu linemia (HCC) Ana Castillo [place] [address] [facility] [address] [place] [phone] Social History Tobacco Use Types Packs/Day Years [...] audio/video technology by Soraya Ricks M.D. in [facility] to the patient in Patient's Home HISTORY OF PRESENT ILLNESS Patient is a 76 y.o. woman with Waldentrom's macroglobulinemia whose hematological history may be summarized as follows: 1. 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 [id number]: Treated with rituximab, intermittently, totaling 10 different [...] shows M spike of 0.8,stable from prior. [place] free light chain is 2.6 with a [...] labs locally and send to [facility] as a mail in. I will [...] (HCC) documented in this encounter Care Teams Religious Leader Relationship Specialty Start Date End Date Elsewhere, Pcp PCP - General Family Medicine 03/04/21 documented as of this encounter
--- OUTSIDE RECORDS SUMMARY | 2022-07-13 09:06 | XMS_ITS | Encounter Summary ---
:1945 Author Organization [facility] Address [address] [place] [address] Care Team Providers Name Role Phone Elsewhere, [...] or relatives? How often do you attend buddhist or More than 4 times per year 04/09/2022 sikh services? Do you belong to any clubs or Yes 04/09/2022 organizations such as buddhist groups, unions, fraternal or athletic groups, or [...] on filedocumented in this encounter Care Teams Medical Researcher Relationship Specialty Start Date End Date Elsewhere, Pcp PCP - General Family Medicine 03/04/21 documented as of this encounter
--- OUTSIDE RECORDS SUMMARY | 2022-07-13 09:06 | XMS_ITS | Encounter Summary ---
:1945 Author Organization [facility] Address [address] [place] [address] Care Team Providers Name Role Phone Elsewhere, Pcp Primary Care Provider Unavailable Encounter Details Date Type Department Care Team Description 09/28/2021 Clinical Communication Division of Kevin Ricks , Hematology in Arturo Mckeon M.D. [place], [place] [address] [place] [address] [address] [place] [phone] Social History Tobacco Use Types Packs/Day Years [...] on filedocumented in this encounter Care Teams Epic Stork Specialists Relationship Specialty Start Date End Date Elsewhere, Pcp PCP - General Family Medicine 03/04/21 documented as of this encounter
--- OUTSIDE RECORDS SUMMARY | 2022-07-13 09:06 | XMS_ITS | Encounter Summary ---
:1945 Author Organization [facility] Address [address] [place] [address] Care Team Providers Name Role Phone Elsewhere, Pcp Primary Care Provider Unavailable Encounter Details Date Type Department Care Team Description 11/05/2021 Clinical Communication Department of Arron Patricio Ophthalmology ar Knox M.D. [place], [place] [address] [place] [address] [address] [place] [phone] Social History Tobacco Use Types Packs/Day Years [...] for Dr Patricio Lymphoma, ptosis lid Per OLIVER FILTER OPERATOR: Slit lamp photos Thanks documented in this [...] (HCC) documented in this encounter Care Teams Multimedia Assistant Relationship Specialty Start Date End Date Elsewhere, Pcp PCP - General Family Medicine 03/04/21 documented as of this encounter
--- OUTSIDE RECORDS SUMMARY | 2022-07-13 09:06 | XMS_ITS | Encounter Summary ---
:1945 Author Organization [facility] Address [address] [place] [address] Care Team Providers Name Role Phone Elsewhere, Pcp Primary Care Provider Unavailable Reason for Visit Reason Comments D3 level Encounter Details Date Type Department Care Team Description 09/14/2021 Clinical Communication Division of Kevin Ricks , D3 level Hematology in Arturo Mckeon M.D. [place], [place] [address] [facility] [address] [place] [phone] [phone] Social History Tobacco Use Types Packs/Day Years [...] CST Sent a treatment letter to the [facility] to add to Mail out labs. [employer] Telephone Encounter - Mary Jo Michelle - 09/14/2021 1:20 PM CST Pt called and is wondering if you could order a D3 level with the blood tests that are coming up. Phone; [phone] [employer] documented in this encounter Plan of Treatment Not on filedocumented as of this encounter Visit Diagnoses Not on filedocumented in this encounter Care Teams Senior Talent Management Consultant Relationship Specialty Start Date End Date Elsewhere, Pcp PCP - General Family Medicine 03/04/21 documented as of this encounter
--- OUTSIDE RECORDS SUMMARY | 2022-07-13 09:06 | XMS_ITS | Encounter Summary ---
:1945 Author Organization [facility] Address [address] [place] [address] Care Team Providers Name Role Phone Elsewhere, Pcp Primary Care Provider Unavailable Reason for Visit Reason Comments appt/insurance coverage Encounter Details Date Type Department Care Team Description 04/23/2021 Clinical Department of Arron Patricio appt/insuranc e Communication Ophthalmology ar Knox M.D. coverage [place], [place] [address] [place] [address] [address] [place] [phone] Social History Tobacco Use Types Packs/Day Years [...] is covered for both? She had an corporate communications intern that day along w/provider so checking to see if entry was different. Insurance and Business office are stating they do not have correct info and/or wording on the appt. from ophthalmology. Try home number first: [phone] Cell 2nd: [phone] documented in this encounter Plan of Treatment Not on filedocumented as of this encounter Visit Diagnoses Not on filedocumented in this encounter Care Teams Scow Hand Relationship Specialty Start Date End Date Elsewhere, Pcp PCP - General Family Medicine 03/04/21 documented as of this encounter
--- OUTSIDE RECORDS SUMMARY | 2022-07-13 09:06 | XMS_ITS | Encounter Summary ---
:1945 Author Organization [facility] Address [address] [place] [address] Care Team Providers Name Role Phone Elsewhere, [...] on filedocumented in this encounter Care Teams Transportation Department Supervisor Relationship Specialty Start Date End Date Elsewhere, Pcp PCP - General Family Medicine 03/04/21 documented as of this encounter
--- OUTSIDE RECORDS SUMMARY | 2022-07-13 09:06 | XMS_ITS | Encounter Summary ---
:1945 Author Organization [facility] Address [address] [place] [address] Care Team Providers Name Role Phone Elsewhere, [...] on filedocumented in this encounter Care Teams Principal Statistical Scientist Relationship Specialty Start Date End Date Elsewhere, Pcp PCP - General Family Medicine 03/04/21 documented as of this encounter
--- OUTSIDE RECORDS SUMMARY | 2022-07-13 09:06 | XMS_ITS | Encounter Summary ---
:1945 Author Organization [facility] Address [address] [place] [address] Care Team Providers Name Role Phone Elsewhere, Pcp Primary Care Provider Unavailable Encounter Details Date Type Department Care Team Description 04/14/2021 Orders Only Division of Daisy López's Hematology in A, R.N. Macroglobulinemia (HCC) [place], [place] [address] [place] [address] (Primary Dx) [address] [place] [phone] Social History Tobacco Use Types Packs/Day Years [...] (ABNORMAL) Monoclonal Gammopathy Monitoring (09/28/2021 10:25 AM CONSTRUCTION IRONWORKER) [facility] Method Time Signature Therapeutic No 09/30/2021 [facility] Antibody 6:07 AM CONSTRUCTION IRONWORKER Administered? Total Protein, S 7.1 6.3 - 7.9 09/30/2021 [facility] g/dL 8:37 AM CONSTRUCTION IRONWORKER Albumin 3.8 3.4 - 4.7 09/30/2021 [facility] g/dL 3:00 PM CONSTRUCTION IRONWORKER Alpha-1 Globulin 0.3 0.1 - 0.3 09/30/2021 [facility] g/dL 3:00 PM CONSTRUCTION IRONWORKER Alpha-2 Globulin 1.0 0.6 - 1.0 09/30/2021 [facility] g/dL 3:00 PM CONSTRUCTION IRONWORKER Beta-Globulin 0.9 0.7 - 1.2 09/30/2021 [facility] g/dL 3:00 PM CONSTRUCTION IRONWORKER Gamma-Globulin 1.1 0.6 - 1.6 09/30/2021 [facility] g/dL 3:00 PM CONSTRUCTION IRONWORKER A/G Ratio 1.12 09/30/2021 [facility] 3:00 PM CONSTRUCTION IRONWORKER M spike 0.9 (H) g/dL 09/30/2021 [facility] 3:00 PM CONSTRUCTION IRONWORKER Impression M-spike in 09/30/2021 [facility] gamma 3:00 PM CONSTRUCTION IRONWORKER fraction. Specimen Anatomical Collection Method Collection Time Receive d Time (Source) Location / / Volume Laterality Blood (Blood, 09/28/2021 10:25 09/30/2021 6:07 Venous) AM CONSTRUCTION IRONWORKER AM CONSTRUCTION IRONWORKER Resulting Agency Comment Mailed In Specimen Arturo Ricks M.D. LAB BLOOD ADD-ON Performing Organization Address City/State/ZIP Code Phon e Number [facility] [address] [place] [address] SUPPORT [facility] [place] [address] Laboratory Medicine and Pathology [address] [place] [address] Dr. NATH (ABNORMAL) Immunoglobulins (IgG, IgA, and IgM) (09/28/2021 10:25 AM CONSTRUCTION IRONWORKER) Patholo gist Method Time Signature Immunoglobulin A 30 (L) 61 - 356 09/29/2021 [facility] (IgA), S mg/dL 5:38 PM CONSTRUCTION IRONWORKER Immunoglobulin M 1230 (H) 37 - 286 09/29/2021 [facility] (IgM), S mg/dL 6:07 PM CONSTRUCTION IRONWORKER Immunoglobulin G 301 (L) 767 - 09/29/2021 [facility] (IgG), S 1590 5:39 PM CONSTRUCTION IRONWORKER mg/dL Specimen Anatomical Collection Method Collection Time Receive d Time (Source) Location / / Volume Laterality Blood (Blood, 09/28/2021 10:25 09/29/2021 4:22 Venous) AM CONSTRUCTION IRONWORKER PM CONSTRUCTION IRONWORKER Resulting Agency Comment Mailed In Specimen Arturo Ricks M.D. LAB BLOOD ADD-ON Performing Organization Address City/[facility] Phon e Number [address] [place] [address] SUPPORT CENTER [facility] [place] [address] Laboratory Medicine and Pathology [address] [place] [address] Dr. NATH (ABNORMAL) Immunoglobulin Free Light Chains (09/28/2021 10:25 AM CONSTRUCTION IRONWORKER) Analysis Performed At Patho logist Time Signature [place] Free 2.60 (H) 0.3300 - 09/29/2021 [facility] Light Chain, S 1.94 mg/dL 5:18 PM CONSTRUCTION IRONWORKER Lambda Free 0.4200 (L) 0.5700 - 09/29/2021 [facility] Light Chain, S 2.63 mg/dL 5:34 PM CONSTRUCTION IRONWORKER [place]/Lambda 6.19 (H) 0.2600 - 09/29/2021 [facility] FLC Ratio 1.65 5:34 PM CONSTRUCTION IRONWORKER Specimen Anatomical Collection Method Collection Time Receive d Time (Source) Location / / Volume Laterality Blood (Blood, 09/28/2021 10:25 09/29/2021 4:22 Venous) AM CONSTRUCTION IRONWORKER PM CONSTRUCTION IRONWORKER Resulting Agency Comment Mailed In Specimen Arturo Ricks M.D. LAB BLOOD ADD-ON Performing Organization Address City/[facility]/ZIP Code Phon e Number [facility] [address] [place], [place] [address] SUPPORT CENTER [facility] [place] [address] Laboratory Medicine and Pathology [address] [place] LD (Lactate Dehydrogenase) (09/28/2021 10:25 AM CONSTRUCTION IRONWORKER) Analysis Performed At Patho logist Time Signature Lactate 168 122 - 222 09/29/2021 DTL Dehydrogenase U/L 2:36 PM CONSTRUCTION IRONWORKER (LD), S Specimen Anatomical Collection Method Collection Time Receive d Time (Source) Location / / Volume Laterality Blood (Blood, 09/28/2021 10:25 09/29/2021 Venous) AM CONSTRUCTION IRONWORKER 12:43 PM CONSTRUCTION IRONWORKER Resulting Agency Comment Mailed In Specimen Arturo Ricks M.D. LAB BLOOD NON ADD-ON Performing Organization Address City/[facility]/ZIP Code Phon e Number [facility] - [address] [place], [place] [address] [facility] [place] [address] [facility] 200 [facility] (ABNORMAL) Comprehensive Metabolic Panel (09/28/2021 10:25 AM CONSTRUCTION IRONWORKER) P athologist Signature Potassium, S 4.0 3.6 - 5.2 09/29/2021 DTL mmol/L 2:42 PM CONSTRUCTION IRONWORKER Sodium, S 137 135 - 145 09/29/2021 DTL mmol/L 2:42 PM CONSTRUCTION IRONWORKER Chloride, S 95 (L) 98 - 107 09/29/2021 DTL mmol/L 2:42 PM CONSTRUCTION IRONWORKER Bicarbonate, S 27 22 - 29 09/29/2021 DTL mmol/L 2:42 PM CONSTRUCTION IRONWORKER Anion Gap 15 7 - 15 09/29/2021 DTL 2:42 PM CONSTRUCTION IRONWORKER BUN (Blood Urea 14 6 - 21 09/29/2021 DTL Nitrogen), S mg/dL 2:42 PM CONSTRUCTION IRONWORKER Creatinine 0.71 0.59 - 09/29/2021 DTL 1.04 mg/dL 2:42 PM CONSTRUCTION IRONWORKER eGFR-Non 83 >=60 09/29/2021 DTL Black/ mL/min/BSA 2:42 PM CONSTRUCTION IRONWORKER [place] Citizen Comment: ----ADDITIONAL INFORMATION---- Estimated GFR calculated using the 2009 CKD_EPI creatinine equation. eGFR-Black/ >90 >=60 mL/min/BSA 2021 2:42 PM CONSTRUCTION IRONWORKER DTL Comment: ----ADDITIONAL INFORMATION---- Estimated GFR calculated using the 2009 CKD_EPI creatinine equation. Calcium, Total, S 9.5 8.8 - 10.2 mg/dL 09/29/2021 2:42 PM CONSTRUCTION IRONWORKER DTL Glucose, S 99 70 - 140 mg/dL 09/29/2021 2:42 PM CONSTRUCTION IRONWORKER D TL Protein, Total, S 7.2 6.3 - 7.9 g/dL 09/29/2021 2:42 P M CONSTRUCTION IRONWORKER DTL Albumin, S 4.6 3.5 - 5.0 g/dL 09/29/2021 2:42 PM CONSTRUCTION IRONWORKER D TL Aspartate Aminotransferase (AST), 23 8 - 43 U/L 09/29 2:42 PM CONSTRUCTION IRONWORKER DTL S Alkaline Phosphatase, S 80 35 - 104 U/L 09/29/2021 2: 42 PM CONSTRUCTION IRONWORKER DTL Alanine Aminotransferase (ALT), S 24 7 - 45 U/L 09/29 2:42 PM CONSTRUCTION IRONWORKER DTL Bilirubin, Total, S 0.8 <=1.2 mg/dL 09/29/2021 2:42 PM CONSTRUCTION IRONWORKER DTL Specimen Anatomical Collection Method Collection Time Receive d Time (Source) Location / / Volume Laterality Blood (Blood, 09/28/2021 10:25 09/29/2021 Venous) AM CONSTRUCTION IRONWORKER 12:43 PM CONSTRUCTION IRONWORKER Resulting Agency Comment Mailed In Specimen Arturo Ricks M.D. LAB BLOOD ADD-ON Performing Organization Address City/State/ZIP Code Phon e Number [facility] - [address] [place], [place] [address] [facility] [place] [address] [facility] [address] (ABNORMAL) CBC with Differential, Blood (09/28/2021 10:25 AM CONSTRUCTION IRONWORKER) Patholo gist Method Time Signature Hemoglobin 14.5 11.6 - 09/29/2021 DTL 15.0 g/dL 2:15 PM CONSTRUCTION IRONWORKER Hematocrit 42.1 35.5 - 09/29/2021 DTL 44.9 % 2:15 PM CONSTRUCTION IRONWORKER Erythrocytes 4.79 3.92 - 09/29/2021 DTL 5.13 2:15 PM CONSTRUCTION IRONWORKER x10(12)/L MCV 87.9 78.2 - 09/29/2021 DTL 97.9 fL 2:15 PM CONSTRUCTION IRONWORKER RBC Distrib Width 13.2 12.2 - 09/29/2021 DTL 16.1 % 2:15 PM CONSTRUCTION IRONWORKER Platelet Count 269 157 - 371 09/29/2021 DTL x10(9)/L 2:15 PM CONSTRUCTION IRONWORKER Leukocytes 3.4 3.4 - 9.6 09/29/2021 DTL x10(9)/L 2:15 PM CONSTRUCTION IRONWORKER Neutrophils 2.26 1.56 - 09/29/2021 DTL 6.45 2:15 PM CONSTRUCTION IRONWORKER x10(9)/L Lymphocytes 0.59 (L) 0.95 - 09/29/2021 DTL 3.07 2:15 PM CONSTRUCTION IRONWORKER x10(9)/L Monocytes 0.38 0.26 - 09/29/2021 DTL 0.81 2:15 PM CONSTRUCTION IRONWORKER x10(9)/L Eosinophils 0.12 0.03 - 09/29/2021 DTL 0.48 2:15 PM CONSTRUCTION IRONWORKER x10(9)/L Basophils <0.03 0.01 - 09/29/2021 DTL 0.08 2:15 PM CONSTRUCTION IRONWORKER x10(9)/L Specimen Anatomical Collection Method Collection Time Receive d Time (Source) Location / / Volume Laterality Blood (Blood, 09/28/2021 10:25 09/29/2021 Venous) AM CONSTRUCTION IRONWORKER 12:43 PM CONSTRUCTION IRONWORKER Resulting Agency Comment Mailed In Specimen Arturo Ricks M.D. LAB BLOOD ADD-ON Performing Organization Address City/State/ZIP Code Phon e Number [facility] - [address] [place], [place] [address] [facility] [place] [address] [facility] [address] documented in this encounter Visit Diagnoses Diagnosis Waldenstrom's Macroglobulinemia (HCC) - Primary documented in this encounter Care Teams Media Analytics Manager Relationship Specialty Start Date End Date Elsewhere, Pcp PCP - General Family Medicine 03/04/21 documented as of this encounter
--- OUTSIDE RECORDS SUMMARY | 2022-07-13 09:06 | XMS_ITS | Encounter Summary ---
:1945 Author Organization [facility] Address [address] [place] [address] Care Team Providers Name Role Phone Elsewhere, [...] on filedocumented in this encounter Care Teams Elevator Repairer Relationship Specialty Start Date End Date Elsewhere, Pcp PCP - General Family Medicine 03/04/21 documented as of this encounter
--- OUTSIDE RECORDS SUMMARY | 2022-07-13 09:06 | XMS_ITS | Encounter Summary ---
:1945 Author Organization [facility] Address [address] [place] [address] Care Team Providers Name Role Phone Elsewhere, Pcp Primary Care Provider Unavailable Reason for Visit Reason Comments Pre-visit Intake Intake Assessment Encounter Details Date Type Department Care Team Description 10/02/2021 Clinical Division of Kevin Pre-visit Tera hodges; Communication Hematology in Arturo Ricks, Intake As avery Castillo M.D. [place] [address] [place] [address] [address] [place] [phone] Social History Tobacco Use Types Packs/Day Years [...] More than 4 times per year 04/09/2022 sikhism services? Do you belong to any clubs [...] on filedocumented in this encounter Care Teams Laboratory Chemist Relationship Specialty Start Date End Date Elsewhere, Pcp PCP - General Family Medicine 03/04/21 documented as of this encounter
--- OUTSIDE RECORDS SUMMARY | 2022-07-13 09:06 | XMS_ITS | Encounter Summary ---
:1945 Author Organization [facility] Address [address] [place] [address] Care Team Providers Name Role Phone Elsewhere, Pcp Primary Care Provider Unavailable Reason for Referral Outpatient (Routine) - Closed Specialty Diagnoses / Procedures Referred By Contact Refer red To Contact Video Medicine Diagnoses Waldenstrom's Macroglobulinemia [facility]HCC[facility] Arturo Mckeon M.D. [address] [place] [address] Referral ID Status Reason Start Date Expiration Date Visits Requ ested Visits Authorized [id number] Closed 10/06/2021 10/06/2022 1 1 BOX ROUTEMAN Reason for Visit Appointment Request (Routine) - Closed Specialty Diagnoses / Procedures Referred By Contact Refer red To Contact Hematology Diagnoses Lymphoma (HCC) Referral ID Status Reason Start Date Expiration Date Visits Requ ested Visits Authorized [id number] Closed 07/23/2021 07/23/2022 1 1 Encounter Details Date Type Department Care Team Description 10/06/2021 Telemedicine Division of [facility] Waldenstrom's Hematology in Arturo Ricks Macroglobu linemia (HCC) [place] (Primary Dx) [place] [address] [facility] [address] [place] [phone] Social History Tobacco Use Types Packs/Day Years [...] More than 4 times per year 04/09/2022 gnosticism services? Do you belong to any clubs [...] audio/video technology by Soraya Ricks M.D. in [facility] to the patient in Patient's Home HISTORY OF PRESENT ILLNESS Patient is a 75 y.o. woman with Waldentrom's macroglobulinemia whose hematological history may be summarized as follows: 1. 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 [id number]: Treated with rituximab, intermittently, totaling 10 different [...] the serum shows M spike of 0.9. [place] free light chain is 2.6 with a [...] will do labs locally and send to [facility] as a mail in. I will [...] above. Signed by: Soraya Ricks M.D. 10/06/2021 BOX ROUTEMAN documented in this encounter Plan of Treatment Scheduled Referrals Name Type Priority Associated Diagnoses Order S chedule Video anyplace Outpatient Routine Waldenstrom's Expected: visit Referral Macroglobulinemia (HCC) 03/23 (Approximate), Expires: 01/03/2023 documented as of this encounter Visit Diagnoses Diagnosis Waldenstrom's Macroglobulinemia (HCC) - Primary documented in this encounter Care Teams Command And Control Officer Relationship Specialty Start Date End Date Elsewhere, Pcp PCP - General Family Medicine 03/04/21 documented as of this encounter
--- OUTSIDE RECORDS SUMMARY | 2022-07-13 09:06 | XMS_ITS | Encounter Summary ---
:1945 Author Organization [facility] Address [address] [place] [address] Care Team Providers Name Role Phone Elsewhere, Pcp Primary Care Provider Unavailable Encounter Details Date Type Department Care Team Description 12/14/2021 Ancillary Department of Arron Patricio Lymphoma Eye (HCC) Procedure Ophthalmology ar Knox M.D. [place], [place] [address] [place] [address] [address] [place] [address] [phone] Social History Tobacco Use Types Packs/Day Years [...] (HCC) documented in this encounter Care Teams Student Teaching Coordinator Relationship Specialty Start Date End Date Elsewhere, Pcp PCP - General Family Medicine 03/04/21 documented as of this encounter
--- OUTSIDE RECORDS SUMMARY | 2022-07-13 09:06 | XMS_ITS | Encounter Summary ---
:1945 Author Organization [facility] Address [address] [place] [address] Care Team Providers Name Role Phone Elsewhere, Pcp Primary Care Provider Unavailable Encounter Details Date Type Department Care Team Description 04/07/2021 [facility] Arturo Ricks, Macroglobul inemia (HCC) Medicine and M.D. Pathology, [place] [address] [place] [address] in [facility] [place] [address] [place] [phone] [place] [address] (Work) [place], [place] [phone] (Fax) [phone] Social History Tobacco Use Types Packs/Day Years [...] daily. 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) [employer] by 2can TURMERIC ROOT EXTRACT Take 1 tablet by [...] LAB BLOOD ADD-ON Performing Organization Address City/[facility] Phon e Number [facility] [address] [place], [place] [address] [facility] [place] [address] Laboratory Medicine and Pathology [address] [...] LAB BLOOD ADD-ON Performing Organization Address City/[facility]/ZIP [facility] Phon e Number [facility] - [address] [place], [place] [address] [facility] [place] [address] Laboratories-[facility] [address] Potassium (04/07/2021 8:04 [...] City/State/ZIP Code Phon e Number [facility] - [address] [place] [address] [facility] [place] [address] [address] (ABNORMAL) Monoclonal Gammopathy Monitoring (04/07/2021 8:04 [...] Organization Address City/State/ZIP Code Phon e Number [facility] [address] [place] [address] [facility] [place] [address] Laboratory Medicine and Pathology [address] [place] (ABNORMAL) Immunoglobulin Free Light Chains (04/07/2021 8:04 AM CDT) Analysis Performed At Patho logist Time Signature [place] Free 2.17 (H) 0.3300 - 04/07/2021 [facility] Light Chain, S 1.94 mg/dL 11:18 AM CDT Lambda Free 0.4200 (L) 0.5700 - 04/07/2021 [facility] Light Chain, S 2.63 mg/dL 11:33 AM CDT T[place]/Lambda 5.17 (H) 0.2600 - 04/07/2021 [facility] FLC Ratio 1.65 11:33 AM CDT Specimen Anatomical Collection Method Collection Time Receive d Time (Source) Location / / Volume Laterality Blood (Blood, 04/07/2021 8:04 AM 04/07/20 Venous) CDT 10:52 AM CDT Arturo Ricks M.D. LAB BLOOD ADD-ON Performing Organization Address City/State/ZIP Code Phon e Number [facility] [address] [place], [place] [address] [facility] [place] [address] Laboratory Medicine and Pathology [address] [place] [address] Dr. NATH Creatinine with Estimated GFR (04/07/2021 8:04 AM CDT) P athologist Signature Creatinine 0.69 0.59 - 04/07/2021 DTL 1.04 mg/dL 9:29 AM CDT eGFR-Non 85 >=60 04/07/2021 DTL Black/ mL/min/BSA 9:29 AM CDT [place]ese Comment: ----ADDITIONAL INFORMATION---- Estimated GFR calculated using the 2009 CKD_EPI creatinine equation. eGFR-Black/ >90 >=60 mL/min/BSA 2020 9:29 AM CDT DTL Comment: ----ADDITIONAL INFORMATION---- Estimated GFR calculated using the 2009 CKD_EPI creatinine equation. Specimen Anatomical Collection Method Collection Time Receive d Time (Source) Location / / Volume Laterality Blood (Blood, 04/07/2021 8:04 AM 04/07/20 8:58 Venous) CDT AM CDT Authorizing Provider Result aSmmi Ricks M.D. LAB BLOOD ADD-ON Performing Organization Address City/State/ZIP Code Phon e Number [facility] - [address] [place], [place] [address] [facility] [place] [address] [facility] [address] (ABNORMAL) CBC no call back, reflex T/S HGB <8 (04/07/2021 8:04 AM CDT) [facility] gist Method Time Signature Hemoglobin 13.0 11.6 [...] BLOOD NON ADD-ON Performing Organization Address City/[facility]/ZIP [facility] Phon e Number [facility] - 200 [place], [place] [address] [place] [address] [place] [phone] [address] Calcium, Total (04/07/2021 8:04 AM CDT) P athologist Signature Calcium, Total, 9.6 8.8 - 10.2 04/07/2021 DTL S mg/dL 9:29 AM CDT Specimen Anatomical Collection Method Collection Time Receive d Time (Source) Location / / Volume Laterality Blood (Blood, 04/07/2021 8:04 AM 04/07/20 8:58 Venous) CDT AM CDT Authorizing Provider Result Sammi Ricks M.D. LAB BLOOD ADD-ON Performing Organization Address City/[facility] Phon e Number [facility] - [address] [place], [place] [address] [facility] [place] [place] [address] AST (Aspartate Aminotransferase) (04/07/2021 8:04 AM [...] M.D. LAB BLOOD ADD-ON Performing Organization Address City/State/[facility] Phon e Number [facility] - [address] [address] [facility] [address] [facility] Alkaline Phosphatase (04/07/2021 8:04 AM CDT) athologist Signature Alkaline 70 35 - 104 04/07/2021 DTL Phosphatase, S U/L 9:29 AM CDT Specimen Anatomical Collection Method Collection Time Receive d Time (Source) Location / / Volume Laterality Blood (Blood, 04/07/2021 8:04 AM 04/07/20 8:58 Venous) CDT AM CDT Arturo Ricks M.D. LAB BLOOD ADD-ON Performing Organization Address City/[facility] Phon e Number [facility] - [address] documented in this encounter Visit Diagnoses Diagnosis Waldenstrom's Macroglobulinemia (HCC) documented in this encounter Care Teams Braided Rug Maker Relationship Specialty Start Date End Date Elsewhere, Pcp PCP - General Family Medicine 03/04/21 documented as of this encounter
--- OUTSIDE RECORDS SUMMARY | 2022-07-13 09:06 | XMS_ITS | Encounter Summary ---
:1945 Author Organization [facility] Address [address] [place] [address] Care Team Providers Name Role Phone Elsewhere, [...] on filedocumented in this encounter Care Teams Hearing Examiner Relationship Specialty Start Date End Date Elsewhere, Pcp PCP - General Family Medicine 03/04/21 documented as of this encounter
--- OUTSIDE RECORDS SUMMARY | 2022-07-13 09:07 | XMS_ITS | Encounter Summary ---
:1945 Author Organization [facility] Address [address] [place] [address] Care Team Providers Name Role Phone Elsewhere, Pcp Primary Care Provider Unavailable Reason for Visit Reason Comments Post-op Follow-up Outpatient (Routine) - Closed Specialty Diagnoses / Procedures Referred By Contact Refer red To Contact Ophthalmology Arron Patricio M. D. [facility] [address] [place] [phone] Referral ID Status Reason Start Date Expiration Date Visits Requ ested Visits Authorized [id number] Closed 01/01/2021 01/01/2022 1 1 Encounter Details Date Type Department Care Team Description 03/31/2021 Office Visit Department of Arron Patricio Ophthalmology ar Knox M.D. Implant Status Post [place], [place] [address] [place] [address] (Primary Dx) [address] [place] [phone] Social History Tobacco Use Types Packs/Day Years [...] rimary documented in this encounter Care Teams Blow Torch Operator Relationship Specialty Start Date End Date Elsewhere, Pcp PCP - General Family Medicine 03/04/21 documented as of this encounter
--- OUTSIDE RECORDS SUMMARY | 2022-07-13 09:07 | XMS_ITS | Encounter Summary ---
:1945 Author Organization [facility] Address [address] [place] [address] Care Team Providers Name Role Phone Unavailable Primary Care Provider Unavailable Reason for Visit Reason Comments Lab work question Encounter Details Date Type Department Care Team Description 09/04/2020 Clinical Division of [facility] Lab work questi on Communication Hematology in Arturo Ricks [place], M.D. [place] [address] [place] [address] [address] [place] [address] Social History Tobacco Use Types Packs/Day Years [...] or relatives? How often do you attend moravian or More than 4 times per year 04/09/2022 yazdanism services? Do you belong to any clubs or Yes 04/09/2022 organizations such as moravian groups, unions, fraternal or athletic groups, or [...] to fast for labs. Patient verbalized understanding. ER CHIEF Telephone Encounter - Mary Majano - 09/04/2020 10:08 AM CST Patient called. She is wondering if she will need to fast for her lab kit collection. Please reach her at: [phone] Thank you, Mary ER CHIEF documented in this encounter Plan of Treatment Not on filedocumented as of this encounter Visit Diagnoses Not on filedocumented in this encounter
--- OUTSIDE RECORDS SUMMARY | 2022-07-13 09:07 | XMS_ITS | Encounter Summary ---
:1945 Author Organization [facility] Address [address] [place] [address] Care Team Providers Name Role Phone Unavailable Primary Care Provider Unavailable Reason for Visit Reason Comments COVID Inquiry Encounter Details Date Type Department Care Team Description 04/03/2020 Clinical Communication Division of Kevin Ricks , ALVINA Cast Hematology in Arturo Mckeon M.D. [place], Formerly named [facility] [address] [place], [place] [address] [place] [address] [place], [place] [phone] (Wo rk) [phone] Social History Tobacco Use Types Packs/Day Years [...] - 04/03/2020 9:54 AM CDT (RST and [facility] locations only: If the patient is not [...] reply to: desk 1 Scheduling Contact Number: [phone] documented in this encounter Plan of Treatment Not on filedocumented as of this encounter Visit Diagnoses Not on filedocumented in this encounter
--- OUTSIDE RECORDS SUMMARY | 2022-07-13 09:07 | XMS_ITS | Encounter Summary ---
:1945 Author Organization [facility] Address [address] [place] [address] Care Team Providers Name Role Phone Unavailable Primary Care Provider Unavailable Encounter Details Date Type Department Care Team Description 04/08/2020 Orders Only Division of Daisy López's Hematology in A, R.N. Macroglobulinemia (HCC) [place], [place] [address] [place] [address] (Primary Dx) [address] [place] [address] [phone] Social History Tobacco Use Types Packs/Day Years [...]
--- OUTSIDE RECORDS SUMMARY | 2022-07-13 09:07 | XMS_ITS | Encounter Summary ---
:1945 Author Organization [facility] Address [address] [place] [address] Care Team Providers Name Role Phone Unavailable Primary Care Provider Unavailable Encounter Details Date Type Department Care Team Description 08/28/2020 Hospital Encounter Department of [facility] Laboratory Medicine Macroglo bulinemia (HCC) and Pathology, [facility] in [place], [place] [address] [place] [address] Social History Tobacco Use Types Packs/Day Years [...] daily. 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) [employer] TURMERIC ROOT EXTRACT Take 1 tablet by [...] Waldenstrom's Result s for REFLEX T/S PM CODE INSPECTOR Macroglobulinemia (HCC) this procedure are in the results section. M-SPIKE FOLLOW-UP, S Routine 09/09/2020 1:25 Waldenstrom's Res ults for PM CODE INSPECTOR Macroglobulinemia (HCC) this procedure are in the results section. IMMUNOGLOBULIN FREE Routine 09/09/2020 1:25 Waldenstrom's Resu lts for LIGHT CHAINS, S PM CODE INSPECTOR Macroglobulinemia (HCC) t his procedure are in the results section. IMMUNOGLOBULINS (IGG, Routine 09/09/2020 1:25 Waldenstrom's Re sults for IGA, AND IGM), S PM CODE INSPECTOR Macroglobulinemia (HCC) this procedure are in the results section. ASPARTATE Routine 09/09/2020 1:25 Waldenstrom's Results for AMINOTRANSFERASE (AST), PM CODE INSPECTOR Macroglobulinemia (HCC) this procedure S/P are in the results section. SODIUM, S/P Routine 09/09/2020 1:25 Waldenstrom's Results for PM CODE INSPECTOR Macroglobulinemia (HCC) this procedure are in the results section. POTASSIUM, S/P Routine 09/09/2020 1:25 Waldenstrom's Results f or PM CODE INSPECTOR Macroglobulinemia (HCC) this procedure are in the results section. ALKALINE PHOSPHATASE, Routine 09/09/2020 1:25 Waldenstrom's Re sults for S/P PM CODE INSPECTOR Macroglobulinemia (HCC) this procedure are in the results section. CREATININE WITH EGFR, Routine 09/09/2020 1:25 Waldenstrom's Re sults for S/P PM CODE INSPECTOR Macroglobulinemia (HCC) this procedure are in the results section. CALCIUM, TOT, S/P Routine 09/09/2020 1:25 Waldenstrom's Result s for PM CODE INSPECTOR Macroglobulinemia (HCC) this procedure are in the results section. documented in this encounter Results Sodium (09/09/2020 1:25 PM CODE INSPECTOR) athologist Signature Sodium, S 135 135 - 145 09/10/2020 9:46 DTL mmol/L AM CODE INSPECTOR Specimen Anatomical Collection Method Collection Time Receive d Time (Source) Location / / Volume Laterality Blood (Blood, 09/09/2020 1:25 PM 09/10/19 8:37 Venous) CODE INSPECTOR AM CODE INSPECTOR Resulting Agency Comment Mailed In Specimen Arturo Ricks M.D. LAB BLOOD ADD-ON Performing Organization Address City/State/ZIP [facility] Phon e Number [facility] - [address] [place] [address] (ABNORMAL) Potassium (09/09/2020 1:25 PM CODE INSPECTOR) P athologist Signature Potassium, S 3.5 (L) 3.6 - 5.2 09/10/2020 DTL mmol/L 9:46 AM CODE INSPECTOR Specimen Anatomical Collection Method Collection Time Receive d Time (Source) Location / / Volume Laterality Blood (Blood, 09/09/2020 1:25 PM 09/10/19 8:37 Venous) CODE INSPECTOR AM CODE INSPECTOR Resulting Agency Comment Mailed In Specimen Arturo Ricks M.D. LAB BLOOD ADD-ON Performing Organization Address [facility] Phon e Number [facility] - [address] (ABNORMAL) M-Alok Follow-Up (09/09/2020 1:25 PM CODE INSPECTOR) Patholo gist Method Time Signature Total Protein, 6.6 6.3 - 7.9 09/10/2020 [facility] S g/dL 12:28 PM CODE INSPECTOR Albumin 3.4 3.4 - 4.7 09/10/2020 [facility] g/dL 4:10 PM CODE INSPECTOR Alpha-1 0.3 0.1 - 0.3 09/10/2020 [facility] Globulin g/dL 4:10 PM CODE INSPECTOR Alpha-2 1.1 (H) 0.6 - 1.0 09/10/2020 [facility] Globulin g/dL 4:10 PM CODE INSPECTOR Beta-Globulin 0.8 0.7 - 1.2 09/10/2020 [facility] g/dL 4:10 PM CODE INSPECTOR Gamma-Globulin 1.0 0.6 - 1.6 09/10/2020 [facility] g/dL 4:10 PM CODE INSPECTOR A/G Ratio 1.05 09/10/2020 [facility] 4:10 PM CODE INSPECTOR M spike 0.8 (H) g/dL 09/10/2020 [facility] 4:10 PM CODE INSPECTOR Impression M-spike in 09/10/2020 [facility] gamma 4:10 PM CODE INSPECTOR fraction. Specimen Anatomical Collection Method Collection Time Receive d Time (Source) Location / / Volume Laterality Blood (Blood, 09/09/2020 1:25 PM 09/10/19 Venous) CODE INSPECTOR 10:27 AM CODE INSPECTOR Resulting Agency Comment Mailed In Specimen Arturo Ricks M.D. LAB BLOOD ADD-ON Performing Organization Address City/State/ZIP Code Phon e Number [facility] [address] [place] [phone] [facility] [place] [address] Laboratory Medicine and Pathology [address] [place] [address] Dr. NATH (ABNORMAL) Immunoglobulin Free Light Chains (09/09/2020 1:25 PM CODE INSPECTOR) athologist Signature [place] Free 1.89 0.3300 - 09/10/2020 [facility] Light Chain, S 1.94 mg/dL 5:20 PM CODE INSPECTOR Lambda Free 0.6380 0.5700 - 09/10/2020 [facility] Light Chain, S 2.63 mg/dL 5:20 PM CODE INSPECTOR [place]/Lambda 2.96 (H) 0.2600 - 09/10/2020 [facility] FLC Ratio 1.65 5:20 PM CODE INSPECTOR Comment: Elevated free light chain ratios between [...] (Blood, 09/09/2020 1:25 PM 09/10/19 21 Venous) CODE INSPECTOR 10:29 AM CODE INSPECTOR Resulting Agency Comment Mailed In Specimen Arturo Ricks M.D. LAB BLOOD ADD-ON Performing Organization Address City/State/ZIP Code Phon e Number [facility] [address] [place], [place] [address] [facility] [place] [address] Laboratory Medicine and Pathology [address] [place] [address] Dr. NATH (ABNORMAL) Immunoglobulins (IgG, IgA, and IgM) (09/09/2020 1:25 PM CODE INSPECTOR) Patholo gist Method Time Signature Immunoglobulin A 19 (L) 61 - 356 09/10/2020 [facility] (IgA), S mg/dL 2:35 PM CODE INSPECTOR Immunoglobulin M 1020 (H) 37 - 286 09/10/2020 [facility] (IgM), S mg/dL 2:18 PM CODE INSPECTOR Immunoglobulin G 279 (L) 767 - 09/10/2020 [facility] (IgG), S 1590 1:35 PM CODE INSPECTOR mg/dL Specimen Anatomical Collection Method Collection Time Receive d Time (Source) Location / / Volume Laterality Blood (Blood, 09/09/2020 1:25 PM 09/10/19 21 Venous) CODE INSPECTOR 10:29 AM CODE INSPECTOR Resulting Agency Comment Mailed In Specimen Arturo Ricks M.D. LAB BLOOD ADD-ON Performing Organization Address City/State/ZIP Code Phon e Number [facility] [address] [place], [place] [address] [facility] [place] [address] Laboratory Medicine and Pathology [address] [place] (ABNORMAL) Creatinine with Estimated GFR (09/09/2020 1:25 PM CODE INSPECTOR) Analysis Performed At Patho logist Time Signature Creatinine 1.09 (H) 0.59 - 09/10/2020 DTL 1.04 mg/dL 9:46 AM CODE INSPECTOR eGFR-Non 50 (L) >=60 09/10/2020 DTL Black/ mL/min/BSA 9:46 AM CODE INSPECTOR [place] Island[place] Comment: ----ADDITIONAL INFORMATION---- Estimated GFR calculated using the 2009 CKD_EPI creatinine equation. eGFR-Black/ 57 (L) >=60 mL/min/BSA 2020 9:46 AM CODE INSPECTOR DTL Comment: ----ADDITIONAL INFORMATION---- Estimated GFR calculated using the 2009 CKD_EPI creatinine equation. Specimen Anatomical Collection Method Collection Time Receive d Time (Source) Location / / Volume Laterality Blood (Blood, 09/09/2020 1:25 PM 09/10/19 21 8:37 Venous) CODE INSPECTOR AM CODE INSPECTOR Resulting Agency Comment Mailed In Specimen Arturo Ricks M.D. LAB BLOOD ADD-ON Performing Organization Address City/State/ZIP Code Phon e Number [facility] - [address] [place] [address] [facility] [place] [place] [address] [facility] 200 [facility] (ABNORMAL) CBC no call back, reflex T/S HGB <8 (09/09/2020 1:25 PM CODE INSPECTOR) [facility] Method Time Signature Hemoglobin 13.0 11.6 - 09/10/2020 DTL 15.0 g/dL 9:09 AM CODE INSPECTOR Hematocrit 39.6 35.5 - 09/10/2020 DTL 44.9 % 9:09 AM CODE INSPECTOR Erythrocytes 4.43 3.92 - 09/10/2020 DTL 5.13 9:09 AM CODE INSPECTOR x10(12)/L MCV 89.4 78.2 - 09/10/2020 DTL 97.9 fL 9:09 AM CODE INSPECTOR RBC Distrib Width 13.2 12.2 - 09/10/2020 DTL 16.1 % 9:09 AM CODE INSPECTOR Platelet Count 248 157 - 371 09/10/2020 DTL x10(9)/L 9:09 AM CODE INSPECTOR Leukocytes 3.9 3.4 - 9.6 09/10/2020 DTL x10(9)/L 9:09 AM CODE INSPECTOR Neutrophils 2.82 1.56 - 09/10/2020 DTL 6.45 9:09 AM CODE INSPECTOR x10(9)/L Lymphocytes 0.56 (L) 0.95 - 09/10/2020 DTL 3.07 9:09 AM CODE INSPECTOR x10(9)/L Monocytes 0.34 0.26 - 09/10/2020 DTL 0.81 9:09 AM CODE INSPECTOR x10(9)/L Eosinophils 0.16 0.03 - 09/10/2020 DTL 0.48 9:09 AM CODE INSPECTOR x10(9)/L Basophils 0.03 0.01 - 09/10/2020 DTL 0.08 9:09 AM CODE INSPECTOR x10(9)/L Specimen Anatomical Collection Method Collection Time Receive d Time (Source) Location / / Volume Laterality Blood (Blood, 09/09/2020 1:25 PM 09/10/19 8:37 Venous) CODE INSPECTOR AM CODE INSPECTOR Resulting Agency Comment Mailed In Specimen Arturo Ricks M.D. LAB BLOOD NON ADD-ON Performing Organization Address City/[facility]/ZIP [facility] Phon e Number [facility] - [address] [place] [address] [place] [address] [address] [facility] Calcium, Total (09/09/2020 1:25 PM CODE INSPECTOR) P athologist Signature Calcium, Total, 9.6 8.8 - 10.2 09/10/2020 DTL S mg/dL 9:46 AM CODE INSPECTOR Specimen Anatomical Collection Method Collection Time Receive d Time (Source) Location / / Volume Laterality Blood (Blood, 09/09/2020 1:25 PM 09/10/19 8:37 Venous) CODE INSPECTOR AM CODE INSPECTOR Resulting Agency Comment Mailed In Specimen Arturo Ricks M.D. LAB BLOOD ADD-ON Performing Organization Address City/[facility] Phon e Number [facility] - [address] [place] [address] [facility] AST (Aspartate Aminotransferase) (09/09/2020 1:25 PM CODE INSPECTOR) [facility] gist Method Time Signature Aspartate 17 8 - 43 09/10/2020 DTL Aminotransferase U/L 9:46 AM CODE INSPECTOR (AST), S Specimen Anatomical Collection Method Collection Time Receive d Time (Source) Location / / Volume Laterality Blood (Blood, 09/09/2020 1:25 PM 09/10/19 8:37 Venous) CODE INSPECTOR AM CODE INSPECTOR Resulting Agency Comment Mailed In Specimen Arturo Ricks M.D. LAB BLOOD ADD-ON Performing Organization Address City/[facility] Phon e Number [facility] - [address] [place], [place] [address] [facility] Alkaline Phosphatase (09/09/2020 1:25 PM CODE INSPECTOR) P athologist Signature Alkaline 65 35 - 104 09/10/2020 DTL Phosphatase, S U/L 9:46 AM CODE INSPECTOR Specimen Anatomical Collection Method Collection Time Receive d Time (Source) Location / / Volume Laterality Blood (Blood, 09/09/2020 1:25 PM 09/10/19 21 8:37 Venous) CODE INSPECTOR AM CODE INSPECTOR Resulting Agency Comment Mailed In Specimen Arturo Ricks M.D. LAB BLOOD ADD-ON Performing Organization Address City/State/ZIP Code Phon e Number [facility] - [address] [place], [place] [address] [facility] [address] Laboratories-[facility] [address] documented in this encounter Visit Diagnoses Diagnosis Waldenstrom's Macroglobulinemia (HCC) documented in this encounter
--- OUTSIDE RECORDS SUMMARY | 2022-07-13 09:07 | XMS_ITS | Encounter Summary ---
:1945 Author Organization [facility] Address [address] [place] [address] Care Team Providers Name Role Phone Unavailable Primary Care Provider Unavailable Encounter Details Date Type Department Care Team Description 02/19/2021 Nurse Triage Department of [facility] Jennifer Troy R.N. Medicine, [facility], in [address] [place], [place] [address] [place] [address] [place] [address] [phone] Social History Tobacco Use Types Packs/Day Years [...] or relatives? How often do you attend alevism or More than 4 times per year 04/09/2022 adventism services? Do you belong to any clubs or Yes 04/09/2022 organizations such as alevism groups, unions, fraternal or athletic groups, or [...] had Covid 01/29 , was tested in [place]. She calls for further recommendations. Her call was warm transferred to Angie in Ophthalmology for further advice documented in this encounter Plan of Treatment Not on filedocumented as of this encounter Visit Diagnoses Not on filedocumented in this encounter
--- OUTSIDE RECORDS SUMMARY | 2022-07-13 09:07 | XMS_ITS | Encounter Summary ---
:1945 Author Organization [facility] Address [address] [place] [address] Care Team Providers Name Role Phone Elsewhere, Pcp Primary Care Provider Unavailable Reason for Visit Reason Comments Intake Assessment Encounter Details Date Type Department Care Team Description 04/06/2021 Clinical Division of Kevin Intake Assessme nt Communication Hematology in Arturo Ricks [place], M.D. [place] [address] [place] [address] [address] [place] [phone] Social History Tobacco Use Types Packs/Day Years [...] filedocumented in this encounter Care Teams Digital Imager Relationship Specialty Start Date End Date Elsewhere, Pcp PCP - General Family Medicine 03/04/21 documented as of this encounter
--- OUTSIDE RECORDS SUMMARY | 2022-07-13 09:07 | XMS_ITS | Encounter Summary ---
:1945 Author Organization [facility] Address [address] [place] [address] Care Team Providers Name Role Phone Unavailable Primary Care Provider Unavailable Reason for Visit Reason Comments Lab and urine results Encounter Details Date Type Department Care Team Description 10/03/2020 Clinical Division of [place] Lab and urine Communication Hematology in Arturo Ricks, results Ana Castillo [place] [address] [place] [address] [address] [place] [phone] Social History Tobacco Use Types Packs/Day Years [...] urine results from 09/09/2020 be faxed to [facility] - Attention: Dr. Brijesh Ken at [phone]. Patient also requests a paper copy sent to her home address. Call back number is [phone] Is it okay to leave a voicemail on answering machine? yes Thank you, Stephanie Hematology [facility] DORA RATION MANAGER documented in this encounter Plan of Treatment Not on filedocumented as of this encounter Visit Diagnoses Not on filedocumented in this encounter
--- OUTSIDE RECORDS SUMMARY | 2022-07-13 09:07 | XMS_ITS | Encounter Summary ---
:1945 Author Organization [facility] Address [address] [place] [address] Care Team Providers Name Role Phone Unavailable Primary Care Provider Unavailable Encounter Details Date Type Department Care Team Description 11/10/2020 Clinical Communication Department of Arron Patricio Ophthalmology ar Knox M.D. [place], [place] [address] [place] [address] [address] [place] [phone] Social History Tobacco Use Types Packs/Day Years [...] More than 4 times per year 04/09/2022 denominational services? Do you belong to any clubs [...]
--- OUTSIDE RECORDS SUMMARY | 2022-07-13 09:07 | XMS_ITS | Encounter Summary ---
:1945 Author Organization [facility] Address [address] [place] [address] Care Team Providers Name Role Phone Unavailable Primary Care Provider Unavailable Reason for Visit Reason Comments Surgery questions Encounter Details Date Type Department Care Team Description 02/24/2021 Clinical Department of Arron Patricio [facility] Communication Ophthalmology ar Knox M.D. [place], [place] [address] [place] [address] [address] [place] [phone] [phone] Social History Tobacco Use Types Packs/Day Years [...]
--- OUTSIDE RECORDS SUMMARY | 2022-07-13 09:07 | XMS_ITS | Encounter Summary ---
:1945 Author Organization [facility] Address [address] [place] [address] Care Team Providers Name Role Phone Elsewhere, Pcp Primary Care Provider Unavailable Reason for Visit Reason Comments Post-op Follow-up Outpatient (Routine) - Closed Specialty Diagnoses / Procedures Referred By Contact Refer red To Contact Ophthalmology Arron Patricio M. D. [facility] [address] [place] [phone] Referral ID Status Reason Start Date Expiration Date Visits Requ ested Visits Authorized [id number] Closed 01/01/2021 01/01/2022 1 1 Encounter Details Date Type Department Care Team Description 03/05/2021 Office Visit Department of Arron Patricio Ophthalmology ar Knox M.D. Implant Status Post [place], [place] [address] [place] [address] (Primary Dx) [address] [place] [phone] [phone] Social History Tobacco Use Types Packs/Day Years [...] rimary documented in this encounter Care Teams Director Of Oncology Relationship Specialty Start Date End Date Elsewhere, Pcp PCP - General Family Medicine 03/04/21 documented as of this encounter
--- OUTSIDE RECORDS SUMMARY | 2022-07-13 09:07 | XMS_ITS | Encounter Summary ---
:1945 Author Organization [facility] Address [address] [place] [address] Care Team Providers Name Role Phone Elsewhere, Pcp Primary Care Provider Unavailable Encounter Details Date Type Department Care Team Description 03/04/2021 Surgery Outpatient Procedure Arron Patricio V., [facility] [place] in [place]illo INTRAOCULAR LENS [place] 200 [facility] IMPLANTATION. [address] [place] [phone] Social History Tobacco Use Types Packs/Day Years [...] or relatives? How often do you attend taoist or More than 4 times per year 04/09/2022 orthodoxy services? Do you belong to any clubs or Yes 04/09/2022 organizations such as taoist groups, unions, fraternal or athletic groups, or [...] Dr. Arron Patricio, Tue- Tue 8-5 at [phone] [facility] Gypsum Block Setter, (after business hours, and ask for the bronze chaser eye doctor) Please bring all of your [...] daily. 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) [employer] TURMERIC ROOT EXTRACT Take 1 tablet by [...] Continuous, Starting on Tue03/04/21 at 0845, Intra-Op dcoqnrqoq-cyphqsazsro-mooljhjlkpgys human Given 03/04/2021 9:11 4.6 mL Right [...] 03/03/2021 03/04/2021 acetaminophen tablet 1,000 mg (TYLENOL) 0848 (Not Given - Provider: Anay Elias R.N. [...] a respiratory rate less than 8 breaths/minute. kurpslylp-gwvqlnuqbbp-yplyggxhgtqwv faisal n recombinant (Ophthalmic Block Solution #2) [...] injection documented in this encounter Care Teams Animal Ecologist Relationship Specialty Start Date End Date Elsewhere, Pcp PCP - General Family Medicine 03/04/21 documented as of this encounter
--- OUTSIDE RECORDS SUMMARY | 2022-07-13 09:07 | XMS_ITS | Encounter Summary ---
:1945 Author Organization [facility] Address [address] [place] [address] Care Team Providers Name Role Phone Unavailable Primary Care Provider Unavailable Reason for Referral Outpatient (Routine) - Closed Specialty Diagnoses / Procedures Referred By Contact Refer red To Contact Arturo Aleman M.D. [address] [phone] Referral ID Status Reason Start Date Expiration Date Visits Requ ested Visits Authorized [id number] Closed 04/04/2020 04/04/2021 1 1 Reason for Visit Outpatient (Routine) - Closed Specialty Diagnoses / Procedures Referred By Contact Refer red To Contact Hematology Oncology Rika [place] M.D. [address] [place] [phone] Referral ID Status Reason Start Date Expiration Date Visits Requ ested Visits Authorized [id number] Closed 10/02/2019 10/01/2020 1 1 Encounter Details Date Type Department Care Team Description 04/04/2020 Office Visit Division of Annieastrisha Waldenstrom's Hematology in Arturo Ricks Macroglperez linechristi (HCC) Ana Castillo (Primary Dx) [address] [place] [phone] Social History Tobacco Use Types Packs/Day [...] 1. 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 5857-8774: Treated with rituximab, intermittently, totaling 10 different [...]
--- OUTSIDE RECORDS SUMMARY | 2022-07-13 09:07 | XMS_ITS | Encounter Summary ---
:1945 Author Organization [facility] Address [address] [place] [address] Care Team Providers Name Role Phone Unavailable Primary Care Provider Unavailable Reason for Visit Reason Comments Intake Assessment Encounter Details Date Type Department Care Team Description 09/29/2020 [facility] Communication Hematology in Arturo Ricks [place], M.D. [place] [address] [facility] [address] [place] [phone] Social History Tobacco Use Types Packs/Day Years [...] 09/29/2020 2:58 PM CST Intake completed 09/29 Y SPECIALIST documented in this encounter Plan of Treatment Not on filedocumented as of this encounter Visit Diagnoses Not on filedocumented in this encounter
--- OUTSIDE RECORDS SUMMARY | 2022-07-13 09:07 | XMS_ITS | Encounter Summary ---
:1945 Author Organization [facility] Address [address] [place] [address] Care Team Providers Name Role Phone Unavailable Primary Care Provider Unavailable Reason for Referral Outpatient (Routine) - Closed Specialty Diagnoses / Procedures Referred By Contact Refer red To Contact Hematology Oncology Judy Aleman [facility] Arturo Mckeon M.D. [address] [place] [phone] Referral ID Status Reason Start Date Expiration Date Visits Requ ested Visits Authorized [id number] Closed 10/02/2020 10/02/2021 1 1 ER PRESS TENDER Reason for Visit Outpatient (Routine) - Closed Specialty Diagnoses / Procedures Referred By Contact Refer red To Contact Arturo Aleman M.D. [address] [phone] Referral ID Status Reason Start Date Expiration Date Visits Requ ested Visits Authorized [id number] Closed 04/04/2020 04/04/2021 1 1 Encounter Details Date Type Department Care Team Description 10/02/2020 Virtual Visit Division of [facility] in Arturo Ricks Macroglperez linechristi (HCC) Ana Castillo (Primary Dx) [address] [phone] Social History Tobacco Use Types Packs/Day Years [...] to continue observation with a repeat visit, [id number], in approximately 6 months. Orders placed. We [...] appointment at the Nephrology hypertension Clinic here [facility] if he needs a 2nd opinion. I recommended immunization against COVID-19 as soon as available in her community. No further questions at this time. ER PRESS TENDER documented in this encounter Plan of Treatment Scheduled Referrals Name Type Priority Associated Order Schedule Diagnoses Hematology office Outpatient Referral Routine Exp ected: visit (clinic) 04/01/2021 (Approximate), Expires: 10/02/2023 documented as of this encounter Results (ABNORMAL) Immunoglobulins (IgG, IgA, and IgM) (04/07/2021 8:04 AM CDT) [facility] Time Signature Immunoglobulin A 29 (L) 61 [...] Organization Address City/State/ZIP Code Phon e Number [facility] [address] [place], [place] [address] [facility] [place] [address] Laboratory Medicine and Pathology [address] [...] Organization Address City/State/ZIP Code Phon e Number [facility] - [address] [place], [place] [address] [facility] [place] [address] [facility] [address] Potassium (04/07/2021 [...] Organization Address City/State/ZIP Code Phon e Number [facility] - [address] [place], [place] [address] [facility] [place] [address] [facility] [address] [...] Organization Address City/State/ZIP Code Phon e Number [facility] [address] [place], [place] [address] [facility] [place] [address] Laboratory Medicine and Pathology [address] [place] (ABNORMAL) Immunoglobulin Free Light Chains (04/07/2021 8:04 AM CDT) Analysis Performed At Patho logist Time Signature Mescal Free 2.17 (H) 0.3300 - 04/07/2021 [facility] Light Chain, S 1.94 mg/dL 11:18 AM CDT Lambda Free 0.4200 (L) 0.5700 - 04/07/2021 [facility] Light Chain, S 2.63 mg/dL 11:33 AM CDT Mescal/Lambda 5.17 (H) 0.2600 - 04/07/2021 [facility] Ratio 1.65 11:33 AM CDT Specimen Anatomical Collection Method Collection Time Receive d Time (Source) Location / / Volume Laterality Blood (Blood, 04/07/2021 8:04 AM 04/07/20 Venous) CDT 10:52 AM CDT Arturo Ricks M.D. LAB BLOOD ADD-ON Performing Organization Address City/State/ZIP Code Phon e Number [facility] [address] [place], [place] [address] [facility] [place] [address] Laboratory Medicine and Pathology [address] [place] Creatinine with Estimated GFR (04/07/2021 8:04 AM CDT) P athologist Signature Creatinine 0.69 0.59 - 04/07/2021 DTL 1.04 mg/dL 9:29 AM CDT eGFR-Non 85 >=60 04/07/2021 DTL Black/ mL/min/BSA 9:29 AM CDT Palestinian Comment: ----ADDITIONAL INFORMATION---- Estimated GFR calculated using [...] Organization Address City/State/ZIP Code Phon e Number [facility] - [address] [place], [place] [address] [facility] [place] [address] [facility] [address] (ABNORMAL) [...] Organization Address City/State/ZIP Code Phon e Number [facility] - [address] [place], [place] [address] [facility] [place] [address] [facility] [address] Calcium, Total (04/07/2021 8:04 AM CDT) P athologist Signature Calcium, Total, 9.6 8.8 - 10.2 04/07/2021 DTL S mg/dL 9:29 AM CDT Specimen Anatomical Collection Method Collection Time Receive d Time (Source) Location / / Volume Laterality Blood (Blood, 04/07/2021 8:04 AM 04/07/20 8:58 Venous) CDT AM CDT Arturo Ricks M.D. LAB BLOOD ADD-ON Performing Organization Address City/State/[facility] Code Phon e Number [facility] - [address] [place], [place] [address] [place] [address] First [facility] AST (Aspartate Aminotransferase) (04/07/2021 8:04 AM CDT) [...] M.D. LAB BLOOD ADD-ON Performing Organization Address City/[facility]/ZIP Code Phon e Number [facility] - 200 [place], [place] [address] [place] [address] [place] [address] [facility] Alkaline Phosphatase (04/07/2021 8:04 AM CDT) P athologist Signature Alkaline 70 35 - 104 04/07/2021 DTL Phosphatase, S U/L 9:29 AM CDT Specimen Anatomical Collection Method Collection Time Receive d Time (Source) Location / / Volume Laterality Blood (Blood, 04/07/2021 8:04 AM 04/07/20 8:58 Venous) CDT AM CDT Authorizing Provider Result Sammi Ricks M.D. LAB BLOOD ADD-ON Performing Organization Address City/[facility]/ZIP Code Phon e Number [facility] - [address] [place], [place] [address] [place] [address] [facility] [address] documented in this encounter Visit Diagnoses Diagnosis Waldenstrom's Macroglobulinemia (HCC) - Primary documented in this encounter
--- OUTSIDE RECORDS SUMMARY | 2022-07-13 09:07 | XMS_ITS | Encounter Summary ---
:1945 Author Organization [facility] Address [address] [place] [address] Care Team Providers Name Role Phone Unavailable Primary Care Provider Unavailable Reason for Visit Reason Comments Outside labs Encounter Details Date Type Department Care Team Description 04/03/2020 Clinical Communication Division of [facility] labs Hematology in Ana Smith [place], [place] [address] [place] [address] [address] [place] [phone] Social History Tobacco Use Types Packs/Day Years [...] Creatinine 0.4 mg/dL Comment: GFR 109 EXT [place]/Lambda-Free Light Chain Ratio 3.70 EXT 25-Hydroxy D [...]
--- OUTSIDE RECORDS SUMMARY | 2022-07-13 09:07 | XMS_ITS | Encounter Summary ---
:1945 Author Organization [facility] Address [address] [place] [address] Care Team Providers Name Role Phone Unavailable Primary Care Provider Unavailable Reason for Visit Reason Comments Pre-Surgical COVID-19 screening Encounter Details Date Type Department Care Team Description 02/26/2021 Clinical Department of Arron Patricio Pre-Surgical Communication Ophthalmology ar Knox M.D. COVID-19 screening [place], [place] [address] [place] [address] [address] [place] [phone] Social History Tobacco Use Types Packs/Day Years [...] checks -Pt Understands and will contact the Registered Medical Assistant if there are any changes or new symptoms (symptoms that are listed above). documented in this encounter Plan of Treatment Not on filedocumented as of this encounter Visit Diagnoses Not on filedocumented in this encounter
--- OUTSIDE RECORDS SUMMARY | 2022-07-13 09:07 | XMS_ITS | Encounter Summary ---
:1945 Author Organization [facility] Address [address] [place] [address] Care Team Providers Name Role Phone Unavailable Primary Care Provider Unavailable Encounter Details Date Type Department Care Team Description 08/28/2020 Hospital Encounter Department of [facility] Laboratory Medicine Macroglo bulinemia (HCC) and Pathology, [facility] in [place], [place] [address] [place] [address] Social History Tobacco Use Types Packs/Day Years [...] or relatives? How often do you attend bahai or More than 4 times per year 04/09/2022 amish services? Do you belong to any clubs or Yes 04/09/2022 organizations such as bahai groups, unions, fraternal or athletic groups, or [...] daily. 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) [employer] by [employer] TURMERIC ROOT EXTRACT Take 1 tablet by [...] for this PROTEIN, 24 HR, U AM SMALL BATTERY PLATE ASSEMBLER Macroglobulinemia (HCC) procedure are in the results section. documented in this encounter Results Electrophoresis, Protein, 24 Hour, Urine (09/09/2020 7:00 AM SMALL BATTERY PLATE ASSEMBLER) P athologist Signature Total Protein, <142 <229 mg/24 09/10/2020 ED 24 HR, U h 9:12 AM SMALL BATTERY PLATE ASSEMBLER Comment: ----ADDITIONAL INFORMATION---- On 02/15/2017 the total protein assay me thod changed resulting in approximately a 15% increase in prote in values. Collection Duration 24 h 09/10/2020 7:[address] ED Urine Volume 3550 mL 09/10/2020 7:22 AM SMALL BATTERY PLATE ASSEMBLER ED Concentration <4 mg/dL 09/10/2020 9:12 AM SMALL BATTERY PLATE ASSEMBLER SCOTT A Albumin, % 100 % 09/11/2020 4:23 PM SMALL BATTERY PLATE ASSEMBLER SDSC Impression Albumin is the only protein 09/11/2020 4:23 PM SMALL BATTERY PLATE ASSEMBLER [facility]SC detected. Specimen Anatomical Collection Method Collection Time Receive d Time (Source) Location / / Volume Laterality Urine (Urine, 24 09/09/2020 7:00 AM 09/10 7:21 Hours) SMALL BATTERY PLATE ASSEMBLER AM SMALL BATTERY PLATE ASSEMBLER Resulting Agency Comment Mailed In Specimen Arturo Ricks M.D. LAB URINE ORDERABLES Performing Organization Address City/State/ZIP Code Phon e Number [facility] [address] [place], [place] [address] [place] [address] Laboratories[facility] [address] [facility] [place] [address] Laboratory Medicine and Pathology [address] [place] documented in this encounter Visit Diagnoses Diagnosis Waldenstrom's Macroglobulinemia (HCC) documented in this encounter
--- OUTSIDE RECORDS SUMMARY | 2022-07-13 09:07 | XMS_ITS | Encounter Summary ---
:1945 Author Organization [facility] Address [address] [place] [address] Care Team Providers Name Role Phone Elsewhere, Pcp Primary Care Provider Unavailable Reason for Visit Reason Comments External Lab Entry Encounter Details Date Type Department Care Team Description 02/19/2021 Clinical Department of Arron Patricio External Lab Entry Communication Ophthalmology ar Knox M.D. [place], [place] [address] [place] [address] [address] [place] [phone] Social History Tobacco Use Types Packs/Day Years [...] More than 4 times per year 04/09/2022 jew services? Do you belong to any clubs [...] Coronavirus-2 (COVID-19) RNA (01/28/2021 4:15 PM CDT) [facility] gist Method Time Signature EXT Detected (A) [facility] SARS-CoV-2 [facility] RNA Indetermi LABORATORY vicente, Invalid, Negative, Not Detected, Undetecte d, Other (specify in comment) Specimen (Source) Anatomical Collection Method Collection Time Re ceived Time Location / / Volume Laterality Swab 01/28/2021 4:15 PM CDT Narrative This result has an attachment that is no t available. Arron Patricio M.D. LAB MICROBIOLOGY - GENERAL O RDERABLES Performing Organization Address City/State/ZIP Code Phon e Number [facility] [address] [place] [address] documented in this encounter Visit Diagnoses Not on filedocumented in this encounter Care Teams Processing Mgr Relationship Specialty Start Date End Date Elsewhere, Pcp PCP - General Family Medicine 03/04/21 documented as of this encounter
--- OUTSIDE RECORDS SUMMARY | 2022-07-13 09:07 | XMS_ITS | Encounter Summary ---
:1945 Author Organization [facility] Address [address] [place] [address] Care Team Providers Name Role Phone Elsewhere, Pcp Primary Care Provider Unavailable Reason for Visit Outpatient (Routine) - Closed Specialty Diagnoses / Procedures Referred By Contact Refer red To Contact Hematology Oncology Judy Aleman M.D. [address] [place] [phone] Referral ID Status Reason Start Date Expiration Date Visits Requ ested Visits Authorized [id number] Closed 10/02/2020 10/02/2021 1 1 Encounter Details Date Type Department Care Team Description 04/07/2021 [facility] Arturo Ricks, Macroglobu linemia (HCC) Ana Castillo (Primary Dx) [address] [place] [phone] Social History Tobacco Use Types Packs/Day Years [...] 1. 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 8828-1815: Treated with rituximab, intermittently, totaling 10 different [...] do labs locally and send sent to [facility] as a mail in. I will reviewthose [...] Primary documented in this encounter Care Teams Claim Agent Relationship Specialty Start Date End Date Elsewhere, Pcp PCP - General Family Medicine 03/04/21 documented as of this encounter
--- OUTSIDE RECORDS SUMMARY | 2022-07-13 09:07 | XMS_ITS | Encounter Summary ---
:1945 Author Organization [facility] Address [address] [place] [address] Care Team Providers Name Role Phone Elsewhere, Pcp Primary Care Provider Unavailable Encounter Details Date Type Department Care Team Description 03/04/2021 Hospital Encounter Outpatient Procedure Arron Patricio V., [place] [facility] [place] [address] [place] [address] [address] [place] [phone] (Wo rk) Social History Tobacco Use Types [...] or relatives? How often do you attend jew or More than 4 times per year 04/09/2022 restoration services? Do you belong to any clubs or Yes 04/09/2022 organizations such as jew groups, unions, fraternal or athletic groups, or [...] Dr. Arron Patricio, Tue- Tue 8-5 at [phone] [facility] Primary Special Educator, (after business hours, and ask for the iron assorter eye doctor) Please bring all of your [...] daily. 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) [employer] by [employer] TURMERIC ROOT EXTRACT Take 1 tablet by [...] 03/03/2021 03/04/2021 acetaminophen tablet 1,000 mg (TYLENOL) 0845 (Not Given - Provider: Anay Elias R.N. [...] a respiratory rate less than 8 breaths/minute. smlononek-hthimeynapb-gdruzotoocjiz faisal n recombinant (Ophthalmic Block Solution #2) [...] injection documented in this encounter Care Teams Pump Operator Relationship Specialty Start Date End Date Elsewhere, Pcp PCP - General Family Medicine 03/04/21 documented as of this encounter
--- OUTSIDE RECORDS SUMMARY | 2022-07-13 09:07 | XMS_ITS | Encounter Summary ---
:1945 Author Organization [facility] Address [address] [place] [address] Care Team Providers Name Role Phone Unavailable Primary Care Provider Unavailable Reason for Referral Outpatient (Routine) - Closed Specialty Diagnoses / Procedures Referred By Contact Refer red To Contact Ophthalmology Arron Patricio M. D. [address] [phone] Referral ID Status Reason Start Date Expiration Date Visits Requ ested Visits Authorized [id number] Closed 01/01/2021 01/01/2022 1 1 Scheduling Instructions 3-4 weeks after surgery Outpatient (Routine) - Closed Specialty Diagnoses / Procedures Referred By Contact Refer red To Contact Ophthalmology Arron Patricio M. D. [address] [phone] Referral ID Status Reason Start Date Expiration Date Visits Requ ested Visits Authorized [id number] Closed 01/01/2021 01/01/2022 1 1 Reason for Visit Reason Comments Blurred Vision Appointment Request (Routine) - Closed Specialty Diagnoses / Procedures Referred By Contact Refer red To Contact Ophthalmology Diagnoses Cataract Referral ID Status Reason Start Date Expiration Date Visits Requ ested Visits Authorized [id number] Closed 11/10/2020 11/10/2021 1 1 Encounter Details Date Type Department Care Team Description 01/01/2021 Office Visit Department of Arron Patricio 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
--- OUTSIDE RECORDS SUMMARY | 2022-07-13 09:08 | XMS_ITS | Encounter Summary ---
:1945 Author Organization [facility] Address [address] [place] [address] Care Team Providers Name Role Phone Unavailable Primary Care Provider Unavailable Reason for Referral Outpatient (Routine) - Closed Specialty Diagnoses / Procedures Referred By Referred To Contact Contact Hematology Oncology Diagnoses Waldenstrom's Macroglobulinemia (HCC) Rika Cameron M.D. [address] [place] [address] Referral ID Status Reason Start Date Expiration Date Visits Requ ested Visits Authorized [id number] Closed 09/11/2018 09/11/2019 1 1 PING AND RECEIVING SPECIALIST Reason for Visit Outpatient (Routine) - Closed Specialty Diagnoses / Procedures Referred By Contact Refer red To Contact Hematology Oncology Rika Cameron [place] M.D. [address] [place] [address] Referral ID Status Reason Start Date Expiration Date Visits Requ ested Visits Authorized [id number] Closed 03/09/2018 03/09/2019 1 1 Encounter Details Date Type Department Care Team Description 09/11/2018 Office Visit Division of Kiko Cameron (Primary Dx); Hematology in Rika Smith M.D. Waldenstrom's Macroglobulinemia (HCC) [place], [place] [address] [facility] [address] [place] [phone] Social History Tobacco Use Types Packs/Day Years [...] Comments Blood Pressure 128/74 09/11/2018 10:12 AM SHIPPING AND RECEIVING SPECIALIST Pulse 69 09/11/2018 10:12 AM SHIPPING AND RECEIVING SPECIALIST Temperature 36.5 ??C (97.7 ??F) 09/11/2018 10:12 AM SHIPPING AND RECEIVING SPECIALIST Respiratory Rate - - Oxygen Saturation - - Inhaled Oxygen Concentration - - Weight 64.7 kg (142 lb 10.2 oz) 09/11/2018 10:12 AM SHIPPING AND RECEIVING SPECIALIST Height 167.3 cm (5' 5.87) 09/11/2018 10:12 AM SHIPPING AND RECEIVING SPECIALIST Body Mass Index 23.12 09/11/2018 10:12 AM SHIPPING AND RECEIVING SPECIALIST documented in this encounter Progress Notes Rika [...] with the illness and subsequent of her saicwv-[id number] in July. About a week after the [...] well-nourished. Eyes: Left eye lid drooping, conjunctival [place] colored lesion noted at the superior portion [...] by: Rika Cameron M.D. 09/11/2018 11:12 AM PING AND RECEIVING SPECIALIST documented in this encounter Plan of Treatment Scheduled Referrals Name Type Priority Associated Diagnoses Order S [facility] Hematology office Outpatient Routine Waldenstrom's Expected: visit (clinic) Referral Macroglobulinemia (HCC) (Approximate), Expires: 09/11/2019 documented as of this encounter Procedures Procedure Name Priority Date/Time Associated Diagnosis Comme nts SODIUM, S/P Routine 09/11/2018 7:01 AM Weakness General Resul ts for this SHIPPING AND RECEIVING SPECIALIST procedure are i n the results section . POTASSIUM, S/P Routine 09/11/2018 7:01 AM Weakness General Res ults for this SHIPPING AND RECEIVING SPECIALIST procedure are i n the results section . CORTISOL, S Routine 09/11/2018 7:01 AM Weakness General Resul ts for this SHIPPING AND RECEIVING SPECIALIST procedure are i n the results section . documented in this encounter Results (ABNORMAL) Immunoglobulin M (IgM) (03/05/2019 9:18 AM CDT) [facility] Method Time Signature Immunoglobulin M 1310 (H) 37 - 286 03/05/2019 (IgM), S mg/dL 5:13 PM CDT Specimen Anatomical Collection Method Collection Time Receive d Time (Source) Location / / Volume Laterality Blood (Blood, 03/05/2019 9:18 AM 03/05/20 19 1:27 Venous) CDT PM CDT Rika Cameron M.D. LAB BLOOD ADD-ON Performing Organization Address City/State/ZIP Code Phon e Number [facility] [address] [place], [place] [address] [facility] Sodium (03/05/2019 9:18 AM CDT) P athologist Signature Sodium, S 136 135 - 145 03/05/2019 mmol/L 10:21 AM CDT Specimen Anatomical Collection Method Collection Time Receive d Time (Source) Location / / Volume Laterality Blood (Blood, 03/05/2019 9:18 AM 03/05/20 19 9:39 Venous) CDT AM CDT Rika Cameron M.D. LAB BLOOD ADD-ON Performing Organization Address City/[facility]/ZIP Code Phon e Number [facility] - [address] [place] [address] 05 [facility] Potassium (03/05/2019 9:18 AM CDT) P athologist Signature Potassium, S 3.9 3.6 - 5.2 03/05/2019 mmol/L 10:21 AM CDT Specimen Anatomical Collection Method Collection Time Receive d Time (Source) Location / / Volume Laterality Blood (Blood, 03/05/2019 9:18 AM 03/05/20 19 9:39 Venous) CDT AM CDT Rika Cameron M.D. LAB BLOOD ADD-ON Performing Organization Address City/[facility]/ZIP Code Phon e Number [facility] - [address] [place] [address] [facility] (ABNORMAL) Monoclonal Gammopathy Screen (03/05/2019 9:18 AM CDT) Component Value Ref Test Analysis Performed At Patholo gist Range Method Time Signature Total 6.5 6.3 - 03/05/2019 Protein, S 7.9 g/dL 2:44 PM CDT [place] Free 2.25 (H) 0.3300 - 03/05/2019 Light Chain, 1.94 7:08 PM CDT S mg/dL [place] Free 0.5970 0.5700 - 03/05/2019 Light Chain, 2.63 4:33 PM CDT S mg/dL [place]/Lambda 3.77 (H) 0.2600 - 03/05/2019 FLC Ratio [...] and its performa nce characteristics determined by [facility] in a manner consistent with CLIA [...] Organization Address City/State/ZIP Code Phon e Number [facility] [address] [place], [place] [address] [facility] Creatinine with Estimated GFR (03/05/2019 9:18 AM CDT) P athologist Signature Creatinine 0.64 0.59 - 03/05/2019 1.04 mg/dL 10:21 AM CDT eGFR-Non 88 >=60 03/05/2019 Black/ mL/min/BSA 10:21 AM CDT [place] Comment: ----ADDITIONAL INFORMATION---- Estimated GFR calculated using [...] Organization Address City/State/ZIP Code Phon e Number [facility] - [address] [place] [address] 05 [facility] (ABNORMAL) CBC with Differential (03/05/2019 9:18 AM CDT) [facility] Method Time Signature Hemoglobin 12.4 11.6 [...] LAB BLOOD ADD-ON Performing Organization Address City/[facility]/ZIP [facility] Phon e Number [facility] - [address] Bilirubin, Total (03/05/2019 9:18 AM CDT) P athologist Signature Bilirubin, 0.5 <=1.2 mg/dL 03/05/2019 Total, S 10:21 AM CDT Specimen Anatomical Collection Method Collection Time Receive d Time (Source) Location / / Volume Laterality Blood (Blood, 03/05/2019 9:18 AM 03/05/20 9:39 Venous) CDT AM CDT Rika Cameron M.D. LAB BLOOD ADD-ON Performing Organization Address City/[facility]/ZIP Code Phon e Number [facility] - [address] AST (Aspartate Aminotransferase) (03/05/2019 9:18 AM CDT) [facility] Method Time Signature Aspartate 16 8 - 43 03/05/2019 Aminotransferase U/L 10:21 AM CDT (AST), S Specimen Anatomical Collection Method Collection Time Receive d Time (Source) Location / / Volume Laterality Blood (Blood, 03/05/2019 9:18 AM 03/05/20 9:39 Venous) CDT AM CDT Rika Cameron M.D. LAB BLOOD ADD-ON Performing Organization Address City/[facility]/ZIP Code Phon e Number [facility] - [address] [place] [address] [facility] Alkaline Phosphatase (03/05/2019 9:18 AM CDT) P athologist Signature Alkaline 58 35 - 104 03/05/2019 Phosphatase, S U/L 10:21 AM CDT Specimen Anatomical Collection Method Collection Time Receive d Time (Source) Location / / Volume Laterality Blood (Blood, 03/05/2019 9:18 AM 03/05/20 9:39 Venous) CDT AM CDT Rika Cameron M.D. LAB BLOOD ADD-ON Performing Organization Address City/[facility]/ZIP Code Phon e Number [facility] - [address] [place] [address] [facility] Potassium (09/11/2018 7:01 AM SHIPPING AND RECEIVING SPECIALIST) P athologist Signature Potassium, S 4.4 3.6 - 5.2 09/11/2018 [facility] mmol/L 11:23 AM SHIPPING AND RECEIVING SPECIALIST LABORATORIES [facility] Specimen Anatomical Collection Method Collection Time Receive d Time (Source) Location / / Volume Laterality Blood (Blood, 09/11/2018 7:01 AM 09/11/19 Venous) SHIPPING AND RECEIVING SPECIALIST 10:59 AM SHIPPING AND RECEIVING SPECIALIST Rika Cameron M.D. LAB BLOOD ADD-ON Performing Organization Address City/[facility]/ZIP Code Phon e Number [facility] - [address] [place] [address] [facility] Sodium (09/11/2018 7:01 AM SHIPPING AND RECEIVING SPECIALIST) P athologist Signature Sodium, S 136 135 - 145 09/11/2018 [facility] mmol/L 11:23 AM SHIPPING AND RECEIVING SPECIALIST [facility] Specimen Anatomical Collection Method Collection Time Receive d Time (Source) Location / / Volume Laterality Blood (Blood, 09/11/2018 7:01 AM 09/11/19 Venous) SHIPPING AND RECEIVING SPECIALIST 10:59 AM SHIPPING AND RECEIVING SPECIALIST Rika Cameron M.D. LAB BLOOD ADD-ON Performing Organization Address City/[facility]/ZIP Code Phon e Number [facility] - [address] [place] [address] [facility] Cortisol (09/11/2018 7:01 AM SHIPPING AND RECEIVING SPECIALIST) P athologist Signature Cortisol AM 19 7 - 25 09/11/2018 [facility] Result mcg/dL 12:03 PM SHIPPING AND RECEIVING SPECIALIST LABORATORIES [facility] Specimen Anatomical Collection Method Collection Time Receive d Time (Source) Location / / Volume Laterality Blood (Blood, 09/11/2018 7:01 AM 09/11/19 19 Venous) SHIPPING AND RECEIVING SPECIALIST 10:59 AM SHIPPING AND RECEIVING SPECIALIST Rika Cameron M.D. LAB BLOOD ADD-ON Performing Organization Address City/State/ZIP Code Phon e Number [facility] - [address] [place] [address] [facility] documented in this encounter Visit Diagnoses Diagnosis Weakness General - Primary Waldenstrom's Macroglobulinemia (HCC) documented in this encounter
--- OUTSIDE RECORDS SUMMARY | 2022-07-13 09:08 | XMS_ITS | Encounter Summary ---
:1945 Author Organization [facility] Address [address] [place] [address] Care Team Providers Name Role Phone Unavailable Primary Care Provider Unavailable Reason for Visit Reason Comments COVID Nurse Line Encounter Details Date Type Department Care Team Description 02/07/2020 Clinical Communication Division of ALVINA Cameron Nurse Rosalie Hematology in Rika Smith M.D. [place], [address] [place], [place] [address] [place] [address] [place], [place] [phone] (Work) [phone] Social History Tobacco Use Types Packs/Day Years [...] More than 4 times per year 04/09/2022 mosque services? Do you belong to any clubs [...] [facility] [place] [facility] (including now)? Education Answer Date Recorded What is the highest level of school Associate degree: academ [employer] program 03/01/2019 you have completed or the highest degree you have received? Sex Assigned at Date Recorded Female 03/05/2018 7:34 PM CDT documented as of this encounter Miscellaneous Notes Telephone Encounter - Makenzie Fontanez - 02/07/2020 1:50 PM CDT (Note for [facility] locations only: If the patient states [...] 14 days? no Route reply to:benedicto hem on site services specialist Scheduling Contact Number: [phone] documented in this encounter Plan of Treatment Not on filedocumented as of this encounter Visit Diagnoses Not on filedocumented in this encounter
--- OUTSIDE RECORDS SUMMARY | 2022-07-13 09:08 | XMS_ITS | Encounter Summary ---
:1945 Author Organization [facility] Address [address] [place] [address] Care Team Providers Name Role Phone Unavailable Primary Care Provider Unavailable Reason for Visit Reason Comments April 04 appt Encounter Details Date Type Department Care Team Description 04/01/2020 Clinical Communication Division of Rika Cameron 14 appt Hematology in [place], [place] [address] [facility] [address] [place] [address] [phone] Social History Tobacco Use Types Packs/Day Years [...] the highest level of school Associate degree: [employer] program 03/01/2019 you have completed or the highest degree you have received? Sex Assigned at Date Recorded Female 03/05/2018 7:34 PM CDT documented as of this encounter Miscellaneous Notes Telephone Encounter - Daisy López RGhislaine. - 04/01/2020 3:49 PM CDT Sraah had her blood drawn today. Reviewed April [address] Brown. Telephone Encounter - Erika Denise - 04/01/2020 2:44 PM CDT Due to her 's appointments, the earliest she is able to be here on April 04, is 1:00pm. Please let her know if this will not work. She can be reached at [phone]. documented in this encounter Plan of Treatment Not on filedocumented as of this encounter Visit Diagnoses Not on filedocumented in this encounter
--- OUTSIDE RECORDS SUMMARY | 2022-07-13 09:08 | XMS_ITS | Encounter Summary ---
:1945 Author Organization [facility] Address [address] [place] [address] Care Team Providers Name Role Phone Unavailable Primary Care Provider Unavailable Encounter Details Date Type Department Care Team Description 03/05/2019 Hospital Department of Andrey Cameron's Encounter Laboratory Rika Smith M.D. Macroglobulinemia (HCC) Medicine and [address] [place] [address] [place] [address] [facility] [phone] [place] (Work) [address] [place] [address] [place], [place] (Fax) [phone] Social History Tobacco Use [...] the highest level of school Associate degree: [employer] program 03/01/2019 you have completed or the [...] daily. 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 LAB BLOOD ADD-ON Performing Organization Address City/State/ZIP Code Phon e Number [facility] [address] [place] [address] [facility] Sodium (03/05/2019 9:18 AM CDT) athologist Signature Sodium, S 136 135 - 145 03/05/2019 mmol/L 10:21 AM CDT Specimen Anatomical Collection Method Collection Time Receive d Time (Source) Location / / Volume Laterality Blood (Blood, 03/05/2019 9:18 AM 03/05/20 19 9:39 Venous) CDT AM CDT Rika Cameron M.D. LAB BLOOD ADD-ON Performing Organization Address City/[facility]/ZIP Code Phon e Number [facility] - [address] [place] [address] [facility] Potassium (03/05/2019 9:18 AM CDT) athologist Signature Potassium, S 3.9 3.6 - 5.2 03/05/2019 mmol/L 10:21 AM CDT Specimen Anatomical Collection Method Collection Time Receive d Time (Source) Location / / Volume Laterality Blood (Blood, 03/05/2019 9:18 AM 03/05/20 19 9:39 Venous) CDT AM CDT Rika Cameron M.D. LAB BLOOD ADD-ON Performing Organization Address City/[facility] Phon e Number [facility] - [address] [place] [address] [facility] (ABNORMAL) Monoclonal Gammopathy Screen (03/05/2019 9:18 AM CDT) Component Value Ref Test Analysis Performed At [facility] gist Range Method Time Signature Total 6.5 6.3 - 03/05/2019 Protein, S 7.9 g/dL 2:44 PM CDT [place] Free 2.25 (H) 0.3300 - 03/05/2019 Light Chain, 1.94 7:08 PM CDT S mg/dL [place] Free 0.5970 0.5700 - 03/05/2019 Light Chain, 2.63 4:33 PM CDT S mg/dL [place]/Lambda 3.77 (H) 0.2600 - 03/05/2019 FLC Ratio [...] and its performa nce characteristics determined by [facility] in a manner consistent with CLIA requirements. [...] Address City/State/ZIP Code Phon e Number [facility] [address] [place], [place] [address] [facility] Creatinine with Estimated GFR (03/05/2019 9:18 AM CDT) P athologist Signature Creatinine 0.64 0.59 - 03/05/2019 1.04 mg/dL 10:21 AM CDT eGFR-Non 88 >=60 03/05/2019 Black/ mL/min/BSA 10:21 AM CDT [place] Comment: ----ADDITIONAL INFORMATION---- Estimated GFR calculated using [...] Address City/State/ZIP Code Phon e Number [facility] - [address] [place], [place] [address] [facility] (ABNORMAL) CBC with Differential (03/05/2019 9:18 AM CDT) [facility] Method Time Signature Hemoglobin 12.4 11.6 [...] M.D. LAB BLOOD ADD-ON Performing Organization Address City/[facility]/ZIP Code Phon e Number [facility] - [address] [place] [address] [facility] Bilirubin, Total (03/05/2019 9:18 AM CDT) P athologist Signature Bilirubin, 0.5 <=1.2 mg/dL 03/05/2019 Total, S 10:21 AM CDT Specimen Anatomical Collection Method Collection Time Receive d Time (Source) Location / / Volume Laterality Blood (Blood, 03/05/2019 9:18 AM 03/05/20 9:39 Venous) CDT AM CDT Rika Cameron M.D. LAB BLOOD ADD-ON Performing Organization Address City/[facility]/ZIP Code Phon e Number [facility] - [address] [place] [address] [facility] AST (Aspartate Aminotransferase) (03/05/2019 9:18 AM CDT) [facility] Signature Aspartate 16 8 - 43 03/05/2019 Aminotransferase U/L 10:21 AM CDT (AST), S Specimen Anatomical Collection Method Collection Time Receive d Time (Source) Location / / Volume Laterality Blood (Blood, 03/05/2019 9:18 AM 03/05/20 19 9:39 Venous) CDT AM CDT Rika Cameron M.D. LAB BLOOD ADD-ON Performing Organization Address City/[facility]/ZIP Code Phon e Number [facility] - [address] [place] [address] 05 [facility] Alkaline Phosphatase (03/05/2019 9:18 AM CDT) [...] Address City/State/ZIP Code Phon e Number [facility] - [address] [place] [address] [facility] documented in this encounter Visit Diagnoses Diagnosis Waldenstrom's Macroglobulinemia (HCC) documented in this encounter
--- OUTSIDE RECORDS SUMMARY | 2022-07-13 09:08 | XMS_ITS | Encounter Summary ---
:1945 Author Organization [facility] Address [address] [place] [address] Care Team Providers Name Role Phone Unavailable Primary Care Provider Unavailable Encounter Details Date Type Department Care Team Description 07/04/2018 Clinical Communication Division of Hematology Rika Cameron in Sarah Castillo M.D. [address] [place] [phone] [phone] Social History Tobacco Use Types Packs/Day Years [...] Rika Cameron M.D. - 07/04/2018 3:01 PM NUT CULLER That would be fine, thanks CULLER documented in this encounter Plan of Treatment Not on filedocumented as of this encounter Visit Diagnoses Not on filedocumented in this encounter
--- OUTSIDE RECORDS SUMMARY | 2022-07-13 09:08 | XMS_ITS | Encounter Summary ---
:1945 Author Organization [facility] Address [address] [place] [address] Care Team Providers Name Role Phone Unavailable Primary Care Provider Unavailable Reason for Referral Outpatient (Routine) - Closed Specialty Diagnoses / Procedures Referred By Contact Refer red To Contact Hematology Oncology Rika Cameron [place] M.D. [address] [place] [address] Referral ID Status Reason Start Date Expiration Date Visits Requ ested Visits Authorized [id number] Closed 03/09/2018 03/09/2019 1 1 Reason for Visit Outpatient (Routine) - Closed Specialty Diagnoses / Procedures Referred By Referred To Contact Contact Hematology Oncology Diagnoses Waldenstrom's Macroglobulinemia (HCC) Rika Cameron M.D. [address] [place] [address] Referral ID Status Reason Start Date Expiration Date Visits Requ ested Visits Authorized [id number] Closed 12/09/2017 06/07/2018 1 1 Encounter Details Date Type Department Care Team Description 03/09/2018 Office Visit Division of Sumit Cameron (Primar y Dx); Hematology in Rika Smith M.D. Waldenstrom's Macroglobulinemia (HCC) [place], [place] [address] [facility] [address] [place] [phone] Social History Tobacco Use Types Packs/Day Years [...] alternating spending nights with the patient elderly [id number], which may contribute to her fatigue. Otherwise, she notes that the vision in her left eye is not as sharp as it use to be. The eyelid has notchanged significantly, but she describes seeing as if there is a smudge on her glasses at times. Shecalled to see Dr. aPtricio today, but he was unable to fit her in. She is exploring the option of seeing his colleague in [place], [place] which would be closer her home. She also states that she had breast tomosynthesis done in [place]. There was a slight abnormalitynoted in the [...] 25-Hydroxyvitamin D2 and D3 (09/11/2018 7:04 AM CAMERA CONTROL OPERATOR) P athologist Signature 25-Hydroxy D2 <4.0 ng/mL 09/12/2018 [facility] 3:17 PM CAMERA CONTROL OPERATOR [address] [facility] 25-Hydroxy D3 59 ng/mL 09/12/2018 [facility] 3:17 PM CAMERA CONTROL OPERATOR [address] [facility] 25-Hydroxy D 59 ng/mL 09/12/2018 [facility] Total 3:17 PM CAMERA CONTROL OPERATOR [address] [facility] Comment: Interpretation: 51-80 ng/mL (increased r isk of hypercalciuria) ----REFERENCE VALUE---- 25-HYDROXY D TOTAL (D2+D3) Optimum level s in the healthy population are 20-50, patients with bone disease may benefit from higher levels within this r jean-pierre. ----ADDITIONAL INFORMATION---- This test was developed and its performa nce characteristics determined by [facility] in a manner consistent with CLIA requirements. This test has not been cleared or approved by the [place] d and Drug Administration. Specimen Anatomical Collection Method Collection Time Receive d Time (Source) Location / / Volume Laterality Blood (Blood, 09/11/2018 7:04 AM 09/11/19 19 Venous) CAMERA CONTROL OPERATOR 10:31 AM CAMERA CONTROL OPERATOR Rika Cameron M.D. LAB BLOOD ADD-ON Performing Organization Address City/[facility]/ZIP Code Phon e Number [facility] [address] [place] [phone] [facility] (ABNORMAL) Immunoglobulin M (IgM) (09/11/2018 7:04 AM CAMERA CONTROL OPERATOR) Patholo gist Method Time Signature Immunoglobulin M 1490 (H) 37 - 286 09/11/2018 [facility] (IgM), S mg/dL 11:47 AM LABORATORIES - [facility] Specimen Anatomical Collection Method Collection Time Receive d Time (Source) Location / / Volume Laterality Blood (Blood, 09/11/2018 7:04 AM 09/11/19 8:20 Venous) CAMERA CONTROL OPERATOR AM CAMERA CONTROL OPERATOR Rika Cameron M.D. LAB BLOOD ADD-ON Performing Organization Address City/[facility]/ZIP Code Phon e Number [facility] LABORATORIES - [address] [place] [address] 05 [facility] Glucose, Fasting (09/11/2018 7:04 AM CAMERA CONTROL OPERATOR) P athologist Signature Glucose, P 95 70 - 100 09/11/2018 [facility] mg/dL 8:03 AM CAMERA CONTROL OPERATOR LABORATORIES - [facility] Last Intake 13 hr 09/11/2018 [facility] 7:26 AM CAMERA CONTROL OPERATOR LABORATORIES - [facility] Specimen Anatomical Collection Method Collection Time Receive d Time (Source) Location / / Volume Laterality Blood (Blood, 09/11/2018 7:04 AM 09/11/19 7:26 Venous) CAMERA CONTROL OPERATOR AM CAMERA CONTROL OPERATOR Rika Cameron M.D. LAB BLOOD NON ADD-ON Performing Organization Address City/State/ZIP Code Phon e Number [facility] LABORATORIES - [address] [place] [phone] 05 [facility] Creatinine with Estimated GFR (09/11/2018 7:04 AM CAMERA CONTROL OPERATOR) Analysis Performed At [facility] logist Time Signature Creatinine 0.72 0.59 - 09/11/2018 [facility] 1.04 mg/dL 8:09 AM CAMERA CONTROL OPERATOR LABORATORIES [facility] eGFR-Non 83 >=60 09/11/2018 [facility] Black/ mL/min/BSA 8:09 AM CAMERA CONTROL OPERATOR LABORATORIES - [facility] Comment: ----ADDITIONAL INFORMATION---- Estimated GFR calculated using the 2009 CKD_EPI creatinine equation. eGFR-Black/ >90 >=60 mL/min/BSA 09/11/2018 8:09 [facility] Irish CAMERA CONTROL OPERATOR LABORATORIES [facility] Comment: ----ADDITIONAL INFORMATION---- Estimated GFR calculated using the 2009 CKD_EPI creatinine equation. Specimen Anatomical Collection Method Collection Time Receive d Time (Source) Location / / Volume Laterality Blood (Blood, 09/11/2018 7:04 AM 09/11/19 19 7:25 Venous) CAMERA CONTROL OPERATOR AM CAMERA CONTROL OPERATOR Rika Cameron M.D. LAB BLOOD ADD-ON Performing Organization Address City/State/[facility] Code Phon e Number [facility] LABORATORIES - [address] [place] [address] [facility] (ABNORMAL) CBC with Differential (09/11/2018 7:04 AM CAMERA CONTROL OPERATOR) [facility] gist Method Time Signature Hemoglobin 13.3 11.6 - 09/11/2018 [facility] 15.0 g/dL 7:30 AM CAMERA CONTROL OPERATOR LABORATORIES [facility] Hematocrit 38.9 35.5 - 09/11/2018 [facility] 44.9 % 7:30 AM CAMERA CONTROL OPERATOR LABORATORIES [facility] Erythrocytes 4.38 3.92 - 09/11/2018 [facility] 5.13 7:30 AM CAMERA CONTROL OPERATOR LABORATORIES - x10(12)/L [facility] MCV 88.8 78.2 - 09/11/2018 [facility] 97.9 fL 7:30 AM CAMERA CONTROL OPERATOR LABORATORIES [facility] RBC Distrib 13.4 12.2 - 09/11/2018 [facility] Width 16.1 % 7:30 AM CAMERA CONTROL OPERATOR LABORATORIES [facility] Platelet Count 194 157 - 371 09/11/2018 [facility] x10(9)/L 7:30 AM CAMERA CONTROL OPERATOR LABORATORIES [facility] Leukocytes 2.8 (L) 3.4 - 9.6 09/11/2018 [facility] x10(9)/L 7:30 AM CAMERA CONTROL OPERATOR LABORATORIES - [facility] Neutrophils 1.96 1.56 - 09/11/2018 [facility] 6.45 7:30 AM CAMERA CONTROL OPERATOR LABORATORIES - x10(9)/L [facility] Lymphocytes 0.29 (L) 0.95 - 09/11/2018 [facility] 3.07 7:30 AM CAMERA CONTROL OPERATOR LABORATORIES - x10(9)/L [facility] Monocytes 0.26 0.26 - 09/11/2018 [facility] 0.81 7:30 AM CAMERA CONTROL OPERATOR LABORATORIES - x10(9)/L [facility] Eosinophils 0.24 0.03 - 09/11/2018 [facility] 0.48 7:30 AM CAMERA CONTROL OPERATOR LABORATORIES - x10(9)/L [facility] Basophils <0.03 0.01 - 09/11/2018 [facility] 0.08 7:30 AM CAMERA CONTROL OPERATOR LABORATORIES - x10(9)/L [facility] Specimen Anatomical Collection Method Collection Time Receive d Time (Source) Location / / Volume Laterality Blood (Blood, 09/11/2018 7:04 AM 09/11/19 19 7:26 Venous) CAMERA CONTROL OPERATOR AM CAMERA CONTROL OPERATOR Rika Cameron M.D. LAB BLOOD ADD-ON Performing Organization Address City/State/[facility] Code Phon e Number [facility] LABORATORIES - [address] Bilirubin, Total (09/11/2018 7:04 AM CAMERA CONTROL OPERATOR) P athologist Signature Bilirubin, 0.7 <=1.2 09/11/2018 [facility] Total, S mg/dL 8:09 AM CAMERA CONTROL OPERATOR LABORATORIES - [facility] Specimen Anatomical Collection Method Collection Time Receive d Time (Source) Location / / Volume Laterality Blood (Blood, 09/11/2018 7:04 AM 09/11/19 19 7:25 Venous) CAMERA CONTROL OPERATOR AM CAMERA CONTROL OPERATOR Rika Cameron M.D. LAB BLOOD ADD-ON Performing Organization Address City/State/[facility] Phon e Number [facility] LABORATORIES - [address] [place] [address] [facility] AST (Aspartate Aminotransferase) (09/11/2018 7:04 AM CAMERA CONTROL OPERATOR) Patholo gist Method Time Signature Aspartate 15 8 - 43 09/11/2018 [facility] Aminotransferase U/L 8:09 AM CAMERA CONTROL OPERATOR LABORATORIE S - (AST), S [facility] Specimen Anatomical Collection Method Collection Time Receive d Time (Source) Location / / Volume Laterality Blood (Blood, 09/11/2018 7:04 AM 09/11/19 19 7:25 Venous) CAMERA CONTROL OPERATOR AM CAMERA CONTROL OPERATOR Rika Cameron M.D. LAB BLOOD ADD-ON Performing Organization Address City/[facility] Phon e Number [facility] LABORATORIES - [address] [place] [address] [facility] Alkaline Phosphatase (09/11/2018 7:04 AM CAMERA CONTROL OPERATOR) athologist Signature Alkaline 62 35 - 104 09/11/2018 [facility] Phosphatase, S U/L 9:24 AM CAMERA CONTROL OPERATOR LABORATORIES - [facility] Specimen Anatomical Collection Method Collection Time Receive d Time (Source) Location / / Volume Laterality Blood (Blood, 09/11/2018 7:04 AM 09/11/19 19 7:25 Venous) CAMERA CONTROL OPERATOR AM CAMERA CONTROL OPERATOR Rika Cameron M.D. LAB BLOOD ADD-ON Performing Organization Address City/[facility] Code Phon e Number [facility] LABORATORIES - [address] [place] [address] [facility] CK (Creatine Kinase) (03/09/2018 3:01 PM CDT) athologist Signature Creatine 63 26 - 192 03/09/2018 [facility] Kinase (CK), S U/L 3:57 PM CDT LABORATORIES - [facility] Specimen Anatomical Collection Method Collection Time Receive d Time (Source) Location / / Volume Laterality Blood (Blood, 03/09/2018 3:01 PM 03/09/20 18 3:20 Venous) CDT PM CDT Rika Cameron M.D. LAB BLOOD ADD-ON Performing Organization Address City/[facility] Phon e Number [facility] LABORATORIES - [address] [place] [address] 05 [facility] C-Reactive Protein, High Sensitivity (03/09/2018 3:01 PM CDT) athologist Signature C-Reactive 1.8 <2.0 mg/L 03/10/2018 [facility] Protein, High 9:21 AM CDT LABORATORIES - Sens, S [facility] Comment: Lower risk Specimen Anatomical Collection Method Collection Time Receive d Time (Source) Location / / Volume Laterality Blood (Blood, 03/09/2018 3:01 PM 03/09/20 18 4:22 Venous) CDT PM CDT Rika Cameron M.D. LAB BLOOD ADD-ON Performing Organization Address City/[facility]/ZIP Code Phon e Number [facility] LABORATORIES - [address] [place] [address] [facility] Iron (03/09/2018 3:01 PM CDT) athologist Signature Iron, S 71 35 - 145 03/09/2018 [facility] mcg/dL 3:57 PM CDT LABORATORIES - [facility] Specimen Anatomical Collection Method Collection Time Receive d Time (Source) Location / / Volume Laterality Blood (Blood, 03/09/2018 3:01 PM 03/09/20 18 3:20 Venous) CDT PM CDT Rika Cameron M.D. LAB BLOOD ADD-ON Performing Organization Address City/[facility]/ZIP Code Phon e Number [facility] LABORATORIES - [address] [place] [address] 05 [facility] S-TSH (Thyroid-Stimulating Hormone - Sensitive) (03/09/2018 3:01 PM CDT) athologist [facility] TSH, Sensitive 3.2 0.3 - 4.2 03/09/2018 [facility] mIU/L 3:57 PM CDT LABORATORIES - [facility] Specimen Anatomical Collection Method Collection Time Receive d Time (Source) Location / / Volume Laterality Blood (Blood, 03/09/2018 3:01 PM 03/09/20 18 3:20 Venous) CDT PM CDT Rika Cameron M.D. LAB BLOOD ADD-ON Performing Organization Address City/[facility]/ZIP Code Phon e Number [facility] LABORATORIES - [address] [place] [address] [facility] Lipase (03/09/2018 3:01 PM CDT) athologist Signature Lipase, S 27 12 - 61 U/L 03/09/2018 [facility] 3:57 PM CDT LABORATORIES [facility] Specimen Anatomical Collection Method Collection Time Receive d Time (Source) Location / / Volume Laterality Blood (Blood, 03/09/2018 3:01 PM 03/09/20 18 3:20 Venous) CDT PM CDT Rika Cameron M.D. LAB BLOOD ADD-ON Performing Organization Address City/[facility]/ZIP Code Phon e Number [facility] LABORATORIES - [address] [place] [address] 05 [facility] GGT (Gamma-Glutamyltransferase) (03/09/2018 3:01 PM CDT) Component Value Ref Test Analysis [facility] gist Range Method Time Signature Gamma 12 5 - 36 03/09/2018 [facility] Glutamyltransferase U/L 3:57 PM CDT LABORATO ARYAN - (GGT), S [facility] Specimen Anatomical Collection Method Collection Time Receive d Time (Source) Location / / Volume Laterality Blood (Blood, 03/09/2018 3:01 PM 03/09/20 18 3:20 Venous) CDT PM CDT Rika Cameron M.D. LAB BLOOD ADD-ON Performing Organization Address [facility]/ZIP Code Phon e Number [facility] LABORATORIES - [address] [place] [address] 05 [facility] BUN (Blood Urea Nitrogen) (03/09/2018 3:01 PM CDT) P athologist Signature BUN (Blood 19 6 - 21 03/09/2018 [facility] Urea mg/dL 3:57 PM CDT LABORATORIES - Nitrogen), S [facility] Specimen Anatomical Collection Method Collection Time Receive d Time (Source) Location / / Volume Laterality Blood (Blood, 03/09/2018 3:01 PM 03/09/20 18 3:20 Venous) CDT PM CDT Rika Cameron M.D. LAB BLOOD ADD-ON Performing Organization Address City/[facility]/ZIP Code Phon e Number [facility] LABORATORIES - [address] [place] [address] [facility] Uric Acid (03/09/2018 3:01 PM CDT) P athologist Signature Uric Acid, S 3.9 2.7 - 6.1 03/09/2018 [facility] mg/dL 3:57 PM CDT LABORATORIES - [facility] Specimen Anatomical Collection Method Collection Time Receive d Time (Source) Location / / Volume Laterality Blood (Blood, 03/09/2018 3:01 PM 03/09/20 18 3:20 Venous) CDT PM CDT Rika Cameron M.D. LAB BLOOD ADD-ON Performing Organization Address City/State/ZIP Code Phon e Number [facility] LABORATORIES - [address] [place] [address] 05 [facility] LD (Lactate Dehydrogenase) (03/09/2018 3:01 PM CDT) [facility] Method Time Signature Lactate 149 122 - 222 03/09/2018 [facility] Dehydrogenase U/L 3:57 PM CDT LABORATORIES - (LD), [facility] Specimen Anatomical Collection Method Collection Time Receive d Time (Source) Location / / Volume Laterality Blood (Blood, 03/09/2018 3:01 PM 03/09/20 18 3:20 Venous) CDT PM CDT Rika Cameron M.D. LAB BLOOD NON ADD-ON Performing Organization Address City/[facility] Code Phon e Number [facility] LABORATORIES - [address] [place] [address] [facility] Calcium, Total (03/09/2018 3:01 PM CDT) P athologist Signature Calcium, 9.3 8.8 - 10.2 03/09/2018 [facility] Total, S mg/dL 3:57 PM CDT LABORATORIES - [facility] Specimen Anatomical Collection Method Collection Time Receive d Time (Source) Location / / Volume Laterality Blood (Blood, 03/09/2018 3:01 PM 03/09/20 18 3:20 Venous) CDT PM CDT Rika Cameron M.D. LAB BLOOD ADD-ON Performing Organization Address City/[facility]/ZIP Code Phon e Number [facility] LABORATORIES - [address] [place] [address] [facility] ALT (Alanine Aminotransferase) (03/09/2018 3:01 PM CDT) [facility] Method Time Signature Alanine 18 7 - 45 03/09/2018 [facility] Aminotransferase U/L 3:57 PM CDT LABORATORIE S - (ALT), S [facility] Specimen Anatomical Collection Method Collection Time Receive d Time (Source) Location / / Volume Laterality Blood (Blood, 03/09/2018 3:01 PM 03/09/20 18 3:20 Venous) CDT PM CDT Rika Cameron M.D. LAB BLOOD ADD-ON Performing Organization Address City/[facility]/ZIP Code Phon e Number [facility] LABORATORIES - [address] [place], [place] [address] [facility] documented in this encounter Visit Diagnoses Diagnosis Fatigue - Primary Waldenstrom's Macroglobulinemia (HCC) documented in this encounter
--- OUTSIDE RECORDS SUMMARY | 2022-07-13 09:08 | XMS_ITS | Encounter Summary ---
:1945 Author Organization [facility] Address [address] [place] [address] Care Team Providers Name Role Phone Unavailable Primary Care Provider Unavailable Encounter Details Date Type Department Care Team Description 03/09/2018 Hospital Department of Cameron, Waldenstrom's Macroglobulinemia (HCC); Encounter Laboratory Rika Smith M.D. Formerly [facility] Medicine and [address] [place] [address] Pathology[place]ly [place] [address] [facility] [phone] [place] (Work) [address] [place] [address] [place], [place] (Fax) [phone] Social History Tobacco Use [...] daily. 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 LAB BLOOD ADD-ON Performing Organization Address City/[facility]/ZIP Code Phon e Number [facility] LABORATORIES - [address] C-Reactive Protein, High Sensitivity (03/09/2018 3:01 PM CDT) athologist [facility] C-Reactive 1.8 <2.0 mg/L 03/10/2018 [facility] Protein, High 9:21 AM CDT LABORATORIES - Sens, S [facility] Comment: Lower risk Specimen Anatomical Collection Method Collection Time Receive d Time (Source) Location / / Volume Laterality Blood (Blood, 03/09/2018 3:01 PM 03/09/20 18 4:22 Venous) CDT PM CDT Rika Cameron M.D. LAB BLOOD ADD-ON Performing Organization Address [facility]/ZIP Code Phon e Number [facility]IES - [address] [place] [phone] [facility] Iron (03/09/2018 3:01 PM CDT) athologist [facility] Iron, S 71 35 - 145 03/09/2018 [facility] mcg/dL 3:57 PM CDT [facility] - [facility] Specimen Anatomical Collection Method Collection Time Receive d Time (Source) Location / / Volume Laterality Blood (Blood, 03/09/2018 3:01 PM 03/09/20 18 3:20 Venous) CDT PM CDT Rika Cameron M.D. LAB BLOOD ADD-ON Performing Organization Address City/[facility]/ZIP Code Phon e Number [facility]IES - [address] [place] [phone] [facility] S-TSH (Thyroid-Stimulating Hormone - Sensitive) (03/09/2018 3:01 PM CDT) athologist [facility] TSH, Sensitive 3.2 0.3 - 4.2 03/09/2018 [facility] mIU/L 3:57 PM CDT LABORATORIES - [facility] Specimen Anatomical Collection Method Collection Time Receive d Time (Source) Location / / Volume Laterality Blood (Blood, 03/09/2018 3:01 PM 03/09/20 18 3:20 Venous) CDT PM CDT Rika Cameron M.D. LAB BLOOD ADD-ON Performing Organization Address City/State/ZIP Code Phon e Number [facility]IES - [address] [place] [phone] [facility] Lipase (03/09/2018 3:01 PM CDT) P athologist Signature Lipase, S 27 12 - 61 U/L 03/09/2018 [facility] 3:57 PM CDT LABORATORIES - [facility] Specimen Anatomical Collection Method Collection Time Receive d Time (Source) Location / / Volume Laterality Blood (Blood, 03/09/2018 3:01 PM 03/09/20 18 3:20 Venous) CDT PM CDT Rika Cameron M.D. LAB BLOOD ADD-ON Performing Organization Address City/State/ZIP Code Phon e Number [facility]IES - [address] [place] [phone] [facility] GGT (Gamma-Glutamyltransferase) (03/09/2018 3:01 PM CDT) Component Value Ref Test Analysis Performed At Patholo gist Range Method Time Signature Gamma 12 5 - 36 03/09/2018 [facility] Glutamyltransferase U/L 3:57 PM CDT [facility] - (GGT), [facility] Specimen Anatomical Collection Method Collection Time Receive d Time (Source) Location / / Volume Laterality Blood (Blood, 03/09/2018 3:01 PM 03/09/20 18 3:20 Venous) CDT PM CDT Rika Cameron M.D. LAB BLOOD ADD-ON Performing Organization Address City/State/ZIP Code Phon e Number [facility]IES - [address] [place] [phone] [facility] BUN (Blood Urea Nitrogen) (03/09/2018 3:01 PM CDT) P athologist Signature BUN (Blood 19 6 - 21 03/09/2018 [facility] Urea mg/dL 3:57 PM CDT LABORATORIES - Nitrogen), [facility] Specimen Anatomical Collection Method Collection Time Receive d Time (Source) Location / / Volume Laterality Blood (Blood, 03/09/2018 3:01 PM 03/09/20 18 3:20 Venous) CDT PM CDT Rika Cameron M.D. LAB BLOOD ADD-ON Performing Organization Address City/State/ZIP Code Phon e Number [facility] - [address] [place] [phone] [facility] Uric Acid (03/09/2018 3:01 PM CDT) athologist Signature Uric Acid, S 3.9 2.7 - 6.1 03/09/2018 [facility] mg/dL 3:57 PM CDT LABORATORIES - [facility] Specimen Anatomical Collection Method Collection Time Receive d Time (Source) Location / / Volume Laterality Blood (Blood, 03/09/2018 3:01 PM 03/09/20 18 3:20 Venous) CDT PM CDT Rika Cameron M.D. LAB BLOOD ADD-ON Performing Organization Address City/[facility]/ZIP Code Phon e Number [facility] - [address] [place] [phone] [facility] LD (Lactate Dehydrogenase) (03/09/2018 3:01 PM CDT) [facility] gist Method Time Signature Lactate 149 122 - 222 03/09/2018 [facility] Dehydrogenase U/L 3:57 PM CDT LABORATORIES - (LD), S [facility] Specimen Anatomical Collection Method Collection Time Receive d Time (Source) Location / / Volume Laterality Blood (Blood, 03/09/2018 3:01 PM 03/09/20 18 3:20 Venous) CDT PM CDT Rika Cameron M.D. LAB BLOOD NON ADD-ON Performing Organization Address City/[facility]/ZIP Code Phon e Number [facility] - [address] [place] [phone] [facility] Calcium, Total (03/09/2018 3:01 PM CDT) athologist [facility] Calcium, 9.3 8.8 - 10.2 03/09/2018 [facility] Total, S mg/dL 3:57 PM CDT LABORATORIES - [facility] Specimen Anatomical Collection Method Collection Time Receive d Time (Source) Location / / Volume Laterality Blood (Blood, 03/09/2018 3:01 PM 03/09/20 18 3:20 Venous) CDT PM CDT Rika Cameron M.D. LAB BLOOD ADD-ON Performing Organization Address City/State/ZIP Code Phon e Number [facility] - [address] [place] [phone] [facility] ALT (Alanine Aminotransferase) (03/09/2018 3:01 PM CDT) Patholo gist Method Time Signature Alanine 18 7 - 45 03/09/2018 [facility] Aminotransferase U/L 3:57 PM CDT LABORATORIE S - (ALT), S [facility] Specimen Anatomical Collection Method Collection Time Receive d Time (Source) Location / / Volume Laterality Blood (Blood, 03/09/2018 3:01 PM 03/09/20 18 3:20 Venous) CDT PM CDT Rika Cameron M.D. LAB BLOOD ADD-ON Performing Organization Address City/State/ZIP Code Phon e Number [facility]IES - [address] [place], [place] [address] [facility] documented in this encounter Visit Diagnoses Diagnosis Waldenstrom's Macroglobulinemia (HCC) Fatigue documented in this encounter
--- OUTSIDE RECORDS SUMMARY | 2022-07-13 09:08 | XMS_ITS | Encounter Summary ---
:1945 Author Organization [facility] Address [address] [place] [address] Care Team Providers Name Role Phone Unavailable Primary Care Provider Unavailable Encounter Details Date Type Department Care Team Description 03/31/2020 Clinical Communication Division of Kevin Ricks , Hematology in Arturo Mckeon M.D. [place], [place] [address] [place] [address] [address] [place] [phone] Social History Tobacco Use Types Packs/Day Years [...] the highest level of school Associate degree: [employer] program 03/01/2019 you have completed or the highest degree you have received? Sex Assigned at Date Recorded Female 03/05/2018 7:34 PM CDT documented as of this encounter Plan of Treatment Not on filedocumented as of this encounter Visit Diagnoses Not on filedocumented in this encounter
--- OUTSIDE RECORDS SUMMARY | 2022-07-13 09:08 | XMS_ITS | Encounter Summary ---
:1945 Author Organization [facility] Address [address] [place] [address] Care Team Providers Name Role Phone Unavailable Primary Care Provider Unavailable Reason for Visit Reason Onset Date Comments Appointment 02/21/2018 Encounter Details Date Type Department Care Team Description 02/21/2018 Clinical Communication Department of Arron Patricio Ophthalmology ar Knox M.D. [place], [place] [address] [place] [address] [address] [place] [phone] Social History Tobacco Use Types Packs/Day Years [...]
--- OUTSIDE RECORDS SUMMARY | 2022-07-13 09:08 | XMS_ITS | Encounter Summary ---
:1945 Author Organization [facility] Address [address] [place] [address] Care Team Providers Name Role Phone Unavailable Primary Care Provider Unavailable Reason for Visit Outpatient (Routine) - Closed Specialty Diagnoses / Procedures Referred By Referred To Contact Contact Hematology Oncology Diagnoses Waldenstrom's Macroglobulinemia (HCC) Rika Cameron M.D. [address] [place] [address] Referral ID Status Reason Start Date Expiration Date Visits Requ ested Visits Authorized [id number] Closed 09/11/2018 09/11/2019 1 1 Encounter Details Date Type Department Care Team Description 03/05/2019 Office Visit Division of Rika Cameron M.D. [address] [place] [phone] [facility] Hematology in [place] M.D. Macroglobulinemia (HCC) [facility] (Primary Dx) [place] [address] [place] [phone] Social History Tobacco Use Types Packs/Day Years [...] the highest level of school Associate degree: [employer] program 03/01/2019 you have completed or the [...] CBC done with her local provider in [place] in about 6 months and return to [facility] in about a year to see me. For additional details, please see associated progress note. Rika Cameron M.D. documented in this encounter Plan of Treatment Not on filedocumented as of this encounter Visit Diagnoses Diagnosis Waldenstrom's Macroglobulinemia (HCC) - Primary documented in this encounter
--- OUTSIDE RECORDS SUMMARY | 2022-07-13 09:08 | XMS_ITS | Encounter Summary ---
:1945 Author Organization [facility] Address [address] [place] [address] Care Team Providers Name Role Phone Unavailable Primary Care Provider Unavailable Reason for Visit Reason Onset Date Comments Reschedule 09/08/2018 Automatic Appointmen t Reminder Encounter Details Date Type Department Care Team Description 09/08/2018 Clinical Communication Division of Jenny Cameron Hematology in Rika Smith M.D. ([facility]omatic [place], [address] Appointment [place], [place] Reminder) [address] [facility] [address] [place], [place] [phone] (Work) [phone] Social History Tobacco Use Types Packs/Day Years [...] update and reschedule as appropriate. Thank you. INE HAND documented in this encounter Plan of Treatment Not on filedocumented as of this encounter Visit Diagnoses Not on filedocumented in this encounter
--- OUTSIDE RECORDS SUMMARY | 2022-07-13 09:08 | XMS_ITS | Encounter Summary ---
:1945 Author Organization [facility] Address [address] [place] [address] Care Team Providers Name Role Phone Unavailable Primary Care Provider Unavailable Encounter Details Date Type Department Care Team Description 09/11/2018 Hospital Department of Andrey Cameron's Encounter Laboratory Rika Smith M.D. Macroglobulinemia (HCC) Medicine and [address] [place] [address] [facility] [place] [address] [facility] [phone] [place] (Work) [address] [place] [address] [place], [place] (Fax) [phone] Social History Tobacco Use [...] daily. 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 25-HYDROXYVITAMIN D2 Routine 09/11/2018 7:04 Waldenstrom's Res ults for AND D3, S AM LABOR UNION BUSINESS REPRESENTATIVE Macroglobulinemia (HCC) this procedure are in the results section. CBC WITH DIFFERENTIAL, Routine 09/11/2018 7:04 Waldenstrom's R esults for B AM LABOR UNION BUSINESS REPRESENTATIVE Macroglobulinemia (HCC) this procedure are in the results section. ASPARTATE Routine 09/11/2018 7:04 Waldenstrom's Results for AMINOTRANSFERASE (AST), AM LABOR UNION BUSINESS REPRESENTATIVE Macroglobulinemia (HCC) this procedure S/P are in the results section. ALKALINE PHOSPHATASE, Routine 09/11/2018 7:04 Waldenstrom's Re sults for S/P AM LABOR UNION BUSINESS REPRESENTATIVE Macroglobulinemia (HCC) this procedure are in the results section. GLUCOSE, FASTING, S/P Routine 09/11/2018 7:04 Waldenstrom's Re sults for AM LABOR UNION BUSINESS REPRESENTATIVE Macroglobulinemia (HCC) this procedure are in the results section. IMMUNOGLOBULIN M (IGM), Routine 09/11/2018 7:04 Waldenstrom's Results for S AM LABOR UNION BUSINESS REPRESENTATIVE Macroglobulinemia (HCC) this procedure are in the results section. CREATININE WITH EGFR, Routine 09/11/2018 7:04 Waldenstrom's Re sults for S/P AM LABOR UNION BUSINESS REPRESENTATIVE Macroglobulinemia (HCC) this procedure are in the results section. BILIRUBIN, TOT, S/P Routine 09/11/2018 7:04 Waldenstrom's Resu lts for AM LABOR UNION BUSINESS REPRESENTATIVE Macroglobulinemia (HCC) this procedure are in the results section. documented in this encounter Results Prot Electrophoresis and Isotype (09/11/2018 7:04 AM LABOR UNION BUSINESS REPRESENTATIVE) Component Value Ref Test Analysis Performed At [facility] gist Range Method Time Signature Total 7.1 6.3 - 09/11/2018 [facility] Protein, S 7.9 g/dL 9:12 AM [facility] Albumin 3.6 3.4 - 09/11/2018 [facility] 4.7 g/dL 3:07 PM [facility] Alpha-1 0.3 0.1 - 09/11/2018 [facility] Globulin 0.3 g/dL 3:07 PM [facility] Alpha-2 1.0 0.6 - 09/11/2018 [facility] Globulin 1.0 g/dL 3:07 PM [facility] Beta-Globulin 0.8 0.7 - 09/11/2018 [facility] 1.2 g/dL 3:07 PM [facility] Gamma-Globuli 1.4 0.6 - 09/11/2018 [facility] n 1.6 g/dL 3:07 PM [facility] A/G Ratio 1.02 09/11/2018 [facility] 3:07 PM [facility] M spike 1.2 g/dL 09/11/2018 [facility] 3:07 PM [facility] Impression M-spike in gamma fraction. 09/11/2018 [facility] See Isotype. 3:07 PM [facility] M-protein Monoclonal IgM 09/12/2018 [facility] Isotype kappa.D~Size of 3:30 PM [facility] MS monoclonal protein [facility] PERRYWill [facility] decreased [facility] since 04/26/2017.D~Sug st protein electrophoresis [...] performa nce characteristics determined by [facility] in a manner consistent with CLIA requirements. This test has not been cleared or approved by the [place] d and Drug Administration. Specimen Anatomical Collection Method Collection Time Receive d Time (Source) Location / / Volume Laterality Blood 09/11/2018 7:04 AM 9 8:20 LABOR UNION BUSINESS REPRESENTATIVE AM LABOR UNION BUSINESS REPRESENTATIVE Rika Cameron M.D. LAB BLOOD ADD-ON Performing Organization Address City/State/ZIP Code Phon e Number [facility] - [address] [place], [place] [address] [facility] 25-Hydroxyvitamin D2 and D3 (09/11/2018 7:04 AM LABOR UNION BUSINESS REPRESENTATIVE) P athologist Signature 25-Hydroxy D2 <4.0 ng/mL 09/12/2018 [facility] 3:17 PM LABOR UNION BUSINESS REPRESENTATIVE [address] [facility] 25-Hydroxy D3 59 ng/mL 09/12/2018 [facility] 3:17 PM LABOR UNION BUSINESS REPRESENTATIVE [address] [facility] 25-Hydroxy D 59 ng/mL 09/12/2018 [facility] Total 3:17 PM [facility] Comment: Interpretation: 51-80 ng/mL (increased r isk of hypercalciuria) ----REFERENCE VALUE---- 25-HYDROXY D TOTAL (D2+D3) Optimum level s in the healthy population are 20-50, patients with bone disease may benefit from higher levels within this r jean-pierre. ----ADDITIONAL INFORMATION---- This test was developed and its performa nce characteristics determined by [facility] in a manner consistent with CLIA requirements. This test has not been cleared or approved by the [place]. Jenn d and Drug Administration. Specimen Anatomical Collection Method Collection Time Receive d Time (Source) Location / / Volume Laterality Blood (Blood, 09/11/2018 7:04 AM 09/11/19 19 Venous) LABOR UNION BUSINESS REPRESENTATIVE 10:31 AM LABOR UNION BUSINESS REPRESENTATIVE Rika Cameron M.D. LAB BLOOD ADD-ON Performing Organization Address City/[facility]/ZIP [facility] Phon e Number [facility] [address] [place] [phone] [facility] (ABNORMAL) Immunoglobulin M (IgM) (09/11/2018 7:04 AM LABOR UNION BUSINESS REPRESENTATIVE) Patholo gist Method Time Signature Immunoglobulin M 1490 (H) 37 - 286 09/11/2018 [facility] (IgM), S mg/dL 11:47 AM [facility] Specimen Anatomical Collection Method Collection Time Receive d Time (Source) Location / / Volume Laterality Blood (Blood, 09/11/2018 7:04 AM 09/11/19 8:20 Venous) LABOR UNION BUSINESS REPRESENTATIVE AM LABOR UNION BUSINESS REPRESENTATIVE Rika Cameron M.D. LAB BLOOD ADD-ON Performing Organization Address City/[facility]/ZIP [facility] Phon e Number [facility]IES - [address] [place] [phone] [facility] Glucose, Fasting (09/11/2018 7:04 AM LABOR UNION BUSINESS REPRESENTATIVE) P athologist Signature Glucose, P 95 70 - 100 09/11/2018 [facility] mg/dL 8:03 AM LABOR UNION BUSINESS REPRESENTATIVE [facility]ATORIES [facility] Last Intake 13 hr 09/11/2018 [facility] 7:26 AM LABOR UNION BUSINESS REPRESENTATIVE LAB[facility]ATORIES [facility] Specimen Anatomical Collection Method Collection Time Receive d Time (Source) Location / / Volume Laterality Blood (Blood, 09/11/2018 7:04 AM 09/11/19 7:26 Venous) LABOR UNION BUSINESS REPRESENTATIVE AM LABOR UNION BUSINESS REPRESENTATIVE Rika Cameron M.D. LAB BLOOD NON ADD-ON Performing Organization Address City/[facility] Code Phon e Number [facility]IES - [address] [place] [phone] [facility] Creatinine with Estimated GFR (09/11/2018 7:04 AM LABOR UNION BUSINESS REPRESENTATIVE) Analysis Performed At [facility] logist Time Signature Creatinine 0.72 0.59 - 09/11/2018 [facility] 1.04 mg/dL 8:09 AM LABOR UNION BUSINESS REPRESENTATIVE [facility]ATORIES - [facility] eGFR-Non 83 >=60 09/11/2018 [facility] Black/ mL/min/BSA 8:09 AM LABOR UNION BUSINESS REPRESENTATIVE LAB[facility]ATORIES - [facility] Comment: ----ADDITIONAL INFORMATION---- Estimated GFR calculated using the 2009 CKD_EPI creatinine equation. eGFR-Black/ >90 >=60 mL/min/BSA 09/11/2018 8:09 [facility] Belarusian AM LABOR UNION BUSINESS REPRESENTATIVE [facility] - [facility] Comment: ----ADDITIONAL INFORMATION---- Estimated GFR calculated using the 2009 CKD_EPI creatinine equation. Specimen Anatomical Collection Method Collection Time Receive d Time (Source) Location / / Volume Laterality Blood (Blood, 09/11/2018 7:04 AM 09/11/19 19 7:25 Venous) LABOR UNION BUSINESS REPRESENTATIVE AM LABOR UNION BUSINESS REPRESENTATIVE Rika Cameron M.D. LAB BLOOD ADD-ON Performing Organization Address City/[facility] Code Phon e Number [facility]IES - [address] [place] [phone] [facility] (ABNORMAL) CBC with Differential (09/11/2018 7:04 AM LABOR UNION BUSINESS REPRESENTATIVE) [facility] gist Method Time Signature Hemoglobin 13.3 11.6 - 09/11/2018 [facility] 15.0 g/dL 7:30 AM LABOR UNION BUSINESS REPRESENTATIVE [facility]ATORIES - [facility] Hematocrit 38.9 35.5 - 09/11/2018 [facility] 44.9 % 7:30 AM LABOR UNION BUSINESS REPRESENTATIVE LABORATORIES - [facility] Erythrocytes 4.38 3.92 - 09/11/2018 [facility] 5.13 7:30 AM LABOR UNION BUSINESS REPRESENTATIVE LABORATORIES - x10(12)/L [facility] MCV 88.8 78.2 - 09/11/2018 [facility] 97.9 fL 7:30 AM LABOR UNION BUSINESS REPRESENTATIVE LABORATORIES [facility] RBC Distrib 13.4 12.2 - 09/11/2018 [facility] Width 16.1 % 7:30 AM LABOR UNION BUSINESS REPRESENTATIVE LABORATORIES - [facility] Platelet Count 194 157 - 371 09/11/2018 [facility] x10(9)/L 7:30 AM LABOR UNION BUSINESS REPRESENTATIVE LABORATORIES - [facility] Leukocytes 2.8 (L) 3.4 - 9.6 09/11/2018 [facility] x10(9)/L 7:30 AM LABOR UNION BUSINESS REPRESENTATIVE LAB[facility]ATORIES - [facility] Neutrophils 1.96 1.56 - 09/11/2018 [facility] 6.45 7:30 AM LABOR UNION BUSINESS REPRESENTATIVE LABORATORIES - x10(9)/L [facility] Lymphocytes 0.29 (L) 0.95 - 09/11/2018 [facility] 3.07 7:30 AM LABOR UNION BUSINESS REPRESENTATIVE LABORATORIES - x10(9)/L [facility] Monocytes 0.26 0.26 - 09/11/2018 [facility] 0.81 7:30 AM LABOR UNION BUSINESS REPRESENTATIVE LABORATORIES - x10(9)/L [facility] Eosinophils 0.24 0.03 - 09/11/2018 [facility] 0.48 7:30 AM LABOR UNION BUSINESS REPRESENTATIVE LABORATORIES - x10(9)/L [facility] Basophils <0.03 0.01 - 09/11/2018 [facility] 0.08 7:30 AM LABOR UNION BUSINESS REPRESENTATIVE LABORATORIES - x10(9)/L [facility] Specimen Anatomical Collection Method Collection Time Receive d Time (Source) Location / / Volume Laterality Blood (Blood, 09/11/2018 7:04 AM 09/11/19 19 7:26 Venous) LABOR UNION BUSINESS REPRESENTATIVE AM LABOR UNION BUSINESS REPRESENTATIVE Rika Cameron M.D. LAB BLOOD ADD-ON Performing Organization Address [facility] Code Phon e Number [facility]IES - [address] [place] [phone] [facility] Bilirubin, Total (09/11/2018 7:04 AM LABOR UNION BUSINESS REPRESENTATIVE) P athologist Signature Bilirubin, 0.7 <=1.2 09/11/2018 [facility] Total, S mg/dL 8:09 AM LABOR UNION BUSINESS REPRESENTATIVE LABORATORIES - [facility] Specimen Anatomical Collection Method Collection Time Receive d Time (Source) Location / / Volume Laterality Blood (Blood, 09/11/2018 7:04 AM 09/11/19 19 7:25 Venous) LABOR UNION BUSINESS REPRESENTATIVE AM LABOR UNION BUSINESS REPRESENTATIVE Rika Cameron M.D. LAB BLOOD ADD-ON Performing Organization Address City/[facility] Phon e Number [facility]IES - [address] [place] [phone] [facility] AST (Aspartate Aminotransferase) (09/11/2018 7:04 AM LABOR UNION BUSINESS REPRESENTATIVE) Patholo gist Method Time Signature Aspartate 15 8 - 43 09/11/2018 [facility] Aminotransferase U/L 8:09 AM LABOR UNION BUSINESS REPRESENTATIVE LABORATORIE S - (AST), S [facility] Specimen Anatomical Collection Method Collection Time Receive d Time (Source) Location / / Volume Laterality Blood (Blood, 09/11/2018 7:04 AM 09/11/19 19 7:25 Venous) LABOR UNION BUSINESS REPRESENTATIVE AM LABOR UNION BUSINESS REPRESENTATIVE Rika Cameron M.D. LAB BLOOD ADD-ON Performing Organization Address City/State/[facility] Phon e Number [facility] - [address] [place] [phone] [facility] Alkaline Phosphatase (09/11/2018 7:04 AM LABOR UNION BUSINESS REPRESENTATIVE) P athologist Signature Alkaline 62 35 - 104 09/11/2018 [facility] Phosphatase, S U/L 9:24 AM LABOR UNION BUSINESS REPRESENTATIVE LABORATORIES - [facility] Specimen Anatomical Collection Method Collection Time Receive d Time (Source) Location / / Volume Laterality Blood (Blood, 09/11/2018 7:04 AM 09/11/19 19 7:25 Venous) LABOR UNION BUSINESS REPRESENTATIVE AM LABOR UNION BUSINESS REPRESENTATIVE Rkia Cameron M.D. LAB BLOOD ADD-ON Performing Organization Address City/[facility]/ZIP Code Phon e Number [facility] - [address] documented in this encounter Visit Diagnoses Diagnosis Waldenstrom's Macroglobulinemia (HCC) documented in this encounter
--- OUTSIDE RECORDS SUMMARY | 2022-07-13 09:08 | XMS_ITS | Encounter Summary ---
:1945 Author Organization [facility] Address [address] [place] [address] Care Team Providers Name Role Phone Unavailable Primary Care Provider Unavailable Reason for Referral Outpatient (Routine) - Closed Specialty Diagnoses / Procedures Referred By Contact Refer red To Contact Hematology Oncology Rika Cameron [place] M.D. [address] [place] [phone] Referral ID Status Reason Start Date Expiration Date Visits Requ ested Visits Authorized [id number] Closed 10/02/2019 10/01/2020 1 1 [employer] Encounter Details Date Type Department Care Team Description 09/26/2019 Orders Only Division of Daisy López's Hematology in A, R.N. Macroglobulinemia (HCC) [place], [place] [address] [place] [address] (Primary Dx) [address] [place] [phone] Social History Tobacco Use Types Packs/Day Years [...] highest level of school Associate degree: [employer] program 03/01/2019 you have completed or the [...]
--- OUTSIDE RECORDS SUMMARY | 2022-07-13 09:08 | XMS_ITS | Encounter Summary ---
:1945 Author Organization [facility] Address [address] [place] [address] Care Team Providers Name Role Phone Unavailable Primary Care Provider Unavailable Encounter Details Date Type Department Care Team Description 12/23/2018 Clinical Communication Division of Hematology Rika Cameron in Sarah Castillo M.D. [address] [place] [phone] Social History Tobacco Use Types Packs/Day Years [...] see her when I am scheduled on [facility] - Mon 03/05 at 3pm. Thanks! Telephone [...] for your time. AO: Call pt at [phone]. documented in this encounter Plan of Treatment Not on filedocumented as of this encounter Visit Diagnoses Not on filedocumented in this encounter
--- OUTSIDE RECORDS SUMMARY | 2022-07-13 09:08 | XMS_ITS | Encounter Summary ---
:1945 Author Organization [facility] Address [address] [place] [address] Care Team Providers Name Role Phone Unavailable Primary Care Provider Unavailable Reason for Visit Reason Comments Please call pt Encounter Details Date Type Department Care Team Description 03/25/2020 Clinical Communication Division of Rika Cameron call pt Hematology in [place], [place] [address] [place] [address] [address] [place] [phone] Social History Tobacco Use Types Packs/Day Years [...] the highest level of school Associate degree: [email or web address] program 03/01/2019 you have completed or the highest degree you have received? Sex Assigned at Date Recorded Female 03/05/2018 7:34 PM CDT documented as of this encounter Miscellaneous Notes Telephone Encounter - Bel Gomez R.N. - 03/28/2020 3:17 PM CDT Returned call to patient. Because of her 's appointments in [place] next week, patient asks to have her labs done Tuesday at the [facility] (not part of the [facility]). That way, her full set [...] been sent yet. Please send to the [facility] She is requesting that we please call her to let her know when the order has been sent: [phone] Or send her a portal message Thank you, Mary Telephone Encounter - Daisy López R.N. - 03/26/2020 8:[address] Brown, Sarah's also was diagnosed with Waldnstrom's with treatment in [place]. Micah, , has appointments on April 04. Sarah would like to draw her labs in [place] (I will arrange in advance of the appointment), but she questions if you could see her in the afternoon on April 04. 1 pm or later? She cannot make the morning appointment. Telephone Encounter - Ann Marie Massey - 03/25/2020 4:29 PM CDT Summer, Please call pt at [phone]. She wanted to speak with a nurse regarding her upcoming appointments. Thank you for your time. documented in this encounter Plan of Treatment Not on filedocumented as of this encounter Visit Diagnoses Not on filedocumented in this encounter
--- OUTSIDE RECORDS SUMMARY | 2022-07-13 09:08 | XMS_ITS | Encounter Summary ---
:1945 Author Organization [facility] Address [address] [place] [address] Care Team Providers Name Role Phone Unavailable Primary Care Provider Unavailable Encounter Details Date Type Department Care Team Description 03/09/2018 Hospital Department of Cameron, Waldenstrom's Macroglobulinemia (HCC); Encounter Laboratory Rika Smith M.D. Hyperlipidemia Medicine and [address] [place] [address] [place] [address] [facility] [phone] [place] (Work) [address] [place] [address] [place], [place] (Fax) [phone] Social History Tobacco Use [...] daily. 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 LAB BLOOD NON ADD-ON Performing Organization Address City/State/ZIP Code Phon e Number [facility] LABORATORIES - [address] [place] [address] [facility] (ABNORMAL) Lipid Panel (03/09/2018 8:44 AM CDT) Patholo gist Method Time Signature Cholesterol, 228 (H) mg/dL 03/09/2018 [facility] Total 9:50 AM CDT [place] Comment: ----REFERENCE VALUE---- Desirable: < 200 Borderline high: 200 - 239 High: > or = 240 Triglycerides 55 mg/dL 03/09/2018 9:50 AM CDT [facility] Comment: ----REFERENCE VALUE---- Normal: <150 Borderline high: 150-199 High: 200-499 Very high: > or =500 Cholesterol, HDL, S 75 >=50 mg/dL 03/09/2018 9:50 AM [facility] Calculated LDL 142 (H) mg/dL 03/09/2018 9:50 AM [facility] Comment: ----REFERENCE VALUE---- Desirable: <100 Above Desirable: 100-129 Borderline high: 130-159 High: 160-189 Very high: > or =190 Cholesterol, Non-HDL, 153 mg/dL 03/09/2018 9:5 0 AM CDT [facility] [place] [facility] Comment: ----REFERENCE VALUE---- [...] City/State/ZIP Code Phon e Number [facility] - [address] [place] [address] [facility] Sodium (03/09/2018 8:44 AM CDT) P athologist Signature Sodium, S 138 135 - 145 03/09/2018 [facility] mmol/L 9:51 AM CDT [facility] Specimen Anatomical Collection Method Collection Time Receive d Time (Source) Location / / Volume Laterality Blood 03/09/2018 8:44 AM 8 9:07 CDT AM CDT Rika Cameron M.D. LAB BLOOD ADD-ON Performing Organization Address City/[facility]/ZIP Code Phon e Number [facility] LABORATORIES - [address] [place] [address] [facility] Potassium (03/09/2018 8:44 AM CDT) P athologist Signature Potassium, S 4.0 3.6 - 5.2 03/09/2018 [facility] mmol/L 9:51 AM CDT LABORATORIES - [facility] Specimen Anatomical Collection Method Collection Time Receive d Time (Source) Location / / Volume Laterality Blood 03/09/2018 8:44 AM 8 9:07 CDT AM CDT Rika Cameron M.D. LAB BLOOD ADD-ON Performing Organization Address City/[facility] Phon e Number [facility]ORATORIES - [address] [place] [address] [facility] Monoclonal Protein Study (03/09/2018 8:44 AM CDT) Component Value Ref Test Analysis Performed At Patholo gist Range Method Time Signature Total Protein, S 7.1 6.3 - 03/09/2018 [facility] 7.9 10:34 AM LABORATORIES - g/dL CDT [facility] Albumin 3.4 3.4 - 03/09/2018 [facility] 4.7 3:28 PM LABORATORIES - g/dL CDT [facility] Alpha-1 Globulin 0.3 0.1 - 03/09/2018 [facility] 0.3 3:28 PM LABORATORIES - g/dL CDT [facility] Alpha-2 Globulin 1.0 0.6 - 03/09/2018 [facility] 1.0 3:28 PM LABORATORIES - g/dL CDT [facility] Beta-Globulin 0.8 0.7 - 03/09/2018 [facility] 1.2 3:28 PM LABORATORIES - g/dL CDT [facility] Gamma-Globulin 1.5 0.6 - 03/09/2018 [facility] 1.6 3:28 PM LABORATORIES - g/dL CDT [facility] A/G Ratio 0.92 03/09/2018 [facility] 3:28 PM LABORATORIES - CDT [facility] M spike 1.4 g/dL 03/09/2018 [facility] 3:28 PM LABORATORIES - CDT [facility] Impression M-spike in gamma fraction. 03/09/2018 [facility] See Immunofixation. 3:28 PM LABORATORI ES - CDT [facility] Immunofixation Monoclonal IgM kappa. 03/10/2018 [facility] Size of monoclonal protein not changed significantly s andria 11/18/2017. 1:39 PM LABORATORIES - Suggest protein electrophoresis only to follow the patient rather than CDT [facility] immunofixation. CAMPUS Specimen Anatomical Collection Method Collection Time Receive d Time (Source) Location / / Volume Laterality Blood 03/09/2018 8:44 AM 8 9:37 CDT AM CDT Rika Cameron M.D. LAB BLOOD ADD-ON Performing Organization Address City/[facility]/ZIP Code Phon e Number [facility]IES - [address] [place] [address] [facility] (ABNORMAL) Immunoglobulin M (IgM) (03/09/2018 8:44 AM CDT) [facility] Method Time Signature Immunoglobulin M 1800 (H) 37 - 286 03/09/2018 [facility] (IgM), S mg/dL 12:20 PM LABORATORIES - CDT [facility] Specimen Anatomical Collection Method Collection Time Receive d Time (Source) Location / / Volume Laterality Blood 03/09/2018 8:44 AM 8 9:37 CDT AM CDT Rika Cameron M.D. LAB BLOOD ADD-ON Performing Organization Address City/State/ZIP Code Phon e Number [facility]ATORIES - [address] [place] [address] [facility] Creatinine with Estimated GFR (MDRD) (03/09/2018 8:44 AM CDT) Analysis Performed At Path logist Time Signature Creatinine 0.74 0.59 - 03/09/2018 [facility] 1.04 mg/dL 9:51 AM CDT LABORATORIES - [facility] eGFR-Non 81 >=60 03/09/2018 [facility] Black/ mL/min/BSA 9:51 AM CDT LABORATORIES - [facility] Comment: ----ADDITIONAL INFORMATION---- Estimated GFR calculated using the 2009 CKD_EPI creatinine equation. eGFR-Black/ >90 >=60 mL/min/BSA 03/09/2018 9:51 [facility] Armenian AM CDT LABORATORIES - [facility] Comment: ----ADDITIONAL INFORMATION---- Estimated GFR calculated using the 2009 CKD_EPI creatinine equation. Specimen Anatomical Collection Method Collection Time Receive d Time (Source) Location / / Volume Laterality Blood 03/09/2018 8:44 AM 8 9:07 CDT AM CDT Rika Cameron M.D. LAB BLOOD ADD-ON Performing Organization Address City/State/ZIP Code Phon e Number [facility] LAB[facility]ATORIES - [address] [place], [place] [address] [facility] (ABNORMAL) CBC with Differential (03/09/2018 8:44 AM CDT) [facility] Method Time Signature Hemoglobin 12.6 11.6 - 03/09/2018 [facility] 15.0 g/dL 9:30 AM CDT LABORATORIES - [facility] Hematocrit 37.7 35.5 - 03/09/2018 [facility] 44.9 % 9:30 AM CDT LABORATORIES - [facility] Erythrocytes 4.27 3.92 - 03/09/2018 [facility] 5.13 9:30 AM CDT LABORATORIES - x10(12)/L [facility] MCV 88.3 78.2 - 03/09/2018 [facility] 97.9 fL 9:30 AM CDT LABORATORIES - [facility] RBC Distrib 13.8 12.2 - 03/09/2018 [facility] Width 16.1 % 9:30 AM CDT LABORATORIES - [facility] Platelet Count 205 157 - 371 03/09/2018 [facility] x10(9)/L 9:30 AM CDT LABORATORIES - [facility] Leukocytes 2.9 (L) 3.4 - 9.6 03/09/2018 [facility] x10(9)/L 9:30 AM CDT LABORATORIES - [facility] Neutrophils 1.94 1.56 - 03/09/2018 [facility] 6.45 9:30 AM CDT LABORATORIES - x10(9)/L [facility] Lymphocytes 0.30 (L) 0.95 - 03/09/2018 [facility] 3.07 9:30 AM CDT LABORATORIES - x10(9)/L [facility] Monocytes 0.32 0.26 - 03/09/2018 [facility] 0.81 9:30 AM CDT LABORATORIES - x10(9)/L [facility] Eosinophils 0.36 0.03 - 03/09/2018 [facility] 0.48 9:30 AM CDT LABORATORIES - x10(9)/L [facility] Basophils <0.03 0.01 - 03/09/2018 [facility] 0.08 9:30 AM CDT LABORATORIES - x10(9)/L [facility] Specimen Anatomical Collection Method Collection Time Receive d Time (Source) Location / / Volume Laterality Blood 03/09/2018 8:44 AM 8 9:08 CDT AM CDT Rika Cameron M.D. LAB BLOOD ADD-ON Performing Organization Address City/State/ZIP Code Phon e Number [facility]ATORIES - [address] [place] [address] [facility] Bilirubin, Total (03/09/2018 8:44 AM CDT) P athologist Signature Bilirubin, 0.8 <=1.2 03/09/2018 [facility] Total, S mg/dL 9:51 AM CDT LABORATORIES - [facility] Specimen Anatomical Collection Method Collection Time Receive d Time (Source) Location / / Volume Laterality Blood 03/09/2018 8:44 AM 8 9:07 CDT AM CDT Rika Cameron M.D. LAB BLOOD ADD-ON Performing Organization Address City/State/ZIP Code Phon e Number [facility]ATORIES - [address] [place] [address] [facility] AST (Aspartate Aminotransferase) (03/09/2018 8:44 AM CDT) Patholo gist Method Time Signature Aspartate 15 8 - 43 03/09/2018 [facility] Aminotransferase U/L 9:51 AM CDT LABORATORIE S - (AST), S [facility] Specimen Anatomical Collection Method Collection Time Receive d Time (Source) Location / / Volume Laterality Blood 03/09/2018 8:44 AM 8 9:07 CDT AM CDT Rika Cameron M.D. LAB BLOOD ADD-ON Performing Organization Address City/State/ZIP Code Phon e Number [facility]IES - [address] [place] [address] [facility] Alkaline Phosphatase (03/09/2018 8:44 AM CDT) P athologist Signature Alkaline 57 55 - 142 03/09/2018 [facility] Phosphatase, S U/L 9:51 AM CDT LAB[facility]ATORIES - [facility] Specimen Anatomical Collection Method Collection Time Receive d Time (Source) Location / / Volume Laterality Blood 03/09/2018 8:44 AM 8 9:07 CDT AM CDT Rika Cameron M.D. LAB BLOOD ADD-ON Performing Organization Address City/State/ZIP Code Phon e Number [facility] LAB[facility]ATORIES - [address] [place] [address] [facility] documented in this encounter Visit Diagnoses Diagnosis Waldenstrom's Macroglobulinemia (HCC) Hyperlipidemia documented in this encounter
--- OUTSIDE RECORDS SUMMARY | 2022-07-13 09:08 | XMS_ITS | Encounter Summary ---
:1945 Author Organization [facility] Address [address] [place] [address] Care Team Providers Name Role Phone Unavailable Primary Care Provider Unavailable Encounter Details Date Type Department Care Team Description 02/27/2018 Clinical Communication Division of Hematology Rika Cameron in Sarah Castillo M.D. [address] [place] [phone] Social History Tobacco Use Types Packs/Day Years [...] (ABNORMAL) Lipid Panel (03/09/2018 8:44 AM CDT) [facility] Method Time Signature Cholesterol, 228 (H) mg/dL 03/09/2018 [facility] Total 9:50 AM CDT [facility] Comment: ----REFERENCE VALUE---- Desirable: < 200 Borderline high: 200 - 239 High: > or = 240 Triglycerides 55 mg/dL 03/09/2018 9:50 AM CDT [facility] Comment: ----REFERENCE VALUE---- Normal: <150 Borderline high: 150-199 High: 200-499 Very high: > or =500 Cholesterol, HDL, S 75 >=50 mg/dL 03/09/2018 9:50 [facility] Calculated LDL 142 (H) mg/dL 03/09/2018 9:50 AM [facility] Comment: ----REFERENCE VALUE---- Desirable: <100 Above Desirable: 100-129 Borderline high: 130-159 High: 160-189 Very high: > or =190 Cholesterol, Non-HDL, 153 mg/dL 03/09/2018 9:5 0 AM CDT [facility] [place] [facility] Comment: ----REFERENCE VALUE---- Desirable: <130 Above Desirable: 130-159 Borderline high: 160-189 High: 190-219 Very high: > or =220 Specimen Anatomical Collection Method Collection Time Receive d Time (Source) Location / / Volume Laterality Blood (Blood, 03/09/2018 8:44 AM 03/09/20 9:07 Venous) CDT AM CDT Rika A Cameron M.D. LAB BLOOD ADD-ON Performing Organization Address City/State/ZIP Code Phon e Number [facility]ORATORIES - [address] [place], [place] [address] [facility] documented in this encounter Visit Diagnoses Diagnosis Hyperlipidemia - Primary documented in this encounter
--- OUTSIDE RECORDS SUMMARY | 2022-07-13 09:09 | XMS_ITS | Encounter Summary ---
:1945 Author Organization [facility] Address [address] [place] [address] Care Team Providers Name Role Phone Unavailable Primary Care Provider Unavailable Encounter Details Date Type Department Care Team Description 03/07/2012 - Hospital Encounter HX RST INFUSION Roni Wharton 03/14/2012 THERAPY E, R.N. [address] [place] [address] Social History Tobacco Use Types Packs/Day Years [...]
--- OUTSIDE RECORDS SUMMARY | 2022-07-13 09:09 | XMS_ITS | Encounter Summary ---
:1945 Author Organization [facility] Address [address] [place] [address] Care Team Providers Name Role Phone Unavailable Primary Care Provider Unavailable Encounter Details Date Type Department Care Team Description 12/28/2011 Hospital Encounter HX NO MAPPING Natividad Monte Phar m.D., R.Ph. [address] [place], [place] [phone] Social History Tobacco Use [...] or slept in a usp (including now)? Sex Assigned at Date Recorded [...]
--- OUTSIDE RECORDS SUMMARY | 2022-07-13 09:09 | XMS_ITS | Encounter Summary ---
:1945 Author Organization [facility] Address [address] [place] [address] Care Team Providers Name Role Phone Unavailable [...]
--- OUTSIDE RECORDS SUMMARY | 2022-07-13 09:09 | XMS_ITS | Encounter Summary ---
:1945 Author Organization [facility] Address [address] [place] [address] Care Team Providers Name Role Phone Unavailable [...]
--- OUTSIDE RECORDS SUMMARY | 2022-07-13 09:09 | XMS_ITS | Encounter Summary ---
:1945 Author Organization [facility] Address [address] [place] [address] Care Team Providers Name Role Phone Unavailable [...]
--- OUTSIDE RECORDS SUMMARY | 2022-07-13 09:09 | XMS_ITS | Encounter Summary ---
:1945 Author Organization [facility] Address [address] [place] [address] Care Team Providers Name Role Phone Elsewhere, Pcp Primary Care Provider Unavailable Encounter Details Date Type Department Care Team Description 11/14/2014 Historical Ophthalmology RST OPH Arron Patricio M.D. [address] [place], [place] [phone] (Wo rk) Social History [...] left eye. CD Reports - [facility] Id: [id number] Status: Fnl documented in this encounter Plan of Treatment Not on filedocumented as of this encounter Visit Diagnoses Not on filedocumented in this encounter Care Teams Deputy Sheriff Chief Relationship Specialty Start Date End Date Elsewhere, Pcp PCP - General Family Medicine 03/04/21 documented as of this encounter
--- OUTSIDE RECORDS SUMMARY | 2022-07-13 09:09 | XMS_ITS | Encounter Summary ---
:1945 Author Organization [facility] Address [address] [place] [address] Care Team Providers Name Role Phone Unavailable [...]
--- OUTSIDE RECORDS SUMMARY | 2022-07-13 09:09 | XMS_ITS | Encounter Summary ---
:1945 Author Organization [facility] Address [address] [place] [address] Care Team Providers Name Role Phone Elsewhere, Pcp Primary Care Provider Unavailable Encounter Details Date Type Department Care Team Description 04/15/2014 Historical Ophthalmology RST OPH Arron Patricio M.D. [address] [place], [place] [phone] (Wo rk) Social History [...] left>right eye CDM Reports - [facility] Id: [id number] Status: Fnl documented in this encounter Plan of Treatment Not on filedocumented as of this encounter Visit Diagnoses Not on filedocumented in this encounter Care Teams Automotive Parts Counter Associate Relationship Specialty Start Date End Date Elsewhere, Pcp PCP - General Family Medicine 03/04/21 documented as of this encounter
--- OUTSIDE RECORDS SUMMARY | 2022-07-13 09:09 | XMS_ITS | Encounter Summary ---
:1945 Author Organization [facility] Address [address] [place] [address] Care Team Providers Name Role Phone Elsewhere, Pcp Primary Care Provider Unavailable Encounter Details Date Type Department Care Team Description 07/12/2013 Historical Ophthalmology RST OPH Arron Patricio M.D. [address] [place], [place] [phone] (Wo rk) Social History [...] both eyes CDM Reports - [facility] Id: [id number] Status: Fnl documented in this encounter Plan of Treatment Not on filedocumented as of this encounter Visit Diagnoses Not on filedocumented in this encounter Care Teams Stores Assistant Relationship Specialty Start Date End Date Elsewhere, Pcp PCP - General Family Medicine 03/04/21 documented as of this encounter
--- OUTSIDE RECORDS SUMMARY | 2022-07-13 09:09 | XMS_ITS | Encounter Summary ---
:1945 Author Organization [facility] Address [address] [place] [address] Care Team Providers Name Role Phone Unavailable [...]
--- OUTSIDE RECORDS SUMMARY | 2022-07-13 09:09 | XMS_ITS | Encounter Summary ---
:1945 Author Organization [facility] Address [address] [place] [address] Care Team Providers Name Role Phone Unavailable Primary Care Provider Unavailable Encounter Details Date Type Department Care Team Description 11/26/2017 Abstract Division of Hematology in Daisy López R.N. [place], [place] [address] [facility] [address] [place] [address] [place] [address] [phone] Social History Tobacco Use Types Packs/Day Years [...]
--- OUTSIDE RECORDS SUMMARY | 2022-07-13 09:09 | XMS_ITS | Encounter Summary ---
:1945 Author Organization [facility] Address [address] [place] [address] Care Team Providers Name Role Phone Unavailable Primary Care Provider Unavailable Reason for Visit Reason Onset Date Comments Outside labs 12/28/2017 Encounter Details Date Type Department Care Team Description 12/28/2017 Clinical Communication Division of Rika Cameron labs Hematology ar Smith M.D. [place], [place] [address] [place] [address] [address] [place] [phone] Social History Tobacco Use Types Packs/Day Years [...]
--- OUTSIDE RECORDS SUMMARY | 2022-07-13 09:09 | XMS_ITS | Encounter Summary ---
:1945 Author Organization [facility] Address [address] [place] [address] Care Team Providers Name Role Phone Elsewhere, Pcp Primary Care Provider Unavailable Encounter Details Date Type Department Care Team Description 06/01/2012 Historical Ophthalmology RST OPH Arron Patricio M.D. [address] [place], [place] [phone] (Wo rk) Social History [...] eye #2 Waldenstrom macroglobulinemia [facility] Id: [id number] Status: Fnl documented in this encounter Plan of Treatment Not on filedocumented as of this encounter Visit Diagnoses Not on filedocumented in this encounter Care Teams Pulp Grinder Relationship Specialty Start Date End Date Elsewhere, Pcp PCP - General Family Medicine 03/04/21 documented as of this encounter
--- OUTSIDE RECORDS SUMMARY | 2022-07-13 09:09 | XMS_ITS | Encounter Summary ---
:1945 Author Organization [facility] Address [address] [place] [address] Care Team Providers Name Role Phone Elsewhere, Pcp Primary Care Provider Unavailable Encounter Details Date Type Department Care Team Description 06/26/2015 Historical Ophthalmology RST OPH Arron Patricio M.D. [address] [place], [place] [phone] (Wo rk) Social History [...] / PLAN Consult requested by: Bereket Espino [id number] #1 Subconjunctival lymphoma, left eye s/p incisional [...] right eye CDM Reports - [facility] Id: [id number] Status: Fnl documented in this encounter Plan of Treatment Not on filedocumented as of this encounter Visit Diagnoses Not on filedocumented in this encounter Care Teams Supervisor Fleshing Relationship Specialty Start Date End Date Elsewhere, Pcp PCP - General Family Medicine 03/04/21 documented as of this encounter
--- OUTSIDE RECORDS SUMMARY | 2022-07-13 09:09 | XMS_ITS | Encounter Summary ---
:1945 Author Organization [facility] Address [address] [place] [address] Care Team Providers Name Role Phone Elsewhere, Pcp Primary Care Provider Unavailable Encounter Details Date Type Department Care Team Description 02/07/2012 Historical Ophthalmology RST OPH Arron Patricio M.D. [address] [place], [place] [phone] (Wo rk) Social History [...] [facility] Id: [id number] Status: Fnl documented in this encounter Plan of Treatment Not on filedocumented as of this encounter Visit Diagnoses Not on filedocumented in this encounter Care Teams Manager Business Information Relationship Specialty Start Date End Date Elsewhere, Pcp PCP - General Family Medicine 03/04/21 documented as of this encounter
--- OUTSIDE RECORDS SUMMARY | 2022-07-13 09:09 | XMS_ITS | Encounter Summary ---
:1945 Author Organization [facility] Address [address] [place] [address] Care Team Providers Name Role Phone Unavailable [...] or relatives? How often do you attend religion or More than 4 times per year 04/09/2022 episcopalian services? Do you belong to any clubs or Yes 04/09/2022 organizations such as religion groups, unions, fraternal or athletic groups, or [...]
--- OUTSIDE RECORDS SUMMARY | 2022-07-13 09:09 | XMS_ITS | Encounter Summary ---
:1945 Author Organization [facility] Address [address] [place] [address] Care Team Providers Name Role Phone Elsewhere, Pcp Primary Care Provider Unavailable Encounter Details Date Type Department Care Team Description 05/16/2017 Historical Ophthalmology RST OPH Arron Patricio M.D. [address] [place], [place] [phone] (Wo rk) Social History [...] right eye CDM Reports - [facility] Id: [id number] Status: Fnl documented in this encounter Plan of Treatment Not on filedocumented as of this encounter Visit Diagnoses Not on filedocumented in this encounter Care Teams [employer] Liaison Officer Relationship Specialty Start Date End Date Elsewhere, Pcp PCP - General Family Medicine 03/04/21 documented as of this encounter
--- OUTSIDE RECORDS SUMMARY | 2022-07-13 09:09 | XMS_ITS | Encounter Summary ---
:1945 Author Organization [facility] Address [address] [place] [address] Care Team Providers Name Role Phone Unavailable Primary Care Provider Unavailable Encounter Details Date Type Department Care Team Description 01/18/2012 - Hospital Encounter HX RST INFUSION Jeff Betancur, 01/25/2012 THERAPY R.N. [address] [place] [address] Social History Tobacco Use Types Packs/Day Years [...]
--- OUTSIDE RECORDS SUMMARY | 2022-07-13 09:09 | XMS_ITS | Encounter Summary ---
:1945 Author Organization [facility] Address [address] [place] [address] Care Team Providers Name Role Phone Elsewhere, Pcp Primary Care Provider Unavailable Encounter Details Date Type Department Care Team Description 01/10/2013 Historical Ophthalmology RST OPH Arron Patricio M.D. [address] [place], [place] [phone] (Wo rk) Social History [...] many times do you More than three fnay es a week 04/09/2022 talk on the phone with family, friends, or neighbors? How often do you get together with friends More than three t imes a week 04/09/2022 or relatives? How often do you attend tenriism or More than 4 times per year 04/09/2022 restoration services? Do you belong to any clubs or Yes 04/09/2022 organizations such as tenriism groups, unions, fraternal or athletic groups, or [...] both eyes CDM Reports - EYEGEN Id: [id number] Status: Fnl documented in this encounter Plan of Treatment Not on filedocumented as of this encounter Visit Diagnoses Not on filedocumented in this encounter Care Teams Power Shovel Operator Relationship Specialty Start Date End Date Elsewhere, Pcp PCP - General Family Medicine 03/04/21 documented as of this encounter
--- OUTSIDE RECORDS SUMMARY | 2022-07-13 09:09 | XMS_ITS | Encounter Summary ---
:1945 Author Organization [facility] Address [address] [place] [address] Care Team Providers Name Role Phone Unavailable Primary Care Provider Unavailable Encounter Details Date Type Department Care Team Description 12/07/2011 - Hospital Encounter HX RST INFUSION Nneka Grier, 12/14/2011 THERAPY R.N. [address] [place] [address] Social History Tobacco Use Types Packs/Day Years [...]
--- OUTSIDE RECORDS SUMMARY | 2022-07-13 09:09 | XMS_ITS | Encounter Summary ---
:1945 Author Organization [facility] Address [address] [place] [address] Care Team Providers Name Role Phone Unavailable Primary Care Provider Unavailable Encounter Details Date Type Department Care Team Description 01/24/2017 - Hospital Encounter HX RST INFUSION Ban Jacome, 01/31/2017 THERAPY R.N. [address] [place] [address] Social History Tobacco Use Types Packs/Day Years [...] daily. 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 0 [...]
--- OUTSIDE RECORDS SUMMARY | 2022-07-13 09:09 | XMS_ITS | Encounter Summary ---
:1945 Author Organization [facility] Address [address] [place] [address] Care Team Providers Name Role Phone Elsewhere, Pcp Primary Care Provider Unavailable Encounter Details Date Type Department Care Team Description 10/24/2014 Historical Ophthalmology RST OPH Arron Patricio M.D. [address] [place], [place] [phone] (Wo rk) Social History [...] left eye. CDM Reports - EYEGEN Id: [id number] Status: Fnl documented in this encounter Plan of Treatment Not on filedocumented as of this encounter Visit Diagnoses Not on filedocumented in this encounter Care Teams Financial Operations Consultant Relationship Specialty Start Date End Date Elsewhere, Pcp PCP - General Family Medicine 03/04/21 documented as of this encounter
--- OUTSIDE RECORDS SUMMARY | 2022-07-13 09:09 | XMS_ITS | Encounter Summary ---
:1945 Author Organization [facility] Address [address] [place] [address] Care Team Providers Name Role Phone Elsewhere, Pcp Primary Care Provider Unavailable Encounter Details Date Type Department Care Team Description 09/14/2012 Historical Ophthalmology RST OPH Arron Patricio M.D. [address] [place], [place] [phone] (Wo rk) Social History [...] Waldenstrom macroglobulinemia CDM Reports - EYEGEN Id: [id number] Status: Fnl documented in this encounter Plan of Treatment Not on filedocumented as of this encounter Visit Diagnoses Not on filedocumented in this encounter Care Teams Tile Edger Relationship Specialty Start Date End Date Elsewhere, Pcp PCP - General Family Medicine 03/04/21 documented as of this encounter
--- OUTSIDE RECORDS SUMMARY | 2022-07-13 09:09 | XMS_ITS | Encounter Summary ---
:1945 Author Organization [facility] Address [address] [place] [address] Care Team Providers Name Role Phone Unavailable [...]
--- OUTSIDE RECORDS SUMMARY | 2022-07-13 09:09 | XMS_ITS | Encounter Summary ---
:1945 Author Organization [facility] Address [address] [place] [address] Care Team Providers Name Role Phone Unavailable [...] daily. 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) [employer] DIETARY SUPPLEMENT Take by mouth daily. 0 [...]
--- OUTSIDE RECORDS SUMMARY | 2022-07-13 09:09 | XMS_ITS | Encounter Summary ---
:1945 Author Organization [facility] Address [address] [place] [address] Care Team Providers Name Role Phone Elsewhere, Pcp Primary Care Provider Unavailable Encounter Details Date Type Department Care Team Description 09/29/2016 Historical Ophthalmology RST OPH Arron Patricio M.D. [address] [place], [place] [phone] (Wo rk) Social History [...] / PLAN Consult requested by: Bereket Espino [id number] #1 Subconjunctival lymphoma, left eye s/p incisional [...] right eye CDM Reports - EYEGEN Id: [id number] Status: Fnl documented in this encounter Plan of Treatment Not on filedocumented as of this encounter Visit Diagnoses Not on filedocumented in this encounter Care Teams Workforce Management Consultant Relationship Specialty Start Date End Date Elsewhere, Pcp PCP - General Family Medicine 03/04/21 documented as of this encounter
--- OUTSIDE RECORDS SUMMARY | 2022-07-13 09:09 | XMS_ITS | Encounter Summary ---
:1945 Author Organization [facility] Address [address] [place] [address] Care Team Providers Name Role Phone Elsewhere, Pcp Primary Care Provider Unavailable Encounter Details Date Type Department Care Team Description 10/16/2014 Historical Ophthalmology RST OPH Arron Patricio M.D. [address] [place], [place] [phone] (Wo rk) Social History [...] the procedure with the patient (or legal security representative and others present during the discussion). The patient understands. All questions answered and consent given. #[address] Waldenstrom [address] Cameron. #3 Cataract, left>right eye Visually significant Plan: Cataract surgery, left eye The alternatives to cataract surgery were discussed in detail with the patient (or legal security representative and others present during the discussion). [...] left>right eye CDM Reports - EYEGEN Id: [id number] Status: Fnl documented in this encounter Plan of Treatment Not on filedocumented as of this encounter Visit Diagnoses Not on filedocumented in this encounter Care Teams Educational Therapist Relationship Specialty Start Date End Date Elsewhere, Pcp PCP - General Family Medicine 03/04/21 documented as of this encounter
--- OUTSIDE RECORDS SUMMARY | 2022-07-13 09:09 | XMS_ITS | Encounter Summary ---
:1945 Author Organization [facility] Address [address] [place] [address] Care Team Providers Name Role Phone Unavailable Primary Care Provider Unavailable Encounter Details Date Type Department Care Team Description 12/28/2011 - Hospital Encounter HX RST INFUSION Doreen Dukes 01/04/2012 THERAPY N, MORTUARY OPERATIONS MANAGER, CNM [address] [place] [phone] Social History Tobacco Use Types Packs/Day Years [...]
--- OUTSIDE RECORDS SUMMARY | 2022-07-13 09:09 | XMS_ITS | Encounter Summary ---
:1945 Author Organization [facility] Address [address] [place] [address] Care Team Providers Name Role Phone Unavailable Primary Care Provider Unavailable Reason for Referral Outpatient (Routine) - Closed Specialty Diagnoses / Procedures Referred By Referred To Contact Contact Hematology Oncology Diagnoses Waldenstrom's Macroglobulinemia (HCC) Rika Cameron [facility] Ana Smith [address] [place] [address] Referral ID Status Reason Start Date Expiration Date Visits Requ ested Visits Authorized [id number] Closed 12/09/2017 06/07/2018 1 1 Encounter Details Date Type Department Care Team Description 12/09/2017 Orders Only Division of Rika Cameron 'oz Hematology me Ana Smith Macroglobulinemia (HCC) [place], [place] [address] [place] [address] [address] [place] [phone] Social History Tobacco Use Types Packs/Day Years [...] Name Type Priority Associated Diagnoses Order S [facility] Hematology office Outpatient Routine Waldenstrom's Expected: visit (clinic) Referral Macroglobulinemia (HCC) (Approximate), Expires: 12/09/2020 documented as of this encounter Results Glucose, Fasting (03/09/2018 8:45 AM CDT) athologist Signature Glucose, P 85 70 - 100 03/09/2018 [facility] mg/dL 9:41 AM CDT LABORATORIES [facility] Last Intake 13 hr 03/09/2018 [facility] 9:08 AM CDT LABORATORIES [facility] Specimen Anatomical Collection Method Collection Time Receive d Time (Source) Location / / Volume Laterality Blood 03/09/2018 8:45 AM 8 9:08 CDT AM CDT Rika Cameron M.D. LAB BLOOD NON ADD-ON Performing Organization Address City/State/ZIP Code Phon e Number [facility] LABORATORIES - [address] [place], [place] [address] [facility] Sodium (03/09/2018 8:44 AM CDT) P athologist Signature Sodium, S 138 135 - 145 03/09/2018 [facility] mmol/L 9:51 AM CDT LABORATORIES - [facility] Specimen Anatomical Collection Method Collection Time Receive d Time (Source) Location / / Volume Laterality Blood 03/09/2018 8:44 AM 8 9:07 CDT AM CDT Rika Cameron M.D. LAB BLOOD ADD-ON Performing Organization Address City/[facility] Phon e Number [facility]IES - [address] [place] [phone] [facility] Potassium (03/09/2018 8:44 AM CDT) P athologist Signature Potassium, S 4.0 3.6 - 5.2 03/09/2018 [facility] mmol/L 9:51 AM CDT LABORATORIES - [facility] Specimen Anatomical Collection Method Collection Time Receive d Time (Source) Location / / Volume Laterality Blood 03/09/2018 8:44 AM 8 9:07 CDT AM CDT Rika Camerno M.D. LAB BLOOD ADD-ON Performing Organization Address City/State/[facility] Code Phon e Number [facility]ATORIES - [address] [place] [phone] [facility] Monoclonal Protein Study (03/09/2018 8:44 AM CDT) Component Value Ref Test Analysis Performed At [facility] gist Range Method Time Signature Total Protein, S 7.1 6.3 - 03/09/2018 [facility] 7.9 10:34 AM LABORATORIES - g/dL CDT [facility] Albumin 3.4 3.4 - 03/09/2018 [facility] 4.7 3:28 PM LABORATORIES - g/dL CDT [facility] Alpha-1 Globulin 0.3 0.1 - 03/09/2018 [facility] 0.3 3:28 PM LABORATORIES - g/dL CDT [facility] Alpha-2 Globulin 1.0 0.6 - 03/09/2018 [facility] 1.0 3:28 PM LABORATORIES - g/dL T [facility] Beta-Globulin 0.8 0.7 - 03/09/2018 [facility] 1.2 3:28 PM LABORATORIES - g/dL T [facility] Gamma-Globulin 1.5 0.6 - 03/09/2018 [facility] 1.6 3:28 PM LABORATORIES - g/dL T [facility] A/G Ratio 0.92 03/09/2018 [facility] 3:28 PM LABORATORIES - [facility] M spike 1.4 g/dL 03/09/2018 [facility] 3:28 PM LABORATORIES - T [facility] Impression M-spike in gamma fraction. 03/09/2018 [facility] See Immunofixation. 3:28 PM LABORATORI ES - T [facility] Immunofixation Monoclonal IgM kappa. 03/10/2018 [facility] Size of monoclonal protein not changed significantly s [place] 11/18/2017. 1:39 PM LABORATORIES - Suggest protein electrophoresis only to follow the patient rather than CDT [facility] immunofixation. CAMPUS Specimen Anatomical Collection Method Collection Time Receive d Time (Source) Location / / Volume Laterality Blood 03/09/2018 8:44 AM 8 9:37 CDT AM CDT Rika Cameron M.D. LAB BLOOD ADD-ON Performing Organization Address City/[facility]/ZIP Code Phon e Number [facility]ATORIES - [address] [place] [address] [facility] (ABNORMAL) Immunoglobulin M (IgM) (03/09/2018 8:44 AM CDT) Patholo gist Method Time Signature Immunoglobulin M 1800 (H) 37 - 286 03/09/2018 [facility] (IgM), S mg/dL 12:20 PM LABORATORIES - T [facility] Specimen Anatomical Collection Method Collection Time Receive d Time (Source) Location / / Volume Laterality Blood 03/09/2018 8:44 AM 8 9:37 CDT AM CDT Rika Cameron M.D. LAB BLOOD ADD-ON Performing Organization Address City/State/[facility] Code Phon e Number [facility]IES - [address] [address] [facility] Creatinine with Estimated GFR (MDRD) (03/09/2018 8:44 AM CDT) Analysis Performed At Path logist Time Signature Creatinine 0.74 0.59 - 03/09/2018 [facility] 1.04 mg/dL 9:51 AM CDT LABORATORIES - [facility] eGFR-Non 81 >=60 03/09/2018 [facility] Black/ mL/min/BSA 9:51 AM CDT LABORATORIES - [facility] Comment: ----ADDITIONAL INFORMATION---- Estimated GFR calculated using the 2009 CKD_EPI creatinine equation. eGFR-Black/ >90 >=60 mL/min/BSA 03/09/2018 9:51 [facility] [place] AM CDT LABORATORIES - [facility] Comment: ----ADDITIONAL INFORMATION---- Estimated GFR calculated using the 2009 CKD_EPI creatinine equation. Specimen Anatomical Collection Method Collection Time Receive d Time (Source) Location / / Volume Laterality Blood 03/09/2018 8:44 AM 8 9:07 CDT AM CDT Rika Cameron M.D. LAB BLOOD ADD-ON Performing Organization Address City/State/ZIP Code Phon e Number [facility]ATORIES - [address] [place], [place] [address] [facility] (ABNORMAL) CBC with Differential (03/09/2018 8:44 AM CDT) [facility] Method Time Signature Hemoglobin 12.6 11.6 - 03/09/2018 [facility] 15.0 g/dL 9:30 AM CDT LABORATORIES - [facility] Hematocrit 37.7 35.5 - 03/09/2018 [facility] 44.9 % 9:30 AM CDT LABORATORIES - [facility] Erythrocytes 4.27 3.92 - 03/09/2018 [facility] 5.13 9:30 AM CDT LABORATORIES - x10(12)/L [facility] MCV 88.3 78.2 - 03/09/2018 [facility] 97.9 fL 9:30 AM CDT LABORATORIES [facility] RBC Distrib 13.8 12.2 - 03/09/2018 [facility] Width 16.1 % 9:30 AM CDT LABORATORIES - [facility] Platelet Count 205 157 - 371 03/09/2018 [facility] x10(9)/L 9:30 AM CDT LABORATORIES [facility] Leukocytes 2.9 (L) 3.4 - 9.6 03/09/2018 [facility] x10(9)/L 9:30 AM CDT LABORATORIES - [facility] Neutrophils 1.94 1.56 - 03/09/2018 [facility] 6.45 9:30 AM CDT LABORATORIES - x10(9)/L [facility] Lymphocytes 0.30 (L) 0.95 - 03/09/2018 [facility] 3.07 9:30 AM CDT LABORATORIES - x10(9)/L [facility] Monocytes 0.32 0.26 - 03/09/2018 [facility] 0.81 9:30 AM CDT LABORATORIES - x10(9)/L [facility] Eosinophils 0.36 0.03 - 03/09/2018 [facility] 0.48 9:30 AM CDT LABORATORIES - x10(9)/L [facility] Basophils <0.03 0.01 - 03/09/2018 [facility] 0.08 9:30 AM CDT LABORATORIES - x10(9)/L [facility] Specimen Anatomical Collection Method Collection Time Receive d Time (Source) Location / / Volume Laterality Blood 03/09/2018 8:44 AM 8 9:08 CDT AM CDT Rika Cameron M.D. LAB BLOOD ADD-ON Performing Organization Address City/[facility]/ZIP Code Phon e Number [facility]ORATORIES - [address] [address] [facility] Bilirubin, Total (03/09/2018 8:44 AM CDT) P athologist Signature Bilirubin, 0.8 <=1.2 03/09/2018 [facility] Total, S mg/dL 9:51 AM CDT LABORATORIES - [facility] Specimen Anatomical Collection Method Collection Time Receive d Time (Source) Location / / Volume Laterality Blood 03/09/2018 8:44 AM 8 9:07 CDT AM CDT Rika Cameron M.D. LAB BLOOD ADD-ON Performing Organization Address City/[facility]/ZIP Code Phon e Number [facility]IES - [address] [address] [facility] AST (Aspartate Aminotransferase) (03/09/2018 8:44 AM CDT) Patholo gist Method Time Signature Aspartate 15 8 - 43 03/09/2018 [facility] Aminotransferase U/L 9:51 AM CDT LABORATORIE S - (AST), S [facility] Specimen Anatomical Collection Method Collection Time Receive d Time (Source) Location / / Volume Laterality Blood 03/09/2018 8:44 AM 8 9:07 CDT AM CDT Rika Cameron M.D. LAB BLOOD ADD-ON Performing Organization Address City/[facility]/ZIP Code Phon e Number [facility]IES - [address] [address] [facility] Alkaline Phosphatase (03/09/2018 8:44 AM CDT) P athologist Signature Alkaline 57 55 - 142 03/09/2018 [facility] Phosphatase, S U/L 9:51 AM CDT LABORATORIES - [facility] Specimen Anatomical Collection Method Collection Time Receive d Time (Source) Location / / Volume Laterality Blood 03/09/2018 8:44 AM 8 9:07 CDT AM CDT Rika Cameron M.D. LAB BLOOD ADD-ON Performing Organization Address City/State/ZIP Code Phon e Number [facility]IES - [address] [address] [facility] documented in this encounter Visit Diagnoses Diagnosis Waldenstrom's Macroglobulinemia (HCC) documented in this encounter
--- OUTSIDE RECORDS SUMMARY | 2022-07-13 09:09 | XMS_ITS | Encounter Summary ---
:1945 Author Organization [facility] Address [address] [place] [address] Care Team Providers Name Role Phone Unavailable [...]
--- OUTSIDE RECORDS SUMMARY | 2022-07-13 09:10 | XMS_ITS | Encounter Summary ---
:1945 Author Organization [facility] Address [address] [place] [address] Care Team Providers Name Role Phone Elsewhere, Pcp Primary Care Provider Unavailable Encounter Details Date Type Department Care Team Description 10/14/2011 Historical Ophthalmology RST OPH Arron Patricio M.D. [address] [place], [place] [phone] (Wo rk) Social History [...] Waldenstrom macroglobulinemia CDM Reports - EYEGEN Id: [id number] Status: Fnl documented in this encounter Plan of Treatment Not on filedocumented as of this encounter Visit Diagnoses Not on filedocumented in this encounter Care Teams Stove Bottom Worker Relationship Specialty Start Date End Date Elsewhere, Pcp PCP - General Family Medicine 03/04/21 documented as of this encounter
--- OUTSIDE RECORDS SUMMARY | 2022-07-13 09:10 | XMS_ITS | Encounter Summary ---
:1945 Author Organization [facility] Address [address] [place] [address] Care Team Providers Name Role Phone Elsewhere, Pcp Primary Care Provider Unavailable Encounter Details Date Type Department Care Team Description 10/28/2011 Historical Ophthalmology RST OPH Arron Patricio M.D. [address] [place], [place] [phone] (Wo rk) Social History [...] Waldenstrom macroglobulinemia CDM Reports - EYEGEN Id: [id number] Status: Fnl documented in this encounter Plan of Treatment Not on filedocumented as of this encounter Visit Diagnoses Not on filedocumented in this encounter Care Teams Chief Lock Operator Relationship Specialty Start Date End Date Elsewhere, Pcp PCP - General Family Medicine 03/04/21 documented as of this encounter
--- OUTSIDE RECORDS SUMMARY | 2022-07-13 09:10 | XMS_ITS | Encounter Summary ---
:1945 Author Organization [facility] Address [address] [place] [address] Care Team Providers Name Role Phone Unavailable Primary Care Provider Unavailable Encounter Details Date Type Department Care Team Description 2011 - Hospital Encounter HX RST INFUSION Doreen Dukes 11/22/2011 THERAPY N, JUNIOR WEB DESIGNER, CNM [address] [place] [phone] Social History Tobacco Use Types Packs/Day Years [...]
--- OUTSIDE RECORDS SUMMARY | 2022-07-13 09:10 | XMS_ITS | Encounter Summary ---
:1945 Author Organization [facility] Address [address] [place] [address] Care Team Providers Name Role Phone Elsewhere, Pcp Primary Care Provider Unavailable Encounter Details Date Type Department Care Team Description 10/07/2011 Historical Ophthalmology RST OPH Arron Patricio M.D. [address] [place], [place] [phone] (Wo rk) Social History [...] REPORT / PLAN Consult requested by: Jhonatan [id number] #1 Subconjunctival mass, less eye Etiology uncertain. [...] Waldenstrom macroglobulinemia CDM Reports - EYEGEN Id: [id number] Status: Fnl documented in this encounter Plan of Treatment Not on filedocumented as of this encounter Visit Diagnoses Not on filedocumented in this encounter Care Teams R And D Lab Technician Relationship Specialty Start Date End Date Elsewhere, Pcp PCP - General Family Medicine 03/04/21 documented as of this encounter
--- OUTSIDE RECORDS SUMMARY | 2022-07-13 09:10 | XMS_ITS | Encounter Summary ---
:1945 Author Organization [facility] Address [address] [place] [address] Care Team Providers Name Role Phone Unavailable Primary Care Provider Unavailable Encounter Details Date Type Department Care Team Description 11/08/2011 Hospital Encounter HX RST BONE MARROW ITC Curt Garcia, MEGAN R.N. [address] [place] [address] Social History Tobacco Use Types Packs/Day Years [...] ?? [phone] 08-Nov-2011 1 7:24 Procedure Note Mialgros Gallego M.D. - 11/19/2017Forma tting of this [...] P athologist Signature HX %PC (Cyto 3 [facility] lg pos) LABORATORIES - [facility] HX Labeling 0.0 [facility] Index LABORATORIES [facility] Comment . 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 ??A ccording to the [employer] Stratification of Myeloma and Risk Adapted Therapy [...] 9:13:33 Blood Plasma Cell Light Chain . [facility] Comment: Monotypic kappa plasma cells pr esent. HX Flow Reviewed By. . [facility] Comment: The monotypic plasma cells are CD19 and CD45 positive. ??In addition,monotypic [place] B-cell lymphocytes are present. ??These findings suggest a lymphoplasmacytic proliferative disorder. Reviewed by: John Ya II, M.D. , Ph.D. 02:28:15 Specimen Anatomical Collection Method Collection Time Receive d Time (Source) Location / / Volume Laterality 11/08/2011 10:40 11/08/2011 AM CDT 10:40 AM CDT Rika Cameron M.D. LAB HISTORICAL ORDERS Performing Organization Address City/State/ZIP Code Phon e Number [facility] LABORATORIES - [address] [place], [place] [address] [facility] documented in this encounter Visit Diagnoses Not on filedocumented in this encounter
--- OUTSIDE RECORDS SUMMARY | 2022-07-13 09:10 | XMS_ITS | Encounter Summary ---
:1945 Author Organization [facility] Address [address] [place] [address] Care Team Providers Name Role Phone Unavailable [...]
[2022-07-13 15:20] LABS: Vitamin B12* 619 pg/mL (243-894)
[2022-07-14 14:45] LABS: Anti-Nuclear Ab(ANA)IgG ELISA None Detected (None Detected)
== END 2022-07-13 08:22 | disposition home or self-care (01) ==
PROVIDERS: PCP Internal Medicine; Visit Provider Nurse Practitioner Family
DX: R20.2 Paresthesia of skin (principal)
CPT/HCPCS: 82607; 84443; 86039

== ENCOUNTER 2022-09-06 09:17 | Outpatient (CLI) | payer MEDICARE, BC, SELFPAY ==
[2022-09-06 11:04] LABS: Cholesterol* 236 mg/dL (90-199); HDL Cholesterol* 65 mg/dL (>=50); LDL Cholesterol Calculated 157 mg/dL (<100); Triglycerides* 69 mg/dL (40-149)
== END 2022-09-06 09:18 | disposition home or self-care (01) ==
LOC: NFLDREF 09:17
PROVIDERS: PCP Internal Medicine; Visit Provider Internal Medicine
DX: I10 Essential (primary) hypertension (principal)
CPT/HCPCS: 80061

== ENCOUNTER 2022-09-16 13:22 | Outpatient (CLI) | payer MEDICARE, BC, SELFPAY ==
--- NOTE | 2022-09-16 13:30 | CRLHL7_ITS ---
For Patients: As a result of the Century Cures Act, medical imaging exams and procedure reports are released immediately into your electronic medical record. You may view this report before your referring provider. If you have questions, please contact your health care provider. DXA BONE MINERAL DENSITY STUDY 09/16/2022 Current height (in): 66.0. Weight (lb): 145.0. Menopause age: 54. Ethnicity: White. 1. Have you had a previous hip or vertebral fracture? No. 2. Have you had any fractures during your adult life which did not result from significant trauma (e.g., auto accident)? Yes. 3. Did either of your parents have a hip fracture? No. 4. Do you smoke? No. 5. Have you ever taken Glucocorticoids? No. 6. Do you have rheumatoid arthritis? No. 7. Do you have secondary osteoporosis? No. 8. Do you drink 3 or more alcoholic drinks per day? No. 9. Are you being treated for osteoporosis? No. 10. Have you ever taken any of the following medications: Actonel, Evista, Fosamax, Miacalcin, Reclast, Boniva, Forteo, HRT (i.e. estrogen/hormone therapy), Protelos, Prolia, Vitamin D, Calcium, other ??? please specify. ANSWER: Yes, vitamin D and calcium. 11. Do you have any of the following medical conditions: Anorexia or bulimia, asthma or emphysema, end stage renal disease, hyperparathyroidism, any seizure disorders, cancer, inflammatory bowel diseases, hysterectomy, other ??? please specify. ANSWER: Yes, cancer. 12. What was your maximum height (inches)? 66. 13. Do you perform weight bearing exercise regularly? Yes. 14. Do you regularly consume dairy products? No. 15. Do you drink caffeinated beverages? No. 16. At what age did your period start? 12. 17. Are you premenopausal? No. 18. How many full term pregnancies have you had? 3. 19. Have you ever missed your period for more than 6 months in a row (not including or menopause)? No. TECHNIQUE: Bone mineral density study was performed using the [employer]. FINDINGS: The results of the study expressed as bone mineral density (BMD) are as follows: Lumbar spine L1 to L4: BMD: 0.776 g/cm2. T-score: -2.5. Z-score: 0.1. Neck Left: BMD: 0.659 g/cm2. T-score: -1.7. Z-score: 0.5. Right: BMD: 0.597 g/cm2. T-score: -2.3. Z-score: -0.1. Total Left: BMD: 0.757 g/cm2. T-score: -1.5. Z-score: 0.4. Right: BMD: 0.724 g/cm2. T-score: -1.8. Z-score: 0.2. IMPRESSION: Osteoporosis. *Comparison exams done prior to 01/2020 were performed on different unit, [facility]. COMPARISON: Compared with scan of 07/10/2018, the bone mineral density has decreased by 0.7 percent at the spine and increased by 1.0 percent at the hips. CIERA HERMOSILLO M.D. Transcribed: 5:45 p.m. [email or web address] be/Dictated by: Ciera Hermosillo MD @ 09/16/2022 4:37:00 PM (Electronically Signed)
== END 2022-09-16 13:23 | disposition home or self-care (01) ==
LOC: RAD 13:23
PROVIDERS: PCP Internal Medicine; Visit Provider Internal Medicine
DX: M85.80 Other specified disorders of bone density and structure, unspecified site (principal); Z78.0 Asymptomatic menopausal state; M81.0 Age-related osteoporosis without current pathological fracture
CPT/HCPCS: 77080

== ENCOUNTER 2022-11-02 09:53 | Outpatient (CLI) | payer MEDICARE, BC, SELFPAY | END 2022-11-02 09:54 | disposition home or self-care (01) | PROVIDERS: PCP Internal Medicine; Referring Provider Internal Medicine; Visit Provider Internal Medicine | DX: R30.0 Dysuria (principal); N39.0 Urinary tract infection, site not specified | CPT/HCPCS: 87086; 87186 ==

== ENCOUNTER 2023-05-16 14:02 | Outpatient (CLI) | payer MEDICARE, BC, SELFPAY | END 2023-05-16 14:03 | disposition home or self-care (01) | LOC: NFLDREF 05-18 16:04 | PROVIDERS: PCP Internal Medicine; Referring Provider Internal Medicine; Visit Provider Internal Medicine | DX: R30.0 Dysuria (principal); N39.0 Urinary tract infection, site not specified | CPT/HCPCS: 87086 ==

== ENCOUNTER 2023-06-03 10:23 | Outpatient (CLI) | payer MEDICARE, BC, SELFPAY | END 2023-06-03 10:24 | disposition home or self-care (01) | LOC: NFLDREF 06-07 12:20 | PROVIDERS: PCP Internal Medicine; Referring Provider Internal Medicine; Visit Provider Physician Assistant | DX: R39.9 Unspecified symptoms and signs involving the genitourinary system (principal) | CPT/HCPCS: 87086 ==

== ENCOUNTER 2023-07-05 08:08 | Outpatient (CLI) | payer MEDICARE, BC, SELFPAY | END 2023-07-05 08:09 | disposition home or self-care (01) | PROVIDERS: PCP Internal Medicine; Visit Provider Internal Medicine | DX: R53.83 Other fatigue (principal); I10 Essential (primary) hypertension | CPT/HCPCS: 80053; 80061 ==

== ENCOUNTER 2023-10-11 09:15 | Outpatient (CLI) | payer MEDICARE, BC, SELFPAY ==
--- OUTSIDE RECORDS SUMMARY | 2023-10-12 06:32 | XMS_ITS | Encounter Summary ---
Author Name Unknown Organization [facility] Address [address] [place] [address] Care Team Providers Care Local Az Truck Driver Name Role Phone Elsewhere, Pcp Primary Care Provider Unavailabl e Encounter Details Date Type Department Care Team (Late st Contact Info) Description 06/13/2023 Orders Only Division of Hematology in [place], [place] [address] [place] [address] Woo Elias Social History Tobacco Use Types Packs/Day Years Used Date Smoking Tobacco: Never Smokeless Tobacco: Never Alcohol Use Standard Drinks/Week Comments No 0 (1 standard drink = 0.6 oz pur e alcohol) Humiliation, Afraid, Rape, and Kick questionnair e Answer Date Recorded Within the last year, have y ou been afraid of your partner or ex-partner? No 10/12/2022 Within the last year, have y ou been humiliated or emotionally abused in other ways by your partner or ex-partner? No Within the last year, have y ou been kicked, hit, slapped, or otherwise physically hurt by your partner or ex-partner? No 10/12/2022 Within the last year, have y ou been raped or forced to have any kind of sexual activity by your partner or ex-partner? No 10/12/2022 Social Connection and Isolat ion Panel [NHANES] Answer Date Recorded In a typical week, how many times do you talk on the phone with family, friends, or neighbors? More than three times a week 10/12/2022 How often do you get togethe r with friends or relatives? Twice a week 10/12/2022 How often do you attend chur ch or sabianism services? More than 4 times per year 10/12/2022 Do you belong to any clubs o r organizations such as samaritan groups, unions, fraternal or athletic groups, or school groups? Yes 10/12/2022 How often do you attend meet ings of the clubs or organizations you belong to? More than 4 times per year 10/12/2022 Are you , , di vorced, , never , or living with a partner? 10/12/2022 AUDIT-C Answer Date Recorded Q1: How often do you have a drink containing alc ohol? Never 10/12/2022 Average Number of Drinks Not on file 023 Frequency of Binge Drinking Not on file 09/23 Overall Financial Resource Strain (CARDIA) Answe r Date Recorded How hard is it for you to pa y for the very basics like food, housing, medical care, and heating? Not hard at all 10/12/2022 [facility] [place] of Occupat ional Health - Occupational Stress Questionnaire Answer Date Recorded Do you feel stress - tense, restless, nervous, or anxious, or unable to sleep at night because your mind is troubled all the time - these days? Not at all 10/12/2022 Exercise Vital Sign Answer Date Recorde d On average, how many days pe r week do you engage in moderate to strenuous exercise (like a brisk walk)? 1 day 10/12/2022 On average, how many minutes do you engage in exercise at this level? 20 min 10/12/2022 Hunger Vital Sign Answer Date Recorded Within the past 12 months, y ou worried that your food would run out before you got the money to buy more. Never true 10/12/19 23 Within the past 12 months, t he food you bought just didn't last and you didn't have money to get more. Never true 10/12/2022 PRAPARE - Transportation Answer Date Re corded In the past 12 months, has l ack of transportation kept you from medical appointments or from getting medications? No 09/23 In the past 12 months, has l ack of transportation kept you from meetings, work, or from getting things needed for daily living? No 10/12/2022 Housing Stability Vital Sign Answer Abad e Recorded In the last 12 months, was t here a time when you were not able to pay the mortgage or rent on time? No 10/12/2022 In the last 12 months, how many places have you lived? 1 10/12/2022 In the last 12 months, was t here a time when you did not have a steady place to sleep or slept in a mcc (including now)? No 10/12/2022 Nutrition Answer Date Recorded Nutrition: EVOO Fat Source No 10/12 On average, how many serving s of fruits and vegetables do you eat per day (serving size is equal to 1 cup or approximately the size of a tennis ball)? 4-5 10/12/2022 Dental Answer Date Recorded Dental: Regular Dentist Yes 10/25/19 Employment Answer Date Recorded Employment status Retired 10/12/2022 Education Answer Date Recorded What is the highest level of school you have completed or the highest degree you have received? Associate degree: occupational, technical, or vocational program 04/02/2020 Sex and Gender Information Value Date Recorded Sex Assigned at Female 03/05/2018 7:34 PM CDT Gender Identity Female 03/05/2018 7:34 PM CDT Sexual Orientation Straight 03/05/2018 7: 34 PM CDT documented as of this encounter Plan of Treatment Upcoming Encounters Date Type Department Care Team (Late st Contact Info) Description 10/18/2023 2:00 PM OPERATIONS/DISPATCH Telemedicine Division of Hematology in [place], [place] [address] [place] [address] Arturo Aleman M.D. [address] [place] [address] documented as of this encounter Visit Diagnoses Not on filedocumented in this encounter Care Teams Local Az Truck Driver Relationship Specialty Start Date End Date Elsewhere, Pcp PCP - General Internal Medicine 08/09/22 documented as of this encounter
--- OUTSIDE RECORDS SUMMARY | 2023-10-12 06:32 | XMS_ITS | Referral Summary ---
Author Name Unknown Organization [facility] Address [address] [place] [address] Care Team Providers Care Overnight Babysitter Name Role Phone Elsewhere, Pcp Primary Care Provider Unavailabl e Source Comments Patient records contain information from all sites at [facility]. For routine questions regarding patient records, call [phone] during business hours, M-F 8:00 AM - 5:00 PM Central Time. Record requests for emergency care only can be directed to [phone] at any time.[facility] Encounters Date Type Department Care Team Description 10/05/2023 Clinical Communication Division of Hematology in [place], [place] [address] [place] [address] Arturo Aleman M.D. Send Treatment Letter CORTES 10/03/2023 7:03 AM BASKET ASSEMBLER - 10/03/2023 11:59 PM [facility] Hospital Encounter Department of Laboratory Medicine and Pathology, [facility], in [place], [place] [address] [place] [address] Arturo Aleman M.D. Waldenstrom's Macroglobulinemia (HCC) Discharge Disposition: Home or Self Care from Last 3 Months Allergies No known active allergies Medications Medication Sig Dispensed Refills Start Date End Date Status CALCIUM ORAL Take 1 capsule by mouth daily. MICROCRYSTALLINE HYDROXYAPATITE Calcium supplement 0 12/07/2016 Active omega-3 fatty acids/fish oil (OMEGA 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) Take 2 capsules by mouth daily. OmegaGenics by [employer] 0 12/07/2016 Active TURMERIC ROOT EXTRACT ORAL Take 1 tablet by mouth as needed. 0 04/26/2017 Active cholecalciferol (VITAMIN D3) 125 mcg (5,000 Unit) tablet Take 1 tablet by mouth daily. 0 07/12/2013 Active magnesium oxide (MAG-OX) 400 mg (241.3 mg magnesium) tablet daily. 0 Active vit A and D3 in cod liver oiL 1,250-135 unit capsule daily. 0 Active aspirin [address] tablet Take 1 tablet (81 mg total) by mouth daily. 31 tablet 0 04/22/2023 Active atorvastatin (LIPITOR) 40 mg tablet Take 1 tablet (40 mg total) by mouth daily. 30 tablet 0 04/22/2023 Active cephalexin (KEFLEX) 500 mg capsule Take 1 tablet by mouth 3 (three) times a day with meals. 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 More than 4 times per year 10/12/2022 Do you belong to any clubs o r organizations such as sikhism groups, unions, fraternal or athletic groups, or [...] and heating? Not hard at all 10/12/2022 [facility] of Occupat ional Health - Occupational Stress [...] or slept in a assisted (including now)? No 10/12/2022 Nutrition Answer Date [...] Orientation Straight 03/05/2018 7: 34 PM CDT Last Filed Vital Signs Vital Sign Reading Time Taken Comments Blood Pressure 172/92 06/15/2023 10:53 AM CDT Pulse 75 06/15/2023 10:53 AM CDT Temperature 36.8 ??C (98.2 ??F) 04/22/2023 11:59 AM C DT Respiratory Rate 12 04/22/2023 3:30 PM CDT Oxygen Saturation 94% 04/22/2023 3:30 PM CDT Inhaled Oxygen Concentration - - Weight 65 kg (143 lb 4.8 oz) 06/15/2023 10:53 AM CDT Height 162.2 cm (5' 3.86) 06/15/2023 10:53 AM C DT Body Mass Index 24.71 06/15/2023 10:53 AM CDT Plan of Treatment Upcoming Encounters Date Type Department Care Team (Late st Contact Info) Description 10/18/2023 2:00 PM BASKET ASSEMBLER Telemedicine Division of Hematology in [place], [place] [address] [place] [address] Arturo Aleman M.D. [address] [place] [address] Medical Devices Implanted Type Area Office Systems Technology Instructor Device Identifier Shelf Expiration Date Model / Serial / Lot Breast Other Breast Other Right: Breast Description:Marker Conversions - Default Historical Implant Device Implanted:11/04 (Quantity not on file) Mesh or Patch Abdomen Description:Body Location - Abdominal. Device Status Text - MeshPatch. Lens Nasir 17.0d X 6.0mm - [id number] Implanted:Qty: 1 on 10/23/2014 Ocular Lens Other/Legacy - See Implant Description [employer] Description:Device Manufactu rer - [employer]. Body Location - Other. Left. Device Status Text - [id number]. Lens Tcn [id number] Bicnvx +17.5d - [id number] - [id number] Implanted:Qty: 1 on 03/04/2021 [facility] Right: Eye [employer] (Previously GUY) 11/02/2024 [id number] / [id number] / Care Teams Overnight Babysitter Relationship Specialty Start Date End Date Elsewhere, Pcp PCP - General Internal Medicine 08/09/22
--- OUTSIDE RECORDS SUMMARY | 2023-10-12 06:32 | XMS_ITS | Clinical Summary ---
Author Name Unknown Organization [facility] Address [address] [place] [address] Care Team Providers Care Lube Man Name Role Phone Elsewhere, Pcp Primary Care Provider Unavailabl e Source Comments Patient records contain information from all sites at [facility]. For routine questions regarding patient records, call [phone] during business hours, M-F 8:00 AM - 5:00 PM Central Time. Record requests for emergency care only can be directed to [phone] at any time.[facility] Allergies No known active allergies Medications Medication Sig Dispensed Refills Start Date End Date Status CALCIUM ORAL Take 1 capsule by mouth daily. MICROCRYSTALLINE HYDROXYAPATITE Calcium supplement 0 12/07/2016 Active omega-3 fatty acids/fish oil (OMEGA 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) Take 2 capsules by mouth daily. 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 Send Treatment Letter CORTES 10/03/2023 7:03 AM TEXTILES SALES REPRESENTATIVE - 10/03/2023 11:59 PM TEXTILES SALES REPRESENTATIVE Hospital Encounter Department of Laboratory Medicine and Pathology, [facility], in [place], [place] [address] [place] [address] Arturo Aleman M.D. Waldenstrom's Macroglobulinemia (HCC) Discharge Disposition: Home or Self Care from Last 3 Months Family History Medical History Relation Name Comments Coronary artery disease Father Rosie Colon cancer Mother Fanny Delcid 84 yrs. Breast cancer Mother's Sister Kenyon lancaster 80 yrs Glaucoma Sister Amblyopia Neg Hx Blindness Neg Hx Macular degeneration Neg Hx Strabismus Neg Hx Relation Name Status Comments Father Rosie Mother Fanny Delcid Mother's Sister Kenyon lancaster Sister Social History Tobacco Use Types Packs/Day [...] often do you attend chur ch or hoahaoism services? More than 4 times per year 10/12/2022 Do you belong to any clubs o r organizations such as islam groups, unions, fraternal [...] and heating? Not hard at all 10/12/2022 [facility] [place] of Occupat ional Health - Occupational Stress [...] money to buy more. Never true 10/12/19 Within the past 12 months, t he [...] slept in a senior living (including now)? No 10/12/2022 Nutrition Answer Date [...] st Contact Info) Description 10/18/2023 2:00 PM TEXTILES SALES REPRESENTATIVE Telemedicine Division of Hematology in [place], [place] [address] [place] [phone] Arturo Aleman M.D. [address] [place] [phone] Health Maintenance Due Date Last Done Comments Hepatitis C Screening 1945 COVID-19 Vaccine (#1) 1949 Zoster Vaccines (1 of 2) 11/16/1963 Pneumococcal vaccine (65+ years) (3 of 3 - PCV) 09/25/2016 09/25/2015, 01/30/2003 Influenza Vaccine (#1) 2023 Depression Screening (Annual PHQ-2) 08/22/2023 Fall Risk Screen (Annual) 08/22/2023 Office Visit for Blood Pressure Check / Re-check 09/15/2023 06/15/2023 DTaP,Tdap,and Td Vaccines (2 - Td or Tdap) 07/16/2030 07/16/2020, 04/16/2010, 01/30/2003 Mammogram Discontinued 03/22/2016 (Perf ormed elsewhere), 10/08/2015, 10/02/2012, Additional history exists HPV Vaccines Aged Out No longer eligi ble based on patient's age to complete this topic Medical Devices Implanted Type Area Fisher Spear Device Identifier Shelf Expiration Date Model / Serial / Lot Breast Other Breast Other Right: Breast Description:Marker Conversions - Default Historical Implant Device Implanted:11/04 (Quantity not on file) Mesh or Patch Abdomen Description:Body Location - Abdominal. Device Status Text - MeshPatch. Lens Nasir 17.0d X 6.0mm - [id number] Implanted:Qty: 1 on 10/23/2014 Ocular Lens Other/Legacy - See Implant Description [employer] Description:Device Manufactu rer - [employer]. Body Location - Other. Left. Device Status Text - [id number]. Lens Tcn [id number] Bicnvx +17.5d - [id number] - [id number] Implanted:Qty: 1 on 03/04/2021 by Arron Patricio M.D. at [facility] Ocular Lens Right: Eye [employer] (Previously GUY) 11/02/2024 [id number] / [id number] / Care Teams Lube Man Relationship Specialty Start Date End Date Elsewhere, Pcp PCP - General Internal Medicine 08/09/22
--- OUTSIDE RECORDS SUMMARY | 2023-10-12 06:32 | XMS_ITS | Encounter Summary ---
Author Name Unknown Organization [facility] Address [address] [place] [address] Care Team Providers Care Tip Banding Machine Operator Name Role Phone Elsewhere, Pcp Primary Care Provider Unavailabl e Reason for Visit * Outpatient (Routine) - Closed Specialty Diagnoses / Procedures Referred By Radha ge Referred To Contact Ophthalmology Elana Fitch M.D. [address] [place] [address] [facility] Referral ID Status Reason Start Date Expiration Date Visits Re quested Visits Authorized [id number] Closed 04/11/2023 04/10/2026 1 1 Encounter Details Date Type Department Care Team (Latest Contact Info) Description 05/18/2023 11:15 AM CDT Virtual Visit Department of Ophthalmology in [place], [place] [address] [place] [phone] Elana Fitch M.D. [address] [place] [phone] Stroke (HCC) (Primary Dx) Social History Tobacco Use Types Packs/Day Years [...] often do you attend chur ch or pentecostal services? More than 4 times per year 10/12/2022 Do you belong to any clubs o r organizations such as yarsani groups, unions, fraternal [...] and heating? Not hard at all 10/12/2022 [facility] [place] of Occupat ional Health - Occupational Stress [...] or slept in a prison (including now)? No 10/12/2022 Nutrition Answer Date [...] documented as of this encounter Progress Notes * Elana Fitch M.D. - 05/18/2023 11:15 AM CDT Spoke with her on the phone, had a recent normal eye exam locally as well. Recommend following up with neurology regarding stroke work up. She will continue with routine eye care locally, we'd be happy to see her back with any change in symptoms or questions. documented in this encounter Plan of Treatment Upcoming Encounters Date Type Department Care Team (Late st Contact Info) Description 10/18/2023 2:00 PM BAND TEACHER Telemedicine Division of Hematology in [place], [place] [address] [place] [address] Arturo Aleman M.D. [address] [place] [address] documented as of this encounter Visit Diagnoses Diagnosis Stroke (HCC)- Primary documented in this encounter Care Teams Tip Banding Machine Operator Relationship Specialty Start Date End Date Elsewhere, Pcp PCP - General Internal Medicine 08/09/22 documented as of this encounter
--- OUTSIDE RECORDS SUMMARY | 2023-10-12 06:32 | XMS_ITS | Encounter Summary ---
Author Name Unknown Organization [facility] Address [address] [place] [address] Care Team Providers Care Fish Housekeeper Name Role Phone Elsewhere, Pcp Primary Care Provider Unavailabl e Reason for Visit * Reason Onset Date Comments Send Treatment Letter CORTES 10/05/2023 Encounter Details Date Type Department Care Team (Latest Contact Info) Description 10/05/2023 Clinical Communication Division of Hematology in [place], [place] [address] [place] [address] Arturo Aleman M.D. [address] [place] [address] Send Treatment Letter CORTES Social History Tobacco Use Types Packs/Day Years [...] 10/12/2022 How often do you attend chur or presybeterian services? More than 4 times per year 10/12/2022 Do you belong to any clubs o r organizations such as synagogue groups, unions, fraternal [...] and heating? Not hard at all 10/12/2022 [facility] of Occupat ional Health - [...] or slept in a usp (including now)? No 10/12/2022 Nutrition Answer Date [...] st Contact Info) Description 10/18/2023 2:00 PM RESIDENT CARE AIDE Telemedicine Division of Hematology in [place], [place] [address] [place] [address] Arturo Aleman M.D. [address] [place] [address] documented as of this encounter Visit Diagnoses Not on filedocumented in this encounter Care Teams Fish Housekeeper Relationship Specialty Start Date End Date Elsewhere, Pcp PCP - General Internal Medicine 08/09/22 documented as of this encounter
--- OUTSIDE RECORDS SUMMARY | 2023-10-12 06:32 | XMS_ITS | Encounter Summary ---
Author Name Unknown Organization [facility] Address [address] [place] [address] Care Team Providers Care Health Information Clerk Name Role Phone Elsewhere, Pcp Primary Care Provider Unavailabl e Encounter Details Date Type Department Care Team (Latest Contact Info) Description 06/13/2023 3:15 PM CDT Clinical Communication Virtual Review in [place], [place] [address] [place], [place] [phone] Social History Tobacco Use Types Packs/Day Years [...] often do you attend chur ch or christianity services? More than 4 times per year 10/12/2022 Do you belong to any clubs o r organizations such as anabaptism groups, unions, fraternal [...] and heating? Not hard at all 10/12/2022 [facility] of Occupat ional Health - Occupational [...] or slept in a retirement (including now)? No 10/12/2022 Nutrition Answer Date [...] st Contact Info) Description 10/18/2023 2:00 PM WORKERS COMPENSATION MANAGER Telemedicine Division of Hematology in [place], [place] [address] [place] [address] Arturo Aleman M.D. [address] [place] [address] documented as of this encounter Visit Diagnoses Not on filedocumented in this encounter Care Teams Health Information Clerk Relationship Specialty Start Date End Date Elsewhere, Pcp PCP - General Internal Medicine 08/09/22 documented as of this encounter
--- OUTSIDE RECORDS SUMMARY | 2023-10-12 06:32 | XMS_ITS | Clinical Summary ---
Author Name Unknown Organization [facility] Address [place], [place] [address] Care Team Providers Care Spreader Box Operator Name Role Phone Brijesh Ken MD Primary Care Provider Allergies No known active allergies Medications Medication Sig Dispensed Refills Start Date End Date Status FISH OIL 1,000 MG CAPIndications:Palpita tions 2 bid (500 mg EPA + DHA per capusule) 0 01/02/2007 Active COQ10 SG 100 100 MG-100 UNIT CAPIndications:Palpita tions one daily 0 01/02/2007 Active GARLIC 400 MG TAB, DELAYED RELEASE two tabs daily 0 06/25/2008 Activ e VITAMIN D-3 400 UNIT TAB taking 5000 IU daily 0 06/25/2009 Active multivitamin (MVI) tablet Take 1 tablet by mouth once daily. 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 Freitas Gets intermittan Retuxan treatment when Hemoglobin<10.0 or IGA > 6000 Immunizations Name Administration Dates Next Due Pneumococcal Poly,23-Valent (Pneumovax) 01/31/20 03 Td (Age >=7 Years) 01/30/2003 Td, Preservative Free (age >= 7 Years) 0 Family History Medical History Relation Name Comments Heart Disease Father Cancer-colon Mother Cancer Sister uterine cancer Relation Name Status Comments Father (Age 80) CHF Mother (Age 85) colon canc er Sister Social History Tobacco Use Types Packs/Day Years Used Date Smoking Tobacco: Never Tobacco Cessation:Counseling Given: Yes Alcohol Use Standard Drinks/Week Comments No 0 (1 standard drink = 0.6 oz pur e alcohol) Sex and Gender Information Value Date Recorded Sex Assigned at Not on file Gender Identity Not on file Sexual Orientation Not on file Obstetrics History Para Term AB IAB SAB Ectopic Multiple Livin g Live Births 4 3 2 1 1 0 1 0 0 3 Date Outcome GA Total Labor Labor/2nd/3rd Weight Sex Delivery Anes PTL Izzy A1 A5 Name Cl in SAB Term Term Last Filed Vital Signs Vital Sign Reading Time Taken Comments Blood Pressure 158/79 08/31/2014 2:51 PM TYPING SECTION CHIEF Pulse 76 08/31/2014 2:51 PM TYPING SECTION CHIEF Temperature 36.8 ??C (98.2 ??F) 08/31/2014 2:51 PM CS T Respiratory Rate - - Oxygen Saturation 97% 08/31/2014 2:51 PM TYPING SECTION CHIEF Inhaled Oxygen Concentration - - Weight 71.7 kg (158 lb) 08/31/2014 2:51 PM TYPING SECTION CHIEF Height 165.1 cm (5' 5) 07/11/2009 8:05 AM TYPING SECTION CHIEF Body Mass Index 26.29 07/11/2009 8:05 AM TYPING SECTION CHIEF Plan of Treatment Health Maintenance Due Date Last Done Comments COVID-19 vaccine series (#1) 05/18/1945 Tdap 11/16/1955 Depression screening for age 12+ 1956 BMI (ht and wt on same day) for age 18+ 1962 Hepatitis C screening for age 18-79 1962 Zoster (shingles) series for age 50+ (1 of 2) 1994 Pneumococcal series for age 65+ (2 of 2 - PCV) 2009 01/30/2003 Tetanus booster 04/16/2020 04/16/2010, 01/30/2003 Influenza for age 65+ 04/22/2023 DEXA/DXA scan for age 65+ Completed 11/04/2009, Care Teams Spreader Box Operator Relationship Specialty Start Date End Date Brijesh Ken MD [address] [place] [address] PCP - General 08/31/14
--- OUTSIDE RECORDS SUMMARY | 2023-10-12 06:32 | XMS_ITS | Encounter Summary ---
Author Name Unknown Organization [facility] Address [address] [place] [address] Care Team Providers Care Hay Rake Operator Name Role Phone Elsewhere, Pcp Primary Care Provider Unavailabl e Encounter Details Date Type Department Care Team (Latest Contact Info) Description 10/03/2023 7:03 AM MANAGER RETIREMENT - 10/03/2023 11:59 PM [facility] Hospital Encounter Department of Laboratory Medicine and Pathology, [facility] in [place], [place] [address] [place] [address] Arturo Aleman M.D. [address] [place] [address] Waldenstrom's Macroglobulinemia (HCC) Discharge Disposition: Home or Self Care Social History Tobacco Use Types Packs/Day Years [...] How often do you attend chur or confucianist services? More than 4 times per year 10/12/2022 Do you belong to any clubs o r organizations such as scientology groups, unions, fraternal [...] and heating? Not hard at all 10/12/2022 [facility] - Occupational Stress [...] or slept in a fdc (including now)? No 10/12/2022 Nutrition Answer Date [...] daily. MICROCRYSTALLINE HYDROXYAPATITE Calcium supplement 0 12/07/2016 cephalexin (KEFLEX) 500 mg capsule Take 1 tablet by mouth 3 (three) times a day with meals. 0 06/03/2023 cholecalciferol (VITAMIN D3) 125 mcg (5,000 Unit) tablet Take 1 tablet by mouth daily. 0 07/12/2013 estradioL (ESTRACE) 0.1 mg/g (0.01%) vaginal cream 0 05/26/2023 magnesium oxide (MAG-OX) 400 mg (241.3 mg magnesium) tablet daily. 0 omega-3 fatty acids/fish oil (OMEGA 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) Take 2 capsules by mouth daily. Omega[employer]ics by [employer] 0 12/07/2016 sulfamethoxazole-trim ethoprim (BACTRIM DS) 800-160 mg per tablet TAKE 1 TABLET BY MOUTH TWICE DAILY FOR UTI 0 05/16/2023 TURMERIC ROOT EXTRACT ORAL Take 1 tablet by mouth as needed. 0 04/26/2017 vit A and D3 in cod liver oiL 1,250-135 unit capsule daily. 0 documented as of this encounter Plan of Treatment Upcoming Encounters Date Type Department Care Team (Late st Contact Info) Description 10/18/2023 2:00 PM MANAGER RETIREMENT Telemedicine Division of Hematology in [place], [place] [address] [place] [address] Arturo Aleman M.D. [address] [place] [address] Scheduled Orders Name Type Priority Associated Diagnoses Orde r Schedule Reticulocytes Lab Routine Waldenstrom's Macroglobulinemia (HCC) Once for 1 Occurrences starting 10/03/2023 until 10/03/2023 Monoclonal Gammopathy Diagnostic Lab Routine Waldenstrom's Macroglobulinemia (HCC) Once for 1 Occurrences starting 10/03/2023 until 10/03/2023 Immunoglobulins (IgG, IgA, and IgM) Lab Routine Waldenstrom's Macroglobulinemia (HCC) Once for 1 Occurrences starting 10/03/2023 until 10/03/2023 Viscosity Lab Routine Waldenstrom's Macroglobulinemia (HCC) Once for 1 Occurrences starting 10/03/2023 until 10/03/2023 Alkaline Phosphatase Lab Routine Waldenstrom's Macroglobulinemia (HCC) Once for 1 Occurrences starting 10/03/2023 until 10/03/2023 AST (Aspartate Aminotransferase) Lab Routine Waldenstrom's Macroglobulinemia (HCC) Once for 1 Occurrences starting 10/03/2023 until 10/03/2023 Bilirubin, Total Lab Routine Waldenstrom's Macroglobulinemia (HCC) Once for 1 Occurrences starting 10/03/2023 until 10/03/2023 Calcium, Total Lab Routine Waldenstrom's Macroglobulinemia (HCC) Once for 1 Occurrences starting 10/03/2023 until 10/03/2023 CBC with Differential, Blood Lab Routine Waldenstrom's Macroglobulinemia (HCC) Once for 1 Occurrences starting 10/03/2023 until 10/03/2023 Creatinine with Estimated GFR Lab Routine Waldenstrom's Macroglobulinemia (HCC) Once for 1 Occurrences starting 10/03/2023 until 10/03/2023 LD (Lactate Dehydrogenase) Lab Routine Waldenstrom's Macroglobulinemia (HCC) Once for 1 Occurrences starting 10/03/2023 until 10/03/2023 Potassium Lab Routine Waldenstrom's Macroglobulinemia (HCC) Once for 1 Occurrences starting 10/03/2023 until 10/03/2023 documented as of this encounter Visit Diagnoses Diagnosis Waldenstrom's Macroglobulinemia (HCC) documented in this encounter Care Teams Hay Rake Operator Relationship Specialty Start Date End Date Elsewhere, Pcp PCP - General Internal Medicine 08/09/22 documented as of this encounter
--- OUTSIDE RECORDS SUMMARY | 2023-10-12 06:32 | XMS_ITS ---
Author Name Unknown Organization [facility] Address [address] [place] [address] Care Team Providers Care Traveling Sales Executive Name Role Phone Unavailable Unavailable Unavailable Surgery Details Not on file Complications Check Surgery Details section. Procedure Estimated Blood Loss Check Surgery Details section. Procedure Findings Check Surgery Details section. Procedure Specimens Taken Check Surgery Details section.
--- OUTSIDE RECORDS SUMMARY | 2023-10-12 06:32 | XMS_ITS | Encounter Summary ---
Author Name Unknown Organization [facility] Address [address] [place] [address] Care Team Providers Care Electronic Data Processing Auditor Name Role Phone Elsewhere, Pcp Primary Care Provider Unavailabl e Reason for Referral * Outpatient (Routine) - Closed Specialty Diagnoses / Procedures Referred By Radha t Referred To Contact Diagnoses Stroke (HCC) Procedures Echo Transthoracic (TTE) Rey Holly D.O. [address] [place] [address] [facility] Referral ID Status Reason Start Date Expiration Date Visits Re quested Visits Authorized [id number] Closed 04/22/2023 04/21/2024 1 1 Reason for Visit * Outpatient (Routine) - Closed Specialty Diagnoses / Procedures Referred By Radha ge Referred To Contact Diagnoses Stroke (HCC) Procedures Echo Transthoracic (TTE) Rey Holly D.O. [address] [place] [address] [facility] Referral ID Status Reason Start Date Expiration Date Visits Re quested Visits Authorized [id number] Closed 04/22/2023 04/21/2024 1 1 Encounter Details Date Type Department Care Team (Latest Contact Info) Description 05/06/2023 11:45 AM CDT - 05/06/2023 11:59 PM CDT Hospital Encounter Department of Cardiovascular Diseases in [place], [place] [address] [place] [address] Rey Holly D.O. [address] [place] [address] Stroke (HCC) Discharge Disposition: Home or Self Care [...] How often do you attend chur or pentecostal services? More than 4 times per year 10/12/2022 Do you belong to any clubs o r organizations such as religion groups, unions, fraternal [...] and heating? Not hard at all 10/12/2022 [facility] - Occupational Stress [...] or slept in a fpc (including now)? No 10/12/2022 Nutrition Answer Date [...] Sig Dispensed Refills Start Date End Date aspirin [address] tablet Take 1 tablet (81 mg total) by mouth daily. 31 tablet 0 04/22/2023 atorvastatin (LIPITOR) 40 mg tablet Take 1 tablet (40 mg total) by mouth daily. 30 tablet 0 04/22/2023 CALCIUM ORAL Take 1 capsule by mouth daily. MICROCRYSTALLINE HYDROXYAPATITE Calcium supplement 0 12/07/2016 cholecalciferol (VITAMIN D3) 125 mcg (5,000 Unit) tablet Take 1 tablet by mouth daily. 0 07/12/2013 magnesium oxide (MAG-OX) 400 mg (241.3 mg magnesium) tablet daily. 0 omega-3 fatty acids/fish oil (OMEGA 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) Take 2 capsules by mouth daily. Omega[employer]ics by [employer] 0 12/07/2016 TURMERIC ROOT EXTRACT ORAL Take 1 tablet by mouth as needed. 0 04/26/2017 vit A and D3 in cod liver oiL 1,250-135 unit capsule daily. 0 documented as of this encounter Plan of Treatment Upcoming Encounters Date Type Department Care Team (Late st Contact Info) Description 10/18/2023 2:00 PM SENIOR LABEL SPECIALIST Telemedicine Division of Hematology in [place], [place] [address] [place] [address] Arturo Aleman M.D. [address] [place] [address] documented as of this encounter Procedures Procedure Name Priority Date/Time Associated Diagnosis Comments (TTE) 2D ECHO DOPPLER COLOR Routine 05/06/2023 1:35 PM CDT Stroke (HCC) documented in this encounter Results * (TTE) 2D ECHO DOPPLER COLOR (05/06/2023 1:35 PM CDT) Ejection Fraction 63 MC CV EIMS Sinus of Valsalva 32 MC CV EIMS Proximal Ascending Aorta 37 MC CV EIMS Mid-Ascending Aorta 37 MC CV EIMS LV Mass Index 87 MC CV EIMS LV End-Diastolic Diameter 49 MC CV EIMS LV End-Systolic Diameter 32 MC CV EIMS LV End-Diastolic Volume 87 MC CV EIMS LV End-Systolic Volume 32 MC CV EIMS MV E Velocity 0.3 MC CV EIMS MV A Velocity 0.4 MC CV EIMS MV E/A 0.75 MC CV EIMS MV e' Velocity Medial 0.05 MC CV EIMS MV e' Velocity Lateral 0.08 MC CV EIMS MV E/e' Medial 6 MC CV EIMS MV E/e' Lateral 3.8 MC CV EIMS Left ventricular stroke volume index 40 MC CV EIMS Cardiac Output 4.55 MC CV EIMS Cardiac Index 2.6 MC CV EIMS LV Interventricular Septal Wall Thickness 9 MC CV EIMS LV Posterior Wall Thickness 9 MC CV EIMS LV Relative Wall Thickness 37 MC CV EIMS RV 4-Chamber Basal Diameter 35 MC CV EIMS RV 4-Chamber Mid Diameter 28 MC CV EIMS RV 4-Chamber Length 69 MC CV EIMS Tricuspid Annular S? 0.11 MC CV EIMS TR Vmax 2.36 MC CV EIMS RA Pressure 5 MC CV EIMS RV Systolic Pressure 27 MC CV EIMS Estimated diastolic pulmonary artery pressure 8 MC CV EIMS IVC Diameter 14 MC CV EIMS AV mean gradient 3 MC CV EIMS Aortic valve area 2.84 MC CV EIMS Aortic Valve Dimensionless Index 0.82 MC CV EIMS LA Volume Index 26 MC CV EIMS Aortic Valve Systolic Peak Velocity 1.2 MC CV EIMS Anatomical Region Laterality Modality Echocardiography 05/06/2023 12:2 5 PM CDT Impressions 05/06/2023 1:59 PM CDT Last full echocardiogram performed 11/17/2015. Hx of stroke JUN-2022. Hx of chemotherapy, last known FEB-2017. LEFT VENTRICLE:Normal left ventricular chamber size. Normal left ventricular wall thickness. Calculated 2-D biplane volumetric left ventricular ejection fraction of 63%. No regional wall motion abnormalities. Strain rate imaging performed. RIGHT VENTRICLE:Normal right ventricular chamber size. Normal right ventricular function. Estimated right ventricular systolic pressure 27 mmHg (systolic blood pressure 146 mmHg). ATRIA:Normal left atrial size. Left atrial volume index 26 ml/m2. Borderline enlarged right atrial size. CARDIAC VALVES:Thickened aortic valve. Trileaflet aortic valve. No aortic valve regurgitation. Normal mitral valve. Trivial mitral valve regurgitation. Normal pulmonary valve. Normal pulmonary valve systolic velocities. Trivial pulmonary valve regurgitation. Normal tricuspid valve. Mild tricuspid valve regurgitation. OTHER ECHO FINDINGS:Normal inferior vena cava size with normal inspiratory collapse (>50%). Normal ascending aorta diameter. Abdominal aorta incompletely visualized. Normal abdominal aorta Doppler flow pattern. No intracardiac mass or thrombus, but the left atrial appendage cannot be visualized adequately with transthoracic echo to exclude thrombus in this location. No atrial level shunt by color flow imaging and agitated saline contrast injection. Agitated saline contrast administered to rule out shunt. No ??pericardial effusion. For the complete report, see the Order-Level Documents. Narrative 05/06/2023 1:59 PM CDT For the complete report, see the Order-Level Documents. Hemodynamics Heart Rate: 63 BPM Blood Pressure: 146 / 83 mmHg ECG: Sinus rhythm with ectopics Final Impressions 1. Normal left ventricular chamber size, no regional wall motion abnormalities, calculated 2-D biplane volumetric ejection fraction of 63%. 2. Normal right ventricular chamber size, estimated right ventricular systolic pressure 27 mmHg (systolic blood pressure 146 mmHg). 3. No ??significant valvular heart disease. 4. No atrial level shunt by color flow imaging and agitated saline contrast injection. 5. No ??pericardial effusion. Procedure Note Lita Johnson M.D., Ph.D. - 05/06/2023 For the complete report, see the Order-Level Documents. Hemodynamics Heart Rate: 63 BPM Blood Pressure: 146 / 83 mmHg ECG: Sinus rhythm with ectopics Final Impressions 1. Normal left ventricular chamber size, no regional wall motionabnormalities, calculated 2-D biplane volumetric ejection fraction of63%. 2. Normal right ventricular chamber size, estimated right ventricularsystolic pressure 27 mmHg (systolic blood pressure 146 mmHg). 3. No significant valvular heart disease. 4. No atrial level shunt by color flow imaging and agitated salinecontrast injection. 5. No pericardial effusion. Findings Last full echocardiogram performed 11/17/2015. Hx of stroke JUN-2022. Hxof chemotherapy, last known FEB-2017. LEFT VENTRICLE:Normal left ventricular chamber size. Normal leftventricular wall thickness. Calculated 2-D biplane volumetric leftventricular ejection fraction of 63%. No regional wall motionabnormalities. Strain rate imaging performed. RIGHT VENTRICLE:Normal right ventricular chamber size. Normal rightventricular function. Estimated right ventricular systolic pressure 27mmHg (systolic blood pressure 146 mmHg). ATRIA:Normal left atrial size. Left atrial volume index 26 ml/m2.Borderline enlarged right atrial size. CARDIAC VALVES:Thickened aortic valve. Trileaflet aortic valve. No aorticvalve regurgitation. Normal mitral valve. Trivial mitral valveregurgitation. Normal pulmonary valve. Normal pulmonary valve systolicvelocities. Trivial pulmonary valve regurgitation. Normal tricuspid valve.Mild tricuspid valve regurgitation. OTHER ECHO FINDINGS:Normal inferior vena cava size with normal inspiratorycollapse (>50%). Normal ascending aorta diameter. Abdominal aortaincompletely visualized. Normal abdominal aorta Doppler flow pattern. Nointracardiac mass or thrombus, but the left atrial appendage cannot bevisualized adequately with transthoracic echo to exclude thrombus in thislocation. No atrial level shunt by color flow imaging and agitated salinecontrast injection. Agitated saline contrast administered to rule outshunt. No pericardial effusion. For the complete report, see the Order-Level Documents. Rey Holly D.O. CV ECHO PROCEDURES documented in this encounter Visit Diagnoses Diagnosis Stroke (HCC) documented in this encounter Administered Medications Inactive Administered Medications - up to 3 most recent administrations Medication Order MAR Action Action Date Dose Rate Site NaCl 0.9% bacteriostatic 0.9 % injection 15 mL 15 mL, intravenous, As needed, for agitated saline (bubble) studies, Starting on Tue05/06/23 at 1354, Intraprocedure - Diagnostic, See Zoie. Given 05/06/2023 1:54 PM CDT 15 mL documented in this encounter Care Teams Electronic Data Processing Auditor Relationship Specialty Start Date End Date Elsewhere, Pcp PCP - General Internal Medicine 08/09/22 documented as of this encounter
--- OUTSIDE RECORDS SUMMARY | 2023-10-12 06:32 | XMS_ITS | Encounter Summary ---
Author Name Unknown Organization [facility] Address [address] [place] [address] Care Team Providers Care Rear Load Truck Driver Name Role Phone Elsewhere, Pcp Primary Care Provider Unavailabl e Reason for Visit * Outpatient (Routine) - Closed Specialty Diagnoses / Procedures Referred By Radha ge Referred To Contact Neurology Diagnoses Stroke (HCC) Elana Fitch M.D. [address] [place] [address] [facility] Referral ID Status Reason Start Date Expiration Date Visits Re quested Visits Authorized [id number] Closed 04/11/2023 04/10/2024 1 1 Encounter Details Date Type Department Care Team (Latest Contact Info) Description 06/15/2023 11:00 AM CDT Comprehensive Visit Department of Neurology in [place], [place] [address] [place] [phone] Alberto Wren M.D. [address] [place] [phone] Stroke Cerebrovascular Accident Personal History Social History Tobacco Use Types Packs/Day Years [...] often do you attend chur ch or yazdanism services? More than 4 times per year 10/12/2022 Do you belong to any clubs o r organizations such as protestant groups, unions, fraternal [...] heating? Not hard at all 10/12/2022 [facility] [place] of Occupat ional Health - Occupational Stress [...] slept in a nursing home (including now)? No 10/12/2022 Nutrition Answer Date [...] Pulse 75 06/15/2023 10:53 AM CDT Temperature - - Respiratory Rate - - Oxygen Saturation - - Inhaled Oxygen Concentration - - Weight 65 kg (143 lb 4.8 oz) 06/15/2023 10:53 AM CDT Height 162.2 cm (5' 3.86) 06/15/2023 10:53 AM C DT Body Mass Index 24.71 06/15/2023 10:53 AM CDT documented in this encounter Consult Notes * Alberto Wren M.D. - 06/15/2023 11:00 AM CDT Images from the original note were not included. REF: Elana Fitch M.D. CC: Asymptomatic small-vessel infarct HPI: Ms. Meyer presents to clinic today in follow-up for her recent emergency department visit for thediscovery of a likely silent small-vessel ischemic infarct. She is a very pleasant 77-year-old withconventional vascular risk factors of hypertension hyperlipidemia and prior stroke on no anti thrombotic and no antihypertensive and no statin therapy. She has a background of Waldenstrom's macroglobulinemia now presently an observation. She was seen by Dr. Sol in August of 2022 after developing right-sided paresthesias involving the face arm and leg beginning in June of 2022. The interval history included serial brain MRIs that have revealed a likely focus of chronic infarct involving the left thalamus demonstrated below: 20 April 2023 FLAIR compare to a 11 July 2022 FLAIR demonstrates the interval development of a likely left thalamic small-vessel appearing chronic infarct The patient did not commence aspirin or statin subsequent to this consultation of August 2022. The interval history to the current presentation is unremarkable until follow-up brain MRI suggested the presence of a subacute right basal ganglionic infarct involving the head of the caudate. Therefore she was referred to the emergency department, her CT angiogram of the head and neck demonstrated no evidence of flow-limiting stenosis or proximal carotid occlusive disease dissection or other arteriopathy. It was recommended that she begin aspirin and high-intensity statin to drive and LDL of less than 70 mg/dL. Her LDL was found to be 168 mg/dL. She has started the aspirin but has not started the Lipitor citing symptoms of ???irritation?? when commencing this medicine. She is not taking any antihypertensive medicine. She denies any giant cell arteritis type symptomatology easy bleeding bruising unintentional weightloss or other red flag features concerning for malignancy or other chronic stigmata of systemic disease. Past medical history medications family history social history reviewed per the medical record highfunctioning independent lifelong nonsmoker no significant alcohol. Lives at home with . EXAMINATION BP (!) 172/92 (BP Location: Left arm, Patient Position: Sitting, Cuff Size: Regular) Pulse 75 Ht 162.2 cm Wt 65 kg BMI 24.71 kg/m?? Mental status is normal language examination is normal there is no parkinsonism tremor myoclonus orother adventitial movement. Visual cobb are full to confrontation extraocular motions are smooth in full range and there is no spatial neglect no gaze deviation tongue uvula palate are midline facial retraction is symmetric limbs are antigravity there is no pronator drift no satellite eating and no focal motor deficits. Tandem gait is slightly impaired otherwise gait on straight away completelynormal Romberg sign negative DATA Together in clinic today we reviewed her serial brain MRIs taking notice of the microhemorrhages small-vessel ischemic disease subacute infarctions CT angiogram of the head and neck and blood work including lipid panel over the course of the last eight years. IMPRESSION #1 Likely progressive silent small-vessel ischemic disease with prior June 2020 presumed small-vessel thalamic lacunar #2 Hypertension #3 Hyperlipidemia The overall clinical context including the age progressive white matter hyperintensity longstandinguntreated hypertension subcortical/deep nuclei microhemorrhages and likely developing severe hyperlipidemia suggest that Ms. Meyer is suffering from presumed advanced small-vessel ischemic disease. At the present time given that there are multiple vascular risk factors that may be optimized I echo Dr. Sol's prior recommendations and I have enumerated them here for the ease of the reader: Aspirin 81 mg daily by mouth Goal LDL less than 70 mg/dL, we did discuss the effective use of intermittent or low-dose statins, she will think it over and consider resuming her statin at half dose or 3 times weekly. Blood pressure goal less than 130/80 mm Hg. I acknowledge her desire to treat this with diet and exercise although for the time being I think she may benefit from an antihypertensive. She will followup with the primary care provider after taking home blood pressures. She is a nonsmoker there was no diabetes Moderate physical activity 150 minutes weekly (30 minutes per day of walking) Tuesday through Tuesday. For progressive small-vessel ischemic disease there has been some phase two data assessing isosorbide mononitrate and cilostazol. I will defer this for the present time given that there other vascular risk factors that need to be optimized. Subsequent events that occurred despite optimize vascular risk factors might suggest the addition of cilostazol or Imdur at that time however at the present time she is attempting to address most of the vascular risk factors as ???natural?? as possible and so I think step one would be antihypertensive and statin. She is willing to be adherent to aspirin. We discussed signs and symptoms concerning for additional stroke in the importance of early activation of the emergency medical system for optimal stroke outcomes, she is aware to dial 911 if she were to develop any additional stroke-like symptoms. Thank you for an excellent consult, no additional recommendations at this time follow up as necessary at this time I have completed my evaluation and made my recommendations. The patient will follow up with their primary provider. 60 minutes Electronically signed by: Alberto Wren M.D. 06/15/23 12:20 PM CDT Diagnosis Plan 1. Stroke (HCC) Neurology - Cerebrovascular consult (clinic) documented in this encounter Plan of Treatment Upcoming Encounters Date Type Department Care Team (Late st Contact Info) Description 10/18/2023 2:00 PM ELECTRICAL RESEARCH ENGINEER Telemedicine Division of Hematology in [place], [place] [address] [place] [address] Arturo Aleman M.D. [address] [place] [address] documented as of this encounter Visit Diagnoses Diagnosis Stroke Cerebrovascular Accident Personal History documented in this encounter Care Teams Rear Load Truck Driver Relationship Specialty Start Date End Date Elsewhere, Pcp PCP - General Internal Medicine 08/09/22 documented as of this encounter
--- OUTSIDE RECORDS SUMMARY | 2023-10-12 06:33 | XMS_ITS | Encounter Summary ---
Author Name Unknown Organization [facility] Address [address] [place] [address] Care Team Providers Care Control Clerk Repairs Name Role Phone Elsewhere, Pcp Primary Care Provider Unavailabl e Reason for Referral * Outpatient (Routine) - Authorized Specialty Diagnoses / Procedures Referred By Radha ge Referred To Contact Hematology Oncology Arturo Aleman M.D. [address] [place] [address] [facility] Referral ID Status Reason Start Date Expiration Date V isits Requested Visits Authorized [id number] Authorized 04/15/2023 04/14/2026 1 1 Reason for Visit * Outpatient (Routine) - Closed Specialty Diagnoses / Procedures Referred By Radha ge Referred To Contact Hematology Oncology Arturo Aleman M.D. [address] [place] [address] [facility] Referral ID Status Reason Start Date Expiration Date Visits Re quested Visits Authorized [id number] Closed 10/19/2022 10/18/2025 1 1 Encounter Details Date Type Department Care Team (Latest Contact Info) Description 04/15/2023 11:30 AM CDT Office Visit Division of Hematology in [place], [place] [address] [place] [phone] [place] [address] Waldenstrom's Macroglobulinemia (HCC) (Primary Dx) Social History Tobacco Use [...] week 10/12/2022 How often do you attend [facility] or jehovah's witness services? More than 4 times per year 10/12/2022 Do you belong to any clubs o r organizations such as quaker groups, unions, fraternal [...] and heating? Not hard at all 10/12/2022 [facility] [place] of Occupat ional Health - Occupational Stress [...] slept in a senior care (including now)? No 10/12/2022 Nutrition Answer Date [...] Reading Time Taken Comments Blood Pressure 158/79 04/15/2023 11:30 AM CDT Pulse 66 04/15/2023 11:30 AM CDT Temperature 36 ??C (96.8 ??F) 04/15/2023 11:30 AM CDT Respiratory Rate - - Oxygen Saturation - - Inhaled Oxygen Concentration - - Weight 68 kg (149 lb 14.6 oz) 04/15/2023 11:30 A M CDT Height 166 cm (5' 5.35) 04/15/2023 11:30 AM CDT Body Mass Index 24.68 04/15/2023 11:30 AM CDT documented in this encounter Progress Notes * Arturo Aleman M.D. - 04/15/2023 11:30 AM CDT SUBJECTIVE REASON FOR VISIT Waldentrom's macroglobulinemia HISTORY OF PRESENT ILLNESS Patient is a 77 y.o. woman with Waldentrom's macroglobulinemia whose hematological history may be summarized as follows: 1. 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 [id number]: Treated with rituximab, intermittently, totaling 10 different series. 3. November 14 to March 07, 2012: Treated with dexamethasone plus rituximab plus cyclophosphamide for 6cycles. 4. November 08 to January 25, 2017: Treated with rituximab plus bendamustine for 3 cycles. 5. January 2017 to present: Observed without treatment, maintaining partial response. INTERVAL HISTORY Returns to clinic for scheduled follow-up. Last encounter was a video visit on October 19, 2022. Around November 2022 she had an episode of acute lost in visual field. She has since in evaluating ophthalmology and seems to have regained her peripheral vision. On my interview today she reports to be feeling well and denies constitutional symptoms such as fevers, chills, drenching night sweats, unintentional weight loss. REVIEW OF SYSTEMS All systems reviewed and negative except for HPI. OBJECTIVE Vitals: 04/15/23 1130 BP: 158/79 Patient Position: Sitting Pulse: 66 Temp: 36 ??C Height: 166 cm Weight: 68 kg TempSrc: Tympanic Body surface area is 1.77 meters squared. PHYSICAL EXAM General: Accompanied by . No acute distress. ECOG performance status is 0. Eyes: Examined and normal. ENT: [...] clubbing, cyanosis, or edema. Neuro: Grossly nonfocal. Skin: No rash on limited examination. DIAGNOSTICS Reviewed laboratory test results from blood samples obtained on April 11, 2023. Normal CBC with differential. Normal CMP. Marginally elevated LDH of 224. Normal blood viscosity at 1.1. Stable IgM [id number]. Stable M spike at 0.8. ASSESSMENT / PLAN #1 Waldentrom's macroglobulinemia She continues to do well with no hematological manifestations of her disease. Special protein studies are stable. At this time she is maintaining a good response from her previous therapy and there is no indication for treatment at this time. Will continue to monitor with the next touch point in 6 months, [id number]. For the next follow-up visit she wishes to do labs locally and review them with me on a video visitjoint #2 Cerebrovascular disease She had an episode of stroke in June 2022 and was seen by Neurology. She was recommended to initiate low-dose aspirin but has failed to do so. I asked her to follow this recommendation with the goal of decreasing the chance of recurrent strokes. Follow-up: Return visit via video in 6 months Education We discussed the diagnosis and treatment plan in detail. The patient expressed understanding of thecontent. No apparent learning barriers were identified; learning preferences include listening. Signed by: Soraya Ricks M.D. 04/15/2023 documented in this encounter Plan of Treatment Upcoming Encounters Date Type Department Care Team (Late st Contact Info) Description 10/18/2023 2:00 PM SENIOR LINUX ADMINISTRATOR Telemedicine Division of Hematology in [place], [place] [address] [place] [address] Arturo Aleman M.D. [address] [place] [address] Scheduled Referrals Name Type Priority Associated Diagnoses Order Schedule Hematology office visit (clinic) [place]; Lymphoma; General Outpatient Referral Routine Expected: 10/16/2023 (Approximate), Expires: 07/16/2024 documented as of this encounter Visit Diagnoses Diagnosis Waldenstrom's Macroglobulinemia (HCC)- Primary documented in this encounter Care Teams Control Clerk Repairs Relationship Specialty Start Date End Date Elsewhere, Pcp PCP - General Internal Medicine 08/09/22 documented as of this encounter
--- OUTSIDE RECORDS SUMMARY | 2023-10-12 06:33 | XMS_ITS | Encounter Summary ---
Author Name Unknown Organization [facility] Address [address] [place] [address] Care Team Providers Care Shake Out Worker Name Role Phone Elsewhere, Pcp Primary Care Provider Unavailabl e Reason for Referral * MRI/CAT/PET Scan (Routine) - Closed Specialty Diagnoses / Procedures Referred By Radha ge Referred To Contact Radiology Diagnoses Hemianopsia Homonymous Left Procedures MR Brain without and with IV Contrast Elana Fitch M.D. [address] [place] [address] [facility] Referral ID Status Reason Start Date Expiration Date Visits Re quested Visits Authorized [id number] Closed 02/15/2023 02/15/2024 1 1 Reason for Visit * MRI/CAT/PET Scan (Routine) - Closed Specialty Diagnoses / Procedures Referred By Radha ge Referred To Contact Radiology Diagnoses Hemianopsia Homonymous Left Procedures MR Brain without and with IV Contrast Elana Fitch M.D. [address] [place] [address] [facility] Referral ID Status Reason Start Date Expiration Date Visits Re quested Visits Authorized [id number] Closed 02/15/2023 02/15/2024 1 1 Encounter Details Date Type Department Care Team (Latest Contact Info) Description 04/20/2023 2:14 PM CDT - 04/20/2023 11:59 PM CDT Hospital Encounter Department of Radiology, [facility] in [place], [place] [address] [place] [address] Elana Fitch M.D. [address] [place] [address] Hemianopsia Homonymous Left Discharge Disposition: Home or Self Care Social [...] often do you attend chur ch or judaism services? More than 4 times per year 10/12/2022 Do you belong to any clubs o r organizations such as zoroastrianism groups, unions, fraternal [...] and heating? Not hard at all 10/12/2022 [facility] of Occupat ional Health - [...] 2 capsules by mouth daily. [employer] 0 12/07/2016 TURMERIC ROOT EXTRACT ORAL Take 1 tablet by mouth as needed. 0 04/26/2017 vit A and D3 in cod liver oiL 1,250-135 unit capsule daily. 0 documented as of this encounter Plan of Treatment Upcoming Encounters Date Type Department Care Team (Late st Contact Info) Description 10/18/2023 2:00 PM ENGRAVER STEEL PLATE Telemedicine Division of Hematology in [place], [place] [address] [place] [address] Arturo Aleman M.D. [address] [place] [address] documented as of this encounter Procedures Procedure Name Priority Date/Time Associated Diagnosis Comments MR BRAIN WITHOUT AND WITH IV CONTRAST RAD - Routine (most inpatients and all outpatients) 04/20/2023 3:09 PM CDT Hemianopsia Homonymous Left documented in this encounter Results * MR Brain without and with IV Contrast (04/20/2023 3:09 PM CDT) Anatomical Region Laterality Modality Head, Brain, Neuroradiology RST LOS, Neuroradiology ARZ LOS, Neuroradiology FLA LOS N/A Magnetic Resonance 04/21/2023 7:41 AM CDT Impressions 04/21/2023 8:07 AM CDT 1. New small punctate acute/subacute infarct involving the right caudate head. Mild temporal evolution of the chronic infarct in the right occipital lobe, with encephalomalacia. Remainder of the intracranial contents are stable. 2. No evidence of intracranial or orbital lymphoma. Narrative 04/21/2023 8:07 AM CDT EXAM: MR BRAIN WITHOUT AND WITH IV CONTRAST COMPARISON: MRI head 01/10/2023 FINDINGS: Small punctate focus of mild diffusion restriction in the right caudate head is new, consistent with acute/subacute infarct. Temporal evolution of the chronic right occipital lobe infarct with encephalomalacia and mild gliosis. Remainder unchanged. Chronic infarcts in the bilateral basal ganglia, thalami, caudate nuclei, left vogt radiata and left parietal white matter. Punctate and confluent foci of increased T2 signal in the subcortical and deep white matter of both cerebral hemispheres and renetta is similar, consistent with moderate- advanced chronic small vessel ischemia. No abnormal intracranial contrast enhancement; specifically no evidence of intracranial or orbital lymphoma. Susceptibility weighted imaging demonstrates multiple punctate foci of susceptibility, greatest in the deep buitrago nuclei bilaterally, also in the cerebellum, brainstem and a few scattered foci in both cerebral hemispheres; nonspecific, distribution often associated with hypertension. Mild scattered paranasal sinus mucosal thickening. Procedure Note Rama Fuentes M.D. - 04/21/2023 EXAM: MR BRAIN WITHOUT AND WITH IV CONTRAST COMPARISON: MRI head 01/10/2023 FINDINGS: Small punctate focus of mild diffusion restriction in the rightcaudate head is new, consistent with acute/subacute infarct. Temporal evolution of the chronicright occipital lobe infarct with encephalomalacia and mild gliosis. Remainder unchanged.Chronic infarcts in the bilateral basal ganglia, thalami, caudate nuclei, left vogt radiata andleft parietal white matter. Punctate and confluent foci of increased T2 signal in thesubcortical and deep white matter of both cerebral hemispheres and renetta is similar, consistent withmoderate- advanced chronic small vessel ischemia. No abnormal intracranial contrast enhancement; specifically no evidence ofintracranial or orbital lymphoma. Susceptibility weighted imaging demonstrates multiple punctatefoci of susceptibility, greatest in the deep buitrago nuclei bilaterally, also in the cerebellum,brainstem and a few scattered foci in both cerebral hemispheres; nonspecific, distribution oftenassociated with hypertension. Mild scattered paranasal sinus mucosal thickening. IMPRESSION: 1. New small punctate acute/subacute infarct involving the right caudatehead. Mild temporal evolution of the chronic infarct in the right occipital lobe, withencephalomalacia. Remainder of the intracranial contents are stable. 2. No evidence of intracranial or orbital lymphoma. Elana Fitch M.D. IMJohn MRI PROCEDURE S documented in this encounter Visit Diagnoses Diagnosis Hemianopsia Homonymous Left documented in this encounter Administered Medications Inactive Administered Medications - up to 3 most recent administrations Medication Order MAR Action Action Date Dose Rate Site gadobutrol injection 0.01-30 mL (GADAVIST) 0.01-30 mL, intravenous, Once in imaging, contrast, Starting on Tue04/20/23 at 1420, For 1 dose, Imaging Protocol Orders, Dose per Radiant Medication Guidelines Intrathecal doses greater than 0.25 mL not recommended. Given 04/20/2023 2:58 PM CDT 7 mL documented in this encounter Care Teams Shake Out Worker Relationship Specialty Start Date End Date Elsewhere, Pcp PCP - General Internal Medicine 08/09/22 documented as of this encounter
--- OUTSIDE RECORDS SUMMARY | 2023-10-12 06:33 | XMS_ITS | Encounter Summary ---
Author Name Unknown Organization [facility] Address [address] [place] [address] Care Team Providers Care Bottom Wheeler Name Role Phone Elsewhere, Pcp Primary Care Provider Unavailabl e Encounter Details Date Type Department Care Team (Late st Contact Info) Description 05/03/2023 Clinical Communication Division of Hematology in [place], [place] [address] [place] [address] Arturo Aleman M.D. [address] [place] [address] Social History Tobacco Use Types Packs/Day Years [...] any clubs o r organizations such as presybeterian groups, unions, fraternal [...] and heating? Not hard at all 10/12/2022 [facility] of Occupat ional Health - [...] documented as of this encounter Miscellaneous Notes * Telephone Encounter - Daisy López RMarcelloN. - 05/03/2023 11:[address] Brown, Mail order labs ordered for 10/10/2023. ----- Message from Arturo Ricks M.D. sent at 04/15/2023 4:25 PM CDT ----- Regarding: Labs at home in 6 months from now (mail in) Our next follow-up will be in 6 months and because of the winter she wishes to do this via video. Can you set her up to have labs drawn locally and mailed into us about 1 week in advance to the visit? She will need the [facility] return visit smartset + retic count + monoclonal protein diagnosis (blood) +immunoglobulins (Iga, IgM, IgG), blood viscosity. Thanks documented in this encounter Plan of Treatment Upcoming Encounters Date Type Department Care Team (Late st Contact Info) Description 10/18/2023 2:00 PM ELECTRICAL ACCESSORIES II ASSEMBLER Telemedicine Division of Hematology in [place], [place] [address] [place] [address] Arturo Aleman M.D. [address] [place] [address] documented as of this encounter Visit Diagnoses Not on filedocumented in this encounter Care Teams Bottom Wheeler Relationship Specialty Start Date End Date Elsewhere, Pcp PCP - General Internal Medicine 08/09/22 documented as of this encounter
--- OUTSIDE RECORDS SUMMARY | 2023-10-12 06:33 | XMS_ITS | Encounter Summary ---
Author Name Unknown Organization [facility] Address [address] [place] [address] Care Team Providers Care It Portfolio Manager Name Role Phone Elsewhere, Pcp Primary Care Provider Unavailabl e Reason for Referral * Outpatient (Routine) - Closed Specialty Diagnoses / Procedures Referred By Radha ge Referred To Contact Ophthalmology Elana Fitch M.D. [address] [place] [address] [facility] Referral ID Status Reason Start Date Expiration Date Visits Re quested Visits Authorized [id number] Closed 04/11/2023 04/10/2026 1 1 Scheduling Instructions Phone f/u after MRI and JERARDO 30-2 to review results with patient. Encounter Details Date Type Department Care Team (Late st Contact Info) Description 04/11/2023 Orders Only Department of Ophthalmology in [place], [place] [address] [place] [phone] Deidra Coffey C.O.A. [address] [place] [phone] Hemianopsia Homonymous Left (Primary Dx) Social History Tobacco Use Types [...] week 10/12/2022 How often do you attend [facility] or sikhism services? More than 4 times per year 10/12/2022 Do you belong to any clubs o r organizations such as jehovah's witness groups, unions, [...] and heating? Not hard at all 10/12/2022 [facility] [place] [facility] - Occupational Stress [...] or slept in a [facility] (including now)? No 10/12/2022 Nutrition Answer Date [...] st Contact Info) Description 10/18/2023 2:00 PM FL[employer]ER Telemedicine Division of Hematology in [place], [place] [address] [place] [address] Arturo Aleman M.D. [address] [place] [phone] Scheduled Referrals Name Type Priority Associated Diagnoses Order Schedule Ophthalmology office visit (clinic) Outpatient Referral Routine Expected: 04/11/2023 (Approximate), Expires: 07/12/2024 documented as of this encounter Results * Automated VF - Extended - OU - Both Eyes (04/15/2023 8:47 AM CDT) Narrative OPHTHALMOLOGY IMAGING EXAM - 04/15/2023 10:10 AM CDT Right Eye Automated visual field device used was [employer]. Strategy was JERARDO. Threshold was 30-2. Eyelid was untaped. Mean deviation was -1.36 decibels. Pattern standard deviation (PSD) was 1.63 decibels. Left Eye Automated visual field device used was [employer]. Strategy was JERARDO. Threshold was 30-2. Eyelid was untaped. Mean deviation was 2.28 decibels. Pattern standard deviation (PSD) was -3.41 decibels. Notes See notes. Elana Fitch M.D. OPHTH VISUAL FIEL D OPHTHALMOLOGY IMAGING EXAM documented in this encounter Visit Diagnoses Diagnosis Hemianopsia Homonymous Left- Primary Hemianopsia Homonymous Left documented in this encounter Care Teams It Portfolio Manager Relationship Specialty Start Date End Date Elsewhere, Pcp PCP - General Internal Medicine 08/09/22 documented as of this encounter
--- OUTSIDE RECORDS SUMMARY | 2023-10-12 06:33 | XMS_ITS | Encounter Summary ---
Author Name Unknown Organization [facility] Address [address] [place] [address] Care Team Providers Care Conventions Reservationist Name Role Phone Elsewhere, Pcp Primary Care Provider Unavailabl e Reason for Visit * Reason Onset Date Comments [id number]/[id number] 04/26/2023 Encounter Details Date Type Department Care Team (Late st Contact Info) Description 04/26/2023 Clinical Communication Department of Neurology in [place], [place] [address] [place] [phone] Rey Holly D.O. [address] [place] [phone] E8A/Avni Social History Tobacco Use Types Packs/Day Years [...] any clubs o r organizations such as sikh groups, unions, fraternal [...] and heating? Not hard at all 10/12/2022 [facility] - [...] st Contact Info) Description 10/18/2023 2:00 PM [employer]IST[employer] Telemedicine Division of Hematology in [place], [place] [address] [place] [address] Arturo Aleman M.D. 200 [place] [address] documented as of this encounter Visit Diagnoses Not on filedocumented in this encounter Care Teams Conventions Reservationist Relationship Specialty Start Date End Date Elsewhere, Pcp PCP - General Internal Medicine 08/09/22 documented as of this encounter
--- OUTSIDE RECORDS SUMMARY | 2023-10-12 06:33 | XMS_ITS | Encounter Summary ---
Author Name Unknown Organization [facility] Address [address] [place] [address] Care Team Providers Care Manager Retention Name Role Phone Elsewhere, Pcp Primary Care Provider Unavailabl e Reason for Referral * Outpatient (Routine) - Closed Specialty Diagnoses / Procedures Referred By Radha ge Referred To Contact Diagnoses Stroke (HCC) Procedures Echo Transthoracic (TTE) Rey Holly D.O. [address] [place] [address] [facility] Referral ID Status Reason Start Date Expiration Date Visits Re quested Visits Authorized [id number] Closed 04/22/2023 04/21/2024 1 1 Reason for Visit * Reason Comments Abnormal Lab Encounter Details Date Type Department Care Team (Late st Contact Info) Description 04/22/2023 11:45 AM CDT - 04/22/2023 3:[address] [facility] Emergency Department [address] [place] [phone] Dianne Borjas M.D. [address] [place] [phone] Stroke (HCC) (Primary Dx) Discharge Disposition: Home or Self Care Social [...] How often do you attend chur or synagogue services? More than 4 times per year 10/12/2022 Do you belong to any clubs o r organizations such as hindu groups, unions, fraternal [...] and heating? Not hard at all 10/12/2022 [facility]at ional [facility] - Occupational Stress [...] or slept in a alf (including now)? No 10/12/2022 Nutrition Answer Date [...] Sign Reading Time Taken Comments Blood Pressure 159/76 04/22/2023 3:30 PM CDT Pulse 69 04/22/2023 3:30 PM CDT Temperature 36.8 ??C (98.2 ??F) 04/22/2023 11:59 AM C DT Respiratory Rate 12 04/22/2023 3:30 PM CDT Oxygen Saturation 94% 04/22/2023 3:30 PM CDT Inhaled Oxygen Concentration - - Weight - - Height - - Body Mass Index - - documented in this encounter Discharge Instructions * Discharge Instructions* Fred Balderas M.D. - 04/22/2023 2:53 PM CDT Please follow-up with order to obtain TTE as requested per neurology. Please take aspirin 81mg and atorvastatin 40mg as advised to help prevent future infarcts. documented in this encounter Medications at Time [...] 2 capsules by mouth daily. [employer] 0 12/07/2016 TURMERIC ROOT EXTRACT ORAL Take 1 tablet by mouth as needed. 0 04/26/2017 vit A and D3 in cod liver oiL 1,250-135 unit capsule daily. 0 documented as of this encounter Consult Notes * Rey Holly D.O. - 04/22/2023 1:37 PM CDTAssociated Order(s): IP CONSULT TO NEUROLOGY SUBJECTIVE REFERRAL RMB C08 Primary ED staff: Dr. Dianne Borjas CHIEF COMPLAINT / REASON FOR VISIT Stroke. HISTORY OF PRESENT ILLNESS Sarah Meyer is a 77 y.o. female with medical comorbidities significant for Waldonstrom's macroglobulinemia (diagnosed 2001, without current hemological manifestations on recent heme visit 09/2022), history of subconjunctival lymphoma (treated with chemotherapy), who presents with an incidentally discovered small stroke. Briefly on her hematologic history, she was diagnosed with Waldenstrom macroglobulinemia in 2001 and was treated with rituximab intermittently from [id number]. In 2011 she was also treated with rituximab plus cyclophosphamide and dexamethasone. In 2016 she was treated with rituximab and bendamustine. In 2016 she was felt to have a good response without hematologic manifestations and has been observed without treatment since. In June of 2022 she developed acute onset numbness and tingling of her right face arm and leg. This was felt to represent stroke in the setting of significant small-vessel disease on an MRI. It was recommended that she start an aspirin 81 mg daily. In December of 2022 she had a left visual field cutlasting about 1 hour that occurred about 4 times. It has not occurred since. She was referred to Neuro-Ophthalmology here and was undergoing evaluation for this. A repeat MRI was recommended to monitor for new changes, given her history. An incidental punctate R caudate head stroke was noted along with again demonstrated diffuse small vessel changes and basalganglia/brainstem/cerebellar predominant microhemorrhages. She was referred to the ED for further evaluation in this setting. She denies any history of memory loss or family history of dementia. She denies any new neurologic symptoms since December 2022. She states she was prescribed aspirin 81mg but never began taking it. She is not currently on a statin. She does not smoke or use alcohol. She does not take blood pressure medications. She has no family history of stroke, that she can recall. She does report some worsening of her RUE tingling/numbness with activities requiring neck flexion/extension (such as gardening). She sees a chiropractor for this, currently. HISTORY AND REVIEW OF SYSTEMS Sarah Meyer's history was reviewed including allergies, current medications, review of systems, family history, medical and surgical history, social history, and problem list. Pertinent information is outlined in the history of present illness. SOCIAL HISTORY - Tobacco use: None - Alcohol use: None - Functional status: Independent ADLs. MEDICATIONS: Current Facility-Administered Medications: sodium chloride 0.9 % injection 10 mL, 10 mL, intravenous, PRN, Tiara Shukla M.D. sodium chloride 0.9 % injection 3 mL, 3 mL, intravenous, PRNVazquez Grace A, M.D. sodium chloride 0.9 % injection 3 mL, 3 mL, intravenous, Q12H KORI, Tiara Shukla M.D. Current Outpatient Medications: CALCIUM ORAL, Take 1 capsule by mouth daily. MICROCRYSTALLINE HYDROXYAPATITE Calcium supplement , Disp: , Rfl: cholecalciferol (VITAMIN D3) 125 mcg (5,000 Unit) tablet, Take 1 tablet by mouth daily., Disp: , Rfl: magnesium oxide (MAG-OX) 400 mg (241.3 mg magnesium) tablet, daily., Disp: , Rfl: omega-3 fatty acids/fish oil (OMEGA 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), Take 2 capsules by mouth daily. [email or web address], Disp: , Rfl: TURMERIC ROOT EXTRACT ORAL, Take 1 tablet by mouth as needed. , Disp: , Rfl: vit A and D3 in cod liver oiL 1,250-135 unit capsule, daily., Disp: , Rfl: OBJECTIVE PHYSICAL EXAM Blood pressure (!) 186/82, pulse 76, temperature 36.8 ??C, temperature source Oral, resp. rate 23, SpO2 92 %. There is no height or weight on file to calculate BMI. General: No acute distress. Breathing comfortably on room air. Neurologic: Alert and oriented. Follows multistep and cross body commands. Answers basic logic questions. No aphasia or dysarthria. Pupils equal. Left ptosis noted that is just above the iris (static). EOM with full ROM. No visual field cut noted, no extinction. Facial sensation normal and symmetric. Facial strength symmetric at rest and with activation. Uvula and soft palate rise and fall symmetrically with phonation. Motor strength symmetric and full, without drift. Sensation mildly reduced in RUE and very mildly reduced in RLE compared to left (to light touch). Reflexes symmetric. Toes flexor-flexor. FNF normal. NIH Stroke Scale 1A. LOC: 0=alert; keenly responsive 1B. Questions: 0=answers both questions correctly 1C. Commands: 0=Performs both tasks correctly 2. Best Gaze: 0=normal 3. Visual: 0=No visual loss 4. Facial Palsy: 0=Normal symmetric movement 5A. Left Arm Motor: 0=No drift, limb holds 90 (or 45) degrees for full 10 seconds 5B. Right Arm Motor: 0=No drift, limb holds 90 (or 45) degrees for full 10 seconds 6A. Left Leg Motor: 0=No drift, leg holds 30 degrees for full 5 seconds 6B. Right Leg Motor: 0=No drift, leg holds 30 degrees for full 5 seconds 7. Limb Ataxia: 0=Absent 8. Sensory: 1=Mild to moderate sensory loss; patient feels pinprick is less sharp or is dull on theaffected side; there is a loss of superficial pain with pinprick but patient is aware She is being touched 9. Best Language:0=No aphasia, normal 10. Dysarthria: 0=Normal 11. Extinction: 0=No abnormality TOTAL SCORE: 1 DATA I have reviewed all relevant diagnostics. Assessment #1 R caudate stroke, incidental #2 History of prior stroke 06/2022 (presumed small vessel) #3 Diffuse small vessel changes on MRI #4 Multiple microhemorrhages on MRI, most consistent with small vessel etiology #5 History of Waldenstrom Macroglobulinemia, reportedly with good hematologic control #6 History of subconjuctival lymphoma, left Sarah Meyer is a 77 y.o. female with medical comorbidities significant for Waldonstrom's macroglobulinemia (diagnosed 2001, without current hemological manifestations on recent heme visit 09/2022), history of subconjunctival lymphoma (treated with chemotherapy), who presents with an incidentally discovered small stroke. Ms. Suarez has a newly discovered incidental small punctate right caudate stroke in the setting of significant small-vessel disease as demonstrated by her most recent MRI (evidence of leukoaraiosisand microhemorrhages in the region of basal ganglia, cerebellum and brainstem most consistent with a small-vessel etiology). She is not currently on any antiplatelet therapy or statin and as such it would be reasonable to initiate this as outlined below. She did have a discrete stroke-like episode in June of 2022 which left her with some residual right upper extremity numbness more so than right lower extremity numbness (also at the time had facial numbness). She notes some transient worsening of this numbness and tingling with neck flexion and extension. As such I would be reasonable to evaluate her the vessel anatomy with a CTA head and neck, as I do not see this was ever performed. Reportedly, her most recent hematologic visit noted thather Waldenstrom's macroglobulinemia is not manifesting hematologically at this time. Her last TTE was in 2016 which showed moderate left atrial enlargement, no atrial level shunt and no intracardiac mass/thrombus. EF was 61%. The most likely etiology of her strokes is small-vessel related given the location and MRI findings(note, LDL is 168 and she has been hypertensive in ED since arrival; 160-180s SBP). As such we should optimize her risk factors by treating any hypertension, hyperlipidemia, diabetes and she should start an aspirin 81 mg and atorvastatin 40 mg daily for secondary stroke prevention. She has not had a TTE since 2016 (which showed some left atrial enlargement) it would be reasonable to update this in the outpatient setting, though my suspicion for a cardioembolic etiology is low. RECOMMENDATIONS CTA head/neck for vessel anatomy No significant stenosis on my review; formal read pending. A1c (5.1%), TSH (1.7), Lipid Panel (LDL 168) Start Aspirin 81mg daily for secondary stroke prevention. Start Atorvastatin 40 mg daily for secondary stroke prevention. Outpatient TTE. Continue to optimize hypertension with primary care provider. Return if new neurologic symptoms (numbness, weakness, nausea/vomiting, vision changes, language difficulties, gait instability, etc.) Call if questions come up. Follow-up already arranged prior to this visit (with stroke neurology 06/15). Thank you for the opportunity to participate in the care of Sarah Meyer. This an Emergency Neurology consultation. Please page [phone] with any additional questions. Rey Holly D.O. PGY-4 Neurology Resident STROKE DOCUMENTATION: Stroke Center Measures: Did this patient have a possible stroke/TIA/hemorrhage?: Yes Type of stroke: Ischemic stroke/Transient ischemic attack Date of NIHSS completed: 04/22/2023 Time of NIHSS completed: 13:25 CDT Admission NIHSS total score: 1 Date last known well: asymptomatic stroke (no last known well) Onset of symptoms - date: No symptoms. Patient received IV thrombolytic?: No Reason not a candidate: Mild/improving symptoms Intra-arterial candidate for intervention?: No Reason not a candidate: Not performed due to stroke topography Patient admitted solely for an elective carotid intervention: No Antithrombotic started on admission: Started on admission Dysphagia screen performed before oral intake or any p.o. medication given: Not performed because no oral/speech symptoms Prestroke modified [place] Score (mRS): 1 - No significant disability. Able to carry out all usual activities, despite some symptoms. Physical Medicine (PMR) consulted: Not consulted because no deficit Speech therapy consulted to evaluate patient: Not consulted because no speech/language deficits Tobacco use: Does not use tobacco Fasting lipids performed: Were performed Patient on lipid-lowering agent prior to arrival?: No Relevant cerebrovascular risk factors: Hyperlipidemia and hypertension documented in this encounter ED Notes * Dianne Borjas M.D. - 04/22/2023 3:47 PM CDT I have personally seen and examined this patient. I have fully participated in the care of this patient. I have reviewed all clinical information including history, physical exam, orders, and plan. Iagree with the note of the resident. I saw the patient with the medical student. I was present for or re-performed the History of Present Illness. I personally performed a Physical Exam and Medical Decision Making. I reviewed medical student documentation and agree or amended. 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 Patient states she is asymptomatic except for her old numbness of the right leg secondary to her prior stroke. Fluent speech Delightful elderly female in no acute distress Symmetric face Full lower extremity strength Midline tongue Full extraocular movements Impression/plan: Concern for acute stroke Neurology was consulted and graciously evaluated the patient. They have recommended CTA and continued outpatient follow-up. They are recommending that she start daily aspirin and atorvastatin. They are arranging follow-up. ED Course as of 04/22/23 1612 TueApr 22, 2023 1241 Temperature: 36.8 ??C 1241 Blood Pressure(!): 182/84 1243 MRI from 04/20 IMPRESSION: 1. New small punctate acute/subacute infarct involving the right caudate head. Mild temporal evolution of the chronic infarct in the right occipital lobe, with encephalomalacia. Remainder of the intracranial contents are stable. 2. No evidence of intracranial or orbital lymphoma. 1401 I-STAT reveals lactate of 0.74, pH 7.41/pCO2 43/bicarb 27, potassium 3.5, hematocrit 41, glucose 90. 1449 Neurology has recommended outpatient TTE which we have asked them to order. They are going to follow-up on the pending lab test. Hemoglobin A1c was normal. 1509 Per Neuro: CTA reassuring. DC on ASA and Atorvastatin Final Diagnoses: as of 04/22/23 1612 Stroke (HCC) Dianne Borjas M.D. 04/22/23 1614 * Brenda Gonzalez - 04/22/2023 1:02 PM CDT SUBJECTIVE CHIEF COMPLAINT/REASON FOR VISIT Referral for abnormal MRI showing multiple right caudate infarcts HISTORY OF PRESENT ILLNESS Mrs. Sarah Meyer is a 77 year old female with a history of Waldenstrom's macroglobulinemia treated with chemotherapy, lymphoma in the left eye, and a prior mild stroke in June 2022. 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 MRI revealed small punctuate infarct in her right caudate; however, she isasymptomatic. She has not noticed any weakness, sensory abnormalities, visual changes, aphasia, or cranial nerve deficits. She reports no history of hypertension or atrial fibrillation. After her previous stroke in 2021, she was advised to take aspirin; however, she has not done adhered to this guidance. REVIEW OF SYSTEMS Constitutional: Negative. HENT: Negative. Eyes: Negative. Respiratory: Negative. Cardiovascular: Negative. Gastrointestinal: Negative. Endocrine: Negative. Genitourinary: Negative. Musculoskeletal: Negative. Skin: Negative. Allergic/Immunologic: Negative. Neurological: Negative. Hematological: Negative. Psychiatric/Behavioral: Negative. OBJECTIVE Initial Vitals Temperature 04/22/23 1159 36.8 ??C Pulse Rate 04/22/23 1159 80 Heart Rate 04/22/23 1200 77 Resp Rate 04/22/23 1159 16 Blood Pressure 04/22/23 1159 (!) 182/84 SpO2 04/22/23 1159 98 % Pain Score 04/22/23 1209 0 - No pain PHYSICAL EXAMINATION Constitutional: Nursing note and vitals reviewed. She is cooperative. HENT: Head: Normocephalic. Mouth/Throat: Mucous membranes are moist. Eyes: Conjunctivae, EOM and lids are normal. Pupils are equal, round, and reactive to light. Periorbital area normal appearing. Cardiovascular: Regular rhythm and normal heart sounds. Pulmonary/Chest: Effort normal. Abdominal: Normal appearance. Musculoskeletal: Cervical back: Normal range of motion. Neurological: Alert and oriented to person, place, and time. She has normal sensation and cranial nerves II through XII intact. Normal speech. Minimal right-sided sensory abnormality in upper and lower extremities due to previous stroke in June 2022 Skin: Skin is warm and dry. Psychiatric: She has a normal mood and affect. Speech pattern is normal. Thought content normal. Cognition and memory are normal. ASSESSMENT/PLAN Assessment and Plan Mrs. Sarah Meyer is a 77 year old female who presented for asymptomatic MRI imaging signs of right punctuate caudate infarcts. On physical exam, she did not have any evident deficits or obvious signs of infarct. Stroke work-up was initiated and neurology was consulted for their evaluation and recommendations. Please see their note for detailed exam findings. They did recommend further evaluation with CTA Head/Neck, as well as an A1C, thyroid and lipid panel. CTA did not reveal any significantabnormalities or evidence of occluded vessels. A1C was within range. Lipid panel showed evidence ofhigh LDL and total cholesterol. Thyroid testing was within range. Med recommendations include aspirin 81mg and atorvastatin 40mg for high LDL and attempt to prevent future infarcts. TTE is recommended per neurology on outpatient follow-up as her last one was several years ago prior to these abnormalities; she has been instructed to follow-up on this. All questions were answered. Patient understood plan. . ED Course as of 04/22/23 1502 Fri Apr 22, 2023 1301 ECG 12 Lead No signs of atrial fibrillation 1301 Neurology consulted for stroke work-up and guidance 1330 Neurology recommended CTA Head/Neck, A1C, thyroid, and lipid panel 1400 Potassium, POCT, B(!): 3.5 Mild hypokalemia 1419 APTT (Activated Partial Thromboplastin Time): Activated Partial Thrombopl Time, P 27 Normal APTT and CBC values 1420 Prothrombin Time (PT): Prothrombin Time, P 11.3 INR 1.0 PT is within normal range 1420 Blood Pressure(!): 186/82 Persistent HTN, patient notes this is abnormal as she usually rests between 130- 150 systolic when at home 1426 Neurology gave med recs for atovastatin and aspirin 1433 TTE recommended per neurology as outpatient follow-up 1442 CT Head Neck Angiogram with IV Contrast 1443 Hemoglobin A1c: Hemoglobin A1c, B 5.1 A1C is within range 1502 Lipid Panel(!): Triglycerides 67 Cholesterol, Total 255(!) Cholesterol, LDL, Calculated 168(!) Cholesterol, HDL 76 Cholesterol, Non-HDL, Calculated 179(!) Fasting (8 HR or more) No High Cholesterol LDL and total -ROSE Shrestha, MS3 Brenda Gonzalez 04/22/23 1522 * Melissa Bradshaw R.N. - 04/22/2023 12:03 PM CDT Patient presents to the ED after receiving results of an MRI Brain on Tuesday and was told there were new concerning results. History of stroke in June 2022 Melissa Bradshaw R.N. 04/22/23 1205 documented in this encounter Plan of Treatment Upcoming Encounters Date Type Department Care Team (Late st Contact Info) Description 10/18/2023 2:00 PM [employer] Telemedicine Division of Hematology in [place], [place] [address] [place] [address] Arturo Aleman M.D. [address] [place] [phone] documented as of this encounter Procedures Procedure Name Priority Date/Time Associated Diagnosis Comments CT HEAD WITHOUT IV CONTRAST RAD - Emergent (Fastest; for the most critically ill patients) 04/22/2023 2:[address] HEAD NECK ANGIOGRAM WITH IV CONTRAST RAD - Semiurgent (Fast; most ED patients; some inpatients) 04/22/2023 2:53 PM CDT VBG & LYTES CG8+, POCT, B STAT 04/22/2023 1:58 PM CDT LACTATE, POCT, B STAT 04/22/2023 1:55 PM CDT LIPID PANEL, S STAT 04/22/2023 1:51 PM CDT THYROID FUNCTION CASCADE, S STAT 04/22/2023 1:51 PM CDT ACTIVATED PARTIAL THROMBOPLASTIN TIME (APTT), P STAT 04/22/2023 1:51 PM CDT PROTHROMBIN TIME (PT), P STAT 04/22/2023 1:51 PM CDT CBC WITHOUT DIFFERENTIAL, B STAT 04/22/2023 1:51 PM CDT HEMOGLOBIN A1C, B STAT 04/22/2023 1:5 1 PM CDT BASIC METABOLIC PANEL, S/P STAT 04/22/2023 1:51 PM CDT ECG STAT 04/22/2023 12:52 PM CDT documented in this encounter Results * (TTE) [...] Documents. Rey Holly D.O. CV ECHO PROCEDURES * CT Head Neck Angiogram with IV Contrast (04/22/2023 2:53 PM CDT) Anatomical Region Laterality Modality Head and Neck, Neuroradiolog y RST LOS, Neuroradiology [facility], Neuroradiology [facility] N/A Computed Tomography, Compute d Tomography 04/22/2023 2:50 PM CDT Impressions 04/22/2023 3:12 PM CDT 1. No acute infarction. 2. Multiple chronic lacunar infarctions, unchanged. 3. No hemodynamically significant stenosis of the major arteries of the head and neck. Narrative 04/22/2023 3:12 PM CDT EXAM: CT HEAD WITHOUT IV CONTRAST, CT HEAD NECK ANGIOGRAM WITH IV CONTRAST Including 3D image post-processing. COMPARISON: MRI head 04/20/2023, outside CT head 05/10/2022 FINDINGS: CT: No significant change since comparisons. No definite new infarction. No intracranial hemorrhage. No tumor. No hydrocephalus. Multiple small chronic lacunar infarctions in the bilateral basal ganglia and left thalamus and deep left frontoparietal white matter, also well-visualized on MRI from 2 days ago. 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 Fluid in the left sphenoid sinus. CTA: Minimal atherosclerotic narrowing of a few intracranial arteries, e.g. the P2 segments of the posterior cerebral arteries, without a hemodynamically significant stenosis. No cervical carotid bifurcation stenosis. No vertebrobasilar artery stenosis. No dissection. Incidental note of retropharyngeal course of the right cervical internal carotid artery. Procedure Note James Ray M.D., M.S. - 04/22/2023 EXAM: CT HEAD WITHOUT IV CONTRAST, CT HEAD NECK ANGIOGRAM WITH IVCONTRAST Including 3D image post-processing. COMPARISON: MRI head 04/20/2023, outside CT head 05/10/2022 FINDINGS: CT: No significant change since comparisons. No definite new infarction.No intracranial hemorrhage. No tumor. No hydrocephalus. Multiple small chronic lacunar infarctions in the bilateral basal gangliaand left thalamus and deep left frontoparietal white matter, also well-visualized on MRI from 2 daysago. 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 Fluid in the left sphenoid sinus. CTA: Minimal atherosclerotic narrowing of a few intracranial arteries,e.g. the P2 segments of the posterior cerebral arteries, without a hemodynamically significantstenosis. No cervical carotid bifurcation stenosis. No vertebrobasilar artery stenosis. No dissection.Incidental note of retropharyngeal course of the right cervical internal carotid artery. IMPRESSION: 1. No acute infarction. 2. Multiple chronic lacunar infarctions, unchanged. 3. No hemodynamically significant stenosis of the major arteries of thehead and neck. Fred GLEASON CT PROCEDURE S * CT Head without IV Contrast (04/22/2023 2:53 PM CDT) Anatomical Region Laterality Modality Head, Neuroradiology RST LOS , Neuroradiology [facility], Neuroradiology [facility] N/A Computed Tomography, Compute d Tomography 04/22/2023 2:35 PM CDT Impressions 04/22/2023 3:12 PM CDT 1. No acute infarction. 2. Multiple chronic lacunar infarctions, unchanged. 3. No hemodynamically significant stenosis of the major arteries of the head and neck. Narrative 04/22/2023 3:12 PM CDT EXAM: CT HEAD WITHOUT IV CONTRAST, CT HEAD NECK ANGIOGRAM WITH IV CONTRAST Including 3D image post-processing. COMPARISON: MRI head 04/20/2023, outside CT head 05/10/2022 FINDINGS: CT: No significant change since comparisons. No definite new infarction. No intracranial hemorrhage. No tumor. No hydrocephalus. Multiple small chronic lacunar infarctions in the bilateral basal ganglia and left thalamus and deep left frontoparietal white matter, also well-visualized on MRI from 2 days ago. 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 Fluid in the left sphenoid sinus. CTA: Minimal atherosclerotic narrowing of a few intracranial arteries, e.g. the P2 segments of the posterior cerebral arteries, without a hemodynamically significant stenosis. No cervical carotid bifurcation stenosis. No vertebrobasilar artery stenosis. No dissection. Incidental note of retropharyngeal course of the right cervical internal carotid artery. Procedure Note James Ray M.D., M.S. - 04/22/2023 EXAM: CT HEAD WITHOUT IV CONTRAST, CT HEAD NECK ANGIOGRAM WITH IVCONTRAST Including 3D image post-processing. COMPARISON: MRI head 04/20/2023, outside CT head 05/10/2022 FINDINGS: CT: No significant change since comparisons. No definite new infarction.No intracranial hemorrhage. No tumor. No hydrocephalus. Multiple small chronic lacunar infarctions in the bilateral basal gangliaand left thalamus and deep left frontoparietal white matter, also well-visualized on MRI from 2 daysago. 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 Fluid in the left sphenoid sinus. CTA: Minimal atherosclerotic narrowing of a few intracranial arteries,e.g. the P2 segments of the posterior cerebral arteries, without a hemodynamically significantstenosis. No cervical carotid bifurcation stenosis. No vertebrobasilar artery stenosis. No dissection.Incidental note of retropharyngeal course of the right cervical internal carotid artery. IMPRESSION: 1. No acute infarction. 2. Multiple chronic lacunar infarctions, unchanged. 3. No hemodynamically significant stenosis of the major arteries of thehead and neck. Tiara Shukla M.D. John CT PROCEDURES * (ABNORMAL) Venous Blood Gas and Electrolytes CG8+, POCT (04/22/2023 1:58 PM CDT) [facility] Sample Site, POCT Venstick 04/22/2023 2:32 PM CDT PCSM Comment: ----ADDITIONAL INFORMATION---- Performed at the Point of Care pH, Venous, POCT, B 7.41 7.32 - 7.43 04/22/2023 2:32 PM CDT PCSM Comment: ----ADDITIONAL INFORMATION---- Performed at the Point of Care pCO2, Venous, POCT, B 44 41 - 51 mm Hg 04/22/2023 2:32 PM CDT PCSM Comment: ----ADDITIONAL INFORMATION---- Performed at the Point of Care pO2, Venous, POCT, B 29 Not Applicable mm Hg 04/22/2023 2:32 PM CDT PCSM Comment: ----ADDITIONAL INFORMATION---- Performed at the Point of Care Base Excess, Venous, POCT, B 3 Not Applicable mmol/L 04/22/2023 2:32 PM CDT PCSM Comment: ----ADDITIONAL INFORMATION---- Performed at the Point of Care HCO3, Venous, POCT, B 28 Not Applicable mmol/L 04/22/2023 2:32 PM CDT PCSM Comment: ----ADDITIONAL INFORMATION---- Performed at the Point of Care Sodium, POCT, B 135 135 - 145 mmol/L 04/22/2023 2:32 PM CDT PCSM Comment: ----ADDITIONAL INFORMATION---- Performed at the Point of Care Potassium, POCT, B 3.5(L) 3.6 - 5.2 mmol/L 04/22/2023 2:32 PM CDT PCSM Comment: ----ADDITIONAL INFORMATION---- Performed at the Point of Care Calcium, Ionized, POCT, B 4.70 4.65 - 5.30 mg/dL 04/22/2023 2:32 PM CDT PCSM Comment: ----ADDITIONAL INFORMATION---- Performed at the Point of Care Glucose, POCT, B 90 70 - 140 mg/dL 04/22/2023 2:32 PM CDT PCSM Comment: ----ADDITIONAL INFORMATION---- Performed at the Point of Care Hematocrit, POCT, B 41.0 35.5 - 44.9 % 04/22/2023 2:32 PM CDT PCSM Comment: ----ADDITIONAL INFORMATION---- Performed at the Point of Care Blood (Blood, Venous) 04/22/2023 1:58 PM CDT 04/22/2023 1:57 PM CDT Tiara Shukla M.D. LAB POCT ORDERABLES - DEVICE Performing Organization Address [facility] Co de Phone Number POC [facility] [address] [place] [address], [facility] PCSM [facility] POC [address] [place] [id number] * Lactate, POCT (04/22/2023 1:55 PM CDT) [facility] Lactate, POCT 0.74 0.50 - 2.20 mmol/L 04/22/2023 2:32 PM CDT PCLX Blood (Blood, Venous) 04/22/2023 1:55 PM CDT 04/22/2023 1:55 PM CDT Tiara Shukla M.D. LAB POCT ORDERABLES - DEVICE Performing Organization Address [facility] Co de Phone Number POC [facility] [address] [place] [address], [facility] PCLX [facility] POC [address] [place] [address] * (ABNORMAL) Lipid Panel (04/22/2023 1:51 PM CDT) [facility] Triglycerides 67 mg/dL 04/22/2023 2:58 PM CDT DTL Comment: ----REFERENCE VALUE---- Normal: <150 mg/dL Borderline High: 150-199 mg/dL High: 200-499 mg/dL Very High: > or =500 mg/dL Cholesterol, Total 255(H) mg/dL 2022 2:58 PM CDT DTL Comment: ----REFERENCE VALUE---- Desirable: < 200 mg/dL Borderline High: 200 - 239 mg/dL High: > or = 240 mg/dL Cholesterol, LDL, Calculated 168(H) mg/dL 04/22/2023 2:58 PM CDT DTL Comment: ----REFERENCE VALUE---- Desirable: <100 mg/dL Above Desirable: 100-129 mg/dL Borderline High: 130-159 mg/dL High: 160-189 mg/dL Very High: >=190 mg/dL ----ADDITIONAL INFORMATION---- LDL cholesterol calculated using the Peterson/NIH equation. Cholesterol, HDL, S 76 >=50 mg/dL 04/22/2023 2:58 PM CDT DTL Cholesterol, Non-HDL, Calculated 179(H) mg/dL 04/22/2023 2:58 PM CDT DTL Comment: ----REFERENCE VALUE---- Desirable: <130 mg/dL Above Desirable: 130-159 mg/dL Borderline High: 160-189 mg/dL High: 190-219 mg/dL Very High: > or =220 mg/dL Fasting (8 HR or more) No 04/22/2023 2:25 PM CDT DTL Blood (Blood, Venous) 04/22/2023 1:51 PM CDT 04/22/2023 2:25 PM CDT Fred Balderas M.D. LAB BLOOD ADD-ON [facility] [address] [place] [address], [facility] [address] [place] [address] * Thyroid Function [place] (04/22/2023 1:51 PM CDT) TSH, Sensitive 1.7 0.3 - 4.2 mIU/L 04/22/2023 2:58 PM CDT DTL Blood (Blood, Venous) 04/22/2023 1:51 PM CDT 04/22/2023 2:25 PM CDT Fred Balderas M.D. LAB BLOOD ADD-ON Performing Organization Address City/[facility]/ZIP Co de Phone Number [facility] [address] [place], [place] [phone] [place] [address] [address] [place] [address] * Hemoglobin A1c (04/22/2023 1:51 PM CDT) Hemoglobin A1c, B 5.1 4.0 - 5.6 % 04/22/2023 2:37 PM CDT DTL Blood (Blood, Venous) 04/22/2023 1:51 PM CDT 04/22/2023 2:11 PM CDT Fred Balderas M.D. LAB BLOOD ADD-ON Performing Organization Address City/[facility]/ZIP Co de Phone Number [facility] [address] [place], [place] [phone] [place] [address] [address] [place] [address] * APTT (Activated Partial Thromboplastin Time) (04/22/2023 1:51 PM CDT) Activated Partial Thrombopl Time, P 27 25 - 37 sec 04/22/2023 2:14 PM CDT [facility] Blood (Blood, Venous) 04/22/2023 1:51 PM CDT 04/22/2023 2:05 PM CDT Tiara Shukla M.D. LAB BLOOD ADD-ON Performing Organization Address City/[facility]/ZIP Co de Phone Number [facility] [address] [place], [place] [phone] [place] [address] [address] [place] [address] * Prothrombin Time (PT) (04/22/2023 1:51 PM CDT) Prothrombin Time, P 11.3 9.4 - 12.5 sec 04/22/2023 2:12 PM CDT [facility] INR 1.0 0.9 - 1.1 04/22/2023 2:12 PM CDT [facility] Comment: ----ADDITIONAL INFORMATION---- Standard intensity warfarin therapeutic range: 2.0 to 3.0 ?? High intensity warfarin therapeutic range: 2.5 to 3.5 Blood (Blood, Venous) 04/22/2023 1:51 PM CDT 04/22/2023 2:05 PM CDT Tiara Shukla M.D. LAB BLOOD ADD-ON Performing Organization Address City/[facility]/ZIP Co de Phone Number [facility] [address] [place] [address], [facility] STMA [facility] [address] [place] [address] * CBC without Differential (04/22/2023 1:51 PM CDT) [facility] Hemoglobin 14.1 11.6 - 15.0 g/dL 04/22/2023 2:07 PM CDT [facility] Hematocrit 42.0 35.5 - 44.9 % 04/22/2023 2:07 PM CDT [facility] Erythrocytes 4.81 3.92 - 5.13 x10(12)/L 04/22/2023 2:07 PM CDT [facility] MCV 87.3 78.2 - 97.9 fL 04/22/2023 2:07 PM CDT [facility] RBC Distrib Width 13.0 12.2 - 16.1 % 04/22/2023 2:07 PM CDT [facility] Platelet Count 244 157 - 371 x10(9)/L 04/22/2023 2:07 PM CDT [facility] Leukocytes 3.8 3.4 - 9.6 x10(9)/L 04/22/2023 2:07 PM CDT [facility] Blood (Blood, Venous) 04/22/2023 1:51 PM CDT 04/22/2023 2:05 PM CDT Tiara Shukla M.D. LAB BLOOD ADD-ON Performing Organization Address [facility]/ZIP Co de Phone Number [facility] [address] [place] [address], [facility] STMA [facility] [address] [place] [address] * Basic Metabolic Panel (04/22/2023 1:51 PM CDT) Potassium, P 3.8 3.6 - 5.2 mmol/L 04/22/2023 2:21 PM CDT [facility] Sodium, P 137 135 - 145 mmol/L 04/22/2023 2:21 PM CDT [facility] Chloride, P 99 98 - 107 mmol/L 04/22/2023 2:21 PM CDT [facility] Bicarbonate, P 27 22 - 29 mmol/L 04/22/2023 2:21 PM CDT [facility] Anion Gap, P 11 7 - 15 04/22/2023 2:21 PM CDT [facility] BUN (Blood Urea Nitrogen), P 15 6 - 21 mg/dL 04/22/2023 2:21 PM CDT [facility] Creatinine 0.59 0.59 - 1.04 mg/dL 04/22/2023 2:21 PM CDT [facility] Estimated GFR (eGFR) >90 >=60 mL/min/BSA 04/22/2023 2:21 PM CDT [facility] Comment: Estimated GFR calculated using the 2020 CKD_EPI creatinine equation. Calcium, Total, P 9.6 8.8 - 10.2 mg/dL 04/22/2023 2:21 PM CDT [facility] Glucose, P 94 70 - 140 mg/dL 04/22/2023 2:21 PM CDT [facility] Blood (Blood, Venous) 04/22/2023 1:51 PM CDT 04/22/2023 2:05 PM CDT Tiara Shukla M.D. LAB BLOOD ADD-ON [facility] [address] [place] [address], [facility] [address] [place] [address] * ECG 12 Lead (04/22/2023 12:52 PM CDT) Ventricular Rate ECG/Min 70 BPM MUSE AR Interval 168 ms MUSE QRSD Interval 96 ms MUSE QT Interval 422 ms MUSE QTC Interval 455 ms MUSE P Stanton 38 degrees MUSE R Stanton -1 degrees MUSE T Wave Stanton 17 degrees MUSE 04/22/2023 12:5 2 PM CDT 04/22/2023 1:13 PM CDT Impressions MUSE - 04/22/2023 1:13 PM CDT Normal sinus rhythm Moderate voltage criteria for LVH, may be normal variant Nonspecific ST abnormality No previous ECGs available Reviewed by MAREK Vaz Narrative Procedure Note Lauro Amin M.D., Ph.D. - 04/22/2023 IMPRESSION: Normal sinus rhythm Moderate voltage criteria for LVH, may be normal variant Nonspecific ST abnormality No previous ECGs available Reviewed by MRAEK Vaz Tiara Shukla M.D. ECG ORDERABLES MUSE NA documented in this encounter Visit Diagnoses Diagnosis Stroke (HCC)- Primary Stroke (HCC) documented in this encounter Administered Medications Inactive Administered Medications - up to 3 most recent administrations Medication Order MAR Action Action Date Dose Rate Site diphenhydrAMINE injection 50 mg (BENADRYL) 50 mg, intravenous, Once, On Tue04/22/23 at 1400, For 1 dose Given 04/22/2023 2:09 PM CDT 50 mg iohexoL 350 mg iodine/mL solution 1-200 mL (OMNIPAQUE) 1-200 mL, intravenous, Once in imaging, contrast, Starting on Tue04/22/23 at 1430, For 1 dose, Imaging Protocol Orders, Dose per Radiant Medication Guidelines Given 04/22/2023 2:30 PM CDT 100 mL sodium chloride (PF) 0.9 % injection 1-100 mL 1-100 mL, intravenous, Once, On Tue04/22/23 at 1431, For 1 dose, Imaging Protocol Orders Given 04/22/2023 2:31 PM CDT 35 mL sodium chloride 0.9 % injection 10 mL 10 mL, intravenous, As needed, line care, Starting on Tue04/22/23 at 1244, Peripheral Intravenous Catheter and Rapid Infusion Catheter, prior to blood sampling, post blood transfusion or post blood sampling sodium chloride 0.9 % injection 3 mL 3 mL, intravenous, As needed, line care, Starting on Tue04/22/23 at 1244, Prior to and following infusion and between multiple consecutive infusions: sodium chloride 0.9 % injection sodium chloride 0.9 % injection 3 mL 3 mL, intravenous, Every 12 hours scheduled, First dose on Tue04/22/23 at 2100, Peripheral Intravenous Catheter and Rapid Infusion Catheter, when no infusion to maintain patency documented in this encounter Active and Recently Administered Medications Times are shown in CDT. Scheduled Medication Order 04/20/2023 04/21/2023 04/22/2023 diphenhydrAMINE injection 50 mg (BENADRYL) (COMPLETED) 50 mg, intravenous, Once, On Tue04/22/23 at 1400, For 1 dose 1409 (Given - Provid er: Alfonso Andrews R.N.) sodium chloride (PF) 0.9 % injection 1-100 mL (COMPLETED) 1-100 mL, intravenous, Once, On Tue04/22/23 at 1431, For 1 dose, Imaging Protocol Orders 1431 (Given - Provid er: Crispin Zhao R.N.) sodium chloride 0.9 % injection 3 mL 3 mL, intravenous, Every 12 hours scheduled, First dose on Tue04/22/23 at 2100, Peripheral Intravenous Catheter and Rapid Infusion Catheter, when no infusion to maintain patency PRN Medication Order 04/20/2023 04/21/2023 04/22/2023 iohexoL 350 mg iodine/mL solution 1-200 mL (OMNIPAQUE) (COMPLETED) 1-200 mL, intravenous, Once in imaging, contrast, Starting on Tue04/22/23 at 1430, For 1 dose, Imaging Protocol Orders, Dose per Radiant Medication Guidelines 1430 (Given - Provid er: Crispin Zhao R.N. - Comment: [id number]) sodium chloride 0.9 % injection 10 mL 10 mL, intravenous, As needed, line care, Starting on Tue04/22/23 at 1244, Peripheral Intravenous Catheter and Rapid Infusion Catheter, prior to blood sampling, post blood transfusion or post blood sampling sodium chloride 0.9 % injection 3 mL 3 mL, intravenous, As needed, line care, Starting on Tue04/22/23 at 1244, Prior to and following infusion and between multiple consecutive infusions: sodium chloride 0.9 % injection documented in this encounter Care Teams Manager Retention Relationship Specialty Start Date End Date Elsewhere, Pcp PCP - General Internal Medicine 08/09/22 documented as of this encounter
--- OUTSIDE RECORDS SUMMARY | 2023-10-12 06:33 | XMS_ITS | Encounter Summary ---
Author Name Unknown Organization [facility] Address [address] [place] [address] Care Team Providers Care Newborn Hearing Screener Name Role Phone Elsewhere, Pcp Primary Care Provider Unavailabl e Encounter Details Date Type Department Care Team (Late st Contact Info) Description 04/11/2023 12:10 PM CDT Ancillary Procedure Department of Ophthalmology Social History [...] often do you attend chur ch or buddhism services? More than 4 times per year 10/12/2022 Do you belong to any clubs o r organizations such as yarsanism groups, unions, fraternal [...] and heating? Not hard at all 10/12/2022 [facility] of Occupat ional Health - [...] or slept in a detention (including now)? No 10/12/2022 Nutrition Answer Date [...] st Contact Info) Description 10/18/2023 2:00 PM SUPERVISOR TREE TRIMMING Telemedicine Division of Hematology in [place], [place] [address] [place] [address] Arturo Aleman M.D. [address] [place] [address] documented as of this encounter Procedures Procedure Name Priority Date/Time Associated Diagnosis Comments OPHTHALMOLOGY IMAGE EXAM Routine 04/11/2023 12:10 PM CDT documented in this encounter Results * Optical Coherence Tomography (OCT)-Ophthalmology Image Exam (04/11/2023 12:10 PM CDT) 04/11/2023 12:1 0 PM CDT Narrative IIMS - 04/11/2023 12:26 PM CDT This order has been created and auto-finalized to support the import of images acquired without order. The clinical documentation to support these images can be found on the encounter that produced images. Provider Not In System IMG NON RAD IMAGI NG PROCEDURES IIMS NA documented in this encounter Visit Diagnoses Not on filedocumented in this encounter Care Teams Newborn Hearing Screener Relationship Specialty Start Date End Date Elsewhere, Pcp PCP - General Internal Medicine 08/09/22 documented as of this encounter
--- OUTSIDE RECORDS SUMMARY | 2023-10-12 06:33 | XMS_ITS | Encounter Summary ---
Author Name Unknown Organization [facility] Address [address] [place] [address] Care Team Providers Care Mobile Phone Salesperson Name Role Phone Elsewhere, Pcp Primary Care Provider Unavailabl e Encounter Details Date Type Department Care Team (Late st Contact Info) Description 04/15/2023 8:45 AM CDT Ancillary Procedure Department of Ophthalmology Social [...] often do you attend chur ch or anglican services? More than 4 times per year 10/12/2022 Do you belong to any clubs o r organizations such as taoist groups, unions, fraternal [...] and heating? Not hard at all 10/12/2022 [facility] of Occupat ional Health - Occupational Stress [...] or slept in a correction (including now)? No 10/12/2022 Nutrition Answer Date [...] st Contact Info) Description 10/18/2023 2:00 PM GIN CLERK Telemedicine Division of Hematology in [place], [place] [address] [place] [address] Arturo Aleman M.D. [address] [place] [address] documented as of this encounter Procedures Procedure Name Priority Date/Time Associated Diagnosis Comments OPHTHALMOLOGY IMAGE EXAM Routine 04/15/2023 8:45 AM CDT documented in this encounter Results * Visual Schaffer (VF)-Ophthalmology Image Exam (04/15/2023 8:45 AM CDT) 04/15/2023 8:44 AM CDT Narrative IIMS - 04/15/2023 9:15 AM CDT This order has been created and auto-finalized to support the import of images acquired without order. The clinical documentation to support these images can be found on the encounter that produced images. Provider Not In System IMG NON RAD IMAGI NG PROCEDURES IIMS NA documented in this encounter Visit Diagnoses Not on filedocumented in this encounter Care Teams Mobile Phone Salesperson Relationship Specialty Start Date End Date Elsewhere, Pcp PCP - General Internal Medicine 08/09/22 documented as of this encounter
--- OUTSIDE RECORDS SUMMARY | 2023-10-12 06:33 | XMS_ITS | Encounter Summary ---
Author Name Unknown Organization [facility] Address [address] [place] [address] Care Team Providers Care Mechanical Intern Name Role Phone Elsewhere, Pcp Primary Care Provider Unavailabl e Encounter Details Date Type Department Care Team (Late st Contact Info) Description 04/22/2023 Documentation Department of Ophthalmology in [place], [place] [address] [place] [phone] Enid Atkins M.D., M.S. [address] [place] [phone] Social History Tobacco Use Types Packs/Day Years [...] often do you attend chur ch or moravian services? More than 4 times per year 10/12/2022 Do you belong to any clubs o r organizations such as caodaism groups, unions, fraternal [...] heating? Not hard at all 10/12/2022 [facility] of Occupat ional Health - Occupational Stress [...] as of this encounter Progress Notes * Enid Atkins M.D., M.S. - 04/22/2023 9:39 AM CDT I was able to connect with Ms. Meyer, and recommended she go to [place]'s ED as soon as possiblefor expedited stroke workup as per Dr. Fitch's last note. documented in this encounter Plan of Treatment Upcoming Encounters Date Type Department Care Team (Late st Contact Info) Description 10/18/2023 2:00 PM DEPARTMENTAL BUYER Telemedicine Division of Hematology in [place], [place] [address] [place] [address] Arturo Aleman M.D. [address] [place] [address] documented as of this encounter Visit Diagnoses Not on filedocumented in this encounter Care Teams Mechanical Intern Relationship Specialty Start Date End Date Elsewhere, Pcp PCP - General Internal Medicine 08/09/22 documented as of this encounter
--- OUTSIDE RECORDS SUMMARY | 2023-10-12 06:33 | XMS_ITS | Encounter Summary ---
Author Name Unknown Organization [facility] Address [address] [place] [address] Care Team Providers Care Draughtsman Name Role Phone Elsewhere, Pcp Primary Care Provider Unavailabl e Encounter Details Date Type Department Care Team (Late st Contact Info) Description 04/21/2023 Documentation Department of Ophthalmology in [place], [place] [address] [place] [phone] Elana Fitch M.D. [address] [place] [address] Social History Tobacco Use Types Packs/Day Years [...] often do you attend chur ch or taoist services? More than 4 times per year 10/12/2022 Do you belong to any clubs o r organizations such as latter day groups, unions, [...] and heating? Not hard at all 10/12/2022 [facility] of Occupat ional Health - Occupational [...] Progress Notes * Elana Fitch M.D. - 04/21/2023 5:33 PM CDT Repeat MRI brain shows new small punctate infarct in the right caudate area. I have tried calling patient multiple times have left messages on her home phone. Cell phone does not accept voicemail. Given she is not scheduled in cerebrovascular clinic until May, I recommend going to the emergency department for an expedited work up but I have been unable to rely that message to patient. documented in this encounter Plan of Treatment Upcoming Encounters Date Type Department Care Team (Late st Contact Info) Description 10/18/2023 2:00 PM INDUSTRIAL ENGINEERING INTERN Telemedicine Division of Hematology in [place], [place] [address] [place] [address] Arturo Aleman M.D. [address] [place] [address] documented as of this encounter Visit Diagnoses Not on filedocumented in this encounter Care Teams Draughtsman Relationship Specialty Start Date End Date Elsewhere, Pcp PCP - General Internal Medicine 08/09/22 documented as of this encounter
--- OUTSIDE RECORDS SUMMARY | 2023-10-12 06:33 | XMS_ITS | Encounter Summary ---
Author Name Unknown Organization [facility] Address [address] [place] [address] Care Team Providers Care Watershed Coordinator Name Role Phone Elsewhere, Pcp Primary Care Provider Unavailabl e Encounter Details Date Type Department Care Team (Latest Contact Info) Description 04/15/2023 9:00 AM CDT Ancillary Procedure Department of Ophthalmology in [place], [place] [address] [place] [address] Elana Fitch M.D. [address] [place] [phone] Hemianopsia Homonymous Left Social History Tobacco Use Types Packs/Day Years [...] often do you attend chur ch or rastafarian services? More than 4 times per year 10/12/2022 Do you belong to any clubs o r organizations such as rastafarian groups, unions, fraternal [...] or slept in a snf (including now)? No 10/12/2022 Nutrition Answer Date [...] st Contact Info) Description 10/18/2023 2:00 PM LACE WEAVER Telemedicine Division of Hematology in [place], [place] [address] [place] [address] Arturo Aleman M.D. [address] [place] [address] documented as of this encounter Procedures Procedure Name Priority Date/Time Associated Diagnosis Comments AUTOMATED VF - EXTENDED - OU - BOTH EYES Routine 04/15/2023 8:47 AM CDT Hemianopsia Homonymous Left documented in this encounter Results * Automated VF - [...] Left documented in this encounter Care Teams Watershed Coordinator Relationship Specialty Start Date End Date Elsewhere, Pcp PCP - General Internal Medicine 08/09/22 documented as of this encounter
--- OUTSIDE RECORDS SUMMARY | 2023-10-12 06:33 | XMS_ITS | Encounter Summary ---
Author Name Unknown Organization [facility] Address [address] [place] [address] Care Team Providers Care Valve Machine Operator Name Role Phone Elsewhere, Pcp Primary Care Provider Unavailabl e Encounter Details Date Type Department Care Team (Late st Contact Info) Description 04/20/2023 Documentation Department of Ophthalmology in [place], [place] [address] [place] [address] José Urbano M.D. [address] [place] [address] Social History Tobacco Use Types Packs/Day Years [...] often do you attend chur ch or zoroastrianism services? More than 4 times per year 10/12/2022 Do you belong to any clubs o r organizations such as gnosticism groups, unions, fraternal [...] and heating? Not hard at all 10/12/2022 [facility]at ional [facility] - [...] or slept in a penitentiary (including now)? No 10/12/2022 Nutrition Answer Date [...] PM CDT documented as of this encounter Consult Notes * José Urbano M.D. - 04/20/2023 11:12 AM CDT I got a call from the patient regarding the MRI. She was wondering about her visual cobb results and she wanted to know if she still needed to proceed with the MRI. I informed her that her visual cobb 04/15/2023 was normal except trace nonspecific scatter and I recommended going forward with theMRI with contrast as planned in Dr. Fitch's note. documented in this encounter Plan of Treatment Upcoming Encounters Date Type Department Care Team (Cal st Contact Info) Description 10/18/2023 2:00 PM EMERGENCY DEPARTMENT DIRECTOR Telemedicine Division of Hematology in [place], [place] [address] [place] [address] Arturo Aleman M.D. [address] [place] [address] documented as of this encounter Visit Diagnoses Not on filedocumented in this encounter Care Teams Valve Machine Operator Relationship Specialty Start Date End Date Elsewhere, Pcp PCP - General Internal Medicine 08/09/22 documented as of this encounter
--- OUTSIDE RECORDS SUMMARY | 2023-10-12 06:33 | XMS_ITS | Encounter Summary ---
Author Name Unknown Organization [facility] Address [address] [place] [address] Care Team Providers Care Tower Operator Name Role Phone Elsewhere, Pcp Primary Care Provider Unavailabl e Encounter Details Date Type Department Care Team (Late st Contact Info) Description 04/11/2023 Ancillary Procedure Department of Ophthalmology Social History [...] often do you attend chur ch or voodoo services? More than 4 times per year 10/12/2022 Do you belong to any clubs o r organizations such as moravian groups, unions, fraternal [...] and heating? Not hard at all 10/12/2022 [facility]at ional [facility] - Occupational [...] or slept in a custodial (including now)? No 10/12/2022 Nutrition Answer Date [...] st Contact Info) Description 10/18/2023 2:00 PM PAPER SORTER AND COUNTER Telemedicine Division of Hematology in [place], [place] [address] [place] [address] Arturo Aleman M.D. [address] [place] [address] documented as of this encounter Procedures Procedure Name Priority Date/Time Associated Diagnosis Comments OPHTHALMOLOGY IMAGE EXAM Routine 04/11/2023 12:00 AM CDT documented in this encounter Results * Eyes Color-Ophthalmology Image Exam (04/11/2023 12:00 AM CDT) Narrative IIMS - 04/11/2023 12:11 PM CDT This order has been created and auto-finalized to support the import of images acquired without order. The clinical documentation to support these images can be found on the encounter that produced images. Provider Not In System IMG NON RAD IMAGI NG PROCEDURES [facility]IM[facility] NA documented in this encounter Visit Diagnoses Not on filedocumented in this encounter Care Teams Tower Operator Relationship Specialty Start Date End Date Elsewhere, Pcp PCP - General Internal Medicine 08/09/22 documented as of this encounter
--- OUTSIDE RECORDS SUMMARY | 2023-10-12 06:33 | XMS_ITS | Encounter Summary ---
Author Name Unknown Organization [facility] Address [address] [place] [address] Care Team Providers Care Weld Technician Name Role Phone Elsewhere, Pcp Primary Care Provider Unavailabl e Encounter Details Date Type Department Care Team (Latest Contact Info) Description 05/03/2023 Orders Only Division of Hematology in [place], [place] [address] [place] [address] Arturo Aleman M.D. [address] [place] [address] Waldenstrom's Macroglobulinemia (HCC) (Primary Dx) Social History [...] and heating? Not hard at all 10/12/2022 [facility] Occupat ional Health - Occupational [...] slept in a skilled nursing (including now)? No 10/12/2022 Nutrition Answer Date [...] st Contact Info) Description 10/18/2023 2:00 PM RESTAURANT HOURLY TEAM MEMBER Telemedicine Division of Hematology in [place], [place] [address] [place] [address] Arturo Aleman M.D. [address] [place] [address] Scheduled Orders Name Type Priority Associated Diagnoses Orde r Schedule Reticulocytes Lab Routine Waldenstrom's Macroglobulinemia (HCC) Expected: 10/10/2023, Expires: 08/02/2024 Monoclonal Gammopathy Diagnostic Lab Routine Waldenstrom's Macroglobulinemia (HCC) Expected: 10/10/2023, Expires: 08/02/2024 Immunoglobulins (IgG, IgA, and IgM) Lab Routine Waldenstrom's Macroglobulinemia (HCC) Expected: 10/10/2023, Expires: 08/02/2024 Viscosity Lab Routine Waldenstrom's Macroglobulinemia (HCC) Expected: 10/10/2023, Expires: 08/02/2024 documented as of this encounter Visit Diagnoses Diagnosis Waldenstrom's Macroglobulinemia (HCC)- Primary documented in this encounter Care Teams Weld Technician Relationship Specialty Start Date End Date Elsewhere, Pcp PCP - General Internal Medicine 08/09/22 documented as of this encounter
--- OUTSIDE RECORDS SUMMARY | 2023-10-12 06:33 | XMS_ITS | Encounter Summary ---
Author Name Unknown Organization [facility] Address [address] [place] [address] Care Team Providers Care Computer Engineering Professor Name Role Phone Elsewhere, Pcp Primary Care Provider Unavailabl e Reason for Visit * Reason Onset Date Comments Results 04/19/2023 Encounter Details Date Type Department Care Team (Late st Contact Info) Description 04/19/2023 Clinical Communication Department of Neurology in [place], [place] [address] [place] [address] Elana Fitch M.D. [address] [place] [phone] Results Social History Tobacco Use Types Packs/Day Years [...] often do you attend chur ch or advent services? More than 4 times per year [...] and heating? Not hard at all 10/12/2022 [facility] Occupat ional Health - Occupational [...] st Contact Info) Description 10/18/2023 2:00 PM NURSE OFFICE Telemedicine Division of Hematology in [place], [place] [address] [place] [address] Arturo Aleman M.D. [address] [place] [address] documented as of this encounter Visit Diagnoses Not on filedocumented in this encounter Care Teams Computer Engineering Professor Relationship Specialty Start Date End Date Elsewhere, Pcp PCP - General Internal Medicine 08/09/22 documented as of this encounter
--- OUTSIDE RECORDS SUMMARY | 2023-10-12 06:34 | XMS_ITS | Encounter Summary ---
Author Name Unknown Organization [facility] Address [address] [place] [address] Care Team Providers Care Mysql Database Administrator Name Role Phone Elsewhere, Pcp Primary Care Provider Unavailabl e Encounter Details Date Type Department Care Team (Latest Contact Info) Description 10/18/2022 8:30 AM FILM CREW MEMBER Clinical Communication Virtual Review in [place], [place] [address] [place] [address] Social History Tobacco Use Types Packs/Day Years [...] often do you attend chur ch or buddhist services? More than 4 times per year [...] and heating? Not hard at all 10/12/2022 [facility] Occupat ional Health - Occupational [...] Contact Info) Description 10/18/2023 2:00 PM FILM CREW MEMBER Telemedicine Division of Hematology in [place], [place] [address] [place] [address] Arturo Aleman M.D. [address] [place] [address] documented as of this encounter Visit Diagnoses Not on filedocumented in this encounter Care Teams Mysql Database Administrator Relationship Specialty Start Date End Date Elsewhere, Pcp PCP - General Internal Medicine 08/09/22 documented as of this encounter
--- OUTSIDE RECORDS SUMMARY | 2023-10-12 06:34 | XMS_ITS | Encounter Summary ---
Author Name Unknown Organization [facility] Address [address] [place] [address] Care Team Providers Care Pharmacy Technician Per Diem Name Role Phone Elsewhere, Pcp Primary Care Provider Unavailabl e Encounter Details Date Type Department Care Team (Latest Contact Info) Description 04/11/2023 10:00 AM CDT Ancillary Procedure Department of Ophthalmology in [place], [place] [address] [place] [address] Elana Fitch M.D. [address] [place] [phone] Hemianopsia Homonymous Left Social History Tobacco Use [...] often do you attend chur ch or worship services? More than 4 times per year [...] and heating? Not hard at all 10/12/2022 [facility] Occupat ional Health - Occupational [...] st Contact Info) Description 10/18/2023 2:00 PM MATE FIRST Telemedicine Division of Hematology in [place], [place] [address] [place] [address] Arturo Aleman M.D. [address] [place] [address] documented as of this encounter Procedures Procedure Name Priority Date/Time Associated Diagnosis Comments AUTOMATED VF - EXTENDED - OU - BOTH EYES Routine 04/11/2023 9:25 AM CDT Hemianopsia Homonymous Left documented in this encounter Results * Automated VF - Extended - OU - Both Eyes (04/11/2023 9:25 AM CDT) Narrative OPHTHALMOLOGY IMAGING EXAM - 04/11/2023 4:56 PM CDT Right Eye Automated visual field device used was Zeiss. Strategy was JERARDO. Threshold was 24-2. Eyelid was untaped. Mean deviation was -0.01 decibels. Pattern standard deviation (PSD) was 2.02 decibels. Left Eye Automated visual field device used was Zeiss. Strategy was JERARDO. Threshold was 24-2. Eyelid was untaped. Mean deviation was -2.37 decibels. Pattern standard deviation (PSD) was 1.90 decibels. Notes See note. Elana Fitch M.D. OPHTH VISUAL FIEL D OPHTHALMOLOGY IMAGING EXAM documented in this encounter Visit Diagnoses Diagnosis Hemianopsia Homonymous Left documented in this encounter Care Teams Pharmacy Technician Per Diem Relationship Specialty Start Date End Date Elsewhere, Pcp PCP - General Internal Medicine 08/09/22 documented as of this encounter
--- OUTSIDE RECORDS SUMMARY | 2023-10-12 06:34 | XMS_ITS | Encounter Summary ---
Author Name Unknown Organization [facility] Address [address] [place] [address] Care Team Providers Care Compensation Programs Manager Name Role Phone Elsewhere, Pcp Primary Care Provider Unavailabl e Reason for Referral * Outpatient (Routine) - Closed Specialty Diagnoses / Procedures Referred By Radha ge Referred To Contact Neurology Diagnoses Stroke (HCC) Elana Fitch M.D. [address] [place] [address] [facility] Referral ID Status Reason Start Date Expiration Date Visits Re quested Visits Authorized [id number] Closed 04/11/2023 04/10/2024 1 1 Reason for Visit * Appointment Request (Routine) - Closed Specialty Diagnoses / Procedures Referred By Radha ge Referred To Contact Ophthalmology Diagnoses Stroke (HCC) Ja Carbajal O.D. [address], [place] [address] Referral ID Status Reason Start Date Expiration Date Visits Re quested Visits Authorized [id number] Closed 01/27/2023 01/27/2024 1 1 Encounter Details Date Type Department Care Team (Latest Contact Info) Description 04/11/2023 3:15 PM CDT Comprehensive Visit Department of Ophthalmology in [place], [place] [address] [place] [phone] Elana Fitch M.D. [address] [place] [address] Stroke (HCC) (Primary Dx) Social History Tobacco [...] How often do you attend chur or yazidism services? More than 4 times per year 10/12/2022 Do you belong to any clubs o r organizations such as yazdanism groups, unions, fraternal [...] and heating? Not hard at all 10/12/2022 [facility] of Occupat ional Health - Occupational Stress [...] a [place] (including now)? No 10/12/2022 Nutrition Answer Date [...] as of this encounter Consult Notes * Elana Fitch M.D. - 04/11/2023 3:15 PM CDT ASSESSMENT / PLAN #1 Left homonymous superior quadrantanopsia; improved #2 Abnormal MRI She noted left sided vision loss in November. Feels this was intermittent and no longer occurred since. She was seen locally in December, -2 automated visual cobb show a left homonymous superior quadrantanopsia. A non-contrasted brain MRI was obtained which to my review shows a new T2 hyperintense lesion of the right parietooccipital lobe. On exam today vision is 20/20 both eyes with full color plates. No relative afferent pupillary defect. Visual cobb show subtle scattered defects in right eye temporal cobb and nasal field of the left eye. OCT shows normal/symmetric RNFL. There may be subtle right homonymous ganglion cell layer thinning which correlated with the initial cobb obtained outside. In comparing the MRI obtained from June 2022 to December of 2022, there appears to be new ischemic changes. There is also SWI changes. The homonymous field defect does not appear to be present any longer and this may have improved but recommend getting a MRI with contrast to ensure there are no signs of inflammatory changes especially given her history. Plan: MRI brain with contrast Repeat visual cobb 30-2 Cerebrovascular consult for strokes #3 Ptosis, left upper eyelid Probably related to lymphoma and previous surgery - present since [address]. evaluated [address] Patricio. 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 s/p chemo, ended February 2017 #5 Waldenstrom macroglobulinemia Follows with hematology #6 Pseudophakia, both eyes Stable HPI Referred by Ja Carbajal O.D. ([facility]) for stroke. In june there was a question of possible stroke. In November 2022 she noticed some missing vision in the left upper peripheral vision loss. She feels this was intermittent. Can't tell if affected only left eye or both eyes as she never checked monocularly. This happened 4 times in the month of November, and each time it took about an hour with spontaneous resolution. She was unable to see through the defect. This has not occurred again since. Denies eye pain, headaches, flashes, or double vision. No headaches, jaw pain, fevers, chills or unexplained weight loss. Left eyelid has been drooping since 2011 after the biopsy. No other recent focal neurological symptoms. PMHx: Waldenstrom's macroglobulinemia, presumed stroke POHx: bilateral pseudophakia, left YAG, left superior homonymous quadrantanopia, left subconjunctival lymphoma (biopsy , 6 cycles of chem w/ last in February 2012, repeat biopsy showed lymphoma, chemo ended February 2017), refraction disorder Medications: Record Review: 08.30.22 Dr. Sol: Mrs. Meyer was accompanied by her , referred for evaluation of possible cerebrovascular disease. She was initially seen by one of our resident-physicians, Dr. Flores. See his note for the full details of the history and exam. Mrs. Meyer had an episode on November 07, 2021 when she woke up from a daytime nap and experienced right-sided paresthesia. There were no motor problems with the paresthesia involves the entirety of the left side of her body and face. Therewas some evolution after awakening but it was largely complete within a short time after awakening.This has persisted. It is now reduced in her right flank but she still has it in the right limbs. Ireviewed her outside MRI brain scan from July 11, 2022. There were no large strokes but there were a number of T2 hyperintensities that were larger an area than simply to be written off to leukoaraiosis. Some of these certainly reflected small cerebrovascular events given the central clearing area in the middle of a region of T2 hyperintensity. Overall, the findings reflected small-vessel cere brovascular disease more than expected for simple leukoaraiosis. Mrs. Meyer has a history of Waldenstrom's macroglobulinemia. Since 2016, she is been off treatment and been stable. EXAM: She had mild left ptosis related to the lymphoma history. Her eye movements were intact testing both pursuit and voluntary gaze. Her eyes were conjugate. Her pupils were about 3.5 mm, symmetricand reactive to light. Her voluntary facial contraction was normal. Speech and voice seemed normal.Tongue strength was unremarkable. Her palate elevated in the midline. There was no evidence of tongue atrophy or fasciculation. IMPRESSION: 1. 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 2. Hypertension. The character of the symptoms experienced in June and persistent to this time reflect a small stroke. Her MRI brain scan documents small vesselcerebrovascular disease. We looked at her MRI brain scan and discussed that at some length. 5.2.23 Ja Carbajal O.D.: Patient has a small stroke in June 2022. She feels like she is issing vision, especially when reading she will feel like some of the letters on the page are not there.States that this feeling will come and go. Sometimes she feels like shie is not missing any vision and other times it is very bothersome. Thought that it was only OD but states that she now noticing it in OS. Describes it as a black cloud covering part of her vision. States that id did not start atthe same time as her stroke. It has happened about four times and started in November. EXAM: Vision with correction right 20/20-1, left 20/25; PERRL, no APD; EOMS full OU; IOP 13/12; SLEOU - pcIOL, left post YAG, left conjunctiva mildly pink superiorly with diffuse salmon patch, remainder normal; DFE OU - C/D 0.45/0.3, disc pink with distinct margins, posterior vitreous detachments,left fundus superior temporal CRS. HVF 24-2 FAST: Right MD -10.28, PSD 10.96, FT 31, SN quad defect reflecting patient's complaint of left upper VF abnormality; Left MD -7.39, PSD 9.62, FT 37, ST quad defect reflecting patient's complaint of left upper VF abnormality; left superior homonymous quadrantanopia. 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 Retina is otherwise healthy with no other possible explanation for patient's symptoms beside the stroke. Visual field performed today that reflects the stroke she had, left superior homonymous quadrantanopia OU. Lengthy discussion about etiology of strange visual field defect in the left/upper portion of botheyes; patient noticing defect mostly when concentrating on something/reading/etc. Unclear as to whypatient is now noticing these symptoms versus directly after the stroke incident in June 2002 -possible that the symptom has always actually been there and possible that something has changed with the stroke since June. 5.22.23 MR Head/Brain without contrast: 1. No acute infarction, mass effect or recent intracranial hemorrhage. 2. Chronic lacunar infarctions in the bilateral basal ganglia, thalami and right cerebellar hemisphere. Small chronic infarction right occipital lobe. 3. Multiple chronic microhemorrhages in the brain with distribution typical for hypertensive angiopathy. Given the presence of few chronic microhemorrhages at the subcortical-subcortical interface of both cerebral hemispheres, superimposed cerebral amyloid angiopathy could also be considered. 4. Moderate chronic microvascular ischemic changes and mild diffuse cerebral volume loss. 5. Small left maxillary sinus air-fluid level raises the possibility of acute sinusitis. ROS: all positives are listed in the HPI and all other elements are negative or not pertinent to the patient's presentation. I have reviewed the family history, past history, and social history from the patients Epic, care everywhere, and documents scanned into system. The patient's prior records were reviewed in detail, including prior testing and examinations. documented in this encounter Plan of Treatment Upcoming Encounters Date Type Department Care Team (Late st Contact Info) Description 10/18/2023 2:[address] Telemedicine Division of Hematology in [place], [place] [address] [place] [address] Arturo Aleman M.D. [address] [place] [address] Scheduled Referrals Name Type Priority Associated Diagnoses Order Schedule Neurology - Cerebrovascular consult (clinic) Outpatient Referral Routine Stroke (HCC) Expected: 04/11/2023 (Approximate), Expires: 07/12/2024 documented as of this encounter Visit Diagnoses Diagnosis Stroke (HCC)- Primary documented in this encounter Care Teams Compensation Programs Manager Relationship Specialty Start Date End Date Elsewhere, Pcp PCP - General Internal Medicine 08/09/22 documented as of this encounter
--- OUTSIDE RECORDS SUMMARY | 2023-10-12 06:34 | XMS_ITS | Encounter Summary ---
Author Name Unknown Organization [facility] Address [address] [place] [address] Care Team Providers Care Vinegar Maker Name Role Phone Elsewhere, Pcp Primary Care Provider Unavailabl e Encounter Details Date Type Department Care Team (Late st Contact Info) Description 09/29/2016 Historical Ophthalmology [facility] Arron Patricio M.D. [address] [place] [address] Social History Tobacco Use Types Packs/Day Years Used Date Smoking Tobacco: Never Assessed Sex and Gender Information Value Date Recorded Sex Assigned at Female 03/05/2018 7:34 PM CDT Gender Identity Female 03/05/2018 7:34 PM CDT Sexual Orientation Straight 03/05/2018 7: 34 PM CDT documented as of this encounter Progress Notes * Arron Patricio M.D. - 09/29/2016 9:10 AM [...] / PLAN Consult requested by: Bereket Espino [id number] #1 Subconjunctival lymphoma, left eye s/p incisional [...] right eye CDM Reports - EYEGEN Id: [id number] Status: Fnl documented in this encounter Plan of Treatment Upcoming Encounters Date Type Department Care Team (Late st Contact Info) Description 10/18/2023 2:00 PM OCEANOGRAPHY TEACHER Telemedicine Division of Hematology in [place], [place] [address] [place] [address] Arturo Aleman M.D. [address] [place] [address] documented as of this encounter Visit Diagnoses Not on filedocumented in this encounter Care Teams Vinegar Maker Relationship Specialty Start Date End Date Elsewhere, Pcp PCP - General Internal Medicine 08/09/22 documented as of this encounter
--- OUTSIDE RECORDS SUMMARY | 2023-10-12 06:34 | XMS_ITS | Encounter Summary ---
Author Name Unknown Organization [facility] Address [address] [place] [address] Care Team Providers Care Binding End Stitcher Name Role Phone Elsewhere, Pcp Primary Care Provider Unavailabl e Reason for Referral * MRI/CAT/PET Scan (Routine) - Closed Specialty Diagnoses / Procedures Referred By Radha ge Referred To Contact Radiology Diagnoses Hemianopsia Homonymous Left Procedures MR Brain without and with IV Contrast Elana Fitch M.D. [address] [place] [address] [facility] Referral ID Status Reason Start Date Expiration Date Visits Re quested Visits Authorized [id number] Closed 02/15/2023 02/15/2024 1 1 Reason for Visit * Reason Onset Date Comments Pre-visit Testing Orders 02/14/2023 Encounter Details Date Type Department Care Team (Latest Contact Info) Description 02/14/2023 Clinical Communication Department of Ophthalmology in [place], [place] [address] [place] [phone] Elana Fitch M.D. [address] [place] [phone] Pre-visit Testing Orders Social History Tobacco Use Types Packs/Day Years [...] often do you attend chur ch or temple services? More than 4 times per year 10/12/2022 Do you belong to any clubs o r organizations such as taoism groups, unions, fraternal [...] and heating? Not hard at all 10/12/2022 [facility] [place] of Occupat ional Health - Occupational Stress [...] as of this encounter Miscellaneous Notes * Addendum Note - Alethea Coffey C.O.A. - 02/15/2023 10:32 AM CDTAddended by: ALETHEA COFFEY on: 02/15/2023 10:32 AM Modules accepted: Orders * Telephone Encounter - Alethea Coffey C.O.A. - 02/15/2023 10:30 AM CDT Orders placed. documented in this encounter Plan of Treatment Upcoming Encounters Date Type Department Care Team (Late st Contact Info) Description 10/18/2023 2:00 PM NURSE GYNECOLOGY Telemedicine Division of Hematology in [place], [place] [address] [place] [address] Arturo Aleman M.D. [address] [place] [address] documented as of this encounter Results * MR Brain without and with IV Contrast (04/20/2023 3:09 PM CDT) Anatomical Region Laterality Modality Head, Brain, Neuroradiology [facility], Neuroradiology [facility], Neuroradiology [facility] N/A Magnetic Resonance 04/21/2023 7:41 AM CDT [...] evidence of intracranial or orbital lymphoma. Elana GLEASON MRI PROCEDURE S * Optical Coherence Tomography - Optic Nerve - OU - Both Eyes (04/11/2023 12:18 PM CDT) [facility] OPHTHALMOLOGY IMAGING EXAM - 04/11/2023 4:56 PM CDT OCT device used was [employer]rus . Right Eye Reliability was good. Average RNFL was 78.00 microns. Ganglion cell layer was 66.00 microns. Left Eye Reliability was good. Average RNFL was 74.00 microns. Ganglion cell layer was 64.00 microns. Notes SMG See note. Elana Fitch M.D. OPHTH TOMOGRAPHY Performing Organization Address [facility] de Phone Number OPHTHALMOLOGY IMAGING EXAM * Fundus Photos - OU - Both Eyes (04/11/2023 12:18 PM CDT) [facility] OPHTHALMOLOGY IMAGING EXAM - 04/11/2023 4:56 PM CDT Right Eye Field of view is standard view. Fundus photo type obtained is Color. Left Eye Field of view is standard view. Fundus photo type obtained is Color. Elana Fitch M.D. OPHTH PHOTOGRAPHY Performing Organization Address [facility] de Phone Number OPHTHALMOLOGY IMAGING EXAM * Automated VF - Extended - OU - Both Eyes (04/11/2023 9:25 AM CDT) [facility] OPHTHALMOLOGY IMAGING EXAM - 04/11/2023 4:56 PM [...] Elana Fitch M.D. OPHTH VISUAL FIEL D Performing Organization Address [facility] de Phone Number OPHTHALMOLOGY IMAGING EXAM documented in this encounter Visit Diagnoses Diagnosis Hemianopsia Homonymous Left- Primary Hemianopsia Homonymous Left Hemianopsia Homonymous Left Hemianopsia Homonymous Left Hemianopsia Homonymous Left documented in this encounter Care Teams Binding End Stitcher Relationship Specialty Start Date End Date Elsewhere, Pcp PCP - General Internal Medicine 08/09/22 documented as of this encounter
--- OUTSIDE RECORDS SUMMARY | 2023-10-12 06:34 | XMS_ITS | Encounter Summary ---
Author Name Unknown Organization [facility] Address [address] [place] [address] Care Team Providers Care Financial Sales Manager Name Role Phone Elsewhere, Pcp Primary Care Provider Unavailabl e Encounter Details Date Type Department Care Team (Latest Contact Info) Description 04/11/2023 11:15 AM CDT Ancillary Procedure Department of Ophthalmology in [place], [place] [address] [place] [address] Elana Fitch M.D. [address] [place] [phone] Hemianopsia Homonymous Left Social History Tobacco Use [...] often do you attend chur ch or adventism services? More than 4 times per year 10/12/2022 Do you belong to any clubs o r organizations such as mandaeism groups, unions, fraternal [...] and heating? Not hard at all 10/12/2022 [facility] of Occupat ional Health - Occupational [...] slept in a group home (including now)? No 10/12/2022 Nutrition Answer [...] st Contact Info) Description 10/18/2023 2:00 PM IMPLEMENTATION TECHNICIAN Telemedicine Division of Hematology in [place], [place] [address] [place] [address] Arturo Aleman M.D. [address] [place] [address] documented as of this encounter Procedures Procedure Name Priority Date/Time Associated Diagnosis Comments FUNDUS PHOTOS - OU - BOTH EYES Routine 04/11/2023 12:18 PM CDT Hemianopsia Homonymous Left documented in this encounter Results * Fundus Photos - OU - Both Eyes (04/11/2023 12:18 PM CDT) Narrative OPHTHALMOLOGY IMAGING EXAM - 04/11/2023 4:56 PM CDT Right Eye Field of view is standard view. Fundus photo type obtained is Color. Left Eye Field of view is standard view. Fundus photo type obtained is Color. Elana Fitch M.D. OPHTH PHOTOGRAPHY OPHTHALMOLOGY IMAGING EXAM documented in this encounter Visit Diagnoses Diagnosis Hemianopsia Homonymous Left documented in this encounter Care Teams Financial Sales Manager Relationship Specialty Start Date End Date Elsewhere, Pcp PCP - General Internal Medicine 08/09/22 documented as of this encounter
--- OUTSIDE RECORDS SUMMARY | 2023-10-12 06:34 | XMS_ITS | Encounter Summary ---
Author Name Unknown Organization [facility] Address [address] [place] [address] Care Team Providers Care Marketing Support Assistant Name Role Phone Elsewhere, Pcp Primary Care Provider Unavailabl e Reason for Referral * Outpatient (Routine) - Closed Specialty Diagnoses / Procedures Referred By Radha ge Referred To Contact Hematology Oncology Arturo Aleman M.D. [address] [place] [address] [facility] Referral ID Status Reason Start Date Expiration Date Visits Re quested Visits Authorized [id number] Closed 10/19/2022 10/18/2025 1 1 SERVICE DERRICK WORKER Reason for Visit * Outpatient (Routine) - Closed Specialty Diagnoses / Procedures Referred By Radha ge Referred To Contact Video Medicine Diagnoses Waldenstrom's Macroglobulinemia (HCC) Arturo Aleman M.D. [address] [place] [address] [facility] Referral ID Status Reason Start Date Expiration Date Visits Re quested Visits Authorized [id number] Closed 04/16/2022 04/16/2023 1 1 Encounter Details Date Type Department Care Team (Latest Contact Info) Description 10/19/2022 10:30 AM WELL SERVICE DERRICK WORKER Telemedicine Division of Hematology in [place], [place] [address] [place] [phone] Arturo Aleman M.D. [address] [place] [address] Waldenstrom's Macroglobulinemia (HCC) Social History Tobacco Use Types Packs/Day Years [...] any clubs o r organizations such as holiness groups, unions, fraternal [...] and heating? Not hard at all 10/12/2022 [facility] [place] of Occupat ional Health - Occupational Stress [...] as of this encounter Progress Notes * Arturo Aleman M.D. - 10/19/2022 10:30 AM CST SUBJECTIVE REASON FOR VISIT Waldentrom's macroglobulinemia Consult conducted via real-time audio/video technology by Soraya Ricks M.D. in [facility] to the patient in Patient's Home HISTORY OF PRESENT ILLNESS Patient is a 76 y.o. woman with Waldentrom's macroglobulinemia whose hematological history may be summarized as follows: 1. 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 [id number]: Treated with rituximab, intermittently, totaling 10 different [...] Waldentrom's macroglobulinemia. Last visit was on April 16, 2022. In June 2022 she had hemiparesis and was diagnosed with a stroke. She still has residual symptoms but had no further acute episodes. On my interview today she reports to [...] not fully examined. DIAGNOSTICS Mail-in labs from October 11, 2022 reviewed today. CBC with differential is within normal limits with exception of mild stable lymphopenia. Blood chemistry is unremarkable. LDH is normal. Special protein studies from the serum shows M spike of 0.8, stable from prior. ASSESSMENT / PLAN #1 Waldentrom's macroglobulinemia She continues to do well with no hematological manifestations of her disease. Special protein studies are stable. At this time she is maintaining a good response from her previous therapy and there is no indication for treatment at this time. Will continue to monitor with the next touch point in 6 months, [id number]. Follow-up: Return to clinic in 6 months [...] described above. Signed by: Soraya Ricks M.D. 10/19/2022 SERVICE DERRICK WORKER documented in this encounter Plan of Treatment Upcoming Encounters Date Type Department Care Team (Late st Contact Info) Description 10/18/2023 2:00 PM WELL SERVICE DERRICK WORKER Telemedicine Division of Hematology in [place], [place] [address] [place] [address] Arturo Aleman M.D. [address] [place] [address] Scheduled Referrals Name Type Priority Associated Diagnoses Order Schedule Hematology office visit (clinic) [place]; Lymphoma; General Outpatient Referral Routine Expected: 04/18/2023 (Approximate), Expires: 01/17/2024 documented as of this encounter Results * (ABNORMAL) LD (Lactate Dehydrogenase) (04/11/2023 1:01 PM CDT) Lactate Dehydrogenase (LD), S 224(H) 122 - 222 U/L 04/11/2023 1:56 PM CDT DTL Blood (Blood, Venous) 04/11/2023 1:01 PM CDT 04/11/2023 1:37 PM CDT Narrative Authorizing Provider Result Sammi Ricks M.D. LAB BLOOD NON ADD-ON [facility] [address] [place] [address], [facility] DTL [facility] [address] [place] [address] * (ABNORMAL) Immunoglobulins (IgG, IgA, and IgM) (04/11/2023 1:01 PM CDT) Immunoglobulin A (IgA), S 28(L) 61 - 356 mg/dL 04/12/2023 8:30 AM CDT [facility] Immunoglobulin M (IgM), S 1050(H) 37 - 286 mg/dL 04/12/2023 9:11 AM CDT [facility] Immunoglobulin G (IgG), S 341(L) 767 - 1590 mg/dL 04/12/2023 8:30 AM CDT [facility] Blood (Blood, Venous) 04/11/2023 1:01 PM CDT 04/12/2023 6:13 AM CDT Narrative Authorizing Provider Result Sammi Ricks M.D. LAB BLOOD ADD-ON Performing Organization Address City/[facility]/ZIP Co de Phone Number [facility] [address] [place] [address] [facility] [address] [place] [address] * Sodium (04/11/2023 1:01 PM CDT) Sodium, S 136 135 - 145 mmol/L 04/11/2023 1:56 PM CDT DTL Blood (Blood, Venous) 04/11/2023 1:01 PM CDT 04/11/2023 1:37 PM CDT Narrative Authorizing Provider Result Sammi Ricks M.D. LAB BLOOD ADD-ON [facility] [address] [place] [address], [facility] [address] [place] [address] * Potassium (04/11/2023 1:01 PM CDT) [facility] Potassium, S 4.0 3.6 - 5.2 mmol/L 04/11/2023 1:56 PM CDT DTL Blood (Blood, Venous) 04/11/2023 1:01 PM CDT 04/11/2023 1:37 PM CDT Arturo Ricks M.D. LAB BLOOD ADD-ON [facility] [address] [place] [address], [facility] [address] [place] [address] * (ABNORMAL) Monoclonal Gammopathy Diagnostic (04/11/2023 1:01 PM CDT) [facility] Therapeutic Antibody Administered? No 3 5:19 PM CDT [facility] Total Protein, S 6.7 6.3 - 7.9 g/dL 3 5:46 PM CDT [facility] [place] Free Light Chain, S 3.12(H) 0.3300 - 1.94 mg/dL 3 5:46 PM CDT [facility] Lambda Free Light Chain, S 0.4500(L) 0.5700 - 2.63 mg/dL 3 6:01 PM CDT [facility] [place]/Lambda FLC Ratio 6.93(H) 0.2600 - 1.65 3 6:01 PM CDT [facility] Albumin 3.5 3.4 - 4.7 g/dL 3 8:50 PM CDT [facility] Alpha-1 Globulin 0.3 0.1 - 0.3 g/dL 3 8:50 PM CDT [facility] Alpha-2 Globulin 1.0 0.6 - 1.0 g/dL 3 8:50 PM CDT [facility] Beta-Globulin 0.9 0.7 - 1.2 g/dL 3 8:50 PM CDT [facility] Gamma-Globulin 1.1 0.6 - 1.6 g/dL 3 8:50 PM CDT [facility] A/G Ratio 1.08 3 8:50 PM CDT [facility] M spike 0.8(H) g/dL 3 8:50 PM CDT [facility] Impression M-spike in gamma fraction. See Isotype. 8:50 PM CDT [facility] Flag, M-protein Isotype Positive(A) Negative 9:08 AM CDT [facility] M-protein Isotype MALDI-TOF MS IgM kappa, monoclonal. ~Suggest protein electrophoresis to follow patient rather than isotyping. 9:08 AM CDT [facility] Comment: ----ADDITIONAL INFORMATION---- The submitted sample was assayed by five separate immunopurifications for IgG, IgA, IgM, kappa and lambda. ??The result reflects the findings of either no monoclonal protein detected or those monoclonal immunoglobulins that were detected. This test was developed and its performance characteristics determined by [facility] in a manner consistent with CLIA requirements. This test has not been cleared or approved by the U.S. Food and Drug Administration. Blood (Blood, Venous) 04/11/2023 1:01 PM CDT 04/11/2023 5:18 PM CDT Narrative [facility] - 04/13/2023 9:08 AM CDT Specimen Information: Specimen ID: [id number] Specimen Type: Blood Specimen Collection Start Date: 04/11/2023 ??1:01 PM Specimen Received Date: 04/11/2023 ??5:18 PM Specimen ID: [id number] Specimen Type: Blood Specimen Collection Start Date: 04/11/2023 ??1:01 PM Specimen Received Date: 04/11/2023 ??5:19 PM Arturo Ricks M.D. LAB BLOOD ADD-ON [facility] [address] [place] [address] [facility] [address] [place] [address] [facility] [address] [place] [address] [place] [address] * Creatinine with Estimated GFR (04/11/2023 1:01 PM CDT) Pathologist [facility] Creatinine 0.62 0.59 - 1.04 mg/dL 04/11/2023 1:56 PM CDT DTL Estimated GFR (eGFR) >90 >=60 mL/min/BSA 04/11/2023 1:56 PM CDT [facility] Comment: Estimated GFR calculated using the 2020 CKD_EPI creatinine equation. Blood (Blood, Venous) 04/11/2023 1:01 PM CDT 04/11/2023 1:37 PM CDT Arturo Ricks M.D. LAB BLOOD ADD-ON [facility] [address] [place] [address], [facility] [address] [place] [address] * CBC no call back, reflex T/S HGB <8 (04/11/2023 1:01 PM CDT) Pathologist [facility] Hemoglobin 13.4 11.6 - 15.0 g/dL 04/11/2023 1:51 PM CDT [facility] Hematocrit 40.2 35.5 - 44.9 % 04/11/2023 1:51 PM CDT [facility] Erythrocytes 4.50 3.92 - 5.13 x10(12)/L 04/11/2023 1:51 PM CDT [facility] MCV 89.3 78.2 - 97.9 fL 04/11/2023 1:51 PM CDT [facility] RBC Distrib Width 13.1 12.2 - 16.1 % 04/11/2023 1:51 PM CDT [facility] Platelet Count 217 157 - 371 x10(9)/L 04/11/2023 1:51 PM CDT [facility] Leukocytes 3.9 3.4 - 9.6 x10(9)/L 04/11/2023 1:51 PM CDT [facility] Neutrophils 2.34 1.56 - 6.45 x10(9)/L 04/11/2023 1:51 PM CDT [facility] Lymphocytes 0.96 0.95 - 3.07 x10(9)/L 04/11/2023 1:51 PM CDT [facility] Monocytes 0.35 0.26 - 0.81 x10(9)/L 04/11/2023 1:51 PM CDT [facility] Eosinophils 0.20 0.03 - 0.48 x10(9)/L 04/11/2023 1:51 PM CDT [facility] Basophils <0.03 0.01 - 0.08 x10(9)/L 04/11/2023 1:51 PM CDT [facility] Blood (Blood, Venous) 04/11/2023 1:01 PM CDT 04/11/2023 1:23 PM CDT Arturo Ricks M.D. LAB BLOOD NON ADD-ON [facility] [address] [place] [address], [facility] DHPM [facility] [address] [place] [address] * Calcium, Total (04/11/2023 1:01 PM CDT) Calcium, Total, S 9.5 8.8 - 10.2 mg/dL 04/11/2023 1:56 PM CDT DTL Blood (Blood, Venous) 04/11/2023 1:01 PM CDT 04/11/2023 1:37 PM CDT Arturo Ricks M.D. LAB BLOOD ADD-ON [facility] [address] [place] [address], [facility] DTL [facility] [address] [place] [address] * AST (Aspartate Aminotransferase) (04/11/2023 1:01 PM CDT) Pathologist [facility] Aspartate Aminotransferase (AST), S 21 8 - 43 U/L 04/11/2023 1:56 PM CDT DT Blood (Blood, Venous) 04/11/2023 1:01 PM CDT 04/11/2023 1:37 PM CDT Arturo Ricks M.D. LAB BLOOD ADD-ON Performing Organization Address City/[facility]/ZIP Co de Phone Number [facility] [address] [place] [address], [facility] [address] [place] [address] * Alkaline Phosphatase (04/11/2023 1:01 PM CDT) [facility] Alkaline Phosphatase, S 61 35 - 104 U/L 04/11/2023 1:56 PM CDT DT Blood (Blood, Venous) 04/11/2023 1:01 PM CDT 04/11/2023 1:37 PM CDT Arturo Ricks M.D. LAB BLOOD ADD-ON Performing Organization Address City/[facility] Co de Phone Number [facility] [address] [place] [address], [facility] [address] [place] [address] * Viscosity (04/11/2023 1:00 PM CDT) [facility] Viscosity, S 1.1 <=1.5 cpoise 04/12/2023 12:06 PM CDT [facility] Comment: ----ADDITIONAL INFORMATION---- This test has been modified from the assistant professor in family studies's instructions. Its performance characteristics were determined by [facility] in a manner consistent with CLIA requirements. This test has not been cleared or approved by the U.S. Food and Drug Administration. Blood (Blood, Venous) 04/11/2023 1:00 PM CDT 04/12/2023 7:10 AM CDT Arturo Ricks M.D. LAB BLOOD NON ADD-ON [facility] [address] [place] [address] [facility] [address] [place] [address] documented in this encounter Visit Diagnoses Diagnosis Waldenstrom's Macroglobulinemia (HCC) Waldenstrom's Macroglobulinemia (HCC) documented in this encounter Care Teams Marketing Support Assistant Relationship Specialty Start Date End Date Elsewhere, Pcp PCP - General Internal Medicine 08/09/22 documented as of this encounter
--- OUTSIDE RECORDS SUMMARY | 2023-10-12 06:34 | XMS_ITS | Encounter Summary ---
Author Name Unknown Organization [facility] Address [address] [place] [address] Care Team Providers Care Marriage Performer Name Role Phone Elsewhere, Pcp Primary Care Provider Unavailabl e Encounter Details Date Type Department Care Team (Late st Contact Info) Description 04/11/2023 Episode Changes Department of Ophthalmology in [place], [place] [address] [place] [address] Suzette Lemos Social History Tobacco Use Types Packs/Day Years [...] often do you attend chur ch or congregation services? More than 4 times per year 10/12/2022 Do you belong to any clubs o r organizations such as shinto groups, unions, fraternal [...] and heating? Not hard at all 10/12/[address] [facility] [place] of Occupat ional Health - Occupational Stress [...] st Contact Info) Description 10/18/2023 2:00 PM SMART GRID ENGINEER Telemedicine Division of Hematology in [place], [place] [address] [place] [address] Arturo Aleman M.D. [address] [place] [address] documented as of this encounter Visit Diagnoses Not on filedocumented in this encounter Care Teams Marriage Performer Relationship Specialty Start Date End Date Elsewhere, Pcp PCP - General Internal Medicine 08/09/22 documented as of this encounter
--- OUTSIDE RECORDS SUMMARY | 2023-10-12 06:34 | XMS_ITS | Encounter Summary ---
Author Name Unknown Organization [facility] Address [address] [place] [address] Care Team Providers Care Rn Embedded Name Role Phone Elsewhere, Pcp Primary Care Provider Unavailabl e Encounter Details Date Type Department Care Team (Late st Contact Info) Description 04/11/2023 9:25 AM CDT Ancillary Procedure Department of Ophthalmology [...] often do you attend chur ch or oriental orthodox services? More than 4 times per year 10/12/2022 Do you belong to any clubs o r organizations such as muslim groups, unions, fraternal [...] and heating? Not hard at all 10/12/2022 [facility] of Occupat ional Health - [...] or slept in a jail (including now)? No 10/12/2022 Nutrition Answer Date [...] st Contact Info) Description 10/18/2023 2:00 PM BODY CLEANER Telemedicine Division of Hematology in [place], [place] [address] [place] [address] Arturo Aleman M.D. [address] [place] [address] documented as of this encounter Procedures Procedure Name Priority Date/Time Associated Diagnosis Comments OPHTHALMOLOGY IMAGE EXAM Routine 04/11/2023 9:25 AM CDT documented in this encounter Results * Visual Schaffer (VF)-Ophthalmology Image Exam (04/11/2023 9:25 AM CDT) 04/11/2023 9:24 AM CDT Narrative [facility] - 04/11/2023 9:50 AM CDT This order has been created and auto-finalized to support the import of images acquired without order. The clinical documentation to support these images can be found on the encounter that produced images. Provider Not In System IMG NON RAD IMAGI NG PROCEDURES [facility] NA documented in this encounter Visit Diagnoses Not on filedocumented in this encounter Care Teams Rn Embedded Relationship Specialty Start Date End Date Elsewhere, Pcp PCP - General Internal Medicine 08/09/22 documented as of this encounter
--- OUTSIDE RECORDS SUMMARY | 2023-10-12 06:34 | XMS_ITS | Encounter Summary ---
Author Name Unknown Organization [facility] Address [address] [place] [address] Care Team Providers Care Cabin Crew Name Role Phone Elsewhere, Pcp Primary Care Provider Unavailabl e Encounter Details Date Type Department Care Team (Latest Contact Info) Description 04/08/2023 3:00 PM CDT Clinical Communication Virtual Review in [place], [place] [address] [place], [place] [id number] Social History Tobacco Use Types Packs/Day Years [...] often do you attend chur ch or holiness services? More than 4 times per year 10/12/2022 Do you belong to any clubs o r organizations such as yazidi groups, unions, fraternal [...] and heating? Not hard at all 10/12/2022 [facility] of Occupat ional Health - Occupational [...] st Contact Info) Description 10/18/2023 2:00 PM HISTORICAL RECORDS ADMINISTRATOR Telemedicine Division of Hematology in [place], [place] [address] [place] [address] Arturo Aleman M.D. [address] [place] [address] documented as of this encounter Visit Diagnoses Not on filedocumented in this encounter Care Teams Cabin Crew Relationship Specialty Start Date End Date Elsewhere, Pcp PCP - General Internal Medicine 08/09/22 documented as of this encounter
--- OUTSIDE RECORDS SUMMARY | 2023-10-12 06:34 | XMS_ITS | Encounter Summary ---
Author Name Unknown Organization [facility] Address [address] [place] [address] Care Team Providers Care Picture Booker Name Role Phone Elsewhere, Pcp Primary Care Provider Unavailabl e Encounter Details Date Type Department Care Team (Late st Contact Info) Description 06/26/2015 Historical Ophthalmology RST OPH Arron Patricio M.D. [address] [place] [address] Social History Tobacco Use Types Packs/Day Years Used Date Smoking Tobacco: Never Assessed Sex and Gender Information Value Date Recorded Sex Assigned at Female 03/05/2018 7:34 PM CDT Gender Identity Female 03/05/2018 7:34 PM CDT Sexual Orientation Straight 03/05/2018 7: 34 PM CDT documented as of this encounter Progress Notes * Arron Patricio M.D. - 06/26/2015 9:12 AM CST Eye General CHIEF COMPLAINT Decreased vision HISTORY OF PRESENT ILLNESS Vision left eye fluctuates. Eyes don't work well together since October. History of subconjunctival lymphoma, left eye. Occasional monocular shadowing left eye. 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 Cameron today. The lesion is more obvious than previous. Consider intralesional (?rituximab) treatment if isolated to eye, versus systemic treatment per Dr. Cameorn. See back in 6 months, unless wants to proceed with intralesional treatment. #[address] Waldenstrom [address] Cameron. #3 Pseudophakia, left eye Stable #4 Cataract, right eye She is seeing well. Observe. DIAGNOSIS #1 Subconjunctival lymphoma, left eye #2 Waldenstrom macroglobulinemia #3 Pseudophakia, left eye #4 Cataract, right eye CDM Reports - EYEGEN Id: [id number] Status: Fnl documented in this encounter Plan of Treatment Upcoming Encounters Date Type Department Care Team (Late st Contact Info) Description 10/18/2023 2:00 PM MEAL COOK Telemedicine Division of Hematology in [place], [place] [address] [place] [address] Arturo Aleman M.D. [address] [place] [address] documented as of this encounter Visit Diagnoses Not on filedocumented in this encounter Care Teams Picture Booker Relationship Specialty Start Date End Date Elsewhere, Pcp PCP - General Internal Medicine 08/09/22 documented as of this encounter
--- OUTSIDE RECORDS SUMMARY | 2023-10-12 06:34 | XMS_ITS | Encounter Summary ---
Author Name Unknown Organization [facility] Address [address] [place] [address] Care Team Providers Care Blue Leather Sorter Name Role Phone Elsewhere, Pcp Primary Care Provider Unavailabl e Encounter Details Date Type Department Care Team (Latest Contact Info) Description 04/11/2023 9:50 AM CDT - 04/11/2023 11:59 PM CDT Hospital Encounter Department of Laboratory Medicine and Pathology, [facility] in [place], [place] [address] [place] [address] Arturo Aleman M.D. [address] [place] [address] Waldenstrom's Macroglobulinemia (HCC) Discharge Disposition: Home or [...] How often do you attend chur or scientology services? More than 4 times per year [...] and heating? Not hard at all 10/12/2022 [facility] Occupat ional Health - [...] the money to buy more. Never true 02/21/20 23 Within the past 12 months, t [...] 2 capsules by mouth daily. [employer] by [employer] 0 12/07/2016 TURMERIC ROOT EXTRACT ORAL Take 1 tablet by mouth as needed. 0 04/26/2017 vit A and D3 in cod liver oiL 1,250-135 unit capsule daily. 0 documented as of this encounter Plan of Treatment Upcoming Encounters Date Type Department Care Team (Late st Contact Info) Description 10/18/2023 2:00 PM NEWSPAPER COPY EDITOR Telemedicine Division of Hematology in [place], [place] [address] [place] [address] Arturo Aleman M.D. [address] [place] [address] documented as of this encounter Procedures Procedure Name Priority Date/Time Associated Diagnosis Comments MONOCLONAL GAMMOPATHY DIAGNOSTIC, S Routine 04/11/2023 1:01 PM CDT Waldenstrom's Macroglobulinemia (HCC) CBC NO CALL BACK, REFLEX T/S Routine 04/11/2023 1:01 PM CDT Waldenstrom's Macroglobulinemia (HCC) IMMUNOGLOBULINS (IGG, IGA, AND IGM), S Routine 04/11/2023 1:01 PM CDT Waldenstrom's Macroglobulinemia (HCC) ASPARTATE AMINOTRANSFERASE (AST), S/P Routine 04/11/2023 1:01 PM CDT Waldenstrom's Macroglobulinemia (HCC) SODIUM, S/P Routine 04/11/2023 1:01 PM CDT Waldenstrom's Macroglobulinemia (HCC) POTASSIUM, S/P Routine 04/11/2023 1:01 PM CDT Waldenstrom's Macroglobulinemia (HCC) ALKALINE PHOSPHATASE, S/P Routine 04/11/2023 1:01 PM CDT Waldenstrom's Macroglobulinemia (HCC) LACTATE DEHYDROGENASE (LD), S Routine 04/11/2023 1:01 PM CDT Waldenstrom's Macroglobulinemia (HCC) CREATININE WITH EGFR, S/P Routine 04/11/2023 1:01 PM CDT Waldenstrom's Macroglobulinemia (HCC) CALCIUM, TOT, S/P Routine 04/11/2023 1:0 1 PM CDT Waldenstrom's Macroglobulinemia (HCC) VISCOSITY, S Routine 04/11/2023 1:00 PM CDT Waldenstrom's Macroglobulinemia (HCC) documented in this encounter Results * (ABNORMAL) LD (Lactate Dehydrogenase) (04/11/2023 1:01 PM CDT) Lactate Dehydrogenase (LD), S 224(H) 122 - 222 U/L 04/11/2023 1:56 PM CDT DTL Blood (Blood, Venous) 04/11/2023 1:01 PM CDT 04/11/2023 1:37 PM CDT Arturo Ricks M.D. LAB BLOOD NON ADD-ON [facility] [address] [place] [address], [facility] [address] [place] [address] * (ABNORMAL) Immunoglobulins (IgG, IgA, and IgM) [...] 1:01 PM CDT 04/12/2023 6:13 AM CDT Arturo Ricks M.D. LAB BLOOD ADD-ON [facility] [address] [place] [address] [facility] [address] [place] [address] * Sodium (04/11/2023 1:01 PM CDT) Sodium, S 136 135 - 145 mmol/L 04/11/2023 1:56 PM CDT DTL Blood (Blood, Venous) 04/11/2023 1:01 PM CDT 04/11/2023 1:37 PM CDT Arturo Ricks M.D. LAB BLOOD ADD-ON [facility] [address] [place] [address], [facility] [address] [place] [address] * Potassium (04/11/2023 1:01 PM CDT) Pathologist [facility] Potassium, S 4.0 3.6 - 5.2 mmol/L 04/11/2023 1:56 PM CDT DTL Blood (Blood, Venous) 04/11/2023 1:01 PM CDT 04/11/2023 1:37 PM CDT Narrative Authorizing Provider Result Sammi Ricks M.D. LAB BLOOD ADD-ON [facility] [address] [place] [address], [facility] [address] [place] [address] * (ABNORMAL) Monoclonal Gammopathy Diagnostic (04/11/2023 1:01 PM CDT) [facility] Therapeutic Antibody Administered? No 3 5:19 PM CDT [facility] Total Protein, S 6.7 6.3 - 7.9 g/dL 3 5:46 PM CDT [facility] [place] Free Light Chain, S 3.12(H) 0.3300 - 1.94 mg/dL 3 5:46 PM CDT [facility] Lambda Free Light Chain, S 0.4500(L) 0.5700 - 2.63 mg/dL 3 6:01 PM CDT [facility] [place]/Lambda FLC Ratio 6.93(H) 0.2600 - 1.65 3 [...] Impression M-spike in gamma fraction. See Isotype. 3 8:50 PM CDT [facility] Flag, M-protein Isotype Positive(A) Negative 3 9:08 AM CDT [facility] M-protein Isotype MALDI-TOF MS IgM kappa, monoclonal. ~Suggest protein electrophoresis to follow patient rather than isotyping. 3 9:08 AM CDT [facility] Comment: ----ADDITIONAL INFORMATION---- The submitted sample was assayed by five separate immunopurifications for IgG, IgA, IgM, kappa and lambda. ??The result reflects the findings of either no monoclonal protein detected or those monoclonal immunoglobulins that were detected. This test was developed and its performance characteristics determined by [facility] in a manner consistent with CLIA requirements. This test has not been cleared or approved by the U.S. Food and Drug Administration. Blood (Blood, Venous) 04/11/2023 1:01 PM CDT 04/11/2023 5:18 PM CDT Narrative [facility] - 04/13/2023 9:08 AM CDT Specimen Information: Specimen ID: [id number] Specimen Type: Blood Specimen Collection Start Date: 04/11/2023 ??1:01 PM Specimen Received Date: 04/11/2023 ??5:18 PM Specimen ID: [id number] Specimen Type: Blood Specimen Collection Start Date: 04/11/2023 ??1:01 PM Specimen Received Date: 04/11/2023 ??5:19 PM Arturo Ricks M.D. LAB BLOOD ADD-ON [facility] [address] [place] [address] [facility] [address] [place], [place] [phone] [place] [address] [address] [facility] [address] [place] [address] * Creatinine with Estimated GFR (04/11/2023 1:01 PM CDT) Creatinine 0.62 0.59 - 1.04 mg/dL 04/11/2023 1:56 PM CDT DTL Estimated GFR (eGFR) >90 >=60 mL/min/BSA 04/11/2023 1:56 PM CDT DTL Comment: Estimated GFR calculated using the 2020 CKD_EPI creatinine equation. Blood (Blood, Venous) 04/11/2023 1:01 PM CDT 04/11/2023 1:37 PM CDT Arturo Ricks M.D. LAB BLOOD ADD-ON [facility] [address] [place] [address], [facility] DTL [facility] [place] [address] [place] [address] * CBC no call back, reflex T/S HGB <8 (04/11/2023 1:01 PM CDT) Hemoglobin 13.4 11.6 - 15.0 g/dL 04/11/2023 [...] Arturo Ricks M.D. LAB BLOOD NON ADD-ON [facility] [address] [place] [address], [facility] [address] [place] [address] * Calcium, Total (04/11/2023 1:01 PM CDT) Calcium, Total, S 9.5 8.8 - 10.2 mg/dL 04/11/2023 1:56 PM CDT DTL Blood (Blood, Venous) 04/11/2023 1:01 PM CDT 04/11/2023 1:37 PM CDT Arturo Ricks M.D. LAB BLOOD ADD-ON [facility] [address] [place], [place] [phone] [place] [address] [address] [place] [address] * AST (Aspartate Aminotransferase) (04/11/2023 1:01 PM CDT) Aspartate Aminotransferase (AST), S 21 8 - 43 U/L 04/11/2023 1:56 PM CDT DTL Blood (Blood, Venous) 04/11/2023 1:01 PM CDT 04/11/2023 1:37 PM CDT Arturo Ricks M.D. LAB BLOOD ADD-ON [facility] [address] [place], [place] [phone] [place] [address] [address] [place] [address] * Alkaline Phosphatase (04/11/2023 1:01 PM CDT) Alkaline Phosphatase, S 61 35 - 104 U/L 04/11/2023 1:56 PM CDT DTL Blood (Blood, Venous) 04/11/2023 1:01 PM CDT 04/11/2023 1:37 PM CDT Arturo Ricks M.D. LAB BLOOD ADD-ON Performing Organization Address City/[facility] Co de Phone Number [facility] [address] [place] [address], [place] DTL [facility] [address] [place] [address] * Viscosity (04/11/2023 1:00 PM CDT) Viscosity, S 1.1 <=1.5 cpoise 04/12/2023 12:06 PM CDT [facility] Comment: ----ADDITIONAL INFORMATION---- This test has been modified from the c.o.d. audit clerk's instructions. Its performance characteristics were determined by [facility] in a manner consistent with CLIA requirements. This test has not been cleared or approved by the U.S. Food and Drug Administration. Blood (Blood, Venous) 04/11/2023 1:00 PM CDT 04/12/2023 7:10 AM CDT Arturo Ricks M.D. LAB BLOOD NON ADD-ON Performing Organization Address City/State/[facility] Co de Phone Number [facility] [address] [place] [address] [facility] [address] [place] [address] documented in this encounter Visit Diagnoses Diagnosis Waldenstrom's Macroglobulinemia (HCC) documented in this encounter Care Teams Blue Leather Sorter Relationship Specialty Start Date End Date Elsewhere, Pcp PCP - General Internal Medicine 08/09/22 documented as of this encounter
--- OUTSIDE RECORDS SUMMARY | 2023-10-12 06:34 | XMS_ITS | Encounter Summary ---
Author Name Unknown Organization [facility] Address [address] [place] [address] Care Team Providers Care Wine Blender Name Role Phone Elsewhere, Pcp Primary Care Provider Unavailabl e Encounter Details Date Type Department Care Team (Latest Contact Info) Description 04/11/2023 11:30 AM CDT Ancillary Procedure Department of Ophthalmology in [place], [place] [address] [place] [address] Elana Fitch M.D. [address] [place] [phone] Hemianopsia Homonymous Left Social History Tobacco Use [...] any clubs o r organizations such as baptism groups, unions, fraternal or athletic groups, or [...] Not hard at all 10/12/2022 [facility] of Occupat ional Health - Occupational Stress [...] st Contact Info) Description 10/18/2023 2:00 PM TAILINGS DAM LABORER Telemedicine Division of Hematology in [place], [place] [address] [place] [address] Arturo Aleman M.D. [address] [place] [address] documented as of this encounter Procedures Procedure Name Priority Date/Time Associated Diagnosis Comments OPTICAL COHERENCE TOMOGRAPHY (OCT) - OPTIC NERVE - OU - BOTH EYES Routine 04/11/2023 12:18 PM CDT Hemianopsia Homonymous Left documented in this encounter Results * Optical Coherence Tomography - Optic Nerve - OU - Both Eyes (04/11/2023 12:18 PM CDT) Narrative OPHTHALMOLOGY IMAGING EXAM - 04/11/2023 4:56 PM CDT OCT device used was [employer] . Right Eye Reliability was good. Average RNFL was 78.00 microns. Ganglion cell layer was 66.00 microns. Left Eye Reliability was good. Average RNFL was 74.00 microns. Ganglion cell layer was 64.00 microns. Notes SMG See note. Elana Fitch M.D. OPHTH TOMOGRAPHY OPHTHALMOLOGY IMAGING EXAM documented in this encounter Visit Diagnoses Diagnosis Hemianopsia Homonymous Left documented in this encounter Care Teams Wine Blender Relationship Specialty Start Date End Date Elsewhere, Pcp PCP - General Internal Medicine 08/09/22 documented as of this encounter
--- OUTSIDE RECORDS SUMMARY | 2023-10-12 06:34 | XMS_ITS | Encounter Summary ---
Author Name Unknown Organization [facility] Address [address] [place] [address] Care Team Providers Care Delivery Of Shopping News Name Role Phone Elsewhere, Pcp Primary Care Provider Unavailabl e Reason for Visit * Reason Onset Date Comments MRI question 09/30/2022 Encounter Details Date Type Department Care Team (Late st Contact Info) Description 09/30/2022 Clinical Communication Department of Neurology in [place], [place] [address] [place] [phone] Olga Sol M.D., Ph.D. [address] [place] [phone] MRI question Social History Tobacco Use Types Packs/Day Years [...] How often do you attend chur or anabaptism services? More than 4 times per year 10/12/2022 Do you belong to any clubs o r organizations such as buddhist groups, unions, fraternal [...] heating? Not hard at all 10/12/2022 [facility] of Occupat ional Health - Occupational [...] encounter Miscellaneous Notes * Addendum Note - Lilli Beck M.S., R.N. - 12/09/2022 2:12 PM CDTAddended by: LILLI BECK on: 12/09/2022 02:12 PM Modules accepted: Orders * Telephone Encounter - Lilli Beck M.S., R.N. - 12/09/2022 2:11 PM CDT Information Discussed I spoke with Mrs. Meyer about Dr. Sol's recommendations. She understands, and will reach out to her local primary care provider if she feels like she needs to have an MRI completed. PLAN Disposition/Recommendation: self-care is appropriate at this time, patient encouraged to call back with questions Information/Education: patient/caller able to teach back Caller agreeable to plan of care: yes The following references were used: provider Dr. Sol * Addendum Note - April Grady - 12/06/2022 2:09 PM CDTAddended by: APRIL GRADY on: 12/06/2022 02:09 PM Modules accepted: Orders documented in this encounter Plan of Treatment Upcoming Encounters Date Type Department Care Team (Late st Contact Info) Description 10/18/2023 2:00 PM DRIVER RECRUITER Telemedicine Division of Hematology in [place], [place] [address] [place] [address] Arturo Aleman M.D. [address] [place] [address] documented as of this encounter Visit Diagnoses Diagnosis Paresthesia- Primary documented in this encounter Care Teams Delivery Of Shopping News Relationship Specialty Start Date End Date Elsewhere, Pcp PCP - General Internal Medicine 08/09/22 documented as of this encounter
--- OUTSIDE RECORDS SUMMARY | 2023-10-12 06:34 | XMS_ITS | Encounter Summary ---
Author Name Unknown Organization [facility] Address [address] [place] [address] Care Team Providers Care Conventions Reservationist Name Role Phone Elsewhere, Pcp Primary Care Provider Unavailabl e Reason for Visit * Reason Onset Date Comments Questions for maico Carrington 01/26/2023 Encounter Details Date Type Department Care Team (Latest Contact Info) Description 01/26/2023 Clinical Communication Division of Hematology in [place], [place] [address] [place] [address] Arturo Aleman M.D. [address] [place] [phone] Questions for the Social History Tobacco Use Types Packs/Day Years [...] How often do you attend chur or sabianism services? More than 4 times per year 10/12/2022 Do you belong to any clubs o r organizations such as adventist groups, unions, fraternal [...] st Contact Info) Description 10/18/2023 2:00 PM REMOTE INPATIENT CODER Telemedicine Division of Hematology in [place], [place] [address] [place] [address] Arturo Aleman M.D. [address] [place] [address] documented as of this encounter Visit Diagnoses Not on filedocumented in this encounter Care Teams Conventions Reservationist Relationship Specialty Start Date End Date Elsewhere, Pcp PCP - General Internal Medicine 08/09/22 documented as of this encounter
--- OUTSIDE RECORDS SUMMARY | 2023-10-12 06:34 | XMS_ITS | Encounter Summary ---
Author Name Unknown Organization [facility] Address [address] [place] [address] Care Team Providers Care Farm Management Supervisor Name Role Phone Elsewhere, Pcp Primary Care Provider Unavailabl e Encounter Details Date Type Department Care Team (Late st Contact Info) Description 05/16/2017 Historical Ophthalmology RST OPH Arron Patricio M.D. [address] [place] [address] Social History Tobacco Use Types Packs/Day Years Used Date Smoking Tobacco: Never Assessed Sex and Gender Information Value Date Recorded Sex Assigned at Female 03/05/2018 7:34 PM CDT Gender Identity Female 03/05/2018 7:34 PM CDT Sexual Orientation Straight 03/05/2018 7: 34 PM CDT documented as of this encounter Progress Notes * Arron Patricio M.D. - 05/16/2017 1:23 PM CDT Eye General CHIEF COMPLAINT Follow-up left eye lymphoma HISTORY OF PRESENT ILLNESS chemo from October to March; thinks the lymphoma is decreased but still present. Eyelid droop has gotten better, but still drooping more than her right. Vision has not changed, fluctuates throughout the day. IMPRESSION / REPORT / PLAN The following [...] right eye CDM Reports - EYEGEN Id: [id number] Status: Fnl documented in this encounter Plan of Treatment Upcoming Encounters Date Type Department Care Team (Late st Contact Info) Description 10/18/2023 2:00 PM PROGRAM DEVELOPER Telemedicine Division of Hematology in [place], [place] [address] [place] [address] Arturo Aleman M.D. [address] [place] [address] documented as of this encounter Visit Diagnoses Not on filedocumented in this encounter Care Teams Farm Management Supervisor Relationship Specialty Start Date End Date Elsewhere, Pcp PCP - General Internal Medicine 08/09/22 documented as of this encounter
--- OUTSIDE RECORDS SUMMARY | 2023-10-12 06:35 | XMS_ITS | Encounter Summary ---
Author Name Unknown Organization [facility] Address [address] [place] [address] Care Team Providers Care Psychiatric Tech Name Role Phone Elsewhere, Pcp Primary Care Provider Unavailabl e Encounter Details Date Type Department Care Team (Late st Contact Info) Description 04/15/2014 Historical Ophthalmology RST OPH Arron Patricio M.D. [address] [place] [address] Social History Tobacco Use Types Packs/Day Years Used Date Smoking Tobacco: Never Assessed Sex and Gender Information Value Date Recorded Sex Assigned at Female 03/05/2018 7:34 PM CDT Gender Identity Female 03/05/2018 7:34 PM CDT Sexual Orientation Straight 03/05/2018 7: 34 PM CDT documented as of this encounter Progress Notes * Arron Patricio M.D. - 04/15/2014 1:33 PM CDT Eye General CHIEF COMPLAINT Subconjunctival lymphoma, left eye, recheck HISTORY OF PRESENT ILLNESS Blurred vision; left eye; x 9 months; slowly progressive; symptoms are moderate. Feels the eye gets more tired when on the computer. Reading has gotten more difficult. Is not noting an increase in glare or halos. IMPRESSION / [...] left>right eye CDM Reports - EYEGEN Id: [id number] Status: Fnl documented in this encounter Plan of Treatment Upcoming Encounters Date Type Department Care Team (Late st Contact Info) Description 10/18/2023 2:00 PM SWIM COACH Telemedicine Division of Hematology in [place], [place] [address] [place] [address] Arturo Aleman M.D. [address] [place] [address] documented as of this encounter Visit Diagnoses Not on filedocumented in this encounter Care Teams Psychiatric Tech Relationship Specialty Start Date End Date Elsewhere, Pcp PCP - General Internal Medicine 08/09/22 documented as of this encounter
--- OUTSIDE RECORDS SUMMARY | 2023-10-12 06:35 | XMS_ITS | Encounter Summary ---
Author Name Unknown Organization [facility] Address [address] [place] [address] Care Team Providers Care Ski Binding Fitter And Repairer Name Role Phone Elsewhere, Pcp Primary Care Provider Unavailabl e Encounter Details Date Type Department Care Team (Late st Contact Info) Description 10/28/2011 Historical Ophthalmology RST OPH Arron Patricio M.D. [address] [place] [address] Social History Tobacco Use Types Packs/Day Years Used Date Smoking Tobacco: Never Assessed Sex and Gender Information Value Date Recorded Sex Assigned at Female 03/05/2018 7:34 PM CDT Gender Identity Female 03/05/2018 7:34 PM CDT Sexual Orientation Straight 03/05/2018 7: 34 PM CDT documented as of this encounter Progress Notes * Arron Patricio M.D. - 10/28/2011 8:51 AM [...] Waldenstrom macroglobulinemia CDM Reports - EYEGEN Id: [id number] Status: Fnl documented in this encounter Plan of Treatment Upcoming Encounters Date Type Department Care Team (Late st Contact Info) Description 10/18/2023 2:00 PM ANTHROPOLOGY PROFESSOR Telemedicine Division of Hematology in [place], [place] [address] [place] [phone] Arturo Aleman M.D. [address] [place] [address] documented as of this encounter Visit Diagnoses Not on filedocumented in this encounter Care Teams Ski Binding Fitter And Repairer Relationship Specialty Start Date End Date Elsewhere, Pcp PCP - General Internal Medicine 08/09/22 documented as of this encounter
--- OUTSIDE RECORDS SUMMARY | 2023-10-12 06:35 | XMS_ITS | Encounter Summary ---
Author Name Unknown Organization [facility] Address [address] [place] [address] Care Team Providers Care Welder Apprentice Name Role Phone Elsewhere, Pcp Primary Care Provider Unavailabl e Encounter Details Date Type Department Care Team (Late st Contact Info) Description 09/14/2012 Historical Ophthalmology RST OPH Arron Patricio M.D. [address] [place] [address] Social History Tobacco Use Types Packs/Day Years Used Date Smoking Tobacco: Never Assessed Sex and Gender Information Value Date Recorded Sex Assigned at Female 03/05/2018 7:34 PM CDT Gender Identity Female 03/05/2018 7:34 PM CDT Sexual Orientation Straight 03/05/2018 7: 34 PM CDT documented as of this encounter Progress Notes * Arron Patricio M.D. - 09/14/2012 8:49 AM [...] between repeat biopsy (to determine if residual diseasepresent) versus empiric radiation. ?role of perilesional rituximab? Photo Interpretation: Photos confirm and document clinical findings of today. Suggest increased salmon appearance compared to May 2012. #[address] Cameron DIAGNOSIS #1 Subconjunctival lymphoma, left eye #2 Waldenstrom macroglobulinemia CDM Reports - [facility] Id: [id number] Status: Fnl documented in this encounter Plan of Treatment Upcoming Encounters Date Type Department Care Team (Late st Contact Info) Description 10/18/2023 2:00 PM USPS LETTER CARRIER Telemedicine Division of Hematology in [place], [place] [address] [place] [address] Arturo Aleman M.D. [address] [place] [address] documented as of this encounter Visit Diagnoses Not on filedocumented in this encounter Care Teams Welder Apprentice Relationship Specialty Start Date End Date Elsewhere, Pcp PCP - General Internal Medicine 08/09/22 documented as of this encounter
--- OUTSIDE RECORDS SUMMARY | 2023-10-12 06:35 | XMS_ITS | Encounter Summary ---
Author Name Unknown Organization [facility] Address [address] [place] [address] Care Team Providers Care Human Performance Professor Name Role Phone Elsewhere, Pcp Primary Care Provider Unavailabl e Encounter Details Date Type Department Care Team (Late st Contact Info) Description 10/24/2014 Historical Ophthalmology RST OPH Arron Patricio M.D. [address] [place] [address] Social History Tobacco Use Types Packs/Day Years Used Date Smoking Tobacco: Never Assessed Sex and Gender Information Value Date Recorded Sex Assigned at Female 03/05/2018 7:34 PM CDT Gender Identity Female 03/05/2018 7:34 PM CDT Sexual Orientation Straight 03/05/2018 7: 34 PM CDT documented as of this encounter Progress Notes * Arron Patricio M.D. - 10/24/2014 7:02 AM [...] day. , Call if decreased vision, increased photophobia,pain, discharge or increased redness occurs., Instruction pamphlet given, Care following cataract surgery ( 2153-73) Follow-up in 3-4 weeks. DIAGNOSIS #1 Subconjunctival lymphoma, left eye #2 Waldenstrom macroglobulinemia #3 s/p Cataract surgery with intraocular lens implant, left eye. CDM Reports - [facility] Id: [id number] Status: Fnl documented in this encounter Plan of Treatment Upcoming Encounters Date Type Department Care Team (Late st Contact Info) Description 10/18/2023 2:00 PM DISCHARGE DOOR OPERATOR Telemedicine Division of Hematology in [place], [place] [address] [place] [address] Arturo Aleman M.D. [address] [place] [address] documented as of this encounter Visit Diagnoses Not on filedocumented in this encounter Care Teams Human Performance Professor Relationship Specialty Start Date End Date Elsewhere, Pcp PCP - General Internal Medicine 08/09/22 documented as of this encounter
--- OUTSIDE RECORDS SUMMARY | 2023-10-12 06:35 | XMS_ITS | Encounter Summary ---
Author Name Unknown Organization [facility] Address [address] [place] [address] Care Team Providers Care Sweatband Perforator Name Role Phone Elsewhere, Pcp Primary Care Provider Unavailabl e Encounter Details Date Type Department Care Team (Late st Contact Info) Description 10/07/2011 Historical Ophthalmology RST OPH Arron Patricio M.D. [address] [place] [address] Social History Tobacco Use Types Packs/Day Years Used Date Smoking Tobacco: Never Assessed Sex and Gender Information Value Date Recorded Sex Assigned at Female 03/05/2018 7:34 PM CDT Gender Identity Female 03/05/2018 7:34 PM CDT Sexual Orientation Straight 03/05/2018 7: 34 PM CDT documented as of this encounter Progress Notes * Arron Patricio M.D. - 10/07/2011 8:38 AM [...] pressure and swelling sensation in left eye especially when working at computer. Old floaters unchanged; no flashes or diplopia. IMPRESSION / REPORT / PLAN Consult requested by: Jhonatan [id number] #1 Subconjunctival mass, less eye Etiology uncertain. [...] of solid lymphoplasmoid tumors associated with Waldenstrom. Discussed with patient and indicated that we should proceed to biopsy. She agrees. MAC. Consent on day of surgery. DIAGNOSIS #1 Subconjunctival mass, less eye #2 Waldenstrom macroglobulinemia CDM [facility] - [facility] Id: [id number] Status: Fnl documented in this encounter Plan of Treatment Upcoming Encounters Date Type Department Care Team (Late st Contact Info) Description 10/18/2023 2:00 PM FABRICATION INSPECTOR Telemedicine Division of Hematology in [place], [place] [address] [place] [address] Arturo Aleman M.D. [address] [place] [address] documented as of this encounter Visit Diagnoses Not on filedocumented in this encounter Care Teams Sweatband Perforator Relationship Specialty Start Date End Date Elsewhere, Pcp PCP - General Internal Medicine 08/09/22 documented as of this encounter
--- OUTSIDE RECORDS SUMMARY | 2023-10-12 06:35 | XMS_ITS | Encounter Summary ---
Author Name Unknown Organization [facility] Address [address] [place] [address] Care Team Providers Care Diet Aid Name Role Phone Elsewhere, Pcp Primary Care Provider Unavailabl e Encounter Details Date Type Department Care Team (Late st Contact Info) Description 10/16/2014 Historical Ophthalmology RST OPH Arron Patricio M.D. [address] [place] [address] Social History Tobacco Use Types Packs/Day Years Used Date Smoking Tobacco: Never Assessed Sex and Gender Information Value Date Recorded Sex Assigned at Female 03/05/2018 7:34 PM CDT Gender Identity Female 03/05/2018 7:34 PM CDT Sexual Orientation Straight 03/05/2018 7: 34 PM CDT documented as of this encounter Progress Notes * Arron Patricio M.D. - 10/16/2014 9:17 AM [...] and the necessity of other members of thehealthcare team participating in the procedure with the patient (or legal labor relations representative and otherspresent during the discussion). The patient understands. All questions answered and consent given. #[address] Cameron. #3 Cataract, left>right eye Visually significant Plan: Cataract surgery, left eye The alternatives to cataract surgery were discussed in detail with the patient (or legal labor relations representative and others present during the discussion). The risks, goals, advanced directives, alternatives and potential complications of surgery were discussed. Also discussed the necessity of other membersof the surgical team participating in the interventional procedure. Patient verbalizes understanding and wishes to proceed with cataract surgery and probable intraocular lens implantation left eye (OS) at the present time. This is a reasonable course. Will aim for -2.00 diopters. Will proceed underlocal anesthesia. Get IOL measurements both eyes (OU). DIAGNOSIS #1 Subconjunctival lymphoma, left eye #2 Waldenstrom macroglobulinemia #3 Cataract, left>right eye CDM Reports - [facility] Id: [id number] Status: Fnl documented in this encounter Plan of Treatment Upcoming Encounters Date Type Department Care Team (Late st Contact Info) Description 10/18/2023 2:00 PM RETIREMENT PLAN SPECIALIST Telemedicine Division of Hematology in [place], [place] [address] [place] [address] Arturo Aleman M.D. [address] [place] [address] documented as of this encounter Visit Diagnoses Not on filedocumented in this encounter Care Teams Diet Aid Relationship Specialty Start Date End Date Elsewhere, Pcp PCP - General Internal Medicine 08/09/22 documented as of this encounter
--- OUTSIDE RECORDS SUMMARY | 2023-10-12 06:35 | XMS_ITS | Encounter Summary ---
Author Name Unknown Organization [facility] Address [address] [place] [address] Care Team Providers Care Catering Administrative Assistant Name Role Phone Elsewhere, Pcp Primary Care Provider Unavailabl e Encounter Details Date Type Department Care Team (Late st Contact Info) Description 10/14/2011 Historical Ophthalmology RST OPH Arron Patricio M.D. [address] [place] [address] Social History Tobacco Use Types Packs/Day Years Used Date Smoking Tobacco: Never Assessed Sex and Gender Information Value Date Recorded Sex Assigned at Female 03/05/2018 7:34 PM CDT Gender Identity Female 03/05/2018 7:34 PM CDT Sexual Orientation Straight 03/05/2018 7: 34 PM CDT documented as of this encounter Progress Notes * Arron Patricio M.D. - 10/14/2011 8:28 AM [...] eye #2 Waldenstrom macroglobulinemia CDM Reports - [facility] Id: [id number] Status: Fnl documented in this encounter Plan of Treatment Upcoming Encounters Date Type Department Care Team (Late st Contact Info) Description 10/18/2023 2:00 PM ACQUISITION MARKETING COORDINATOR Telemedicine Division of Hematology in [place], [place] [address] [place] [address] Arturo Aleman M.D. [address] [place] [address] documented as of this encounter Visit Diagnoses Not on filedocumented in this encounter Care Teams Catering Administrative Assistant Relationship Specialty Start Date End Date Elsewhere, Pcp PCP - General Internal Medicine 08/09/22 documented as of this encounter
--- OUTSIDE RECORDS SUMMARY | 2023-10-12 06:35 | XMS_ITS | Encounter Summary ---
Author Name Unknown Organization [facility] Address [address] [place] [address] Care Team Providers Care Retail Shift Manager Name Role Phone Elsewhere, Pcp Primary Care Provider Unavailabl e Encounter Details Date Type Department Care Team (Late st Contact Info) Description 06/01/2012 Historical Ophthalmology RST OPH Arron Patricio M.D. [address] [place] [address] Social History Tobacco Use Types Packs/Day Years Used Date Smoking Tobacco: Never Assessed Sex and Gender Information Value Date Recorded Sex Assigned at Female 03/05/2018 7:34 PM CDT Gender Identity Female 03/05/2018 7:34 PM CDT Sexual Orientation Straight 03/05/2018 7: 34 PM CDT documented as of this encounter Progress Notes * Arron Patricio M.D. - 06/01/2012 9:09 AM [...] Waldenstrom macroglobulinemia CDM Reports - [facility] Id: [id number] Status: Fnl documented in this encounter Plan of Treatment Upcoming Encounters Date Type Department Care Team (Late st Contact Info) Description 10/18/2023 2:00 PM NURSE WOUND Telemedicine Division of Hematology in [place], [place] [address] [place] [address] Arturo Aleman M.D. [address] [place] [address] documented as of this encounter Visit Diagnoses Not on filedocumented in this encounter Care Teams Retail Shift Manager Relationship Specialty Start Date End Date Elsewhere, Pcp PCP - General Internal Medicine 08/09/22 documented as of this encounter
--- OUTSIDE RECORDS SUMMARY | 2023-10-12 06:35 | XMS_ITS | Encounter Summary ---
Author Name Unknown Organization [facility] Address [address] [place] [address] Care Team Providers Care Rail Walker Name Role Phone Elsewhere, Pcp Primary Care Provider Unavailabl e Encounter Details Date Type Department Care Team (Late st Contact Info) Description 11/14/2014 Historical Ophthalmology RST OPH Arron Patricio M.D. [address] [place] [address] Social History Tobacco Use Types Packs/Day Years Used Date Smoking Tobacco: Never Assessed Sex and Gender Information Value Date Recorded Sex Assigned at Female 03/05/2018 7:34 PM CDT Gender Identity Female 03/05/2018 7:34 PM CDT Sexual Orientation Straight 03/05/2018 7: 34 PM CDT documented as of this encounter Progress Notes * Arron Patricio M.D. - 11/14/2014 7:28 AM [...] left eye. CDM Reports - [facility] Id: [id number] Status: Fnl documented in this encounter Plan of Treatment Upcoming Encounters Date Type Department Care Team (Late st Contact Info) Description 10/18/2023 2:00 PM CIRCUIT JUDGE Telemedicine Division of Hematology in [place], [place] [address] [place] [address] Arturo Aleman M.D. [address] [place] [address] documented as of this encounter Visit Diagnoses Not on filedocumented in this encounter Care Teams Rail Walker Relationship Specialty Start Date End Date Elsewhere, Pcp PCP - General Internal Medicine 08/09/22 documented as of this encounter
--- OUTSIDE RECORDS SUMMARY | 2023-10-12 06:35 | XMS_ITS | Encounter Summary ---
Author Name Unknown Organization [facility] Address [address] [place] [address] Care Team Providers Care Fleshing Machine Operator Name Role Phone Elsewhere, Pcp Primary Care Provider Unavailabl e Encounter Details Date Type Department Care Team (Late st Contact Info) Description 01/10/2013 Historical Ophthalmology RST OPH Arron Patricio M.D. [address] [place] [address] Social History Tobacco Use Types Packs/Day Years Used Date Smoking Tobacco: Never Assessed Sex and Gender Information Value Date Recorded Sex Assigned at Female 03/05/2018 7:34 PM CDT Gender Identity Female 03/05/2018 7:34 PM CDT Sexual Orientation Straight 03/05/2018 7: 34 PM CDT documented as of this encounter Progress Notes * Arron Patricio M.D. - 01/10/2013 9:04 AM [...] continue observation without biopsy after discussion with her.Recheck 6 months. #[address]strom [address] Cameron #3 Cataract, both eyes Mild, observe. DIAGNOSIS #1 Subconjunctival lymphoma, left eye #2 Waldenstrom macroglobulinemia #3 Cataract, both eyes CDM Reports - [facility] Id: [id number] Status: Fnl documented in this encounter Plan of Treatment Upcoming Encounters Date Type Department Care Team (Late st Contact Info) Description 10/18/2023 2:00 PM JOURNEYMAN OPERATOR ASSISTANT Telemedicine Division of Hematology in [place], [place] [address] [place] [address] Arturo Aleman M.D. [address] [place] [address] documented as of this encounter Visit Diagnoses Not on filedocumented in this encounter Care Teams Fleshing Machine Operator Relationship Specialty Start Date End Date Elsewhere, Pcp PCP - General Internal Medicine 08/09/22 documented as of this encounter
--- OUTSIDE RECORDS SUMMARY | 2023-10-12 06:35 | XMS_ITS | Encounter Summary ---
Author Name Unknown Organization [facility] Address [address] [place] [address] Care Team Providers Care Dermatology Nurse Name Role Phone Elsewhere, Pcp Primary Care Provider Unavailabl e Encounter Details Date Type Department Care Team (Late st Contact Info) Description 07/12/2013 Historical Ophthalmology RST OPH Arron Patricio M.D. [address] [place] [address] Social History Tobacco Use Types Packs/Day Years Used Date Smoking Tobacco: Never Assessed Sex and Gender Information Value Date Recorded Sex Assigned at Female 03/05/2018 7:34 PM CDT Gender Identity Female 03/05/2018 7:34 PM CDT Sexual Orientation Straight 03/05/2018 7: 34 PM CDT documented as of this encounter Progress Notes * Arron Patricio M.D. - 07/12/2013 9:09 AM [...] both eyes CDM Reports - [facility] Id: [id number] Status: Fnl documented in this encounter Plan of Treatment Upcoming Encounters Date Type Department Care Team (Late st Contact Info) Description 10/18/2023 2:00 PM FORGE HAND Telemedicine Division of Hematology in [place], [place] [address] [place] [address] Arturo Aleman M.D. [address] [place] [address] documented as of this encounter Visit Diagnoses Not on filedocumented in this encounter Care Teams Dermatology Nurse Relationship Specialty Start Date End Date Elsewhere, Pcp PCP - General Internal Medicine 08/09/22 documented as of this encounter
--- OUTSIDE RECORDS SUMMARY | 2023-10-12 06:35 | XMS_ITS | Encounter Summary ---
Author Name Unknown Organization [facility] Address [address] [place] [address] Care Team Providers Care Rouge Presser Name Role Phone Elsewhere, Pcp Primary Care Provider Unavailabl e Encounter Details Date Type Department Care Team (Late st Contact Info) Description 02/07/2012 Historical Ophthalmology RST OPH Arron Patricio M.D. [address] [place] [address] Social History Tobacco Use Types Packs/Day Years Used Date Smoking Tobacco: Never Assessed Sex and Gender Information Value Date Recorded Sex Assigned at Female 03/05/2018 7:34 PM CDT Gender Identity Female 03/05/2018 7:34 PM CDT Sexual Orientation Straight 03/05/2018 7: 34 PM CDT documented as of this encounter Progress Notes * Arron Patricio M.D. - 02/07/2012 1:34 PM [...] Waldenstrom macroglobulinemia CDM Reports - [facility] Id: [id number] Status: Fnl documented in this encounter Plan of Treatment Upcoming Encounters Date Type Department Care Team (Late st Contact Info) Description 10/18/2023 2:00 PM HOSE COUPLING JOINER Telemedicine Division of Hematology in [place], [place] [address] [place] [address] Arturo Aleman M.D. [address] [place] [address] documented as of this encounter Visit Diagnoses Not on filedocumented in this encounter Care Teams Rouge Presser Relationship Specialty Start Date End Date Elsewhere, Pcp PCP - General Internal Medicine 08/09/22 documented as of this encounter
== END 2023-10-11 09:16 | disposition home or self-care (01) ==
LOC: NFLDREF 10-12 06:30
PROVIDERS: PCP Internal Medicine
DX: C88.0 Waldenstrom macroglobulinemia (principal)
CPT/HCPCS: 99001

== ENCOUNTER 2024-01-13 07:50 | Outpatient (CLI) | payer MEDICARE, BC, SELFPAY ==
--- OUTSIDE RECORDS SUMMARY | 2024-01-13 13:29 | XMS_ITS | Encounter Summary ---
Author Organization [facility] Address [address] [place] [address] Care Team Providers Care Student Ministries Director Name Role Phone Elsewhere, Pcp Primary Care Provider Unavailabl e Reason for Visit * Reason Onset Date Comments labs-records request 11/09/2023 Encounter Details Date Type Department Care Team (Latest Contact Info) Description 11/09/2023 Clinical Communication Division of Hematology in [place], [place] [address] [place] [address] Arturo Aleman M.D. [address] [place] [address] labs-records request Social History Tobacco Use Types Packs/Day Years [...] How often do you attend chur or anglican services? More than 4 times [...] and heating? Not hard at all 10/12/2022 [facility] [place] of Occupat ional Health - Occupational Stress [...] this encounter Plan of Treatment Not on file documented as of this encounter Visit Diagnoses Not on filedocumented in this encounter Care Teams Student Ministries Director Relationship Specialty Start Date End Date Elsewhere, Pcp PCP - General Internal Medicine 08/09/22 documented as of this encounter
--- OUTSIDE RECORDS SUMMARY | 2024-01-13 13:29 | XMS_ITS | Encounter Summary ---
Author Organization [facility] Address [address] [place] [address] Care Team Providers Care Want Ad Clerk Name Role Phone Elsewhere, Pcp Primary Care Provider Unavailabl e Reason for Referral * Outpatient (Routine) - Authorized Specialty Diagnoses / Procedures Referred By Radha ge Referred To Contact Hematology Oncology Arturo Aleman M.D. [address] [place] [address] [facility] Referral ID Status Reason Start Date Expiration Date V isits Requested Visits Authorized [id number] Authorized 10/18/2023 04/18/2025 1 1 GER TRANSPORTATION Reason for Visit * Outpatient (Routine) - Closed Specialty Diagnoses / Procedures Referred By Radha ge Referred To Contact Hematology Oncology Arturo Aleman M.D. [address] [place] [address] [facility] Referral ID Status Reason Start Date Expiration Date Visits Re quested Visits Authorized [id number] Closed 04/15/2023 04/14/2026 1 1 Encounter Details Date Type Department Care Team (Latest Contact Info) Description 10/18/2023 2:00 PM MANAGER TRANSPORTATION Telemedicine Division of Hematology in [place], [place] [address] [place] [phone] [place]uro [place] [address] Waldenstrom's Macroglobulinemia (HCC) (Primary Dx) Social History [...] How often do you attend chur or sabianist services? More than 4 times per year 10/12/2022 Do you belong to any clubs o r organizations such as tenriism groups, unions, fraternal [...] and heating? Not hard at all 10/12/2022 [facility] of Occupat ional Health - Occupational Stress [...] Progress Notes * Arturo Aleman M.D. - 10/18/2023 2:00 PM CST Consult conducted via real-time audio/video technology by Soraya Ricks M.D. in [facility] to the patient in Patient's Home SUBJECTIVE REASON FOR VISIT Waldentrom's macroglobulinemia HISTORY OF PRESENT ILLNESS Patient is a 77 y.o. woman with Waldentrom's macroglobulinemia whose hematological history may be summarized as follows: 1. 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 [id number]: Treated with rituximab, intermittently, totaling 10 different series. 3. November 14 to March 07, 2012: Treated with dexamethasone plus rituximab plus cyclophosphamide for 6cycles. 4. November 08 to January 25, 2017: Treated with rituximab plus bendamustine for 3 cycles. 5. January 2017 to present: Observed without treatment, maintaining partial response. INTERVAL HISTORY Real-time video visit for scheduled follow-up. Last encounter was on April 15, 2023. No clinical events in the interim. On my interview today she reports to be feeling well and denies constitutionalsymptoms such as fevers, chills, drenching night sweats, unintentional weight loss. REVIEW OF SYSTEMS All systems reviewed and negative except for HPI. OBJECTIVE There were no vitals filed for this visit. There is no height or weight on file to calculate BSA. PHYSICAL EXAM General: No acute distress. ECOG performance status is 0. Real-time video visit, patient not fully examined. DIAGNOSTICS Reviewed laboratory test results from blood samples obtained on October 11, 2023. ASSESSMENT / PLAN #1 Waldentrom's macroglobulinemia She continues to do well with no hematological manifestations of her disease. Special protein studies are stable. At this time she is maintaining a good response from her previous therapy and there is no indication for treatment at this time. Will continue to monitor with the next touch point in 6 months, [id number]. Follow-up: Return to clinic in 6 months Education We discussed the diagnosis and treatment plan in detail. The patient expressed understanding of thecontent. No apparent learning barriers were identified; learning preferences include listening. Signed by: Soraya Ricks M.D. 10/18/2023 GER TRANSPORTATION documented in this encounter Plan of Treatment Scheduled Orders Name Type Priority Associated Diagnoses Orde r Schedule Immunoglobulins (IgG, IgA, and IgM) Lab Routine Waldenstrom's Macroglobulinemia (HCC) Expected: 04/17/2024 (Approximate), Expires: 01/15/2025 Quantitative Lymphocyte Subsets: T, B, and Natural Killer (NK) Lab Routine Waldenstrom's Macroglobulinemia (HCC) Expected: 04/17/2024 (Approximate), Expires: 01/15/2025 Leukemia/Lymphoma Immunophenotyping by Flow Cytometry, Blood Lab Routine Waldenstrom's Macroglobulinemia (HCC) Expected: 04/17/2024 (Approximate), Expires: 01/15/2025 LD (Lactate Dehydrogenase) Lab Routine Waldenstrom's Macroglobulinemia (HCC) Expected: 04/17/2024 (Approximate), Expires: 01/15/2025 Comprehensive Metabolic Panel Lab Routine Waldenstrom's Macroglobulinemia (HCC) Expected: 04/17/2024 (Approximate), Expires: 01/15/2025 CBC with Differential, Blood Lab Routine Waldenstrom's Macroglobulinemia (HCC) Expected: 04/17/2024 (Approximate), Expires: 01/15/2025 Quantitative M-protein Study Lab Routine Waldenstrom's Macroglobulinemia (HCC) Expected: 04/17/2024 (Approximate), Expires: 01/15/2025 Scheduled Referrals Name Type Priority Associated Diagnoses Order Schedule Hematology office visit (clinic) [place]; Lymphoma; General Outpatient Referral Routine Expected: 04/17/2024 (Approximate), Expires: 01/15/2025 documented as of this encounter Visit Diagnoses Diagnosis Waldenstrom's Macroglobulinemia (HCC)- Primary documented in this encounter Care Teams Want Ad Clerk Relationship Specialty Start Date End Date Elsewhere, Pcp PCP - General Internal Medicine 08/09/22 documented as of this encounter
--- OUTSIDE RECORDS SUMMARY | 2024-01-13 13:29 | XMS_ITS ---
Author Organization [facility] Address [address] [place] [address] Care Team Providers Care Tray Casting Machine Operator Name Role Phone Unavailable Unavailable Unavailable Surgery Details Not on file Complications Check Surgery Details section. Procedure Estimated Blood Loss Check Surgery Details section. Procedure Findings Check Surgery Details section. Procedure Specimens Taken Check Surgery Details section.
--- OUTSIDE RECORDS SUMMARY | 2024-01-13 13:29 | XMS_ITS | Clinical Summary ---
Author Organization [facility] Address [address] [place] [address] Care Team Providers Care Interior Wall Assembler Name Role Phone Elsewhere, Pcp Primary Care Provider Unavailabl e Source Comments Patient records contain information from all sites at [facility]. For routine questions regarding patient records, call [phone] during business hours, M-F 8:00 AM - 5:00 PM Central Time. Record requests for emergency care only can be directed to [phone] at any time.[facility] Allergies No known active allergies Medications Medication Sig Dispensed Refills Start Date End Date Status CALCIUM ORAL Take 1 capsule by mouth daily. MICROCRYSTALLINE HYDROXYAPATITE Calcium supplement 12/07/2016 Active omega-3 fatty acids/fish oil (OMEGA 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) Take 2 capsules by mouth daily. OmegaGenics by [employer] 12/07/2016 Active TURMERIC ROOT EXTRACT ORAL Take 1 tablet by mouth as needed. 04/26/2017 Active cholecalciferol (VITAMIN D3) 125 mcg (5,000 Unit) tablet Take 1 tablet by mouth daily. 07/12/2013 Active magnesium oxide (MAG-OX) 400 mg (241.3 mg magnesium) tablet daily. Active vit A and D3 in cod liver oiL 1,250-135 unit capsule daily. Active aspirin [address] tablet Take 1 tablet (81 mg total) by mouth daily. 31 tablet 04/22/2023 Active atorvastatin (LIPITOR) 40 mg tablet Take 1 tablet (40 mg total) by mouth daily. 30 tablet 04/22/2023 Active cephalexin (KEFLEX) 500 mg capsule Take 1 tablet by mouth 3 (three) times a day with meals. 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 labs-records request 10/18/2023 2:00 PM DINING ROOM MAID Telemedicine Division of Hematology in [place], [place] [address] [place] [address] Arturo Aleman M.D. Waldenstrom's Macroglobulinemia (HCC) (Primary Dx) from Last 3 Months Family History Medical History Relation Name Comments Coronary artery disease Father Rosie Colon cancer Mother Fanny Delcid 84 yrs. Breast cancer Mother's Sister Kenyon lancaster 80 yrs Glaucoma Sister Amblyopia Neg Hx Blindness Neg Hx Macular degeneration Neg Hx Strabismus Neg Hx Relation Name Status Comments Father Rosie Mother Fanny Delcid Mother's Sister SMarcello lancaster Sister Social History Tobacco Use Types [...] How often do you attend chur or baptist services? More than 4 times per year 10/12/2022 Do you belong to any clubs o r organizations such as orthodox groups, unions, fraternal [...] and heating? Not hard at all 10/12/2022 [facility] of Occupat ional Health - Occupational Stress [...] 06/15/2023 10:53 AM CDT Plan of Treatment Health Maintenance [...] this topic Medical Devices Implanted Type Area Maintenance Painter Apprentice Device Identifier Shelf Expiration Date Model / Serial / Lot Breast Other Breast Other Right: Breast Description:Marker Conversions - Default Historical Implant Device Implanted:11/04 (Quantity not on file) Mesh or Patch Abdomen Description:Body Location - Abdominal. Device Status Text - MeshPatch. Lens Nasir 17.0d X 6.0mm - [id number] Implanted:Qty: 1 on 10/23/2014 Ocular Lens Other/Legacy - See Implant Description Nasir Spindle Description:Device Manufactu rer - Nasir Surgical. Body Location - Other. Left. Device Status Text - [id number]. Lens Tcn [id number] Bicnvx +17.5d - [id number] - [id number] Implanted:Qty: 1 on 03/04/2021 by Arron Patricio M.D. at [facility] Vaz/Gonda Ocular Lens Right: Eye [employer] Optics (Previously GUY) 11/02/2024 [id number] / [id number] / Procedures Procedure Name Priority Date/Time Associated Diagnosis Comments OUTSIDE MG MAMMOGRAM Routine 10/08/2015 2:01 PM DINING ROOM MAID from Last 3 Months or Most Recently Relevant to Health Maintenance Results * Outside MG Mammogram (10/08/2015 2:01 PM DINING ROOM MAID) 10/08/2015 2:01 PM DINING ROOM MAID Addenda Addendum by ProviderMichael M.D. on 10/08/2015 2:01 PM DINING ROOM MAID ODM^^^MCR MAMMOGRAM SCREEN,MELINA,DIGITAL 10/08/2015 14:01:56 Historical Provider IMG BI PROCEDURES [facility] [address] [place] [address] from Last 3 Months or Most Recently Relevant to Health Maintenance Care Teams Interior Wall Assembler Relationship Specialty Start Date End Date Elsewhere, Pcp PCP - General Internal Medicine 08/09/22
--- OUTSIDE RECORDS SUMMARY | 2024-01-13 13:29 | XMS_ITS | Referral Summary ---
Author Organization [facility] Address [address] [place] [address] Care Team Providers Care Heel Builder Name Role Phone Elsewhere, Pcp Primary Care Provider Unavailabl e Source Comments Patient records contain information from all sites at [facility]. For routine questions regarding patient records, call [phone] during business hours, M-F 8:00 AM - 5:00 PM Central Time. Record requests for emergency care only can be directed to [phone] at any time.[facility] Encounters Date Type Department Care Team Description 11/09/2023 Clinical Communication Division of Hematology in [place], [place] [address] [place] [address] Arturo Aleman M.D. labs-records request 10/18/2023 2:00 PM MOLD CHANGER Telemedicine Division of Hematology in [place], [place] [address] [place] [address] Arturo Aleman M.D. Waldenstrom's Macroglobulinemia (HCC) (Primary Dx) from Last 3 Months Allergies No known active allergies Medications Medication Sig Dispensed Refills Start Date End Date Status CALCIUM ORAL Take 1 capsule by mouth daily. MICROCRYSTALLINE HYDROXYAPATITE Calcium supplement 12/07/2016 Active omega-3 fatty acids/fish oil (OMEGA 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) Take 2 capsules by mouth daily. 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 Not hard at all 10/12/2022 [facility] of Occupat ional Health [...] 06/15/2023 10:53 AM CDT Plan of Treatment Not on file Medical Devices Implanted Type Area Cut Off Sawyer Device Identifier Shelf Expiration Date Model / Serial / Lot Breast Other Breast Other Right: Breast Description:Marker Conversions - Default Historical Implant Device Implanted:11/04 (Quantity not on file) Mesh or Patch Abdomen Description:Body Location - Abdominal. Device Status Text - MeshPatch. Lens Nasir 17.0d X 6.0mm - [id number] Implanted:Qty: 1 on 10/23/2014 Ocular Lens Other/Legacy - See Implant Description Nasir BigTent Design Description:Device Manufactu rer - Nasir Surgical. Body Location - Other. Left. Device Status Text - [id number]. Lens Tcn [id number] Bicnvx +17.5d - [id number] - [id number] Implanted:Qty: 1 on 03/04/2021 by Arron Patricio M.D. at [facility] Ocular Lens Right: Eye [employer] (Previously GUY) 11/02/2024 [id number] / [id number] / Procedures Procedure Name Priority Date/Time Associated Diagnosis Comments OUTSIDE MG MAMMOGRAM Routine 10/08/2015 2:01 PM MOLD CHANGER from Last 3 Months or Most Recently Relevant to Health Maintenance Results * Outside MG Mammogram (10/08/2015 2:01 PM MOLD CHANGER) 10/08/2015 2:01 PM MOLD CHANGER Addenda Addendum by ProviderMichael M.D. on 10/08/2015 2:01 PM MOLD CHANGER ODM^^^MCR MAMMOGRAM SCREEN,BILAT,DIGITAL 10/08/2015 14:01:56 Historical Provider IMG BI PROCEDURES [facility] [address] [place] [address], [facility] from Last 3 Months or Most Recently Relevant to Health Maintenance Care Teams Heel Builder Relationship Specialty Start Date End Date Elsewhere, Pcp PCP - General Internal Medicine 08/09/22
--- OUTSIDE RECORDS SUMMARY | 2024-01-13 13:29 | XMS_ITS | Clinical Summary ---
Author Organization [facility] Address [place], [place] [address] Care Team Providers Care Groundskeeper Supervisor Name Role Phone Brijesh Ken MD Primary [...] Comments Blood Pressure 158/79 08/31/2014 2:51 PM HUMIDIFIER MAINTENANCE WORKER Pulse 76 08/31/2014 2:51 PM HUMIDIFIER MAINTENANCE WORKER Temperature 36.8 ??C (98.2 ??F) 08/31/2014 2:51 PM CS T Respiratory Rate - - Oxygen Saturation 97% 08/31/2014 2:51 PM HUMIDIFIER MAINTENANCE WORKER Inhaled Oxygen Concentration - - Weight 71.7 kg (158 lb) 08/31/2014 2:51 PM HUMIDIFIER MAINTENANCE WORKER Height 165.1 cm (5' 5) 07/11/2009 8:05 AM HUMIDIFIER MAINTENANCE WORKER Body Mass Index 26.29 07/11/2009 8:05 AM HUMIDIFIER MAINTENANCE WORKER Plan of Treatment Health Maintenance Due Date Last Done Comments Tdap 11/16/1956 Depression screening for age 12+ 1956 BMI (ht and wt on same day) for age 18+ 1962 Hepatitis C screening for age 18-79 1962 Zoster (shingles) series for age 50+ (1 of 2) 1994 Pneumococcal series for age 65+ (2 of 2 - PCV) 2009 01/30/2003 Tetanus booster 04/16/2020 04/16/2010, 01/30/2003 COVID-19 vaccine series ( season) 2023 Influenza for age 65+ 04/22/2024 DEXA/DXA scan for age 65+ Completed 11/04/2009, Procedures Procedure Name Priority Date/Time Associated Diagnosis Comments XR DXA BONE DENSITY 2 SITES AXIAL Routine 11/04/2009 8:56 AM CDT Special Screening for Osteoporosis from Last 3 Months or Most Recently Relevant to Health Maintenance Results * XR DEXA BONE DENSITY 2 SITES (11/04/2009 8:56 AM CDT) Anatomical Region Laterality Modality Spine, HIPS, HIPL, HIPR Other 11/04/2009 8:56 AM CDT Narrative 11/06/2009 1:23 PM CDT Please see scanned document for results of this study. Procedure Note Ivone Bell - 11/06/2009 Please see scanned document for results of this study. Amelia Manzano DO DEXA from Last 3 Months or Most Recently Relevant to Health Maintenance Care Teams Groundskeeper Supervisor Relationship Specialty Start Date End Date Brijesh Ken MD [address] [place] [address] PCP - General 08/31/14
--- OUTSIDE RECORDS SUMMARY | 2024-01-13 13:30 | XMS_ITS | Encounter Summary ---
Author Organization [facility] Address [address] [place] [address] Care Team Providers Care Medical Professionals Name Role Phone Elsewhere, Pcp Primary Care Provider Unavailabl e Encounter Details Date Type Department Care Team (Late st Contact Info) Description 11/14/2014 Historical Ophthalmology RST OPH Arron Patricio M.D. [address] [place] [address] Social History Tobacco Use Types Packs/Day Years [...] left eye. CDM Reports - [facility] Id: [id number] Status: Fnl documented in this encounter Plan of Treatment Not on file documented as of this encounter Visit Diagnoses Not on filedocumented in this encounter Care Teams Medical Professionals Relationship Specialty Start Date End Date Elsewhere, Pcp PCP - General Internal Medicine 08/09/22 documented as of this encounter
--- OUTSIDE RECORDS SUMMARY | 2024-01-13 13:30 | XMS_ITS | Encounter Summary ---
Author Organization [facility] Address [address] [place] [address] Care Team Providers Care Chlorine Plant Operator Name Role Phone Elsewhere, Pcp Primary Care Provider Unavailabl e Encounter Details Date Type Department Care Team (Late st Contact Info) Description 06/01/2012 Historical Ophthalmology RST OPH Arron Patricio M.D. [address] [place] [address] Social History Tobacco Use Types Packs/Day Years [...] Waldenstrom macroglobulinemia CDM Reports - [facility]YE[facility] Id: [id number] Status: Fnl documented in this encounter Plan of Treatment Not on file documented as of this encounter Visit Diagnoses Not on filedocumented in this encounter Care Teams Chlorine Plant Operator Relationship Specialty Start Date End Date Elsewhere, Pcp PCP - General Internal Medicine 08/09/22 documented as of this encounter
--- OUTSIDE RECORDS SUMMARY | 2024-01-13 13:30 | XMS_ITS | Encounter Summary ---
Author Organization [facility] Address [address] [place] [address] Care Team Providers Care Filter Filler Name Role Phone Elsewhere, Pcp Primary Care Provider Unavailabl e Encounter Details Date Type Department Care Team (Late st Contact Info) Description 01/10/2013 Historical Ophthalmology RST OPH Arron Patricio M.D. [address] [place] [address] Social History Tobacco Use Types Packs/Day Years [...] #3 Cataract, both eyes CDM Reports - [facility] Id: [id number] Status: Fnl documented in this encounter Plan of Treatment Not on file documented as of this encounter Visit Diagnoses Not on filedocumented in this encounter Care Teams Filter Filler Relationship Specialty Start Date End Date Elsewhere, Pcp PCP - General Internal Medicine 08/09/22 documented as of this encounter
--- OUTSIDE RECORDS SUMMARY | 2024-01-13 13:30 | XMS_ITS | Encounter Summary ---
Author Organization [facility] Address [address] [place] [address] Care Team Providers Care Cultural Historian Name Role Phone Elsewhere, Pcp Primary Care Provider Unavailabl e Encounter Details Date Type Department Care Team (Late st Contact Info) Description 05/16/2017 Historical Ophthalmology RST OPH Arron Patricio M.D. [address] [place] [address] Social History Tobacco Use Types Packs/Day Years [...] right eye CDM Reports - EYEGEN Id: [id number] Status: Fnl documented in this encounter Plan of Treatment Not on file documented as of this encounter Visit Diagnoses Not on filedocumented in this encounter Care Teams Cultural Historian Relationship Specialty Start Date End Date Elsewhere, Pcp PCP - General Internal Medicine 08/09/22 documented as of this encounter
--- OUTSIDE RECORDS SUMMARY | 2024-01-13 13:30 | XMS_ITS | Encounter Summary ---
Author Organization [facility] Address [address] [place] [address] Care Team Providers Care Sales Operations Manager Name Role Phone Elsewhere, Pcp Primary Care Provider Unavailabl e Encounter Details Date Type Department Care Team (Late st Contact Info) Description 10/16/2014 Historical Ophthalmology RST OPH Arron Patricio M.D. [address] [place] [address] Social History Tobacco Use Types Packs/Day Years [...] the procedure with the patient (or legal automotive leasing sales representative and otherspresent during the discussion). The patient understands. All questions answered and consent given. #[address]denstrom [address] Cameron. #3 Cataract, left>right eye Visually significant Plan: Cataract surgery, left eye The alternatives to cataract surgery were discussed in detail with the patient (or legal automotive leasing sales representative and others present during the [...] left>right eye CDM Reports - EYEGEN Id: [id number] Status: Fnl documented in this encounter Plan of Treatment Not on file documented as of this encounter Visit Diagnoses Not on filedocumented in this encounter Care Teams Sales Operations Manager Relationship Specialty Start Date End Date Elsewhere, Pcp PCP - General Internal Medicine 08/09/22 documented as of this encounter
--- OUTSIDE RECORDS SUMMARY | 2024-01-13 13:30 | XMS_ITS | Encounter Summary ---
Author Organization [facility] Address [address] [place] [address] Care Team Providers Care Network Engineer Name Role Phone Elsewhere, Pcp Primary Care Provider Unavailabl e Encounter Details Date Type Department Care Team (Late st Contact Info) Description 10/28/2011 Historical Ophthalmology RST OPH Arron Patricio M.D. [address] [place] [address] Social History Tobacco Use Types Packs/Day Years [...] eye #2 Waldenstrom macroglobulinemia [facility] Id: [id number] Status: Fnl documented in this encounter Plan of Treatment Not on file documented as of this encounter Visit Diagnoses Not on filedocumented in this encounter Care Teams Network Engineer Relationship Specialty Start Date End Date Elsewhere, Pcp PCP - General Internal Medicine 08/09/22 documented as of this encounter
--- OUTSIDE RECORDS SUMMARY | 2024-01-13 13:30 | XMS_ITS | Encounter Summary ---
Author Organization [facility] Address [address] [place] [address] Care Team Providers Care Lab Courier Name Role Phone Elsewhere, Pcp Primary Care Provider Unavailabl e Encounter Details Date Type Department Care Team (Late st Contact Info) Description 10/24/2014 Historical Ophthalmology RST OPH Arron Patricio M.D. [address] [place] [address] Social History Tobacco Use Types Packs/Day Years [...] left eye. CDM Reports - EYEGEN Id: [id number] Status: Fnl documented in this encounter Plan of Treatment Not on file documented as of this encounter Visit Diagnoses Not on filedocumented in this encounter Care Teams Lab Courier Relationship Specialty Start Date End Date Elsewhere, Pcp PCP - General Internal Medicine 08/09/22 documented as of this encounter
--- OUTSIDE RECORDS SUMMARY | 2024-01-13 13:30 | XMS_ITS | Encounter Summary ---
Author Organization [facility] Address [address] [place] [address] Care Team Providers Care Appraiser Timber Name Role Phone Elsewhere, Pcp Primary Care Provider Unavailabl e Encounter Details Date Type Department Care Team (Late st Contact Info) Description 07/12/2013 Historical Ophthalmology RST O[facility] Arron Patricio M.D. [address] [place] [address] Social History Tobacco Use Types Packs/Day Years [...] #3 Cataract, both eyes CDM Reports - [employer] Id: [id number] Status: Fnl documented in this encounter Plan of Treatment Not on file documented as of this encounter Visit Diagnoses Not on filedocumented in this encounter Care Teams Appraiser Timber Relationship Specialty Start Date End Date Elsewhere, Pcp PCP - General Internal Medicine 08/09/22 documented as of this encounter
--- OUTSIDE RECORDS SUMMARY | 2024-01-13 13:30 | XMS_ITS | Encounter Summary ---
Author Organization [facility] Address [address] [place] [address] Care Team Providers Care Community Pharmacist Name Role Phone Elsewhere, Pcp Primary Care Provider Unavailabl e Encounter Details Date Type Department Care Team (Late st Contact Info) Description 10/07/2011 Historical Ophthalmology RST OPH Arron Patricio M.D. [address] [place] [address] Social History Tobacco Use Types Packs/Day Years [...] REPORT / PLAN Consult requested by: Jhonatan [id number] #1 Subconjunctival mass, less eye Etiology uncertain. [...] Waldenstrom macroglobulinemia CDM Reports - [employer] Id: [id number] Status: Fnl documented in this encounter Plan of Treatment Not on file documented as of this encounter Visit Diagnoses Not on filedocumented in this encounter Care Teams Community Pharmacist Relationship Specialty Start Date End Date Elsewhere, Pcp PCP - General Internal Medicine 08/09/22 documented as of this encounter
--- OUTSIDE RECORDS SUMMARY | 2024-01-13 13:30 | XMS_ITS | Encounter Summary ---
Author Organization [facility] Address [address] [place] [address] Care Team Providers Care Service Center Representative Name Role Phone Elsewhere, Pcp Primary Care Provider Unavailabl e Encounter Details Date Type Department Care Team (Late st Contact Info) Description 02/07/2012 Historical Ophthalmology RST OPH Arron Patricio M.D. [address] [place] [address] Social History Tobacco Use Types Packs/Day Years [...] Waldenstrom macroglobulinemia CDM Reports - [facility] Id: [id number] Status: Fnl documented in this encounter Plan of Treatment Not on file documented as of this encounter Visit Diagnoses Not on filedocumented in this encounter Care Teams Service Center Representative Relationship Specialty Start Date End Date Elsewhere, Pcp PCP - General Internal Medicine 08/09/22 documented as of this encounter
--- OUTSIDE RECORDS SUMMARY | 2024-01-13 13:30 | XMS_ITS | Encounter Summary ---
Author Organization [facility] Address [address] [place] [address] Care Team Providers Care Mother Baby Rn Name Role Phone Elsewhere, Pcp Primary Care Provider Unavailabl e Reason for Visit * Reason Onset Date Comments Send Treatment Letter CORTES 10/05/2023 Encounter Details Date Type Department Care Team (Latest Contact Info) Description 10/05/2023 Clinical Communication Division of Hematology in [place], [place] [address] [place] [address] Arturo Aleman M.D. [address] [place] [address] Send Treatment Letter CORTES Social History Tobacco [...] How often do you attend chur or holiness services? More than 4 times per year 10/12/2022 Do you belong to any clubs o r organizations such as baptist groups, unions, fraternal [...] and heating? Not hard at all 10/12/2022 [facility] - Occupational [...] on filedocumented in this encounter Care Teams Mother Baby Rn Relationship Specialty Start Date End Date Elsewhere, Pcp PCP - General Internal Medicine 08/09/22 documented as of this encounter
--- OUTSIDE RECORDS SUMMARY | 2024-01-13 13:30 | XMS_ITS | Encounter Summary ---
Author Organization [facility] Address [address] [place] [address] Care Team Providers Care Bag Mender Name Role Phone Elsewhere, Pcp Primary Care Provider Unavailabl e Encounter Details Date Type Department Care Team (Late st Contact Info) Description 09/14/2012 Historical Ophthalmology RST OPH Arron Patricio M.D. [address] [place] [address] Social History Tobacco Use Types Packs/Day Years [...] Waldenstrom macroglobulinemia CDM Reports - [employer] Id: [id number] Status: Fnl documented in this encounter Plan of Treatment Not on file documented as of this encounter Visit Diagnoses Not on filedocumented in this encounter Care Teams Bag Mender Relationship Specialty Start Date End Date Elsewhere, Pcp PCP - General Internal Medicine 08/09/22 documented as of this encounter
--- OUTSIDE RECORDS SUMMARY | 2024-01-13 13:30 | XMS_ITS | Encounter Summary ---
Author Organization [facility] Address [address] [place] [address] Care Team Providers Care Fish Culturist Name Role Phone Elsewhere, Pcp Primary Care Provider Unavailabl e Encounter Details Date Type Department Care Team (Late st Contact Info) Description 09/29/2016 Historical Ophthalmology RST OPH Arron Patricio M.D. [address] [place] [address] Social History Tobacco Use Types Packs/Day Years [...] / PLAN Consult requested by: Bereket Espino [id number] #1 Subconjunctival lymphoma, left eye s/p incisional [...] right eye CDM Reports - [facility] Id: [id number] Status: Fnl documented in this encounter Plan of Treatment Not on file documented as of this encounter Visit Diagnoses Not on filedocumented in this encounter Care Teams Fish Culturist Relationship Specialty Start Date End Date Elsewhere, Pcp PCP - General Internal Medicine 08/09/22 documented as of this encounter
--- OUTSIDE RECORDS SUMMARY | 2024-01-13 13:30 | XMS_ITS | Encounter Summary ---
Author Organization [facility] Address [address] [place] [address] Care Team Providers Care Trade Marker Name Role Phone Elsewhere, Pcp Primary Care Provider Unavailabl e Encounter Details Date Type Department Care Team (Late st Contact Info) Description 04/15/2014 Historical Ophthalmology RST OPH Arron Patricio M.D. [address] [place] [address] Social History Tobacco Use Types Packs/Day Years [...] left>right eye CDM Reports - [facility] Id: [id number] Status: Fnl documented in this encounter Plan of Treatment Not on file documented as of this encounter Visit Diagnoses Not on filedocumented in this encounter Care Teams Trade Marker Relationship Specialty Start Date End Date Elsewhere, Pcp PCP - General Internal Medicine 08/09/22 documented as of this encounter
--- OUTSIDE RECORDS SUMMARY | 2024-01-13 13:30 | XMS_ITS | Encounter Summary ---
Author Organization [facility] Address [address] [place] [address] Care Team Providers Care Strip Cutter Name Role Phone Elsewhere, Pcp Primary Care Provider Unavailabl e Encounter Details Date Type Department Care Team (Late st Contact Info) Description 06/26/2015 Historical Ophthalmology RST OPH Arron Patricio M.D. [address] [place] [address] Social History Tobacco Use Types Packs/Day Years [...] / PLAN Consult requested by: Bereket Espino [id number] #1 Subconjunctival lymphoma, left eye s/p incisional [...] right eye CDM Reports - [facility] Id: [id number] Status: Fnl documented in this encounter Plan of Treatment Not on file documented as of this encounter Visit Diagnoses Not on filedocumented in this encounter Care Teams Strip Cutter Relationship Specialty Start Date End Date Elsewhere, Pcp PCP - General Internal Medicine 08/09/22 documented as of this encounter
--- OUTSIDE RECORDS SUMMARY | 2024-01-13 13:30 | XMS_ITS | Encounter Summary ---
Author Organization [facility] Address [address] [place] [address] Care Team Providers Care Early Childhood Worker Name Role Phone Elsewhere, Pcp Primary Care Provider Unavailabl e Encounter Details Date Type Department Care Team (Late st Contact Info) Description 10/14/2011 Historical Ophthalmology RST OPH Arron Patricio M.D. [address] [place] [address] Social History Tobacco Use Types Packs/Day Years [...] Waldenstrom macroglobulinemia CDM Reports - [facility] Id: [id number] Status: Fnl documented in this encounter Plan of Treatment Not on file documented as of this encounter Visit Diagnoses Not on filedocumented in this encounter Care Teams Early Childhood Worker Relationship Specialty Start Date End Date Elsewhere, Pcp PCP - General Internal Medicine 08/09/22 documented as of this encounter
== END 2024-01-13 07:51 | disposition home or self-care (01) ==
LOC: NFLDREF 13:27
PROVIDERS: PCP Internal Medicine; Referring Provider Internal Medicine; Visit Provider Internal Medicine
DX: R53.83 Other fatigue (principal); I10 Essential (primary) hypertension; C88.0 Waldenstrom macroglobulinemia; Z13.9 Encounter for screening, unspecified
CPT/HCPCS: 80053; 82306; 83735

== ENCOUNTER 2024-05-24 14:33 | Outpatient (CLI) | payer MEDICARE, BC, SELFPAY | END 2024-05-24 14:34 | disposition home or self-care (01) | PROVIDERS: PCP Internal Medicine; Visit Provider Internal Medicine | DX: R53.83 Other fatigue (principal); I10 Essential (primary) hypertension; R30.0 Dysuria | CPT/HCPCS: 80053; 84443; 87086 ==

== ENCOUNTER 2024-09-25 12:28 | Outpatient (CLI) | payer MEDICARE, BC, SELFPAY ==
[2024-09-25 13:43] VITALS: BP 172/86; PULSE 82; RESP 18
--- NOTE | 2024-09-25 13:56 | PM.ST ---
Stress Test Note Date Date of test: 09/25/24 Providers Referring provider: Roni Mendiola Primary care provider: Brijesh Ken Stress test physician: Osman Givens Stress Test Note Stress test ordered: Stress Echo Indication for test: Chest pain Results discussion: Very nice 78-year-old female presents for the above test, after discussion the risks benefits side effects she would like to proceed cardiac stress test medical history form is reviewed in detail, pretest EKG shows normal sinus rhythm, with a ventricular rate of 68. Blood pressure [address] wave changes are noted. Standard Sloan protocol is employed over a time course of for minutes 33 seconds, and she achieved a metabolic equivalent of 6.4 Mets with a maximum heart rate of 141. Target predicted was 117%. Maximum blood pressure was 1 90-184. Test is terminated because of fulfillment of protocol, and overall fatigue. She did not have chest pain or shortness of breath. During this test there is no specific ST wave changes suggestive of ischemia she recovered normally there is no dysrhythmias. Conditioning was felt to be good Impression: Negative electrographic portion of stress echo, subjectively negative Follow up suggested: Await echo images, clinical correlation with these will be needed, patient will follow-up with ordering physician. And primary care physician. Left this testing facility in good condition.
== END 2024-09-25 13:46 | disposition home or self-care (01) ==
LOC: STRESS 12:29
PROVIDERS: PCP Internal Medicine; Visit Provider Family Medicine
DX: R07.89 Other chest pain (principal)
CPT/HCPCS: 93016; 93325; 93351

== ENCOUNTER 2024-10-16 08:17 | Outpatient (CLI) | payer MEDICARE, BC, SELFPAY | END 2024-10-16 08:18 | disposition home or self-care (01) | LOC: NFLDREF 10-17 08:50 | PROVIDERS: PCP Internal Medicine; Referring Provider Internal Medicine; Visit Provider Internal Medicine | DX: I10 Essential (primary) hypertension (principal); R53.83 Other fatigue; Z13.220 Encounter for screening for lipoid disorders | CPT/HCPCS: 80053; 80061 ==

== ENCOUNTER 2024-10-30 08:54 | Outpatient (CLI) | payer MEDICARE, BC, SELFPAY ==
[2024-10-30 11:54] LABS: Basophils Percent Auto 0.3 % (0.0-3.0); Eosinophils Percent Auto 4.3 % (0.0-7.0); Hematocrit 38.9 % (33.0-51.0); Hemoglobin* 12.7 gm/dL (12.0-16.0); Lymphocytes Percent Auto 15.7 % (20-44); Mean Corpuscular HGB Conc 33 gm/dL (32-36); Mean Corpuscular Hemoglobin 30 pg (26-34); Mean Corpuscular Volume 92 fL (80-100); Monocytes Percent Auto 10.8 % (0.0-11.0); Neutrophils Percent Auto 68.9 % (42.0-72.0); Platelet Count* 249 K/uL (140-440); RDW Coefficient of Variation % 13.1 % (11.5-15.5); Red Blood Count 4.25 m/uL (4.00-5.20); White Blood Count* 3.25 K/uL (4.50-11.00)
[2024-10-30 11:59] LABS: Slide Review Reflex No
[2024-10-30 12:04] LABS: Albumin* 4.1 g/dL (3.3-5.0)
[2024-10-30 12:05] LABS: Chloride* 97 mmol/L (96-114); Potassium* 3.9 mmol/L (3.6-5.1); Sodium* 132 mmol/L (135-149)
[2024-10-30 12:07] LABS: Anion Gap 6 mEq/L (7-15); Aspartate Amino Transferase* 21 U/L (12-35); Bilirubin Total* 0.8 mg/dL (0.1-1.5); Blood Urea Nitrogen* 18 mg/dL (7-30); Carbon Dioxide* 29 mmol/L (20-32); Creatinine* 0.6 mg/dL (0.5-1.5); Estimated Glomerular Filt Rate 91 ml/min; Total Protein* 6.7 g/dL (6.0-8.3)
[2024-10-30 12:08] LABS: Alanine Aminotransferase* 17 U/L (4-35); Alkaline Phosphatase* 58 U/L (40-150); Glucose* 98 mg/dL (60-115); Lactate Dehydrogenase* 155 U/L (120-246)
[2024-10-31 22:28] LABS: Viscosity, Serum 1.19 cP (<=1.50)
[2024-11-01 04:28] LABS: Immunoglobulin A 39 mg/dL (68-408); Immunoglobulin G 271 mg/dL (768-1632); Immunoglobulin M 1629 mg/dL (35-263)
[2024-11-01 21:20] LABS: Albumin 3.95 g/dL (3.75-5.01); Alpha 1 Globulin 0.33 g/dL (0.19-0.46); Alpha 2 Globulin 0.62 g/dL (0.48-1.05); Immunofixation IFE Done; Monoclonal Protein 0.97 g/dL (<=0.00); Total Protein, Serum 6.6 g/dL (6.3-8.2)
== END 2024-10-30 08:55 | disposition home or self-care (01) ==
LOC: NPINS 08:56
PROVIDERS: PCP Internal Medicine; Visit Provider Internal Medicine Hematology & Oncology
DX: C88.00 Waldenstrom macroglobulinemia not having achieved remission (principal)
CPT/HCPCS: 80053; 82784; 82787; 83520; 83615; 84155; 84165; 85025; 85810; 86334

== ENCOUNTER 2024-12-27 13:04 | Outpatient (CLI) | payer MEDICARE, BC, SELFPAY ==
--- NOTE | 2024-12-27 13:30 | CRLHL7_ITS ---
For Patients: As a result of the Century Cures Act, medical imaging exams and procedure reports are released immediately into your electronic medical record. You may view this report before your referring provider. If you have questions, please contact your health care provider. XR DXA Bone Mineral Density (BMD) Reason for exam: Other specified disorders of bone density. Current height (in): 65. Weight (lb): 145. Menopause age: 54. Ethnicity: White. 1. Have you had a previous hip or vertebral fracture? No. 2. Have you had any fractures during your adult life which did not result from significant trauma (e.g., auto accident)? Yes. 3. Did either of your parents have a hip fracture? No. 4. Do you smoke? No. 5. Have you ever taken Glucocorticoids? No. 6. Do you have rheumatoid arthritis? No. 7. Do you have secondary osteoporosis? Yes. 8. Do you drink 3 or more alcoholic drinks per day? No. 9. Are you being treated for osteoporosis? No. 10. Have you ever taken any of the following medications: Actonel, Evista, Fosamax, Miacalcin, Reclast, Boniva, Forteo, HRT (i.e., estrogen/hormone therapy), Protelos, Prolia, Vitamin D, Calcium, other ??? please specify. ANSWER: Yes, vitamin D and calcium. 11. Do you have any of the following medical conditions: Anorexia or bulimia, asthma or emphysema, end stage renal disease, hyperparathyroidism, any seizure disorders, cancer, inflammatory bowel diseases, hysterectomy, other ??? please specify. ANSWER: Yes, cancer. 12. What was your maximum height (inches)? 66. 13. Do you perform weight bearing exercise regularly? No. 14. Do you regularly consume dairy products? Yes. 15. Do you drink caffeinated beverages? No. 16. At what age did your period start? 12. 17. Are you premenopausal? No. 18. How many full-term pregnancies have you had? 3. 19. Have you ever missed your period for more than 6 months in a row (not including or menopause)? No. TECHNIQUE: Bone mineral density study was performed using the [employer]. FINDINGS: The results of the study expressed as bone mineral density (BMD) are as follows: Lumbar spine L1 to L4: BMD: 0.748 g/cm2. T-score: -2.7. Z-score: 0.0 Neck Left: BMD: 0.646 g/cm2. T-score: -1.8. Z-score: 0.5 Right: BMD: 0.601 g/cm2. T-score: -2.2. Z-score: 0.1 Total Left: BMD: 0.742 g/cm2. T-score: -1.6. Z-score: 0.4 Right: BMD: 0.792 g/cm2. T-score: -1.2. Z-score: 0.8 IMPRESSION: Osteoporosis. *Comparison exams done prior to 01/2020 were performed on different unit, [facility]. COMPARISON: Compared with scan of 09/16/2022, the bone mineral density has decreased by 3.6 percent at the spine and increased by 3.6 percent at the hip. Compared with scan of 07/10/2018, the bone mineral density has decreased by 0.7 percent at the spine and increased by 1.0 percent at the hip. Roni Machado M.D. Diagnostic Radiologist [email or web address] SEDA/sg jj/Dictated by: Roni Machado MD @ 12/28/2024 12:46:00 PM (Electronically Signed)
--- NOTE | 2024-12-27 14:00 | CRLHL7_ITS ---
For Patients: As a result of the Century Cures Act, medical imaging exams and procedure reports are released immediately into your electronic medical record. You may view this report before your referring provider. If you have questions, please contact your health care provider. INDICATION: BILATERAL SCREENING MAMMOGRAM, ASYMPTOMATIC 79 Y/O FEMALE COMPARISON: 12/08/20, 05/22/18, 10/08/15 TECHNIQUE: CC and MLO views were obtained. These mammographic images have been obtained using full-field digital technique. These mammographic images were interpreted with the benefit of computer aided detection and tomosynthesis. BREAST COMPOSITION: The breasts are almost entirely fatty. FINDINGS: No suspicious findings. ASSESSMENT: BI-RADS 2 Benign RECOMMENDATION: Annual screening mammogram. A lay language report of this examination will be provided to the patient. Dictated by: Roni Machado MD @ 12/28/2024 08:56:20 (Electronically Signed)
== END 2024-12-27 13:05 | disposition home or self-care (01) ==
LOC: RAD 13:05
PROVIDERS: PCP Internal Medicine; Visit Provider Internal Medicine
DX: Z12.31 Encounter for screening mammogram for malignant neoplasm of breast (principal); M85.80 Other specified disorders of bone density and structure, unspecified site; M81.0 Age-related osteoporosis without current pathological fracture; Z78.0 Asymptomatic menopausal state
CPT/HCPCS: 77063; 77067; 77080

== ENCOUNTER 2025-02-18 15:45 | Emergency (ER) | payer MEDICARE, BC, SELFPAY ==
[2025-02-18] VITALS (7 sets, daily range): BP systolic 167–205; BP diastolic 75–97; PULSE 80–89; RESP 18–20; TEMP 36.3; O2SAT 94–96; BMI 24.1
--- OUTSIDE RECORDS SUMMARY | 2025-02-18 15:47 | XMS_ITS | Encounter Summary ---
Author Organization [facility] Address [address] [place] [address] Care Team Providers Care Jack Machine Operator Name Role Phone Elsewhere, Pcp Primary Care Provider Unavailabl e Encounter Details Date Type Department Care Team (Late st Contact Info) Description 10/07/2011 Historical Ophthalmology RST OPH Arron Patricio M.D. 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 [...] Waldenstrom macroglobulinemia CDM Reports - [employer] Id: [id number] Status: Fnl documented in this encounter Plan of Treatment Not on file documented as of this encounter Visit Diagnoses Not on filedocumented in this encounter Care Teams Jack Machine Operator Relationship Specialty Start Date End Date Elsewhere, Pcp PCP - General Internal Medicine 08/09/22 documented as of this encounter
--- OUTSIDE RECORDS SUMMARY | 2025-02-18 15:47 | XMS_ITS | Encounter Summary ---
Author Organization [facility] Address [address] [place] [address] Care Team Providers Care Keg Varnisher Name Role Phone Elsewhere, Pcp Primary Care Provider Unavailabl e Encounter Details Date Type Department Care Team (Late st Contact Info) Description 10/14/2011 Historical Ophthalmology RST OPH Arron Patricio M.D. 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
--- OUTSIDE RECORDS SUMMARY | 2025-02-18 15:47 | XMS_ITS | Encounter Summary ---
Author Organization [facility] Address [address] [place] [address] Care Team Providers Care Accounts Payable Specialist Name Role Phone Elsewhere, Pcp Primary Care Provider Unavailabl e Encounter Details Date Type Department Care Team (Late st Contact Info) Description 10/28/2011 Historical Ophthalmology RST OPH Arron Patricio M.D. 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
--- OUTSIDE RECORDS SUMMARY | 2025-02-18 15:47 | XMS_ITS | Clinical Summary ---
Author Organization [facility] Address [address] [place] [address] Care Team Providers Care District Home Economics Agent Name Role Phone Elsewhere, Pcp Primary Care Provider Unavailabl e Source Comments Patient records contain information from all sites at [facility]. For routine questions regarding patient records, call [phone] during business hours, M-F 8:00 AM - 5:00 PM Central Time. Record requests for emergency care only can be directed to [phone] at any time.[facility] Allergies Active Allergy Reactions Criticality Noted Date Comments Iodinated Contrast Media Rash Low 07/02/2022 Faint redness day after CT on abdomen that resolved on its own Pt states I dont even know if it was the CT contrast since it was so delayed Medications * This document contains information received from the source organization and may not represent a complete record from that organization. CALCIUM ORAL Take 1 capsule by mouth daily. MICROCRYSTALLINE HYDROXYAPATITE Calcium supplement 12/08/19 17 Active TURMERIC ROOT EXTRACT ORAL Take 1 tablet by mouth daily. May take an additional tablet as needed. 04/26/20 17 Active cholecalciferol (VITAMIN D3) 125 mcg (5,000 Unit) tablet Take 1 tablet by mouth daily. 07/12/20 13 Active magnesium oxide (MAG-OX) 400 mg (241.3 mg magnesium) tablet Take 400 mg by mouth every evening. Active aspirin [address] tablet Take 1 tablet (81 mg total) by mouth daily. 31 tablet 04/22/20 23 Active atorvastatin (LIPITOR) 40 mg tablet Take 1 tablet (40 mg total) by mouth daily. 30 tablet 04/22/20 23 Active estradioL (ESTRACE) 0.1 mg/g (0.01%) vaginal cream Insert into the vagina 2 (two) times a week. 05/26/20 23 Active magnesium 200 mg tablet Take 200 mg by mouth every morning. Active cod liver oiL oil Take by mouth. 1 teaspoon daily Active Lactobacillus acidophilus (PROBIOTIC ORAL) Take 1 capsule by mouth daily. 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 Farhana 84 yrs. Colon cancer Mother 2 D. Farhana 84 yrs. Breast cancer Mother's Sister 1 S. anisha 80 yrs Breast cancer Mother's Sister 2 S. anisha 80 yrs Breast cancer Mother's Sister 3 S. anisha 80 yrs Glaucoma Sister Amblyopia Neg Hx Blindness Neg Hx Macular degeneration Neg Hx Strabismus Neg Hx Relation Name Status Comments Father 1 S.Farhana Father 2 S.Farhana Alive Mother 1 D. Farhana Alive Mother 2 D. Farhana Alive Mother's Sister 1 S. anisha Mother's Sister 2 S. anisha Alive Mother's Sister 3 S. anisha Alive Sister Social History Tobacco Use Types Packs/Day Years Used Date Smoking Tobacco: Never Smokeless Tobacco: Never Alcohol Use Standard Drinks/Week Comments Never 0 (1 standard drink = 0.6 oz pur e alcohol) [facility] Utilities Answer Date Recorded In the past 12 months has e [place], gas, oil, or water [employer] threatened to shut off services in your home? No 05/01/2024 Humiliation, Afraid, Rape, and Kick questionnair e [...] by your partner or ex-partner? No 10/12/2022 Hunger Vital Sign Answer Date Recorded Within the past 12 months, y ou worried that your food would run out before you got the money to buy more. Never true 05/01/20 24 Within the past 12 months, t he food you bought just didn't last and you didn't have money to get more. Never true 05/01/2024 PRAPARE - Transportation Answer Date Re corded In the past 12 months, has l ack of transportation kept you from medical appointments or from getting medications? No 04/22 In the past 12 months, has l ack of transportation kept you from meetings, work, or from getting things needed for daily living? No 05/01/2024 Housing Stability Answer Date Recorded What is your living situation today? I have a [facility] place to live 05/01/2024 Education Answer Date Recorded What is the highest level of school you have completed or the highest degree you have received? 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 Gender Identity Female 03/05/2018 7:34 PM CDT Sexual Orientation Straight 03/05/2018 7: 34 PM CDT Last Filed Vital Signs Vital Sign Reading Time Taken Comments Blood Pressure 148/72 05/08/2024 2:12 PM CDT Pulse 64 05/08/2024 2:12 PM CDT Temperature 36.3 C (97.3 F) 05/08/2024 2:12 PM CDT Respiratory Rate 12 04/22/2023 3:30 PM CDT Oxygen Saturation 95% 05/08/2024 2:12 PM CDT Inhaled Oxygen Concentration - - Weight 65.8 kg (145 lb 1 oz) 05/08/2024 2:12 PM CDT Height 164.3 cm (5' 4.69) 05/08/2024 2:12 PM CD T Body Mass Index 24.38 05/08/2024 2:12 PM CDT Plan of Treatment Health Maintenance Due Date Last Done Comments COVID-19 Vaccine (#1) 1950 Zoster Vaccines (1 of 2) 11/16/1963 Pneumococcal vaccine (50+ years) (3 of 3 - PCV) 09/25/2016 09/25/2015, 01/30/2003 RSV vaccine - (32-36 weeks) or 60+ years (1 - 1-dose 75+ series) 11/16/2019 Influenza Vaccine (#1) 2024 Office Visit for Blood Pressure Check / Re-check 08/07/2024 05/08/2024 Depression Screening (Annual PHQ-2) 08/22/2024 Fall Risk Screen (Annual) 08/22/2024 DTaP,Tdap,and Td Vaccines (2 - Td or Tdap) 07/16/2030 07/16/2020, 04/16/2010, 01/30/2003 Mammogram Discontinued 03/22/2016 (Perf ormed elsewhere), 10/08/2015, 10/02/2012, Additional history exists HPV Vaccines Aged Out No longer eligi ble based on patient's age to complete this topic IPV Vaccines Aged Out No longer eligi ble based on patient's age to complete this topic Medical Devices Implanted Type Area Oracle Database Analyst Device Identifier Shelf Expiration Date Model / Serial / Lot Breast Other Breast Other Right: Breast Description:Marker Conversions - Default Historical Implant Device Implanted:11/04 (Quantity not on file) Mesh or Patch Abdomen Description:Body Location - Abdominal. Device Status Text - MeshPatch. Lens Nasir 17.0d X 6.0mm - [id number] Implanted:Qty: 1 on 10/23/2014 Ocular Lens Other/Legacy - See Implant Description [employer] Description:Device Manufactu rer - [employer]. Body Location - Other. Left. Device Status Text - [id number]. Lens Tcn [id number] Bicnvx +17.5d - [id number] - [id number] Implanted:Qty: 1 on 03/04/2021 by Arron Patricio M.D. at [facility] Ocular Lens Right: Eye [employer] (Previously GUY) 11/02/2024 [id number] / [id number] / Procedures Procedure Name Priority Date/Time Associated Diagnosis Comments OUTSIDE MG MAMMOGRAM Routine 10/08/2015 2:01 PM MARKETING PROJECT COORDINATOR from Last 3 Months or Most Recently Relevant to Health Maintenance Results * Outside MG Mammogram (10/08/2015 2:01 PM MARKETING PROJECT COORDINATOR) 10/08/2015 2:01 PM MARKETING PROJECT COORDINATOR Addenda Addendum by ProviderMichael M.D. on 10/08/2015 2:01 PM MARKETING PROJECT COORDINATOR ODM^^^MCR MAMMOGRAM SCREEN,BILAT,DIGITAL 10/08/2015 14:01:56 Historical Provider IMG BI PROCEDURES Final Resu lt [facility] [address] [place] [address] from Last 3 Months or Most Recently Relevant to Health Maintenance Insurance [facility] MEDICARE Care Teams District Home Economics Agent Relationship Specialty Start Date End Date Elsewhere, Pcp PCP - General Internal Medicine 08/09/22
--- OUTSIDE RECORDS SUMMARY | 2025-02-18 15:48 | XMS_ITS | Encounter Summary ---
Author Organization [facility] Address [address] [place] [address] Care Team Providers Care Straightening Roll Operator Name Role Phone Elsewhere, Pcp Primary Care Provider Unavailabl e Encounter Details Date Type Department Care Team (Late st Contact Info) Description 04/15/2014 Historical Ophthalmology RST OPH Arron Patricio M.D. 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
--- OUTSIDE RECORDS SUMMARY | 2025-02-18 15:48 | XMS_ITS | Continuity of Care Document ---
Author Organization [facility] Address [address] [facility] [address] [place] [address] Assessment Encounter Date Assessment Date Assessment LastModified by Organization Details LastModified Time 01/11/2025 01/11/2025 ASSESSMENT: Patient is a good candidate for conservative care and the prognosis is for a favorable outcome that achieves the patients' goals. We discussed etiology, activity modifications, home care, and other treatment options. Initially, it is recommended that the patient receive in-office treatment 1 times per week for 8 weeks at which time a re-evaluation will be performed to determine an appropriate change in plan. Initially, treatment will focus on joint manipulation to restore range of motion and reduce pain. We will slowly progress to therapeutic exercises and activities to improve function, strength, and stability may also be used as warranted. If the patient is not responding as expected, more invasive procedures will be discussed along with a referral. All considerations above were discussed with the patient and questions answered to satisfaction. If the patient should have any additional questions, or should the condition evolve or worsen, the patient should not hesitate to contact our office. [email or web address] Not available 01/15/2025 18:45:15 Plan of Treatment Reminders Order Date Submit Date Provider Last Modified By Organization Details Last Modified Time Details Appointments None record ed. Lab None record ed. Referral None record ed. Procedures None record ed. Surgeries None record ed. Imaging None record ed. Medication Orders None record ed. Patient TargetsNo targets recorded. Patient InstructionsNo instructions recorded. Reason for Referral None Reported. Problems Name Problem SNOMED Code Status Onset Date Resolution Date Notes Provider Name and Address Organization Details Recorded Time Neck pain 02841210 Active 2024 Zach Carroll DC [address] [facility], [place], [address], [place] [facility] 5 16:48:20 Cervical segmental dysfunction 920055087 Active 2024 Zach Carroll DC [address] [facility], [place], [address], [place] [facility] 5 16:48:20 Lesion of lumbar spine 868433091 Active 2024 Zach Carroll DC [address] [facility], [place], [address], [place] [facility] 5 16:48:20 Thoracic segmental dysfunction 513968757 Active 2023 Zach Carroll DC [address] [facility], [place], [address], [place] [facility] 4 18:30:31 Lumbar segmental dysfunction 830523580 Active 2023 Zach Carroll DC [address] [facility], [place], [address], [place] [facility] 4 18:30:31 Low back pain 037990240 Active 2023 aZch Carroll DC [address] [facility], [place], [address], [place] [facility] 4 18:30:31 Somatic dysfunction of sacral spine 695424465 Active 2023 Zach Carroll DC [address] [facility], [place], [address], [place] [facility] 4 18:30:31 Problem Notes None recorded. Procedures Surgical History Date Name Laterality Status Provider Name and Address Organization Details Recorded Time 5 70520: Spinal manipulation , 3 to 4 regions completed Zach Carroll [place] [address] [facility], [place], [address], [place] [facility] 02/12/2025 17:53:40 5 15537: Spinal manipulation , 3 to 4 regions completed Zach Carroll[address], [place], [address], [place] [facility] 01/30/2025 10:11:00 5 42354: Spinal manipulation , 3 to 4 regions completed Zach Carroll DC [address] [facility], [place], [address], [place] [facility] 01/15/2025 18:45:15 5 87117: Spinal manipulation , 3 to 4 regions completed Sandoval France DC [address] [facility], [place], [address], [place] [facility] 01/07/2025 17:57:48 5 47414: Spinal manipulation , 3 to 4 regions completed Sandoval France DC [address] [facility], [place], [address], [place] [facility] 12/28/2024 16:19:08 5 18354: Spinal manipulation , 3 to 4 regions completed Zach Carroll DC [address] [facility], [place], [address], [place] [facility] 12/14/2024 14:46:17 5 33833: Spinal manipulation , 3 to 4 regions completed Sandoval France DC [address] [facility], [place], [address], [place] [facility] 11/30/2024 10:13:13 5 78915: Spinal manipulation , 3 to 4 regions completed Zach Carroll DC [address] [facility], [place], [address], [place] [facility] 11/22/2024 19:46:15 5 31637: Spinal manipulation , 3 to 4 regions completed Zach Carroll DC [address] [facility], [place], [address], [place] [facility] 11/14/2024 16:50:35 5 86196: Spinal manipulation , 3 to 4 regions completed Sandoval France DC [address] [facility], [place], [address], [place] [facility] 11/12/2024 10:53:25 5 16980: Spinal manipulation , 3 to 4 regions completed Zach Carroll DC [address] [facility], [place], [address], [place] [facility] 11/08/2024 10:51:22 5 56437: Spinal manipulation , 3 to 4 regions completed Zach Carroll DC [address] [facility], [place], [address], [facility] - [facility] 11/01/2024 15:10:06 5 56179: Spinal manipulation , 3 to 4 regions completed Sandoval France DC [address] [facility], [place], [address], [facility] - [facility] 10/26/2024 11:01:32 5 74669: Spinal manipulation , 3 to 4 regions completed Sandoval France DC [address] [facility], [place], [address], [facility] - [facility] 09/24/2024 11:32:12 5 13373: Spinal manipulation , 3 to 4 regions completed Sandoval France DC [address] [facility], [place], [address], [facility] - [facility] 09/21/2024 09:50:54 5 13744: Spinal manipulation , 3 to 4 regions completed Sandoval France DC [address] [facility], [place], [address], [facility] - [facility] 09/14/2024 11:46:54 5 50675: Spinal manipulation , 3 to 4 regions completed Sandoval France DC [address] [facility], [place], [address], [facility] - [facility] 09/07/2024 12:42:49 4 44933: Spinal manipulation , 3 to 4 regions completed Zach Carroll DC [address] [facility], [place], [address], [facility] 08/02/2024 09:42:33 4 08951: Spinal manipulation , 3 to 4 regions completed Sandoval France DC [address] [facility], [place], [address], [facility] 07/27/2024 13:22:48 4 32980: Spinal manipulation , 3 to 4 regions completed Zach Carroll DC [address] [facility], [place], [address], [facility] 07/25/2024 18:31:05 Imaging Results None recorded. Procedure Notes None recorded. Medical Equipment None Reported. Medications Name Sig Start Date Stop Date Status Note LastModified by Organization Details LastModified Time triamcinolone acetonide 0.1 % topical ointment APPLY TO AFFECTED AREAS ON THE BODY TWICE DAILY FOR TWO WEEKS AT A TIME. TAKE A TWO WEEK BREAK AND REPEAT NEEDED. active Not Available Not Available No t Available estradiol 0.01% (0.1 mg/gram) vaginal cream active Not Available Not Availabl e Not Available Vitals None Recorded Social History None recorded. Functional Status None recorded. Mental Status None recorded. Family History Nothing Reported. Medical History No medical history recorded. Gynecological HistoryNo gynecological history recorded. Obstetrics History GPAL:G 0 P 0 0 0 0 Past Encounters Encounter ID Performer Location Encounter Start Date Encounter Closed Date Diagnosis/Indication Diagnosis SNOMED-CT Code Diagnosis ICD10 Code Diagnosis Note [id number] Zach Carroll DC [facility] [address] [place] [address] [place] [address] 12/14/2024 10:30:41 12/14/2024 15:15:01 Cervical segmental dysfunction 904817645 M99.01 Neck pain 45427462 M54.2 Thoracic s egmental dysfunction 519698436 M99.02 Lumbar seg mental dysfunction 292137695 M99.03 Lesion of lumbar spine 266813313 M99.01 [id number] Sandoval France DC [facility] [address] [place] [address] 12/28/2024 15:57:35 12/28/2024 16:40:39 Cervical segmental dysfunction 059941468 M99.01 Neck pain 93166228 M54.2 Thoracic s egmental dysfunction 281305081 M99.02 Lumbar seg mental dysfunction 189014030 M99.03 Lesion of lumbar spine 865992230 M99.01 [id number] [facility] [address] [place] [address] 01/07/2025 17:38:06 01/07/2025 18:07:36 Cervical segmental dysfunction 889822632 M99.01 Neck pain 22057385 M54.2 Thoracic s egmental dysfunction 641280485 M99.02 Lumbar seg mental dysfunction 238676755 M99.03 Lesion of lumbar spine 478133907 M99.01 [id number] [facility] [address] [facility] [place] [address] 01/11/2025 18:32:09 01/22/2025 17:15:18 Cervical segmental dysfunction 073802341 M99.01 Neck pain 03790675 M54.2 Thoracic s egmental dysfunction 425177901 M99.02 Lumbar seg mental dysfunction 178045082 M99.03 Lesion of lumbar spine 661647653 M99.01 Health Concerns Section Related Observation LastModified by Organization Detai ls LastModified Time None Recorded Concern Status LastModified by Organization Details LastModified Time None Recorded Payers Encounter Date Sequence Insurance Name Policy Number Policy Varner Covered Member ID Varner Member ID Guarantor Name 01/11/2025 1 [place]: [employer] Sarah Meyer [id number] Roni Meyer 01/11/2025 2 [place] [id number] Sarah Meyer [id number] Roni Meyer Notes Date Note Type Note Provider Name and Address Organization Details Recorded Time 01/11/2025 text/html HPI - Cervical SpineReported bypatient.Location: left Quality:aching Severity:moderate Duration:2 weeks Timing:gradual Alleviating Factors:ice Aggravating Factors:sitting Associated Symptoms:no numbness/tingling Scot Jose Carroll DC [address] [facility], [place], [address], [facility] 01/15/2025 18:45:45 OBGyn Episode No OBEpisode recorded.
--- OUTSIDE RECORDS SUMMARY | 2025-02-18 15:48 | XMS_ITS | Encounter Summary ---
Author Organization [facility] Address [address] [place] [address] Care Team Providers Care Photographer Finish Name Role Phone Elsewhere, Pcp Primary Care Provider Unavailabl e Encounter Details Date Type Department Care Team (Late st Contact Info) Description 11/14/2014 Historical Ophthalmology RST OPH Arron Patricio M.D. 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 [facility] Status: Fnl documented in this encounter Plan of Treatment Not on file documented as of this encounter Visit Diagnoses Not on filedocumented in this encounter Care Teams Photographer Finish Relationship Specialty Start Date End Date Elsewhere, Pcp PCP - General Internal Medicine 08/09/22 documented as of this encounter
--- OUTSIDE RECORDS SUMMARY | 2025-02-18 15:48 | XMS_ITS | Encounter Summary ---
Author Organization [facility] Address [address] [place] [address] Care Team Providers Care Movie Theater Manager Name Role Phone Elsewhere, Pcp Primary Care Provider Unavailabl e Encounter Details Date Type Department Care Team (Late st Contact Info) Description 09/29/2016 Historical Ophthalmology RST OPH Arron Patricio M.D. 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
--- OUTSIDE RECORDS SUMMARY | 2025-02-18 15:48 | XMS_ITS | Continuity of Care Document ---
Author Organization [facility] Address [address] [facility] [address] [place] [address] Assessment Encounter Date Assessment Date Assessment LastModified by Organization Details LastModified Time 02/12/2025 02/12/2025 ASSESSMENT: Patient is a good candidate for [...] to contact our office. [email or web address] Not available 02/12/2025 17:52:27 Plan of Treatment Reminders Order Date Submit [...] Address Organization Details Recorded Time Neck pain 12958688 Active 2024 Zach Carroll DC [address] [facility], [place], [address], [place] [facility] 5 16:48:20 Cervical segmental dysfunction 293348814 Active 2024 Zach Carroll DC [address] [facility], [place], [address], [place] [facility] 5 16:48:20 Lesion of lumbar spine 834991699 Active 2024 Zach Carroll DC [address] [facility], [place], [address], [place] [facility] 5 16:48:20 Thoracic segmental dysfunction 567194757 Active 2023 Zach Carroll DC [address] [facility], [place], [address], [place] [facility] 4 18:30:31 Lumbar segmental dysfunction 501952307 Active 2023 Zach Carroll DC [address] [facility], [place], [address], [place] [facility] 4 18:30:31 Low back pain 660161522 Active 2023 Zach Carroll DC [address] [facility], [place], [address], [place] [facility] 4 18:30:31 Somatic dysfunction of sacral spine 176397775 Active 2023 Zach Carroll DC [address] [facility], [place], [address], [place] [facility] 4 18:30:31 Problem Notes None recorded. Procedures Surgical History Date Name Laterality Status Provider Name and Address Organization Details Recorded Time 5 29227: Spinal manipulation , 3 to 4 regions completed Zach Carroll [place] [address] [facility], [place], [address], [place] [facility] 02/12/2025 17:53:40 5 37401: Spinal manipulation , 3 to 4 regions completed Zach Carroll[address], [place], [address], [place] [facility] 01/30/2025 10:11:00 5 11895: Spinal manipulation , 3 to 4 regions completed Zach Carroll DC [address] [facility], [place], [address], [place] [facility] 01/15/2025 18:45:15 5 43559: Spinal manipulation , 3 to 4 regions completed Sandoval France DC [address] [facility], [place], [address], [place] [facility] 01/07/2025 17:57:48 5 55681: Spinal manipulation , 3 to 4 regions completed Sandoval France DC [address] [facility], [place], [address], [place] [facility] 12/28/2024 16:19:08 5 35452: Spinal manipulation , 3 to 4 regions completed Zach Carroll DC [address] [facility], [place], [address], [place] [facility] 12/14/2024 14:46:17 5 74107: Spinal manipulation , 3 to 4 regions completed Sandoval France DC [address] [facility], [place], [address], [place] [facility] 11/30/2024 10:13:13 5 18346: Spinal manipulation , 3 to 4 regions completed Zach Carroll DC [address] [facility], [place], [address], [place] [facility] 11/22/2024 19:46:15 5 32984: Spinal manipulation , 3 to 4 regions completed Zach Carroll DC [address] [facility], [place], [address], [place] [facility] 11/14/2024 16:50:35 5 80392: Spinal manipulation , 3 to 4 regions completed Sandoval France DC [address] [facility], [place], [address], [place] Replaced By [facility] 11/12/2024 10:53:25 5 18078: Spinal manipulation , 3 to 4 regions completed Zach Carroll DC [address] [facility], [place], [address], [place] Replaced By [facility] 11/08/2024 10:51:22 5 53787: Spinal manipulation , 3 to 4 regions completed Zach Carroll DC [address] [facility], [place], [address], [facility] - Replaced By [facility] 11/01/2024 15:10:06 5 52581: Spinal manipulation , 3 to 4 regions completed Sandoval France DC [address] [facility], [place], [address], [facility] - Replaced By [facility] 10/26/2024 11:01:32 5 99245: Spinal manipulation , 3 to 4 regions completed Sandoval France DC [address] [facility], [place], [address], [facility] - Replaced By [facility] 09/24/2024 11:32:12 5 26099: Spinal manipulation , 3 to 4 regions completed Sandoval France DC [address] [facility], [place], [address], [facility] - Replaced By [facility] 09/21/2024 09:50:54 5 18482: Spinal manipulation , 3 to 4 regions completed Sandoval France DC [address] [facility], [place], [address], [facility] - Replaced By [facility] 09/14/2024 11:46:54 5 28171: Spinal manipulation , 3 to 4 regions completed Sandoval France DC [address] [facility], [place], [address], [facility] - Replaced By [facility] 09/07/2024 12:42:49 4 37123: Spinal manipulation , 3 to 4 regions completed Zach Carroll DC [address] [facility], [place], [address], [facility] 08/02/2024 09:42:33 4 63884: Spinal manipulation , 3 to 4 regions completed Sandoval France DC [address] [facility], [place], [address], [facility] 07/27/2024 13:22:48 4 87633: Spinal manipulation , 3 to 4 regions completed Zach Carroll DC [address] [place] [address], [place], [address], [facility] 07/25/2024 18:31:05 Imaging Results None recorded. Procedure [...] SNOMED-CT Code Diagnosis ICD10 Code Diagnosis Note [id number] [facility] [address] [place] [address] 01/29/2025 18:25:48 02/05/2025 17:25:22 Lesion of lumbar spine 923582000 M99.01 Neck pain 61064563 M54.2 Thoracic s egmental dysfunction 060533080 M99.02 Lumbar seg mental dysfunction 272591203 M99.03 Cervical s egmental dysfunction 959455996 M99.01 [id number] JOSH Brian [facility] & [address] [place] [address] 02/12/2025 10:01:22 02/12/2025 18:46:08 Cervical segmental dysfunction 267465193 M99.01 Neck pain 67687047 M54.2 Thoracic s egmental dysfunction 066340206 M99.02 Lumbar seg mental dysfunction 593255026 M99.03 Lesion of lumbar spine 269267047 M99.01 Health Concerns Section Related Observation LastModified by Organization Detai ls LastModified Time None Recorded Concern Status LastModified by Organization Details LastModified Time None Recorded Payers Encounter Date Sequence Insurance Name Policy Number Policy Varner Covered Member ID Varner Member ID Guarantor Name 02/12/2025 1 [place] [employer] Sarah Meyer [id number] Roni Meyer 02/12/2025 2 [place] [id number] Sarah Meyer [id number] Roni Meyer Notes Date Note Type Note Provider Name and Address Organization Details Recorded Time 02/12/2025 text/html HPI - Cervical SpineReported bypatient.Location: left Quality:aching Severity:moderate Duration:2 weeks Timing:gradual Alleviating Factors:ice Aggravating Factors:sitting Associated Symptoms:no numbness/tingling Scot Jose Carroll DC [address] [facility], [place], [address], [facility] - Replaced By [facility] 02/12/2025 17:54:11 OBGyn Episode No OBEpisode recorded.
--- OUTSIDE RECORDS SUMMARY | 2025-02-18 15:48 | XMS_ITS | Encounter Summary ---
Author Organization [facility] Address [address] [place] [address] Care Team Providers Care Operational Risk Consultant Name Role Phone Elsewhere, Pcp Primary Care Provider Unavailabl e Encounter Details Date Type Department Care Team (Late st Contact Info) Description 05/16/2017 Historical Ophthalmology RST OPH Arron Patricio M.D. 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
--- OUTSIDE RECORDS SUMMARY | 2025-02-18 15:48 | XMS_ITS | Continuity of Care Document ---
Author Organization [facility] Address [address] [facility] [address] [place] [address] Assessment Encounter Date Assessment Date Assessment LastModified by Organization Details LastModified Time 01/07/2025 01/07/2025 ASSESSMENT: Patient is a good candidate for [...] should not hesitate to contact our office. [email or web address] Not available 01/07/2025 17:57:48 Plan of Treatment Reminders Order Date Submit [...] Address Organization Details Recorded Time Neck pain 89422051 Active 2024 Zach Carroll DC [address] [facility], [place], [address], [place] [facility] 5 16:48:20 Cervical segmental dysfunction 321610407 Active 2024 Zach Carroll DC [address] [facility], [place], [address], [place] [facility] 5 16:48:20 Lesion of lumbar spine 058218398 Active 2024 Zach Carroll DC [address] [facility], [place], [address], [place] [facility] 5 16:48:20 Thoracic segmental dysfunction 617902502 Active 2023 Zach Carroll DC [address] [facility], [place], [address], [place] [facility] 4 18:30:31 Lumbar segmental dysfunction 917258694 Active 2023 Zach Carroll DC [address] [facility], [place], [address], [place] [facility] 4 18:30:31 Low back pain 780725596 Active 2023 Zach Carroll DC [address] [facility], [place], [address], [place] [facility] 4 18:30:31 Somatic dysfunction of sacral spine 640777716 Active 2023 Zach Carroll DC [address] [facility], [place], [address], [place] [facility] 4 18:30:31 Problem Notes None recorded. Procedures Surgical History Date Name Laterality Status Provider Name and Address Organization Details Recorded Time 5 21539: Spinal manipulation , 3 to 4 regions completed Zach Carroll [place] [address] [facility], [place], [address], [place] [facility] 02/12/2025 17:53:40 5 33096: Spinal manipulation , 3 to 4 regions completed Zach Carroll [address], [place], [address], [place] [facility] 01/30/2025 10:11:00 5 06203: Spinal manipulation , 3 to 4 regions completed Zach Carroll DC [address] [facility], [place], [address], [place] [facility] 01/15/2025 18:45:15 5 19829: Spinal manipulation , 3 to 4 regions completed Sandoval France DC [address] [facility], [place], [address], [place] [facility] 01/07/2025 17:57:48 5 75282: Spinal manipulation , 3 to 4 regions completed Sandoval France DC [address] [facility], [place], [address], [facility] - [facility] 12/28/2024 16:19:08 5 64696: Spinal manipulation , 3 to 4 regions completed Zach Carroll DC [address] [facility], [place], [address], [facility] - [facility] 12/14/2024 14:46:17 5 95819: Spinal manipulation , 3 to 4 regions completed Sandoval France DC [address] [facility], [place], [address], [facility] - [facility] 11/30/2024 10:13:13 5 92203: Spinal manipulation , 3 to 4 regions completed Zach Carroll DC [address] [facility], [place], [address], [facility] - [facility] 11/22/2024 19:46:15 5 69552: Spinal manipulation , 3 to 4 regions completed Zach Carroll DC [address] [facility], [place], [address], [facility] - [facility] 11/14/2024 16:50:35 5 08454: Spinal manipulation , 3 to 4 regions completed Sandoval France DC [address] [facility], [place], [address], [facility] - [facility] 11/12/2024 10:53:25 5 29978: Spinal manipulation , 3 to 4 regions completed Zach Carroll DC [address] [facility], [place], [address], [facility] - [facility] 11/08/2024 10:51:22 5 99241: Spinal manipulation , 3 to 4 regions completed Zach Carroll DC [address] [facility], [place], [address], [facility] 11/01/2024 15:10:06 5 30791: Spinal manipulation , 3 to 4 regions completed Sandoval France DC [address] [facility], [place], [address], [facility] 10/26/2024 11:01:32 5 54542: Spinal manipulation , 3 to 4 regions completed Sandoval France DC [address] [facility], [place], [address], [facility] 09/24/2024 11:32:12 5 23123: Spinal manipulation , 3 to 4 regions completed Sandoval France DC [address] [facility], [place], [address], [facility] 09/21/2024 09:50:54 5 45598: Spinal manipulation , 3 to 4 regions completed Sandoval France DC [address] [facility], [place], [address], [facility] 09/14/2024 11:46:54 5 82429: Spinal manipulation , 3 to 4 regions completed Sandoval France DC [address] [facility], [place], [address], [facility] 09/07/2024 12:42:49 4 29925: Spinal manipulation , 3 to 4 regions completed Zach Carroll DC [address] [facility], [place], [address], [facility] 08/02/2024 09:42:33 4 26995: Spinal manipulation , 3 to 4 regions completed Sandoval France DC [address] [facility], [place], [address], [facility] 07/27/2024 13:22:48 4 60333: Spinal manipulation , 3 to 4 regions completed Zach Carroll DC [address] [facility], [place], [address], [facility] 07/25/2024 18:31:05 Imaging Results None recorded. [...] SNOMED-CT Code Diagnosis ICD10 Code Diagnosis Note [id number] Zach Carroll DC [facility] [address] [place] [address] [place] [address] 12/14/2024 10:30:41 12/14/2024 15:15:01 Cervical segmental dysfunction 092449590 M99.01 Neck pain 09371410 M54.2 Thoracic s egmental dysfunction 449615891 M99.02 Lumbar seg mental dysfunction 154045395 M99.03 Lesion of lumbar spine 951156611 M99.01 [id number] JOSH Sotelo [facility] [address] [place] [address] 12/28/2024 15:57:35 12/28/2024 16:40:39 Cervical segmental dysfunction 540393935 M99.01 Neck pain 30344161 M54.2 Thoracic s egmental dysfunction 944161312 M99.02 Lumbar seg mental dysfunction 359419501 M99.03 Lesion of lumbar spine 484425749 M99.01 [id number] Sandoval France DC CR[facility] [address] [facility] [place] [address] 01/07/2025 17:38:06 01/07/2025 18:07:36 Cervical segmental dysfunction 194377730 M99.01 Neck pain 90808612 M54.2 Thoracic s egmental dysfunction 769499878 M99.02 Lumbar seg mental dysfunction 479586244 M99.03 Lesion of lumbar spine 938021881 M99.01 Health Concerns Section Related Observation LastModified by Organization Detai ls LastModified Time None Recorded Concern Status LastModified by Organization Details LastModified Time None Recorded Payers Encounter Date Sequence Insurance Name Policy Number Policy Varner Covered Member ID Varner Member ID Guarantor Name 01/07/2025 1 [place]: [employer] Sarah Meyer [id number] Roni Meyer 01/07/2025 2 [place] [id number] Sarah Meyer [id number] Roni Meyer Notes Date Note Type Note Provider Name and Address Organization Details Recorded Time 01/07/2025 text/html HPI - Cervical SpineReported bypatient.Location: left Quality:aching Severity:moderate Duration:2 weeks Timing:gradual Alleviating Factors:ice Aggravating Factors:sitting Associated Symptoms:no numbness/tingling Sandoval France DC [address] [facility], [place], [address], [facility] - [facility] 01/07/2025 17:58:43 OBGyn Episode No OBEpisode recorded.
--- OUTSIDE RECORDS SUMMARY | 2025-02-18 15:48 | XMS_ITS | Clinical Summary ---
Author Organization [facility] Address [address] [place] [address] Care Team Providers Care Boarder Hand Name Role Phone Brijesh Ken MD Primary Care Provider [phone] Allergies No known active allergies Medications FISH OIL 1,000 MG CAPIndications:P alpitations 2 bid (500 mg EPA + DHA per capusule) 0 01/02/2007 Active COQ10 SG 100 100 MG-100 UNIT CAPIndications:P alpitations one daily 0 01/02/2007 Active GARLIC 400 MG TAB, DELAYED RELEASE two tabs daily 0 06/25/2008 Active VITAMIN D-3 400 UNIT TAB taking 5000 IU daily 0 06/25/2009 Active multivitamin (MVI) tablet Take 1 tablet by mouth once daily. 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 Gender Identity Not on file Sexual Orientation Not on file Occupation Industry Job Start Date Job End Date retired, works at [employer] Not on file Not on file Not on file Obstetrics History Para Term AB IAB SAB Ectopic Multiple Livin g Live Births 4 3 2 1 1 0 1 0 0 3 Date Outcome GA Total Labor Labor/2nd/3rd Weight Sex Type Anes PTL Izzy A1 A5 Name Clin SAB Term Term Last Filed Vital Signs Vital Sign Reading Time Taken Comments Blood Pressure 158/79 08/31/2014 2:51 PM STEREOTYPER HELPER Pulse 76 08/31/2014 2:51 PM STEREOTYPER HELPER Temperature 36.8 C (98.2 F) 08/31/2014 2:51 PM STEREOTYPER HELPER Respiratory Rate - - Oxygen Saturation 97% 08/31/2014 2:51 PM STEREOTYPER HELPER Inhaled Oxygen Concentration - - Weight 71.7 kg (158 lb) 08/31/2014 2:51 PM STEREOTYPER HELPER Height 165.1 cm (5' 5) 07/11/2009 8:05 AM STEREOTYPER HELPER Body Mass Index 26.29 07/11/2009 8:05 AM STEREOTYPER HELPER Plan of Treatment Health Maintenance Due Date Last Done Comments Tdap 11/16/1956 Depression screening for age 12+ 1956 BMI (ht and wt on same day) for age 18+ 1962 Zoster (shingles) series for age 50+ (1 of 2) 1994 Pneumococcal series for age 50+ (2 of 2 - PCV) 01/31/2004 01/30/2003 RSV vaccine for adults or (1 - 1-dose 75+ series) 11/16/2019 Tetanus booster 04/16/2020 04/16/2010, 01/30/2003 COVID-19 vaccine series ( - 2023- season) 2024 Influenza Vaccine (Season Ended) 2025 DEXA/DXA scan for age 65+ Completed 2009, 07/06/2007 Hepatitis B series for 19+ Aged Out N o longer eligible based on patient's age to complete this topic Procedures Procedure Name Priority Date/Time Associated Diagnosis [...] of this study. Procedure Note Ivone Bell D - 11/06/2009 Please see scanned document for results of this study. Amelia Manzano DO DEXA Final Resu lt from Last 3 Months or Most Recently Relevant to Health Maintenance Insurance [place] [address] MEDICARE PART B HB ONLY [place] BLUE MR PB ONLY Care Teams Boarder Hand Relationship Specialty Start Date End Date Brijesh Ken MD [address] [place] [address] PCP - General 08/31/14
--- OUTSIDE RECORDS SUMMARY | 2025-02-18 15:48 | XMS_ITS | Encounter Summary ---
Author Organization [facility] Address [address] [place] [address] Care Team Providers Care Certified Medical Asst Name Role Phone Elsewhere, Pcp Primary Care Provider Unavailabl e Encounter Details Date Type Department Care Team (Late st Contact Info) Description 06/26/2015 Historical Ophthalmology RST OPH Arron Patricio M.D. 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
--- OUTSIDE RECORDS SUMMARY | 2025-02-18 15:48 | XMS_ITS | Encounter Summary ---
Author Organization [facility] Address [address] [place] [address] Care Team Providers Care Bed Placement Coordinator Name Role Phone Elsewhere, Pcp Primary Care Provider Unavailabl e Encounter Details Date Type Department Care Team (Late st Contact Info) Description 10/16/2014 Historical Ophthalmology RST OPH Arron Patricio M.D. 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 The patient understands. All questions answered and consent given. #[address]den[address] Cameron. #3 Cataract, left>right eye Visually significant Plan: Cataract surgery, left eye The alternatives to cataract surgery were discussed in detail with the patient (or legal office services representative and others present during the discussion). [...] left>right eye CDM Reports - EYEGEN Id: [id number] Status: Fnl documented in this encounter Plan of Treatment Not on file documented as of this encounter Visit Diagnoses Not on filedocumented in this encounter Care Teams Bed Placement Coordinator Relationship Specialty Start Date End Date Elsewhere, Pcp PCP - General Internal Medicine 08/09/22 documented as of this encounter
--- OUTSIDE RECORDS SUMMARY | 2025-02-18 15:48 | XMS_ITS | Data Portability ---
Author Organization [place] [facility], [facility] Address [address] [facility] [address] [place] [address] Assessment Encounter Date Assessment Date Assessment LastModified by Organization Details LastModified Time 12/28/2024 12/28/2024 ASSESSMENT: Patient is a good candidate for [...] to contact our office. ecram Not available 12/28/2024 16:19:08 01/07/2025 01/07/2025 ASSESSMENT: Patient is a good [...] our office. ecram Not available 01/07/2025 17:57:48 01/11/2025 01/11/2025 ASSESSMENT: Patient is a good [...] should not hesitate to contact our office. Not available 01/15/2025 18:45:15 01/29/2025 01/29/2025 ASSESSMENT: Patient is a good candidate for [...] should not hesitate to contact our office. Not available 01/30/2025 10:10:53 02/12/2025 02/12/2025 ASSESSMENT: Patient is a good [...] should not hesitate to contact our office. Not available 02/12/2025 17:52:27 Plan of Treatment [...] Address Organization Details Recorded Time Neck pain 80764793 Active [address], [facility] [place] [place], [address], [facility] 16:48:20 Cervical segmental dysfunction 525513573 Active 2024 [place], [place] [address] [facility], [facility] [place], [address], [facility] 16:48:20 Lesion of lumbar spine 725086820 Active 2024 [place], [place] [address] [facility], [facility] [place], [address], [facility] 16:48:20 Thoracic segmental dysfunction 163130621 Active 2023 Zach Carroll DC [address] [facility] [address], [place], [address], [place] [facility] 4 18:30:31 Lumbar segmental dysfunction 551047930 Active 2023 Zach Carroll DC [address] [facility] [address], [place], [address], [place] [facility] 4 18:30:31 Low back pain 863929874 Active 2023 Zach Carroll DC [address] [facility], [place], [address], [place] [facility] 4 18:30:31 Somatic dysfunction of sacral spine 385359729 Active 2023 Zach Carroll DC [address] [facility] [address], [place], [address], [place] [facility] 18:30:31 Problem Notes None recorded. Procedures Surgical History Date Name Laterality Status Provider Name and Address Organization Details Recorded Time 5 92853: Spinal manipulation , 3 to 4 regions completed Zach Carroll ND [address] [facility], [place], [address], [facility] 02/12/2025 17:53:40 5 [address]8101: Spinal manipulation , 3 to 4 regions completed Zach Carroll ND [address] [facility], [place], [address], [facility] 01/30/2025 10:11:00 5 97091: Spinal manipulation , 3 to 4 regions completed Zach Carroll ND [address] [facility], [place], [address], [place] [facility] 01/15/2025 18:45:15 5 [address]176: Spinal manipulation , 3 to 4 regions completed Sandoval France DC [address] [facility], [place], [address], [place] [facility] 01/07/2025 17:57:48 5 35789: Spinal manipulation , 3 to 4 regions completed Sandoval France, JOSH [address] [facility], [place], [address], [facility] 12/28/2024 16:19:08 5 87049: Spinal manipulation , 3 to 4 regions completed Zach Carroll, JOSH [address] [facility] [address], [place], [address], [facility] 12/14/2024 14:46:17 5 56462: Spinal manipulation , 3 to 4 regions completed Sandoval France, JOSH [address] [facility] [address], [place], [address], [facility] 11/30/2024 10:13:13 5 42921: Spinal manipulation , 3 to 4 regions completed Zach Carroll, JOSH [address] [facility] [address], [place], [address], [facility] 11/22/2024 19:46:15 5 55322: Spinal manipulation , 3 to 4 regions completed Zach Carroll, JOSH [address] [facility] [address], [place], [address], [facility] 11/14/2024 16:50:35 5 02147: Spinal manipulation , 3 to 4 regions completed Sandoval France, JOSH [address] [facility] [address], [place], [address], [facility] 11/12/2024 10:53:25 5 59779: Spinal manipulation , 3 to 4 regions completed Zach Carroll, JOSH [address] [facility] [address], [place], [address], [facility] 11/08/2024 10:51:22 5 94366: Spinal manipulation , 3 to 4 regions completed Zach Carroll, DC [address] [facility] [address], [place], [address], [facility] 11/01/2024 15:10:06 5 46547: Spinal manipulation , 3 to 4 regions completed Sandoval France, JOSH [address] [facility] [address], [place], [address], [facility] 10/26/2024 11:01:32 5 73357: Spinal manipulation , 3 to 4 regions completed Sandoval Keyes Román, JOSH [address] [facility] [address], [place], [address], [facility] 09/24/2024 11:32:12 5 94990: Spinal manipulation , 3 to 4 regions completed Sandoval France, JOSH [address] [facility] [address], [place], [address], [facility] 09/21/2024 09:50:54 5 19371: Spinal manipulation , 3 to 4 regions completed Sandoval France, JOSH [address] [facility] [address], [place], [address], [facility] 09/14/2024 11:46:54 5 91232: Spinal manipulation , 3 to 4 regions completed Sandoval France DC [address] [facility] [address], [place], [address], [facility] 09/07/2024 12:42:49 4 56096: Spinal manipulation , 3 to 4 regions completed Zach Carroll DC [address] [facility] [address], [place], [address], [facility] 08/02/2024 09:42:33 4 04140: Spinal manipulation , 3 to 4 regions completed Sandoval France, JOSH [address] [facility] [address], [place], [address], [facility] 07/27/2024 13:22:48 4 50461: Spinal manipulation , 3 to 4 regions completed Zach Carroll, JOSH [address] [facility] [address], [place], [address], [facility] 07/25/2024 18:31:05 Imaging Results None recorded. Procedure [...] SNOMED-CT Code Diagnosis ICD10 Code Diagnosis Note [id number] Zach Carroll DC [facility] [address] [place] [address] 07/23/2024 16:12:04 07/26/2024 12:18:13 Lumbar segmental dysfunction 869941745 M99.03 Low back pain 141112687 M54.50 Somatic dy sfunction of sacral spine 295901209 M99.04 Thoracic s egmental dysfunction 755192846 M99.02 [id number] Sandoval France DC [facility] & [address] [place] [address] 07/27/2024 12:09:08 07/27/2024 13:27:26 Lumbar segmental dysfunction 730399428 M99.03 Low back pain 213815096 M54.50 Somatic dy sfunction of sacral spine 977088904 M99.04 Thoracic s egmental dysfunction 510540692 M99.02 [id number] Zach Carroll DC [facility] [address] [place] [address] 08/01/2024 16:59:16 08/02/2024 10:13:26 Lumbar segmental dysfunction 853468468 M99.03 Low back pain 945798652 M54.50 Somatic dy sfunction of sacral spine 640293257 M99.04 Thoracic s egmental dysfunction 832505787 M99.02 [id number] Sandoval France DC [facility] [address] [place] [address] 09/07/2024 12:33:49 09/07/2024 12:47:21 Lumbar segmental dysfunction 069046112 M99.03 Low back pain 243965699 M54.50 Somatic dy sfunction of sacral spine 510316025 M99.04 Thoracic s egmental dysfunction 762737234 M99.02 [id number] Sandoval France DC [facility] [address] [place] [address] 09/14/2024 11:41:22 09/14/2024 12:04:37 Lumbar segmental dysfunction 751976860 M99.03 Low back pain 541009190 M54.50 Somatic dy sfunction of sacral spine 789827292 M99.04 Thoracic s egmental dysfunction 984710917 M99.02 [id number] Sandoval France DC [facility] [address] [place] [address] 09/21/2024 09:00:42 09/21/2024 09:57:02 Lumbar segmental dysfunction 155369469 M99.03 Low back pain 289527981 M54.50 Somatic dy sfunction of sacral spine 476911401 M99.04 Thoracic s egmental dysfunction 254062875 M99.02 [id number] Sandoval France DC [facility] & [address] [place] [address] 09/24/2024 11:18:40 09/24/2024 12:46:28 Lumbar segmental dysfunction 487275695 M99.03 Low back pain 933290138 M54.50 Somatic dy sfunction of sacral spine 224987627 M99.04 Thoracic s egmental dysfunction 825089877 M99.02 [id number] Sandoval France DC [facility] [address] [facility] [place], [place] [address] 10/26/2024 10:23:50 10/26/2024 13:03:03 Lumbar segmental dysfunction 663437507 M99.03 Low back pain 937917781 M54.50 Somatic dy sfunction of sacral spine 099963885 M99.04 Thoracic s egmental dysfunction 545869447 M99.02 [id number] Zach Carroll DC [facility] [address] [place] [address] 11/01/2024 10:54:33 11/01/2024 15:13:22 Lumbar segmental dysfunction 529383429 M99.03 Low back pain 963174932 M54.50 Somatic dy sfunction of sacral spine 325136831 M99.04 Thoracic s egmental dysfunction 928284055 M99.02 [id number] Zach Carroll DC [facility] [address] [place] [address] 11/08/2024 09:45:50 11/08/2024 12:20:17 Lumbar segmental dysfunction 424516209 M99.03 Low back pain 460193666 M54.50 Somatic dy sfunction of sacral spine 254650524 M99.04 Thoracic s egmental dysfunction 563958836 M99.02 [id number] Sandoval France DC [facility] & [address] [place] [address] 11/12/2024 10:17:32 11/12/2024 10:54:43 Lumbar segmental dysfunction 521221323 M99.03 Low back pain 397933796 M54.50 Somatic dy sfunction of sacral spine 676943603 M99.04 Thoracic s egmental dysfunction 751201447 M99.02 [id number] Zach Carroll DC [facility] [address] [place] [address] 11/14/2024 16:43:39 2024 10:52:39 Cervical segmental dysfunction 646008615 M99.01 Neck pain 30294725 M54.2 Thoracic s egmental dysfunction 936126499 M99.02 Lumbar seg mental dysfunction 070105521 M99.03 Lesion of lumbar spine 189722149 M99.01 [id number] Zach Carroll DC [facility] [address] [place] [address] 11/22/2024 15:53:16 11/30/2024 11:18:02 Cervical segmental dysfunction 280772111 M99.01 Neck pain 19928292 M54.2 Thoracic s egmental dysfunction 606715395 M99.02 Lumbar seg mental dysfunction 379575723 M99.03 Lesion of lumbar spine 497847465 M99.01 [id number] Sandoval France DC [facility] [address] [place] [address] 11/30/2024 09:20:03 11/30/2024 10:17:18 Cervical segmental dysfunction 626438976 M99.01 Neck pain 99020031 M54.2 Thoracic s egmental dysfunction 668062877 M99.02 Lumbar seg mental dysfunction 618305132 M99.03 Lesion of lumbar spine 174849801 M99.01 [id number] Zach Carroll DC [facility] [address] [place] [address] 12/14/2024 10:30:41 12/14/2024 15:15:01 Cervical segmental dysfunction 967854823 M99.01 Neck pain 69986191 M54.2 Thoracic s egmental dysfunction 657357868 M99.02 Lumbar seg mental dysfunction 848265772 M99.03 Lesion of lumbar spine 504317165 M99.01 [id number] Sandoval France DC [facility] & [address] [place] [address] 12/28/2024 15:57:35 12/28/2024 16:40:39 Cervical segmental dysfunction 303371017 M99.01 Neck pain 50787229 M54.2 Thoracic s egmental dysfunction 191648530 M99.02 Lumbar seg mental dysfunction 297576148 M99.03 Lesion of lumbar spine 334804160 M99.01 [id number] Sandoval France DC [facility] & [address] [place] [address] 01/07/2025 17:38:06 01/07/2025 18:07:36 Cervical segmental dysfunction 338631824 M99.01 Neck pain 12488337 M54.2 Thoracic s egmental dysfunction 291091545 M99.02 Lumbar seg mental dysfunction 828653511 M99.03 Lesion of lumbar spine 935566509 M99.01 [id number] Sandoval France DC [facility] [place] [address] [facility] [facility] [place] [address] 01/11/2025 18:32:09 01/22/2025 17:15:18 Cervical segmental dysfunction 084008610 M99.01 Neck pain 18254513 M54.2 Thoracic s egmental dysfunction 400870693 M99.02 Lumbar seg mental dysfunction 062808006 M99.03 Lesion of lumbar spine 979710800 M99.01 [id number] Zach Carroll DC [facility] [place] [address] [facility] [address] [facility] [place] [address] 01/29/2025 18:25:48 02/05/2025 17:25:22 Lesion of lumbar spine 322133148 M99.01 Neck pain 70252957 M54.2 Thoracic s egmental dysfunction 895842014 M99.02 Lumbar seg mental dysfunction 065056907 M99.03 Cervical s egmental dysfunction 551711186 M99.01 [id number] Zach Carroll DC [facility] [place] [address] [facility] [address] [place] [address] 02/12/2025 10:01:22 02/12/2025 18:46:08 Cervical segmental dysfunction 511682707 M99.01 Neck pain 14836424 M54.2 Thoracic s egmental dysfunction 458020637 M99.02 Lumbar seg mental dysfunction 680986208 M99.03 Lesion of lumbar spine 334426774 M99.01 Health Concerns Section Related Observation LastModified by Organization Detai ls LastModified Time None Recorded Concern Status LastModified by Organization Details LastModified Time None Recorded Advance Directives Directive None Recorded Payers Insurance Date Sequence Insurance Name Policy Number Policy Varner Covered Member ID Varner Member ID Guarantor Name 02/12/2025 1 [place] [facility] Sarah Meyer [id number] Roni Meyer 02/12/2025 2 [place] [id number] Sarah Mitch [id number] Roni Meyer 02/12/2025 3 [place]MEDICARE REPLACEMENT HMO) [id number] David Meyer [id number] Roni Meyer 08/21/2024 2 UNSPECIFIED REMIT PAYOR Roni Meyer Notes Date Note Type Note Provider Name and Address Organization Details Recorded Time 12/28/2024 text/html HPI - Cervical SpineReported bypatient.Location: left Quality:aching Severity:moderate Duration:2 weeks Timing:gradual Alleviating Factors:ice Aggravating Factors:sitting Associated Symptoms:no numbness/tingling Sandoval Wali Cram, [place] [address] [facility] [address], [place], [address], [facility] 12/28/2024 16:20:03 01/07/2025 text/html HPI - Cervical SpineReported bypatient.Location: left Quality:aching Severity:moderate Duration:2 weeks Timing:gradual Alleviating Factors:ice Aggravating Factors:sitting Associated Symptoms:no numbness/tingling Sandoval Wali Cram, DC [address] [facility] [address], [place], [address], [facility] 01/07/2025 17:58:43 01/11/2025 text/html HPI - Cervical SpineReported bypatient.Location: left Quality:aching Severity:moderate Duration:2 weeks Timing:gradual Alleviating Factors:ice Aggravating Factors:sitting Associated Symptoms:no numbness/tingling Scot Jose Gubbels, DC [address] [facility] [address], [place], [address], [facility] 01/15/2025 18:45:45 01/29/2025 text/html HPI - Cervical SpineReported bypatient.Location: left Quality:aching Severity:moderate Duration:2 weeks Timing:gradual Alleviating Factors:ice Aggravating Factors:sitting Associated Symptoms:no numbness/tingling Scot Jose Gubbels, DC [address] [facility] [address], [place], [address], [facility] 01/30/2025 10:11:12 02/12/2025 text/html HPI - Cervical SpineReported bypatient.Location: left Quality:aching Severity:moderate Duration:2 weeks Timing:gradual Alleviating Factors:ice Aggravating Factors:sitting Associated Symptoms:no numbness/tingling Scot Jose Carroll DC [address] [facility] [address], [place], [address], [facility] 02/12/2025 17:54:11 OBGyn Episode No OBEpisode recorded.
--- OUTSIDE RECORDS SUMMARY | 2025-02-18 15:48 | XMS_ITS | Encounter Summary ---
Author Organization [facility] Address [address] [place] [address] Care Team Providers Care Ham Sawyer Name Role Phone Elsewhere, Pcp Primary Care Provider Unavailabl e Encounter Details Date Type Department Care Team (Late st Contact Info) Description 10/24/2014 Historical Ophthalmology RST OPH Arron Patricio M.D. 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 CDM Reports - [facility] Id: [id number] Status: Fnl documented in this encounter Plan of Treatment Not on file documented as of this encounter Visit Diagnoses Not on filedocumented in this encounter Care Teams Ham Sawyer Relationship Specialty Start Date End Date Elsewhere, Pcp PCP - General Internal Medicine 08/09/22 documented as of this encounter
--- OUTSIDE RECORDS SUMMARY | 2025-02-18 15:49 | XMS_ITS | Encounter Summary ---
Author Organization [facility] Address [address] [place] [address] Care Team Providers Care Workers Compensation Coordinator Name Role Phone Elsewhere, Pcp Primary Care Provider Unavailabl e Encounter Details Date Type Department Care Team (Late st Contact Info) Description 06/01/2012 Historical Ophthalmology RST OPH Arron Patricio M.D. 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
--- OUTSIDE RECORDS SUMMARY | 2025-02-18 15:49 | XMS_ITS | Encounter Summary ---
Author Organization [facility] Address [address] [place] [address] Care Team Providers Care Panel Saw Operator Name Role Phone Elsewhere, Pcp Primary Care Provider Unavailabl e Encounter Details Date Type Department Care Team (Late st Contact Info) Description 02/07/2012 Historical Ophthalmology RST OPH Arron Patricio M.D. 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
--- OUTSIDE RECORDS SUMMARY | 2025-02-18 15:49 | XMS_ITS | Encounter Summary ---
Author Organization [facility] Address [address] [place] [address] Care Team Providers Care Marina Sales And Service Supervisor Name Role Phone Elsewhere, Pcp Primary Care Provider Unavailabl e Encounter Details Date Type Department Care Team (Late st Contact Info) Description 07/12/2013 Historical Ophthalmology RST OPH Arron Patricio M.D. 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
--- OUTSIDE RECORDS SUMMARY | 2025-02-18 15:49 | XMS_ITS | Encounter Summary ---
Author Organization [facility] Address [address] [place] [address] Care Team Providers Care Mechanical Cad Drafter Name Role Phone Elsewhere, Pcp Primary Care Provider Unavailabl e Encounter Details Date Type Department Care Team (Late st Contact Info) Description 09/14/2012 Historical Ophthalmology RST OPH Arron Patricio M.D. 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
--- OUTSIDE RECORDS SUMMARY | 2025-02-18 15:49 | XMS_ITS | Encounter Summary ---
Author Organization [facility] Address [address] [place] [address] Care Team Providers Care Environmental Manager Name Role Phone Elsewhere, Pcp Primary Care Provider Unavailabl e Encounter Details Date Type Department Care Team (Late st Contact Info) Description 01/10/2013 Historical Ophthalmology RST OPH Arron Patricio M.D. [address] [place] [phone] Social History Tobacco Use Types Packs/Day Years Used Date Smoking Tobacco: Never Assessed Comments Unknown Sex and Gender Information Value Date Recorded Sex Assigned at Female 03/05/2018 7:34 PM CDT Legal Sex Female 3:54 PM [employer] Gender Identity Female 03/05/2018 7:34 PM CDT [...] #3 Cataract, both eyes CDM Reports - [employer] Id: [id number] Status: Fnl documented in this encounter Plan of Treatment Not on file documented as of this encounter Visit Diagnoses Not on filedocumented in this encounter Care Teams Environmental Manager Relationship Specialty Start Date End Date Elsewhere, Pcp PCP - General Internal Medicine 08/09/22 documented as of this encounter
--- OUTSIDE RECORDS SUMMARY | 2025-02-18 15:49 | XMS_ITS | Continuity of Care Document ---
Author Organization [facility] Address [address] [address] [place] [address] Assessment Encounter Date Assessment Date Assessment LastModified by Organization Details LastModified Time 01/29/2025 01/29/2025 ASSESSMENT: Patient is a good [...] to contact our office. [email or web address] Not available 01/30/2025 10:10:53 Plan of Treatment Reminders Order Date Submit [...] Address Organization Details Recorded Time Neck pain 39456074 Active 2024 Zach Carroll DC [address] [facility], [place], [address], [place] [facility] 5 16:48:20 Cervical segmental dysfunction 580225844 Active 2024 Zach Carroll DC [address] [facility], [place], [address], [place] [facility] 5 16:48:20 Lesion of lumbar spine 980747529 Active 2024 Zach Carroll DC [address] [facility], [place], [address], [place] [facility] 5 16:48:20 Thoracic segmental dysfunction 847440677 Active 2023 Zach Carroll DC [address] [facility], [place], [address], [place] [facility] 4 18:30:31 Lumbar segmental dysfunction 629888817 Active 2023 Zach Carroll DC [address] [facility], [place], [address], [place] [facility] 4 18:30:31 Low back pain 578018365 Active 2023 Zach Carroll DC [address] [facility], [place], [address], [place] [facility] 4 18:30:31 Somatic dysfunction of sacral spine 072400188 Active 2023 Zach Carroll DC [address] [facility], [place], [address], [place] [facility] 4 18:30:31 Problem Notes None recorded. Procedures Surgical History Date Name Laterality Status Provider Name and Address Organization Details Recorded Time 5 56201: Spinal manipulation , 3 to 4 regions completed Zach Carroll [place] [address] [facility], [place], [address], [place] [facility] 02/12/2025 17:53:40 5 90123: Spinal manipulation , 3 to 4 regions completed Zach [address], [place], [address], [place] [facility] 01/30/2025 10:11:00 5 32854: Spinal manipulation , 3 to 4 regions completed Zach Carroll DC [address] [facility], [place], [address], [place] [facility] 01/15/2025 18:45:15 5 42213: Spinal manipulation , 3 to 4 regions completed Sandoval France DC [address] [facility], [place], [address], [place] [facility] 01/07/2025 17:57:48 5 14078: Spinal manipulation , 3 to 4 regions completed Sandoval France DC [address] [facility], [place], [address], [place] [facility] 12/28/2024 16:19:08 5 22056: Spinal manipulation , 3 to 4 regions completed Zach Carroll DC [address] [facility], [place], [address], [place] [facility] 12/14/2024 14:46:17 5 35440: Spinal manipulation , 3 to 4 regions completed Sandoval France DC [address] [facility], [place], [address], [place] [facility] 11/30/2024 10:13:13 5 04068: Spinal manipulation , 3 to 4 regions completed Zach Carroll DC [address] [facility], [place], [address], [place] [facility] 11/22/2024 19:46:15 5 61295: Spinal manipulation , 3 to 4 regions completed Zach Carroll DC [address] [facility], [place], [address], [place] [facility] 11/14/2024 16:50:35 5 95439: Spinal manipulation , 3 to 4 regions completed Sandoval France DC [address] [facility], [place], [address], [place] [facility] 11/12/2024 10:53:25 5 92432: Spinal manipulation , 3 to 4 regions completed Zach Carroll DC [address] [facility], [place], [address], [place] [facility] 11/08/2024 10:51:22 5 40061: Spinal manipulation , 3 to 4 regions completed Zach Carroll DC [address] [facility], [place], [address], [facility] [place] [facility] 11/01/2024 15:10:06 5 19006: Spinal manipulation , 3 to 4 regions completed Sandoval France DC [address] [facility], [place], [address], [facility] [place] [facility] 10/26/2024 11:01:32 5 54512: Spinal manipulation , 3 to 4 regions completed Sandoval France DC [address] [facility], [place], [address], [facility] [place] [facility] 09/24/2024 11:32:12 5 94245: Spinal manipulation , 3 to 4 regions completed Sandoval France DC [address] [facility], [place], [address], [facility] [place] [facility] 09/21/2024 09:50:54 5 76091: Spinal manipulation , 3 to 4 regions completed Sandoval France DC [address] [facility], [place], [address], [facility] [place] [facility] 09/14/2024 11:46:54 5 65194: Spinal manipulation , 3 to 4 regions completed Sandoval France DC [address] [facility], [place], [address], [facility] [place] [facility] 09/07/2024 12:42:49 4 52187: Spinal manipulation , 3 to 4 regions completed Zach Carroll DC [address] [facility], [place], [address], [facility] 08/02/2024 09:42:33 4 37930: Spinal manipulation , 3 to 4 regions completed Sandoval France DC [address] [facility], [place], [address], [facility] 07/27/2024 13:22:48 4 42716: Spinal manipulation , 3 to 4 regions completed Zach Carroll DC [address] [facility], [place], [address], [facility] 07/25/2024 18:31:05 Imaging Results None recorded. [...] SNOMED-CT Code Diagnosis ICD10 Code Diagnosis Note [id number] J[facility] Sotelo [facility] [address] [place] [address] 01/07/2025 17:38:06 01/07/2025 18:07:36 Cervical segmental dysfunction 075700232 M99.01 Neck pain 33632452 M54.2 Thoracic s egmental dysfunction 228629516 M99.02 Lumbar seg mental dysfunction 300471570 M99.03 Lesion of lumbar spine 597169645 M99.01 [id number] JOSH Sotelo [facility] [address] [place] [address] 01/11/2025 18:32:09 01/22/2025 17:15:18 Cervical segmental dysfunction 710370716 M99.01 Neck pain 87184827 M54.2 Thoracic s egmental dysfunction 850070018 M99.02 Lumbar seg mental dysfunction 220161902 M99.03 Lesion of lumbar spine 237786861 M99.01 [id number] Zach Carroll DC [facility] [address] [place] [address] 01/29/2025 18:25:48 02/05/2025 17:25:22 Lesion of lumbar spine 574525162 M99.01 Neck pain 29237694 M54.2 Thoracic s egmental dysfunction 456657217 M99.02 Lumbar seg mental dysfunction 269390450 M99.03 Cervical s egmental dysfunction 044313688 M99.01 Health Concerns Section Related Observation LastModified by Organization Detai ls LastModified Time None Recorded Concern Status LastModified by Organization Details LastModified Time None Recorded Payers Encounter Date Sequence Insurance Name Policy Number Policy Varner Covered Member ID Varner Member ID Guarantor Name 01/29/2025 1 [place] [employer] Sarah Meyer [id number] Roni Meyer 01/29/2025 2 [place] [id number] Sarah Meyer [id number] Roni Meyer Notes Date Note Type Note Provider Name and Address Organization Details Recorded Time 01/29/2025 text/html HPI - Cervical SpineReported bypatient.Location: left Quality:aching Severity:moderate Duration:2 weeks Timing:gradual Alleviating Factors:ice Aggravating Factors:sitting Associated Symptoms:no numbness/tingling Zach Carroll DC [address] [facility], [place], [address], [facility] [place] [facility] 01/30/2025 10:11:12 OBGyn Episode No OBEpisode recorded.
--- NOTE | 2025-02-18 15:53 | CRLHL7_ITS ---
For Patients: As a result of the Cures Act, medical imaging exams and procedure reports are released immediately into your electronic medical record. You may view this report before your referring provider. If you have questions, please contact your health care provider. Indication: LT KNEE PAIN, PAIN, FALL Technique: Two views of the left knee. Comparison: None. Findings: No acute displaced fracture or malalignment. Mild degenerative changes of the medial compartment of the knee. No significant knee joint effusion. Mild vascular calcification. Impression: No acute displaced fracture or malalignment. Dictated by Luiz Boothe MD @ 02/18/2025 4:28:32 PM (Electronically Signed)
--- NOTE | 2025-02-18 15:53 | CRLHL7_ITS ---
For Patients: As a result of the Cures Act, medical imaging exams and procedure reports are released immediately into your electronic medical record. You may view this report before your referring provider. If you have questions, please contact your health care provider. INDICATION: Fall with left 5th finger clicking and bruising COMPARISON: None. TECHNIQUE: Three radiographic view(s) of the left 5th finger. FINDINGS: No evident acute displaced fracture. Normal osseous alignment. Minimal degenerative change in the 5th finger. Incompletely imaged degenerative changes elsewhere in the hand such as at the 1st CMC joint. IMPRESSION: No evident acute displaced fracture. Dictated by Harshad Robles MD @ 02/18/2025 4:28:40 PM (Electronically Signed)
--- NOTE | 2025-02-18 15:53 | CRLHL7_ITS ---
For Patients: As a result of the Cures Act, medical imaging exams and procedure reports are released immediately into your electronic medical record. You may view this report before your referring provider. If you have questions, please contact your health care provider. Indication: Fall, hit head Technique: Volumetric multidetector CT images of the cervical spine were obtained without the administration of IV contrast. Comparison: None available. Findings: The cervical vertebral body heights are grossly maintained with minimal endplate Schmorl`s defects. There is mild straightening of the normal cervical lordosis with trace anterolisthesis of C4 on C5. There is no displaced fracture or dislocation. There is moderate degenerative disc disease with disc height loss and marginal osteophyte formation. Moderate to severe degenerative change of the atlantoaxial joint. Moderate to severe facet arthrosis. Mild biapical pleural thickening and parenchymal scar. Impression: Moderate to severe degenerative changes of the cervical spine without acute osseous abnormality. Please note that all CT scans at this facility use dose modulation, iterative reconstruction, and/or weight-based dosing when appropriate to reduce radiation dose to as low as reasonably achievable. Dictated by Gregory Gama MD @ 02/18/2025 4:21:23 PM (Electronically Signed)
--- NOTE | 2025-02-18 15:53 | ED.FALL ---
HPI - Fall General Time Seen by Provider: 15:49 Date Seen: 02/18/25 Chief Complaint: Fall/Minor Trauma Stated Complaint: Fell, hit head, stiff neck Time Seen by Provider: 02/18/25 15:49 Source: patient, family and RN notes reviewed Mode of arrival: ambulatory Limitations: no limitations History of Present Illness HPI Narrative: This 79-year-old female was ambulatory into the ER after a fall about 15 stairs that happened around 1:30 p.m. today. She was in [place] when this happened, was carrying luggage and fell down the stairs. She proceeded to drive home to get checked out. She is here with her . She did hit her head, no loss of consciousness. She feels it hurts on the left side of her head and the back of the right side. No visual changes, no significant headache. No nausea or vomiting. She also feels like her neck is sore on the right side. 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 This is unchanged. She has no pain going into the arms. She did notice some clicking or clunking when she moves her left 5th finger and some bruising. She has a little left knee pain medially. She has been ambulatory. She notes no lower back pain, no chest or chest wall pain, no difficulty breathing, no pain with breathing. No abdominal pain, no pain in her pelvis or hips with walking. She is not on any blood thinners per her report. Her chart does list an 81 mg aspirin. Nursing staff did call trauma team activation after triage complaints. She does note that she has some baseline neck pain from arthritis. complaint: fall Related Data Home Medications ?Medication ?Instructions ?Recorded ?Confirmed calcium carbonate 500 mg PO DAILY 07/10/22 01/08/25 cholecalciferol (vitamin D3) 100 400 unit PO DAILY 07/10/22 01/08/25 mcg (4,000 unit) tablet cod liver oil 1 cap PO DAILY 07/10/22 01/08/25 magnesium oxide 400 mg PO DAILY 07/10/22 01/08/25 turmeric 400 mg capsule 450 mg PO DAILY 07/10/22 01/08/25 aspirin 81 mg tablet,delayed 81 mg PO DAILY 05/03/23 01/08/25 release Previous Rx's ?Medication ?Instructions ?Recorded estradiol 0.01% (0.1 mg/gram) 0.5 g vaginal QDAY #42.5 grams 05/11/24 vaginal cream (Estrace) Allergies Allergy/AdvReac Type Severity Reaction Status Date / Time Iodinated Contrast Media Allergy Verified 01/08/25 08:17 Review of Systems Status of ROS: Reports: 6 or more systems reviewed and unremarkable except as noted in History and [facility] Osteoporosis ?M81.0 - Age-related osteoporosis without current pathological fracture (ICD-10) CVA (cerebral vascular accident) (06/2022) ?I63.9 - Cerebral infarction, unspecified (ICD-10) Surgical History History of hernia repair ?Z98.890 - Other specified postprocedural states (ICD-10) ?Z87.19 - Personal history of other diseases of the digestive system (ICD-10) History of tonsillectomy ?Z90.89 - Acquired absence of other organs (ICD-10) History of 3 sections ?Z98.891 - History of uterine scar from previous surgery (ICD-10) History of arthroscopy of left knee (07/23/20) ?Z98.890 - Other specified postprocedural states (ICD-10) Family History Father Coronary artery disease, Onset Age: 75 Mother Colon cancer Maternal Grandmother Diabetes 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 . Nonsmoker, no alcohol use What is your current living situation?: I presently have a place to live Problems where you live: no known problems In the past 12 months, utilities in danger of being shut off: no In past 12 months, lack of transportation kept you from medical appts, meetings, work, or getting things needed for daily living: no In the past 12 mos, have been you worried that your food would run out before you had money to buy more?: never true In the past 12 mos, the food you bought just didn't last and you didn't have money to buy more?: never true Smoking Status: Never smoker How often do you have a drink containing alcohol: never AUDIT-C Alcohol total score: 0 Non-prescribed substance use: denies use How often does anyone, including family, friends and others, physically hurt you: never How often does anyone, including family, friends and others, insult or talk down to you: never How often does anyone, including family, friends and others, threaten you with harm: never How often does anyone, including family, friends and others, scream or curse at you: never Exam Const: Vital Signs, click to edit/add: Vital Signs - 24 hr 02/18/25 15:56 02/18/25 16:19 02/18/25 16:32 Temperature 97.3 F L 97.4 F L Pulse Rate 87 81 Pulse Rate [Pulse Oximeter] 89 Respiratory Rate 18 18 18 Blood Pressure 186/83 H 170/79 H Blood Pressure [Le ft Upper Arm] 205/97 H Pulse Oximetry 94 95 95 Oxygen Delivery Me thod Room Air Room Air Room Air 02/18/25 16:42 02/18/25 17:01 02/18/25 17:10 Temperature Pulse Rate 82 80 84 Pulse Rate [Pulse Oximeter] Respiratory Rate 20 Blood Pressure 181/75 H 167/76 H Blood Pressure [Le ft Upper Arm] Pulse Oximetry 95 95 95 Oxygen Delivery Me thod Room Air 02/18/25 17:33 Temperature Pulse Rate 83 Pulse Rate [Pulse Oximeter] Respiratory Rate Blood Pressure Blood Pressure [Le ft Upper Arm] Pulse Oximetry 96 Oxygen Delivery Me thod This 79-year-old female is ambulatory into the ED of her own accord. Gait is normal, she is alert, interactive, no apparent distress. Speech is normal, able speak in complete sentences. Pupils equal round reactive, sclera clear, symmetrical facial function. No drainage from nares or ears. She has a left parietal frontal bruised area with no open wound. She is sore along the right occiput but I cannot say that there is any raising of the tissue. No open wounds on her head. No midline tenderness of her neck or her spine. No visible abnormality along her neck or her back. Lungs are clear, good air entry, no wheezing crackles, no tachypnea, no accessory muscle use. Skin is normal on the back, no bruising. CV regular rate and rhythm, no murmur, normal S1-S2, no S3-S4. She is nontender through her shoulders and her arms, no chest wall tenderness. Abdomen is soft, nontender, nondistended, no organomegaly. No pain on palpation of the hips. Thighs without any traumatic change, right leg and foot without any abnormality or complaint of pain. She has some left medial knee pain without any swelling or bruising, no joint effusion noted. She has full range of motion of the knee, no definite ligamentous issue. No pain below the knee into the ankle or foot at this time. In her left 5th finger, there is some bruising along the medial finger at the base and along the PIP joint. She has some clicking or clunking but can do full flexion extension, this sensation is along the PIP joint. Neurovascular is intact. Documenting provider has reviewed patient's vital signs: yes Course Course ED Course: We will be imaging patient's head and neck with CT. Will do x-rays of the left 5th finger as well as her left knee. Need to rule out fractures, intracranial pathology and skull fractures. With her injury happening around 1:30 p.m., hopefully this implies stability to her injuries and will not find any serious abnormalities. Reevaluation(s) Time of Reevaluation #1: 16:40 Reevaluation #1: Reviewed negative x-rays with patient. Re-evaluation of her left finger shows some clicking or clunking sensation along the PIP joint. I do not see any definite dislocation but do feel that sensation she is feeling. I do think there could be some subluxation and ligamentous disruption. Did put her in a frog splint which is giving her some stability to keep this left 5th finger straight. She now does tell me that the left heel is hurting, there is a little pain along the medial aspect of the heel. No bruising. Will x-ray the heel or calcaneus just to ensure no fracture. Time of Reevaluation #2: 17:41 Reevaluation #2: Calcaneus x-ray is negative. Patient can discharge to home. Vital Signs Vital signs: Initial Vital Signs Temperature 97.3 F L 02/18/25 15:56 Temperature Source Temporal Artery Scan 02/18/25 15:56 Pulse Rate 89 02/18/25 15:56 Pulse Rhythm Regular 02/18/25 15:56 Respiratory Rate 18 02/18/25 15:56 Blood Pressure 205/97 H 02/18/25 15:56 Blood Pressure Mean 133 H 02/18/25 15:56 Blood Pressure Position Supine 02/18/25 15:56 Pulse Oximetry 94 02/18/25 15:56 Oxygen Delivery Method Room Air 02/18/25 15:56 Vital Signs Temperature 97.3 F L 02/18/25 15:56 Pulse Rate 89 02/18/25 15:56 Respiratory Rate 18 02/18/25 15:56 Blood Pressure 205/97 H 02/18/25 15:56 Pulse Oximetry 94 02/18/25 15:56 Oxygen Delivery Method Room Air 02/18/25 15:56 Temperature 97.4 F L 02/18/25 16:19 Pulse Rate 83 02/18/25 17:33 Respiratory Rate 20 02/18/25 16:42 Blood Pressure 167/76 H 02/18/25 17:01 Pulse Oximetry 96 02/18/25 17:33 Oxygen Delivery Method Room Air 02/18/25 16:42 MDM - Fall Imaging Data CT scan - head: Attestation: I have reviewed the pertinent imaging results. Radiologist's impression: Patient: SIM MUNOZ Facility:?[facility] Patient ID:?[id number] Site Patient ID:?[id number]. Site :?1945 Study:?CT-Head W/O-02/18/2025 4:10:12 PM Ordering Physician:Sabi Ziegler Final Report: Indication: Fall, hit head Technique: Volumetric multidetector CT images of the head were obtained without the administration of low osmolar intravenous contrast. Comparison: CT head July 10, 2022 Findings: There is no intra-axial or extra-axial fluid collection. There is no mass effect or midline shift. There is age-related cortical atrophy with mild sulcal widening and ex vacuo dilatation of the lateral ventricles. Redemonstration of old lacunar changes of the right greater than left basal ganglia. Moderate chronic small vessel disease change within the subcortical and periventricular white matter. Otherwise, the brain parenchyma is preserved in attenuation and buitrago-white differentiation. The orbits and their contents are grossly within normal limits. There is minimal frontal vertex subgaleal soft tissue hematoma. The underlying bony calvarium is grossly intact. There is minimal bubbly secretion within the posterior right ethmoid air cells. The mastoid air cells are well aerated. Impression: Stable age-related, remote ischemic and chronic small-vessel disease changes of the brain without acute intracranial abnormality. Minimal left frontal subgaleal/scalp hematoma. Please note that all CT scans at this facility use dose modulation, iterative reconstruction, and/or weight-based dosing when appropriate to reduce radiation dose to as low as reasonably achievable. Dictated by Gregory Gama MD @ 02/18/2025 4:25:31 PM (Electronic Signature) CT cervical spine: Attestation: I have reviewed the pertinent imaging results. Radiologist's impression: Patient: SIM MUNOZ Facility:?[facility] Patient ID:?[id number] Site Patient ID:?[id number]. Site :?1945 Study:?CT-Spine Cervical W/O TTA-02/18/2025 4:09:39 PM Ordering Physician:?Geno Ziegler Final Report: Indication: Fall, hit head Technique: Volumetric multidetector CT images of the cervical spine were obtained without the administration of IV contrast. Comparison: None available. Findings: The cervical vertebral body heights are grossly maintained with minimal endplate Schmorl`s defects. There is mild straightening of the normal cervical lordosis with trace anterolisthesis of C4 on C5. There is no displaced fracture or dislocation. There is moderate degenerative disc disease with disc height loss and marginal osteophyte formation. Moderate to severe degenerative change of the atlantoaxial joint. Moderate to severe facet arthrosis. Mild biapical pleural thickening and parenchymal scar. Impression: Moderate to severe degenerative changes of the cervical spine without acute osseous abnormality. Please note that all CT scans at this facility use dose modulation, iterative reconstruction, and/or weight-based dosing when appropriate to reduce radiation dose to as low as reasonably achievable. Dictated by Gregory Gama MD @ 02/18/2025 4:21:23 PM (Electronic Signature) XR left knee: Attestation: I have reviewed the pertinent imaging results. Radiologist's impression: Patient: SIM MUNOZ Facility:?[facility] Patient ID:?[id number] Site Patient ID:?[id number]. Site :?1945 Study:?XRay-Knee Left KNEE 2 VIEWS TTA-02/18/2025 4:17:56 PM Ordering Physician:?Geno Ziegler Final Report: Indication: LT KNEE PAIN, PAIN, FALL Technique: Two views of the left knee. Comparison: None. Findings: No acute displaced fracture or malalignment. Mild degenerative changes of the medial compartment of the knee. No significant knee joint effusion. Mild vascular calcification. Impression: No acute displaced fracture or malalignment. Dictated by Luiz Boothe MD @ 02/18/2025 4:28:32 PM (Electronic Signature) XR finger: Attestation: I have reviewed the pertinent imaging results. Radiologist's impression: Patient: SIM MUNOZ Facility:?[facility] Patient ID:?[id number] Site Patient ID:?[id number]. Site :?1945 Study:?XRay-Extremity Left 5TH FINGER-02/18/2025 4:16:31 PM Ordering Physician:?Geno Ziegler Final Report: INDICATION: Fall with left 5th finger clicking and bruising COMPARISON: None. TECHNIQUE: Three radiographic view(s) of the left 5th finger. FINDINGS: No evident acute displaced fracture. Normal osseous alignment. Minimal degenerative change in the 5th finger. Incompletely imaged degenerative changes elsewhere in the hand such as at the 1st CMC joint. IMPRESSION: No evident acute displaced fracture. Dictated by Harshad Robles MD @ 02/18/2025 4:28:40 PM (Electronic Signature) XR left calcaneus: Attestation: I have reviewed the pertinent imaging results. Radiologist's impression: Patient: SIM MUNOZ Facility:?[facility] Patient ID:?[id number] Site Patient ID:?[id number]. Site :?1945 Study:?XRay-Extremity Left 2V CALCANEUS-02/18/2025 5:05:10 PM Ordering Physician:?Geno Ziegler Final Report: Indication: Pain after fall Technique: Left calcaneus 2 views. Comparison: None. Findings: Bones: Alignment is normal. No fractures or bone lesions. Joint spaces: Unremarkable. Soft tissues: Unremarkable. Impression: No sign of acute injury. Dictated by Jenn Oneill MD @ 02/18/2025 5:37:35 PM (Electronic Signature) Discharge Plan Discharge Clinical Impression: Fall Qualifiers: Encounter type: initial encounter Qualified Code(s): W19.XXXA - Unspecified fall, initial encounter Hematoma of frontal scalp Qualifiers: Encounter type: initial encounter Qualified Code(s): S00.03XA - Contusion of scalp, initial encounter Closed head injury Qualifiers: Encounter type: initial encounter Qualified Code(s): S09.90XA - Unspecified injury of head, initial encounter Acute cervical myofascial strain Qualifiers: Encounter type: initial encounter Qualified Code(s): S16.1XXA - Strain of muscle, fascia and tendon at neck level, initial encounter Injury of finger Qualifiers: Encounter type: initial encounter Laterality: left Qualified Code(s): S69.92XA - Unspecified injury of left wrist, hand and finger(s), initial encounter Acute knee pain Qualifiers: Laterality: left Qualified Code(s): M25.562 - Pain in left knee Patient Disposition: Home, Self-Care Condition: Stable Instructions: Cervical Strain (ED), Head Injury (ED), Knee Pain (ED), Scalp Contusion in Adults (ED) Additional Instructions: Use splint on the finger to keep it straight over the next week. Need to follow up in clinic within the week and have this finger re-evaluated. If it continues to have the clicking or clunking sensation, may need to see orthopedics. Can use Tylenol per bottle directions as needed for any discomfort. Activity Level: Activity as Tolerated Prescriptions: No Action estradiol [Estrace] 0.01 % (0.1 mg/gram) cream 0.5 g vaginal QDAY Qty: 42.5 1RF Rx Instructions: nightly x 2 weeks, then twice weekly aspirin 81 mg tablet,delayed release (DR/EC) 81 mg PO DAILY turmeric 400 mg capsule 450 mg PO DAILY magnesium oxide 400 mg magnesium tablet 400 mg PO DAILY calcium carbonate 500 mg calcium (1,250 mg) tablet 500 mg PO DAILY cod liver oil Capsule 1 cap PO DAILY cholecalciferol (vitamin D3) 100 mcg (4,000 unit) tablet 400 unit PO DAILY Follow Up/Referrals: Brijesh Ken MD [Primary Care Provider, Internal Medicine] Stand Alone Forms: [employer] Info Instructions
--- NOTE | 2025-02-18 16:41 | CRLHL7_ITS ---
For Patients: As a result of the Cures Act, medical imaging exams and procedure reports are released immediately into your electronic medical record. You may view this report before your referring provider. If you have questions, please contact your health care provider. Indication: Pain after fall Technique: Left calcaneus 2 views. Comparison: None. Findings: Bones: Alignment is normal. No fractures or bone lesions. Joint spaces: Unremarkable. Soft tissues: Unremarkable. Impression: No sign of acute injury. Dictated by Jenn Oneill MD @ 02/18/2025 5:37:35 PM (Electronically Signed)
== END 2025-02-18 17:52 | disposition home or self-care (01) ==
PROVIDERS: Emergency Provider Family Medicine; PCP Internal Medicine
DX: S16.1XXA Strain of muscle, fascia and tendon at neck level, initial encounter (principal); M25.562 Pain in left knee; S69.92XA Unspecified injury of left wrist, hand and finger(s), initial encounter; W10.9XXA Fall (on) (from) unspecified stairs and steps, initial encounter
CPT/HCPCS: 70450; 72125; 73140; 73560; 73650; 99284; 99291; G0390